=== PATIENT | female | born 2000 | race Caucasian/White ===

== ENCOUNTER 2023-07-27 14:35 | Emergency (ER) | payer OTHER, SELFPAY ==
[2023-07-27 14:46] VITALS: BP 106/79; PULSE 89; RESP 14; TEMP 36.6; O2SAT 99; BMI 44.7
--- NOTE | 2023-07-27 15:59 | ED_ITS ---
HPI - URI/Sore Throat General Chief Complaint: Upper Respiratory Infection Stated Complaint: CONGESTION/LUMP IN CHEST Time Seen by Provider: 07/27/23 14:53 Source: patient History of Present Illness HPI Narrative: Patient presenting with upper respiratory runny nose and mild symptoms but she also have this right-sided medial lump that she noted in her right breast she noted that 3 to 4 days ago and she just was menstruating during that time. No tender abdominal pain no nausea no vomiting no other complaints No history of breast-feeding and there is no history of any fever chills or any other complaints Related Data Allergies Allergy/AdvReac Type Severity Reaction Status Date / Time No Known Drug Allergies Allergy Verified 07/27/23 14:50 Review of Systems ROS Status of ROS 10 or more systems reviewed and unremark able except as noted in history and below Exam Narrative Exam Narrative: Nurses notes and vital signs reviewed and patient is not hypoxic. General: Well-appearing and in no apparent distress. Skin: Warm, dry, no pallor noted. No rash. Head: Normocephalic, atraumatic. Neck: Supple, non-tender. Eye: Pupils are equal, round and EOMI. No scleral icterus. Ears, Nose, Mouth, and Throat: TM are clear, no nasal mucosal hypertrophy. Oral mucosa is moist, no posterior oropharynx erythema, uvula is mid-line Cardiovascular: Regular Rate and Rhythm without murmur, gallop or rub. Respiratory: No accessory muscle use or respiratory distress. Lungs are clear to auscultation, no wheezing, rales or rhonchi Chest Wall: no tenderness Back: No midline thoracic or lumbar vertebral tenderness. No CVA tenderness Musculoskeletal: normal ROM, no calf or popliteal tenderness, no lower extremity edema/swelling GI: Abdomen is soft, non-distended. Normal bowel sounds. No masses appreciated. No tenderness to palpation. No rebound, guarding, or rigidity noted. Neurological: A&O x4. No cranial nerve dysfunction observed. No truncal ataxia. Moves all extremities. Sensation intact. Psychiatric: Cooperative and interactive. Normal mood and affect. Breast examination Left breast examination is benign right breast examination shows no nipple retraction and no signs of infection the patient have a almost a 1 x 2 cm lump on the medial aspect of the lower medial quadrant of the breast that is movable nontender on examination and does not show redness hotness or any signs of skin infection Constitutional Vital Signs, click to edit/add: Last Vital Signs Temp 97.9 F 07/27/23 14:46 Pulse 89 07/27/23 14:46 Resp 14 07/27/23 14:46 BP 106/79 07/27/23 14:46 Pulse Ox 99 07/27/23 14:46 Course Vital Signs Vital signs: Vital Signs Temperature 97.9 F 07/27/23 14:46 Pulse Rate 89 07/27/23 14:46 Respiratory Rate 14 07/27/23 14:46 Blood Pressure 106/79 07/27/23 14:46 Pulse Oximetry 99 07/27/23 14:46 Temperature 97.9 F 07/27/23 14:46 Pulse Rate 89 07/27/23 14:46 Respiratory Rate 14 07/27/23 14:46 Blood Pressure 106/79 07/27/23 14:46 Pulse Oximetry 99 07/27/23 14:46 MDM - URI/Sore Throat MDM Narrative Medical decision making narrative: Patient mentioned that she have a positive family history of breast cancer but she did not specify who exactly Right now her presentation is less likely to be due to cancer but due to the history the patient will be ordered outpatient mammogram diagnostic for the right breast and she was referred to her result to her [employer] doctor as her primary care doctor is unknown Patient to continue supportive care for her viral infection symptoms The patient also was given the option that she need to have the ultrasound done by following up with her primary care but I did explain to the patient that is very important as to follow-up specially with her history of family breast cancer Discharge Plan Discharge Chief Complaint: Upper Respiratory Infection Clinical Impression: Upper respiratory infection Qualifiers: URI type: unspecified URI Qualified Code(s): J06.9 - Acute upper respiratory infection, unspecified Breast lump Qualifiers: Laterality: right Breast mass location: lower inner quadrant Qualified Code(s): N63.14 - Unspecified lump in the right breast, lower inner quadrant Patient Disposition: Home, Self-Care Time of Disposition Decision: 15:59 Condition: Good Instructions: Upper Respiratory Infection (DC), Breast Mass (ED) Stand Alone Forms: Portal Instructions Referrals: ALEXYS DELGADO [Primary Care Provider] - 1 week
== END 2023-07-27 16:18 | disposition home or self-care (01) ==
PROVIDERS: Emergency Provider Emergency Medicine; PCP Obstetrics & Gynecology
DX: J06.9 Acute upper respiratory infection, unspecified (principal); N63.14 Unspecified lump in the right breast, lower inner quadrant
CPT/HCPCS: 99283

== ENCOUNTER 2024-10-16 10:27 | Emergency (ER) | payer OTHER, SELFPAY ==
--- OUTSIDE RECORDS SUMMARY | 2024-10-16 10:38 | XMS_ITS | CCD ---
Demographics Address [address] [place], [place] [id number] Mobile Preferred Language en Marital Status Bahai Affiliation Unknown Race White Ethnic Group Not or Lati no Author Organization [facility] Care Team Providers Care Director Of Brand Marketing Name Role Phone YURI PHILIP Unavailable UnavailYURI Ramriez Unavailable Unavaila dick WOODSVENTURA, VESELIN Unavailable Unavailable MIKO CARLOS Unavailable Unavailable Unavailable Primary Care Provider UnavailGRACIA Abdi Attending Unavailable GRACIA WHITNEY Consulting Unavailable GRACAI WHITNEY Admitting Unavailable DR ALEXYS DELGADO Primary Care Unavailable MIKO CROWDER Unavailable SHABBIR MI Primary Care Unavailable Mattie Lipscomb Unavailable Unavailable Unavailable Shabbir MI Primary Care Physician Doreen GARRETT Unavailable Shabbir Mi Primary Care Provider MD Raul Ogden Jr Emergency Provider GIANCARLO Candelario Emergency Provider [phone] Shabbir Mi Primary Care Provider [phone] MD Evan Moore Attending Provider [phone] NO FAMILY, PHYSICIAN Primary Care Provider Unava ilable NONE, XXXX Primary Care Physician Unavailab eugene Lipscomb, Dr. Mattie Weir Primary Care U navailable Ruel, Dr. Mattie Weir Attending U navailable Ruel, Dr. Mattie Weir Primary Care U navailable Ruel, Dr. Mattie Weir Attending U navailable Self, Referral Referring Unavailable Ruel, Dr. Mattie Weir Primary Care U navailable Ksdonnell, Dr. Orlando Lozano Primary Care Unava ilable [facility], Dr. Orlando Lozano Attending Unava ilable [facility], Dr. Orlando Lozano Referring Unava ilable Self, Referral Referring Unavailable Musat, Jp Soraya Attending Unavailernesto Lipscomb, Dr. Mattie Weir Attending U brittney Lipscomb, Dr. Mattie Weir [facility] Physician Unava ilable Shabbir Mi Primary Care Provider [phone] MD Evan Moore Attending Provider NO FAMILY, PHYSICIAN Primary Care Provider Unava ilable NON STAFF Primary Care Provider UnavailDO Sanaz Weldon Attending Provider MD Evan Moore Admit Provider MD Evan Moore Admit Provider Gary Candelario Admitting Unavailable Gary Candelario Attending Unavailable Shabbir Mi Primary Care Unavailable Printlizbeth, Evan Admitting Unavailable Teresa Evan Attending Unavailable Shabbir Mi Primary Care Unavailable Printy, Evan Admitting Unavailable Teresa Evan Attending Unavailable NO FAMILY, PHYSICIAN Primary Care Unavailable Dinorah Mooreian Admitting Unavailable Dinorah Mooreian Attending Unavailable NON STAFF Primary Care Unavailable Kareen Sanaz Admitting Unavailable Kareen Sanaz Attending Unavailable NON STAFF Primary Care Unavailable Shabbir Mi Primary Care Unavailable Raul Ogden Jr Admitting Unavailable Raul Ogden Jr Attending Unavailable Mattie Lipscomb MD Unavailable [phone] Orlando Pace MD Primary Care Provider DOREEN HA Primary Care Physician [phone] DOREEN HA Primary Care Unavailable Doaryen, DO Minervan A Attending Unavailable DOREEN HA Primary Care Unavailable Ramin, Astrit H Attending Unavailable Bi Galeana Attending Unavailable DOREEN HA Primary Care Unavailable Blake Rivera Attending Unavailable DOREEN HA Primary Care Unavailable Dokken, DO Kaylinn A Attending Unavailable Papi CRAWFORD Attending Unavailable Bi Galeana Attending Unavailable Ramin, Astrit H Attending Unavailable Bi Galeana Attending Unavailable DOREEN HA Primary Care Unavailable Hajdari, Astrit H Attending Unavailable LELAND, DOREEN Primary Care Unavailable LELAND, DOREEN Primary Care Unavailable Kosta Carter Attending Unavailable JEANINE TORRE Admitting Unavailable JEANINE TORRE Attending Unavailable LELAND, DOREEN Primary Care Unavailable DO Aleta Oliveira Attending Unavailable DoDO Aleta kapoor Attending Unavailable LELAND, DOREEN Primary Care Unavailable Unallocated , Noms Provider Primary Care Prov salvador LELAND, DOREEN Primary Care Unavailable Hamarcin, Astrit H Attending Unavailable Bi Galeana Attending Unavailable LELAND, DOREEN Primary Care Unavailable Bi Galeana Attending Unavailable LELAND, DOREEN Primary Care Unavailable LELAND, DOREEN Primary Care Unavailable LELANDDOREEN LICEA Attending Unavailable LELAND, DOREEN Admitting Unavailable Hamarcin, Astrit H Attending Unavailable LELAND, DOREEN Primary Care Unavailable LELAND, DOREEN Attending Unavailable LELAND, DOREEN Primary Care Unavailable LELAND, DOREEN Admitting Unavailable DOREEN GARRETT Attending Unavailable DOLRUBI, FAMILIA Rosas Attending Unavailable DOLCE, FAMILIA Rosas Attending Unavailable DOLCE, FAMILIA Rosas Attending Unavailable DOLCE, FAMILIA Rosas Attending Unavailable LELAND, DOREEN Attending Unavailable LELAND, DOREEN Admitting Unavailable LELAND, DOREEN Primary Care Unavailable Papi CRAWFORD Attending Unavailable LELAND, DOREEN Primary Care Unavailable Luz Marina FREGOSO Attending Unavailable LELAND, DOREEN Primary Care Unavailable LELAND, DOREEN Primary Care Unavailable Luz Marina FREGOSO Attending Unavailable DOREEN HA Attending Unavailable LELAND, DOREEN Referring Unavailable LELAND, DOREEN Primary Care Unavailable Papi CRAWFORD Attending Unavailable LELAND, DOREEN Primary Care Unavailable Luz Marina FREGOSO Attending Unavailable LELAND, DOREEN Primary Care Unavailable ILDEFONSOLuz Marina WHEELER Attending Unavailable LELAND, DOREEN Primary Care Unavailable LELAND, DOREEN Primary Care Unavailable Eric Ramírez Attending Unavailable Medications Current Medications Medication Drug Class(es) Dates Sig (Normalized) Sig (Original) acyclovir 400 mg oral tablet (1 source) Herpesvirus Nucleoside Analog DNA Polymerase Inhibitor, Herpes Simplex Virus Nucleoside Analog DNA Polymerase Inhibitor, Herpes Zoster Virus Nucleoside Analog DNA Polymerase Inhibitor Start: 01-04-2020 End: 01-14-2020 take 1 tablet by mouth three times daily acyclovir (ZOVIRAX) 400 MG tablet Take 1 tablet by mouth 3 times daily for 10 days If you have repeat flareup, take 400 mg 3 times daily for 5 days 30 tablet 0 01/04/2020 01/14/2020 Active amoxicillin 500 mg oral capsule (1 source) Penicillin-class Antibacterial Start: 05-17-2024 End: 05-27-2024 take 1 capsule by mouth three times daily amoxicillin 500 mg Cap 500 mg = 1 cap(s), Oral, TID, X 10 day(s), # 30 cap(s), Refills(s) 0, Pharmacy: [id number], 162, cm, 05/09/24 14:21:00 EDT, Height/Length Dosing, 121.6, kg, 05/09/24 14:21:00 EDT, Weight Dosing Start Date: 05/17/24 Stop Date: 05/27/24 Status: Ordered amoxicillin 875 mg / clavulanate 125 mg oral tablet (7 sources) Penicillin-class Antibacterial Start: 08-22-2023 End: 09-01-2023 Augmentin 875 mg-125 mg Tab 1 tab(s), Oral, q12hr for 10 day(s), 20 tab(s), Refill(s) 0, [facility], 162, cm, 08/22/23 22:19:00 EST, Height/Length Dosing, 122.4, kg, 08/22/23 22:19:00 EST, Weight Dosing Start Date: 08/22/23 Stop Date: 09/01/23 Status: Ordered Start: 04-07-2021 End: 04-16-2022 take 1 tablet by mouth twice daily Amoxicillin-Pot Clavulanate (Augmentin) 875-125 mg tablet Discontinued 1 TAB PO Twice daily 16 05April 07, 2021 12:00am April 16, 2022 4:21am azithromycin 250 mg Tab 5-day Dose Pack (Z-Rafi) (1 source) Start: 04-24-2023 End: 04-29-2023 azithromycin 250 mg Tab 5-day Dose Pack (Z-Rafi) = 1 packet(s), Oral, As Directed, as directed on package labeling, X 5 day(s), # 6 tab(s), Refills(s) 0, Pharmacy: [id number], 163, cm, 04/24/23 9:56:00 EDT, Height/Length Dosing, 118, kg, 04/24/23 9:56:00 EDT, Weight Dosing Start Date: 04/24/23 Stop Date: 04/29/23 Status: Ordered cephalexin 500 mg oral capsule (3 sources) Cephalosporin Antibacterial Start: 07-25-2023 End: 08-01-2023 take 1 capsule by mouth every six hours Keflex 500 mg Cap 500 mg = 1 cap(s), Oral, q6hr, X 7 day(s), # 28 cap(s), Refills(s) 0, Pharmacy: [facility], 163, cm, 07/25/23 20:26:00 EST, Height/Length Dosing, 123.3, kg, 07/25/23 20:26:00 EST, Weight Dosing Start Date: 07/25/23 Stop Date: 08/01/23 Status: Ordered Start: 11-27-2022 End: 12-02-2022 take 1 capsule by mouth three times daily Keflex 500 mg Cap 500 mg = 1 cap(s), Oral, TID, X 5 day(s), # 15 cap(s), Refills(s) 0, Pharmacy: [facility], 160, cm, 11/27/22 20:40:00 EDT, Height/Length Dosing, 119.2, kg, 11/27/22 20:40:00 EDT, Weight Dosing Start Date: 11/27/22 Stop Date: 12/02/22 Status: Ordered cyclobenzaprine hydrochloride 10 mg oral tablet (5 sources) Muscle Relaxant Start: 05-30-2024 take 1 tablet by mouth three times daily as needed for muscle spasms cyclobenzaprine 10 mg Tab 10 mg = 1 tab(s), Oral, TID, PRN for spasm, # 30 tab(s), Refills(s) 0, Pharmacy: [facility], 162, cm, 05/30/24 14:27:00 EST, Height/Length Dosing, 127, kg, 05/30/24 14:27:00 EST, Weight Dosing Start Date: 05/30/24 Status: Ordered dextromethorphan hydrobromide 3 mg/ml / promethazine hydrochloride 1.25 mg/ml oral solution (1 source) Phenothiazine, Uncompetitive R-[id number]-[id number]-aspartat e Receptor Antagonist, Sigma-1 Agonist Start: 09-23-2023 End: 09-28-2023 take 5 mL by mouth every six hours for cough dextromethorphan-pr omethazine 15 mg-6.25 mg/5 mL Oral Syrup 5 mL 5 mL, Oral, q6hr for cough for 5 day(s), 200 mL, Refill(s) 0, [facility], 162, cm, 09/23/23 8:58:00 EST, Height/Length Dosing, 121.6, kg, 09/23/23 8:58:00 EST, Weight Dosing Start Date: 09/23/23 Stop Date: 09/28/23 Status: Ordered dicyclomine hydrochloride 10 mg oral capsule (3 sources) Anticholinergic Start: 03-09-2019 End: 03-19-2019 take 1 capsule by mouth four times daily before mealtime dicyclomine (BENTYL) 10 MG capsule Take 1 capsule by mouth 4 times daily (before meals and nightly) for 10 days 40 capsule 0 03/09/2019 Active fluconazole 150 mg oral tablet (3 sources) Azole Antifungal Start: 12-30-2019 fluconazole (DIFLUCAN) 150 MG tablet Take one tablet after you finish antibiotic 1 tablet 0 12/30/2019 Active Start: 12-30-2019 End: 12-30-2019 fluconazole (DIFLUCAN) table t 200 mg HYDROmorphone hydrochloride 2 mg oral tablet (2 sources) Opioid Agonist Start: 11-06-2022 End: 11-13-2022 take 1 tablet by mouth every four hours as needed for pain Dilaudid 2 mg Tab 2 mg = 1 tab(s), Oral, q4hr, PRN for pain, X 7 day(s), # 30 tab(s), Refills(s) 0, Pharmacy: [facility], 160, cm, 11/06/22 9:52:00 EDT, Height/Length Dosing, 125.6, kg, 11/06/22 9:52:00 EDT, Weight Dosing Start Date: 11/06/22 Stop Date: 11/13/22 Status: Ordered ibuprofen 600 mg oral tablet (20 sources) Nonsteroidal Anti-inflammatory Drug Start: 11-06-2022 take 1 tablet by mouth every six hours ibuprofen 600 mg Tab 600 mg = 1 tab(s), Oral, q6hr, # 40 tab(s), Refills(s) 0, Pharmacy: [facility], 160, cm, 11/06/22 9:52:00 EDT, Height/Length Dosing, 125.6, kg, 11/06/22 9:52:00 EDT, Weight Dosing Start Date: 11/06/22 Status: Ordered 3 ml insulin isophane, human 100 unt/ml pen injector (20 sources) Start: 10-26-2022 Insulin Nph Isoph U-100 Human (Humulin N Nph Insulin Kwikpen) 100 unit/mL (3 mL) Insulin Pen Active 12 UNIT SUBCUT Twice daily October 26, 2022 12:00am Start: 09-27-2022 inject 12 [IU] by saenz bcutaneous injection once daily in the evening Humulin N 12 unit(s), SubCutaneous, qPM, Refills(s) 0 Start Date: 09/27/22 Status: Ordered Start: 09-27-2022 inject 12 [IU] by saenz bcutaneous injection once daily in the morning Humulin N 12 unit(s), SubCutaneous, qAM, Refills(s) 0 Start Date: 09/27/22 Status: Ordered Lidocaine 2% Viscous (7 sources) Start: 05-09-2024 Lidocaine 2% Viscous 0.1 gm, 5 mL, Topical, QIDACHS, 100 mL, Refill(s) 0, [facility], 162, cm, 05/09/24 14:21:00 EDT, Height/Length Dosing, 121.6, kg, 05/09/24 14:21:00 EDT, Weight Dosing Start Date: 05/09/24 Status: Ordered methocarbamol 750 mg oral tablet (1 source) Muscle Relaxant Start: 01-14-2023 End: 01-21-2023 take 1 tablet by mouth three times daily Robaxin-750 oral tablet 750 mg = 1 tab(s), Oral, TID, X 7 day(s), # 21 tab(s), Refills(s) 0, Pharmacy: [facility], 160, cm, 01/14/23 10:35:00 EDT, Height/Length Dosing, 121, kg, 01/14/23 10:35:00 EDT, Weight Dosing Start Date: 01/14/23 Stop Date: 01/21/23 Status: Ordered methylPREDNISolone 4 mg oral tablet (3 sources) Corticosteroid Start: 05-19-2024 End: 05-19-2024 take 1 tablet by mouth once methylPREDNISolone (Medrol Dospak) 4 MG tablets Indications: Acute Bursitis Take 1 tablet (4 mg) by mouth 1 (one) time for 1 dose Follow schedule on package instructions 1 each 05/19/2024 05/19/2024 Active Start: 02-27-2023 End: 03-05-2023 Medrol 4 mg Tab = 1 packet(s ), Oral, As Directed, as directed on package labeling, X 6 day(s), # 21 tab(s), Refills(s) 0, Pharmacy: [facility], 163, cm, 02/27/23 10:56:00 EDT, Height/Length Dosing, 118, kg, 02/27/23 10:56:00 EDT, Weight Dosing Start Date: 02/27/23 Stop Date: 03/05/23 Status: Ordered nitrofurantoin, macrocrystals 25 mg / nitrofurantoin, monohydrate 75 mg oral capsule (8 sources) Nitrofuran Antibacterial Start: 10-26-2022 take 1 capsule by mouth every twelve hours at mealtime Nitrofurantoin Monohyd/M-Cryst (Macrobid) 100 mg Capsule Active 100 MG PO Q12H October 26, 2022 12:00am must administer with a meal/food Start: 01-16-2022 take [address] [facility] once daily Nitrofurantoin Monohyd Macro 100 MG Oral Capsule TAKE 1 CAPSULE EVERY 12 HOURS DAILY. Quantity: 20 Refills: 0 Ordered: 16-Jan-2022 Mattie Lipscomb MD Start : 16-Jan-2022 Active Start: 01-04-2020 End: 01-11-2020 take 1 capsule by mouth twice daily nitrofurantoin, macrocrystal-monohydrate, (MACROBID) 100 MG capsule Take 1 capsule by mouth 2 times daily for 7 days 14 capsule 0 01/04/2020 01/11/2020 Active Raysal (No Known Home Meds) (1 source) Start: 04-20-2022 Raysal (No Known Home Meds) Active April 20, 2022 12:00am nystatin 913091 unt/ml topical cream (2 sources) Polyene Antifungal Start: 12-30-2019 nystatin (MYCOSTATIN) 784897 UNIT/GM cream Apply topically 2 times daily. 1 Tube 0 12/30/2019 Active penicillin v potassium 500 mg oral tablet (1 source) Start: 05-09-2024 End: 05-16-2024 take 1 tablet by mouth every six hours penicillin V potassium 500 mg Tab 500 mg = 1 tab(s), Oral, q6hr, X 7 day(s), # 28 tab(s), Refills(s) 0, Pharmacy: [facility], 162, cm, 05/09/24 14:21:00 EDT, Height/Length Dosing, 121.6, kg, 05/09/24 14:21:00 EDT, Weight Dosing Start Date: 05/09/24 Stop Date: 05/16/24 Status: Ordered polyethylene glycol 3350 84585 mg powder for oral solution (1 source) Osmotic Laxative Start: 03-09-2019 End: 04-08-2019 take 17 g by mouth once daily polyethylene glycol (GLYCOLAX) powder Take 17 g by mouth daily 510 g 0 03/09/2019 04/08/2019 Active Multivitamins with Folic Acid 1.25 mg oral tablet (20 sources) Start: 09-27-2022 Multivitamins with Folic Acid 1.25 mg oral tablet Refill(s) 0 Start Date: 09/27/22 Status: Ordered [id number] Acid ( Multi) 27-800 mg-mcg Tablet (2 sources) Start: 10-26-2022 [id number] Acid ( Multi) 27-800 mg-mcg Tablet Active TAB PO October 26, 2022 12:00am sodium phosphate 67.8 mg/ml / sodium phosphate, monobasic 185 mg/ml enema (1 source) Start: 03-09-2019 End: 03-09-2019 fleet rectal enema 1 enema sulfamethoxazole 800 mg / trimethoprim 160 mg oral tablet (15 sources) Dihydrofolate Reductase Inhibitor Antibacterial, Sulfonamide Antimicrobial Start: 07-27-2023 Bactrim D.S. 800 mg-160 mg Tab 1 tab(s), Oral, BID, 20 tab(s), Refill(s) 0, [facility], 163, cm, 07/27/23 21:11:00 EST, Height/Length Dosing, 123.4, kg, 07/27/23 21:11:00 EST, Weight Dosing Start Date: 07/27/23 Status: Ordered Start: 12-30-2019 End: 01-04-2020 take 1 tablet by mouth twice daily sulfamethoxazole-trimethoprim (BACTRIM D S) 800-160 MG per tablet Take 1 tablet by mouth 2 times daily for 5 days 10 tablet 0 12/30/2019 01/04/2020 Discontinued Start: 12-30-2019 End: 12-30-2019 sulfamethoxazole-trimethopri m (BACTRIM DS;SEPTRA DS) 800-160 MG per tablet 1 tablet Zofran ODT 4 mg Tab-Dis (20 sources) Start: 09-23-2023 take 1 tablet by mouth three times daily Zofran ODT 4 mg Tab-Dis 4 mg = 1 tab(s), Oral, TID, # 15 tab(s), Refills(s) 0, Pharmacy: [facility], 162, cm, 09/23/23 8:58:00 EST, Height/Length Dosing, 121.6, kg, 09/23/23 8:58:00 EST, Weight Dosing Start Date: 09/23/23 Status: Ordered Start: 07-27-2023 take 1 tablet by delon th every eight hours Zofran ODT 4 mg Tab-Dis 4 mg = 1 tab(s), Oral, q8hr, # 12 tab(s), Refills(s) 0, Pharmacy: [facility], 163, cm, 07/27/23 21:11:00 EST, Height/Length Dosing, 123.4, kg, 07/27/23 21:11:00 EST, Weight Dosing Start Date: 07/27/23 Status: Ordered Start: 07-13-2023 take 1 tablet by delon th every eight hours as needed for nausea Zofran ODT 4 mg Tab-Dis 4 mg = 1 tab(s), Oral, q8hr, PRN Nausea/Vomiting, # 12 tab(s), Refills(s) 0, Pharmacy: [facility], 163, cm, 07/13/23 15:31:00 EST, Height/Length Dosing, 117.9, kg, 07/13/23 15:31:00 EST, Weight Dosing Start Date: 07/13/23 Status: Ordered Completed/Discontinued Medications Medication Drug Class(es) Dates Sig (Normalized) Sig (Original) azithromycin 500 mg oral tablet (1 source) Macrolide Antimicrobial Start: 01-04-2020 End: 01-04-2020 azithromycin (ZITHROMAX) tablet 1,000 mg cefTRIAXone 250 mg injection (1 source) Cephalosporin Antibacterial Start: 01-04-2020 End: 01-04-2020 cefTRIAXone (ROCEPHIN) injection 250 mg Iopamidol (1 source) Radiographic Contrast Agent Start: 03-08-2019 End: 03-08-2019 iopamidol (ISOVUE-300) 61 % injection 100 mL magnesium citrate (1 source) Start: 03-09-2019 End: 03-09-2019 magnesium citrate solution 296 mL metroNIDAZOLE 500 mg oral tablet (1 source) Nitroimidazole Antimicrobial Start: 01-04-2020 End: 01-04-2020 metroNIDAZOLE (FLAGYL) tablet 2,000 mg naproxen 500 mg oral tablet (20 sources) Nonsteroidal Anti-inflammatory Drug Start: 11-27-2022 take 1 tablet by mouth twice daily naproxen 500 mg Tab 500 mg = 1 tab(s), Oral, BID, Take one tab by mouth two times a day, # 14 tab(s), Refills(s) 0, Pharmacy: [facility], 160, cm, 01/14/23 10:35:00 EDT, Height/Length Dosing, 121, kg, 01/14/23 10:35:00 EDT, Weight Dosing Start Date: 01/14/23 Status: Ordered Start: 07-13-2021 End: 04-16-2022 take 1 tablet by mouth twice daily Naproxen (Naprosyn) 500 mg tablet Discontinued 500 MG PO Twice daily July 13, 2021 1:00am April 16, 2022 4:21am ondansetron 4 mg disintegrating oral tablet (5 sources) Serotonin-3 Receptor Antagonist Start: 04-20-2022 End: 09-09-2022 take 4 mg by mouth four times daily Ondansetron Discontinued 4 MG PO Four times daily April 20, 2022 12:00am September 09, 2022 2:43pm Start: 03-09-2019 End: 03-14-2019 take 1 tablet by mouth every eight hours as needed for nausea ondansetron (ZOFRAN ODT) 4 MG disintegrating tablet Take 1 tablet by mouth every 8 hours as needed for Nausea or Vomiting 15 tablet 0 03/09/2019 03/14/2019 Active phenazopyridine hydrochloride 200 mg oral tablet (1 source) Start: 11-23-2018 End: 03-08-2019 take 1 tablet by mouth three times daily as needed for pain phenazopyridine (PYRIDIUM) 200 MG tablet Take 1 tablet by mouth 3 times daily as needed for Pain 9 tablet 0 11/23/2018 03/08/2019 Discontinued 50 ml sodium chloride 9 mg/ml injection (1 source) Start: 03-08-2019 End: 03-09-2019 0.9 % sodium chloride bolus Problems Active Problems Problem Classification Problem Date Documented Da te Episodic/Chronic Abdominal pain (2 sources) Lower abdominal pain; Translations: [Abdominal pain] Onset: 11-27-2022 Episodic Anxiety disorders (20 sources) Anxiety; Translations: [Posttraumatic stress disorder] Onset: 01-10-2023 12-13-2018 Chronic Cardiac dysrhythmias (10 sources) Cardiac arrhythmia; Translations: [Cardiac arrhythmia, unspecified] Onset: 12-11-2022 01-10-2023 Chronic Contraceptive and procreative management (20 sources) Contraception ; Translations: [Sterilization requested] Onset: 11-06-2022 06-15-2020 Episodic Diabetes or abnormal glucose tolerance complicating ; childbirth; or the puerperium (20 sources) Gestational diabetes mellitus; Translations: [Gestational diabetes mellitus in childbirth] Onset: 08-16-2022 10-08-2022 Episodic Disorders of teeth and jaw (2 sources) Disorder of teeth AND/OR supporting structures; Translations: [Other specified disorders of teeth and supporting structures] Onset: 05-09-2024 Episodic E Codes: Natural/environment (6 sources) Cat scratch - wound; Translations: [Scratched by cat, initial encounter] 04-07-2021 Episodic Early or threatened labor (4 sources) False labor before 37 completed weeks of gestation, third trimester; Translations: [FALSE LABR BEFOR 37 WK GEST 3RD TRI] Onset: 12-20-2020 Episodic Malaise and fatigue (20 sources) Fatigue; Translations: [Other fatigue] Onset: 01-10-2023 12-13-2018 Episodic Menstrual disorders (20 sources) Amenorrhea 06-15-2020 Chronic Mood disorders (20 sources) Mood disorder; Translations: [Bipolar disorder, unspecified] Onset: 01-09-2023 12-16-2018 Chronic Mycoses (1 source) Candidiasis of skin; Translations: [Skin yeast infection] Episodic Nausea and vomiting (3 sources) Nausea; Translations: [Nausea and vomiting] Onset: 07-13-2023 Episodic Nonmalignant breast conditions (1 source) Inflammatory disorder of breast; Translations: [Mastitis without abscess] Onset: 07-25-2023 Episodic Nonspecific chest pain (8 sources) Atypical chest pain; Translations: [Other chest pain] Onset: 02-07-2022 01-09-2023 Episodic Other complications of (20 sources) Maternal obesity complicating , childbirth and the puerperium, antepartum; Translations: [Obesity complicating , second trimester] Onset: 12-11-2022 Resolved: 01-10-2023 07-17-2020 Chronic Other complications of (20 sources) High risk ; Translations: [Supervision of high risk , unspecified, second trimester] Onset: 01-10-2023 07-17-2020 Episodic Other complications of (20 sources) Mental disorder during - baby not yet delivered; Translations: [Other mental disorders complicating , unspecified trimester] Onset: 01-10-2023 06-15-2020 Episodic Other connective tissue disease (7 sources) Fibromyalgia; Translations: [Myalgia and myositis, unspecified] Onset: 01-09-2023 01-10-2023 Episodic Other connective tissue disease (20 sources) Pain in upper limb 10-18-2019 Episodic Other connective tissue disease (1 source) Disorder of soft tissue; Translations: [Other specified soft tissue disorders] Onset: 11-11-2022 Episodic Other connective tissue disease (1 source) Spasm; Translations: [Other muscle spasm] Onset: 01-14-2023 Episodic Other connective tissue disease (6 sources) Plantar fasciitis; Translations: [Plantar fascial fibromatosis] 05-19-2024 Episodic Other connective tissue disease (3 sources) Calcaneal spur of right foot; Translations: [Calcaneal spur, right foot] 05-19-2024 Episodic Other connective tissue disease (3 sources) Calcaneal spur of left foot; Translations: [Calcaneal spur, left foot] 05-19-2024 Episodic Other connective tissue disease (12 sources) Deformity of lower limb; Translations: [Contracture of muscle, left lower leg] 05-19-2024 Episodic Other gastrointestinal disorders (1 source) Diarrhea; Translations: [Diarrhea, unspecified] Onset: 07-13-2023 Episodic Other infections; including parasitic (1 source) Trichomonal vaginitis; Translations: [Trichomonas vaginitis] Episodic Other nervous system disorders (20 sources) Neuropathy; Translations: [Polyneuropathy, unspecified] Onset: 01-10-2023 12-13-2018 Chronic Other nervous system disorders (1 source) Mononeuropathy; Translations: [Mononeuropathy, unspecified] Chronic Other nervous system disorders (1 source) Chronic pain; Translations: [Other chronic pain] Chronic Other non-traumatic joint disorders (20 sources) Shoulder pain; Translations: [Pain in right shoulder] Onset: 01-10-2023 10-18-2019 Episodic Other non-traumatic joint disorders (6 sources) Acute ankle pain; Translations: [Pain in left ankle and joints of left foot] 07-13-2021 Episodic Other nutritional; endocrine; and metabolic disorders (20 sources) Body mass index 40+ - severely obese; Translations: [Morbid obesity] 10-18-2019 Chronic Other nutritional; endocrine; and metabolic disorders (20 sources) Body mass index 30+ - obesity; Translations: [Obesity, unspecified] Onset: 01-10-2023 Resolved: 01-10-2023 08-29-2020 Chronic Other nutritional; endocrine; and metabolic disorders (20 sources) Morbid obesity; Translations: [Morbid (severe) obesity due to excess calories] Onset: 01-10-2023 Resolved: 01-10-2023 03-24-2019 Chronic Other nutritional; endocrine; and metabolic disorders (20 sources) Severe obesity; Translations: [Morbid (severe) obesity due to excess calories] Onset: 01-10-2023 10-18-2019 Chronic Other and delivery including normal (2 sources) Urine test positive; Translations: [ examination or test, positive result] Onset: 11-06-2022 Episodic Other upper respiratory infections (11 sources) Acute pharyngitis, unspecified; Translations: [Laryngitis] Onset: 04-01-2017 04-16-2022 Episodic Otitis media and related conditions (1 source) Otitis media; Translations: [Otitis media, unspecified, left ear] Onset: 08-22-2023 Episodic Residual codes; unclassified (1 source) 36 weeks gestation of ; Translations: [36 WEEKS GESTATION OF ] Onset: 12-28-2020 Episodic Residual codes; unclassified (1 source) Gestation period, 38 weeks; Translations: [38 weeks gestation of ] Onset: 11-06-2022 Episodic Residual codes; unclassified (1 source) Other general symptoms and signs; Translations: [Other general symptoms and signs] Onset: 09-23-2023 Episodic Schizophrenia and other psychotic disorders (7 sources) Schizophrenia; Translations: [Unspecified schizophrenia, unspecified] Onset: 01-09-2023 01-10-2023 Chronic Skin and subcutaneous tissue infections (1 source) Cellulitis; Translations: [Cellulitis, unspecified] Onset: 07-27-2023 Episodic Spondylosis; intervertebral disc disorders; other back problems (20 sources) Sciatica, right side; Translations: [Sciatica, left side] Onset: 05-05-2018 12-13-2018 Episodic Sprains and strains (5 sources) Sprain of foot; Translations: [Unspecified sprain of unspecified foot, initial encounter] Onset: 12-02-2022 Episodic Substance-related disorders (20 sources) Smoker; Translations: [Nicotine dependence, unspecified, uncomplicated] Onset: 01-10-2023 02-11-2021 Chronic Comment on above: Added secondary to d ocumentation in Social History. Substance-related disorders (20 sources) Marijuana user; Translations: [Maternal drug use] Onset: 01-10-2023 10-08-2022 Episodic Superficial injury; contusion (1 source) Traumatic blister of genitalia; Translations: [Blister (nonthermal) of vagina and vulva, initial encounter] Episodic Unclassified (1 source) False labor at or after 37 completed weeks of gestation; Translations: [False labor at or after 37 completed weeks of gestation] Onset: 10-26-2022 Unclassified (1 source) False labor before 37 completed weeks of gestation, third trimester; Translations: [False labor before 37 completed weeks of gestation, third trimester] Onset: 09-09-2022 Unclassified (1 source) Encounter for other specified screening; Translations: [Encounter for other specified screening] Onset: 08-09-2022 Viral infection (5 sources) Viral disease; Translations: [Viral infection, unspecified] 04-20-2022 Episodic Past or Other Problems Problem Classification Problem Date Documented Da te Episodic/Chronic Allergic reactions (1 source) Dermatitis, unspecified; Translations: [Dermatitis, unspecified] Onset: 07-28-2017 Episodic Genitourinary symptoms and ill-defined conditions (7 sources) Dysuria; Translations: [Dysuria] Onset: 01-09-2023 Resolved: 01-10-2023 01-10-2023 Episodic Other gastrointestinal disorders (1 source) Constipation, unspecified; Translations: [Constipation, unspecified] Onset: 04-29-2017 Episodic Other gastrointestinal disorders (1 source) Constipation; Translations: [Constipation, unspecified constipation type] Episodic Residual codes; unclassified (1 source) 25 weeks gestation of ; Translations: [25 weeks gestation of ] Onset: 08-09-2022 Episodic Unclassified (20 sources) None (qualifier value) 01-09-2014 Unclassified (20 sources) Onset: 02-26-2016 Resolved: 10-26-2022 11-09-2016 Unclassified (11 sources) Bipolar (qualifier value) 08-22-2023 Urinary tract infections (9 sources) Acute cystitis without hematuria; Translations: [Acute cystitis] Onset: 04-29-2017 Resolved: 01-10-2023 01-10-2023 Episodic Results Test Name Value Interpretation Reference Range Facility XR Ankle 3+ Views Lefton XR Ankle 3+ Views Left Exam Date/Time: 10/08/2024 22:39 EDT Reason for Exam: Injury Report IMPRESSION: NO EVIDENCE OF A FRACTURE OR OTHER BONE ABNORMALITY IN THE LEFT ANKLE. CLINICAL HISTORY: Injury COMPARISON: None available. FINDINGS: AP, lateral and oblique views of the left ankle demonstrates no fracture, dislocation or other bone abnormality. Ordering Provider: Eric Ramírez FINAL REPORT Dictated: 10/09/2024 12:16 pm Jesus Mendieta MD Signed (Electronic Signature): 10/09/2024 12:16 pm Signed by: Jesus Mendieta MD Transcribed by: SURINDER Technologist: PRISCILLA Cummings [facility] XR Wrist 3+ Views Lefton XR Wrist 3+ Views Left Exam Date/Time: 10/08/2024 22:39 EDT Reason for Exam: Pain, Traumatic Report IMPRESSION: NEGATIVE LEFT WRIST. EXAM: Left wrist, 4 views. CLINICAL HISTORY: Pain, Traumatic COMPARISON: None FINDINGS: AP, lateral, oblique and navicular views of the left wrist demonstrate no evidence of a fracture, dislocation, bone or joint abnormality. Ordering Provider: Eric Ramírez FINAL REPORT Dictated: 10/09/2024 12:17 pm Jesus Mendieta MD Signed (Electronic Signature): 10/09/2024 12:17 pm Signed by: Jesus Mendieta MD Transcribed by: SURINDER Technologist: PRISCILLA Cummings [facility] ED Clinical Summaryon 2024 ED Clinical Summary ED Clinical Summary [place] [id number] ED Clinical Summary Person Information Name: SCARLET DURAND [facility] Age: 24 Years : 2000 Sex: Female Language: Tuvaluan PCP: DOEREN HA CNP Marital Status: Phone: [phone] Visit Id: Visit Reason: Wrist pain-swelling; Wrist injury - Minor; Fall; FALL DOWN STAIRS, TWISTED LEFT ANKLE, HURT RIGHT ARM Speciality: Acuity: 3 Enc Type: Emergency Med Service: Emergency Arrival: 10/08/2024 21:15:19 Discharge: 10/08/2024 23:06:53 LOS: 000 01:51 Checkin: 10/08/2024 21:15:19 Checkout: 10/08/2024 23:06:53 Dispo Type: Home (Routine DC) EVENTS: Event Name Event Status Request Date/Time Start Date/Time Complete Date/Time Arrive Complete 10/08/2024 21:15:19 10/08/2024 21:15:19 10/08/2024 21:15:19 Document Home Meds Request 10/08/2024 21:15:19 Triage Complete 10/08/2024 21:15:19 10/08/2024 21:22:20 10/08/2024 21:22:20 Registration Complete 10/08/2024 21:18:33 10/08/2024 21:18:33 10/08/2024 21:18:33 Reg Complete Request 10/08/2024 21:18:33 Reg Bed Request Complete 10/08/2024 21:18:33 10/08/2024 21:18:33 10/08/2024 21:18:33 Bed Assign Complete 10/08/2024 21:34:21 10/08/2024 21:34:21 10/08/2024 21:34:21 Dr Exam Complete 10/08/2024 21:34:21 10/08/2024 21:34:28 10/08/2024 21:34:28 RN Exam Complete 10/08/2024 21:34:21 10/08/2024 21:58:08 10/08/2024 21:58:08 Registration Request 10/08/2024 21:34:28 X-Ray Complete 10/08/2024 22:00:09 10/08/2024 22:18:19 10/08/2024 22:40:00 Meds Admin Complete 10/08/2024 22:00:09 10/08/2024 22:03:42 Wet Read Request 10/08/2024 22:40:00 Discharge Complete 10/08/2024 22:51:46 10/08/2024 23:06:58 10/08/2024 23:06:58 Patient Care Complete 10/08/2024 22:52:18 10/08/2024 23:06:13 Transfer Complete 10/08/2024 23:06:58 10/08/2024 23:06:58 10/08/2024 23:06:58 ADDRESS: [address] [place] [address] [address] [facility] [id number] PHYS DOC NOTES: MEDICAL INFORMATION: Prescriptions Given: Medications to Continue with No Changes Other Medications cyclobenzaprine (cyclobenzaprine 10 mg Tab) 1 Tablets By Mouth 3 times a day as needed for spasm. Refills: 0. ibuprofen (ibuprofen 600 mg Tab) 1 Tablets By Mouth every 6 hours. Refills: 0. lidocaine topical (Lidocaine 2% Viscous) 5 Milliliter Topical four times a day (before meals and at bedtime). Refills: 0. multivitamin, ( Multivitamins with Folic Acid 1.25 mg oral tablet) naproxen (Naprosyn 500 mg Tab) 1 Tablets By Mouth 2 times a day. Refills: 0. naproxen (Naprosyn 500 mg Tab) 1 Tablets By Mouth 2 times a day as needed for pain. Refills: 0. naproxen (naproxen 500 mg Tab) 1 Tablets By Mouth 2 times a day. Take one tab by mouth two times a day. Refills: 0. ondansetron (Zofran ODT 4 mg Tab-Dis) 1 Tablets By Mouth 3 times a day. Refills: 0. ondansetron (Zofran ODT 4 mg Tab-Dis) 1 Tablets By Mouth every 8 hours as needed Nausea/Vomiting. Refills: 0. ondansetron (Zofran ODT 4 mg Tab-Dis) 1 Tablets By Mouth every 8 hours. Refills: 0. sulfamethoxazole-trimet hoprim (Bactrim D.S. 800 mg-160 mg Tab) 1 Tablets By Mouth 2 times a day. Refills: 0. PATIENT EDUCATION INFORMATION: Instructions: Wrist Sprain, Adult; Ankle Sprain Follow up: With: Address: When: [place] [address] Business (1) In 7 days 10/15/2024 DIAGNOSIS: Left wrist sprain; Sprain of ankle, left Normal [facility] ED Note-Physicianon 10-09-19 ED Note-Physician ED Note-Physician Basic Information Time Seen: Eric Ramírez DO 10/08/2024 21:34 Chief Complaint pt arrives for c/o of tripping down 6 steps. pt states she fell onto her left side. c/o left wrist and ankle pain. pt is able to ambulate into the ed History of Present Illness HPI: Patient is a 24-year-old female who presents to the ED for left wrist and ankle pain. Patient states that her child ended up tripping her and she fell down a couple of steps twisting her left ankle and and ended up tripping her and she fell down a couple of steps twisting her left ankle and landing on her left wrist. She denies any loss of consciousness or headache. She denies any neck or back pain. She has pain in her left wrist and left ankle. She has not taken any medications for this. ROS: Pertinent review of systems conducted and is negative except as noted above. Physical exam: General: nontoxic appearing and in no distress Neuro: awake and alert Neck: supple, trachea midline Card: Heart regular rate and rhythm no murmur Resp: Lungs clear to auscultation no wheeze or rhonchi Ext: No gross deformity or edema. Motion of the left elbow is intact. She has tenderness of the distal left radius and ulna without palpable deformity. She has no tenderness over the digits. No ecchymosis or erythema. Radial pulse 2+. Motor and sensation intact. Range of motion of the left knee intact. No tenderness of the proximal tibia or fibula. She does have tenderness over the medial and lateral malleolus without palpable deformity. There is some soft tissue swelling just distal to the left lateral malleolus. No tenderness of the foot. Motor sensation intact distally. Physical Exam Vitals & Measurements T: 36.5 ???C(Oral) HR: 105(Peripheral) RR: 17 BP: 131/78 SpO2: 100% HT: 162 cm WT: 121.8 kg BMI: 46.41 Medical Decision Making MEDICAL DECISION MAKING Number and Complexity of Problems Differential Diagnosis: [] [facility] Data External documents reviewed: N/A My EKG interpretation: Noted in chart if applicable My CT interpretation: N/A My X-ray interpretation: Noted in chart if applicable My Ultrasound interpretation: N/A Decision rules/scores evaluated: N/A Discussed with: N/A Treatment and Disposition ED Course: Patient is nontoxic-appearing and in no distress. She does have focal tenderness of the left wrist and ankle so we will obtain x-rays to further evaluate. Patient was given a dose of Tylenol and Motrin for comfort. X-rays are negative for acute fracture. I discussed these findings with the patient at bedside. We discussed the diagnosis of sprain. We discussed the treatment with a Velcro splint of the left wrist and Luiz wrap of the left ankle. We discussed rest, ice, compression, elevation as well as Tylenol and NSAID use. We will have her follow-up with her primary care physician in 1 week if not improved. Patient states understanding agreement with this plan was discharged stable condition. Shared decision making: As above Code status: N/A Assessment/Plan Left wrist sprain (S63.502A: Unspecified sprain of left wrist, initial encounter) Sprain of ankle, left (S93.402A: Sprain of unspecified ligament of left ankle, initial encounter) Orders: acetaminophen, 650 mg = 2 tab(s), Tab, Oral, Once PRN Pain, STAT, Start date 10/08/24 21:59:00 EDT, 10/08/24 21:59:00 EDT ibuprofen, 600 mg = 1 tab(s), Tab, Oral, Once PRN Pain, STAT, Start date 10/08/24 21:59:00 EDT, 10/08/24 21:59:00 EDT Luiz Wrap Thumb Spica Splint Application XR Ankle 3+ Views Left XR Wrist 3+ Views Left Medications Administered Given acetaminophen 325 mg Tab, 650 mg, Oral ibuprofen 600 mg Tab, 600 mg, Oral Disposition Plan Discharge Prescription List Prescriptions No active prescription medications Follow-up With When Contact Information DOREEN HA In 7 days 10/15/2024 EDT [address] [place] [address]- [facility] (1) Additional Instructions: Patient Education Wrist Sprain, Adult Ankle Sprain Problem List/Past Medical History Ongoing Adult BMI 40.0-44.9 kg/sq m Anxiety and depression Back pain with radiculopathy Bilateral arm pain Bipolar 1 disorder, mixed, moderate BMI 45.0-49.9, adult Class 3 severe obesity due to excess calories with body mass index (BMI) of 40.0 to 44.9 in adult Fatigue GDM (gestational diabetes mellitus) Marijuana use Mental disorder in , antepartum Morbid obesity Neuropathy Obesity complicating , second trimester PTSD (post-traumatic stress disorder) Shoulder pain, bilateral Smoker Supervision of high risk in second trimester Historical Amenorrhea Anxiety Bipolar Contraceptive management Depression None Smoker 27-JAN-2014 12:37:00<$> Procedure/Surgical History None. Medications Inpatient acetaminophen 325 mg Tab, 650 mg= 2 tab(s), Oral, Once, PRN ibuprofen 600 mg Ta (more content not included)... Normal [facility] Comment on above: Result Comment: Elec tronically Signed By: Eric Ramírez DO\.br\Date and Time Signed: 10/08/24 22:53 EDT ED Patient Summaryon 025 ED Patient Summary ED Patient Summary [address] [address] Patient Discharge Instructions Person Information Name: SCARLET DURAND Age: 24 Years Arrival Date: 10/08/2024 21:15:19 Discharge Diagnosis: Left wrist sprain; Sprain of ankle, left Primary Care Physician: DOREEN HA CNP Provider Information Primary Provider: Eric Ramírez DO Advanced Food Service Associate:None The exam and treatment you received in the Emergency Department were for an urgent problem and are not intended as complete care. It is important that you follow up with a doctor, nurse practitioner, or physician???s web assistant for ongoing care. If your symptoms become worse or you do not improve as expected and you are unable to reach your usual health care provider, you should return to the Emergency Department. We are available 24 hours a day. SCARLET DURAND has been given the following list of patient education materials, prescriptions and follow-up instructions: Follow-up Instructions: With: Address: When: [address] [place] [address] Business (1) In 7 days 10/15/2024 In the event that this physician does not participate in your insurance network, please consult with your insurance company to find a nearby participating provider. Patient Education Materials: Wrist Sprain, Adult; Ankle Sprain A MESSAGE TO ALL PATIENTS REGARDING OPIOIDS PRESCRIPTION OPIOIDS: WHAT YOU NEED TO KNOW Prescription opioids can be used to help relieve [id number] pain and are often prescribed following a surgery or injury, or for certain health conditions. These medications can be an important part of the treatment but also come with serious risks. It is important to work with your healthcare provider to make sure you are getting the safest, most effective care. WHAT ARE THE RISKS AND SIDE EFFECTS OF OPIOID USE? Prescription opioids carry serious risks of addiction and overdose, especially with prolonged use. An opioid overdose, often marked by slowed breathing, can cause sudden . The use of prescription opioids can have a number of side effects as well, even when taken as directed: ??? Tolerance???meaning you might need to take more of the medication for the same pain relief ??? Physical dependence???meaning you have symptoms of withdrawal when a medication is stopped ??? Increased sensitivity to pain ??? Constipation ??? Nausea, vomiting, and dry mouth ??? Sleepiness and dizziness ??? Confusion ??? Depression ??? Low levels of testosterone that can result in lower sex drive, energy, and strength ??? Itching and sweating RISKS ARE GREATER WITH: ??? History of drug misuse, substance use disorder, or overdose ??? Mental health conditions (such as depression or anxiety) ??? Sleep apnea ??? Older age (65 years and older) ??? Avoid alcohol while taking prescription opioids. Also, unless specifically advised by your health care provider, medications to avoid include: ??? Benzodiazepines (such as Xanax or Valium) ??? Muscle relaxants (such as Soma or Flexeril) ??? Hypnotics (such as Ambien or Lunesta) ??? Other prescription opioids KNOW YOUR OPTIONS Talk to your health care provider about ways to manage your pain that don???t involve prescription opioids. Some of these options may actually work better and have fewer risks and side effects. Options may include: ??? Pain relievers such as acetaminophen, ibuprofen, and naproxen ??? Some medication that are also used for depression or seizures ??? Physical therapy and exercise ??? Cognitive behavioral therapy, a psychological, goal-directed approach, in which patients learn how to modify physical, behavioral, and emotional triggers of pain and stress. IF YOU ARE PRESCRIBED OPIOIDS FOR PAIN: ??? Never take opioids in greater amounts or more often than prescribed. ??? Follow up with your primary health care provider. o Work together to create a plan on how to manage your pain. o Talk about ways to help manage your pain that don???t involve prescription opioids. o Talk about any and all concerns and side effects. ??? Help prevent misuse and abuse o Never sell or share prescription opioids. o Never use another person???s prescription opioids. ??? Store prescription opioids in a secure place and out of reach of others (this may include visitors, children, friends, and family). ??? Safely dispose of unused prescription opioids: Find your community drug take-back program or your pharmacy mail-back program, or flush them down the toilet, following guidance from the Food and Drug Administration (www.fda.gov/Drugs/Reso urcesForYou). ??? Visit www.cdc.gov/drugoverdos e to learn about the risks of opioids abuse and overdose. ??? If you believe you may be struggling with addiction, tell (more content not included)... Normal [facility] Quantiferon-TB Plus (Client Incubated)on 09-10-2024 Gamma interferon background IA Qn (Bld) 0.00 International_Unit/mL Invalid Interpretation Code [facility] Comment on above: Performed By: #### 1 [id number] #### [facility] [address] [place] [address] M. tuberculosis stim IFN-g by CD4+ CD8+ T-cells corrected for background Qn (Bld) 0.00 International_Unit/mL Invalid Interpretation Code [facility] Comment on above: Performed By: #### 1 [id number] #### [facility] [address] [place] [address] M. tuberculosis stim IFN-g by CD4+ T-cells corrected for background Qn (Bld) 0.00 International_Unit/mL Invalid Interpretation Code [facility] Comment on above: Performed By: #### 1 [id number] #### [facility] [address] [place] [id number] M. tuberculosis stim IFN-g Ql (Bld) [Interp] Negative Invalid Interpretation Code Negative [facility] Comment on above: Result Comment: No r esponse to M tuberculosis antigens detected. Infection with M tuberculosis is unlikely, but high risk individuals should be considered for additional testing (ATS/IDSA/CDC Clinical Practice Guidelines, 2017). The reference range is an Antigen minus Nil result of <0.35 IU/mL. The specimen received for QuantiFERON testing was incubated by the ordering institution. Specific procedures outlined in our Directory of Services and in the package insert for the QuantiFERON Gold (In Tube) test must be followed to enable for proper stimulation of cells for the production of interferon gamma. Chemiluminescence immunoassay methodology Performed at: [email or web address] [id number] PhD Hong Parker Performed By: #### 1 [id number] #### [facility] [address] [place] [id number] Mitogen stimulated gamma interferon corrected for background Qn (Bld) >10.00 Invalid Interpretation Code [facility] Comment on above: Performed By: #### 1 [id number] #### [facility] [address] [place] [address] Service comment (Unsp spec) [Interp] Comment Invalid Interpretation Code [facility] Comment on above: Result Comment: Roman tiFERON-TB Gold Plus is a qualitative indirect test for M tuberculosis infection (including disease) and is intended for use in conjunction with risk assessment, radiography, and other medical and diagnostic evaluations. The QuantiFERON-TB Gold Plus result is determined by subtracting the Nil value from either TB antigen (Ag) value. The Mitogen tube serves as a control for the test. Performed By: #### 1 [id number] #### [facility] [address] [place] [address] Hep Bs Abon 09-09-2024 HBV surface Ab Ql (S) Reactive Invalid Interpretation Code [facility] Comment on above: Result Comment: Non Reactive: Not immune to HBV infection. Equivocal: Unable to determine if anti-HBs is present at levels consistent with immunity. Reactive: Anti-HBs concentration detected at greater than 10 mIU/mL. Individual is considered to be immune to infection with HBV. Performed at: [email or web address] [id number] PhD Hong Parker Performed By: #### 2 [id number] #### [facility] [address] [place] [address] Measles/Mumps/Rubella Immuni tyon 09-09-2024 MeV IgG IA Qn (S) 183.0 A unit/mL Invalid Interpretation Code Immune >16.4 [facility] Comment on above: Result Comment: Nega tive <13.5 Equivocal 13.5 - 16.4 Positive >16.4 Presence of antibodies to Rubeola is presumptive evidence of immunity except when acute infection is suspected. Performed By: #### 3 [id number] #### [facility] [address] [place] [address] MuV IgG IA Qn (S) <9.0 Low Immune >10.9 [facility] Comment on above: Result Comment: Nega tive <9.0 Equivocal 9.0 - 10.9 Positive >10.9 A positive result generally indicates past exposure to Mumps virus or previous vaccination. Performed at: [facility] [id number] PhD Hong Parker Performed By: #### 3 [id number] #### [facility] [address] [place] [address] Rubella virus IgG Qn (S) 3.81 [IU]/mL Invalid Interpretation Code Immune >0.99 [facility] Comment on above: Result Comment: Non- immune <0.90 Equivocal 0.90 - 0.99 Immune >0.99 Performed By: #### 3 [id number] #### [facility] [address] [place] [address] Varic IgGon 09-09-2024 VZV IgG IA Ql (S) Reactive Invalid Interpretation Code Non Reactive [facility] Comment on above: Result Comment: Pl ease note reference interval change A Reactive result is considered evidence of immunity to VZV. Reactive indicates that VZV IgG was detected consistent with previous infection and/or vaccination. A Non Reactive result indicates that VZV IgG was not detected suggesting that immunity has not been acquired. Performed at: [facility] [address] [place] [id number] PhD Hong Parker Performed By: #### 1 [id number] #### [facility] [address] [place] [id number] XR Spine Lumbar Complete [employer] pankaj Deniseion 07-13-2024 XR Spine Lumbar Complete Including Bendi Exam Date/Time: 07/13/2024 08:57 EST Reason for Exam: M54.6 M54.50 M54.31 M54.32 Report IMPRESSION: NEGATIVE STUDY. CLINICAL HISTORY: M54.6 M54.50 M54.31 M54.32. Low back pain and mid back pain. COMMENT: Seven views, including upright lateral views. There are 5 lumbar like vertebra. The lumbosacral vertebra are normal in appearance. No interspace narrowing is noted. The vertebral bodies are maintained in height. The facet joints are unremarkable. No fracture nor subluxation is noted. Motion of the lumbar spine on the flexion and extension lateral views is unremarkable. Ordering Provider: , FINAL REPORT Dictated: 07/13/2024 11:42 am Yuval Rush M.D. Signed (Electronic Signature): 07/13/2024 11:42 am Signed by: Yuval Rush M.D. Transcribed by: SURINDER Technologist: RICKY Technical Comments Radiation Dose: Ka,r in mGy = na DAP = na Normal [facility] XR Spine Thoracic 3 Viewson 07-13-2024 XR Spine Thoracic 3 Views Exam Date/Time: 07/13/2024 08:57 EST Reason for Exam: M54.6 M54.50 M54.31 M54.32 Report IMPRESSION: ELEVEN THORACIC LIKE VERTEBRA. NO SIGNIFICANT BONY ABNORMALITY. CLINICAL HISTORY: M54.6 M54.50 M54.31 M54.32. Low back pain and mid back pain. COMMENT: 3 views. There are 11 sets of formed ribs and 11 thoracic like vertebra. The next vertebra is lumbarized. There is minimal marginal hypertrophic spurring involving lower thoracic vertebral bodies. The thoracic spine is otherwise normal in appearance. The vertebral bodies are maintained in height. The pedicles are intact. No fracture is evident. Ordering Provider: , FINAL REPORT Dictated: 07/13/2024 11:21 am Yuval Rush M.D. Signed (Electronic Signature): 07/13/2024 11:21 am Signed by: Yuval Rush M.D. Transcribed by: SURINDER Technologist: RICKY Technical Comments Radiation Dose: Ka,r in mGy = na DAP = na Normal [facility] Reference Laboratory Testing Ordered By: Marybeth Savage on 07-08-2024 Other: -negative cough, sneeze, strain-positive occipital headaches [facility] Work Phone: T3 Totalon 06-01-2024 T3 [Mass/Vol] 103 ng/dL Invalid Interpretation Code [id number] [facility] Comment on above: Result Comment: Perf ormed at: [facility] [address] [id number] PhD Hong Parker Performed By: #### 1 [id number] #### [facility] [address] [place] [address] XR Spine Cervical 4 or 5 Vie wson 06-01-2024 XR Spine Cervical 4 or 5 Views Exam Date/Time: 05/31/2024 12:36 EST Reason for Exam: M50.30Degeneration of intervertebral disc of cervical region Report IMPRESSION: No acute osseous findings. EXAMINATION/TECHNIQUE: XR Spine Cervical 4 or 5 Views HISTORY: Ongoing neck pain. COMPARISON: 01/14/2023. RESULT: Counting reference of craniocervical junction. Straightening of the cervical lordosis. No radiographic evidence for acute fracture. Vertebral body heights appear maintained. Disc spaces grossly maintained. No distinct high-grade bony foraminal narrowing within limits of positioning. Paraspinal soft tissues grossly unremarkable. Lung apices grossly clear. No other significant abnormality. Ordering Provider: , FINAL REPORT Dictated: 06/01/2024 3:43 pm Edmond Newby MD Signed (Electronic Signature): 06/01/2024 3:43 pm Signed by: Edmond Newby MD Transcribed by: SURINDER Technologist: JAMES Technical Comments Radiation Dose: Ka,r in mGy = . DAP = . Normal [facility] BNPon 05-31-2024 Int Ctr BNP Pass Normal [facility] Comment on above: Performed By: #### 1 [id number] #### Daily [facility] [address] [place] [address] Natriuretic peptide B (Bld) [Mass/Vol] 8 pg/mL Normal 5-80 [facility] Comment on above: Performed By: #### 1 [id number] #### Killian [facility] [address] [place] [address] CHEMISTRYOrdered By: SYSTEM SYSTEM on 05-31-2024 Albumin [Mass/Vol] 4.1 g/dL Normal 3.3 - 5.0 gm/dL Rem[facility] Albumin/Globulin [Mass ratio] 1.2 {ratio} Normal 1.1 - 2.2 [facility] ALP [Catalytic activity/Vol] 63 [iU]/d Normal 21 - 98 Int._Unit/L [facility] Chem ALT No additional P-5'-P [Catalytic activity/Vol] 10 [iU]/d Normal 6 - 46 Int._Unit/L [facility] Anion gap [Moles/Vol] 9 mmol/L Normal 6 - 16 mEq/L [facility] AST [Catalytic activity/Vol] 10 [iU]/d Normal 5 - 43 Int._Unit/L [facility] Bilirubin [Mass/Vol] 0.4 mg/dL Normal 0.0 - 1 .1 mg/dL [facility] Calcium [Mass/Vol] 9.2 mg/dL Normal 8.9 - 11. 1 mg/dL [facility] Chloride [Moles/Vol] 102 mmol/L Normal 101 - 1 11 mmol/L [facility] CO2 [Moles/Vol] 31 mmol/L Normal 21 - 31 mmol/L [facility] Creatinine [Mass/Vol] 0.7 mg/dL Normal 0.5 - 1.3 mg/dL [facility] eGFR 122 mL/min/1.73 m2 Normal >=59mL/mi n/ 1.73 m2 [facility] Globulin (S) [Mass/Vol] 3.4 g/dL Normal 1.4 - 4.0 gm/dL [facility] Glucose [Mass/Vol] 88 mg/dL Normal 55 - 199 mg/dL [facility] Potassium [Moles/Vol] 4.3 mmol/L Normal 3.5 - 5.3 mmol/L [facility] Protein [Mass/Vol] 7.5 g/dL Normal 6.0 - 7.8 gm/dL [facility] Sodium [Moles/Vol] 138 mmol/L Normal 135 - 145 mmol/L [facility] T4 [Mass/Vol] 6.6 ug/dL Normal 4.6 - 9.1 mcg/dL [facility] Troponin HS pg/mL Low 10.10 - 27.10 pg/mL [facility] Comment on above: Interpretive Data: T he 95% CI (Confidence Interval) PPV (Positive Predictive Value) for myocardial infarction in females is 38 pg/mL, in males 51 pg/mL. The results should be used in conjunction with clinical conditions of myocardial infarction. (Access High Sensitivity Troponin I Instructions For Use, Judy Avoca, February 2018) TSH Qn 1.13 m[IU]/L Normal 0.34 - 5.60 mcIU/mL [facility] Urea nitrogen [Mass/Vol] 10 mg/dL Normal 5 - 21 mg/dL [facility] Urea nitrogen/Creatinine [Mass ratio] 14 mg/mg Normal 10 - 20 [facility] CHEMISTRYOrdered By: Lou Cuellar on 05-31-2024 Natriuretic peptide B (Bld) [Mass/Vol] 8 pg/mL Normal 5 - 80 [facility] Albumin [Mass/Vol] 4.1 g/dL Normal 3.3-5.0 [facility] Comment on above: Performed By: #### 2 [id number] #### [facility] [address] [place] [address] Albumin/Globulin (S) [Mass conc ratio] 1.2 Normal 1.1-2.2 [facility] Comment on above: Performed By: #### 2 [id number] #### [facility] [address] [place] [address] ALP [Catalytic activity/Vol] 63 Int._Unit/L Normal 21-98 [facility] Comment on above: Performed By: #### 2 [id number] #### [facility] [address] [place] [address] ALT No additional P-5'-P [Catalytic activity/Vol] 10 Int._Unit/L Normal 6-46 [facility] Comment on above: Performed By: #### 2 [id number] #### [facility] [address] [place] [address] Anion gap [Moles/Vol] 9 mmol/L Normal 6-16 [facility] Comment on above: Performed By: #### 2 [id number] #### [facility] [address] [place] [address] AST [Catalytic activity/Vol] 10 Int._Unit/L Normal 5-43 [facility] Comment on above: Performed By: #### 2 [id number] #### [facility] [address] [place] [address] Bilirubin [Mass/Vol] 0.4 mg/dL Normal 0.0-1.1 [facility] Comment on above: Performed By: #### 2 [id number] #### [facility] [address] [place] [address] Calcium [Mass/Vol] 9.2 mg/dL Normal 8.9-11.1 [facility] Comment on above: Performed By: #### 2 [id number] #### [facility] [address] [place] [address] Chloride [Moles/Vol] 102 mmol/L Normal 101-111 [facility] Comment on above: Performed By: #### 2 [id number] #### [facility] [address] [place] [address] CO2 [Moles/Vol] 31 mmol/L Normal 21-31 [facility] Comment on above: Performed By: #### 2 [id number] #### [facility] [address] [place] [address] Creatinine [Mass/Vol] 0.7 mg/dL Normal 0.5-1.3 [facility] Comment on above: Performed By: #### 2 [id number] #### [facility] [address] [place] [address] Globulin (S) [Mass/Vol] 3.4 g/dL Normal 1.4-4.0 [facility] Comment on above: Performed By: #### 2 [id number] #### [facility] [address] [place] [address] Glucose [Mass/Vol] 88 mg/dL Normal 55-199 [facility] Comment on above: Performed By: #### 2 [id number] #### [facility] [address] [place] [address] Potassium [Moles/Vol] 4.3 mmol/L Normal 3.5-5.3 [facility] Comment on above: Performed By: #### 2 [id number] #### [facility] [address] [place] [address] Protein [Mass/Vol] 7.5 g/dL Normal 6.0-7.8 [facility] Comment on above: Performed By: #### 2 [id number] #### [facility] [address] [place] [address] Sodium [Moles/Vol] 138 mmol/L Normal 135-145 [facility] Comment on above: Performed By: #### 2 [id number] #### [facility] [address] [place] [address] Urea nitrogen [Mass/Vol] 10 mg/dL Normal 5-21 [facility] Comment on above: Performed By: #### 2 [id number] #### [facility] [address] [place] [address] Urea nitrogen/Creatinine [Mass ratio] 14 No Units Normal 10-20 [facility] Comment on above: Performed By: #### 2 [id number] #### [facility] [address] [place] [address] T4 & TSHon 05-31-2024 T4 [Mass/Vol] 6.6 microgram/dL Normal 4.6-9.[address] [facility] Comment on above: Performed By: #### 1 [id number] #### [facility] [address] [place] [address] TSH Qn 1.13 m[IU]/L Normal 0.34-5.60 [facility] Comment on above: Performed By: #### 1 [id number] #### [facility] [address] [place] [address] Troponinon 05-31-2024 Troponin HS <2.30 Low 10.10-27.10 [facility] Comment on above: Result Comment: The 95% CI (Confidence Interval) PPV (Positive Predictive Value) for myocardial infarction in females is 38 pg/mL, in males 51 pg/mL. The results should be used in conjunction with clinical conditions of myocardial infarction. (Access High Sensitivity Troponin I Instructions For Use, Judy Rayspan, February 2018) Performed By: #### 2 [id number] #### [facility] [address] [place] [address] eGFRon 05-31-2024 eGFR 122 mL/min/1.73 m2 Normal >=59 [facility] Comment on above: Performed By: #### 1 [id number] #### [facility] [address] [place] [address] B hCG Qualon 05-30-2024 Beta HCG ( test) Ql Negative Normal [facility] Comment on above: Performed By: #### 2 [id number] #### [facility] [address] [place] [address] BMPon 05-30-2024 Anion gap [Moles/Vol] 11 mmol/L Normal 6-16 [facility] Comment on above: Performed By: #### 2 [id number] #### [facility] [address] [place] [address] Calcium [Mass/Vol] 8.7 mg/dL Low 8.9-11.1 [facility] Comment on above: Performed By: #### 2 [id number] #### [facility] [address] [place] [address] Chloride [Moles/Vol] 104 mmol/L Normal 101-111 [facility] Comment on above: Performed By: #### 2 [id number] #### [facility] [address] [place] [address] CO2 [Moles/Vol] 26 mmol/L Normal 21-31 [facility] Comment on above: Performed By: #### 2 [id number] #### [facility] [address] [place] [address] Creatinine [Mass/Vol] 0.7 mg/dL Normal 0.5-1.3 [facility] Comment on above: Performed By: #### 2 [id number] #### [facility] [address] [place] [address] Glucose [Mass/Vol] 115 mg/dL Normal 55-199 [facility] Comment on above: Performed By: #### 2 [id number] #### [facility] [address] [place] [address] Potassium [Moles/Vol] 3.8 mmol/L Normal 3.5-5.3 [facility] Comment on above: Performed By: #### 2 [id number] #### [facility] [address] [place] [address] Sodium [Moles/Vol] 137 mmol/L Normal 135-145 [facility] Comment on above: Performed By: #### 2 [id number] #### [facility] [address] [place] [address] Urea nitrogen [Mass/Vol] 12 mg/dL Normal 5-21 [facility] Comment on above: Performed By: #### 2 [id number] #### [facility] [address] [place] [address] Urea nitrogen/Creatinine [Mass ratio] 17 No Units Normal 10-20 [facility] Comment on above: Performed By: #### 2 [id number] #### [facility] [address] [place] [address] CBC w/ Auto Diffon 4 Basophils/100 WBC (Bld) 0.5 % Normal 0.0-2.0 [facility] Comment on above: Performed By: #### 2 [id number] #### [facility] [address] [place] [address] Basophils/Leukocytes Auto (Bld) [Pure # fraction] 0.1 E9/L Normal 0.0-0.2 [facility] Comment on above: Performed By: #### 2 [id number] #### [facility] [address] [place] [address] Eosinophils (Bld) [#/Vol] 0.1 E9/L Normal 0.0-0.5 [facility] Comment on above: Performed By: #### 2 [id number] #### [facility] [address] [place] [address] Eosinophils/100 WBC (Bld) 0.5 % Normal 0.0-8.0 [facility] Comment on above: Performed By: #### 2 [id number] #### [facility] [address] [place] [address] Erythrocyte distribution width (RBC) [Ratio] 16.3 % High 10.9-14.2 [facility] Comment on above: Performed By: #### 2 [id number] #### [facility] [address] [place] [address] Hematocrit (Bld) [Volume fraction] 36.0 % Normal 34.0-46.0 [facility] Comment on above: Performed By: #### 2 [id number] #### [facility] [address] [place] [address] Hemoglobin (Bld) [Mass/Vol] 12.0 g/dL Normal 12.0-16.0 [facility] Comment on above: Performed By: #### 2 [id number] #### [facility] [address] [place] [address] Lymphocytes (Bld) [#/Vol] 2.5 E9/L Normal 1.0-4.0 [facility] Comment on above: Performed By: #### 2 [id number] #### [facility] [address] [place] [address] Lymphocytes/100 WBC (Bld) 20.1 % Normal 14.0-50.0 [facility] Comment on above: Performed By: #### 2 [id number] #### [facility] [address] [place] [address] MCH (RBC) [Entitic mass] 25.4 pg Low 27.0-34.0 [facility] Comment on above: Performed By: #### 2 [id number] #### [facility] [address] [place] [address] MCHC (RBC) [Mass/Vol] 33.5 g/dL Normal 31.4-36.0 [facility] Comment on above: Performed By: #### 2 [id number] #### [facility] [address] [place] [address] MCV (RBC) [Entitic vol] 75.8 fL Low 80.0-100.0 [facility] Comment on above: Performed By: #### 2 [id number] #### [facility] [address] [place] [address] Monocytes (Bld) [#/Vol] 0.6 E9/L Normal 0.2-1.0 [facility] Comment on above: Performed By: #### 2 [id number] #### [facility] [address] [place] [address] Neutrophils (Bld) [#/Vol] 9.2 E9/L High 2.0-7.5 [facility] Comment on above: Performed By: #### 2 [id number] #### [facility] [address] [place] [address] Neutrophils/100 WBC (Bld) 73.9 % Normal 36.0-75.0 [facility] Comment on above: Performed By: #### 2 [id number] #### [facility] [address] [place] [address] Platelet 424.0 E9/L Normal 150.0-500.0 [facility] Comment on above: Performed By: #### 2 [id number] #### [facility] [address] [place] [address] Platelet mean volume (Bld) [Entitic vol] 7.8 fL Normal 6.4-10.8 [facility] Comment on above: Performed By: #### 2 [id number] #### [facility] [address] [place] [address] RBC (Bld) [#/Vol] 4.8 E12/L Normal 4.3-5.9 [facility] Comment on above: Performed By: #### 2 [id number] #### [facility] [address] [place] [address] WBC corrected for nucl RBC Auto (Bld) [#/Vol] 12.4 E9/L High 4.0-11.0 [facility] Comment on above: Performed By: #### 2 [id number] #### [facility] [address] [place] [address] CHEMISTRYOrdered By: SYSTEM SYSTEM on 05-30-2024 Anion gap [Moles/Vol] 11 mmol/L Normal 6 - 16 mEq/L [facility] Calcium [Mass/Vol] 8.7 mg/dL Low 8.9 - 11. 1 mg/dL [facility] Chloride [Moles/Vol] 104 mmol/L Normal 101 - 1 11 mmol/L [facility] CO2 [Moles/Vol] 26 mmol/L Normal 21 - 31 mmol/L [facility] Creatinine [Mass/Vol] 0.7 mg/dL Normal 0.5 - 1.3 mg/dL [facility] eGFR 122 mL/min/1.73 m2 Normal >=59mL/mi n/ 1.73 m2 [facility] Glucose [Mass/Vol] 115 mg/dL Normal 55 - 199 mg/dL [facility] Potassium [Moles/Vol] 3.8 mmol/L Normal 3.5 - 5.3 mmol/L [facility] Sodium [Moles/Vol] 137 mmol/L Normal 135 - 145 mmol/L [facility] Troponin HS pg/mL Low 10.10 - 27.10 pg/mL [facility] Comment on above: Interpretive Data: T he 95% CI (Confidence Interval) PPV (Positive Predictive Value) for myocardial infarction in females is 38 pg/mL, in males 51 pg/mL. The results should be used in conjunction with clinical conditions of myocardial infarction. (Access High Sensitivity Troponin I Instructions For Use, Judy Avoca, February 2018) Urea nitrogen [Mass/Vol] 12 mg/dL Normal 5 - 21 mg/dL [facility] Urea nitrogen/Creatinine [Mass ratio] 17 mg/mg Normal 10 - 20 [facility] COAGULATIONOrdered By: Aby Kearns on 05-30-2024 aPTT Coag (PPP) [Time] 35.3 s Normal 25.1 - 36.5 second(s) [facility] Comment on above: Interpretive Data: Kiko sousa 15 days - 4 weeks 1 - 5 months 6 - 11 months 1 - 5 years 6 - 10 years 11 - 17 years PTT Mean: 35.4 (27.6-45.6) Mean: 33.5 (24.8-40.7) Mean: 32.4 (25.1-40.7) Mean: 31.6 (24.0-39.2) Mean: 31.6 (26.9-38.7) Mean: 31.0 (24.6-38.4) Pediatric Reference ranges were obtained from a study by Jorge Lugo et al. prepared from 1437 samples obtained at 7 different centers using the same coagulation reagent and instrumentation as [facility]. Currently there are no coagulation studies available worldwide for children to 14 days, and no normal ranges. Heparin therapeutic range (represented by Anti-Factor Xa activity of 0.2 - 0.4 U/mL) corresponds to PTT of 56.6 - 109.0 sec. INR Coag (PPP) [Relative time] 1.08 {INR} Invalid Interpretation Code [facility] Comment on above: Interpretive Data: I NR results are specifically intended to assess patients stabilized on long-term Anticoagulation therapy suggested INR s Less Intensive Anticoagulation 2.0 3.0 Conventional Range 3.0 4.5 PT Coag (PPP) [Time] 12.1 s Normal 9.4 - 1 2.5 second(s) [facility] Comment on above: Interpretive Data: 1 5 days - 4 weeks 1 - 5 months 6 -11 months 1-5 years 6-10 years 11 -17 years Mean: 11.2 (9.5-12.6) Mean: 11.0 (9.7-12.8) Mean: 11.0 (9.8-13.0) Mean: 11.3 (9.9-13.4) Mean: 11.7 (10.0-14.6) Mean: 11.8 (10.0 - 14.1) Pediatric Reference ranges were obtained from a study by Jorge Lugo et al. prepared from 1437 samples obtained at 7 different centers using the same coagulation reagent and instrumentation as [facility]. Currently there are no coagulation studies available worldwide for children to 14 days, and no normal ranges. ED Clinical Summaryon 2023 ED Clinical Summary ED Clinical Summary [address] [address] ED Clinical Summary Person Information Name: SCARLET DURAND [facility] Age: 24 Years : 2000 Sex: Female Language: Tuvaluan PCP: DOREEN HA CNP Marital Status: Phone: [phone] Visit Id: Visit Reason: Arm pain-swelling; Chest pain; CHEST PRESSURE, RADIATING DOWN RIGHT ARM INTO FINGERS Speciality: Acuity: 2 Enc Type: Emergency Med Service: Emergency Arrival: 05/30/2024 14:18:08 Discharge: 05/30/2024 15:17:41 LOS: 000 00:59 Checkin: 05/30/2024 14:18:08 Checkout: 05/30/2024 15:17:41 Dispo Type: Home (Routine DC) EVENTS: Event Name Event Status Request Date/Time Start Date/Time Complete Date/Time Arrive Complete 05/30/2024 14:18:08 05/30/2024 14:18:08 05/30/2024 14:18:08 Document Home Meds Request 05/30/2024 14:18:08 Triage Complete 05/30/2024 14:18:08 05/30/2024 14:27:41 05/30/2024 14:27:41 Registration Complete 05/30/2024 14:20:50 05/30/2024 14:20:50 05/30/2024 14:20:50 Reg Complete Request 05/30/2024 14:20:50 Reg Bed Request Complete 05/30/2024 14:20:50 05/30/2024 14:20:50 05/30/2024 14:20:50 Bed Assign Complete 05/30/2024 14:20:58 05/30/2024 14:20:58 05/30/2024 14:20:58 Dr Exam Complete 05/30/2024 14:20:58 05/30/2024 14:22:13 05/30/2024 14:22:13 RN Exam Complete 05/30/2024 14:20:58 05/30/2024 14:29:52 05/30/2024 14:29:52 Registration Request 05/30/2024 14:22:13 EKG Complete 05/30/2024 14:22:20 05/30/2024 14:25:14 Pending Labs Request 05/30/2024 14:23:09 Lab Complete 05/30/2024 14:23:09 05/30/2024 14:58:54 Patient Care Request 05/30/2024 14:23:09 RT Request 05/30/2024 14:23:09 X-Ray Complete 05/30/2024 14:23:09 05/30/2024 14:35:35 05/30/2024 14:55:04 Dr Exam Complete 05/30/2024 14:24:06 05/30/2024 14:24:06 05/30/2024 14:24:06 Pending Labs Complete 05/30/2024 14:35:53 05/30/2024 14:35:53 05/30/2024 14:58:54 Lab Complete 05/30/2024 14:35:53 05/30/2024 14:35:53 05/30/2024 14:58:54 Wet Read Request 05/30/2024 14:55:04 Discharge Complete 05/30/2024 15:07:09 05/30/2024 15:17:51 05/30/2024 15:17:51 Transfer Complete 05/30/2024 15:17:51 05/30/2024 15:17:51 05/30/2024 15:17:51 ADDRESS: [address] [place] [address] [address] [facility] [phone] PHYS DOC NOTES: MEDICAL INFORMATION: Prescriptions Given: New Medications [facility], [address] [place], [place] [id number], [phone] cyclobenzaprine (cyclobenzaprine 10 mg Tab) 1 Tablets By Mouth 3 times a day as needed for spasm. Refills: 0. Medications to Continue with No Changes Other Medications ibuprofen (ibuprofen 600 mg Tab) 1 Tablets By Mouth every 6 hours. Refills: 0. lidocaine topical (Lidocaine 2% Viscous) 5 Milliliter Topical four times a day (before meals and at bedtime). Refills: 0. multivitamin, ( Multivitamins with Folic Acid 1.25 mg oral tablet) naproxen (Naprosyn 500 mg Tab) 1 Tablets By Mouth 2 times a day. Refills: 0. naproxen (Naprosyn 500 mg Tab) 1 Tablets By Mouth 2 times a day as needed for pain. Refills: 0. naproxen (naproxen 500 mg Tab) 1 Tablets By Mouth 2 times a day. Take one tab by mouth two times a day. Refills: 0. ondansetron (Zofran ODT 4 mg Tab-Dis) 1 Tablets By Mouth 3 times a day. Refills: 0. ondansetron (Zofran ODT 4 mg Tab-Dis) 1 Tablets By Mouth every 8 hours as needed Nausea/Vomiting. Refills: 0. ondansetron (Zofran ODT 4 mg Tab-Dis) 1 Tablets By Mouth every 8 hours. Refills: 0. sulfamethoxazole-trimet hoprim (Bactrim D.S. 800 mg-160 mg Tab) 1 Tablets By Mouth 2 times a day. Refills: 0. PATIENT EDUCATION INFORMATION: Instructions: Nonspecific Chest Pain, Adult, [id number] Follow up: With: Address: When: [address] [address] [facility] ([facility] In 3 days 06/02/2024 Comments: Call Dr for diagnosis based follow up DIAGNOSIS: Nonspecific chest pain Normal [facility] ED Note-Physicianon 05-30-20 ED Note-Physician ED Note-Physician Basic Information Time Seen: Greyson MONDRAGON, Miguelito Matt 05/30/2024 14:22 Chief Complaint c/o intermittent chest pain with radiation down right arm for 3 days. States hx of irregular heart beat. History of Present Illness A 24-year-old female reports emerged part with complaints of chest pain radiation down into her right arm. Reports been on for 3 days now. Reports only cardiac history is irregular heartbeat at times. She has a cardiac history for herself. Denies any nausea or vomiting. 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 She denies any fevers or chills. Denies any cough or congestion. Review of Systems No other aggravating or relieving factors no other associated symptoms no other prior treatments or complaints. Family: Reviewed and noncontributory Social: lives at home Review of systems negative unless otherwise specified in the HPI. Physical Exam Vitals & Measurements T: 36.9 ???C(Oral) HR: 94(Peripheral) RR: 16 BP: 126/91 SpO2: 98% HT: 162 cm WT: 127 kg BMI: 48.39 General: The patient appears well and in no apparent distress. Patient is resting comfortably on bed. Afebrile Skin: Warm, dry, no pallor noted. Head: Normocephalic, atraumatic Neck: No JVD Eye: PERRLA, EOMI ENT: Moist mucus membranes Cardiovascular: Regular rate. normal peripheral perfusion. Radial pulses +2 bilaterally Respiratory: No respiratory distress. no accessory muscle use. no obvious audible wheezing Chest Wall: no deformity. Mild midsternal chest tenderness on palpation. Musculoskeletal: normal ROM, no deformity, no swelling GI: No obvious distention Neurological: A&O. moves all extremities equal strength and symmetry Psychiatric: Cooperative and appropriate Medical Decision Making MEDICAL DECISION MAKING Number and Complexity of Problems Differential Diagnosis: [] [facility] Data External documents reviewed: [] My EKG interpretation: Reviewed My CT interpretation: [] My X-ray interpretation: Reviewed My Ultrasound interpretation: [] Decision rules/scores evaluated: Heart Score for Major Cardiac Event History: Example factors for history - pattern of chest pain, onset, duration, relation with exercise, stress or cold, localization, concominant symptoms. reaction to sublingual nitrates, [] Highly suspicious +2 [] Moderately suspicious +1 [x] Slightly suspicious 0 EKG: [] Significant ST-Depression +2 [] Non specific repolarization disturbance +1 [x] Normal 0 Age: [] >= 65 +2 [] 45-65 + 1 [x] <45 0 Risk Factors: (HLD, HTN, DM, Cigarette Smoking, Pos Family Hx, Obesity) [] >3 risk factors or hx of atheroslerotic disease + 2 [x] 1-2 risk factors + 1 [] No risk factors known 0 Troponin: [] >= 3X normal + 2 [] 1-3X normal + 1 [x] <= Normal 0 [x] 0-3 Points 0.9 - 1.7% risk of major adverse cardiac event in 6 weeks [] 4-6 Points 12-16.6% risk of major adverse cardiac event in 6 weeks [] 7-10 Points 50-65% risk of major adverse cardiac event in 6 weeks [] 0-3 Points with 2 sets of negative cardiac markers <1% risk of major adverse cardiac event in 30 days. Discussed with: [] Treatment and Disposition ED Course: 24-year-old female reports to the emergency department with complaints of chest pain. Reports some radiation down her right arm as well. Reports been going on for the last 3 days. Reports that she has been more stressed recently due to history of raising 7 children. She states no cardiac history. Reports some palpitations in the past. Exam the patient rather benign. She does have mild chest wall tenderness on palpation. Due to concerns of, did do a cardiac workup to the patient. EKG reviewed noted. Troponin is negative. Patient had a heart score of 1. Does not appear to be cardiac cause at all. Discussed likely stress/anxiety causing her symptoms. Possible chest pain be muscular, patient started on muscle relaxers for relief. Discussed return precautions. Follow-up with your primary care provider in 3 to 5 days. If symptoms worsen, do not improve, or new symptoms arise please report back to emergency department for further evaluation. The patient was understanding and agreeable to plan moving forward. Shared decision making: [] Code status: [] Assessment/Plan Nonspecific chest pain (R07.9: Chest pain, unspecified) Orders: cyclobenzaprine, 10 mg = 1 tab(s), Oral, TID, PRN for spasm, # 30 tab(s), Refills(s) 0, Pharmacy: [facility], 162, cm, 05/30/24 14:27:00 EST, Height/Length Dosing, 127, kg, 05/30/24 14:27:00 EST, Weight Dosing Basic Metabolic Panel Beta hCG Qual CBC w/ Auto Diff ED Cardiac Monitoring eGFR Oxygen Saturation Oxygen Therapy PT & PTT Saline Lock Insert Troponin 0 Hr. UA with Cult Rflx XR Chest Single View Disposition Plan Patient (more content not included)... Normal [facility] Comment on above: Result Comment: Elec tronically Signed By: Miguelito Rubi PA-C\.br\Date and Time Signed: 05/30/24 15:07 EST\.br\Electronically Co-Signed By: Ashley Faustin M.D.\.br\Date and Time Co-Signed: 05/30/24 15:09 EST ED Patient Summaryon 024 ED Patient Summary ED Patient Summary [place] [id number] Patient Discharge Instructions Person Information Name: SCARLET DURAND Age: 24 Years Arrival Date: 05/30/2024 14:18:08 Discharge Diagnosis: Nonspecific chest pain Primary Care Physician: DOREEN HA CNP Provider Information Primary Provider: Ashley Faustin M.D. Advanced Food Service Associate:None The exam and treatment you received in the Emergency Department were for an urgent problem and are not intended as complete care. It is important that you follow up with a doctor, nurse practitioner, or physician???s web assistant for ongoing care. If your symptoms become worse or you do not improve as expected and you are unable to reach your usual health care provider, you should return to the Emergency Department. We are available 24 hours a day. SCARLET DURAND has been given the following list of patient education materials, prescriptions and follow-up instructions: Follow-up Instructions: With: Address: When: [address] [place] [address] Business (1) In 3 days 06/02/2024 Comments: Call Dr for diagnosis based follow up In the event that this physician does not participate in your insurance network, please consult with your insurance company to find a nearby participating provider. Patient Education Materials: Nonspecific Chest Pain, Adult, Gurn-qq-Arco A MESSAGE TO ALL PATIENTS REGARDING OPIOIDS PRESCRIPTION OPIOIDS: WHAT YOU NEED TO KNOW Prescription opioids can be used to help relieve czljbmio-bq-jiwglo pain and are often prescribed following a surgery or injury, or for certain health conditions. These medications can be an important part of the treatment but also come with serious risks. It is important to work with your healthcare provider to make sure you are getting the safest, most effective care. WHAT ARE THE RISKS AND SIDE EFFECTS OF OPIOID USE? Prescription opioids carry serious risks of addiction and overdose, especially with prolonged use. An opioid overdose, often marked by slowed breathing, can cause sudden . The use of prescription opioids can have a number of side effects as well, even when taken as directed: ??? Tolerance???meaning you might need to take more of the medication for the same pain relief ??? Physical dependence???meaning you have symptoms of withdrawal when a medication is stopped ??? Increased sensitivity to pain ??? Constipation ??? Nausea, vomiting, and dry mouth ??? Sleepiness and dizziness ??? Confusion ??? Depression ??? Low levels of testosterone that can result in lower sex drive, energy, and strength ??? Itching and sweating RISKS ARE GREATER WITH: ??? History of drug misuse, substance use disorder, or overdose ??? Mental health conditions (such as depression or anxiety) ??? Sleep apnea ??? Older age (65 years and older) ??? Avoid alcohol while taking prescription opioids. Also, unless specifically advised by your health care provider, medications to avoid include: ??? Benzodiazepines (such as Xanax or Valium) ??? Muscle relaxants (such as Soma or Flexeril) ??? Hypnotics (such as Ambien or Lunesta) ??? Other prescription opioids KNOW YOUR OPTIONS Talk to your health care provider about ways to manage your pain that don???t involve prescription opioids. Some of these options may actually work better and have fewer risks and side effects. Options may include: ??? Pain relievers such as acetaminophen, ibuprofen, and naproxen ??? Some medication that are also used for depression or seizures ??? Physical therapy and exercise ??? Cognitive behavioral therapy, a psychological, goal-directed approach, in which patients learn how to modify physical, behavioral, and emotional triggers of pain and stress. IF YOU ARE PRESCRIBED OPIOIDS FOR PAIN: ??? Never take opioids in greater amounts or more often than prescribed. ??? Follow up with your primary health care provider. o Work together to create a plan on how to manage your pain. o Talk about ways to help manage your pain that don???t involve prescription opioids. o Talk about any and all concerns and side effects. ??? Help prevent misuse and abuse o Never sell or share prescription opioids. o Never use another person???s prescription opioids. ??? Store prescription opioids in a secure place and out of reach of others (this may include visitors, children, friends, and family). ??? Safely dispose of unused prescription opioids: Find your community drug take-back program or your pharmacy mail-back program, or flush them down the toilet, following guidance from the Food and Drug Administration (www.fda.gov/Drugs/Reso urcesForYou). ??? Visit www.cdc.gov/drugoverdos e to learn about the risks of opioids abuse and overdose. ??? If you juana (more content not included)... Normal [facility] HEMATOLOGYOrdered By: SYSTEM SYSTEM on 05-30-2024 Basophils/100 WBC (Bld) 0.5 % Normal 0.0 - 2.0 % Remisol Heme Basophils/Leukocytes Auto (Bld) [Pure # fraction] 0.1 E9/L Normal 0.0 - 0.2 E9/L Remisol Heme Eosinophils (Bld) [#/Vol] 0.1 E9/L Normal 0.0 - 0.5 E9/L Remisol Heme Eosinophils/100 WBC (Bld) 0.5 % Normal 0.0 - 8.0 % Remisol Heme Erythrocyte distribution width (RBC) [Ratio] 16.3 % High 10.9 - 14.2 % Remisol Heme Hematocrit (Bld) [Volume fraction] 36.0 % Normal 34.0 - 46.0 % Remisol Heme Hemoglobin (Bld) [Mass/Vol] 12.0 g/dL Normal 12.0 - 16.0 gm/dL Remisol Heme Lymphocytes (Bld) [#/Vol] 2.5 E9/L Normal 1.0 - 4.0 E9/L Remisol Heme Lymphocytes/100 WBC (Bld) 20.1 % Normal 14.0 - 50.0 % Remisol Heme MCH (RBC) [Entitic mass] 25.4 pg Low 27.0 - 34.0 pg Remisol Heme MCHC (RBC) [Mass/Vol] 33.5 g/dL Normal 31.4 - 36.0 gm/dL Remisol Heme MCV (RBC) [Entitic vol] 75.8 fL Low 80.0 - 100.0 fL Remisol Heme Monocytes (Bld) [#/Vol] 0.6 E9/L Normal 0.2 - 1.0 E9/L Remisol Heme Monocytes/100 WBC (Bld) 5.0 % Normal 4.0 - 14.0 % Remisol Heme Neutrophils (Bld) [#/Vol] 9.2 E9/L High 2.0 - 7.5 E9/L Remisol Heme Neutrophils/100 WBC (Bld) 73.9 % Normal 36.0 - 75.0 % Remisol Heme Platelet 424.0 E9/L Normal 150.0 - 500.0 E9/L Remisol Heme Platelet mean volume (Bld) [Entitic vol] 7.8 fL Normal 6.4 - 10.8 fL Remisol Heme RBC (Bld) [#/Vol] 4.8 E12/L Normal 4.3 - 5.9 E12/L Remisol Heme WBC corrected for nucl RBC Auto (Bld) [#/Vol] 12.4 E9/L High 4.0 - 11.0 E9/L Remisol Heme PT & PTTon 05-30-2024 aPTT Coag (PPP) [Time] 35.3 second(s) Normal 25.1-36.5 [facility] Comment on above: Result Comment: Para meter 15 days - 4 weeks 1 - 5 months 6 - 11 months 1 - 5 years 6 - 10 years 11 - 17 years PTT Mean: 35.4 (27.6-45.6) Mean: 33.5 (24.8-40.7) Mean: 32.4 (25.1-40.7) Mean: 31.6 (24.0-39.2) Mean: 31.6 (26.9-38.7) Mean: 31.0 (24.6-38.4) Pediatric Reference ranges were obtained from a study by gaby Graham prepared from 1437 samples obtained at 7 different centers using the same coagulation reagent and instrumentation as [facility]. Currently there are no coagulation studies available worldwide for children to 14 days, and no normal ranges. Heparin therapeutic range (represented by Anti-Factor Xa activity of 0.2 - 0.4 U/mL) corresponds to PTT of 56.6 - 109.0 sec. Performed By: #### 1 [id number] #### [facility] [address] [place] [address] INR Coag (PPP) [Relative time] 1.08 {INR} Invalid Interpretation Code [facility] Comment on above: Result Comment: INR results are specifically intended to assess patients stabilized on long-term Anticoagulation therapy suggested INR???s ???Less Intensive Anticoagulation??? 2.0 ??? 3.0 Conventional Range 3.0 ??? 4.5 Performed By: #### 1 [id number] #### [facility] [address] [place] [address] PT Coag (PPP) [Time] 12.1 second(s) Normal 9.4-12.5 [facility] Comment on above: Result Comment: 15 d ays - 4 weeks 1 - 5 months 6 -11 months 1-5 years 6-10 years 11 -17 years Mean: 11.2 (9.5-12.6) Mean: 11.0 (9.7-12.8) Mean: 11.0 (9.8-13.0) Mean: 11.3 (9.9-13.4) Mean: 11.7 (10.0-14.6) Mean: 11.8 (10.0 - 14.1) Pediatric Reference ranges were obtained from a study by Jorge Gardner, et al. prepared from 1437 samples obtained at 7 different centers using the same coagulation reagent and instrumentation as [facility]. Currently there are no coagulation studies available worldwide for children to 14 days, and no normal ranges. Performed By: #### 1 [id number] #### [facility] [address] [place] [address] SEROLOGYOrdered By: Ton Lerma on 05-30-2024 Beta HCG ( test) Ql Negative (05/30/24 2:32 PM) Normal [facility] Man Sero Troponin 0 Hr.on 05-30-2024 Troponin HS <2.30 Low 10.10-27.10 [facility] Comment on above: Result Comment: The 95% CI (Confidence Interval) PPV (Positive Predictive Value) for myocardial infarction in females is 38 pg/mL, in males 51 pg/mL. The results should be used in conjunction with clinical conditions of myocardial infarction. (Access High Sensitivity Troponin I Instructions For Use, Judy Avoca, February 2018) Performed By: #### 1 [id number] #### [facility] [address] [place] [address] XR Chest Single Viewon 05-30 XR Chest Single View Exam Date/Time: 05/30/2024 14:55 EST Reason for Exam: Chest pain Report IMPRESSION: No acute findings by portable radiography. EXAMINATION/TECHNIQUE: XR Chest Single View HISTORY: Chest pain. COMPARISON: 07/12/2020. RESULT: No consolidation. No pleural effusion. No pneumothorax. Normal cardiomediastinal silhouette. No acute osseous findings. Ordering Provider: Miguelito Rubi FINAL REPORT Dictated: 05/30/2024 2:58 pm Edmond Newby MD Signed (Electronic Signature): 05/30/2024 2:58 pm Signed by: Edmond Newby MD Transcribed by: SURINDER Technologist: SHAHZAD Technical Comments Radiation Dose: Ka,r in mGy = na DAP = na Normal [facility] eGFRon 05-30-2024 eGFR 122 mL/min/1.73 m2 Normal >=59 [facility] Comment on above: Performed By: #### 1 [id number] #### [facility] [address] [place] [address] ED Clinical Summaryon 2023 ED Clinical Summary ED Clinical Summary [address] [address] ED Clinical Summary Person Information Name: SCARLET DURAND[place] Age: 24 Years : 2000 Sex: Female Language: Tuvaluan PCP: DOREEN HA CNP Marital Status: Phone: [phone] Visit Id: Visit Reason: Throat pain - Adult; HURTS TO SWALLOW Speciality: Acuity: 4 Enc Type: Emergency Med Service: Emergency Arrival: 05/17/2024 08:29:16 Discharge: 05/17/2024 09:05:54 LOS: 000 00:36 Checkin: 05/17/2024 08:29:16 Checkout: 05/17/2024 09:05:54 Dispo Type: Home (Routine DC) EVENTS: Event Name Event Status Request Date/Time Start Date/Time Complete Date/Time Arrive Complete 05/17/2024 08:29:16 05/17/2024 08:29:16 05/17/2024 08:29:16 Document Home Meds Request 05/17/2024 08:29:16 Triage Complete 05/17/2024 08:29:16 05/17/2024 08:41:42 05/17/2024 08:41:42 Registration Complete 05/17/2024 08:32:18 05/17/2024 08:32:18 05/17/2024 08:32:18 Reg Complete Request 05/17/2024 08:32:18 Reg Bed Request Complete 05/17/2024 08:32:18 05/17/2024 08:32:18 05/17/2024 08:32:18 Bed Assign Complete 05/17/2024 08:35:46 05/17/2024 08:35:46 05/17/2024 08:35:46 Dr Exam Complete 05/17/2024 08:35:46 05/17/2024 08:37:13 05/17/2024 08:37:13 RN Exam Complete 05/17/2024 08:35:46 05/17/2024 08:46:06 05/17/2024 08:46:06 Registration Request 05/17/2024 08:37:13 Dr Exam Complete 05/17/2024 08:37:51 05/17/2024 08:37:51 05/17/2024 08:37:51 Discharge Complete 05/17/2024 08:41:11 05/17/2024 09:05:59 05/17/2024 09:05:59 Transfer Complete 05/17/2024 09:05:59 05/17/2024 09:05:59 05/17/2024 09:05:59 ADDRESS: [address] [facility] [id number] PHYS DOC NOTES: MEDICAL INFORMATION: Prescriptions Given: New Medications [facility], [address] [place], [place] [id number], [phone] amoxicillin (amoxicillin 500 mg Cap) 1 Capsules By Mouth 3 times a day for 10 Days. Refills: 0. Medications to Continue with No Changes Other Medications ibuprofen (ibuprofen 600 mg Tab) 1 Tablets By Mouth every 6 hours. Refills: 0. lidocaine topical (Lidocaine 2% Viscous) 5 Milliliter Topical four times a day (before meals and at bedtime). Refills: 0. multivitamin, ( Multivitamins with Folic Acid 1.25 mg oral tablet) naproxen (Naprosyn 500 mg Tab) 1 Tablets By Mouth 2 times a day. Refills: 0. naproxen (Naprosyn 500 mg Tab) 1 Tablets By Mouth 2 times a day as needed for pain. Refills: 0. naproxen (naproxen 500 mg Tab) 1 Tablets By Mouth 2 times a day. Take one tab by mouth two times a day. Refills: 0. ondansetron (Zofran ODT 4 mg Tab-Dis) 1 Tablets By Mouth 3 times a day. Refills: 0. ondansetron (Zofran ODT 4 mg Tab-Dis) 1 Tablets By Mouth every 8 hours as needed Nausea/Vomiting. Refills: 0. ondansetron (Zofran ODT 4 mg Tab-Dis) 1 Tablets By Mouth every 8 hours. Refills: 0. sulfamethoxazole-trimet hoprim (Bactrim D.S. 800 mg-160 mg Tab) 1 Tablets By Mouth 2 times a day. Refills: 0. PATIENT EDUCATION INFORMATION: Instructions: Strep Throat, Adult Follow up: With: Address: When: [place] [address] Business (1) In 3 days 05/20/2024 DIAGNOSIS: Pharyngitis Normal [facility] ED Note-Physicianon 05-17-20 ED Note-Physician ED Note-Physician Basic Information Time Seen: Lukas Hernandez PA-C 05/17/2024 08:37 Chief Complaint pt reports painful swallowing for two days. kids have strep at home. History of Present Illness 24-year-old female comes to the ED for evaluation of a sore throat. She states for the last 2 days she has had a sore throat. No fever, chills, nausea or vomiting. Hurts to swallow but no difficulty doing so. No difficulty with speaking. She states her kids were recently tested positive for strep. No concern for . Review of Systems A 10 point review of systems is negative except as noted above. Medical and Surgical History: Reviewed and noted Social history: Lives at home Tobacco: Denies Physical Exam Vitals & Measurements T: 36.8 ?C(Oral) HR: 79(Peripheral) RR: 18 BP: 153/95 SpO2: 95% HT: 162 cm WT: 122.5 kg BMI: 46.68 Nurses notes and vital signs reviewed and patient is not hypoxic. General: The patient appears well, resting comfortably. Skin: Warm, dry. Head: Atraumatic. Neck: No JVD. Eye: Normal conjunctiva. Ears, Nose, Mouth, and Throat: Moist mucous membranes. Mild pharyngeal erythema without tonsil hypertrophy exudates Cardiovascular: Strong distal pulses. Chest wall: Respiratory: Respirations are nonlabored. Back: Normal range of motion. Musculoskeletal: Normal ROM with no gross deformity. Gastrointestinal: Urological: Neurological: Awake and alert. No focal deficits. Follows commands. Psychiatric: Cooperative. Medical Decision Making Patient presents with pharyngitis and a positive strep exposure at home. She has no airway compromise, no abscess formation, no difficulty with speaking or swallowing. She is started oral antibiotics and discharged home PCP follow-up. Patient was encouraged to return to the ED if symptoms worsen or change. Assessment/Plan Pharyngitis (J02.9: Acute pharyngitis, unspecified) Orders: amoxicillin, 500 mg = 1 cap(s), Oral, TID, X 10 day(s), # 30 cap(s), Refills(s) 0, Pharmacy: [facility], 162, cm, 05/09/24 14:21:00 EDT, Height/Length Dosing, 121.6, kg, 05/09/24 14:21:00 EDT, Weight Dosing Disposition Plan Patient Discharge Condition Disposition: Discharged home Condition: Improved and stable Counseled: Patient and/or family were counseled to workup, results, treatment plan and follow-up recommendations Discharge Prescription List Prescriptions amoxicillin 500 mg Cap, 500 mg= 1 cap(s), Oral, TID Follow-up With When Contact Information DOREEN HA In 3 days 05/20/2024 EDT [address] [place] [address] [facility] (1) Additional Instructions: Patient Education Strep Throat, Adult Attestation I performed a substantive part of the MDM during the patient?s E/M visit. I personally made or approved the documented management plan and acknowledge its risk of complications. (Independent Interpretation) My (EKG/X-Ray/US/CT) interpretation as above. (Discussion) Management/test interpretation discussed with APC. This report was transcribed using voice recognition software. Every effort was made to ensure accuracy, however, inadvertently computerized billposter mistakes may be present. Appropriate healthcare PPE was used in evaluating this patient. Problem List/Past Medical History Ongoing Adult BMI 40.0-44.9 kg/sq m Anxiety and depression Back pain with radiculopathy Bilateral arm pain Bipolar 1 disorder, mixed, moderate BMI 45.0-49.9, adult Class 3 severe obesity due to excess calories with body mass index (BMI) of 40.0 to 44.9 in adult Fatigue GDM (gestational diabetes mellitus) Marijuana use Mental disorder in , antepartum Morbid obesity Neuropathy Obesity complicating , second trimester PTSD (post-traumatic stress disorder) Shoulder pain, bilateral Smoker Supervision of high risk in second trimester Historical Amenorrhea Anxiety Bipolar Contraceptive management Depression None Smoker 27-JAN-2014 12:37:00<$> Procedure/Surgical History None. Medications Inpatient No active inpatient medications Home amoxicillin 500 mg Cap, 500 mg= 1 cap(s), Oral, TID Bactrim D.S. 800 mg-160 mg Tab, 1 tab(s), Oral, BID ibuprofen 600 mg Tab, 600 mg= 1 tab(s), Oral, q6hr Lidocaine 2% Viscous, 0.1 gm= 5 mL, Topical, QIDACHS Naprosyn 500 mg Tab, 500 mg= 1 tab(s), Oral, BID Naprosyn 500 mg Tab, 500 mg= 1 tab(s), Oral, BID, PRN naproxen 500 mg Tab, 500 mg= 1 tab(s), Oral, BID Multivitamins with Folic Acid 1.25 mg oral tablet Zofran ODT 4 mg Tab-Dis, 4 mg= 1 tab(s), Oral, q8hr, PRN Zofran ODT 4 mg Tab-Dis, 4 mg= 1 tab(s), Oral, q8hr Zofran ODT 4 mg Tab-Dis, 4 mg= 1 tab(s), Oral, TID Allergies No Known Allergies Social History Alcohol - Denies Alcohol Use, 01/09/2014 DENIES, 10/09/2020 Employment/School - Not employed or in school, 01/27/2018 Unemployed, 0 (more content not included)... Normal [facility] Comment on above: Result Comment: Elec tronically Signed By: Lukas Hernandez PA-C\.br\Date and Time Signed: 05/17/24 08:46 EDT\.br\Electronically Co-Signed By: Bi Galeana DO\.br\Date and Time Co-Signed: 05/17/24 13:13 EDT ED Patient Summaryon 024 ED Patient Summary ED Patient Summary [place] [id number] Patient Discharge Instructions Person Information Name: SCARLET DURAND Age: 24 Years Arrival Date: 05/17/2024 08:29:16 Discharge Diagnosis: Pharyngitis Primary Care Physician: DOREEN HA CNP Provider Information Primary Provider: Bi Galeana DO Advanced Food Service Associate:Lukas Hernandez PA-C The exam and treatment you received in the Emergency Department were for an urgent problem and are not intended as complete care. It is important that you follow up with a doctor, nurse practitioner, or physician?s web assistant for ongoing care. If your symptoms become worse or you do not improve as expected and you are unable to reach your usual health care provider, you should return to the Emergency Department. We are available 24 hours a day. ROMELIASCARLET Kimi has been given the following list of patient education materials, prescriptions and follow-up instructions: Follow-up Instructions: With: Address: When: DOREEN HA [address] [place], [place] [id number] Business (1) In 3 days 05/20/2024 In the event that this physician does not participate in your insurance network, please consult with your insurance company to find a nearby participating provider. Patient Education Materials: Strep Throat, Adult A MESSAGE TO ALL PATIENTS REGARDING OPIOIDS PRESCRIPTION OPIOIDS: WHAT YOU NEED TO KNOW Prescription opioids can be used to help relieve cgikpfkf-ba-chqykw pain and are often prescribed following a surgery or injury, or for certain health conditions. These medications can be an important part of the treatment but also come with serious risks. It is important to work with your healthcare provider to make sure you are getting the safest, most effective care. WHAT ARE THE RISKS AND SIDE EFFECTS OF OPIOID USE? Prescription opioids carry serious risks of addiction and overdose, especially with prolonged use. An opioid overdose, often marked by slowed breathing, can cause sudden . The use of prescription opioids can have a number of side effects as well, even when taken as directed: ? Tolerance?meaning you might need to take more of the medication for the same pain relief ? Physical dependence?meaning you have symptoms of withdrawal when a medication is stopped ? Increased sensitivity to pain ? Constipation ? Nausea, vomiting, and dry mouth ? Sleepiness and dizziness ? Confusion ? Depression ? Low levels of testosterone that can result in lower sex drive, energy, and strength ? Itching and sweating RISKS ARE GREATER WITH: ? History of drug misuse, substance use disorder, or overdose ? Mental health conditions (such as depression or anxiety) ? Sleep apnea ? Older age (65 years and older) ? Avoid alcohol while taking prescription opioids. Also, unless specifically advised by your health care provider, medications to avoid include: ? Benzodiazepines (such as Xanax or Valium) ? Muscle relaxants (such as Soma or Flexeril) ? Hypnotics (such as Ambien or Lunesta) ? Other prescription opioids KNOW YOUR OPTIONS Talk to your health care provider about ways to manage your pain that don?t involve prescription opioids. Some of these options may actually work better and have fewer risks and side effects. Options may include: ? Pain relievers such as acetaminophen, ibuprofen, and naproxen ? Some medication that are also used for depression or seizures ? Physical therapy and exercise ? Cognitive behavioral therapy, a psychological, goal-directed approach, in which patients learn how to modify physical, behavioral, and emotional triggers of pain and stress. IF YOU ARE PRESCRIBED OPIOIDS FOR PAIN: ? Never take opioids in greater amounts or more often than prescribed. ? Follow up with your primary health care provider. o Work together to create a plan on how to manage your pain. o Talk about ways to help manage your pain that don?t involve prescription opioids. o Talk about any and all concerns and side effects. ? Help prevent misuse and abuse o Never sell or share prescription opioids. o Never use another person?s prescription opioids. ? Store prescription opioids in a secure place and out of reach of others (this may include visitors, children, friends, and family). ? Safely dispose of unused prescription opioids: Find your community drug take-back program or your pharmacy mail-back program, or flush them down the toilet, following guidance from the Food and Drug Administration (www.fda.gov/Drugs/Reso urcesForYou). ? Visit www.cdc.gov/drugoverdos e to learn about the risks of opioids abuse and overdose. ? If you believe you may be struggling with addiction, tell your health care tech and ask for guidance or call SAMHSA?S National Helpline at 8-953-5 (more content not included)... Normal [facility] ED Clinical Summaryon 2023 ED Clinical Summary ED Clinical Summary [place] [id number] ED Clinical Summary Person Information Name: SCARLET DURAND Kimi Burns/[place]ian Age: 24 Years : 2000 Sex: Female Language: Tuvaluan PCP: DOREEN HA CNP Marital Status: Phone: [phone] Visit Id: Visit Reason: Dental pain; MOUTH PAIN Speciality: Acuity: 5 Enc Type: Emergency Med Service: Emergency Arrival: 05/09/2024 14:12:02 Discharge: 05/09/2024 16:18:57 LOS: 000 02:06 Checkin: 05/09/2024 14:12:02 Checkout: 05/09/2024 16:18:57 Dispo Type: Home (Routine DC) EVENTS: Event Name Event Status Request Date/Time Start Date/Time Complete Date/Time Arrive Complete 05/09/2024 14:12:02 05/09/2024 14:12:02 05/09/2024 14:12:02 Document Home Meds Request 05/09/2024 14:12:02 Triage Complete 05/09/2024 14:12:02 05/09/2024 14:21:27 05/09/2024 14:21:27 Registration Complete 05/09/2024 14:14:17 05/09/2024 14:14:17 05/09/2024 14:14:17 Reg Complete Request 05/09/2024 14:14:17 Reg Bed Request Complete 05/09/2024 14:14:17 05/09/2024 14:14:17 05/09/2024 14:14:17 Bed Assign Complete 05/09/2024 14:32:54 05/09/2024 14:32:54 05/09/2024 14:32:54 Dr Exam Complete 05/09/2024 14:32:54 05/09/2024 14:58:41 05/09/2024 14:58:41 RN Exam Complete 05/09/2024 14:32:54 05/09/2024 14:48:20 05/09/2024 14:48:20 Registration Request 05/09/2024 14:58:41 Dr Exam Complete 05/09/2024 15:06:54 05/09/2024 15:06:54 05/09/2024 15:06:54 Meds Admin Request 05/09/2024 15:11:54 Meds Admin Complete 05/09/2024 15:19:19 05/09/2024 15:29:42 Discharge Complete 05/09/2024 16:13:26 05/09/2024 16:19:02 05/09/2024 16:19:02 Transfer Complete 05/09/2024 16:19:02 05/09/2024 16:19:02 05/09/2024 16:19:02 ADDRESS: [address] [facility] [id number] PHYS DOC NOTES: MEDICAL INFORMATION: Prescriptions Given: New Medications [id number], [address] [place], [place] [id number], [phone] lidocaine topical (Lidocaine 2% Viscous) 5 Milliliter Topical four times a day (before meals and at bedtime). Refills: 0. penicillin V potassium (penicillin V potassium 500 mg Tab) 1 Tablets By Mouth every 6 hours for 7 Days. Refills: 0. Medications to Continue with No Changes Other Medications ibuprofen (ibuprofen 600 mg Tab) 1 Tablets By Mouth every 6 hours. Refills: 0. multivitamin, ( Multivitamins with Folic Acid 1.25 mg oral tablet) naproxen (Naprosyn 500 mg Tab) 1 Tablets By Mouth 2 times a day. Refills: 0. naproxen (Naprosyn 500 mg Tab) 1 Tablets By Mouth 2 times a day as needed for pain. Refills: 0. naproxen (naproxen 500 mg Tab) 1 Tablets By Mouth 2 times a day. Take one tab by mouth two times a day. Refills: 0. ondansetron (Zofran ODT 4 mg Tab-Dis) 1 Tablets By Mouth 3 times a day. Refills: 0. ondansetron (Zofran ODT 4 mg Tab-Dis) 1 Tablets By Mouth every 8 hours as needed Nausea/Vomiting. Refills: 0. ondansetron (Zofran ODT 4 mg Tab-Dis) 1 Tablets By Mouth every 8 hours. Refills: 0. sulfamethoxazole-trimet hoprim (Bactrim D.S. 800 mg-160 mg Tab) 1 Tablets By Mouth 2 times a day. Refills: 0. PATIENT EDUCATION INFORMATION: Instructions: Dental Pain, Zqso-yr-Kiyw Follow up: With: Address: When: Dental: [facility] [phone] In 3 days 05/12/2024 With: Address: When: Dental: [facility] [phone] In 3 days 05/12/2024 With: Address: When: Dental: [facility] [phone] In 3 days 05/12/2024 Comments: Call to schedule a follow-up appointment with the dentists provided or the [facility] dentist on the pamphlet in the next 2 to 3 days. Take the antibiotic as prescribed. Use the viscous lidocaine as needed for pain management along with Tylenol and ibuprofen. Return to ED with any new or worsening symptoms. With: Address: When: DOREEN [address] [place], [place] [id number] Business (1) In 3 days DIAGNOSIS: Broken or cracked tooth, nontraumatic; Pain, dental [facility] ED Note-Physicianon 05-09-20 ED Note-Physician ED Note-Physician Basic Information Time Seen: Toro MONDRAGON, Lois Bolivar 05/09/2024 14:58 Chief Complaint mouth pain/swelling x 3 days History of Present Illness Patient is a 24-year-old female with a history of bipolar disorder who presents to the ED with mouth pain that began 3 days ago. Patient states she was eating an apple when she broke one of her right upper teeth. Patient states she has been experiencing consistent pain since then that has begun to radiate into her right ear. Patient states that she has seen 3 dentists previously for prior dental work but does not have a dentist currently. Patient denies taking any medication for the pain. She also denies fevers, difficulty swallowing, shortness of breath, or chest pain. Review of Systems A 10 point review of systems is negative except as noted above. Medical and Surgical History: Reviewed and noted Social history: Lives at home Family History: Reviewed. Tobacco: former Physical Exam Vitals & Measurements T: 37.1 ?C(Oral) HR: 94(Peripheral) RR: 16 BP: 131/85 SpO2: 100% HT: 162 cm WT: 121.6 kg BMI: 46.33 General: The patient appears well and in no apparent distress. Patient is resting comfortably on cart. Skin: Warm, dry, no pallor noted. Head: Normocephalic, atraumatic Neck: No JVD Eye: PERRLA, EOMI ENT: #2 tooth is broken with mild tenderness around it, no gingival erythema. no swelling. No evidence of abscess formation. No dental instability or bleeding. No tonsillar hypertrophy or exudates. Poor dentition with multiple missing teeth, uvula is midline. No associated stridor, trismus or drooling. Tympanic membranes unremarkable bilaterally Cardiovascular: Regular rate normal peripheral perfusion Respiratory: No respiratory distress no accessory muscle use no obvious audible wheezing Neurological: A&O moves all extremities equal strength and symmetry Psychiatric: Cooperative and appropriate Medical Decision Making Patient is a 24-year-old female with a history of bipolar disorder who presents to the ED with mouth pain that began 3 days ago. Patient is hemodynamically stable and afebrile. There is no posterior pharyngeal erythema or edema, uvula is midline. No evidence of abscess formation, patient is tolerating secretions. The #2 tooth is broken with mild tenderness. Patient has poor dentition with multiple missing teeth and dental caries. She is given Toradol, topical lidocaine and topical benzocaine in the ED. She is being prescribed penicillin for dental infection prophylaxis and was given her first dose prior to discharge. Patient is given a referral to dentists and will follow-up with one in the next 2 to 3 days. She was advised return to ED with any new or worsening symptoms. Patient is agreeable with the plan and all questions were answered. Assessment/Plan Broken or cracked tooth, nontraumatic (K03.81: Cracked tooth) Pain, dental (K08.89: Other specified disorders of teeth and supporting structures) Orders: benzocaine topical, 1 micaela, Gel, Topical, QID, STAT, Start date 05/09/24 15:11:00 EDT ketorolac, 30 mg = 1 mL, Injection, IntraMuscular, Once, Stop date 05/09/24 15:11:00 EDT, STAT, Start date 05/09/24 15:11:00 EDT, 05/09/24 15:11:00 EDT lidocaine topical, 0.1 gm, 5 mL, Topical, QIDACHS, 100 mL, Refill(s) 0, [id number], 162, cm, 05/09/24 14:21:00 EDT, Height/Length Dosing, 121.6, kg, 05/09/24 14:21:00 EDT, Weight Dosing lidocaine topical, 200 mg, 10 mL, Soln-Oral, Oral, Once, Stop date 05/09/24 15:11:00 EDT, STAT, Start date 05/09/24 15:11:00 EDT penicillin V potassium, 500 mg = 1 tab(s), Oral, q6hr, X 7 day(s), # 28 tab(s), Refills(s) 0, Pharmacy: [id number], 162, cm, 05/09/24 14:21:00 EDT, Height/Length Dosing, 121.6, kg, 05/09/24 14:21:00 EDT, Weight Dosing penicillin V potassium, 500 mg = 1 tab(s), Tab, Oral, Once, Stop date 05/09/24 15:18:00 EDT, STAT, Start date 05/09/24 15:18:00 EDT, 05/09/24 15:18:00 EDT Medications Administered Given Hurricaine 20% mucous membrane gel, 1 micaela, Topical ketorolac 30 mg/mL Inj 1 mL, 30 mg, IntraMuscular lidocaine Viscous Top 2% Guerita, 200 mg, Oral penicillin V potassium 500 mg Tab, 500 mg, Oral Disposition Plan Patient Discharge Condition stable Discharge Disposition home Discharge Prescription List Prescriptions Lidocaine 2% Viscous, 0.1 gm= 5 mL, Topical, QIDACHS penicillin V potassium 500 mg Tab, 500 mg= 1 tab(s), Oral, q6hr Follow-up With When Contact Information Dental: [facility] [phone] In 3 days 05/12/2024 EDT Additional Instructions: Dental: [facility] [phone] In 3 days 05/12/2024 EDT Additional Instructions: Dental: [facility] [phone] In 3 days 05/12/2024 EDT Additional Instructions: Call to schedule a follow-up appointment with the dentists provided or the [facility] on the pamphlet in the next 2 to 3 days. Take the antibiotic as prescribed. Use the viscous lidocaine as needed for (more content not included)... Normal [facility] Comment on above: Result Comment: Elec tronically Signed By: Toro MONDRAGON, Lois Bolivar\.br\Date and Time Signed: 05/09/24 16:15 EDT\.br\Electronically Co-Signed By: Bi Galeana DO\.br\Date and Time Co-Signed: 05/09/24 17:12 EDT ED Patient Summaryon 024 ED Patient Summary ED Patient Summary [address] [address] Patient Discharge Instructions Person Information Name: SCARLET DURAND Age: 24 Years Arrival Date: 05/09/2024 14:12:02 Discharge Diagnosis: Broken or cracked tooth, nontraumatic; Pain, dental Primary Care Physician: DOREEN HA CNP Provider Information Primary Provider: Bi Galeana DO Advanced Food Service Associate:Lois Engel PA-C The exam and treatment you received in the Emergency Department were for an urgent problem and are not intended as complete care. It is important that you follow up with a doctor, nurse practitioner, or physician?s web assistant for ongoing care. If your symptoms become worse or you do not improve as expected and you are unable to reach your usual health care provider, you should return to the Emergency Department. We are available 24 hours a day. SCARLET DURAND has been given the following list of patient education materials, prescriptions and follow-up instructions: Follow-up Instructions: With: Address: When: Dental: [facility] [phone] In 3 days 05/12/2024 With: Address: When: Dental: [facility] [phone] In 3 days 05/12/2024 With: Address: When: Dental: [facility] [phone] In 3 days 05/12/2024 Comments: Call to schedule a follow-up appointment with the dentists provided or the [facility] dentist on the pamphlet in the next 2 to 3 days. Take the antibiotic as prescribed. Use the viscous lidocaine as needed for pain management along with Tylenol and ibuprofen. Return to ED with any new or worsening symptoms. With: Address: When: DOREEN HA [address] [place] [address] [place] [address] Business (1) In 3 days In the event that this physician does not participate in your insurance network, please consult with your insurance company to find a nearby participating provider. Patient Education Materials: Dental Pain, Nryb-lr-Xocl A MESSAGE TO ALL PATIENTS REGARDING OPIOIDS PRESCRIPTION OPIOIDS: WHAT YOU NEED TO KNOW Prescription opioids can be used to help relieve wokpsksn-tx-kftmvk pain and are often prescribed following a surgery or injury, or for certain health conditions. These medications can be an important part of the treatment but also come with serious risks. It is important to work with your healthcare provider to make sure you are getting the safest, most effective care. WHAT ARE THE RISKS AND SIDE EFFECTS OF OPIOID USE? Prescription opioids carry serious risks of addiction and overdose, especially with prolonged use. An opioid overdose, often marked by slowed breathing, can cause sudden . The use of prescription opioids can have a number of side effects as well, even when taken as directed: ? Tolerance?meaning you might need to take more of the medication for the same pain relief ? Physical dependence?meaning you have symptoms of withdrawal when a medication is stopped ? Increased sensitivity to pain ? Constipation ? Nausea, vomiting, and dry mouth ? Sleepiness and dizziness ? Confusion ? Depression ? Low levels of testosterone that can result in lower sex drive, energy, and strength ? Itching and sweating RISKS ARE GREATER WITH: ? History of drug misuse, substance use disorder, or overdose ? Mental health conditions (such as depression or anxiety) ? Sleep apnea ? Older age (65 years and older) ? Avoid alcohol while taking prescription opioids. Also, unless specifically advised by your health care provider, medications to avoid include: ? Benzodiazepines (such as Xanax or Valium) ? Muscle relaxants (such as Soma or Flexeril) ? Hypnotics (such as Ambien or Lunesta) ? Other prescription opioids KNOW YOUR OPTIONS Talk to your health care provider about ways to manage your pain that don?t involve prescription opioids. Some of these options may actually work better and have fewer risks and side effects. Options may include: ? Pain relievers such as acetaminophen, ibuprofen, and naproxen ? Some medication that are also used for depression or seizures ? Physical therapy and exercise ? Cognitive behavioral therapy, a psychological, goal-directed approach, in which patients learn how to modify physical, behavioral, and emotional triggers of pain and stress. IF YOU ARE PRESCRIBED OPIOIDS FOR PAIN: ? Never take opioids in greater amounts or more often than prescribed. ? Follow up with your primary health care provider. o Work together to create a plan on how to manage your pain. o Talk about ways to help manage your pain that don?t involve prescription opioids. o Talk about any and all concerns and side effects. ? Help prevent misuse and abuse o Never sell or share prescription opioids. o Never use another person?s prescription opioids. ? Store p (more content not included)... Normal [facility] Coding Summary.on 01-16-2024 Coding Summary. TIATNghi18ZRh1kRl+PG hlY WQ+EX2LWYUqI83unOWdeU8d R5DYXGbQNgbbRSHWAXqDDqX wkqNlQW3lxTBaADYs IC8+QB2dIPWiFlasoHVpd4I 1aIG0K42fja4eHTxqdDV1ZM VlBsFxaclug1gxvJr8MNtsR mluOyBt DZAkgU48SEL1kZ81Fm62nBF xlYNum5symOs5LzIqCLQaIQ Q9zBrcZKeum6JoGUDsP47ks XKty7W1 LDWxoUvcfXKpEnWlxSW0xK1 fDIckdiadd9gbwpjsPzt5ru 97mNJjt3X9oES8X7PiffG4P GJvbGQg EitnmUDUtW2yhpfox2hnglq cExDmRKRmGSq8AQz0TQMmvX tlAmHvGB64JMD0ONZrzdOcL 2FsLWFs zBfmDzK9r2H0Yy5JC3MBBjg yF4CJDELKCRqivAZ+PC90cj 24J0VfOuvkXxl6MBGbRQT6k XZ4mS3t VYQsVKvwq5V8uYQ3K9OcwvP jra2ai8wfZPHtDQkpT10tnE Qby2F0NBAhhXZ8ZDXhyJwoT iBzaG93 Oyc+WOLuzYkql3JkSpvum5e xi0obhRm9OugpIYCgvrMqwO xzNHI3a4TcEq5wGQXuyHH0t KY4kL9g LjIqWiT0GPquQ695RcAjrNM nXlzsS44vM7DgfBB+PHRyPj a7MEAhxTdvAM9eF2EdFEGvd mctbGVm zZedKU8fMDRjopbbBZGguD9 cUKZoF6z2UjPuKdH7MUgeV4 XsJFUhsldmNu90mD4lDqLvJ vQ1BYeo O9VsjzY3UIMqmTBmHQywZAR 3N46ab4X2NDUoFXHtNZS8tX M1kN8pjAzxxpuqiPQebIckf mVydGlj GQldKXsfO597LWQnhCsoAvG vZGluZyBEYXRlOiAgMDYvMj EvMjAyNDwvdGQ+KLTbHIC3l WxlPSAn nRYaQUpiMs2zrHrsoTnzMK1 zNTPgvkhgARXvzE5yRMLjhR RqzUrqAA0lQMRvugmgc651L iAxMHB0 TGHlcJGuW3YnyD1iWfBwXCQ vZCPpG9TvxPLjTKoqS381PP haBtI6MNEocbOmF3NdCKYym WduOiB0 k5J8Ue5Eb2VoghkcF6EugJZ zRdGfYbaeEKz9J1LpYkprcW I+HC01WLTaZJ22HVd9PEP0j WxlPSdi XPHkA0CdjJ4qOtIePZRxFUA kOyc+PHRhYmxlIHdpZHRoPS auABIuZzAzpMuwXH4aTn2qT GVyLWNv xFzzjNMtEdUhc8igGMQnCLe nCU7gfFyqQ4DscBX8VUJib5 g5Pz64V13xO5VlgOH+PGNvb VW4iOK1 sN7uQdJlOwY3BFdiJ068QhB rsDWhVveme7dyf6zhyLn5Vi O3WDOoniHmqHrnXQH1i7GtQ o97J90w IHdpZHRoPSIxNSUiIHZhbGl yeg2kvQ2hUf1+VLTnzIO9aG Y4dY3eTnBcWfN0BYbvT977L nRvcCIv Othmh8gji1tciWd4ObSxVJQ egnKnsXdhEHT0k5UnZh98M8 IiyTbdb9DrJvg5ri18bBJou 8R1uVD3 O6WhVVRwtpdxoEVxfAzqPY2 sHOSddhocMPDpmK2yGLLuH5 k0ZlVmRkU7QWwlN2VzkwR5N GJvbGQg FCZsjXRJoD7tkdpni8zdjem iNrLpRREmCUz7JBk6BVNmpD dsBkYhUXB5RdB2IAB1xGPbf G8dxEfz jthgpD3cAvd+GRV2gIBzhAI MRQ4xWildpCR+URHvOTH7iG xpLFsySZGotG9sZQRhI8z4O iAwLjA1 QLsfB4QfwaM2BFOltMXyPYU owKGJrF1rfagpn0cvlftrGk SqHPDxEHu4GIy2HQYnkTiaJ iBsZWZ0 IkL7IGX5sMEtgM6huStplyk dvD8aJkd+YtrpvHokIVO1LW d8T6IyRqb5MBCaqOrxXH5qm GFkZGlu Tc3fsDrmxQlkMI7xJLCzgru up460YeYyv1ozUMVrbTMaPU ezMKI2Z84xv2Z8GCBxZXVhO ZS0aGR1 vR1zdRfravabaZMkfAbywvA mmLhtZSurMXmgI703QERufL hpGtXmREh6O1PgRyh1RGCxf XkhDC4h fHOdIFtvJb3yoGbqrBfsWP4 lECLbmehfc459GkNbv0duQE RpaRXaJXbhIYW0S67nm7S4Z CMwMDAw WIG6wTP8xW5axWbilegflRD mdDsgdmVydGljYWwtYWxpZ2 83LWGecWsnOvXqqCt7F9BuT yu8SEZy vXqcLO2vyPKiFHtzBw9rzQt jeOadML8mYCJphxuwj993Ym Abf3qqEBGdqCChOHeySEG7I 88nr5U6 PVEqFPBaTBL7xKU7kV9itKn nbjogbGVmdDsgdmVydGljYW wcUFymK917MVDmlBdkHvDpo GllbnQg UWcqZOg9D4ZnYpqsySU+PC9 9BEGuSB77tMPrmBIhn8vchE y5AlFgYSUaKRL3qPikNSpmd 3JkZXIt K00zySSwg5V0GXCmwYhhzCT lSlXluGP7wS0tSSolkgdri0 abqvdvQjmes1vrvp94cS85Y 29sIHdp ZHRoPSIzMCUiIHZhbGlnbj0 nyU6yNd3+ZTLzkHK8zJJ0jD 6bIPCtUpL6RZruQ342DvXux CIvPjxj i5fih7ksqQe3FeZ1BNVoyrS hmPkaMQP6a8UtKe42H41vJL dpZHRoPSIyMCUiIHZhbGlnb x8lqC3g Ii8+CWFkdVM1hES3bX5sYoH pQjK2LYkyW444SxNciTNnUq grG46mL0JuzWL+PXUoVis4U CBzdHls VF4dlEFuDRhfTq8dTKE0XoB bEaPgMQbtQ7IwDOHaprjszx scoMZ3UIWdTMPdpO67Gw2of DogMTBw cUREuW1tfxcgj8ieqpmxDiC vMKCfLZy9GKv6HZGjpDayUk IpYOB6CyI2SYJ3iHQboD9mr Glnbjog iB5nP3DpBZWppsscOw81sB2 uMjYzBkK1EMztPut+UFVDS0 PYPApmORHUZBzWFSYAHJ79O Y41eJCn a5N5rDP0U4PiQWKcdtgkein qjOP9LHCmRBIvtA92hTYrKJ gtXr5pi1L1j493IAZuWAXbm Q65Xv6z nQrmDKYyvGTVbO4erojgx9x eeimvFeQeARFkNFc1QWa9US TojXksDaQoRNR9LdO0AIS3e YIbhS6j qXotzhdhmF1jSun+MDYvMTI iFVt6YGpeaCT+CYFiYZZ8wH idCPygRAObeW3bNJOdI5s5H iAwLjA1 MZucK1XvXNDhnpofPd41eS9 fOvHoRbI1NNcxL2AkglP6DL XzwVTzMKxmPOX7A37td3F8J CMwMDAw DKN6gFD9dV3srLgabiwyfSU mdDsgdmVydGljYWwtYWxpZ2 10WVJpzUoxGzP7FGegFACpY K30PZ73 pHFoh5D0nVW6X9CqEWNgusu tjegznXB0EMMjLXQafK75aU AtAXdwFc4xc8Z0c781ZJEmZ DUwaW47 Ay7bnSqyDRBvcFCMpZ9xrnv rt3cqzobiRbUgOHAzCPu4YL a9IIVunElmIvQxLLO1UjD8Z MW9wCJq uF8ooJpypfkfvY2yQya+RmV pILluQO53CI52oDQxs9F8kY V5F6MqOCVacayrudyzqXT7P DAuMDUw sP87vSQnJAwjQh1pu9S4s96 4ZTVzRIRixY59Qd0xdRolYT FwpAXItT1wuqiyf3dbmcczI zAwMDAw YXi9MQw5OHUfeMgqBpIbRVJ 0BsA4OWY8rFYkkA8awSixwo tvlX4hWcd+PB9japknvlU3R X32SV47 Z4PwTzpdtLFtdJZ+PHRhYmx lIHdpZHRoPScxMDAlJyBzdH jdMG8sUg3qTSCzCJEbaMxay HNlOiBj n1vnVCQjIUeaZK4ktPzyD7Y zoTU5VWCan8k9Zp36W98uV6 JvdXA+CRIyyDZ3vKG2xR4lC zAlIiB2 CVgiV084MoRntQFyGxbbt6q gm3holQf0AbGlWVBgweQauR hdKZN0d0UsDt89M61eHAgjM HRoPSIy WRQyNLXymUccqs5hrT0xCw5 +FYNhmKY8pBY5iL3vEdKqJn C4QGcbU920IoQduQTcTnwjV 44nY4Bd dXA+YECuBpl0TENhsYmdCK9 xiJHxKLmnKh5hLAY7GnLrSg IbUJazZ5AySOYoujpvmkmyx SC4MLGw SYZxkB02Re2jsNboWq5pOSY yXKQ2WVDazUDbR9IraD0aRm NeGTQxNJMhK0RyqRKyQKbfP 246IGxl XdP8SKKzoxYpU4FvPTWpuFk bHoZ0s3C7Ey9QhNvysIZgTV 0nWmNvLSs0U3TpUcg7URHfb CiwLJ2t nHQeCEbaLj1efKbzzCbbCU3 jTSEsyjzjo606ItOtq0elQI NjoWOnIZdoBUN1W76aj4J0F CMwMDAw DHB2oUS3zY9qzYubildnlOZ mdDsgdmVydGljYWwtYWxpZ2 17KLXvaZswEjBICci8B7LwF ru4YVRm yUgrWK8voAUjYNxxOk5mnOe vmAarMY0zTBAcuganv103Bf Tvu1iwFQBdvMQaUQbiVUE1D 45gv2A1 DBCtLYWnUKW5jLK9jZ5nzQs nbjogbGVmdDsgdmVydGljYW oyVKncV127KDGliYcmSb8JH pq4P5Ik Gic2VHAdhDyxEP5fvHUyJUy eJk6duZgliEnfVX2nFVSfxd dsf989DcKzw3rdNYQixFBfH GltZXM7 T57kl7G4LYUbNYAoHWZ5mBX 7gC7ecKjyffaqtVXnlNzfdw CxuTidZHbwVPbzR203JJOvl DsnPlBh eWVyOjwvdGQ+BR94jo46Z0F zCqeaVsi7JWVeITR7jAS0pC 7bLDDsUYgpc5B2sCA2O0Uzy xXgbi0l y8ijCXRyNIptL (more content not included)... Normal [facility] Discharge Instructionson Discharge Instructions [id number] IFF Normal [facility] ED Clinical Summaryon 2023 ED Clinical Summary (Inserted Image. Paola ble to display) [place] [id number] ED Clinical Summary Person Information Name: SCARLET DURAND/[facility] Age: 24 Years : 2000 Sex: Female Language: Tuvaluan PCP: DOREEN HA CNP Marital Status: Phone: [phone] Visit Id: Visit Reason: Medical problem - minor; Throat pain - Adult; SORE THROAT Speciality: Acuity: 3 Enc Type: Emergency Med Service: Emergency Arrival: 01/12/2024 23:46:16 Discharge: 01/13/2024 00:47:42 LOS: 000 01:01 Checkin: 01/12/2024 23:46:16 Checkout: 01/13/2024 00:47:42 Dispo Type: Home (Routine DC) EVENTS: Event Name Event Status Request Date/Time Start Date/Time Complete Date/Time Arrive Complete 01/12/2024 23:46:16 01/12/2024 23:46:16 01/12/2024 23:46:16 Document Home Meds Request 01/12/2024 23:46:16 Triage Complete 01/12/2024 23:46:16 01/13/2024 00:00:18 01/13/2024 00:00:18 Registration Complete 01/12/2024 23:47:56 01/12/2024 23:47:56 01/12/2024 23:47:56 Reg Complete Request 01/12/2024 23:47:56 Reg Bed Request Complete 01/12/2024 23:47:56 01/12/2024 23:47:56 01/12/2024 23:47:56 Dr Exam Complete 01/12/2024 23:48:11 01/12/2024 23:48:11 01/12/2024 23:48:11 Registration Complete 01/12/2024 23:48:11 01/13/2024 00:00:46 01/13/2024 00:01:38 Bed Assign Complete 01/13/2024 00:00:46 01/13/2024 00:00:46 01/13/2024 00:00:46 RN Exam Complete 01/13/2024 00:00:46 01/13/2024 00:23:03 01/13/2024 00:23:03 Pending Labs Complete 01/13/2024 00:11:20 01/13/2024 00:40:15 Meds Admin Complete 01/13/2024 00:11:20 01/13/2024 00:23:49 Pending Labs Inlab 01/13/2024 00:40:16 01/13/2024 00:40:16 Discharge Complete 01/13/2024 00:44:09 01/13/2024 00:47:46 01/13/2024 00:47:46 Transfer Complete 01/13/2024 00:47:46 01/13/2024 00:47:46 01/13/2024 00:47:46 ADDRESS: [address] [place] [address] [address] [facility] [id number] PHYS DOC NOTES: MEDICAL INFORMATION: Prescriptions Given: Medications to Continue with No Changes Other Medications ibuprofen (ibuprofen 600 mg Tab) 1 Tablets By Mouth every 6 hours. Refills: 0. multivitamin, ( Multivitamins with Folic Acid 1.25 mg oral tablet) naproxen (Naprosyn 500 mg Tab) 1 Tablets By Mouth 2 times a day. Refills: 0. naproxen (Naprosyn 500 mg Tab) 1 Tablets By Mouth 2 times a day as needed for pain. Refills: 0. naproxen (naproxen 500 mg Tab) 1 Tablets By Mouth 2 times a day. Take one tab by mouth two times a day. Refills: 0. ondansetron (Zofran ODT 4 mg Tab-Dis) 1 Tablets By Mouth 3 times a day. Refills: 0. ondansetron (Zofran ODT 4 mg Tab-Dis) 1 Tablets By Mouth every 8 hours as needed Nausea/Vomiting. Refills: 0. ondansetron (Zofran ODT 4 mg Tab-Dis) 1 Tablets By Mouth every 8 hours. Refills: 0. sulfamethoxazole-trimet hoprim (Bactrim D.S. 800 mg-160 mg Tab) 1 Tablets By Mouth 2 times a day. Refills: 0. PATIENT EDUCATION INFORMATION: Instructions: Sore Throat, Mwob-al-Heze Follow up: With: Address: When: DOREEN HA [address] [place], [place] [id number] [facility] () In 3 days 01/16/2024 Comments: You can use ibuprofen, Tylenol every 6 hours as needed for pain. Please follow-up with your primary care doctor next 2 to 3 days for further evaluation management. Please return to the ED for any new or worsening symptoms. DIAGNOSIS: Sore throat Normal [facility] ED Note-Physicianon 01-13-20 ED Note-Physician Basic Information Time Seen: Aleta Oliveira DO 01/12/2024 23:48 Chief Complaint Painful to swallow since yesterday. NO fever. History of Present Illness Patient is a 24-year-old female presenting to the ED for evaluation of sore throat. Patient states her symptoms started yesterday, difficult to swallow due to the pain. Patient denies any fevers, chills, cough, congestion, any nausea or vomiting. Patient states her children are currently sick with RSV. Review of Systems A 10 point review of systems is negative except as noted above. Medical and Surgical History: Reviewed and noted Social history: Lives at home Tobacco: Denies Physical Exam Vitals & Measurements T: 36.9 ?C(Oral) HR: 117(Peripheral) RR: 16 BP: 122/82 SpO2: 98% HT: 162.5 cm WT: 121.6 kg BMI: 46.05 General: Well developed, non toxic appearing, no acute distress HEENT: Head atraumatic, Mucosa moist, hearing grossly normal general erythema with tonsillar hypertrophy no unilateral tonsillar swelling Neck: No JVD, tracheal deviation Cardiac: Regular rate, rhythm, no murmurs, or gallops, 2+ radial pulses Respiratory: Lungs clear to auscultation B/L, normal respiratory effort Abdomen: Soft non tender, no rebound or guarding, no peritoneal signs Extremities: No edema noted in the LE B/L, no tenderness to palpation Neurologic: Alert and oriented, speech clear Skin: No rashes or lesions Psych: Appropriate mood and behavior Medical Decision Making MEDICAL DECISION MAKING Number and Complexity of Problems Differential Diagnosis: [] [facility] Data External documents reviewed: [] My EKG interpretation: [] My CT interpretation: [] My X-ray interpretation: [] My Ultrasound interpretation: [] Decision rules/scores evaluated: [] Discussed with: [] Treatment and Disposition ED Course: Patient is a 24-year-old female presenting to the ED for evaluation of a sore throat. Patient is nontoxic and on arrival, no acute distress. Does have pharyngeal erythema on examination. Strep swab is obtained and is negative. Patient is given Decadron in the ED for symptomatic treatment. Discussed findings with patient she is advised on symptomatic management at home. She follow-up with her primary care doctor next 2 to 3 days. She is to return to ED for any new or worsening symptoms. Shared decision making: [] Code status: [] Assessment/Plan Sore throat (J02.9: Acute pharyngitis, unspecified) Orders: dexamethasone, 10 mg = 2.5 tab(s), Tab, Oral, Once, Stop date 01/13/24 0:11:00 EDT, STAT, Start date 01/13/24 0:11:00 EDT, 01/13/24 0:11:00 EDT Group A Strep by PCR Rapid Strep w/rfx Medications Administered Given dexamethasone 4 mg Tab, 10 mg, Oral Disposition Plan Discharge Prescription List Prescriptions No active prescription medications Follow-up With When Contact Information DOREEN HA In 3 days 01/16/2024 [place] [address]- Business (1) Additional Instructions: You can use ibuprofen, Tylenol every 6 hours as needed for pain. Please follow-up with your primary care doctor next 2 to 3 days for further evaluation management. Please return to the ED for any new or worsening symptoms. Patient Education Sore Throat, Fzaf-ez-Pbda Problem List/Past Medical History Ongoing Adult BMI 40.0-44.9 kg/sq m Anxiety and depression Back pain with radiculopathy Bilateral arm pain Bipolar 1 disorder, mixed, moderate BMI 45.0-49.9, adult Class 3 severe obesity due to excess calories with body mass index (BMI) of 40.0 to 44.9 in adult Fatigue GDM (gestational diabetes mellitus) Marijuana use Mental disorder in , antepartum Morbid obesity Neuropathy Obesity complicating , second trimester PTSD (post-traumatic stress disorder) Shoulder pain, bilateral Smoker Supervision of high risk in second trimester Historical Amenorrhea Anxiety Bipolar Contraceptive management Depression None Smoker 27-JAN-2014 12:37:00<$> Procedure/Surgical History None. Medications Inpatient No active inpatient medications Home Bactrim D.S. 800 mg-160 mg Tab, 1 tab(s), Oral, BID ibuprofen 600 mg Tab, 600 mg= 1 tab(s), Oral, q6hr Naprosyn 500 mg Tab, 500 mg= 1 tab(s), Oral, BID Naprosyn 500 mg Tab, 500 mg= 1 tab(s), Oral, BID, PRN naproxen 500 mg Tab, 500 mg= 1 tab(s), Oral, BID Multivitamins with Folic Acid 1.25 mg oral tablet Zofran ODT 4 mg Tab-Dis, 4 mg= 1 tab(s), Oral, q8hr, PRN Zofran ODT 4 mg Tab-Dis, 4 mg= 1 tab(s), Oral, q8hr Zofran ODT 4 mg Tab-Dis, 4 mg= 1 tab(s), Oral, TID Allergies No Known Allergies Social History Alcohol - Denies Alcohol Use, 01/09/2014 DENIES, 10/09/2020 Employment/School - Not employed or in school, 01/27/2018 Unemployed, 01/08/2018 Home/Environment - Low Risk, 01/27/2018 Lives with grandparent. Living situ (more content not included)... Normal [facility] Comment on above: Result Comment: Elec maldonadoally Signed By: Aleta Oliveira DO.dinorah\Date and Time Signed: 01/13/24 00:45 EDT ED Patient Education Noteon 01-13-2024 ED Patient Education Note Infectious Disease Sore Throat When you have a sore throat, your throat may feel: ? Tender. ? Burning. ? Irritated. ? Scratchy. ? Painful when you swallow. ? Painful when you talk. Many things can cause a sore throat, such as: ? An infection. ? Allergies. ? Dry air. ? Smoke or pollution. ? Radiation treatment for cancer. ? Gastroesophageal reflux disease (GERD). ? A tumor. A sore throat can be the first sign of another sickness. It can happen with other problems, like: ? Coughing. ? Sneezing. ? Fever. ? Swelling of the glands in the neck. Most sore throats go away without treatment. Follow these instructions at home: Medicines ? Take dcvj-obr-vcrfgze and prescription medicines only as told by your doctor. ? Children often get sore throats. Do not give your child aspirin. ? Use throat sprays to soothe your throat as told by your health care provider. Managing pain To help with pain: ? Sip warm liquids, such as broth, herbal tea, or warm water. ? Eat or drink cold or frozen liquids, such as frozen ice pops. ? Rinse your mouth (gargle) with a salt water mixture 3?4 times a day or as needed. ? To make salt water, dissolve ??1 tsp (3?6 g) of salt in 1 cup (237 mL) of warm water. ? Do not swallow this mixture. ? Suck on hard candy or throat lozenges. ? Put a cool-mist humidifier in your bedroom at night. ? Sit in the bathroom with the door closed for 5?10 minutes while you run hot water in the shower. General instructions ? Do not smoke or use any products that contain nicotine or tobacco. If you need help quitting, ask your doctor. ? Get plenty of rest. ? Drink enough fluid to keep your pee (urine) pale yellow. ? Wash your hands often for at least 20 seconds with soap and water. If soap and water are not available, use hand bedspread folder. Contact a doctor if: ? You have a fever for more than 2?3 days. ? You keep having symptoms for more than 2?3 days. ? Your throat does not get better in 7 days. ? You have a fever and your symptoms suddenly get worse. ? Your child who is 3 months to 3 years old has a temperature of 102.2?F (39?C) or higher. Get help right away if: ? You have trouble breathing. ? You cannot swallow fluids, soft foods, or your spit. ? You have swelling in your throat or neck that gets worse. ? You feel like you may vomit (nauseous) and this feeling lasts a long time. ? You cannot stop vomiting. These symptoms may be an emergency. Get help right away. Call your local emergency services (911 in the [place] ? Do not wait to see if the symptoms will go away. ? Do not drive yourself to the hospital. Summary ? A sore throat is a painful, burning, irritated, or scratchy throat. Many things can cause a sore throat. ? Take qsei-hfc-pvwqtjm medicines only as told by your doctor. ? Get plenty of rest. ? Drink enough fluid to keep your pee (urine) pale yellow. ? Contact a doctor if your symptoms get worse or your sore throat does not get better within 7 days. This information is not intended to replace advice given to you by your health care provider. Make sure you discuss any questions you have with your health care provider. Document Revised: 10/10/2021 Document Reviewed: 10/10/2021 Elsevier Patient Education ? 2022 [employer] Normal [facility] ED Patient Summaryon 024 ED Patient Summary (Inserted Image. Paola ble to display) [address] [address] Patient Discharge Instructions Person Information Name: SCARLET DURAND Age: 24 Years Arrival Date: 01/12/2024 23:46:16 Discharge Diagnosis: Sore throat Primary Care Physician: DOREEN HA CNP Provider Information Primary Provider: Aleta Oliveira DO Advanced Food Service Associate:None The exam and treatment you received in the Emergency Department were for an urgent problem and are not intended as complete care. It is important that you follow up with a doctor, nurse practitioner, or physician?s web assistant for ongoing care. If your symptoms become worse or you do not improve as expected and you are unable to reach your usual health care provider, you should return to the Emergency Department. We are available 24 hours a day. SCARLET DURAND has been given the following list of patient education materials, prescriptions and follow-up instructions: Follow-up Instructions: With: Address: When: [place] [address] Business (1) In 3 days 01/16/2024 Comments: You can use ibuprofen, Tylenol every 6 hours as needed for pain. Please follow-up with your primary care doctor next 2 to 3 days for further evaluation management. Please return to the ED for any new or worsening symptoms. In the event that this physician does not participate in your insurance network, please consult with your insurance company to find a nearby participating provider. Patient Education Materials: Sore Throat, Fwdx-ke-Cwnf A MESSAGE TO ALL PATIENTS REGARDING OPIOIDS PRESCRIPTION OPIOIDS: WHAT YOU NEED TO KNOW Prescription opioids can be used to help relieve xzhswplv-hq-ccktxz pain and are often prescribed following a surgery or injury, or for certain health conditions. These medications can be an important part of the treatment but also come with serious risks. It is important to work with your healthcare provider to make sure you are getting the safest, most effective care. WHAT ARE THE RISKS AND SIDE EFFECTS OF OPIOID USE? Prescription opioids carry serious risks of addiction and overdose, especially with prolonged use. An opioid overdose, often marked by slowed breathing, can cause sudden . The use of prescription opioids can have a number of side effects as well, even when taken as directed: ? Tolerance?meaning you might need to take more of the medication for the same pain relief ? Physical dependence?meaning you have symptoms of withdrawal when a medication is stopped ? Increased sensitivity to pain ? Constipation ? Nausea, vomiting, and dry mouth ? Sleepiness and dizziness ? Confusion ? Depression ? Low levels of testosterone that can result in lower sex drive, energy, and strength ? Itching and sweating RISKS ARE GREATER WITH: ? History of drug misuse, substance use disorder, or overdose ? Mental health conditions (such as depression or anxiety) ? Sleep apnea ? Older age (65 years and older) ? Avoid alcohol while taking prescription opioids. Also, unless specifically advised by your health care provider, medications to avoid include: ? Benzodiazepines (such as Xanax or Valium) ? Muscle relaxants (such as Soma or Flexeril) ? Hypnotics (such as Ambien or Lunesta) ? Other prescription opioids KNOW YOUR OPTIONS Talk to your health care provider about ways to manage your pain that don?t involve prescription opioids. Some of these options may actually work better and have fewer risks and side effects. Options may include: ? Pain relievers such as acetaminophen, ibuprofen, and naproxen ? Some medication that are also used for depression or seizures ? Physical therapy and exercise ? Cognitive behavioral therapy, a psychological, goal-directed approach, in which patients learn how to modify physical, behavioral, and emotional triggers of pain and stress. IF YOU ARE PRESCRIBED OPIOIDS FOR PAIN: ? Never take opioids in greater amounts or more often than prescribed. ? Follow up with your primary health care provider. o Work together to create a plan on how to manage your pain. o Talk about ways to help manage your pain that don?t involve prescription opioids. o Talk about any and all concerns and side effects. ? Help prevent misuse and abuse o Never sell or share prescription opioids. o Never use another person?s prescription opioids. ? Store prescription opioids in a secure place and out of reach of others (this may include visitors, children, friends, and family). ? Safely dispose of unused prescription opioids: Find your community drug take-back program or your pharmacy mail-back program, or flush them down the toilet, following guidance from the Food and Drug Administration (www.fda.gov/Drugs/Reso urcesForYou). ? Visit www.cdc.gov/drugoverdos e to learn a (more content not included)... [facility] Grp A Strp PCRon 01-13-2024 Grp A Strp Intrl Ctrl Pass Normal Fis [facility] Comment on above: Order Comment: Order Added on by Discern Rule. Performed By: #### 1 [id number] #### [facility] [address] [place] [address] S. pyogenes DNA RENÉE+probe Ql (Throat) Negative Normal [facility] Comment on above: Order Comment: Order Added on by Discern Rule. Result Comment: Test ing performed using DNA amplification. Performed By: #### 1 [id number] #### [facility] [address] [place] [address] MICRO OTHER TESTSOrdered By: Joann Mendez on 01-13-2024 S. pyogenes Ag IA.rapid Ql (Throat) Negative (01/13/24 12:23 AM) Normal Negative [facility] Man Sero Prescriptions/Work Noteson 0 01-13-2024 Prescriptions/Work Notes [id number] IFF Normal [facility] Rapid Strep w/rfxon 01-13-20 24 S. pyogenes Ag [place].rapid Ql (Throat) Negative Normal Negative [facility] Comment on above: Performed By: #### 2 [id number] #### [facility] [address] [place] [address] Consent for Treatmenton 12-26 Consent for Treatment [id number] IFF Normal [facility] Discharge Instructionson Discharge Instructions [id number] TIFF Normal [facility] ED Clinical Summaryon 2023 ED Clinical Summary (Inserted Image. Paola ble to display) [address] [address] ED Clinical Summary Person Information Name: ROMELIA, SCARLET [place] Age: 24 Years : 2000 Sex: Female Language: Tuvaluan PCP: DOREEN HA CNP Marital Status: Phone: [phone] Visit Id: Visit Reason: Hip pain-swelling; Leg pain-swelling; Knee pain-swelling; right leg and hip pain Speciality: Acuity: 4 Enc Type: Emergency Med Service: Emergency Arrival: 2024 23:13:12 Discharge: 01/07/2024 00:52:45 LOS: 000 01:39 Checkin: 2024 23:13:12 Checkout: 01/07/2024 00:52:45 Dispo Type: Home (Routine DC) EVENTS: Event Name Event Status Request Date/Time Start Date/Time Complete Date/Time Arrive Complete 2024 23:13:12 2024 23:13:12 2024 23:13:12 Document Home Meds Request 2024 23:13:12 Triage Complete 2024 23:13:12 2024 23:23:06 2024 23:23:06 Registration Complete 2024 23:17:44 2024 23:17:44 2024 23:17:44 Reg Complete Request 2024 23:17:44 Reg Bed Request Complete 2024 23:17:44 2024 23:17:44 2024 23:17:44 Bed Assign Complete 2024 23:23:27 2024 23:23:27 2024 23:23:27 Dr Exam Complete 2024 23:23:27 2024 23:42:11 2024 23:42:11 RN Exam Complete 2024 23:23:27 2024 23:36:46 2024 23:36:46 X-Ray Complete 2024 23:34:11 2024 23:59:19 01/07/2024 00:11:06 Registration Request 2024 23:42:11 Wet Read Request 01/07/2024 00:11:06 Discharge Complete 01/07/2024 00:38:23 01/07/2024 00:52:50 01/07/2024 00:52:50 Patient Care Complete 01/07/2024 00:40:18 01/07/2024 00:51:55 Transfer Complete 01/07/2024 00:52:50 01/07/2024 00:52:50 01/07/2024 00:52:50 ADDRESS: [address] [facility] [id number] PHYS DOC NOTES: MEDICAL INFORMATION: Prescriptions Given: Medications to Continue with No Changes Other Medications ibuprofen (ibuprofen 600 mg Tab) 1 Tablets By Mouth every 6 hours. Refills: 0. multivitamin, ( Multivitamins with Folic Acid 1.25 mg oral tablet) naproxen (Naprosyn 500 mg Tab) 1 Tablets By Mouth 2 times a day. Refills: 0. naproxen (Naprosyn 500 mg Tab) 1 Tablets By Mouth 2 times a day as needed for pain. Refills: 0. naproxen (naproxen 500 mg Tab) 1 Tablets By Mouth 2 times a day. Take one tab by mouth two times a day. Refills: 0. ondansetron (Zofran ODT 4 mg Tab-Dis) 1 Tablets By Mouth 3 times a day. Refills: 0. ondansetron (Zofran ODT 4 mg Tab-Dis) 1 Tablets By Mouth every 8 hours as needed Nausea/Vomiting. Refills: 0. ondansetron (Zofran ODT 4 mg Tab-Dis) 1 Tablets By Mouth every 8 hours. Refills: 0. sulfamethoxazole-trimet hoprim (Bactrim D.S. 800 mg-160 mg Tab) 1 Tablets By Mouth 2 times a day. Refills: 0. PATIENT EDUCATION INFORMATION: Instructions: How to Use a Knee Immobilizer; Knee Sprain, Adult Follow up: With: Address: When: [place] [address] [employer] ([employer] In 3 days 01/10/2024 Comments: Call the office of your primary care doctor to arrange for follow-up within the above-stated timeframe. Follow-up with your primary care doctor about this ED visit. You should review your labs, imaging, and diagnoses from this ED visit with your primary care physician. There are occasionally non-emergent findings that require additional follow-up after your ED visit. If you were prescribed medications you should discuss possible side-effects and drug interactions with your pharmacist. Call 911 or go to the nearest Emergency Department if you develop any new or worsening symptoms. Rest, ice, elevate the knee. Continue to wear knee immobilizer if you have feeling of instability in the knee. Follow-up with orthopedic surgery. DIAGNOSIS: Knee sprain Normal [facility] ED Note-Nursingon 01-07-2024 ED Note-Nursing [id number] TIFF Normal [facility] ED Note-Physicianon 01-07-20 ED Note-Physician Basic Information Time Seen: Kervin VERMA Bi MinorJp 2024 23:42 Chief Complaint states twisted right knee tonight. pain shooting to right hip area History of Present Illness 24-year-old female to the emergency department chief complaint of injury to her right knee. Patient reports that they are doing some moving this evening. She stepped down and twisted on her right knee. She reports she has pain in the area of her right knee now. Is worse with movement and ambulation. She reports it feels mildly unstable when she stands up. Review of Systems A 10 point review of systems is negative except as noted above. Medical and Surgical History: Reviewed and noted Social history: Lives at home Tobacco: Denies Physical Exam Vitals & Measurements T: 36.7 ?C(Oral) HR: 114(Peripheral) RR: 20 BP: 116/71 SpO2: 98% HT: 162 cm WT: 121.6 kg BMI: 46.33 VITALS: I have reviewed the triage vital signs. GENERAL: Well developed, well appearing adult in no acute distress. NEURO: Alert and oriented. Moves all extremities. Face is symmetric and expressive. EYES: PERRL. No scleral icterus or conjunctival injection. No discharge. HENT: Normocephalic, atraumatic. Hearing is grossly intact. Nares grossly patent and without discharge. Mucous membranes moist. NECK: No JVD. Patient moves neck without restriction. Right lower Extremity: DP and PT pulses intact. Limb is similar color and temperature to the contralateral limb. No swelling. No ecchymosis. Able to bear weight. Sensation is intact over the foot and lower leg. Dorsiflexion/plantar flexion, knee flexion/extension, hip flexion/extension are grossly intact by strength testing. No appreciable instability in the knee. Compartments are soft. SKIN: Warm and dry. Normal turgor. No rash or lesions appreciated. PSYCH: Mood, affect, and interaction is appropriate to the setting. Medical Decision Making 44-year-old female to the emergency department chief complaint of pain in her knee after twisting injury. Vital stable, the patient is afebrile. Right lower extremity is neurovascularly intact. She declines any pain medication. X-ray without any acute findings. Given the reported instability and apprehension will place in knee immobilizer. Work note given. Orthopedic follow-up given. Return precautions were discussed. All questions were answered. The patient was discharged home. Assessment/Plan Knee sprain (S83.90XA: Sprain of unspecified site of unspecified knee, initial encounter) Orders: Immobilizer XR Knee Complete 4+ Views Right Disposition Plan Patient Discharge Condition Stable Discharge Disposition Home Discharge Prescription List Prescriptions No active prescription medications Follow-up With When Contact Information Khari Gomez In 3 days 01/10/2024 EDT [address] [place] [address]- Business (1) Additional Instructions: Call the office of your primary care doctor to arrange for follow-up within the above-stated timeframe. Follow-up with your primary care doctor about this ED visit. You should review your labs, imaging, and diagnoses from this ED visit with your primary care physician. There are occasionally non-emergent findings that require additional follow-up after your ED visit. If you were prescribed medications you should discuss possible side-effects and drug interactions with your pharmacist. Call 911 or go to the nearest Emergency Department if you develop any new or worsening symptoms. Rest, ice, elevate the knee. Continue to wear knee immobilizer if you have feeling of instability in the knee. Follow-up with orthopedic surgery. Patient Education How to Use a Knee Immobilizer Knee Sprain, Adult Problem List/Past Medical History Ongoing Adult BMI 40.0-44.9 kg/sq m Anxiety and depression Back pain with radiculopathy Bilateral arm pain Bipolar 1 disorder, mixed, moderate BMI 45.0-49.9, adult Class 3 severe obesity due to excess calories with body mass index (BMI) of 40.0 to 44.9 in adult Fatigue GDM (gestational diabetes mellitus) Marijuana use Mental disorder in , antepartum Morbid obesity Neuropathy Obesity complicating , second trimester PTSD (post-traumatic stress disorder) Shoulder pain, bilateral Smoker Supervision of high risk in second trimester Historical Amenorrhea Anxiety Bipolar Contraceptive management Depression None Smoker 27-JAN-2014 12:37:00<$> Procedure/Surgical History None. Medications Inpatient No active inpatient medications Home Bactrim D.S. 800 mg-160 mg Tab, 1 tab(s), Oral, BID ibuprofen 600 mg Tab, 600 mg= 1 tab(s), Oral, q6hr Naprosyn 500 mg Tab, 500 mg= 1 tab(s), Oral, BID Naprosyn 500 mg Tab, 500 mg= 1 tab(s), Oral, BID, PRN naproxen 500 mg Tab, 500 mg= 1 tab(s), Oral, BID Multivitamins with Folic Acid 1.25 mg oral tablet Zofran ODT 4 mg Tab-Dis, 4 mg= 1 tab(s), Oral, (more content not included)... Normal [facility] Comment on above: Result Comment: Elec tronically Signed By: Bi Galeana DO\.br\Date and Time Signed: 01/07/24 02:20 EDT ED Patient Education Noteon 01-07-2024 ED Patient Education Note Orthopedics How to Use a Knee Immobilizer A knee immobilizer is a device used to support and protect an injured or painful knee. You may also have to wear it after knee surgery. A knee immobilizer keeps your knee from moving or bending while it is healing. Wear the immobilizer as told by your health care provider. Remove it only as told by your health care provider. In general, your immobilizer should: ? Have straps, hooks, or tapes that fasten snugly around your leg. ? Not feel too tight or too loose. What are the risks? Generally, knee immobilizers are safe to wear. However, problems may occur, including: ? Skin irritation. This may lead to an infection, in rare cases. ? Making your condition worse. This could happen if you wear the immobilizer in the wrong way. How to use a knee immobilizer Different immobilizers will have different instructions for use. Your health care provider will show you or tell you: ? How to put on your immobilizer. ? How to adjust your immobilizer. ? When and how often to wear your immobilizer. ? How to remove your immobilizer. ? If you will need any assistive devices in addition to your immobilizer, such as crutches or a cane. Follow these instructions at home: Bathing ? If the immobilizer is not waterproof: ? Do not let it get wet. ? Cover it with a watertight covering when you take a bath or shower. ? If your health care provider says that you may remove the immobilizer: ? Take it off before bathing or showering. ? Check for any skin irritation. ? Use a towel to dry the area completely before you put the immobilizer back on. Managing pain, stiffness, and swelling ? Raise (elevate) the injured area above the level of your heart while you are sitting or lying down. Doing this reduces throbbing and swelling, and helps with healing. You can use pillows for support. ? Loosen the immobilizer if you notice symptoms or signs that it is too tight, such as: ? Swelling. ? Tingling in your toes. ? Numbness. ? Color change on your foot or ankle. ? More pain. Infection signs Check any irritations, incisions, or cuts on your skin under the immobilizer every day for signs of infection. Check for: ? More redness, swelling, or pain. ? Fluid or blood. ? Warmth. ? Pus or a bad smell. General instructions ? Keep the immobilizer clean and dry. ? Return to your normal activities as told by your health care provider. Ask your health care provider what activities are safe for you. ? Check the skin around the immobilizer every day. Tell your health care provider about any concerns. ? Follow your health care provider's instructions about whether you can put any weight on your injured leg. Use crutches or a cane as told. ? Keep all follow-up visits. This is important. Contact a health care provider if: ? Your knee immobilizer breaks or needs to be replaced. ? You have more pain or swelling in your knee, foot, or ankle. ? Your knee immobilizer is not helping. ? Your knee immobilizer makes your knee pain worse. ? You have any signs of infection of the skin under the immobilizer. Summary ? A knee immobilizer is used to support and protect an injured or painful knee. You may also have to wear it after knee surgery. ? A knee immobilizer keeps your knee from moving or bending while it is healing. ? Different immobilizers will have different instructions for use. Follow the instructions from your health care provider. ? Contact your health care provider if you have more swelling or pain, if your knee immobilizer breaks, if your knee immobilizer does not help your knee pain or makes pain worse, or if you have any signs of infection. This information is not intended to replace advice given to you by your health care provider. Make sure you discuss any questions you have with your health care provider. Document Revised: 04/19/2022 Document Reviewed: 04/19/2022 [employer] Patient Education ? 2022 [employer] Knee Sprain, Adult A knee sprain is a stretch or tear in a knee ligament. Knee ligaments are tissues that connect bones in the knee to each other. What are the causes? This condition often results from: ? A fall. ? An injury to the knee. What are the signs or symptoms? Symptoms of this condition include: ? Trouble straightening or bending the leg. ? Swelling in the knee. ? Bruising around the knee. ? Tenderness or pain in the knee. ? Muscle spasms around the knee. How is this diagnosed? This condition may be diagnosed based on: ? A physical exam. ? A history of what happened just before you started to have symptoms. ? Tests, including: ? An X-ray. This may be done to make sure no bones are broken. ? An MRI. This may be done to check if the ligament is torn. ? Stress testing of the knee. This may be done to check ligament damage. How is this treated? Treatment for this condition (more content not included)... Normal [facility] ED Patient Summaryon 024 ED Patient Summary (Inserted Image. Paola ble to display) [place] [id number] Patient Discharge Instructions Person Information Name: SCARLET DURAND Age: 24 Years Arrival Date: 2024 23:13:12 Discharge Diagnosis: Knee sprain Primary Care Physician: DOREEN HA CNP Provider Information Primary Provider: Bi Galeana DO Advanced Food Service Associate:None The exam and treatment you received in the Emergency Department were for an urgent problem and are not intended as complete care. It is important that you follow up with a doctor, nurse practitioner, or physician?s web assistant for ongoing care. If your symptoms become worse or you do not improve as expected and you are unable to reach your usual health care provider, you should return to the Emergency Department. We are available 24 hours a day. ROMELIA SCARLET Bolden has been given the following list of patient education materials, prescriptions and follow-up instructions: Follow-up Instructions: With: Address: When: Khari Gomez [address] [place] [address] [phone] [employer] ([facility] In 3 days 01/10/2024 Comments: Call the office of your primary care doctor to arrange for follow-up within the above-stated timeframe. Follow-up with your primary care doctor about this ED visit. You should review your labs, imaging, and diagnoses from this ED visit with your primary care physician. There are occasionally non-emergent findings that require additional follow-up after your ED visit. If you were prescribed medications you should discuss possible side-effects and drug interactions with your pharmacist. Call 911 or go to the nearest Emergency Department if you develop any new or worsening symptoms. Rest, ice, elevate the knee. Continue to wear knee immobilizer if you have feeling of instability in the knee. Follow-up with orthopedic surgery. In the event that this physician does not participate in your insurance network, please consult with your insurance company to find a nearby participating provider. Patient Education Materials: How to Use a Knee Immobilizer; Knee Sprain, Adult A MESSAGE TO ALL PATIENTS REGARDING OPIOIDS PRESCRIPTION OPIOIDS: WHAT YOU NEED TO KNOW Prescription opioids can be used to help relieve ixvkuihc-ys-dgjeys pain and are often prescribed following a surgery or injury, or for certain health conditions. These medications can be an important part of the treatment but also come with serious risks. It is important to work with your healthcare provider to make sure you are getting the safest, most effective care. WHAT ARE THE RISKS AND SIDE EFFECTS OF OPIOID USE? Prescription opioids carry serious risks of addiction and overdose, especially with prolonged use. An opioid overdose, often marked by slowed breathing, can cause sudden . The use of prescription opioids can have a number of side effects as well, even when taken as directed: ? Tolerance?meaning you might need to take more of the medication for the same pain relief ? Physical dependence?meaning you have symptoms of withdrawal when a medication is stopped ? Increased sensitivity to pain ? Constipation ? Nausea, vomiting, and dry mouth ? Sleepiness and dizziness ? Confusion ? Depression ? Low levels of testosterone that can result in lower sex drive, energy, and strength ? Itching and sweating RISKS ARE GREATER WITH: ? History of drug misuse, substance use disorder, or overdose ? Mental health conditions (such as depression or anxiety) ? Sleep apnea ? Older age (65 years and older) ? Avoid alcohol while taking prescription opioids. Also, unless specifically advised by your health care provider, medications to avoid include: ? Benzodiazepines (such as Xanax or Valium) ? Muscle relaxants (such as Soma or Flexeril) ? Hypnotics (such as Ambien or Lunesta) ? Other prescription opioids KNOW YOUR OPTIONS Talk to your health care provider about ways to manage your pain that don?t involve prescription opioids. Some of these options may actually work better and have fewer risks and side effects. Options may include: ? Pain relievers such as acetaminophen, ibuprofen, and naproxen ? Some medication that are also used for depression or seizures ? Physical therapy and exercise ? Cognitive behavioral therapy, a psychological, goal-directed approach, in which patients learn how to modify physical, behavioral, and emotional triggers of pain and stress. IF YOU ARE PRESCRIBED OPIOIDS FOR PAIN: ? Never take opioids in greater amounts or more often than prescribed. ? Follow up with your primary health care provider. o Work together to create a plan on how to manage your pain. o Talk about ways to help manage your pain that don?t involve prescription opioids. o Talk about any and all concerns and side effects. ? Help prevent misuse and abuse o Never se (more content not included)... Normal [facility] XR Knee Complete 4+ Views Grace ganga 01-07-2024 XR Knee Complete 4+ Views Right Exam Date/Time: 01/07/2024 00:11 EDT Reason for Exam: Pain, Traumatic Report IMPRESSION: No acute osseous findings. EXAMINATION/TECHNIQUE: XR Knee Complete 4+ Views Right HISTORY: Right knee pain. Twisting injury. COMPARISON: 07/23/2018. RESULT: No evidence for acute fracture. No dislocation. No joint effusion. Joint spaces appear maintained. Mild soft tissue edema. No other significant abnormality. Ordering Provider: Bi Galeana FINAL REPORT Dictated: 01/07/2024 10:37 am Edmond Newby MD Signed (Electronic Signature): 01/07/2024 10:37 am Signed by: Edmond Newby MD Transcribed by: SURINDER Technologist: MARY ALICE Technical Comments Radiation Dose: Ka,r in mGy = na DAP = na Normal [facility] Consent for Treatmenton 12-26 Consent for Treatment [id number] IFF Normal [facility] Consent for Treatmenton 08-29 Consent for Treatment [id number] IFF Normal [facility] Discharge Instructionson Discharge Instructions [id number] IFF Normal [facility] ED Clinical Summaryon 2023 ED Clinical Summary (Inserted Image. Paola ble to display) [place] [id number] ED Clinical Summary Person Information Name: SCARLET DURAND [facility] Age: 23 Years : 2000 Sex: Female Language: Tuvaluan PCP: DOREEN HA CNP Marital Status: Phone: [phone] Visit Id: Visit Reason: Fever; Vomiting; Nausea; Headache; VOMITING, BODY ACHES, EAR PAIN Speciality: Acuity: 3 Enc Type: Emergency Med Service: Emergency Arrival: 09/23/2023 08:35:20 Discharge: 09/23/2023 11:26:58 LOS: 000 02:51 Checkin: 09/23/2023 08:35:20 Checkout: 09/23/2023 11:26:58 Dispo Type: Home (Routine DC) EVENTS: Event Name Event Status Request Date/Time Start Date/Time Complete Date/Time Arrive Complete 09/23/2023 08:35:20 09/23/2023 08:35:20 09/23/2023 08:35:20 Document Home Meds Request 09/23/2023 08:35:20 Triage Complete 09/23/2023 08:35:20 09/23/2023 08:58:13 09/23/2023 08:58:13 Bed Assign Complete 09/23/2023 08:47:43 09/23/2023 08:47:43 09/23/2023 08:47:43 Dr Exam Complete 09/23/2023 08:47:43 09/23/2023 08:47:58 09/23/2023 08:47:58 RN Exam Complete 09/23/2023 08:47:43 09/23/2023 09:33:17 09/23/2023 09:33:17 Registration Complete 09/23/2023 08:47:58 09/23/2023 09:25:24 09/23/2023 09:25:24 Dr Exam Complete 09/23/2023 08:48:00 09/23/2023 08:48:00 09/23/2023 08:48:00 Meds Admin Complete 09/23/2023 08:56:04 09/23/2023 09:35:49 Reg Complete Request 09/23/2023 09:25:24 Reg Bed Request Complete 09/23/2023 09:25:24 09/23/2023 09:25:24 09/23/2023 09:25:24 Discharge Complete 09/23/2023 11:03:16 09/23/2023 11:27:04 09/23/2023 11:27:04 Meds Admin Complete 09/23/2023 11:04:11 09/23/2023 11:17:22 Transfer Complete 09/23/2023 11:27:04 09/23/2023 11:27:04 09/23/2023 11:27:04 ADDRESS: [address] [place] [address] [address] [facility] [phone] PHYS DOC NOTES: MEDICAL INFORMATION: Prescriptions Given: New Medications [facility], [address] [place], [place] [id number], [phone] dextromethorphan-promet hazine (dextromethorphan-prome thazine 15 mg-6.25 mg/5 mL Oral Syrup 5 mL) 5 Milliliter By Mouth every 6 hours as needed for cough for 5 Days. Refills: 0. Medications to Continue Taking That Have Changed [facility], [address] [place] [id number], [phone] START: ondansetron (Zofran ODT 4 mg Tab-Dis) 1 Tablets By Mouth 3 times a day. Refills: 0. Other Medications START: ondansetron (Zofran ODT 4 mg Tab-Dis) 1 Tablets By Mouth every 8 hours as needed Nausea/Vomiting. Refills: 0. START: ondansetron (Zofran ODT 4 mg Tab-Dis) 1 Tablets By Mouth every 8 hours. Refills: 0. Medications to Continue with No Changes Other Medications ibuprofen (ibuprofen 600 mg Tab) 1 Tablets By Mouth every 6 hours. Refills: 0. multivitamin, ( Multivitamins with Folic Acid 1.25 mg oral tablet) naproxen (Naprosyn 500 mg Tab) 1 Tablets By Mouth 2 times a day. Refills: 0. naproxen (Naprosyn 500 mg Tab) 1 Tablets By Mouth 2 times a day as needed for pain. Refills: 0. naproxen (naproxen 500 mg Tab) 1 Tablets By Mouth 2 times a day. Take one tab by mouth two times a day. Refills: 0. sulfamethoxazole-trimet hoprim (Bactrim D.S. 800 mg-160 mg Tab) 1 Tablets By Mouth 2 times a day. Refills: 0. PATIENT EDUCATION INFORMATION: Instructions: Viral Illness, Adult Follow up: With: Address: When: DOREEN Juarez [address] [place] [address] Business (1) In 3 days 09/26/2023 DIAGNOSIS: Flu-like symptoms; Vomiting Normal [facility] ED Note-Physicianon 09-23-19 ED Note-Physician Basic Information Time Seen: Ashley Faustin M.D. 09/23/2023 08:47 Chief Complaint fever last night, hurts to take a deep breath. headache, n/v. History of Present Illness 23-year-old female comes to the ED for evaluation of flulike symptoms. Symptoms started yesterday with congestion, ear pain, sore throat, cough. States other members of the household has similar symptoms. Primary reason coming to the ED today is nausea and vomiting. She describes posttussive emesis with her sinus congestion. No abdominal pain. No chest pain. She had fevers last night. No treatments prior to arrival today. Review of Systems A 10 point review of systems is negative except as noted above. Medical and Surgical History: Reviewed and noted Social history: Lives at home Tobacco: Denies Physical Exam Vitals & Measurements T: 37.5 ?C(Oral) HR: 120(Peripheral) RR: 20 BP: 124/76 SpO2: 98% HT: 162 cm WT: 121.6 kg BMI: 46.33 Nurses notes and vital signs reviewed and patient is not hypoxic. General: Well-appearing, does not appear ill Skin: Warm, dry. Head: Atraumatic. Neck: No JVD. Eye: Normal conjunctiva. Ears, Nose, Mouth, and Throat: Sinus congestion, no difficulty with speaking or swallowing. TMs are clear. No pharyngeal erythema. Cardiovascular: Strong peripheral pulses Chest wall: Respiratory: Respirations are nonlabored. Back: Normal range of motion. Musculoskeletal: Normal ROM with no gross deformity. Gastrointestinal: Soft and nontender Urological: Neurological: Awake and alert. No focal deficits. Follows commands. Psychiatric: Cooperative. Medical Decision Making Patient presents with flulike symptoms. Other members of the household had similar symptoms. Her primary concern was for nausea and vomiting. She is given Zofran here. Take oral hydration well on repeat evaluation. No abdominal pain. No chest pain or shortness of breath. She be discharged home with Phenergan DM as well as Zofran ODT. She is to follow-up with her PCP. Patient was encouraged to return to the ED if symptoms worsen or change. Assessment/Plan Flu-like symptoms (R68.89: Other general symptoms and signs) Vomiting (R11.10: Vomiting, unspecified) Orders: acetaminophen, 975 mg = 3 tab(s), Tab, Oral, Once, Stop date 09/23/23 11:04:00 EST, STAT, Start date 09/23/23 11:04:00 EST, 09/23/23 11:04:00 EST dextromethorphan-promet hazine, 5 mL, Oral, q6hr for cough for 5 day(s), 200 mL, Refill(s) 0, [facility], 162, cm, 09/23/23 8:58:00 EST, Height/Length Dosing, 121.6, kg, 09/23/23 8:58:00 EST, Weight Dosing ondansetron, 4 mg = 1 tab(s), Tab-Dis, Oral, Once, Stop date 09/23/23 8:55:00 EST, STAT, Start date 09/23/23 8:55:00 EST, 09/23/23 8:55:00 EST ondansetron, 4 mg = 1 tab(s), Oral, TID, # 15 tab(s), Refills(s) 0, Pharmacy: [facility], 162, cm, 09/23/23 8:58:00 EST, Height/Length Dosing, 121.6, kg, 09/23/23 8:58:00 EST, Weight Dosing Medications Administered Given acetaminophen 325 mg Tab, 975 mg, Oral Zofran ODT 4 mg Tab-Dis, 4 mg, Oral Disposition Plan Patient Discharge Condition Disposition: Discharged home Condition: Improved and stable Counseled: Patient and/or family were counseled to workup, results, treatment plan and follow-up recommendations Discharge Prescription List Prescriptions dextromethorphan-promet hazine 15 mg-6.25 mg/5 mL Oral Syrup 5 mL, 5 mL, Oral, q6hr, PRN Zofran ODT 4 mg Tab-Dis, 4 mg= 1 tab(s), Oral, TID Follow-up With When Contact Information DOREEN HA In 3 days 09/26/2023 [place] [address] Business (1) Additional Instructions: Patient Education Viral Illness, Adult Attestation I performed a substantive part of the MDM during the patient?s E/M visit. I personally made or approved the documented management plan and acknowledge its risk of complications. (Independent Interpretation) My (EKG/X-Ray/US/CT) interpretation as above. (Discussion) Management/test interpretation discussed with APC. This report was transcribed using voice recognition software. Every effort was made to ensure accuracy, however, inadvertently computerized billposter mistakes may be present. Appropriate healthcare PPE was used in evaluating this patient. Problem List/Past Medical History Ongoing Adult BMI 40.0-44.9 kg/sq m Anxiety and depression Back pain with radiculopathy Bilateral arm pain Bipolar 1 disorder, mixed, moderate BMI 45.0-49.9, adult Class 3 severe obesity due to excess calories with body mass index (BMI) of 40.0 to 44.9 in adult Fatigue GDM (gestational diabetes mellitus) Marijuana use Mental disorder in , antepartum Morbid obesity Neuropathy Obesity complicating , second trimester PTSD (post-traumatic stress disorder) Shoulder pain, bilateral Smoker Supervision of high risk in second trimester Historical Amenorrhea Anxiety Bipolar Contraceptive management De (more content not included)... Normal [facility] Comment on above: Result Comment: Elec tronically Signed By: Lukas Hernandez PA-C\.br\Date and Time Signed: 09/23/23 11:18 EST\.br\Electronically Co-Signed By: [place] Faustin M.D.\.br\Date and Time Co-Signed: 09/23/23 16:32 EST ED Patient Education Noteon 09-23-2023 ED Patient Education Note Infectious Disease Viral Illness, Adult Viruses are tiny germs that can get into a person's body and cause illness. There are many different types of viruses, and they cause many types of illness. Viral illnesses can range from mild to severe. They can affect various parts of the body. Short-term conditions that are caused by a virus include colds and the flu (influenza). Long-term conditions that are caused by a virus include herpes, shingles, and HIV (human immunodeficiency virus) infection. A few viruses have been linked to certain cancers. What are the causes? Many types of viruses can cause illness. Viruses invade cells in your body, multiply, and cause the infected cells to work abnormally or . When these cells , they release more of the virus. When this happens, you develop symptoms of the illness, and the virus continues to spread to other cells. If the virus takes over the function of the cell, it can cause the cell to divide and grow out of control. This happens when a virus causes cancer. Different viruses get into the body in different ways. You can get a virus by: ? Swallowing food or water that has come in contact with the virus (is contaminated). ? Breathing in droplets that have been coughed or sneezed into the air by an infected person. ? Touching a surface that has been contaminated with the virus and then touching your eyes, nose, or mouth. ? Being bitten by an insect or animal that carries the virus. ? Having sexual contact with a person who is infected with the virus. ? Being exposed to blood or fluids that contain the virus, either through an open cut or during a transfusion. If a virus enters your body, your body's defense system (immune system) will try to fight the virus. You may be at higher risk for a viral illness if your immune system is weak. What are the signs or symptoms? You may have these symptoms, depending on the type of virus and the location of the cells that it invades: ? Cold and flu viruses: ? Fever. ? Headache. ? Sore throat. ? Muscle aches. ? Stuffy nose (nasal congestion). ? Cough. ? Digestive system (gastrointestinal) viruses: ? Fever. ? Pain in the abdomen. ? Nausea. ? Diarrhea. ? Liver viruses (hepatitis): ? Loss of appetite. ? Tiredness. ? Skin or the white parts of your eyes turning yellow (jaundice). ? Brain and spinal cord viruses: ? Fever. ? Headache. ? Stiff neck. ? Nausea and vomiting. ? Confusion or sleepiness. ? Skin viruses: ? Warts. ? Itching. ? Rash. ? Sexually transmitted viruses: ? Discharge. ? Swelling. ? Redness. ? Rash. How is this diagnosed? This condition may be diagnosed based on one or more of the following: ? Symptoms. ? Medical history. ? Physical exam. ? Blood test, sample of mucus from your lungs (sputum sample), stool sample, or a swab of body fluids or a skin sore (lesion). How is this treated? Viruses can be hard to treat because they live within cells. Antibiotic medicines do not treat viruses because these medicines do not get inside cells. Treatment for a viral illness may include: ? Resting and drinking plenty of fluids. ? Medicines to relieve symptoms. These can include lkrk-asd-tzfwzqm medicine for pain and fever, medicines for cough or congestion, and medicines to relieve diarrhea. ? Antiviral medicines. These medicines are available only for certain types of viruses. Some viral illnesses can be prevented with vaccinations. A common example is the flu shot. Follow these instructions at home: Medicines ? Take ewcr-nxf-pefhgyy and prescription medicines only as told by your health care provider. ? If you were prescribed an antiviral medicine, take it as told by your health care provider. Do not stop taking the antiviral even if you start to feel better. ? Be aware of when antibiotics are needed and when they are not needed. Antibiotics do not treat viruses. You may get an antibiotic if your health care provider thinks that you may have, or are at risk for, a bacterial infection and you have a viral infection. ? Do not ask for an antibiotic prescription if you have been diagnosed with a viral illness. Antibiotics will not make your illness go away faster. ? Frequently taking antibiotics when they are not needed can lead to antibiotic resistance. When this develops, the medicine no longer works against the bacteria that it normally fights. General instructions ? Drink enough fluids to keep your urine pale yellow. ? Rest as much as possible. ? Return to your normal activities as told by your health care provider. Ask your health care provider what activities are safe for you. ? Keep all follow-up visits as told by your health care provider. This is important. How is this prevented? To reduce your risk of viral illness: ? Wash your hands often with soap and water for at least 20 seconds. If soap and water are (more content not included)... [facility] ED Patient Summaryon 024 ED Patient Summary (Inserted Image. Paola ble to display) [place] [id number] Patient Discharge Instructions Person Information Name: SCARLET DURAND Age: 23 Years Arrival Date: 09/23/2023 08:35:20 Discharge Diagnosis: Flu-like symptoms; Vomiting Primary Care Physician: DOREEN HA CNP Provider Information Primary Provider: Ramin Ham, [place] Advanced Food Service Associate:Lukas Hernandez PA-C The exam and treatment you received in the Emergency Department were for an urgent problem and are not intended as complete care. It is important that you follow up with a doctor, nurse practitioner, or physician?s web assistant for ongoing care. If your symptoms become worse or you do not improve as expected and you are unable to reach your usual health care provider, you should return to the Emergency Department. We are available 24 hours a day. SCARLET DURAND has been given the following list of patient education materials, prescriptions and follow-up instructions: Follow-up Instructions: With: Address: When: [address] [address] Business (1) In 3 days 09/26/2023 In the event that this physician does not participate in your insurance network, please consult with your insurance company to find a nearby participating provider. Patient Education Materials: Viral Illness, Adult A MESSAGE TO ALL PATIENTS REGARDING OPIOIDS PRESCRIPTION OPIOIDS: WHAT YOU NEED TO KNOW Prescription opioids can be used to help relieve efnnjpie-iz-ucouje pain and are often prescribed following a surgery or injury, or for certain health conditions. These medications can be an important part of the treatment but also come with serious risks. It is important to work with your healthcare provider to make sure you are getting the safest, most effective care. WHAT ARE THE RISKS AND SIDE EFFECTS OF OPIOID USE? Prescription opioids carry serious risks of addiction and overdose, especially with prolonged use. An opioid overdose, often marked by slowed breathing, can cause sudden . The use of prescription opioids can have a number of side effects as well, even when taken as directed: ? Tolerance?meaning you might need to take more of the medication for the same pain relief ? Physical dependence?meaning you have symptoms of withdrawal when a medication is stopped ? Increased sensitivity to pain ? Constipation ? Nausea, vomiting, and dry mouth ? Sleepiness and dizziness ? Confusion ? Depression ? Low levels of testosterone that can result in lower sex drive, energy, and strength ? Itching and sweating RISKS ARE GREATER WITH: ? History of drug misuse, substance use disorder, or overdose ? Mental health conditions (such as depression or anxiety) ? Sleep apnea ? Older age (65 years and older) ? Avoid alcohol while taking prescription opioids. Also, unless specifically advised by your health care provider, medications to avoid include: ? Benzodiazepines (such as Xanax or Valium) ? Muscle relaxants (such as Soma or Flexeril) ? Hypnotics (such as Ambien or Lunesta) ? Other prescription opioids KNOW YOUR OPTIONS Talk to your health care provider about ways to manage your pain that don?t involve prescription opioids. Some of these options may actually work better and have fewer risks and side effects. Options may include: ? Pain relievers such as acetaminophen, ibuprofen, and naproxen ? Some medication that are also used for depression or seizures ? Physical therapy and exercise ? Cognitive behavioral therapy, a psychological, goal-directed approach, in which patients learn how to modify physical, behavioral, and emotional triggers of pain and stress. IF YOU ARE PRESCRIBED OPIOIDS FOR PAIN: ? Never take opioids in greater amounts or more often than prescribed. ? Follow up with your primary health care provider. o Work together to create a plan on how to manage your pain. o Talk about ways to help manage your pain that don?t involve prescription opioids. o Talk about any and all concerns and side effects. ? Help prevent misuse and abuse o Never sell or share prescription opioids. o Never use another person?s prescription opioids. ? Store prescription opioids in a secure place and out of reach of others (this may include visitors, children, friends, and family). ? Safely dispose of unused prescription opioids: Find your community drug take-back program or your pharmacy mail-back program, or flush them down the toilet, following guidance from the Food and Drug Administration (www.fda.gov/Drugs/Reso urcesForYou). ? Visit www.cdc.gov/drugoverdos e to learn about the risks of opioids abuse and overdose. ? If you believe you may be struggling with addiction, tell your health care tech and ask for guidance or call SAMHSA?S National Helpline at 8-800-724- (more content not included)... [facility] Prescriptions/Work Noteson 0 09-23-2023 Prescriptions/Work Notes [id number] IFF [facility] Discharge Instructionson Discharge Instructions [id number] IFF [facility] Consent for Treatmenton 07-29 Consent for Treatment [id number] IFF [facility] ED Clinical Summaryon 2023 ED Clinical Summary (Inserted Image. Paola ble to display) [place] [id number] ED Clinical Summary Person Information Name: SCARLET DURAND [place] Age: 23 Years : 2000 Sex: Female Language: Tuvaluan PCP: DOREEN HA CNP Marital Status: Phone: [phone] Visit Id: Visit Reason: Ear pain; RIGHT ERA PAIN Speciality: Acuity: 4 Enc Type: Emergency Med Service: Emergency Arrival: 08/22/2023 22:11:28 Discharge: 08/22/2023 22:44:24 LOS: 000 00:33 Checkin: 08/22/2023 22:11:28 Checkout: 08/22/2023 22:44:24 Dispo Type: Home (Routine DC) EVENTS: Event Name Event Status Request Date/Time Start Date/Time Complete Date/Time Arrive Complete 08/22/2023 22:11:28 08/22/2023 22:11:28 08/22/2023 22:11:28 Document Home Meds Request 08/22/2023 22:11:28 Triage Complete 08/22/2023 22:11:28 08/22/2023 22:19:09 08/22/2023 22:19:09 Registration Complete 08/22/2023 22:12:57 08/22/2023 22:12:57 08/22/2023 22:12:57 Reg Complete Request 08/22/2023 22:12:57 Reg Bed Request Complete 08/22/2023 22:12:57 08/22/2023 22:12:57 08/22/2023 22:12:57 Dr Exam Complete 08/22/2023 22:13:13 08/22/2023 22:13:13 08/22/2023 22:13:13 Registration Start 08/22/2023 22:13:13 08/22/2023 22:15:54 Dr Exam Complete 08/22/2023 22:13:26 08/22/2023 22:13:26 08/22/2023 22:13:26 Bed Assign Complete 08/22/2023 22:15:54 08/22/2023 22:15:54 08/22/2023 22:15:54 RN Exam Complete 08/22/2023 22:15:54 08/22/2023 22:22:23 08/22/2023 22:22:23 Meds Admin Complete 08/22/2023 22:25:02 08/22/2023 22:42:05 Discharge Complete 08/22/2023 22:25:55 08/22/2023 22:45:27 08/22/2023 22:45:27 Transfer Complete 08/22/2023 22:45:27 08/22/2023 22:45:27 08/22/2023 22:45:27 ADDRESS: [facility] [address] [facility] [phone] PHYS DOC NOTES: MEDICAL INFORMATION: Prescriptions Given: New Medications [facility], [address] [place], [place] [id number], [phone] amoxicillin-clavulanate (Augmentin 875 mg-125 mg Tab) 1 Tablets By Mouth every 12 hours for 10 Days. Refills: 0. Medications to Continue with No Changes Other Medications ibuprofen (ibuprofen 600 mg Tab) 1 Tablets By Mouth every 6 hours. Refills: 0. multivitamin, ( Multivitamins with Folic Acid 1.25 mg oral tablet) naproxen (Naprosyn 500 mg Tab) 1 Tablets By Mouth 2 times a day. Refills: 0. naproxen (Naprosyn 500 mg Tab) 1 Tablets By Mouth 2 times a day as needed for pain. Refills: 0. naproxen (naproxen 500 mg Tab) 1 Tablets By Mouth 2 times a day. Take one tab by mouth two times a day. Refills: 0. ondansetron (Zofran ODT 4 mg Tab-Dis) 1 Tablets By Mouth every 8 hours as needed Nausea/Vomiting. Refills: 0. ondansetron (Zofran ODT 4 mg Tab-Dis) 1 Tablets By Mouth every 8 hours. Refills: 0. sulfamethoxazole-trimet hoprim (Bactrim D.S. 800 mg-160 mg Tab) 1 Tablets By Mouth 2 times a day. Refills: 0. PATIENT EDUCATION INFORMATION: Instructions: Otitis Media, Adult Follow up: With: Address: When: DOREEN LELAND [address] [place] [address] [employer] (1) In 3 days 08/25/2023 Comments: Follow-up with your primary care provider in 3 to 5 days. If symptoms worsen, do not improve, or new symptoms arise please report back to emergency department for further evaluation. DIAGNOSIS: Left otitis media [facility] ED Note-Physicianon 08-22-19 ED Note-Physician Basic Information Time Seen: Aleta Oliveira DO 08/22/2023 22:13 Chief Complaint left ear pain that started a couple days ago. says hearing is muffled on that side History of Present Illness A 23-year-old female reports to the emergency department chief complaint of left ear pain. Reports is been going on for couple days. Reports muffled hearing on that side. Reports recently got over a viral infection. States the left ear is only thing is hurting. Denies any known allergies. Review of Systems A 10 point review of systems is negative except as noted above. Medical and Surgical History: Reviewed and noted Social history: Lives at home Family History: Reviewed. Tobacco: Denies, former Physical Exam Vitals & Measurements T: 37.2 ?C(Oral) HR: 98(Peripheral) RR: 18 BP: 132/83 SpO2: 98% HT: 162 cm WT: 122.4 kg BMI: 46.64 General: The patient appears well and in no apparent distress. Patient is resting comfortably in chair. Afebrile Skin: Warm, dry, no pallor noted. Head: Normocephalic, atraumatic Neck: No JVD Eye: PERRLA, EOMI ENT: Moist mucus membranes. Left side TM is erythematous and bulging. Right side TM clear. Pharynx pink moist no erythema exudates Cardiovascular: Regular rate normal peripheral perfusion Respiratory: No respiratory distress no accessory muscle use no obvious audible wheezing Chest Wall: no deformity Musculoskeletal: normal ROM, no deformity, no swelling GI: No obvious distention Neurological: A&O moves all extremities equal strength and symmetry Psychiatric: Cooperative and appropriate Medical Decision Making MEDICAL DECISION MAKING Number and Complexity of Problems Differential Diagnosis: [] [facility] Data External documents reviewed: [] My EKG interpretation: [] My CT interpretation: [] My X-ray interpretation: [] My Ultrasound interpretation: [] Decision rules/scores evaluated: [] Discussed with: [] Treatment and Disposition ED Course: 23-year-old female report to the emergency department with a chief complaint of left-sided ear pain. Reports been hurting her for the last couple days. Reports just got over an illness. Reports having worsening pain and decreased hearing on the side. On physical exam, patient is afebrile resting comfortably in the chair. She does have left-sided Britton media on exam. Right ear is okay. No other signs of infection. Due to concerns, patient started on Augmentin. Given first dose here in the emergency department. Discussed return precautions. Discussed finishing course of antibiotics. Follow-up with your primary care provider in 3 to 5 days. If symptoms worsen, do not improve, or new symptoms arise please report back to emergency department for further evaluation. The patient was understanding and agreeable to plan moving forward. Shared decision making: [] Code status: [] Assessment/Plan Left otitis media (H66.92: Otitis media, unspecified, left ear) Orders: amoxicillin-clavulanate , 1 tab(s), Oral, q12hr for 10 day(s), 20 tab(s), Refill(s) 0, [facility], 162, cm, 08/22/23 22:19:00 EST, Height/Length Dosing, 122.4, kg, 08/22/23 22:19:00 EST, Weight Dosing amoxicillin-clavulanate , 1 tab(s), Tab, Oral, Once, Stop date 08/22/23 22:24:00 EST, STAT, Start date 08/22/23 22:24:00 EST Disposition Plan Patient Discharge Condition Stable Discharge Disposition To home Discharge Prescription List Prescriptions Augmentin 875 mg-125 mg Tab, 1 tab(s), Oral, q12hr Follow-up With When Contact Information DOREEN HA In 3 days 08/25/2023 EST [address] [place] [address]- Business (1) Additional Instructions: Follow-up with your primary care provider in 3 to 5 days. If symptoms worsen, do not improve, or new symptoms arise please report back to emergency department for further evaluation. Patient Education Otitis Media, Adult Attestation Patient seen and evaluated by the physician web assistant. Attending physician was present in the emergency department and supervised care. This visit was performed by both the physician and an APC. I performed all aspects of the MDM as documented. This report was transcribed using voice recognition software. Every effort was made to ensure accuracy, however, inadvertently computerized billposter mistakes may be present. Appropriate healthcare PPE was used in evaluating this patient. The patient was placed in a mask. The healthcare provider was wearing mask, gloves, and utilizing proper hand hygiene. All equipment was properly cleansed. Problem List/Past Medical History Ongoing Adult BMI 40.0-44.9 kg/sq m Anxiety and depression Back pain with radiculopathy Bilateral arm pain Bipolar 1 disorder, mixed, moderate BMI 45.0-49.9, adult Class 3 severe obesity due to excess calories with body mass index (BMI) of 40.0 to 44.9 in adult Fatigue GDM (gestational diabetes mellitus) Marijuana use Mental disorder (more content not included)... [facility] Comment on above: Result Comment: Elec tronically Signed By: Miguelito Rubi PA-C\.br\Date and Time Signed: 08/22/23 22:32 EST\.br\Electronically Co-Signed By: Aleta Oliveira DO\.br\Date and Time Co-Signed: 08/22/23 23:10 EST ED Patient Education Noteon 08-22-2023 ED Patient Education Note ENT Otitis Media, Adult Otitis media occurs when there is inflammation and fluid in the middle ear with signs and symptoms of an acute infection. The middle ear is a part of the ear that contains bones for hearing as well as air that helps send sounds to the brain. When infected fluid builds up in this space, it causes pressure and can lead to an ear infection. The eustachian tube connects the middle ear to the back of the nose (nasopharynx) and normally allows air into the middle ear. If the eustachian tube becomes blocked, fluid can build up and become infected. What are the causes? This condition is caused by a blockage in the eustachian tube. This can be caused by mucus or by swelling of the tube. Problems that can cause a blockage include: ? A cold or other upper respiratory infection. ? Allergies. ? An irritant, such as tobacco smoke. ? Enlarged adenoids. The adenoids are areas of soft tissue located high in the back of the throat, behind the nose and the roof of the mouth. They are part of the body's defense system (immune system). ? A mass in the nasopharynx. ? Damage to the ear caused by pressure changes (barotrauma). What increases the risk? You are more likely to develop this condition if you: ? Smoke or are exposed to tobacco smoke. ? Have an opening in the roof of your mouth (cleft palate). ? Have gastroesophageal reflux. ? Have an immune system disorder. What are the signs or symptoms? Symptoms of this condition include: ? Ear pain. ? Fever. ? Decreased hearing. ? Tiredness (lethargy). ? Fluid leaking from the ear, if the eardrum is ruptured or has burst. ? Ringing in the ear. How is this diagnosed? This condition is diagnosed with a physical exam. During the exam, your health care provider will use an instrument called an otoscope to look in your ear and check for redness, swelling, and fluid. He or she will also ask about your symptoms. Your health care provider may also order tests, such as: ? A pneumatic otoscopy. This is a test to check the movement of the eardrum. It is done by squeezing a small amount of air into the ear. ? A tympanogram. This is a test that shows how well the eardrum moves in response to air pressure in the ear canal. It provides a graph for your health care provider to review. How is this treated? This condition can go away on its own within 3?5 days. But if the condition is caused by a bacterial infection and does not go away on its own, or if it keeps coming back, your health care provider may: ? Prescribe antibiotic medicine to treat the infection. ? Prescribe or recommend medicines to control pain. Follow these instructions at home: ? Take oyeh-mef-glghuvk and prescription medicines only as told by your health care provider. ? If you were prescribed an antibiotic medicine, take it as told by your health care provider. Do not stop taking the antibiotic even if you start to feel better. ? Keep all follow-up visits. This is important. Contact a health care provider if: ? You have bleeding from your nose. ? There is a lump on your neck. ? You are not feeling better in 5 days. ? You feel worse instead of better. Get help right away if: ? You have severe pain that is not controlled with medicine. ? You have swelling, redness, or pain around your ear. ? You have stiffness in your neck. ? A part of your face is not moving (paralyzed). ? The bone behind your ear (mastoid bone) is tender when you touch it. ? You develop a severe headache. Summary ? Otitis media is redness, soreness, and swelling of the middle ear, usually resulting in pain and decreased hearing. ? This condition can go away on its own within 3?5 days. ? If the problem does not go away in 3?5 days, your health care provider may give you medicines to treat the infection. ? If you were prescribed an antibiotic medicine, take it as told by your health care provider. ? Follow all instructions that were given to you by your health care provider. This information is not intended to replace advice given to you by your health care provider. Make sure you discuss any questions you have with your health care provider. Document Revised: 10/22/2021 Document Reviewed: 10/22/2021 [employer] Patient Education ? 2022 [employer] [facility] ED Patient Summaryon 024 ED Patient Summary (Inserted Image. Paola ble to display) [place] [id number] Patient Discharge Instructions Person Information Name: SCARLET DURAND Age: 23 Years Arrival Date: 08/22/2023 22:11:28 Discharge Diagnosis: Left otitis media Primary Care Physician: DOREEN HA CNP Provider Information Primary Provider: Aleta Oliveira DO Advanced Food Service Associate:None The exam and treatment you received in the Emergency Department were for an urgent problem and are not intended as complete care. It is important that you follow up with a doctor, nurse practitioner, or physician?s web assistant for ongoing care. If your symptoms become worse or you do not improve as expected and you are unable to reach your usual health care provider, you should return to the Emergency Department. We are available 24 hours a day. SCARLET DURAND has been given the following list of patient education materials, prescriptions and follow-up instructions: Follow-up Instructions: With: Address: When: [address] [place] [address] [employer] (1[facility] In 3 days 08/25/2023 Comments: Follow-up with your primary care provider in 3 to 5 days. If symptoms worsen, do not improve, or new symptoms arise please report back to emergency department for further evaluation. In the event that this physician does not participate in your insurance network, please consult with your insurance company to find a nearby participating provider. Patient Education Materials: Otitis Media, Adult A MESSAGE TO ALL PATIENTS REGARDING OPIOIDS PRESCRIPTION OPIOIDS: WHAT YOU NEED TO KNOW Prescription opioids can be used to help relieve rhiyoeht-us-yybszm pain and are often prescribed following a surgery or injury, or for certain health conditions. These medications can be an important part of the treatment but also come with serious risks. It is important to work with your healthcare provider to make sure you are getting the safest, most effective care. WHAT ARE THE RISKS AND SIDE EFFECTS OF OPIOID USE? Prescription opioids carry serious risks of addiction and overdose, especially with prolonged use. An opioid overdose, often marked by slowed breathing, can cause sudden . The use of prescription opioids can have a number of side effects as well, even when taken as directed: ? Tolerance?meaning you might need to take more of the medication for the same pain relief ? Physical dependence?meaning you have symptoms of withdrawal when a medication is stopped ? Increased sensitivity to pain ? Constipation ? Nausea, vomiting, and dry mouth ? Sleepiness and dizziness ? Confusion ? Depression ? Low levels of testosterone that can result in lower sex drive, energy, and strength ? Itching and sweating RISKS ARE GREATER WITH: ? History of drug misuse, substance use disorder, or overdose ? Mental health conditions (such as depression or anxiety) ? Sleep apnea ? Older age (65 years and older) ? Avoid alcohol while taking prescription opioids. Also, unless specifically advised by your health care provider, medications to avoid include: ? Benzodiazepines (such as Xanax or Valium) ? Muscle relaxants (such as Soma or Flexeril) ? Hypnotics (such as Ambien or Lunesta) ? Other prescription opioids KNOW YOUR OPTIONS Talk to your health care provider about ways to manage your pain that don?t involve prescription opioids. Some of these options may actually work better and have fewer risks and side effects. Options may include: ? Pain relievers such as acetaminophen, ibuprofen, and naproxen ? Some medication that are also used for depression or seizures ? Physical therapy and exercise ? Cognitive behavioral therapy, a psychological, goal-directed approach, in which patients learn how to modify physical, behavioral, and emotional triggers of pain and stress. IF YOU ARE PRESCRIBED OPIOIDS FOR PAIN: ? Never take opioids in greater amounts or more often than prescribed. ? Follow up with your primary health care provider. o Work together to create a plan on how to manage your pain. o Talk about ways to help manage your pain that don?t involve prescription opioids. o Talk about any and all concerns and side effects. ? Help prevent misuse and abuse o Never sell or share prescription opioids. o Never use another person?s prescription opioids. ? Store prescription opioids in a secure place and out of reach of others (this may include visitors, children, friends, and family). ? Safely dispose of unused prescription opioids: Find your community drug take-back program or your pharmacy mail-back program, or flush them down the toilet, following guidance from the Food and Drug Administration (www.fda.gov/Drugs/Reso urcesForYou). ? Visit www.cdc.gov/drugoverdos e to learn about the risks of opioids abuse and over (more content not included)... [facility] Consent for Treatmenton 06-29 Consent for Treatment [id number] IFF [facility] Discharge Instructionson Discharge Instructions [id number] TIFF [facility] ED Clinical Summaryon 2022 ED Clinical Summary (Inserted Image. Paola ble to display) [address] [address] ED Clinical Summary Person Information Name: SCARLET DURAND/New_Julian Age: 23 Years : 2000 Sex: Female Language: Tuvaluan PCP: DOREEN HA CNP Marital Status: Phone: [phone] Visit Id: Visit Reason: Breast Lump ? Mass; Skin problem; bump on right boob, pain and swelling Speciality: Acuity: 4 Enc Type: Emergency Med Service: Emergency Arrival: 07/27/2023 20:59:24 Discharge: 07/27/2023 21:44:43 LOS: 000 00:45 Checkin: 07/27/2023 20:59:24 Checkout: 07/27/2023 21:44:43 Dispo Type: Home (Routine DC) EVENTS: Event Name Event Status Request Date/Time Start Date/Time Complete Date/Time Arrive Complete 07/27/2023 20:59:24 07/27/2023 20:59:24 07/27/2023 20:59:24 Document Home Meds Request 07/27/2023 20:59:24 Triage Complete 07/27/2023 20:59:24 07/27/2023 21:11:30 07/27/2023 21:11:30 Bed Assign Complete 07/27/2023 21:05:00 07/27/2023 21:05:00 07/27/2023 21:05:00 Dr Exam Complete 07/27/2023 21:05:00 07/27/2023 21:05:05 07/27/2023 21:05:05 RN Exam Complete 07/27/2023 21:05:00 07/27/2023 21:23:20 07/27/2023 21:23:20 Registration Complete 07/27/2023 21:05:05 07/27/2023 21:37:28 07/27/2023 21:37:28 Meds Admin Complete 07/27/2023 21:22:21 07/27/2023 21:42:01 Discharge Complete 07/27/2023 21:24:18 07/27/2023 21:45:12 07/27/2023 21:45:12 Reg Complete Request 07/27/2023 21:37:28 Reg Bed Request Complete 07/27/2023 21:37:28 07/27/2023 21:37:28 07/27/2023 21:37:28 Transfer Complete 07/27/2023 21:45:12 07/27/2023 21:45:12 07/27/2023 21:45:12 ADDRESS: [address] [facility] [id number] PHYS DOC NOTES: MEDICAL INFORMATION: Prescriptions Given: New Medications [facility], [address] [place], [place] [id number], [phone] sulfamethoxazole-trimet hoprim (Bactrim D.S. 800 mg-160 mg Tab) 1 Tablets By Mouth 2 times a day. Refills: 0. Medications to Continue Taking That Have Changed [facility], [address] [place], [place] [id number], [phone] START: ondansetron (Zofran ODT 4 mg Tab-Dis) 1 Tablets By Mouth every 8 hours. Refills: 0. Other Medications START: ondansetron (Zofran ODT 4 mg Tab-Dis) 1 Tablets By Mouth every 8 hours as needed Nausea/Vomiting. Refills: 0. Medications to Continue with No Changes Other Medications cephalexin (Keflex 500 mg Cap) 1 Capsules By Mouth every 6 hours for 7 Days. Refills: 0. ibuprofen (ibuprofen 600 mg Tab) 1 Tablets By Mouth every 6 hours. Refills: 0. multivitamin, ( Multivitamins with Folic Acid 1.25 mg oral tablet) naproxen (Naprosyn 500 mg Tab) 1 Tablets By Mouth 2 times a day. Refills: 0. naproxen (Naprosyn 500 mg Tab) 1 Tablets By Mouth 2 times a day as needed for pain. Refills: 0. naproxen (naproxen 500 mg Tab) 1 Tablets By Mouth 2 times a day. Take one tab by mouth two times a day. Refills: 0. PATIENT EDUCATION INFORMATION: Instructions: Cellulitis, Adult, Swol-nr-Hbxd Follow up: With: Address: When: [place] [address] Business (1) In 3 days 07/30/2023 Comments: Take the antibiotics twice a day and to you have completed the course. You can use the Zofran every 6 hours as needed for nausea and vomiting. Follow-up with your primary care doctor in the next 2 to 3 days. You can use warm compresses on the area to help with the infection and trying to get it to the surface and drain. Please return to ED for any worsening symptoms. DIAGNOSIS: Cellulitis Normal [facility] ED Note-Physicianon 07-27-20 ED Note-Physician Basic Information Time Seen: Aleta Oliveira DO Michael 07/27/2023 21:05 Chief Complaint Pt states has lump in R breast/center of chest. States was here Friday and dx with spider bite, but getting worse. History of Present Illness Patient is a 23-year-old female presenting to the ED for evaluation of a lump on her chest. Patient was seen here on Friday was diagnosed with cellulitis and was prescribed Keflex however she has not been taking it as it was causing nausea and vomiting. Patient is at increased in size. Has not had any drainage. Denies previous history of this. Review of Systems A 10 point review of systems is negative except as noted above. Medical and Surgical History: Reviewed and noted Social history: Lives at home Tobacco: Denies Physical Exam Vitals & Measurements T: 37.3 ?C(Oral) HR: 105(Peripheral) RR: 16 BP: 144/92 SpO2: 100% HT: 163 cm WT: 123.4 kg BMI: 46.45 General: Well developed, non toxic appearing, no acute distress HEENT: Head atraumatic, Mucosa moist, hearing grossly normal Neck: No JVD, tracheal deviation Cardiac: Regular rate, rhythm, no murmurs, or gallops, 2+ radial pulses Respiratory: Lungs clear to auscultation B/L, normal respiratory effort Abdomen: Soft non tender, no rebound or guarding, no peritoneal signs Extremities: No edema noted in the LE B/L, no tenderness to palpation Neurologic: Alert and oriented, speech clear Skin: No rashes or lesions there is a firm palpable lesion noted of the mid sternum to the right breast area, there is no fluctuance, no drainage Psych: Appropriate mood and behavior Medical Decision Making MEDICAL DECISION MAKING Number and Complexity of Problems Differential Diagnosis: [] [facility] Data External documents reviewed: [] My EKG interpretation: [] My CT interpretation: [] My X-ray interpretation: [] My Ultrasound interpretation: [] Decision rules/scores evaluated: [] Discussed with: [] Treatment and Disposition ED Course: Patient is a 23-year-old female presenting to the ED for evaluation of a lesion to her anterior chest. Patient is nontoxic-appearing on arrival, no acute distress. Does have a palpable fluctuant area to the mid chest however there is no drainage. Patient's been noncompliant with her antibiotics. Due to this patient started on Bactrim is also given Zofran in the ED. Patient is discharged on Bactrim, Zofran. Shared decision making: [] Code status: [] Assessment/Plan Cellulitis (L03.90: Cellulitis, unspecified) Orders: ondansetron, 4 mg = 1 tab(s), Oral, q8hr, # 12 tab(s), Refills(s) 0, Pharmacy: [facility], 163, cm, 07/27/23 21:11:00 EST, Height/Length Dosing, 123.4, kg, 07/27/23 21:11:00 EST, Weight Dosing ondansetron, 4 mg = 1 tab(s), Tab-Dis, Oral, Once, Stop date 07/27/23 21:22:00 EST, STAT, Start date 07/27/23 21:22:00 EST, 07/27/23 21:22:00 EST sulfamethoxazole-trimet hoprim, 1 tab(s), Tab, Oral, Once, Stop date 07/27/23 21:22:00 EST, STAT, Start date 07/27/23 21:22:00 EST sulfamethoxazole-trimet hoprim, 1 tab(s), Oral, BID, 20 tab(s), Refill(s) 0, [facility], 163, cm, 07/27/23 21:11:00 EST, Height/Length Dosing, 123.4, kg, 07/27/23 21:11:00 EST, Weight Dosing Medications Administered Given Bactrim D.S. 800 mg-160 mg Tab, 1 tab(s), Oral Zofran ODT 4 mg Tab-Dis, 4 mg, Oral Disposition Plan Discharge Prescription List Prescriptions Bactrim D.S. 800 mg-160 mg Tab, 1 tab(s), Oral, BID Zofran ODT 4 mg Tab-Dis, 4 mg= 1 tab(s), Oral, q8hr Follow-up With When Contact Information DOREEN HA In 3 days 07/30/2023 EST [address] [place] [address] Business (1) Additional Instructions: Take the antibiotics twice a day and to you have completed the course. You can use the Zofran every 6 hours as needed for nausea and vomiting. Follow-up with your primary care doctor in the next 2 to 3 days. You can use warm compresses on the area to help with the infection and trying to get it to the surface and drain. Please return to ED for any worsening symptoms. Patient Education Cellulitis, Adult, Xmuh-bo-Yyka Problem List/Past Medical History Ongoing Adult BMI 40.0-44.9 kg/sq m Anxiety and depression Back pain with radiculopathy Bilateral arm pain Bipolar 1 disorder, mixed, moderate BMI 45.0-49.9, adult Class 3 severe obesity due to excess calories with body mass index (BMI) of 40.0 to 44.9 in adult Fatigue GDM (gestational diabetes mellitus) Marijuana use Mental disorder in , antepartum Morbid obesity Neuropathy Obesity complicating , second trimester PTSD (post-traumatic stress disorder) Shoulder pain, bilateral Smoker Supervision of high risk in second trimester Historical Amenorrhea Contraceptive management None Smoker 27-JAN-2014 12:37:00<$> Procedure/Surgical History None. Medications Inpatie (more content not included)... [facility] Comment on above: Result Comment: Elec tronically Signed By: Aleta Oliveira DO.br\Date and Time Signed: 07/27/23 23:31 EST ED Patient Education Noteon 07-27-2023 ED Patient Education Note Infectious Disease Cellulitis, Adult Cellulitis is a skin infection. The infected area is often warm, red, swollen, and sore. It occurs most often in the arms and lower legs. It is very important to get treated for this condition. What are the causes? This condition is caused by bacteria. The bacteria enter through a break in the skin, such as a cut, burn, insect bite, open sore, or crack. What increases the risk? This condition is more likely to occur in people who: ? Have a weak body defense system (immune system). ? Have open cuts, vega, bites, or scrapes on the skin. ? Are older than 60 years of age. ? Have a blood sugar problem (diabetes). ? Have a long-lasting (chronic) liver disease (cirrhosis) or kidney disease. ? Are very overweight (obese). ? Have a skin problem, such as: ? Itchy rash (eczema). ? Slow movement of blood in the veins (venous stasis). ? Fluid buildup below the skin (edema). ? Have been treated with high-energy rays (radiation). ? Use IV drugs. What are the signs or symptoms? Symptoms of this condition include: ? Skin that is: ? Red. ? Streaking. ? Spotting. ? Swollen. ? Sore or painful when you touch it. ? Warm. ? A fever. ? Chills. ? Blisters. How is this diagnosed? This condition is diagnosed based on: ? Medical history. ? Physical exam. ? Blood tests. ? Imaging tests. How is this treated? Treatment for this condition may include: ? Medicines to treat infections or allergies. ? Home care, such as: ? Rest. ? Placing cold or warm cloths (compresses) on the skin. ? Hospital care, if the condition is very bad. Follow these instructions at home: Medicines ? Take ojyt-tlz-wjxvuel and prescription medicines only as told by your doctor. ? If you were prescribed an antibiotic medicine, take it as told by your doctor. Do not stop taking it even if you start to feel better. General instructions ? Drink enough fluid to keep your pee (urine) pale yellow. ? Do not touch or rub the infected area. ? Raise (elevate) the infected area above the level of your heart while you are sitting or lying down. ? Place cold or warm cloths on the area as told by your doctor. ? Keep all follow-up visits as told by your doctor. This is important. Contact a doctor if: ? You have a fever. ? You do not start to get better after 1?2 days of treatment. ? Your bone or joint under the infected area starts to hurt after the skin has healed. ? Your infection comes back. This can happen in the same area or another area. ? You have a swollen bump in the area. ? You have new symptoms. ? You feel ill and have muscle aches and pains. Get help right away if: ? Your symptoms get worse. ? You feel very sleepy. ? You throw up (vomit) or have watery poop (diarrhea) for a long time. ? You see red streaks coming from the area. ? Your red area gets larger. ? Your red area turns dark in color. These symptoms may represent a serious problem that is an emergency. Do not wait to see if the symptoms will go away. Get medical help right away. Call your local emergency services (911 in the [place] Do not drive yourself to the hospital. Summary ? Cellulitis is a skin infection. The area is often warm, red, swollen, and sore. ? This condition is treated with medicines, rest, and cold and warm cloths. ? Take all medicines only as told by your doctor. ? Tell your doctor if symptoms do not start to get better after 1?2 days of treatment. This information is not intended to replace advice given to you by your health care provider. Make sure you discuss any questions you have with your health care provider. Document Revised: 04/25/2022 Document Reviewed: 04/25/2022 [employer] Patient Education ? 2022 [employer] Normal [facility] ED Patient Summaryon 023 ED Patient Summary (Inserted Image. Paola ble to display) [place] [id number] Patient Discharge Instructions Person Information Name: SCARLET DURAND Age: 23 Years Arrival Date: 07/27/2023 20:59:24 Discharge Diagnosis: Cellulitis Primary Care Physician: DOREEN HA CNP Provider Information Primary Provider: Aleta Oliveira DO Advanced Food Service Associate:None The exam and treatment you received in the Emergency Department were for an urgent problem and are not intended as complete care. It is important that you follow up with a doctor, nurse practitioner, or physician?s web assistant for ongoing care. If your symptoms become worse or you do not improve as expected and you are unable to reach your usual health care provider, you should return to the Emergency Department. We are available 24 hours a day. SCARLET DURAND has been given the following list of patient education materials, prescriptions and follow-up instructions: Follow-up Instructions: With: Address: When: [address] [place], [place] [id number] Business (1) In 3 days 07/30/2023 Comments: Take the antibiotics twice a day and to you have completed the course. You can use the Zofran every 6 hours as needed for nausea and vomiting. Follow-up with your primary care doctor in the next 2 to 3 days. You can use warm compresses on the area to help with the infection and trying to get it to the surface and drain. Please return to ED for any worsening symptoms. In the event that this physician does not participate in your insurance network, please consult with your insurance company to find a nearby participating provider. Patient Education Materials: Cellulitis, Adult, Wrxn-vs-Ecrc A MESSAGE TO ALL PATIENTS REGARDING OPIOIDS PRESCRIPTION OPIOIDS: WHAT YOU NEED TO KNOW Prescription opioids can be used to help relieve ghgkothf-ff-xtrjol pain and are often prescribed following a surgery or injury, or for certain health conditions. These medications can be an important part of the treatment but also come with serious risks. It is important to work with your healthcare provider to make sure you are getting the safest, most effective care. WHAT ARE THE RISKS AND SIDE EFFECTS OF OPIOID USE? Prescription opioids carry serious risks of addiction and overdose, especially with prolonged use. An opioid overdose, often marked by slowed breathing, can cause sudden . The use of prescription opioids can have a number of side effects as well, even when taken as directed: ? Tolerance?meaning you might need to take more of the medication for the same pain relief ? Physical dependence?meaning you have symptoms of withdrawal when a medication is stopped ? Increased sensitivity to pain ? Constipation ? Nausea, vomiting, and dry mouth ? Sleepiness and dizziness ? Confusion ? Depression ? Low levels of testosterone that can result in lower sex drive, energy, and strength ? Itching and sweating RISKS ARE GREATER WITH: ? History of drug misuse, substance use disorder, or overdose ? Mental health conditions (such as depression or anxiety) ? Sleep apnea ? Older age (65 years and older) ? Avoid alcohol while taking prescription opioids. Also, unless specifically advised by your health care provider, medications to avoid include: ? Benzodiazepines (such as Xanax or Valium) ? Muscle relaxants (such as Soma or Flexeril) ? Hypnotics (such as Ambien or Lunesta) ? Other prescription opioids KNOW YOUR OPTIONS Talk to your health care provider about ways to manage your pain that don?t involve prescription opioids. Some of these options may actually work better and have fewer risks and side effects. Options may include: ? Pain relievers such as acetaminophen, ibuprofen, and naproxen ? Some medication that are also used for depression or seizures ? Physical therapy and exercise ? Cognitive behavioral therapy, a psychological, goal-directed approach, in which patients learn how to modify physical, behavioral, and emotional triggers of pain and stress. IF YOU ARE PRESCRIBED OPIOIDS FOR PAIN: ? Never take opioids in greater amounts or more often than prescribed. ? Follow up with your primary health care provider. o Work together to create a plan on how to manage your pain. o Talk about ways to help manage your pain that don?t involve prescription opioids. o Talk about any and all concerns and side effects. ? Help prevent misuse and abuse o Never sell or share prescription opioids. o Never use another person?s prescription opioids. ? Store prescription opioids in a secure place and out of reach of others (this may include visitors, children, friends, and family). ? Safely dispose of unused prescription opioids: Find your community drug take-back program or your pharmacy mail-back program, or flush them down (more content not included)... [facility] ED Note-Physicianon 07-26-20 ED Note-Physician Basic Information Time Seen: Greyson MONDRAGON, Miguelito Solorzano. 07/25/2023 20:27 Chief Complaint pt arrives for c/o abcess/ mass on the right breast. pt states she noticed 3 days ago with pain starting tonight. denies redness or draninage History of Present Illness A 23-year-old female reports to the emergency department with chief complaint of some redness possible abscess on the right side of her breast. Reports that she noticed it 3 days ago, and the pain started tonight. Reports little bit of redness. Denies any drainage. Denies any injury or trauma to this area. Wanted get checked out. Denies any known allergies. Review of Systems A 10 point review of systems is negative except as noted above. Medical and Surgical History: Reviewed and noted Social history: Lives at home Family History: Reviewed. Tobacco: Denies, former Physical Exam Vitals & Measurements T: 36.6 ?C(Oral) HR: 91(Peripheral) RR: 17 BP: 113/74 SpO2: 99% HT: 163 cm WT: 123.3 kg BMI: 46.41 General: The patient appears well and in no apparent distress. Patient is resting comfortably in chair. Afebrile Skin: Warm, dry, no pallor noted. Nurse Evan BRADEN was my clinical specialist throughout the encounter. Along the patient's medial aspect of her right breast, there is a small area with sharp demarcated erythema, and redness noted. Mild warmth noted and tenderness to palpation. No obvious fluctuation felt. Head: Normocephalic, atraumatic Neck: No JVD Eye: PERRLA, EOMI ENT: Moist mucus membranes Cardiovascular: Regular rate normal peripheral perfusion Respiratory: No respiratory distress no accessory muscle use no obvious audible wheezing Chest Wall: no deformity Musculoskeletal: normal ROM, no deformity, no swelling GI: No obvious distention Neurological: A&O moves all extremities equal strength and symmetry Psychiatric: Cooperative and appropriate Medical Decision Making MEDICAL DECISION MAKING Number and Complexity of Problems Differential Diagnosis: [] [facility] Data External documents reviewed: [] My EKG interpretation: [] My CT interpretation: [] My X-ray interpretation: [] My Ultrasound interpretation: [] Decision rules/scores evaluated: [] Discussed with: [] Treatment and Disposition ED Course: 23-year-old female reports to the emergency department with a chief complaint of possible abscess of her right breast. Reports that it started 3 days ago, worsened today. On physical exam, which I did perform with nurse Gordon as my clinical specialist, appears to be a cellulitis on the medial aspect of right-sided breast. No obvious abscess formation noted. Due to her concerns, patient already on Keflex. Given first dose here. Discussed follow-up with PCP. Discussed taking full course of antibiotics as prescribed. Follow-up with your primary care provider in 3 to 5 days. If symptoms worsen, do not improve, or new symptoms arise please report back to emergency department for further evaluation. The patient was understanding and agreeable to plan moving forward. Shared decision making: [] Code status: [] Assessment/Plan Cellulitis of right breast (N61.0: Mastitis without abscess) Orders: cephalexin, 500 mg = 1 cap(s), Cap, Oral, Once, Stop date 07/25/23 20:32:00 EST, STAT, Start date 07/25/23 20:32:00 EST, 07/25/23 20:32:00 EST cephalexin, 500 mg = 1 cap(s), Oral, q6hr, X 7 day(s), # 28 cap(s), Refills(s) 0, Pharmacy: [facility], 163, cm, 07/25/23 20:26:00 EST, Height/Length Dosing, 123.3, kg, 07/25/23 20:26:00 EST, Weight Dosing Medications Administered Given Keflex 500 mg Cap, 500 mg, Oral Disposition Plan Patient Discharge Condition Stable Discharge Disposition To home Discharge Prescription List Prescriptions Keflex 500 mg Cap, 500 mg= 1 cap(s), Oral, q6hr Follow-up With When Contact Information DOREEN HA In 3 days 07/28/2023 EST [address] [place] [address]- Business (1) Additional Instructions: Follow-up with your primary care provider in 3 to 5 days. If symptoms worsen, do not improve, or new symptoms arise please report back to emergency department for further evaluation. Patient Education Cellulitis, Adult, Ymxk-es-Iwqn Attestation Patient seen and evaluated by the physician web assistant. Attending physician was present in the emergency department and supervised care. This visit was performed by both the physician and an APC. I performed all aspects of the MDM as documented. This report was transcribed using voice recognition software. Every effort was made to ensure accuracy, however, inadvertently computerized billposter mistakes may be present. Appropriate healthcare PPE was used in evaluating this patient. The patient was placed in a mask. The healthcare provider was wearing mask, gloves, and utilizing proper hand hygiene. All equipment was properly cleansed. Problem List/Past Medical History Ongoing Adult BMI 40.0-44.9 kg/sq m Anxiety (more content not included)... Normal [facility] Comment on above: Result Comment: Elec tronically Signed By: Miguelito Rubi PA-C\.br\Date and Time Signed: 07/25/23 23:28 EST\.br\Electronically Co-Signed By: Kosta Carter MD\.br\Date and Time Co-Signed: 07/26/23 05:22 EST Consent for Treatmenton 06-28 Consent for Treatment [id number] IFF [facility] Discharge Instructionson Discharge Instructions [id number] TIFF Normal [facility] ED Clinical Summaryon 2022 ED Clinical Summary (Inserted Image. Paola ble to display) [place] [id number] ED Clinical Summary Person Information Name: SCARLET DURAND/[facility] Age: 23 Years : 2000 Sex: Female Language: Tuvaluan PCP: DOREEN HA CNP Marital Status: Phone: [phone] Visit Id: Visit Reason: Breast Lump ? Mass; RIGHT BREAST LUMP Speciality: Acuity: 4 Enc Type: Emergency Med Service: Emergency Arrival: 07/25/2023 20:21:00 Discharge: 07/25/2023 20:38:29 LOS: 000 00:17 Checkin: 07/25/2023 20:21:00 Checkout: 07/25/2023 20:38:29 Dispo Type: Home (Routine DC) EVENTS: Event Name Event Status Request Date/Time Start Date/Time Complete Date/Time Arrive Complete 07/25/2023 20:21:00 07/25/2023 20:21:00 07/25/2023 20:21:00 Document Home Meds Request 07/25/2023 20:21:00 Triage Complete 07/25/2023 20:21:00 07/25/2023 20:26:44 07/25/2023 20:26:44 Registration Complete 07/25/2023 20:24:38 07/25/2023 20:24:38 07/25/2023 20:24:38 Reg Complete Request 07/25/2023 20:24:38 Reg Bed Request Complete 07/25/2023 20:24:38 07/25/2023 20:24:38 07/25/2023 20:24:38 Bed Assign Complete 07/25/2023 20:26:51 07/25/2023 20:26:51 07/25/2023 20:26:51 Dr Exam Complete 07/25/2023 20:26:51 07/25/2023 20:27:31 07/25/2023 20:27:31 RN Exam Complete 07/25/2023 20:26:51 07/25/2023 20:33:43 07/25/2023 20:33:43 Registration Request 07/25/2023 20:27:31 Meds Admin Complete 07/25/2023 20:32:55 07/25/2023 20:37:18 Discharge Complete 07/25/2023 20:34:35 07/25/2023 20:38:33 07/25/2023 20:38:33 Transfer Complete 07/25/2023 20:38:33 07/25/2023 20:38:33 07/25/2023 20:38:33 ADDRESS: [address] [facility] [id number] PHYS DOC NOTES: MEDICAL INFORMATION: Prescriptions Given: New Medications [facility], [address] [place], [place] [id number], [phone] cephalexin (Keflex 500 mg Cap) 1 Capsules By Mouth every 6 hours for 7 Days. Refills: 0. Medications to Continue with No Changes Other Medications ibuprofen (ibuprofen 600 mg Tab) 1 Tablets By Mouth every 6 hours. Refills: 0. multivitamin, ( Multivitamins with Folic Acid 1.25 mg oral tablet) naproxen (Naprosyn 500 mg Tab) 1 Tablets By Mouth 2 times a day. Refills: 0. naproxen (Naprosyn 500 mg Tab) 1 Tablets By Mouth 2 times a day as needed for pain. Refills: 0. naproxen (naproxen 500 mg Tab) 1 Tablets By Mouth 2 times a day. Take one tab by mouth two times a day. Refills: 0. ondansetron (Zofran ODT 4 mg Tab-Dis) 1 Tablets By Mouth every 8 hours as needed Nausea/Vomiting. Refills: 0. PATIENT EDUCATION INFORMATION: Instructions: Cellulitis, Adult, Wgxs-ol-[id number] Follow up: With: Address: When: DOREEN HA [place] [id number] [facility] ([facility] In 3 days 07/28/2023 Comments: Follow-up with your primary care provider in 3 to 5 days. If symptoms worsen, do not improve, or new symptoms arise please report back to emergency department for further evaluation. DIAGNOSIS: Cellulitis of right breast Normal [facility] ED Patient Education Noteon 07-25-2023 ED Patient Education Note Infectious Disease Cellulitis, Adult Cellulitis is a skin infection. The infected area is often warm, red, swollen, and sore. It occurs most often in the arms and lower legs. It is very important to get treated for this condition. What are the causes? This condition is caused by bacteria. The bacteria enter through a break in the skin, such as a cut, burn, insect bite, open sore, or crack. What increases the risk? This condition is more likely to occur in people who: ? Have a weak body defense system (immune system). ? Have open cuts, vega, bites, or scrapes on the skin. ? Are older than 60 years of age. ? Have a blood sugar problem (diabetes). ? Have a long-lasting (chronic) liver disease (cirrhosis) or kidney disease. ? Are very overweight (obese). ? Have a skin problem, such as: ? Itchy rash (eczema). ? Slow movement of blood in the veins (venous stasis). ? Fluid buildup below the skin (edema). ? Have been treated with high-energy rays (radiation). ? Use IV drugs. What are the signs or symptoms? Symptoms of this condition include: ? Skin that is: ? Red. ? Streaking. ? Spotting. ? Swollen. ? Sore or painful when you touch it. ? Warm. ? A fever. ? Chills. ? Blisters. How is this diagnosed? This condition is diagnosed based on: ? Medical history. ? Physical exam. ? Blood tests. ? Imaging tests. How is this treated? Treatment for this condition may include: ? Medicines to treat infections or allergies. ? Home care, such as: ? Rest. ? Placing cold or warm cloths (compresses) on the skin. ? Hospital care, if the condition is very bad. Follow these instructions at home: Medicines ? Take addj-jga-fkgxcne and prescription medicines only as told by your doctor. ? If you were prescribed an antibiotic medicine, take it as told by your doctor. Do not stop taking it even if you start to feel better. General instructions ? Drink enough fluid to keep your pee (urine) pale yellow. ? Do not touch or rub the infected area. ? Raise (elevate) the infected area above the level of your heart while you are sitting or lying down. ? Place cold or warm cloths on the area as told by your doctor. ? Keep all follow-up visits as told by your doctor. This is important. Contact a doctor if: ? You have a fever. ? You do not start to get better after 1?2 days of treatment. ? Your bone or joint under the infected area starts to hurt after the skin has healed. ? Your infection comes back. This can happen in the same area or another area. ? You have a swollen bump in the area. ? You have new symptoms. ? You feel ill and have muscle aches and pains. Get help right away if: ? Your symptoms get worse. ? You feel very sleepy. ? You throw up (vomit) or have watery poop (diarrhea) for a long time. ? You see red streaks coming from the area. ? Your red area gets larger. ? Your red area turns dark in color. These symptoms may represent a serious problem that is an emergency. Do not wait to see if the symptoms will go away. Get medical help right away. Call your local emergency services (911 in the [place] Do not drive yourself to the hospital. Summary ? Cellulitis is a skin infection. The area is often warm, red, swollen, and sore. ? This condition is treated with medicines, rest, and cold and warm cloths. ? Take all medicines only as told by your doctor. ? Tell your doctor if symptoms do not start to get better after 1?2 days of treatment. This information is not intended to replace advice given to you by your health care provider. Make sure you discuss any questions you have with your health care provider. Document Revised: 04/25/2022 Document Reviewed: 04/25/2022 Elsevier Patient Education ? 2022 [employer]. Normal [facility] ED Patient Summaryon 023 ED Patient Summary (Inserted Image. Paola ble to display) [address] [address] Patient Discharge Instructions Person Information Name: SCARLET DURAND Age: 23 Years Arrival Date: 07/25/2023 20:21:00 Discharge Diagnosis: Cellulitis of right breast Primary Care Physician: DOREEN HA CNP Provider Information Primary Provider: Advanced Food Service Associate:None The exam and treatment you received in the Emergency Department were for an urgent problem and are not intended as complete care. It is important that you follow up with a doctor, nurse practitioner, or physician?s web assistant for ongoing care. If your symptoms become worse or you do not improve as expected and you are unable to reach your usual health care provider, you should return to the Emergency Department. We are available 24 hours a day. SCARLET DURAND has been given the following list of patient education materials, prescriptions and follow-up instructions: Follow-up Instructions: With: Address: When: DOREEN HA [address] [place] [address] [address] [place] [id number] Business (1) In 3 days 07/28/2023 Comments: Follow-up with your primary care provider in 3 to 5 days. If symptoms worsen, do not improve, or new symptoms arise please report back to emergency department for further evaluation. In the event that this physician does not participate in your insurance network, please consult with your insurance company to find a nearby participating provider. Patient Education Materials: Cellulitis, Adult, Xmko-hs-Kxvo A MESSAGE TO ALL PATIENTS REGARDING OPIOIDS PRESCRIPTION OPIOIDS: WHAT YOU NEED TO KNOW Prescription opioids can be used to help relieve sskeyfzr-wr-joonae pain and are often prescribed following a surgery or injury, or for certain health conditions. These medications can be an important part of the treatment but also come with serious risks. It is important to work with your healthcare provider to make sure you are getting the safest, most effective care. WHAT ARE THE RISKS AND SIDE EFFECTS OF OPIOID USE? Prescription opioids carry serious risks of addiction and overdose, especially with prolonged use. An opioid overdose, often marked by slowed breathing, can cause sudden . The use of prescription opioids can have a number of side effects as well, even when taken as directed: ? Tolerance?meaning you might need to take more of the medication for the same pain relief ? Physical dependence?meaning you have symptoms of withdrawal when a medication is stopped ? Increased sensitivity to pain ? Constipation ? Nausea, vomiting, and dry mouth ? Sleepiness and dizziness ? Confusion ? Depression ? Low levels of testosterone that can result in lower sex drive, energy, and strength ? Itching and sweating RISKS ARE GREATER WITH: ? History of drug misuse, substance use disorder, or overdose ? Mental health conditions (such as depression or anxiety) ? Sleep apnea ? Older age (65 years and older) ? Avoid alcohol while taking prescription opioids. Also, unless specifically advised by your health care provider, medications to avoid include: ? Benzodiazepines (such as Xanax or Valium) ? Muscle relaxants (such as Soma or Flexeril) ? Hypnotics (such as Ambien or Lunesta) ? Other prescription opioids KNOW YOUR OPTIONS Talk to your health care provider about ways to manage your pain that don?t involve prescription opioids. Some of these options may actually work better and have fewer risks and side effects. Options may include: ? Pain relievers such as acetaminophen, ibuprofen, and naproxen ? Some medication that are also used for depression or seizures ? Physical therapy and exercise ? Cognitive behavioral therapy, a psychological, goal-directed approach, in which patients learn how to modify physical, behavioral, and emotional triggers of pain and stress. IF YOU ARE PRESCRIBED OPIOIDS FOR PAIN: ? Never take opioids in greater amounts or more often than prescribed. ? Follow up with your primary health care provider. o Work together to create a plan on how to manage your pain. o Talk about ways to help manage your pain that don?t involve prescription opioids. o Talk about any and all concerns and side effects. ? Help prevent misuse and abuse o Never sell or share prescription opioids. o Never use another person?s prescription opioids. ? Store prescription opioids in a secure place and out of reach of others (this may include visitors, children, friends, and family). ? Safely dispose of unused prescription opioids: Find your community drug take-back program or your pharmacy mail-back program, or flush them down the toilet, following guidance from the Food and Drug Administration (www.fda.gov/Drugs/Reso urcesForYou). ? Visit www.cdc.gov/drugoverdos e to learn about the risks of opioids abuse and overdo (more content not included)... Normal [facility] ED Note-Physicianon 07-16-20 ED Note-Physician Basic Information Time Seen: Nori Wayne PA-C 07/13/2023 15:38 Chief Complaint Pt presents to ED with complaints of nasuea, vomiting and diarrhea onset last night History of Present Illness 23-year-old female presents to the ED complaining of throat pain, nausea, vomiting, diarrhea. Symptom started yesterday. Patient's daughter is here with the same symptoms. Patient has pain with swallowing but no difficulty with swallowing. No difficulty handling secretions. Describes fevers and chills at home. Review of Systems All organ systems are reviewed. Pertinent positive and negative findings as mentioned in the HPI. Physical Exam Vitals & Measurements T: 37.2 ?C(Oral) HR: 121(Peripheral) RR: 18 BP: 124/93 SpO2: 99% HT: 163 cm WT: 117.9 kg BMI: 44.38 GENERAL APPEARANCE: Well developed, well nourished, alert and cooperative, and appears to be in no acute distress. HEAD: normocephalic, atraumatic EYES: PERRL, EOMI. Vision is grossly intact. EARS: External auditory canals clear, hearing grossly intact. NOSE: No nasal discharge. THROAT: Posterior oropharynx is erythematous. Bilateral tonsillar hypertrophy without exudate. Uvula is midline. No evidence of abscess formation. No trismus, no muffled voice, no difficulty handling secretions. NECK: Neck supple, non-tender without lymphadenopathy, masses. No nuchal rigidity CARDIAC: Normal heart sounds, no murmurs. Rhythm is regular. LUNGS: Clear to auscultation without rales, rhonchi, wheezing or diminished breath sounds. ABDOMEN: Soft, nondistended, nontender. No guarding or rebound. MUSCULOSKELETAL: Adequately aligned spine. ROM intact spine and extremities. No joint erythema or tenderness. NEUROLOGICAL: CN grossly intact. Strength and sensation symmetric and intact throughout. SKIN: Skin normal color, texture and turgor with no lesions or eruptions. Assessment/Plan 1. Nausea, vomiting and diarrhea (R11.2: Nausea with vomiting, unspecified) Diarrhea, unspecified (R19.7: Diarrhea, unspecified) Orders: ondansetron, 4 mg = 1 tab(s), Tab-Dis, Oral, Once, Stop date 07/13/23 16:08:00 EST, STAT, Start date 07/13/23 16:08:00 EST, 07/13/23 16:08:00 EST ondansetron, 4 mg = 1 tab(s), Oral, q8hr, PRN Nausea/Vomiting, # 12 tab(s), Refills(s) 0, Pharmacy: [facility], 163, cm, 07/13/23 15:31:00 EST, Height/Length Dosing, 117.9, kg, 07/13/23 15:31:00 EST, Weight Dosing Group A Strep by PCR Rapid Strep w/rfx 23-year-old female presents to the ED complaining of nausea, vomiting, fever, sore throat. Symptoms started yesterday. In the ED patient is afebrile, vital signs are stable, no acute distress. Rapid strep is negative. Patient treated with Zofran with improvement of her symptoms. Able to tolerate water without any further vomiting. Patient educated on results and supportive care. Discharge home with instructions to follow with PCP and given prescription for Zofran. She is to return to the ED with any new or worsening symptoms. Patient voices understanding and is agreeable to plan. Medications Administered Given Zofran ODT 4 mg Tab-Dis, 4 mg, Oral Disposition Plan Patient Discharge Condition improved, stable Discharge Disposition to home Discharge Prescription List Prescriptions Zofran ODT 4 mg Tab-Dis, 4 mg= 1 tab(s), Oral, q8hr, PRN Follow-up With When Contact Information DOREEN HA In 3 [place] [id number]- [facility] (1) Additional Instructions: Patient Education Vomiting, Adult Attestation Patient was treated and evaluated by the Physician Barrel Raiser. The attending physician was in the Emergency Department at all times and supervised care. The case was discussed with the attending physician and diagnostics were reviewed as needed. Problem List/Past Medical History Ongoing Adult BMI 40.0-44.9 kg/sq m Anxiety and depression Back pain with radiculopathy Bilateral arm pain Bipolar 1 disorder, mixed, moderate BMI 45.0-49.9, adult Class 3 severe obesity due to excess calories with body mass index (BMI) of 40.0 to 44.9 in adult Fatigue GDM (gestational diabetes mellitus) Marijuana use Mental disorder in , antepartum Morbid obesity Neuropathy Obesity complicating , second trimester PTSD (post-traumatic stress disorder) Shoulder pain, bilateral Smoker Supervision of high risk in second trimester Historical Amenorrhea Contraceptive management None Smoker 27-JAN-2014 12:37:00<$> Procedure/Surgical History None. Medications Inpatient No active inpatient medications Home ibuprofen 600 mg Tab, 600 mg= 1 tab(s), Oral, q6hr Naprosyn 500 mg Tab, 500 mg= 1 tab(s), Oral, BID Naprosyn 500 mg Tab, 500 mg= 1 tab(s), Oral, BID, PRN naproxen 500 mg Tab, 500 mg= 1 tab(s), Oral, BID Multivitamins with Folic Acid 1.25 mg oral tablet Zofran ODT 4 mg Tab-Dis, 4 mg= 1 tab(s), Oral, q8h (more content not included)... Normal [facility] Comment on above: Result Comment: Elec tronically Signed By: Nori Wayne PA-C\.br\Date and Time Signed: 07/13/23 22:38 EST\.br\Electronically Co-Signed By: [place] Faustin M.D.\.br\Date and Time Co-Signed: 07/16/23 19:25 EST Grp A Strp PCRon 07-14-2023 Grp A Strp Intrl Ctrl Pass Normal [facility] Comment on above: Order Comment: Order Added on by Discern Rule. Performed By: #### 2 [id number], [id number] ####[facility] [id number] [place] [address] S. pyogenes DNA RENÉE+probe Ql (Throat) Negative Normal [facility] Comment on above: Order Comment: Order Added on by Discern Rule. Result Comment: Test ing performed using DNA amplification. Performed By: #### 2 [id number], [id number] ####[facility] [id number] [place] [address] Consent for Treatmenton 06-27 Consent for Treatment [id number] IFF Normal [facility] Discharge Instructionson Discharge Instructions [id number] TIFF Normal [facility] ED Clinical Summaryon 2022 ED Clinical Summary (Inserted Image. Paola ble to display) [address] [address] ED Clinical Summary Person Information Name: SCARLET DURAND [place]/[facility] Age: 23 Years : 2000 Sex: Female Language: Tuvaluan PCP: DOREEN AH CNP Marital Status: Phone: [phone] Visit Id: Visit Reason: Diarrhea; Nausea and vomiting; VOMITTING, NAUSEA, FEVER Speciality: Acuity: 3 Enc Type: Emergency Med Service: Emergency Arrival: 07/13/2023 15:21:36 Discharge: 07/13/2023 18:03:02 LOS: 000 02:42 Checkin: 07/13/2023 15:21:36 Checkout: 07/13/2023 18:03:02 Dispo Type: Home (Routine DC) EVENTS: Event Name Event Status Request Date/Time Start Date/Time Complete Date/Time Arrive Complete 07/13/2023 15:21:36 07/13/2023 15:21:36 07/13/2023 15:21:36 Document Home Meds Request 07/13/2023 15:21:36 Triage Complete 07/13/2023 15:21:36 07/13/2023 15:31:27 07/13/2023 15:31:27 Registration Complete 07/13/2023 15:26:54 07/13/2023 15:26:54 07/13/2023 15:26:54 Reg Complete Request 07/13/2023 15:26:54 Reg Bed Request Complete 07/13/2023 15:26:54 07/13/2023 15:26:54 07/13/2023 15:26:54 Bed Assign Complete 07/13/2023 15:31:43 07/13/2023 15:31:43 07/13/2023 15:31:43 Dr Exam Complete 07/13/2023 15:31:43 07/13/2023 15:38:07 07/13/2023 15:38:07 RN Exam Complete 07/13/2023 15:31:43 07/13/2023 15:39:51 07/13/2023 15:39:51 Registration Request 07/13/2023 15:38:07 Dr Exam Complete 07/13/2023 15:39:43 07/13/2023 15:39:43 07/13/2023 15:39:43 Pending Labs Complete 07/13/2023 16:07:50 07/13/2023 16:52:42 Meds Admin Complete 07/13/2023 16:08:55 07/13/2023 16:14:59 Pending Labs Inlab 07/13/2023 16:52:42 07/13/2023 16:52:42 Discharge Complete 07/13/2023 17:58:48 07/13/2023 18:03:07 07/13/2023 18:03:07 Transfer Complete 07/13/2023 18:03:07 07/13/2023 18:03:07 07/13/2023 18:03:07 AD[address]: [address] [facility] [facility] [address] [facility] [id number] PHYS DOC NOTES: MEDICAL INFORMATION: Prescriptions Given: New Medications [facility], [address] [place], [place] [id number], [phone] ondansetron (Zofran ODT 4 mg Tab-Dis) 1 Tablets By Mouth every 8 hours as needed Nausea/Vomiting. Refills: 0. Medications to Continue with No Changes Other Medications ibuprofen (ibuprofen 600 mg Tab) 1 Tablets By Mouth every 6 hours. Refills: 0. multivitamin, ( Multivitamins with Folic Acid 1.25 mg oral tablet) naproxen (Naprosyn 500 mg Tab) 1 Tablets By Mouth 2 times a day. Refills: 0. naproxen (Naprosyn 500 mg Tab) 1 Tablets By Mouth 2 times a day as needed for pain. Refills: 0. naproxen (naproxen 500 mg Tab) 1 Tablets By Mouth 2 times a day. Take one tab by mouth two times a day. Refills: 0. PATIENT EDUCATION INFORMATION: Instructions: Vomiting, Adult Follow up: With: Address: When: [place] [address] Business (1) In 3 days DIAGNOSIS: 1:Nausea, vomiting and diarrhea; Diarrhea, unspecified Normal [facility] ED Patient Education Noteon 07-13-2023 ED Patient Education Note Gastroenterology Vomiting, Adult Vomiting is when stomach contents forcefully come out of the mouth. Many people notice nausea before vomiting. Vomiting can make you feel weak and cause you to become dehydrated. Dehydration can make you feel tired and thirsty, cause you to have a dry mouth, and decrease how often you urinate. Older adults and people who have other diseases or a weak body defense system (immune system) are at higher risk for dehydration. It is important to treat vomiting as told by your health care provider. Follow these instructions at home: Watch your symptoms for any changes. Tell your health care provider about them. Eating and drinking Follow these recommendations as told by your health care provider: ? Take an oral rehydration solution (ORS). This is a drink that is sold at pharmacies and retail stores. ? Eat bland, sekr-ql-cljiyn foods in small amounts as you are able. These foods include bananas, applesauce, rice, lean meats, toast, and crackers. ? Drink clear fluids slowly and in small amounts as you are able. Clear fluids include water, ice chips, low-calorie sports drinks, and fruit juice that has water added (diluted fruit juice). ? Avoid drinking fluids that contain a lot of sugar or caffeine, such as energy drinks, sports drinks, and soda. ? Avoid alcohol. ? Avoid spicy or fatty foods. General instructions ? Wash your hands often using soap and water for at least 20 seconds. If soap and water are not available, use hand bedspread folder. ? Make sure that everyone in your household washes their hands frequently. ? Take ibsx-wfx-wayerri and prescription medicines only as told by your health care provider. ? Rest at home while you recover. ? Watch your condition for any changes. ? Keep all follow-up visits. This is important. Contact a health care provider if: ? Your vomiting gets worse. ? You have new symptoms. ? You have a fever. ? You cannot drink fluids without vomiting. ? You feel light-headed or dizzy. ? You have a headache. ? You have muscle cramps. ? You have a rash. ? You have pain while urinating. Get help right away if: ? You have pain in your chest, neck, arm, or jaw. ? Your heart is beating very quickly. ? You have trouble breathing or you are breathing very quickly. ? You feel extremely weak or you faint. ? Your skin feels cold and clammy. ? You feel confused. ? You have persistent vomiting. ? You have vomit that is bright red or looks like black coffee grounds. ? You have stools (feces) that are bloody or black, or stools that look like tar. ? You have a severe headache, a stiff neck, or both. ? You have severe pain, cramping, or bloating in your abdomen. ? You have signs of dehydration, such as: ? Dark urine, very little urine, or no urine. ? Cracked lips. ? Dry mouth. ? Sunken eyes. ? Sleepiness. ? Weakness. These symptoms may be an emergency. Get help right away. Call 911. ? Do not wait to see if the symptoms will go away. ? Do not drive yourself to the hospital. Summary ? Vomiting is when stomach contents forcefully come out of the mouth. Vomiting can cause you to become dehydrated. ? It is important to treat vomiting as told by your health care provider. Follow your health care provider's instructions about eating and drinking. ? Wash your hands often using soap and water for at least 20 seconds. If soap and water are not available, use hand bedspread folder. ? Watch your condition for any changes and for signs of dehydration. ? Keep all follow-up visits. This is important. This information is not intended to replace advice given to you by your health care provider. Make sure you discuss any questions you have with your health care provider. Document Revised: 01/18/2022 Document Reviewed: 01/18/2022 Elsevier Patient Education ? 2022 [employer] Normal [facility] ED Patient Summaryon 023 ED Patient Summary (Inserted Image. Paola ble to display) [address] [address] Patient Discharge Instructions Person Information Name: SCARLET DURAND Age: 23 Years Arrival Date: 07/13/2023 15:21:36 Discharge Diagnosis: 1:Nausea, vomiting and diarrhea; Diarrhea, unspecified Primary Care Physician: DOREEN HA CNP Provider Information Primary Provider: Ashley Faustin M.D. Advanced Food Service Associate:Nori Wayne PA-C The exam and treatment you received in the Emergency Department were for an urgent problem and are not intended as complete care. It is important that you follow up with a doctor, nurse practitioner, or physician?s web assistant for ongoing care. If your symptoms become worse or you do not improve as expected and you are unable to reach your usual health care provider, you should return to the Emergency Department. We are available 24 hours a day. SCARLET DURAND has been given the following list of patient education materials, prescriptions and follow-up instructions: Follow-up Instructions: With: Address: When: DOREEN Burn[address]ymour Gonzalez [place] [phone] Business (1) In 3 days In the event that this physician does not participate in your insurance network, please consult with your insurance company to find a nearby participating provider. Patient Education Materials: Vomiting, Adult A MESSAGE TO ALL PATIENTS REGARDING OPIOIDS PRESCRIPTION OPIOIDS: WHAT YOU NEED TO KNOW Prescription opioids can be used to help relieve izfjzbgb-gm-kcfxgh pain and are often prescribed following a surgery or injury, or for certain health conditions. These medications can be an important part of the treatment but also come with serious risks. It is important to work with your healthcare provider to make sure you are getting the safest, most effective care. WHAT ARE THE RISKS AND SIDE EFFECTS OF OPIOID USE? Prescription opioids carry serious risks of addiction and overdose, especially with prolonged use. An opioid overdose, often marked by slowed breathing, can cause sudden . The use of prescription opioids can have a number of side effects as well, even when taken as directed: ? Tolerance?meaning you might need to take more of the medication for the same pain relief ? Physical dependence?meaning you have symptoms of withdrawal when a medication is stopped ? Increased sensitivity to pain ? Constipation ? Nausea, vomiting, and dry mouth ? Sleepiness and dizziness ? Confusion ? Depression ? Low levels of testosterone that can result in lower sex drive, energy, and strength ? Itching and sweating RISKS ARE GREATER WITH: ? History of drug misuse, substance use disorder, or overdose ? Mental health conditions (such as depression or anxiety) ? Sleep apnea ? Older age (65 years and older) ? Avoid alcohol while taking prescription opioids. Also, unless specifically advised by your health care provider, medications to avoid include: ? Benzodiazepines (such as Xanax or Valium) ? Muscle relaxants (such as Soma or Flexeril) ? Hypnotics (such as Ambien or Lunesta) ? Other prescription opioids KNOW YOUR OPTIONS Talk to your health care provider about ways to manage your pain that don?t involve prescription opioids. Some of these options may actually work better and have fewer risks and side effects. Options may include: ? Pain relievers such as acetaminophen, ibuprofen, and naproxen ? Some medication that are also used for depression or seizures ? Physical therapy and exercise ? Cognitive behavioral therapy, a psychological, goal-directed approach, in which patients learn how to modify physical, behavioral, and emotional triggers of pain and stress. IF YOU ARE PRESCRIBED OPIOIDS FOR PAIN: ? Never take opioids in greater amounts or more often than prescribed. ? Follow up with your primary health care provider. o Work together to create a plan on how to manage your pain. o Talk about ways to help manage your pain that don?t involve prescription opioids. o Talk about any and all concerns and side effects. ? Help prevent misuse and abuse o Never sell or share prescription opioids. o Never use another person?s prescription opioids. ? Store prescription opioids in a secure place and out of reach of others (this may include visitors, children, friends, and family). ? Safely dispose of unused prescription opioids: Find your community drug take-back program or your pharmacy mail-back program, or flush them down the toilet, following guidance from the Food and Drug Administration (www.fda.gov/Drugs/Reso RaymundoAlbertu). ? Visit www.cdc.gov/drugoverdos e to learn about the risks of opioids abuse and overdose. ? If you believe you may be struggling with addiction, tell your health care tech and ask for guidance or call [facility] National Helpline (more content not included)... Normal [facility] MICRO OTHER TESTSOrdered By: Marie Torres on 07-13-2023 S. pyogenes Ag IA.rapid Ql (Throat) Negative (07/13/23 4:29 PM) Normal Negative [facility] Man Sero Rapid Strep w/rfxon 07-13-20 S. pyogenes Ag IA.rapid Ql (Throat) Negative Normal Negative [facility] Comment on above: Performed By: #### 2 [id number], [id number] ####[facility] [address] [place] [address] Consent for Treatmenton 05-28 Consent for Treatment [id number] IFF Normal [facility] Discharge Instructionson Discharge Instructions [id number] IFF Normal [facility] ED Clinical Summaryon 2022 ED Clinical Summary (Inserted Image. Paola ble to display) [address] [address] ED Clinical Summary Person Information Name: SCARLET DURAND/[facility]_Julian Age: 23 Years : 2000 Sex: Female Language: Tuvaluan PCP: DOREEN HA CNP Marital Status: Phone: [phone] Visit Id: Visit Reason: Foot pain-swelling; LEFT FOOT PAIN Speciality: Acuity: 4 Enc Type: Emergency Med Service: Emergency Arrival: 06/13/2023 17:02:41 Discharge: 06/13/2023 18:27:17 LOS: 000 01:25 Checkin: 06/13/2023 17:02:41 Checkout: 06/13/2023 18:27:17 Dispo Type: Home (Routine DC) EVENTS: Event Name Event Status Request Date/Time Start Date/Time Complete Date/Time Arrive Complete 06/13/2023 17:02:41 06/13/2023 17:02:41 06/13/2023 17:02:41 Document Home Meds Request 06/13/2023 17:02:41 Triage Complete 06/13/2023 17:02:41 06/13/2023 17:20:26 06/13/2023 17:20:26 Registration Complete 06/13/2023 17:07:29 06/13/2023 17:07:29 06/13/2023 17:07:29 Reg Complete Request 06/13/2023 17:07:29 Reg Bed Request Complete 06/13/2023 17:07:29 06/13/2023 17:07:29 06/13/2023 17:07:29 Bed Assign Complete 06/13/2023 17:16:00 06/13/2023 17:16:00 06/13/2023 17:16:00 Dr Exam Complete 06/13/2023 17:16:00 06/13/2023 17:17:57 06/13/2023 17:17:57 RN Exam Complete 06/13/2023 17:16:00 06/13/2023 17:40:26 06/13/2023 17:40:26 Registration Request 06/13/2023 17:17:57 Dr Exam Complete 06/13/2023 17:18:04 06/13/2023 17:18:04 06/13/2023 17:18:04 Workers Comp Request 06/13/2023 17:20:27 X-Ray Complete 06/13/2023 17:20:32 06/13/2023 17:50:03 06/13/2023 17:56:06 Dr Exam Complete 06/13/2023 17:21:00 06/13/2023 17:21:00 06/13/2023 17:21:00 Wet Read Request 06/13/2023 17:56:06 Patient Care Request 06/13/2023 18:12:52 Discharge Complete 06/13/2023 18:13:09 06/13/2023 18:27:25 06/13/2023 18:27:25 Transfer Complete 06/13/2023 18:27:25 06/13/2023 18:27:25 06/13/2023 18:27:25 ADDRESS: [address] [facility] [phone] PHYS DOC NOTES: MEDICAL INFORMATION: Prescriptions Given: Medications to Continue Taking That Have Changed [id number], [address] [place], [place] [id number], [phone] START: naproxen (Naprosyn 500 mg Tab) 1 Tablets By Mouth 2 times a day. Refills: 0. Other Medications START: naproxen (Naprosyn 500 mg Tab) 1 Tablets By Mouth 2 times a day as needed for pain. Refills: 0. START: naproxen (naproxen 500 mg Tab) 1 Tablets By Mouth 2 times a day. Take one tab by mouth two times a day. Refills: 0. Medications to Continue with No Changes Other Medications ibuprofen (ibuprofen 600 mg Tab) 1 Tablets By Mouth every 6 hours. Refills: 0. 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 History of Present Illness 23-year-old female comes to the ED for evaluation of left foot pain. She had a pallet fall onto the dorsal aspect of her left foot earlier today. She presents with pain to that area. The pain does radiate up the leg. She had to bear weight but with difficulty. No other complaints or concerns. No prior treatments. No concern for . Review of Systems A 10 point review of systems is negative except as noted above. Medical and Surgical History: Reviewed and noted Social history: Lives at home Tobacco: Denies Physical Exam Vitals & Measurements T: 36.6 ?C(Oral) HR: 110(Peripheral) RR: 18 BP: 130/86 SpO2: 100% HT: 163 cm WT: 117.9 kg BMI: 44.38 Nurses notes and vital signs reviewed and patient is not hypoxic. General: The patient appears well, resting comfortably. Skin: Warm, dry. Head: Atraumatic. Neck: No JVD. Eye: Normal conjunctiva. Ears, Nose, Mouth, and Throat: Moist mucous membranes. Cardiovascular: Strong distal pulses. Chest wall: Respiratory: Respirations are nonlabored. Back: Normal range of motion. Musculoskeletal: Tenderness over the dorsal aspect of the left foot. Skin is intact. No ecchymosis or erythema. No soft tissue swelling. Good pedal pulses. No tenderness of the ankle.. Gastrointestinal: Urological: Neurological: Awake and alert. No focal deficits. Follows commands. Psychiatric: Cooperative. Medical Decision Making X-rays show no evidence of fracture or dislocation. The diagnostic limitation of x-rays were discussed. It was explained that follow-up imaging may be necessary. Patient is prescribed anti-inflammatories. Patient reports this is a workers comp claim and is given 500px followup. Patient was encouraged to return to the ED if symptoms worsen or change. Splinting procedure Patient was placed in Luiz wrap and post op shoe by nursing staff. Remains neurovascular intact. Assessment/Plan Foot contusion (S90.30XA: Contusion of unspecified foot, initial encounter) Orders: naproxen, 500 mg = 1 tab(s), Oral, BID, # 20 tab(s), Refills(s) 0, Pharmacy: [facility], 163, cm, 06/13/23 17:20:00 EST, Height/Length Dosing, 117.9, kg, 06/13/23 17:20:00 EST, Weight Dosing Luiz Wrap Post-op Shoe XR Foot 3+ Views Left Disposition Plan Patient Discharge Condition Disposition: Discharged home Condition: Improved and stable Counseled: Patient and/or family were counseled to workup, results, treatment plan and follow-up recommendations Discharge Prescription List Prescriptions Naprosyn 500 mg Tab, 500 mg= 1 tab(s), Oral, BID Follow-up With When Contact Information Occupational Health: [facility] [phone] In 3 days 06/16/2023 EST Additional Instructions: Patient Education Foot Contusion Attestation Patient seen and evaluated by the physician web assistant. Attending physician was present in the emergency department and supervised care. This visit was performed by both the physician and an APC. I performed all aspects of the MDM as documented. This report was transcribed using voice recognition software. Every effort was made to ensure accuracy, however, inadvertently computerized billposter mistakes may be present. Appropriate healthcare PPE was used in evaluating this patient. The patient was placed in a mask. The healthcare provider was wearing mask, gloves, and utilizing proper hand hygiene. All equipment was properly cleansed. Problem List/Past Medical History Ongoing Adult BMI 40.0-44.9 kg/sq m Anxiety and depression Back pain with radiculopathy Bilateral arm pain Bipolar 1 disorder, mixed, moderate BMI 45.0-49.9, adult Class 3 severe obesity due to excess calories with body mass index (BMI) of 40.0 to 44.9 in adult Fatigue GDM (gestational diabetes mellitus) Marijuana use Mental disorder in , antepartum Morbid obesity Neuropathy Obesity complicating , second trimester PTSD (post-traumatic stress disorder) Shoulder pain, bilateral Smoker Supervision of high risk in second trimester Historical Amenorrhea Contraceptive management None Smoker 27-JAN-2014 12:37:00<$> Procedure/Surgical History None. Medications Inpatient No active inpatient medications Home ibuprofen 600 mg Tab, 600 mg= 1 tab(s), Oral, q6hr Naprosyn 500 mg Tab, 500 mg= 1 tab(s), Oral, BID, PRN naproxen 500 mg Tab, 500 mg= 1 tab(s), Oral, BID Multivitamins with Folic Acid 1.25 mg oral tablet Allergies No Known Allergies Social History Alcohol - Denies Alcohol Use, 01/09/2014 DENIES, 10/09/2020 Employment/School - Not employed or in school, 01/27/2018 Unemployed, 01/08/2018 Home/Environment - Low Risk, 01/27/2018 Lives with grandparent. Ron (more content not included)... Normal [facility] Comment on above: Result Comment: Elec tronically Signed By: Lukas Hernandez PA-C\.br\Date and Time Signed: 06/13/23 18:15 EST\.br\Electronically Co-Signed By: Bi Galeana DO\.br\Date and Time Co-Signed: 06/13/23 19:21 EST ED Patient Education Noteon 06-13-2023 ED Patient Education Note Orthopedics Foot Contusion A foot contusion is a deep bruise to the foot. Contusions are the result of an injury to tissues and muscle fibers under the skin. The injury causes bleeding under the skin. The skin over the contusion may turn blue, purple, or yellow. Minor injuries will cause a painless contusion, but more severe contusions may stay painful and swollen for a few weeks. What are the causes? This condition is usually caused by a hard hit or direct force to your foot, such as having a heavy object fall on your foot. What are the signs or symptoms? Symptoms of this condition include: ? Swelling of the foot. ? Pain and tenderness of the foot. ? Discoloration of the foot. The area may have redness and then turn blue, purple, or yellow. How is this diagnosed? This condition may be diagnosed based on: ? Your medical history. ? A physical exam. In some cases, imaging tests may be done to check for other injuries. These may include: ? An X-ray to check for broken bones (fractures). ? CT scan or MRI to check for torn or injured ligaments. How is this treated? In general, the best treatment for a foot contusion is rest, ice, pressure (compression), and elevation. This is often called RICE therapy. An elastic wrap may be recommended to support your foot. Zepr-ssa-ludntqc anti-inflammatory medicines may also be recommended for pain control. If your swelling or pain is severe, you may be given crutches. Follow these instructions at home: RICE therapy ? Rest the injured area. Try to avoid standing or walking while your foot is painful. ? If directed, put ice on the injured area. ? Put ice in a plastic bag. ? Place a towel between your skin and the bag. ? Leave the ice on for 20 minutes, 2?3 times a day. ? If directed, apply light compression to the injured area using an elastic wrap. Make sure the wrap is not too tight. Remove and reapply the wrap as told by your health care provider. If your toes become numb, cold, or blue, take the wrap off and reapply it more loosely. ? Raise (elevate) the injured area above the level of your heart while you are sitting or lying down. General instructions ? Take gjeh-rao-yxqplsm and prescription medicines only as told by your health care provider. ? Use crutches as told by your health care provider, if this applies. Do not use the injured foot to support your body weight until your health care provider says that you can. ? Do not use any products that contain nicotine or tobacco, such as cigarettes, e-cigarettes, and chewing tobacco. These can delay healing. If you need help quitting, ask your health care provider. ? Keep all follow-up visits as told by your health care provider. This is important. Contact a health care provider if: ? Your symptoms do not improve after several days of treatment. ? You have redness, swelling, or pain in your foot or toes. ? You have difficulty moving the injured area. ? Your swelling or pain is not relieved with medicines. Get help right away if: ? You have severe pain. ? Your foot or toes become numb. ? Your foot or toes become pale or cold. ? You cannot move your foot or ankle. ? Your foot is warm to the touch. Summary ? A foot contusion is a deep bruise to the foot. ? This condition is usually caused by a hard hit or direct force to your foot. ? Symptoms include swelling, pain, and discoloration in the injured area. ? In general, the best treatment for a foot contusion is rest, ice, pressure (compression), and elevation. This information is not intended to replace advice given to you by your health care provider. Make sure you discuss any questions you have with your health care provider. Document Revised: 10/17/2021 Document Reviewed: 10/17/2021 Elsevier Patient Education ? 2022 [employer] Normal [facility] ED Patient Summaryon 023 ED Patient Summary (Inserted Image. Paola ble to display) [address] [address] Patient Discharge Instructions Person Information Name: SCARLET DURAND Age: 23 Years Arrival Date: 06/13/2023 17:02:41 Discharge Diagnosis: Foot contusion Primary Care Physician: DOREEN HA CNP Provider Information Primary Provider: Bi Galeana DO Advanced Food Service Associate:Lukas Hernandez PA-C The exam and treatment you received in the Emergency Department were for an urgent problem and are not intended as complete care. It is important that you follow up with a doctor, nurse practitioner, or physician?s web assistant for ongoing care. If your symptoms become worse or you do not improve as expected and you are unable to reach your usual health care provider, you should return to the Emergency Department. We are available 24 hours a day. SCARLET DURAND has been given the following list of patient education materials, prescriptions and follow-up instructions: Follow-up Instructions: With: Address: When: Occupational Health: [facility] [phone] In 3 days 06/16/2023 In the event that this physician does not participate in your insurance network, please consult with your insurance company to find a nearby participating provider. Patient Education Materials: Foot Contusion A MESSAGE TO ALL PATIENTS REGARDING OPIOIDS PRESCRIPTION OPIOIDS: WHAT YOU NEED TO KNOW Prescription opioids can be used to help relieve mbtccsst-ci-ziwdse pain and are often prescribed following a surgery or injury, or for certain health conditions. These medications can be an important part of the treatment but also come with serious risks. It is important to work with your healthcare provider to make sure you are getting the safest, most effective care. WHAT ARE THE RISKS AND SIDE EFFECTS OF OPIOID USE? Prescription opioids carry serious risks of addiction and overdose, especially with prolonged use. An opioid overdose, often marked by slowed breathing, can cause sudden . The use of prescription opioids can have a number of side effects as well, even when taken as directed: ? Tolerance?meaning you might need to take more of the medication for the same pain relief ? Physical dependence?meaning you have symptoms of withdrawal when a medication is stopped ? Increased sensitivity to pain ? Constipation ? Nausea, vomiting, and dry mouth ? Sleepiness and dizziness ? Confusion ? Depression ? Low levels of testosterone that can result in lower sex drive, energy, and strength ? Itching and sweating RISKS ARE GREATER WITH: ? History of drug misuse, substance use disorder, or overdose ? Mental health conditions (such as depression or anxiety) ? Sleep apnea ? Older age (65 years and older) ? Avoid alcohol while taking prescription opioids. Also, unless specifically advised by your health care provider, medications to avoid include: ? Benzodiazepines (such as Xanax or Valium) ? Muscle relaxants (such as Soma or Flexeril) ? Hypnotics (such as Ambien or Lunesta) ? Other prescription opioids KNOW YOUR OPTIONS Talk to your health care provider about ways to manage your pain that don?t involve prescription opioids. Some of these options may actually work better and have fewer risks and side effects. Options may include: ? Pain relievers such as acetaminophen, ibuprofen, and naproxen ? Some medication that are also used for depression or seizures ? Physical therapy and exercise ? Cognitive behavioral therapy, a psychological, goal-directed approach, in which patients learn how to modify physical, behavioral, and emotional triggers of pain and stress. IF YOU ARE PRESCRIBED OPIOIDS FOR PAIN: ? Never take opioids in greater amounts or more often than prescribed. ? Follow up with your primary health care provider. o Work together to create a plan on how to manage your pain. o Talk about ways to help manage your pain that don?t involve prescription opioids. o Talk about any and all concerns and side effects. ? Help prevent misuse and abuse o Never sell or share prescription opioids. o Never use another person?s prescription opioids. ? Store prescription opioids in a secure place and out of reach of others (this may include visitors, children, friends, and family). ? Safely dispose of unused prescription opioids: Find your community drug take-back program or your pharmacy mail-back program, or flush them down the toilet, following guidance from the Food and Drug Administration (www.fda.gov/Drugs/Reso urcesForYou). ? Visit www.cdc.gov/drugoverdos e to learn about the risks of opioids abuse and overdose. ? If you believe you may be struggling with addiction, tell your health care tech and ask for guidance or call [employer]?S National Helpline at 7-269-424-HELP. v Source: [place] Department of Health and Human Services/[place] (more content not included)... Normal [facility] Workers Comp Formson 023 Workers Comp Forms [id number] IFF Normal [facility] XR Foot 3+ Views Lefton 05-28 XR Foot 3+ Views Left Exam Date/Time: 06/13/2023 17:56 EST Reason for Exam: Pain, Traumatic Report IMPRESSION: NO DISPLACED FRACTURE OR SIGNIFICANT POSTTRAUMATIC COMPLICATION IDENTIFIED. EXAM: XR Foot 3+ Views Left DATE: 06/13/2023 5:50 PM CLINICAL HISTORY: Pain, Traumatic. COMPARISON: 12/03/2022 TECHNIQUE: AP, lateral and oblique radiographs of the left foot were obtained. FINDINGS: There is no fracture, significant degenerative changes, dislocation, worrisome bone destruction, radiodense foreign bodies, or other posttraumatic complication identified. Ordering Provider: Lukas Hernandez FINAL REPORT Dictated: 06/13/2023 7:57 pm Abdulkadir Brink MD Signed (Electronic Signature): 06/13/2023 7:57 pm Signed by: Abdulkadir Brink MD Transcribed by: SURINDER Technologist: GREGORY Technical Comments Radiation Dose: Kar in mGy = na DAP = na Normal [facility] Consenton 05-15-2023 Consent [id number] TIFF Normal [facility] Registrationon 05-15-2023 Registration [id number] TIFF Normal [facility] Consent for Treatmenton 03-29 Consent for Treatment [id number]#1.00C D:127 Normal [facility] Discharge Instructionson Discharge Instructions [id number]#1.00 CD:127 Normal [facility] ED Clinical Summaryon 2022 ED Clinical Summary (Inserted Image. Paola ble to display) [address] [address] ED Clinical Summary Person Information Name: ROMELIA SCARLETLizbeth Burns/[facility] Age: 23 Years : 2000 Sex: Female Language: Tuvaluan PCP: NONE, XXXX Marital Status: Phone: [phone] Visit Id: Visit Reason: Throat pain - Adult; Fever; FEVER / DIFFICULTY SWALLOWING Speciality: Acuity: 3 Enc Type: Emergency Med Service: Emergency Arrival: 04/24/2023 09:32:05 Discharge: 04/24/2023 10:56:20 LOS: 000 01:24 Checkin: 04/24/2023 09:32:05 Checkout: 04/24/2023 10:56:20 Dispo Type: Home (Routine DC) EVENTS: Event Name Event Status Request Date/Time Start Date/Time Complete Date/Time Arrive Complete 04/24/2023 09:32:05 04/24/2023 09:32:05 04/24/2023 09:32:05 Document Home Meds Request 04/24/2023 09:32:05 Triage Complete 04/24/2023 09:32:05 04/24/2023 09:56:14 04/24/2023 09:56:14 Dr Exam Complete 04/24/2023 09:56:48 04/24/2023 09:56:48 04/24/2023 09:56:48 Registration Complete 04/24/2023 09:56:48 04/24/2023 09:56:57 04/24/2023 10:23:00 Bed Assign Complete 04/24/2023 09:56:57 04/24/2023 09:56:57 04/24/2023 09:56:57 RN Exam Complete 04/24/2023 09:56:57 04/24/2023 10:15:00 04/24/2023 10:15:00 Dr Exam Complete 04/24/2023 10:05:02 04/24/2023 10:05:02 04/24/2023 10:05:02 Meds Admin Complete 04/24/2023 10:14:23 04/24/2023 10:45:06 Discharge Complete 04/24/2023 10:16:22 04/24/2023 10:56:30 04/24/2023 10:56:30 Reg Complete Request 04/24/2023 10:23:00 Reg Bed Request Complete 04/24/2023 10:23:00 04/24/2023 10:23:00 04/24/2023 10:23:00 Transfer Complete 04/24/2023 10:56:30 04/24/2023 10:56:30 04/24/2023 10:56:30 ADDRESS: [address] [facility] [phone] PHYS DOC NOTES: MEDICAL INFORMATION: Prescriptions Given: New Medications [id number], [address] [place], [place] [phone], [phone] azithromycin (azithromycin 250 mg Tab 5-day Dose Pack (Z-Rafi)) 1 Packets By Mouth As Directed for 5 Days. as directed on package labeling. Refills: 0. Medications to Continue with No Changes Other Medications ibuprofen (ibuprofen 600 mg Tab) 1 Tablets By Mouth every 6 hours. Refills: 0. multivitamin, ( Multivitamins with Folic Acid 1.25 mg oral tablet) naproxen (Naprosyn 500 mg Tab) 1 Tablets By Mouth 2 times a day as needed for pain. Refills: 0. naproxen (naproxen 500 mg Tab) 1 Tablets By Mouth 2 times a day. Take one tab by mouth two times a day. Refills: 0. PATIENT EDUCATION INFORMATION: Instructions: Pharyngitis Follow up: With: Address: [facility] [address] [place], [place] [phone] Business (1) In 3 days 04/27/2023 DIAGNOSIS: Pharyngitis Normal [facility] ED Note-Physicianon 04-24-20 ED Note-Physician Basic Information Time Seen: Lukas Hernandez PA-C 04/24/2023 09:56 Chief Complaint Sore throat. fevers History of Present Illness 23-year-old female comes to the ED for evaluation of a sore throat. She had some pain yesterday, worse this morning. She complains of pain with swallowing but no difficulty doing so. No associated chest pain or shortness of breath. She has had subjective fevers. She had nausea but no vomiting. No cough. No known sick exposures. No prior treatments. No concern for . Review of Systems A 10 point review of systems is negative except as noted above. Medical and Surgical History: Reviewed and noted Social history: Lives at home Tobacco: Denies Physical Exam Vitals & Measurements T: 37.7 ?C(Oral) HR: 121(Peripheral) RR: 20 BP: 135/97 SpO2: 96% HT: 163 cm WT: 118 kg BMI: 44.41 Nurses notes and vital signs reviewed and patient is not hypoxic. General: The patient appears well, resting comfortably. Skin: Warm, dry. Head: Atraumatic. Neck: No JVD. Eye: Normal conjunctiva. Ears, Nose, Mouth, and Throat: Moist mucous membranes. Moderate pharyngeal erythema with bilateral tonsillar hypertrophy and exudates. Uvula is midline. No stridor, trismus or drooling. No abscess formation. No lymphadenopathy. Cardiovascular: Strong distal pulses. Chest wall: Respiratory: Respirations are nonlabored. Back: Normal range of motion. Musculoskeletal: Normal ROM with no gross deformity. Gastrointestinal: Urological: Neurological: Awake and alert. No focal deficits. Follows commands. Psychiatric: Cooperative. Medical Decision Making Patient presents with pharyngeal erythema, tonsil hypertrophy and exudates. She has pain with swallowing or difficulty doing so. There is no airway compromise or abscess formation. She is treated here with dexamethasone and starting oral antibiotics. Discharged to follow-up with PCP. Patient was encouraged to return to the ED if symptoms worsen or change. Assessment/Plan Pharyngitis (J02.9: Acute pharyngitis, unspecified) Orders: azithromycin, = 1 packet(s), Oral, As Directed, as directed on package labeling, X 5 day(s), # 6 tab(s), Refills(s) 0, Pharmacy: [facility], 163, cm, 04/24/23 9:56:00 EDT, Height/Length Dosing, 118, kg, 04/24/23 9:56:00 EDT, Weight Dosing dexamethasone, 10 mg = 2.5 mL, Injection, Oral, Once, Stop date 04/24/23 10:14:00 EDT, STAT, Start date 04/24/23 10:14:00 EDT, 04/24/23 10:14:00 EDT Disposition Plan Patient Discharge Condition Disposition: Discharged home Condition: Improved and stable Counseled: Patient and/or family were counseled to workup, results, treatment plan and follow-up recommendations Discharge Prescription List Prescriptions azithromycin 250 mg Tab 5-day Dose Pack (Z-Rafi), 1 packet(s), Oral, As Directed Follow-up With When Contact Information Daniella Floyd In 3 days 04/27/[address] [place] [phone] Business (1) Additional Instructions: Patient Education Pharyngitis Attestation Patient seen and evaluated by the physician web assistant. Attending physician was present in the emergency department and supervised care. This visit was performed by both the physician and an APC. I performed all aspects of the MDM as documented. This report was transcribed using voice recognition software. Every effort was made to ensure accuracy, however, inadvertently computerized billposter mistakes may be present. Appropriate healthcare PPE was used in evaluating this patient. The patient was placed in a mask. The healthcare provider was wearing mask, gloves, and utilizing proper hand hygiene. All equipment was properly cleansed. Problem List/Past Medical History Ongoing Adult BMI 40.0-44.9 kg/sq m Anxiety and depression Back pain with radiculopathy Bilateral arm pain Bipolar 1 disorder, mixed, moderate BMI 45.0-49.9, adult Class 3 severe obesity due to excess calories with body mass index (BMI) of 40.0 to 44.9 in adult Fatigue GDM (gestational diabetes mellitus) Marijuana use Mental disorder in , antepartum Morbid obesity Neuropathy Obesity complicating , second trimester PTSD (post-traumatic stress disorder) Shoulder pain, bilateral Smoker Supervision of high risk in second trimester Historical Amenorrhea Contraceptive management None Smoker 27-JAN-2014 12:37:00<$> Procedure/Surgical History None. Medications Inpatient dexamethasone 4 mg/mL Inj 1 mL, 10 mg= 2.5 mL, Oral, Once Home azithromycin 250 mg Tab 5-day Dose Pack (Z-Rafi), 1 packet(s), Oral, As Directed ibuprofen 600 mg Tab, 600 mg= 1 tab(s), Oral, q6hr Naprosyn 500 mg Tab, 500 mg= 1 tab(s), Oral, BID, PRN naproxen 500 mg Tab, 500 mg= 1 tab(s), Oral, BID Multivitamins with Folic Acid 1.25 mg oral tablet Allergies No Known Allergies Social History Alcohol - Denies Alcohol Use, (more content not included)... Normal [facility] Comment on above: Result Comment: Elec tronically Signed By: Lukas Hernandez PA-C\.br\Date and Time Signed: 04/24/23 10:26 EDT\.br\Electronically Co-Signed By: Ashley Faustin M.D.\.br\Date and Time Co-Signed: 04/24/23 16:36 EDT ED Patient Education Noteon 04-24-2023 ED Patient Education Note Infectious Disease Pharyngitis Pharyngitis is inflammation of the throat (pharynx). It is a very common cause of sore throat. Pharyngitis can be caused by a bacteria, but it is usually caused by a virus. Most cases of pharyngitis get better on their own without treatment. What are the causes? This condition may be caused by: ? Infection by viruses (viral). Viral pharyngitis spreads easily from person to person (is contagious) through coughing, sneezing, and sharing of personal items or utensils such as cups, forks, spoons, and toothbrushes. ? Infection by bacteria (bacterial). Bacterial pharyngitis may be spread by touching the nose or face after coming in contact with the bacteria, or through close contact, such as kissing. ? Allergies. Allergies can cause buildup of mucus in the throat (post-nasal drip), leading to inflammation and irritation. Allergies can also cause blocked nasal passages, forcing breathing through the mouth, which dries and irritates the throat. What increases the risk? You are more likely to develop this condition if: ? You are 5?24 years old. ? You are exposed to crowded environments such as daycare, school, or dormitory living. ? You live in a cold climate. ? You have a weakened disease-fighting (immune) system. What are the signs or symptoms? Symptoms of this condition vary by the cause. Common symptoms of this condition include: ? Sore throat. ? Fatigue. ? Low-grade fever. ? Stuffy nose (nasal congestion) and cough. ? Headache. Other symptoms may include: ? Glands in the neck (lymph nodes) that are swollen. ? Skin rashes. ? Plaque-like film on the throat or tonsils. This is often a symptom of bacterial pharyngitis. ? Vomiting. ? Red, itchy eyes (conjunctivitis). ? Loss of appetite. ? Joint pain and muscle aches. ? Enlarged tonsils. How is this diagnosed? This condition may be diagnosed based on your medical history and a physical exam. Your health care provider will ask you questions about your illness and your symptoms. A swab of your throat may be done to check for bacteria (rapid strep test). Other lab tests may also be done, depending on the suspected cause, but these are rare. How is this treated? Many times, treatment is not needed for this condition. Pharyngitis usually gets better in 3?4 days without treatment. Bacterial pharyngitis may be treated with antibiotic medicines. Follow these instructions at home: Medicines ? Take ksmb-poa-cwrqjmz and prescription medicines only as told by your health care provider. ? If you were prescribed an antibiotic medicine, take it as told by your health care provider. Do not stop taking the antibiotic even if you start to feel better. ? Use throat sprays to soothe your throat as told by your health care provider. ? Children can get pharyngitis. Do not give your child aspirin because of the association with Maritza's syndrome. Managing pain To help with pain, try: ? Sipping warm liquids, such as broth, herbal tea, or warm water. ? Eating or drinking cold or frozen liquids, such as frozen ice pops. ? Gargling with a mixture of salt and water 3?4 times a day or as needed. To make salt water, completely dissolve ??1 tsp (3?6 g) of salt in 1 cup (237 mL) of warm water. ? Sucking on hard candy or throat lozenges. ? Putting a cool-mist humidifier in your bedroom at night to moisten the air. ? Sitting in the bathroom with the door closed for 5?10 minutes while you run hot water in the shower. General instructions ? Do not use any products that contain nicotine or tobacco. These products include cigarettes, chewing tobacco, and vaping devices, such as e-cigarettes. If you need help quitting, ask your health care provider. ? Rest as told by your health care provider. ? Drink enough fluid to keep your urine pale yellow. How is this prevented? To help prevent becoming infected or spreading infection: ? Wash your hands often with soap and water for at least 20 seconds. If soap and water are not available, use hand bedspread folder. ? Do not touch your eyes, nose, or mouth with unwashed hands, and wash hands after touching these areas. ? Do not share cups or eating utensils. ? Avoid close contact with people who are sick. Contact a health care provider if: ? You have large, tender lumps in your neck. ? You have a rash. ? You cough up green, yellow-brown, or bloody mucus. Get help right away if: ? Your neck becomes stiff. ? You drool or are unable to swallow liquids. ? You cannot drink or take medicines without vomiting. ? You have severe pain that does not go away, even after you take medicine. ? You have trouble breathing, and it is not caused by a stuffy nose. ? You have new pain and swelling in your joints such as the knees, ankles, wrists, or elbows. These symptoms may represent a serious problem that is a (more content not included)... Normal [facility] ED Patient Summaryon 023 ED Patient Summary (Inserted Image. Paola ble to display) [place] [id number] Patient Discharge Instructions Person Information Name: SCARLET DURAND Age: 23 Years Arrival Date: 04/24/2023 09:32:05 Discharge Diagnosis: Pharyngitis Primary Care Physician: NONE, XXXX Provider Information Primary Provider: Ashley Faustin M.D. Advanced Food Service Associate:Lukas Hernandez PA-C The exam and treatment you received in the Emergency Department were for an urgent problem and are not intended as complete care. It is important that you follow up with a doctor, nurse practitioner, or physician?s web assistant for ongoing care. If your symptoms become worse or you do not improve as expected and you are unable to reach your usual health care provider, you should return to the Emergency Department. We are available 24 hours a day. SCARLET DURAND has been given the following list of patient education materials, prescriptions and follow-up instructions: Follow-up Instructions: With: Address: When: Dan[address] [place] [phone] Business (1) In 3 days 04/27/2023 In the event that this physician does not participate in your insurance network, please consult with your insurance company to find a nearby participating provider. Patient Education Materials: Pharyngitis A MESSAGE TO ALL PATIENTS REGARDING OPIOIDS PRESCRIPTION OPIOIDS: WHAT YOU NEED TO KNOW Prescription opioids can be used to help relieve hazsftoy-md-cedgpj pain and are often prescribed following a surgery or injury, or for certain health conditions. These medications can be an important part of the treatment but also come with serious risks. It is important to work with your healthcare provider to make sure you are getting the safest, most effective care. WHAT ARE THE RISKS AND SIDE EFFECTS OF OPIOID USE? Prescription opioids carry serious risks of addiction and overdose, especially with prolonged use. An opioid overdose, often marked by slowed breathing, can cause sudden . The use of prescription opioids can have a number of side effects as well, even when taken as directed: ? Tolerance?meaning you might need to take more of the medication for the same pain relief ? Physical dependence?meaning you have symptoms of withdrawal when a medication is stopped ? Increased sensitivity to pain ? Constipation ? Nausea, vomiting, and dry mouth ? Sleepiness and dizziness ? Confusion ? Depression ? Low levels of testosterone that can result in lower sex drive, energy, and strength ? Itching and sweating RISKS ARE GREATER WITH: ? History of drug misuse, substance use disorder, or overdose ? Mental health conditions (such as depression or anxiety) ? Sleep apnea ? Older age (65 years and older) ? Avoid alcohol while taking prescription opioids. Also, unless specifically advised by your health care provider, medications to avoid include: ? Benzodiazepines (such as Xanax or Valium) ? Muscle relaxants (such as Soma or Flexeril) ? Hypnotics (such as Ambien or Lunesta) ? Other prescription opioids KNOW YOUR OPTIONS Talk to your health care provider about ways to manage your pain that don?t involve prescription opioids. Some of these options may actually work better and have fewer risks and side effects. Options may include: ? Pain relievers such as acetaminophen, ibuprofen, and naproxen ? Some medication that are also used for depression or seizures ? Physical therapy and exercise ? Cognitive behavioral therapy, a psychological, goal-directed approach, in which patients learn how to modify physical, behavioral, and emotional triggers of pain and stress. IF YOU ARE PRESCRIBED OPIOIDS FOR PAIN: ? Never take opioids in greater amounts or more often than prescribed. ? Follow up with your primary health care provider. o Work together to create a plan on how to manage your pain. o Talk about ways to help manage your pain that don?t involve prescription opioids. o Talk about any and all concerns and side effects. ? Help prevent misuse and abuse o Never sell or share prescription opioids. o Never use another person?s prescription opioids. ? Store prescription opioids in a secure place and out of reach of others (this may include visitors, children, friends, and family). ? Safely dispose of unused prescription opioids: Find your community drug take-back program or your pharmacy mail-back program, or flush them down the toilet, following guidance from the Food and Drug Administration (www.fda.gov/Drugs/Reso urcesForYou). ? Visit www.cdc.gov/drugoverdos e to learn about the risks of opioids abuse and overdose. ? If you believe you may be struggling with addiction, tell your health care tech and ask for guidance or call [facility] National Helpline at 3-970-052-XAircraft. v Source: Department of Health and (more content not included)... Normal [facility] Vit D 1,25on 04-01-2023 1,25-dihydroxyvitamin D [Mass/Vol] 35.9 pg/mL Invalid Interpretation Code 24.8-81.5 [facility] Comment on above: Result Comment: Perf ormed at: [facility] [address] [id number] MD Enrike Oglesby Performed By: #### 1 [id number], [id number], 80469243, 3623731, 9141090, 8293749, 48933123, 9399861 ####[facility] [id number] [place] [address] Auto Diffon 03-27-2023 Basophils/100 WBC (Bld) 0.4 % Normal 0.0-2.0 [facility] Comment on above: Order Comment: Order Added by Discern Expert. Performed By: #### 1 [id number], 4128827, 24063129, 7821401, 7499742, 0944502, 47626812, 7892927 ####[place] [address] [place] [address] Basophils/Leukocytes Auto (Bld) [Pure # fraction] 0.0 E9/L Normal 0.0-0.2 [facility] Comment on above: Order Comment: Order Added by Discern Expert. Performed By: #### 1 1018443, 4950744, 82838009, 0749228, 0058289, 2297724, 52268478, 4405247 ####[place] [address] [place] [address] Eosinophils/100 WBC (Bld) 0.8 % Normal 0.0-8.0 [facility] Comment on above: Order Comment: Order Added by Discern Expert. Performed By: #### 1 5791124, 4916509, 39302687, 3604142, 8972112, 4875623, 85658334, 3852530 ####[place] [address] [place] [address] Eosinophils/Leukocytes Auto (Bld) [Pure # fraction] 0.1 E9/L Normal 0.0-0.5 [facility] Comment on above: Order Comment: Order Added by Discern Expert. Performed By: #### 1 7505362, 0369541, 24148922, 4391738, 2527346, 8176366, 99266683, 7217819 ####[place] [address] [place] [address] Lymphocytes/100 WBC (Bld) 26.4 % Normal 14.0-50.0 [facility] Comment on above: Order Comment: Order Added by Discern Expert. Performed By: #### 1 0319719, 1574339, 39515581, 5693302, 1599879, 7366125, 92552934, 4206803 ####[place] [address] [place] [address] Lymphocytes/Leukocytes Auto (Bld) [Pure # fraction] 2.3 E9/L Normal 1.0-4.0 [facility] Comment on above: Order Comment: Order Added by Discern Expert. Performed By: #### 1 7893347, 0047766, 56727368, 6825677, 2759539, 1950177, 78251858, 5411363 ####[place] [address] [place] [address] Monocytes/100 WBC (Bld) 4.5 % Normal 4.0-14.0 [facility] Comment on above: Order Comment: Order Added by Discern Expert. Performed By: #### 1 8169631, 1604130, 61754510, 1880918, 5446072, 0613356, 12141410, 7091981 ####[place] [address] [place] [address] Monocytes/Leukocytes Auto (Bld) [Pure # fraction] 0.4 E9/L Normal 0.2-1.0 [facility] Comment on above: Order Comment: Order Added by Trista Expert. Performed By: #### 1 4555175, 6642855, 75817639, 8812917, 7931224, 2546634, 13577205, 6437907 ####[place] [address] [place] [address] Neutrophils/100 WBC (Bld) 67.9 % Normal 36.0-75.0 [facility] Comment on above: Order Comment: Order Added by Trista Expert. Performed By: #### 1 4417253, 6450334, 85425347, 6441391, 0747510, 9596487, 88330664, 5194423 ####[place] [address] [place] [address] Neutrophils/Leukocytes Auto (Bld) [Pure # fraction] 5.9 E9/L Normal 2.0-7.5 [facility] Comment on above: Order Comment: Order Added by Trista Expert. Performed By: #### 1 2804702, 5741480, 27205763, 1694564, 9837317, 3835460, 92401341, 9947635 ####[place] [address] [place] [address] CBC w/ Auto Diffon 3 Erythrocyte distribution width (RBC) [Ratio] 15.4 % High 10.9-14.2 [facility] Comment on above: Performed By: #### 1 3723988, 3588614, 42084469, 5833383, 1493036, 3049239, 96653842, 4829276 ####[facility] [address] [place] [address] Hematocrit (Bld) [Volume fraction] 36.9 % Normal 34.0-46.0 [facility] Comment on above: Performed By: #### 1 3190955, 1750305, 09347265, 6758966, 4913760, 2330412, 02870645, 2031864 ####[facility] [address] [place] [address] Hemoglobin (Bld) [Mass/Vol] 11.8 g/dL Low 12.0-16.0 [facility] Comment on above: Performed By: #### 1 3895420, 2702281, 67479216, 5568471, 1781369, 3743540, 68573184, 1501660 ####[facility] [address] [place] [address] MCH (RBC) [Entitic mass] 24.9 pg Low 27.0-34.0 [facility] Comment on above: Performed By: #### 1 3846347, 9907119, 39833251, 4354816, 1235283, 5553463, 57595053, 1721917 ####[facility] [address] [place] [address] MCHC (RBC) [Mass/Vol] 31.9 g/dL Normal 31.4-36.0 [facility] Comment on above: Performed By: #### 1 7508353, 8214819, 89172435, 8807265, 4292901, 2267438, 45072188, 5989796 ####[facility] [address] [place] [address] MCV (RBC) [Entitic vol] 78.2 fL Low 80.0-100.0 [facility] Comment on above: Performed By: #### 1 6891927, 1633199, 55615362, 6336957, 0170731, 8989559, 42174036, 1754330 ####[place] [address] [place] [address] Platelet mean volume (Bld) [Entitic vol] 9.9 fL Normal 6.4-10.8 [facility] Comment on above: Performed By: #### 1 5102838, 7632302, 67028296, 7023451, 2455060, 4619072, 39268518, 0518520 ####[place] [address] [place] [address] Platelets (Bld) [#/Vol] 365.0 E9/L Normal 150.0-500.0 [facility] Comment on above: Performed By: #### 1 [id number], 7696075, 03506363, 2102432, 9104790, 6965325, 67062916, 2427142 ####[address] [address] RBC (Bld) [#/Vol] 4.7 E12/L Normal 4.3-5.9 [facility] Comment on above: Performed By: #### 1 2046501, 9959962, 48133996, 5973494, 7820721, 6664556, 72028482, 2284315 ####[address] [place] [address] WBC corrected for nucl RBC Auto (Bld) [#/Vol] 8.8 E9/L Normal 4.0-11.0 [facility] Comment on above: Performed By: #### 1 4358993, 2449617, 55960096, 6978178, 7557274, 5432834, 88192666, 7380144 ####[address] [place] [address] CMPon 03-27-2023 Albumin [Mass/Vol] 3.6 g/dL Normal 3.3-5.0 [facility] Comment on above: Performed By: #### 1 2122896, 5217739, 73305624, 1632424, 0590979, 7015229, 94126632, 6960904 ####[address] [place] [address] Albumin/Globulin (S) [Mass conc ratio] 1.0 Low 1.1-2.2 [facility] Comment on above: Performed By: #### 1 8903440, 3467546, 64468364, 6609153, 2394245, 2037261, 01728370, 4170638 ####[facility] [address] [place] [address] ALP [Catalytic activity/Vol] 61 Int._Unit/L Normal 21-98 [facility] Comment on above: Performed By: #### 1 3925393, 9101703, 45794330, 5983404, 8078461, 3506148, 34407555, 0365411 ####[address] [address] ALT No additional P-5'-P [Catalytic activity/Vol] 14 Int._Unit/L Normal 6-46 [facility] Comment on above: Performed By: #### 1 0629037, 1844184, 30195366, 6338792, 6929031, 8102732, 82663491, 9354004 ####[address] [place] [address] Anion gap [Moles/Vol] 10 mmol/L Normal 6-16 [facility] Comment on above: Performed By: #### 1 5628819, 7007924, 38763332, 2492319, 3243648, 8276340, 09370660, 0751264 ####[address] [place] [address] AST [Catalytic activity/Vol] 15 Int._Unit/L Normal 5-43 [facility] Comment on above: Performed By: #### 1 4030720, 5502361, 52997225, 2630128, 9036611, 9980917, 74795403, 1067149 ####[facility] [address] [place] [address] Bilirubin [Mass/Vol] 0.5 mg/dL Normal 0.0-1.1 [facility] Comment on above: Performed By: #### 1 7728938, 8038961, 09469228, 7964127, 8414325, 5678416, 39065304, 6550167 ####[facility] [address] [place] [address] Calcium [Mass/Vol] 9.4 mg/dL Normal 8.9-11.1 [facility] Comment on above: Performed By: #### 1 5622007, 2520334, 14310298, 1873728, 8203076, 9601829, 50327654, 5788908 ####[facility] [address] [place] [address] Chloride [Moles/Vol] 106 mmol/L Normal 101-111 [facility] Comment on above: Performed By: #### 1 0838539, 9954704, 01738245, 0487048, 0564027, 1986744, 69139741, 4287768 ####[facility] [address] [place] [address] CO2 [Moles/Vol] 27 mmol/L Normal 21-31 [facility] Comment on above: Performed By: #### 1 7849134, 4362030, 22512952, 5507574, 4789690, 2856128, 81119577, 4455167 ####[facility] [address] [place] [address] Creatinine [Mass/Vol] 0.7 mg/dL Normal 0.5-1.3 [facility] Comment on above: Performed By: #### 1 2537980, 2111043, 29372298, 0395861, 2277753, 7212723, 04401140, 6826574 ####[facility] [address] [place] [address] Globulin (S) [Mass/Vol] 3.7 g/dL Normal 1.4-4.0 [facility] Comment on above: Performed By: #### 1 2687196, 4100848, 48444753, 2703825, 7921171, 3914256, 90659664, 0160160 ####[facility] [address] [place] [address] Glucose [Mass/Vol] 84 mg/dL Normal 55-199 [facility] Comment on above: Result Comment: If t his glucose result represents a fasting glucose, interpretation should refer to the following reference range: 55-99 mg/dL Performed By: #### 1 2450462, 7642676, 11817732, 9195460, 8566761, 8143532, 16583078, 4352184 ####[facility] [address] [place] [address] Potassium [Moles/Vol] 4.2 mmol/L Normal 3.5-5.3 [facility] Comment on above: Performed By: #### 1 8739523, 8965736, 97950864, 2283556, 2118832, 6165937, 47396117, 3333360 ####[facility] [address] [place] [address] Protein [Mass/Vol] 7.3 g/dL Normal 6.0-7.8 [facility] Comment on above: Performed By: #### 1 6781607, 5202426, 84504039, 3887069, 7277805, 5480932, 28381535, 5407315 ####[facility] [address] [place] [address] Sodium [Moles/Vol] 139 mmol/L Normal 135-145 [facility] Comment on above: Performed By: #### 1 4298538, 6537960, 30617125, 0452235, 1020384, 6193258, 23057662, 9326242 ####[facility] [address] [place] [address] Urea nitrogen [Mass/Vol] 10 mg/dL Normal 5-21 [facility] Comment on above: Performed By: #### 1 2736780, 0175813, 91581146, 3151904, 1787809, 7637133, 10768216, 8360574 ####[facility] [address] [place] [address] Urea nitrogen/Creatinine [Mass ratio] 14 No Units Normal 10-20 [facility] Comment on above: Performed By: #### 1 4676210, 4262146, 67442486, 3461559, 7003162, 4924675, 90321384, 0269025 ####[facility] [address] [place] [address] Lipid Panelon 03-27-2023 Cholesterol [Mass/Vol] 204 mg/dL High 120-200 [facility] Comment on above: Performed By: #### 1 1660170, 6750134, 41602195, 2344589, 3427782, 9845257, 05056590, 1885588 ####[facility] [address] [place] [address] Cholesterol in HDL [Mass/Vol] 37 mg/dL Invalid Interpretation Code [facility] Comment on above: Result Comment: HDL > or equal to 60 mg/dL: Low cardiovascular risk HDL < 40 mg/dL : High cardiovascular risk Performed By: #### 1 5595003, 9523059, 97985872, 2846173, 8650320, 8036322, 43882498, 2070890 ####[facility] [address] [place] [address] Cholesterol in LDL [Mass/Vol] 145 mg/dL High <=129 [facility] Comment on above: Performed By: #### 1 9728172, 1876002, 44949692, 9687810, 8152388, 9238114, 68065968, 1646285 ####[facility] [address] [place] [address] Cholesterol in VLDL [Mass/Vol] 41 mg/dL High 7-40 [facility] Comment on above: Performed By: #### 1 9316352, 8095034, 71766420, 5640169, 6160047, 7920483, 23283034, 6346001 ####[facility] [address] [place] [address] Triglyceride [Mass/Vol] 203 mg/dL High <=149 [facility] Comment on above: Performed By: #### 1 0186968, 3001021, 37969852, 4669141, 7976911, 1291652, 88665207, 8483977 ####[facility] [address] [place] [address] Morphon 03-27-2023 Morphology Rashawn (Bld) [Interp] See Morphology Normal [facility] Comment on above: Order Comment: Order Added by Discern Expert. Performed By: #### 1 3923239, 6283318, 81992894, 7790090, 5195304, 9842326, 16453664, 1363863 ####[facility] [address] [place] [address] Physician Orderon 03-27-2023 Physician Order [id number] [facility] [id number]#[id number] CD:127 Normal [facility] TSHon 03-27-2023 TSH Qn 1.21 m[IU]/L Normal 0.34-5.60 [facility] Comment on above: Performed By: #### 1 7799896, 2968635, 33116930, 5722434, 2627392, 5114319, 70624481, 7735298 ####[facility] [address] [place] [address] eGFRon 03-27-2023 GFR/1.73 sq M.predicted among non-blacks MDRD (S/P/Bld) [Vol rate/Area] 123 mL/min/1.73 m2 Normal >=59 [facility] Comment on above: Order Comment: Order added by Discern Expert. Result Comment: Design Engineering Manager daryl kidney disease could be indicated at eGFR's of less than 60 mL/min/1.73m2. Kidney failure is indicated at less than 15 mL/min/1.73m2. Performed By: #### 1 0499639, 4981552, 42603057, 4135052, 2496748, 0312877, 86732986, 9662540 ####[facility] [address] [place] [address] Consent for Treatmenton Consent for Treatment [id number] D:127 Normal [facility] Discharge Instructionson Discharge Instructions [id number]#[id number] CD:127 Normal [facility] ED Clinical Summaryon 2022 ED Clinical Summary (Inserted Image. Paola ble to display) [address] [address] ED Clinical Summary Person Information Name: SCARLET DURAND/[facility]_Julian Age: 23 Years : 2000 Sex: Female Language: Tuvaluan PCP: ORLANDO PACE MD Marital Status: Phone: [phone] Visit Id: Visit Reason: Back pain; BACK PAIN Speciality: Acuity: 4 Enc Type: Emergency Med Service: Emergency Arrival: 02/27/2023 10:49:40 Discharge: 02/27/2023 11:07:19 LOS: 000 00:18 Checkin: 02/27/2023 10:49:40 Checkout: 02/27/2023 11:07:19 Dispo Type: Home (Routine DC) EVENTS: Event Name Event Status Request Date/Time Start Date/Time Complete Date/Time Arrive Complete 02/27/2023 10:49:40 02/27/2023 10:49:40 02/27/2023 10:49:40 Document Home Meds Request 02/27/2023 10:49:40 Triage Complete 02/27/2023 10:49:40 02/27/2023 10:56:15 02/27/2023 10:56:15 Bed Assign Complete 02/27/2023 10:53:49 02/27/2023 10:53:49 02/27/2023 10:53:49 Dr Exam Complete 02/27/2023 10:53:49 02/27/2023 10:53:54 02/27/2023 10:53:54 RN Exam Complete 02/27/2023 10:53:49 02/27/2023 10:57:26 02/27/2023 10:57:26 Registration Request 02/27/2023 10:53:54 Discharge Complete 02/27/2023 11:01:43 02/27/2023 11:07:26 02/27/2023 11:07:26 Transfer Complete 02/27/2023 11:07:26 02/27/2023 11:07:26 02/27/2023 11:07:26 ADDRESS: [address] [facility] [phone] PHYS DOC NOTES: MEDICAL INFORMATION: Prescriptions Given: New Medications [id number], [address] [place] [id number], [phone] methylPREDNISolone (Medrol 4 mg Tab) 1 Packets By Mouth As Directed for 6 Days. as directed on package labeling. Refills: 0. Medications to Continue with No Changes Other Medications ibuprofen (ibuprofen 600 mg Tab) 1 Tablets By Mouth every 6 hours. Refills: 0. multivitamin, ( Multivitamins with Folic Acid 1.25 mg oral tablet) naproxen (Naprosyn 500 mg Tab) 1 Tablets By Mouth 2 times a day as needed for pain. Refills: 0. naproxen (naproxen 500 mg Tab) 1 Tablets By Mouth 2 times a day. Take one tab by mouth two times a day. Refills: 0. PATIENT EDUCATION INFORMATION: Instructions: Back Injury Prevention; Back Exercises; Acute Back Pain, Adult Follow up: With: Address: When: ORLANDO PACE [address] [place] [address] In 3 days 03/02/2023 Comments: Call the office of your primary care doctor to arrange for follow-up within the above-stated timeframe. Follow-up with your primary care doctor about this ED visit. You should review your labs, imaging, and diagnoses from this ED visit with your primary care physician. There are occasionally non-emergent findings that require additional follow-up after your ED visit. If you were prescribed medications you should discuss possible side-effects and drug interactions with your pharmacist. Call 911 or go to the nearest Emergency Department if you develop any new or worsening symptoms. Seek immediate medical attention if you develop: increasing pain, numbness, tingling, weakness, loss of motion in your arms or legs, loss of control of your urine or stool, fever, abdominal pain, chest pain, shortness of breath, or any new or worsening symptoms. DIAGNOSIS: Pain in back Normal [facility] ED Note-Physicianon 02-28-20 ED Note-Physician Basic Information Time Seen: Bi Galeana DOJp 02/27/2023 10:53 Chief Complaint Pt reports back pain for 3 days. Pain has gotten worse. denies DONY. Pt reports entire back is painful. denies trouble with bowels/bladder. History of Present Illness 23-year-old female to the emergency department chief complaint of 3 days of back pain. Patient reports it is stiff when she gets up in the morning and loosens throughout the day. She reports that it is painful throughout her entire back from her neck down to her buttock. It is on both sides. She denies any fever, sweats, chills. She denies any recent injury or falls. She denies any numbness, weakness, tingling. She denies any bowel or bladder incontinence or retention. She has had similar pain in the past. She is currently on Flexeril, naproxen, Tylenol for this. Review of Systems A 10 point review of systems is negative except as noted above. Medical and Surgical History: Reviewed and noted Social history: Lives at home Tobacco: Denies Physical Exam Vitals & Measurements T: 36.8 ?C(Oral) HR: 94(Peripheral) RR: 16 BP: 127/87 SpO2: 99% HT: 163 cm WT: 118 kg BMI: 44.41 VITALS: I have reviewed the triage vital signs. GENERAL: Well developed, well appearing adult in no acute distress. NEURO: Alert and oriented. Moves all extremities. Face is symmetric and expressive. Patellar reflexes brisk and equal bilaterally. Normal gait. Plantar flexion/dorsiflexion, knee flexion/extension, hip flexion/extension are grossly intact with 5/5 strength. Sensation is intact across the bilateral lower extremities. SPINE: No midline cervical, thoracic, or lumbar tenderness. No step-off or deformities. No paraspinal muscle tenderness or increased tone. EYES: PERRL. No scleral icterus or conjunctival injection. No discharge. HENT: Normocephalic, atraumatic. Hearing is grossly intact. Nares grossly patent and without discharge. Mucous membranes moist. NECK: No JVD. Patient moves neck without restriction. CARDIO: Rhythm regular. Normal rate. No murmur, rub, or gallop. Pulses equal bilaterally in the upper and lower extremity. No lower extremity edema. PULM: Lungs clear to auscultation in all reese. No wheezes, rales, or rhonchi. No conversational dyspnea. No splinting, stridor, or accessory muscle use. GI/: Abdomen is soft and non-tender. Normoactive bowel sounds. No flank tenderness. EXTREMITIES: Symmetric muscle bulk. No joint swelling. No clubbing, cyanosis, or deformity. SKIN: Warm and dry. Normal turgor. No rash or lesions appreciated. PSYCH: Mood, affect, and interaction is appropriate to the setting. Medical Decision Making Well-appearing 23-year-old female to the emergency department chief complaint of acute on chronic back pain. Vital stable, the patient is afebrile. Neurologic examination is nonfocal. History and exam do not suggest any acute cord compressing lesion. No recent traumatic history. There is no indication for imaging at this time. Treat symptomatically at this time. Medrol Dosepak is sent. She will continue taking naproxen, Flexeril. She will follow-up with her PCP. Return precaution discussed. All questions were answered. The patient was discharged home Assessment/Plan Pain in back (M54.9: Dorsalgia, unspecified) Orders: methylPREDNISolone, = 1 packet(s), Oral, As Directed, as directed on package labeling, X 6 day(s), # 21 tab(s), Refills(s) 0, Pharmacy: [id number], 163, cm, 02/27/23 10:56:00 EDT, Height/Length Dosing, 118, kg, 02/27/23 10:56:00 EDT, Weight Dosing Disposition Plan Patient Discharge Condition Stable Discharge Disposition Home Discharge Prescription List Prescriptions Medrol 4 mg Tab, 1 packet(s), Oral, As Directed Follow-up With When Contact Information ORLANDO PACE In 3 days 03/02/2023 EDT [address] [place] [address]- Additional Instructions: Call the office of your primary care doctor to arrange for follow-up within the above-stated timeframe. Follow-up with your primary care doctor about this ED visit. You should review your labs, imaging, and diagnoses from this ED visit with your primary care physician. There are occasionally non-emergent findings that require additional follow-up after your ED visit. If you were prescribed medications you should discuss possible side-effects and drug interactions with your pharmacist. Call 911 or go to the nearest Emergency Department if you develop any new or worsening symptoms. Seek immediate medical attention if you develop: increasing pain, numbness, tingling, weakness, loss of motion in your arms or legs, loss of control of your urine or stool, fever, abdominal pain, chest pain, shortness of breath, or any new or worsening symptoms. Patient Education Back Injury Prevention Back Exercises Acute Back Pain, Adult Problem List/Past Medical History Ongoing Adult BMI 40.0-44.9 kg/sq m Anxiety and depression Back pain with radiculopathy Bilateral arm pain Bipolar 1 diso (more content not included)... Normal [facility] Comment on above: Result Comment: Elec tronically Signed By: Bi Galeana DO\.br\Date and Time Signed: 02/27/23 11:07 EDT ED Patient Education Noteon 02-27-2023 ED Patient Education Note Orthopedics Back Injury Prevention Back injuries can be very painful. They can also be difficult to heal. After having one back injury, you are more likely to have another. It is important to learn how to avoid injuring or re-injuring your back. The following tips can help you prevent a back injury. What actions can I take to prevent back injuries? Nutrition changes Talk with your health care provider about your overall diet, and especially about foods that strengthen your bones. ? Ask your health care provider how much calcium and vitamin D you need each day. These nutrients help to prevent weakening of the bones (osteoporosis). Osteoporosis can cause broken (fractured) bones, which lead to back pain. ? Eat foods that are good sources of calcium. These include dairy products, green leafy vegetables, and products that have had calcium added to them (are fortified). ? Eat foods that are good sources of vitamin D. These include milk and foods that are fortified with vitamin D. ? If needed, take supplements and vitamins as directed by your health care provider. Physical fitness Physical fitness strengthens your bones and your muscles. It also increases your balance and strength. ? Exercise for 30 minutes a day on most days of the week, or as directed by your health care provider. Make sure to: ? Do aerobic exercises, such as walking, jogging, biking, or swimming. ? Do exercises that increase balance and strength, such as paulie chi and yoga. These can decrease your risk of falling and injuring your back. ? Do stretching exercises to help with flexibility. ? Develop strong abdominal muscles. Your abdominal muscles provide a lot of the support that your back needs. ? Maintain a healthy weight. This helps to decrease your risk of a back injury. Good posture Prevent back injuries by developing and maintaining a good posture. To do this successfully: ? Sit up and stand up straight. Avoid leaning forward when you sit or hunching over when you stand. ? Choose chairs that have good low-back (lumbar) support. ? If you work at a desk, sit close to it so you do not need to lean over. Keep your chin tucked in. Keep your neck drawn back, and keep your elbows bent at a right angle. ? Sit high and close to the steering wheel when you drive. Add lumbar support to your car seat, if needed. ? Avoid sitting or standing in one position for very long. Take breaks to get up, stretch, and walk around at least one time every hour. Take breaks every hour if you are driving for long periods of time. ? Sleep on your side with your knees slightly bent, or sleep on your back with a pillow under your knees. ? Keep your head and neck in a straight line with your spine (neutral position) when using electronic equipment like smartphones or tablets. To do this: ? Raise your smartphone or tablet to look at it instead of bending your head or neck to look down. ? Put the smartphone or tablet at the level of your face while looking at the screen. Lifting, twisting, and reaching Back injuries are more likely to occur when carrying loads and bending or twisting at the same time. When you bend and lift, or reach for items that are high up on shelves, use positions that put less stress on your back. ? Heavy lifting ? Avoid heavy lifting, especially the kind of heavy lifting that is repetitive. If you must do heavy lifting: ? Stretch before lifting. ? Work slowly. ? Rest between lifts. ? Use a tool such as a cart or a wyatt to move objects. ? Make several small trips instead of carrying one heavy load. ? Ask for help when you need it, especially when moving big or heavy objects. ? Follow these steps when lifting: ? Stand with your feet shoulder-width apart. ? Get as close to the object as you can. Do not try to pear picker a heavy object that is far from your body. ? Use handles or lifting straps if they are available. ? Bend at your knees. Squat down, but keep your heels off the floor. ? Keep your shoulders pulled back, your chin tucked in, and your back straight. ? Lift the object slowly while you tighten the muscles in your legs, abdomen, and buttocks. Keep the object as close to the center of your body as possible. ? Follow these steps when putting down a heavy load: ? Stand with your feet shoulder-width apart. ? Lower the object slowly while you tighten the muscles in your legs, abdomen, and buttocks. Keep the object as close to the center of your body as possible. ? Keep your shoulders pulled back, your chin tucked in, and your back straight. ? Bend at your knees. Squat down, but keep your heels off the floor. ? Use handles or lifting straps if they are available. ? Twisting and reaching ? Avoid lifting heavy objects above your waist. ? Do not twist at your waist while you are lifting or carrying a (more content not included)... Normal [facility] ED Patient Summaryon 023 ED Patient Summary (Inserted Image. Paola ble to display) [id number] Patient Discharge Instructions Person Information Name: SCARLET DURAND Age: 23 Years Arrival Date: 02/27/2023 10:49:40 Discharge Diagnosis: Pain in back Primary Care Physician: SANJEEV WAY, ORLANDO Solorzano Provider Information Primary Provider: Bi Galeana DO Advanced Food Service Associate:None The exam and treatment you received in the Emergency Department were for an urgent problem and are not intended as complete care. It is important that you follow up with a doctor, nurse practitioner, or physician?s web assistant for ongoing care. If your symptoms become worse or you do not improve as expected and you are unable to reach your usual health care provider, you should return to the Emergency Department. We are available 24 hours a day. SCARLET DURAND has been given the following list of patient education materials, prescriptions and follow-up instructions: Follow-up Instructions: With: Address: When: ORLANDO COYLE [address] [place] [address] In 3 days 03/02/2023 Comments: Call the office of your primary care doctor to arrange for follow-up within the above-stated timeframe. Follow-up with your primary care doctor about this ED visit. You should review your labs, imaging, and diagnoses from this ED visit with your primary care physician. There are occasionally non-emergent findings that require additional follow-up after your ED visit. If you were prescribed medications you should discuss possible side-effects and drug interactions with your pharmacist. Call 911 or go to the nearest Emergency Department if you develop any new or worsening symptoms. Seek immediate medical attention if you develop: increasing pain, numbness, tingling, weakness, loss of motion in your arms or legs, loss of control of your urine or stool, fever, abdominal pain, chest pain, shortness of breath, or any new or worsening symptoms. In the event that this physician does not participate in your insurance network, please consult with your insurance company to find a nearby participating provider. Patient Education Materials: Back Injury Prevention; Back Exercises; Acute Back Pain, Adult A MESSAGE TO ALL PATIENTS REGARDING OPIOIDS PRESCRIPTION OPIOIDS: WHAT YOU NEED TO KNOW Prescription opioids can be used to help relieve yrzrakfm-ue-pitxty pain and are often prescribed following a surgery or injury, or for certain health conditions. These medications can be an important part of the treatment but also come with serious risks. It is important to work with your healthcare provider to make sure you are getting the safest, most effective care. WHAT ARE THE RISKS AND SIDE EFFECTS OF OPIOID USE? Prescription opioids carry serious risks of addiction and overdose, especially with prolonged use. An opioid overdose, often marked by slowed breathing, can cause sudden . The use of prescription opioids can have a number of side effects as well, even when taken as directed: ? Tolerance?meaning you might need to take more of the medication for the same pain relief ? Physical dependence?meaning you have symptoms of withdrawal when a medication is stopped ? Increased sensitivity to pain ? Constipation ? Nausea, vomiting, and dry mouth ? Sleepiness and dizziness ? Confusion ? Depression ? Low levels of testosterone that can result in lower sex drive, energy, and strength ? Itching and sweating RISKS ARE GREATER WITH: ? History of drug misuse, substance use disorder, or overdose ? Mental health conditions (such as depression or anxiety) ? Sleep apnea ? Older age (65 years and older) ? Avoid alcohol while taking prescription opioids. Also, unless specifically advised by your health care provider, medications to avoid include: ? Benzodiazepines (such as Xanax or Valium) ? Muscle relaxants (such as Soma or Flexeril) ? Hypnotics (such as Ambien or Lunesta) ? Other prescription opioids KNOW YOUR OPTIONS Talk to your health care provider about ways to manage your pain that don?t involve prescription opioids. Some of these options may actually work better and have fewer risks and side effects. Options may include: ? Pain relievers such as acetaminophen, ibuprofen, and naproxen ? Some medication that are also used for depression or seizures ? Physical therapy and exercise ? Cognitive behavioral therapy, a psychological, goal-directed approach, in which patients learn how to modify physical, behavioral, and emotional triggers of pain and stress. IF YOU ARE PRESCRIBED OPIOIDS FOR PAIN: ? Never take opioids in greater amounts or more often than prescribed. ? Follow up with your primary health care provider. o Work together to create a plan on how to manage your pain. o Talk about ways to help manage your pain that don?t involve prescription opioids. (more content not included)... [facility] Consent for Treatmenton 12-27 Consent for Treatment [id number] D:127 [facility] Discharge Instructionson Discharge Instructions [id number] CD:127 [facility] ED Clinical Summaryon 2022 ED Clinical Summary (Inserted Image. Paola ble to display) [address] [address] ED Clinical Summary Person Information Name: SCARLET DURAND [facility] Age: 23 Years : 2000 Sex: Female Language: Tuvaluan PCP: ORLANDO PACE MD Marital Status: Phone: [phone] Visit Id: Visit Reason: Neck pain; Back pain; BACK PAIN Speciality: Acuity: 4 Enc Type: Emergency Med Service: Emergency Arrival: 01/14/2023 10:29:10 Discharge: 01/14/2023 11:31:25 LOS: 000 01:02 Checkin: 01/14/2023 10:29:10 Checkout: 01/14/2023 11:31:25 Dispo Type: Home (Routine DC) EVENTS: Event Name Event Status Request Date/Time Start Date/Time Complete Date/Time Arrive Complete 01/14/2023 10:29:10 01/14/2023 10:29:10 01/14/2023 10:29:10 Document Home Meds Request 01/14/2023 10:29:10 Triage Complete 01/14/2023 10:29:10 01/14/2023 10:35:16 01/14/2023 10:35:16 Bed Assign Complete 01/14/2023 10:31:09 01/14/2023 10:31:09 01/14/2023 10:31:09 Dr Exam Complete 01/14/2023 10:31:09 01/14/2023 10:36:07 01/14/2023 10:36:07 RN Exam Complete 01/14/2023 10:31:09 01/14/2023 10:44:18 01/14/2023 10:44:18 Registration Complete 01/14/2023 10:36:07 01/14/2023 10:37:08 01/14/2023 10:49:57 Dr Exam Complete 01/14/2023 10:36:10 01/14/2023 10:36:10 01/14/2023 10:36:10 Reg Complete Request 01/14/2023 10:49:57 Reg Bed Request Complete 01/14/2023 10:49:57 01/14/2023 10:49:57 01/14/2023 10:49:57 X-Ray Complete 01/14/2023 11:05:56 01/14/2023 11:07:19 01/14/2023 11:17:35 Wet Read Complete 01/14/2023 11:17:35 01/14/2023 11:19:24 01/14/2023 11:19:24 Discharge Complete 01/14/2023 11:25:51 01/14/2023 11:31:32 01/14/2023 11:31:32 Transfer Complete 01/14/2023 11:31:32 01/14/2023 11:31:32 01/14/2023 11:31:32 ADDRESS: [address] [facility] [id number] PHYS DOC NOTES: MEDICAL INFORMATION: Prescriptions Given: New Medications [facility], [address] [place], [place] [id number], [phone] methocarbamol (Robaxin-750 oral tablet) 1 Tablets By Mouth 3 times a day for 7 Days. Refills: 0. Medications to Continue Taking That Have Changed [facility], [address] [place], [place] [id number], [phone] START: naproxen (naproxen 500 mg Tab) 1 Tablets By Mouth 2 times a day. Take one tab by mouth two times a day. Refills: 0. Other Medications START: naproxen (Naprosyn 500 mg Tab) 1 Tablets By Mouth 2 times a day as needed for pain. Refills: 0. Medications to Continue with No Changes Other Medications ibuprofen (ibuprofen 600 mg Tab) 1 Tablets By Mouth every 6 hours. Refills: 0. multivitamin, ( Multivitamins with Folic Acid 1.25 mg oral tablet) PATIENT EDUCATION INFORMATION: Instructions: Neck Exercises; Muscle Cramps and Spasms, Kory-bj-[id number] Follow up: With: Address: When: [facility] [address] [place] [address] In 3 days DIAGNOSIS: Neck muscle spasm; Neck pain Normal [facility] ED Note-Physicianon 01-15-20 ED Note-Physician Basic Information Time Seen: Blake Rivera DO 01/14/2023 10:36 Chief Complaint pt c/o neck and back pain for two weeks. pt reports a bulge in her neck. denies injury History of Present Illness Scarlet Durand is a 23 year old female with past medical history of fibromyalgia presenting to the ED for evaluation of neck and back pain. She is accompanied by her mom who is concerned about the onset of degenerative disc disease. The patient states that she woke up 2 weeks ago with a large knot located in her posterior neck. She denies any inciting injury. She reports that her pain has been radiating down into her back with intermittent radiation down her bilateral arms and back into her knees described as sharp, shooting, numb, and tingling. The pain also radiates into the front of her chest and feels like a bear hug. She reports reports pain and difficulty upon moving her neck. She denies any relief with Tylenol, ibuprofen, or lidocaine patch. She endorses a chronic headache. She denies any fever, shortness of breath, nausea, or vomiting. Review of Systems 10 point ROS negative unless otherwise noted in HPI Physical Exam Vitals & Measurements T: 36.9 ?C(Oral) HR: 94(Peripheral) RR: 18 BP: 114/80 SpO2: 96% HT: 160 cm WT: 121 kg BMI: 47.27 General: not in acute distress Head: atraumatic, normocephalic Skin: warm and dry, no pallor noted Eyes: PERRLA, EOMI, sclera anicteric, conjunctiva without erythema Neck: No focal bony tenderness palpation no step-off no crepitus appreciated. Patient is diffusely tender throughout and tender in the paraspinal musculature ENT: moist mucous membranes CV: regular rate and rhythm, no murmurs, gallops, or rubs Resp: clear to auscultation bilaterally; no wheezes, cough, rales; no accessory muscle use GI: soft, non-distended, non-tender, no guarding, no rigidity MSK: hypertonicity of trapezius muscle, tenderness upon palpation of neck, back, and arms, range of motion of neck and arms limited secondary to pain Neuro: A&O, no focal deficits Psych: anxious, cooperative Medical Decision Making MEDICAL DECISION MAKING Number and Complexity of Problems Differential Diagnosis: MDM Data External documents reviewed: My EKG interpretation: in chart if applicable My CT interpretation: in chart if applicable My X-ray interpretation: in chart if applicable My Ultrasound interpretation: Decision rules/scores evaluated: Discussed with: Treatment and Disposition ED Course: Family was concerned about degenerative arthritis therefore CT was performed does show loss of lordosis otherwise no acute findings. Patient is discharged home with a note for work educated on neck exercises Naprosyn and Robaxin follow-up in outpatient setting return to ER symptoms change or worsen. I, Dr. Rivera had a crhc-jk-[id number] interaction with the patient. I personally performed a physical exam and medical decision making. I have verified the documentation by the student as accurately representing the information obtained. Shared decision making: Code status: Assessment/Plan Neck muscle spasm (M62.838: Other muscle spasm) Neck pain (M54.2: Cervicalgia) Orders: methocarbamol, 750 mg = 1 tab(s), Oral, TID, X 7 day(s), # 21 tab(s), Refills(s) 0, Pharmacy: [facility], 160, cm, 01/14/23 10:35:00 EDT, Height/Length Dosing, 121, kg, 01/14/23 10:35:00 EDT, Weight Dosing naproxen, 500 mg = 1 tab(s), Oral, BID, Take one tab by mouth two times a day, # 14 tab(s), Refills(s) 0, Pharmacy: [facility], 160, cm, 01/14/23 10:35:00 EDT, Height/Length Dosing, 121, kg, 01/14/23 10:35:00 EDT, Weight Dosing XR Spine Cervical 2 or 3 Views Disposition Plan Discharge Prescription List Prescriptions naproxen 500 mg Tab, 500 mg= 1 tab(s), Oral, BID Robaxin-750 oral tablet, 750 mg= 1 tab(s), Oral, TID Follow-up With When Contact Information OR[facility] PACE In 3 days [address] [place] [address]- Additional Instructions: Patient Education Neck Exercises Muscle Cramps and Spasms, Bcpe-on-Smms Problem List/Past Medical History Ongoing Adult BMI 40.0-44.9 kg/sq m Anxiety and depression Back pain with radiculopathy Bilateral arm pain Bipolar 1 disorder, mixed, moderate BMI 45.0-49.9, adult Class 3 severe obesity due to excess calories with body mass index (BMI) of 40.0 to 44.9 in adult Fatigue GDM (gestational diabetes mellitus) Marijuana use Mental disorder in , antepartum Morbid obesity Neuropathy Obesity complicating , second trimester PTSD (post-traumatic stress disorder) Shoulder pain, bilateral Smoker Supervision of high risk in second trimester Historical Amenorrhea Contraceptive management None Smoker 27-JAN-2014 12:37:00<$> Procedure/Surgical History None. Medications Inpatient No active inpatient medications Home ibuprofen 600 mg Tab, 600 mg= 1 tab(s), Or (more content not included)... Normal [facility] Comment on above: Result Comment: Elec tronically Signed By: Nabila Jane\.br\Date and Time Signed: 01/14/23 11:12 EDT\.br\Electronically Co-Signed By: Blake Rivera DO\.br\Date and Time Co-Signed: 01/14/23 11:33 EDT ED Patient Education Noteon 01-14-2023 ED Patient Education Note Orthopedics Neck Exercises Ask your health care provider which exercises are safe for you. Do exercises exactly as told by your health care provider and adjust them as directed. It is normal to feel mild stretching, pulling, tightness, or discomfort as you do these exercises. Stop right away if you feel sudden pain or your pain gets worse. Do not begin these exercises until told by your health care provider. Neck exercises can be important for many reasons. They can improve strength and maintain flexibility in your neck, which will help your upper back and prevent neck pain. Stretching exercises Rotation neck stretching 1. Sit in a chair or stand up. 2. Place your feet flat on the floor, shoulder-width apart. 3. Slowly turn your head (rotate) to the right until a slight stretch is felt. Turn it all the way to the right so you can look over your right shoulder. Do not tilt or tip your head. 4. Hold this position for 10?30 seconds. 5. Slowly turn your head (rotate) to the left until a slight stretch is felt. Turn it all the way to the left so you can look over your left shoulder. Do not tilt or tip your head. 6. Hold this position for 10?30 seconds. Repeat times. Complete this exercise times a day. Neck retraction 1. Sit in a sturdy chair or stand up. 2. Look straight ahead. Do not bend your neck. 3. Use your fingers to push your chin backward (retraction). Do not bend your neck for this movement. Continue to face straight ahead. If you are doing the exercise properly, you will feel a slight sensation in your throat and a stretch at the back of your neck. 4. Hold the stretch for 1?2 seconds. Repeat times. Complete this exercise times a day. Strengthening exercises Neck press 1. Lie on your back on a firm bed or on the floor with a pillow under your head. 2. Use your neck muscles to push your head down on the pillow and straighten your spine. 3. Hold the position as well as you can. Keep your head facing up (in a neutral position) and your chin tucked. 4. Slowly count to 5 while holding this position. Repeat times. Complete this exercise times a day. Isometrics These are exercises in which you strengthen the muscles in your neck while keeping your neck still (isometrics). 1. Sit in a supportive chair and place your hand on your forehead. 2. Keep your head and face facing straight ahead. Do not flex or extend your neck while doing isometrics. 3. Push forward with your head and neck while pushing back with your hand. Hold for 10 seconds. 4. Do the sequence again, this time putting your hand against the back of your head. Use your head and neck to push backward against the hand pressure. 5. Finally, do the same exercise on either side of your head, pushing sideways against the pressure of your hand. Repeat times. Complete this exercise times a day. Prone head lifts 1. Lie face-down (prone position), resting on your elbows so that your chest and upper back are raised. 2. Start with your head facing downward, near your chest. Position your chin either on or near your chest. 3. Slowly lift your head upward. Lift until you are looking straight ahead. Then continue lifting your head as far back as you can comfortably stretch. 4. Hold your head up for 5 seconds. Then slowly lower it to your starting position. Repeat times. Complete this exercise times a day. Supine head lifts 1. Lie on your back (supine position), bending your knees to point to the ceiling and keeping your feet flat on the floor. 2. Lift your head slowly off the floor, raising your chin toward your chest. 3. Hold for 5 seconds. Repeat times. Complete this exercise times a day. Scapular retraction 1. Stand with your arms at your sides. Look straight ahead. 2. Slowly pull both shoulders (scapulae) backward and downward (retraction) until you feel a stretch between your shoulder blades in your upper back. 3. Hold for 10?30 seconds. 4. Relax and repeat. Repeat times. Complete this exercise times a day. Contact a health care provider if: ? Your neck pain or discomfort gets worse when you do an exercise. ? Your neck pain or discomfort does not improve within 2 hours after you exercise. If you have any of these problems, stop exercising right away. Do not do the exercises again unless your health care provider says that you can. Get help right away if: ? You develop sudden, severe neck pain. If this happens, stop exercising right away. Do not do the exercises again unless your health care provider says that you can. This information (more content not included)... Normal [facility] ED Patient Summaryon 023 ED Patient Summary (Inserted Image. Paola ble to display) [address] [address] Patient Discharge Instructions Person Information Name: SCARLET DURAND Age: 23 Years Arrival Date: 01/14/2023 10:29:10 Discharge Diagnosis: Neck muscle spasm; Neck pain Primary Care Physician: ORLANDO PACE MD Provider Information Primary Provider: Blake Rivera DO Advanced Food Service Associate:None The exam and treatment you received in the Emergency Department were for an urgent problem and are not intended as complete care. It is important that you follow up with a doctor, nurse practitioner, or physician?s web assistant for ongoing care. If your symptoms become worse or you do not improve as expected and you are unable to reach your usual health care provider, you should return to the Emergency Department. We are available 24 hours a day. SCARLET DURAND has been given the following list of patient education materials, prescriptions and follow-up instructions: Follow-up Instructions: With: Address: When: [facility] PACE [address] [place] [address] In 3 days In the event that this physician does not participate in your insurance network, please consult with your insurance company to find a nearby participating provider. Patient Education Materials: Neck Exercises; Muscle Cramps and Spasms, Kmma-nq-Udoq A MESSAGE TO ALL PATIENTS REGARDING OPIOIDS PRESCRIPTION OPIOIDS: WHAT YOU NEED TO KNOW Prescription opioids can be used to help relieve lvogkfxk-zg-ihzuwy pain and are often prescribed following a surgery or injury, or for certain health conditions. These medications can be an important part of the treatment but also come with serious risks. It is important to work with your healthcare provider to make sure you are getting the safest, most effective care. WHAT ARE THE RISKS AND SIDE EFFECTS OF OPIOID USE? Prescription opioids carry serious risks of addiction and overdose, especially with prolonged use. An opioid overdose, often marked by slowed breathing, can cause sudden . The use of prescription opioids can have a number of side effects as well, even when taken as directed: ? Tolerance?meaning you might need to take more of the medication for the same pain relief ? Physical dependence?meaning you have symptoms of withdrawal when a medication is stopped ? Increased sensitivity to pain ? Constipation ? Nausea, vomiting, and dry mouth ? Sleepiness and dizziness ? Confusion ? Depression ? Low levels of testosterone that can result in lower sex drive, energy, and strength ? Itching and sweating RISKS ARE GREATER WITH: ? History of drug misuse, substance use disorder, or overdose ? Mental health conditions (such as depression or anxiety) ? Sleep apnea ? Older age (65 years and older) ? Avoid alcohol while taking prescription opioids. Also, unless specifically advised by your health care provider, medications to avoid include: ? Benzodiazepines (such as Xanax or Valium) ? Muscle relaxants (such as Soma or Flexeril) ? Hypnotics (such as Ambien or Lunesta) ? Other prescription opioids KNOW YOUR OPTIONS Talk to your health care provider about ways to manage your pain that don?t involve prescription opioids. Some of these options may actually work better and have fewer risks and side effects. Options may include: ? Pain relievers such as acetaminophen, ibuprofen, and naproxen ? Some medication that are also used for depression or seizures ? Physical therapy and exercise ? Cognitive behavioral therapy, a psychological, goal-directed approach, in which patients learn how to modify physical, behavioral, and emotional triggers of pain and stress. IF YOU ARE PRESCRIBED OPIOIDS FOR PAIN: ? Never take opioids in greater amounts or more often than prescribed. ? Follow up with your primary health care provider. o Work together to create a plan on how to manage your pain. o Talk about ways to help manage your pain that don?t involve prescription opioids. o Talk about any and all concerns and side effects. ? Help prevent misuse and abuse o Never sell or share prescription opioids. o Never use another person?s prescription opioids. ? Store prescription opioids in a secure place and out of reach of others (this may include visitors, children, friends, and family). ? Safely dispose of unused prescription opioids: Find your community drug take-back program or your pharmacy mail-back program, or flush them down the toilet, following guidance from the Food and Drug Administration (www.fda.gov/Drugs/Reso urcesForYou). ? Visit www.cdc.gov/drugoverdos e to learn about the risks of opioids abuse and overdose. ? If you believe you may be struggling with addiction, tell your health care tech and ask for guidance or call SAMHSA?S National Helpline at 1-716-076-ZBLI. m Source: [place] Department of (more content not included)... [facility] Prescriptions/Work Noteson 0 01-14-2023 Prescriptions/Work Notes [id number] CD:127 Normal [facility] XR Spine Cervical 2 or 3 Vie wson 01-14-2023 XR Spine Cervical 2 or 3 Views Exam Date/Time: 01/14/2023 11:17 EDT Reason for Exam: Neck Pain Report IMPRESSION: EVIDENCE OF MUSCLE SPASM. CLINICAL HISTORY: Neck Pain COMPARISON: 04/16/2019. FINDINGS: 3 views of the cervical spine show normal alignment. Intervertebral disc spaces are well-maintained. Odontoid process is unremarkable. Prevertebral soft tissues are unremarkable as well. There is straightening of the cervical spine, probably secondary to muscle spasm. There are no acute fracture or subluxation. Ordering Provider: Blake Rivera FINAL REPORT Dictated: 01/14/2023 2:56 pm Subhash Greene M.D. Signed (Electronic Signature): 01/14/2023 2:56 pm Signed by: Subhash Greene M.D. Transcribed by: SURINDER Technologist: EDILIA Technical Comments Radiation Dose: Ka,r in mGy = na DAP = na Normal [facility] CHEMISTRYOrdered By: SYSTEM SYSTEM on 11-27-2022 Albumin [Mass/Vol] 3.2 g/dL Low 3.3 - 5.0 gm/dL [facility] Albumin/Globulin [Mass ratio] 0.8 {ratio} Low 1.1 - 2.2 [facility] ALP [Catalytic activity/Vol] 67 [iU]/d Normal 21 - 98 Int._Unit/L [facility] ALT No additional P-5'-P [Catalytic activity/Vol] 12 [iU]/d Normal 6 - 46 Int._Unit/L [facility] Anion gap [Moles/Vol] 13 mmol/L Normal 6 - 16 mEq/L [facility] AST [Catalytic activity/Vol] 19 [iU]/d Normal 5 - 43 Int._Unit/L [facility] Bilirubin [Mass/Vol] 0.4 mg/dL Normal 0.0 - 1 .1 mg/dL [facility] Bilirubin.direct [Mass/Vol] mg/dL Normal 0.1 - 0.4 mg/dL [facility] Bilirubin.indirect [Mass or moles/Vol] Unable to Calculate mg/dL Invalid Interpretation Code 0.1 - 0.9 mg/dL [facility] Calcium [Mass/Vol] 8.6 mg/dL Low 8.9 - 11. 1 mg/dL [facility] Chloride [Moles/Vol] 105 mmol/L Normal 101 - 1 11 mmol/L [facility] CO2 [Moles/Vol] 25 mmol/L Normal 21 - 31 mmol/L [facility] Creatinine [Mass/Vol] 0.8 mg/dL Normal 0.5 - 1.3 mg/dL [facility] GFR/1.73 sq M.predicted among non-blacks MDRD (S/P/Bld) [Vol rate/Area] 105 mL/min/1.73 m2 Normal >=59mL/min/ 1.73 m2 [facility] Chem S Globulin (S) [Mass/Vol] 4.1 g/dL High 1.4 - 4.0 gm/dL [facility] Glucose [Mass/Vol] 102 mg/dL Normal 55 - 199 mg/dL [facility] Potassium [Moles/Vol] 3.9 mmol/L Normal 3.5 - 5.3 mmol/L [facility] Protein [Mass/Vol] 7.3 g/dL Normal 6.0 - 7.8 gm/dL [facility] Sodium [Moles/Vol] 139 mmol/L Normal 135 - 145 mmol/L [facility] Urea nitrogen [Mass/Vol] 13 mg/dL Normal 5 - 21 mg/dL [facility] Urea nitrogen/Creatinine [Mass ratio] 16 mg/mg Normal 10 - 20 [facility] HEMATOLOGYOrdered By: SYSTEM SYSTEM on 11-27-2022 Basophils/100 WBC (Bld) 0.6 % Normal 0.0 - 2.0 % [facility] HemeAutoSS Basophils/Leukocytes Auto (Bld) [Pure # fraction] 0.1 E9/L Normal 0.0 - 0.2 E9/L [facility] HemeAutoSS Eosinophils/100 WBC (Bld) 1.2 % Normal 0.0 - 8.0 % [facility] HemeAutoSS Eosinophils/Leukocytes Auto (Bld) [Pure # fraction] 0.1 E9/L Normal 0.0 - 0.5 E9/L [facility] HemeAutoSS Lymphocytes/100 WBC (Bld) 34.1 % Normal 14.0 - 50.0 % [facility] HemeAutoSS Lymphocytes/Leukocytes Auto (Bld) [Pure # fraction] 3.1 E9/L Normal 1.0 - 4.0 E9/L [facility] HemeAutoSS Monocytes/100 WBC (Bld) 5.8 % Normal 4.0 - 14.0 % [facility] HemeAutoSS Monocytes/Leukocytes Auto (Bld) [Pure # fraction] 0.5 E9/L Normal 0.2 - 1.0 E9/L [facility] HemeAutoSS Neutrophils/100 WBC (Bld) 58.3 % Normal 36.0 - 75.0 % [facility] HemeAutoSS Neutrophils/Leukocytes Auto (Bld) [Pure # fraction] 5.3 E9/L Normal 2.0 - 7.5 E9/L [facility] HEMATOLOGYOrdered By: Atif Mendez on 11-27-2022 Erythrocyte distribution width (RBC) [Ratio] 16.3 % High 10.9 - 14.2 % [facility] Hematocrit (Bld) [Volume fraction] 37.3 % Normal 34.0 - 46.0 % [facility] Hemoglobin (Bld) [Mass/Vol] 11.5 g/dL Low 12.0 - 16.0 gm/dL [facility] MCH (RBC) [Entitic mass] 24.0 pg Low 27.0 - 34.0 pg [facility] MCHC (RBC) [Mass/Vol] 30.7 g/dL Low 31.4 - 36.0 gm/dL [facility] MCV (RBC) [Entitic vol] 78.1 fL Low 80.0 - 100.0 fL [facility] Platelet mean volume (Bld) [Entitic vol] 8.7 fL Normal 6.4 - 10.8 fL [facility] Platelets (Bld) [#/Vol] 358.0 E9/L Normal 150. 0 - 500.0 E9/L [facility] RBC (Bld) [#/Vol] 4.8 E12/L Normal 4.3 - 5.9 E12/L [facility] WBC corrected for nucl RBC Auto (Bld) [#/Vol] 9.1 E9/L Normal 4.0 - 11.0 E9/L [facility] Comment on above: Result Comment: Slid e reviewed by AD. URINALYSISOrdered By: Atif Mendez on 11-27-2022 Bacteria LM Ql (Urine sed) Trace /HPF Normal Trace/HPF [facility]A Auto SS Bilirubin Ql (U) Negative (11/27/22 9:45 PM) Normal Negative [facility] Auto SS Clarity (U) Slightly Cloudy *ABN* (11/27/22 9:45 PM) Invalid Interpretation Code Clear [facility] Auto SS Color (U) Yellow (11/27/22 9:45 PM) Normal Yellow [facility] Auto SS Epithelial cells.squamous LM.HPF (Urine sed) [#/Area] 5-8 /HPF Normal 0-2/HPF [facility] Aut o SS Glucose Test strip (U) [Mass/Vol] Negative (11/27/22 9:45 PM) Normal Negative [facility] Auto SS Hemoglobin Ql (U) 1+ *ABN* (11/27/22 9:45 PM) Invalid Interpretation Code Negative [facility] Auto SS Ketones (U) [Mass/Vol] Negative (11/27/22 9:45 PM) Normal Negative [facility] Auto SS Wann.plasma/Wann. RBC (Bld) [Mass ratio] 4-20 /HPF Normal 0-3/HPF [facility] UA A uto SS Mucus Ql (Urine sed) Trace (11/27/22 9:45 PM) Normal [facility] Auto SS Nitrite Ql (U) Negative (11/27/22 9:45 PM) Normal Negative [facility] Auto SS pH (U) 6.0 *NA* (11/27/22 9:45 PM) Invalid Interpretation Code 5.0 - 9.0 [facility] Auto SS Protein (U) [Mass/Vol] Negative (11/27/22 9:45 PM) Normal Negative [facility] Auto SS Specific gravity (U) [Rel density] 1.025 *NA* (11/27/22 9:45 PM) Invalid Interpretation Code 1.005 - 1.030 [facility] Auto SS UA Spec Desc Clean Catch (11/27/22 9:45 PM) Normal [facility] Auto SS Urobilinogen Qn (U) 0.6402274 {Lei'U}/dL Normal 0.0 - 1.0 EU/dL [facility] Auto SS WBC Auto Ql (U) Negative (11/27/22 9:45 PM) Normal Negative [facility] Auto SS WBC LM.HPF (Urine sed) [#/Area] 0-5 /HPF Normal 0-5/HPF [facility] UA Auto SS HEMATOLOGYOrdered By: Lois Thomas on 11-07-2022 Anisocytosis Ql (Bld) Present (11/07/22 6:16 AM) Normal [facility] Erythrocyte distribution width (RBC) [Ratio] 16.3 % High 10.9 - 14.2 % [facility] Hematocrit (Bld) [Volume fraction] 29.1 % Low 34.0 - 46.0 % [facility] Hemoglobin (Bld) [Mass/Vol] 9.3 g/dL Low 12.0 - 16.0 gm/dL [facility] Hypochromia Auto Ql (Bld) Present (11/07/22 6:16 AM) Normal [facility] MCH (RBC) [Entitic mass] 24.6 pg Low 27.0 - 34.0 pg [facility] MCHC (RBC) [Mass/Vol] 31.9 g/dL Normal 31.4 - 36.0 gm/dL [facility] MCV (RBC) [Entitic vol] 77.1 fL Low 80.0 - 100.0 fL [facility] Morphology Rashawn (Bld) [Interp] See Morphology (11/07/22 6:16 AM) Normal [facility] Platelet mean volume (Bld) [Entitic vol] 8.4 fL Normal 6.4 - 10.8 fL [facility] Platelets (Bld) [#/Vol] 343.0 E9/L Normal 150. 0 - 500.0 E9/L [facility] RBC (Bld) [#/Vol] 3.8 E12/L Low 4.3 - 5.9 E12/L [facility] WBC corrected for nucl RBC Auto (Bld) [#/Vol] 13.1 E9/L High 4.0 - 11.0 E9/L [facility] HEMATOLOGYOrdered By: SYSTEM SYSTEM on 11-07-2022 Basophils/100 WBC (Bld) 0.5 % Normal 0.0 - 2.0 % [facility] Basophils/Leukocytes Auto (Bld) [Pure # fraction] 0.1 E9/L Normal 0.0 - 0.2 E9/L [facility] Eosinophils/100 WBC (Bld) 0.1 % Normal 0.0 - 8.0 % [facility] Eosinophils/Leukocytes Auto (Bld) [Pure # fraction] 0.0 E9/L Normal 0.0 - 0.5 E9/L [facility] Lymphocytes/100 WBC (Bld) 19.3 % Normal 14.0 - 50.0 % [facility] Lymphocytes/Leukocytes Auto (Bld) [Pure # fraction] 2.5 E9/L Normal 1.0 - 4.0 E9/L [facility] Monocytes/100 WBC (Bld) 7.1 % Normal 4.0 - 14.0 % [facility] Monocytes/Leukocytes Auto (Bld) [Pure # fraction] 0.9 E9/L Normal 0.2 - 1.0 E9/L [facility] Neutrophils/100 WBC (Bld) 73.0 % Normal 36.0 - 75.0 % [facility] Neutrophils/Leukocytes Auto (Bld) [Pure # fraction] 9.5 E9/L High 2.0 - 7.5 E9/L [facility] BLOOD BANKOrdered By: Lyndsey Simpson on 11-06-2022 ABO/Rh Interp Positive Invalid Interpretation Code [facility] BB Subsection ABSC Gel Interp Negative (11/06/22 9:49 AM) Normal [facility] BB Subsection CHEMISTRYOrdered By: SYSTEM SYSTEM on 11-06-2022 Amphetamines Screen method >1000 ng/mL Ql (U) Negative (11/06/22 1:00 PM) Normal Negative [facility] Barbiturates Screen Ql (U) Negative (11/06/22 1:00 PM) Normal Negative [facility] Benzodiazepines Ql (U) Negative (11/06/22 1:00 PM) Normal Negative [facility] Cocaine Ql (U) Negative (11/06/22 1:00 PM) Normal Negative [facility] Opiates Screen Ql (U) Negative (11/06/22 1:00 PM) Normal Negative [facility] Phencyclidine Screen method >25 ng/mL Ql (U) Negative (11/06/22 1:00 PM) Normal Negative [facility] Tetrahydrocannabinol Screen method >50 ng/mL Ql (U) Negative (4/12/23 1:00 PM) Normal Negative [facility] Anion gap [Moles/Vol] 12 mmol/L Normal 6 - 16 mEq/L [facility] Chloride [Moles/Vol] 102 mmol/L Normal 101 - 1 11 mmol/L [facility] CO2 [Moles/Vol] 20 mmol/L Low 21 - 31 mmol/L [facility] Creatinine [Mass/Vol] 0.5 mg/dL Normal 0.5 - 1.3 mg/dL [facility] GFR/1.73 sq M.predicted among blacks MDRD (S/P/Bld) [Vol rate/Area] mL/min/1.73 m2 Normal >=59mL/min/ 1.73 m2 [facility] Chem S GFR/1.73 sq M.predicted among non-blacks MDRD (S/P/Bld) [Vol rate/Area] mL/min/1.73 m2 Normal >=59mL/min/ 1.73 m2 [facility] S Potassium [Moles/Vol] 3.7 mmol/L Normal 3.5 - 5.3 mmol/L [facility] Sodium [Moles/Vol] 130 mmol/L Low 135 - 145 mmol/L [facility] Urea nitrogen [Mass/Vol] 8 mg/dL Normal 5 - 21 mg/dL [facility] COAGULATIONOrdered By: Rubens Wright on 11-06-2022 aPTT Coag (PPP) [Time] 29.3 s Normal 25.1 - 36.5 second(s) [facility] Auto Coag INR Coag (PPP) [Relative time] 1.1 {INR} Invalid Interpretation Code [facility] Auto Coag PT Coag (PPP) [Time] 12.2 s Normal 9.4 - 1 2.5 second(s) [facility] Auto Coag HEMATOLOGYOrdered By: Hyun Sandoval on 11-06-2022 Anisocytosis Ql (Bld) Present (11/06/22 9:49 AM) Normal [facility] Erythrocyte distribution width (RBC) [Ratio] 16.4 % High 10.9 - 14.2 % [facility] Hematocrit (Bld) [Volume fraction] 35.1 % Normal 34.0 - 46.0 % [facility] Hemoglobin (Bld) [Mass/Vol] 11.0 g/dL Low 12.0 - 16.0 gm/dL [facility] Hypochromia Auto Ql (Bld) Present (11/06/22 9:49 AM) Normal [facility] MCH (RBC) [Entitic mass] 24.0 pg Low 27.0 - 34.0 pg [facility] MCHC (RBC) [Mass/Vol] 31.5 g/dL Normal 31.4 - 36.0 gm/dL [facility] MCV (RBC) [Entitic vol] 76.4 fL Low 80.0 - 100.0 fL [facility] Microcytes Ql (Bld) Present (11/06/22 9:49 AM) Normal [facility] Morphology Rashawn (Bld) [Interp] See Morphology (11/06/22 9:49 AM) Normal [facility] Ovalocytes LM Ql (Bld) Present (11/06/22 9:49 AM) Normal [facility] Platelet mean volume (Bld) [Entitic vol] 8.4 fL Normal 6.4 - 10.8 fL [facility] Platelets (Bld) [#/Vol] 375.0 E9/L Normal 150. 0 - 500.0 E9/L [facility] Platelets Large LM Ql (Bld) Present (11/06/22 9:49 AM) Normal [facility] RBC (Bld) [#/Vol] 4.6 E12/L Normal 4.3 - 5.9 E12/L [facility] WBC corrected for nucl RBC Auto (Bld) [#/Vol] 11.2 E9/L High 4.0 - 11.0 E9/L [facility] HEMATOLOGYOrdered By: SYSTEM SYSTEM on 11-06-2022 Basophils/100 WBC (Bld) 0.3 % Normal 0.0 - 2.0 % [facility] Basophils/Leukocytes Auto (Bld) [Pure # fraction] 0.0 E9/L Normal 0.0 - 0.2 E9/L [facility] Eosinophils/100 WBC (Bld) 0.2 % Normal 0.0 - 8.0 % [facility] Eosinophils/Leukocytes Auto (Bld) [Pure # fraction] 0.0 E9/L Normal 0.0 - 0.5 E9/L [facility] Lymphocytes/100 WBC (Bld) 17.2 % Normal 14.0 - 50.0 % [facility] Lymphocytes/Leukocytes Auto (Bld) [Pure # fraction] 1.9 E9/L Normal 1.0 - 4.0 E9/L [facility] Monocytes/100 WBC (Bld) 4.3 % Normal 4.0 - 14.0 % [facility] Monocytes/Leukocytes Auto (Bld) [Pure # fraction] 0.5 E9/L Normal 0.2 - 1.0 E9/L [facility] Neutrophils/100 WBC (Bld) 78.0 % High 36.0 - 75.0 % [facility] Neutrophils/Leukocytes Auto (Bld) [Pure # fraction] 8.7 E9/L High 2.0 - 7.5 E9/L [facility] URINALYSISOrdered By: Naomie Wright on 11-06-2022 Bacteria LM Ql (Urine sed) Trace /HPF Normal Trace/HPF [facility]A Auto SS Bilirubin Ql (U) Negative (11/06/22 1:00 PM) Normal Negative [facility]A Auto SS Clarity (U) Clear (11/06/22 1:00 PM) Normal Clear [facility]A Auto SS Color (U) Yellow (11/06/22 1:00 PM) Normal Yellow [facility]A Auto SS Epithelial cells.squamous LM.HPF (Urine sed) [#/Area] 0-2 /HPF Normal 0-2/HPF [facility] UA Aut o SS Glucose Test strip (U) [Mass/Vol] Negative (11/06/22 1:00 PM) Normal Negative [facility]A Auto SS Hemoglobin Ql (U) Negative (11/06/22 1:00 PM) Normal Negative [facility]A Auto SS Ketones (U) [Mass/Vol] 3+ *ABN* (11/06/22 1:00 PM) Invalid Interpretation Code Negative [facility] UA Auto SS Wann.plasma/Wann. RBC (Bld) [Mass ratio] 0-3 /HPF Normal 0-3/HPF [facility] UA A uto SS Mucus Ql (Urine sed) 2+ (11/06/22 1:00 PM) Normal [facility]A Auto SS Nitrite Ql (U) Negative (11/06/22 1:00 PM) Normal Negative [facility]A Auto SS pH (U) 6.0 *NA* (11/06/22 1:00 PM) Invalid Interpretation Code 5.0 - 9.0 [facility]A Auto SS Protein (U) [Mass/Vol] Trace *ABN* (11/06/22 1:00 PM) Invalid Interpretation Code Negative [facility] UA Auto SS Specific gravity (U) [Rel density] >=1.030 *NA* (11/06/22 1:00 PM) Invalid Interpretation Code 1.005 - 1.030 [facility] UA Auto SS UA Spec Desc Baker (11/06/22 1:00 PM) Normal [facility]A Auto SS Urobilinogen Qn (U) 1.7561433 {Lei'U}/dL Normal 0.0 - 1.0 EU/dL [facility]A Auto SS WBC Auto Ql (U) Negative (11/06/22 1:00 PM) Normal Negative [facility]A Auto SS WBC LM.HPF (Urine sed) [#/Area] 0-5 /HPF Normal 0-5/HPF [facility]A Auto SS URINALYSISOrdered By: Aura Cespedes on 11-02-2022 Bacteria LM Ql (Urine sed) 2+ /HPF Invalid Interpretation Code Trace/HPF [facility]A Auto SS Bilirubin Ql (U) Negative (11/02/22 6:46 PM) Normal Negative [facility]A Auto SS Calcium oxalate crystals LM Ql (Urine sed) Present (11/02/22 6:46 PM) Normal [facility]A Auto SS Clarity (U) SL CLOUDY Invalid Interpretation Code [facility]A Auto SS Color (U) Yellow (11/02/22 6:46 PM) Normal Yellow [facility]A Auto SS Crystals LM Ql (Urine sed) Present (11/02/22 6:46 PM) Normal [facility] UA Auto SS Epithelial cells.squamous LM.HPF (Urine sed) [#/Area] /[HPF] Normal 0-2/HPF [facility] UA Aut o SS Glucose Test strip (U) [Mass/Vol] Negative (11/02/22 6:46 PM) Normal Negative [facility] UA Auto SS Hemoglobin Ql (U) Negative (11/02/22 6:46 PM) Normal Negative [facility] UA Auto SS Ketones (U) [Mass/Vol] Trace *NA* (11/02/22 6:46 PM) Invalid Interpretation Code Negative [facility] UA Auto SS Wann.plasma/Wann. RBC (Bld) [Mass ratio] 0-3 /HPF Normal 0-3/HPF [facility] A uto SS Nitrite Ql (U) Negative (11/02/22 6:46 PM) Normal Negative [facility] UA Auto SS pH (U) 6.0 *NA* (11/02/22 6:46 PM) Invalid Interpretation Code 5.0 - 9.0 [facility] UA Auto SS Protein (U) [Mass/Vol] 1+ *ABN* (11/02/22 6:46 PM) Invalid Interpretation Code Negative [facility] UA Auto SS Specific gravity (U) [Rel density] >=1.030 *NA* (11/02/22 6:46 PM) Invalid Interpretation Code 1.005 - 1.030 [facility]A Auto SS UA Spec Desc Clean Catch (11/02/22 6:46 PM) Normal [facility] UA Auto SS Urobilinogen Qn (U) 1.6642128 {Lei'U}/dL Normal 0.0 - 1.0 EU/dL [facility] UA Auto SS WBC Auto Ql (U) Negative (11/02/22 6:46 PM) Normal Negative [facility]A Auto SS WBC LM.HPF (Urine sed) [#/Area] 0-5 /HPF Normal 0-5/HPF [facility] UA Auto SS ABO/Rh Retypeon 10-26-2022 ABO/RH Recheck Result Positive Normal [facility] [place] Comment on above: Result Comment: PERF ORMED BY: [facility] [address] [place] [address] PATHOLOGIST EDUCATION PROGRAM ASSOCIATE ALIX MCLEOD M.D. Amphetamine Screen Ql (U)Ord ered By: EVAN MOORE on 10-26-2022 Amphetamines Ql (U) Negative Negative [facility] Automated erythrocytes count in urine sediment (number/area)Ordered By: EVAN MOORE on 10-26-2022 RBC Auto (Urine sed) [#/Area] 3-4 [HPF] 0-4 [facility] Automated leukocytes count i n urine sediment (number/area)Ordered By: EVAN MOORE on 10-26-2022 WBC Auto (Urine sed) [#/Area] 20-49 [HPF] 0-4 [facility] Barbiturates [Presence] in U rine by Screen methodOrdered By: EVAN MOORE on 10-26-2022 Barbiturates Screen Ql (U) Negative Negative [facility] Basophils Auto (Bld) [#/Vol] Ordered By: EVAN MOORE on 10-26-2022 Basophils (Bld) [#/Vol] 0.0 10*3/uL 0.0-0.2 [facility] Basophils/100 WBC Auto (Bld) Ordered By: EVAN MOORE on 10-26-2022 Basophils/100 WBC (Bld) 0.4 % . [facility] Benzodiazepines Screen Ql (U )Ordered By: EVAN MOORE on 10-26-2022 Benzodiazepines Ql (U) Negative Negative Fi [facility] Benzoylecgonine [Presence] i n Urine by Screen methodOrdered By: EVAN MOORE on 10-26-2022 Benzoylecgonine Screen Ql (U) Negative Negative [facility] Bilirubin Test strip Ql (U)O rdered By: EVAN MOORE on 10-26-2022 Bilirubin Ql (U) Negative Negative [facility] Color Auto (U)Ordered By: DINORAH MOORE on 10-26-2022 Color (U) Yellow Yellow [facility] Complete Blood Count Auto Di ffon 10-26-2022 Basophils (Bld) [#/Vol] 0.0 10*3/uL Normal 0.0-0.2 [facility] Comment on above: Result Comment: PERF ORMED BY: [place] [address] PATHOLOGIST EDUCATION PROGRAM ASSOCIATE ALIX MCLEOD M.D. Performed By: #### C BC #### [facility] [address] [place] [address] [place] #### RPR W RFX #### [facility] , Basophils/100 WBC (Bld) 0.4 % Normal . [facility] Comment on above: Performed By: #### C BC #### [facility] [address] [place] [address] [place] #### RPR W RFX #### [facility] , Eosinophils (Bld) [#/Vol] 0.0 10*3/uL Normal 0.0-0.45 [facility] Comment on above: Performed By: #### C BC #### [facility] [address] [place] [address] #### RPR W RFX #### [facility] , Eosinophils/100 WBC (Bld) 0.3 % Normal . [facility] Comment on above: Performed By: #### C BC #### [address] #### RPR W RFX #### [facility] , Erythrocyte distribution width (RBC) [Ratio] 15.8 % High 11.9-15.3 [facility] Comment on above: Performed By: #### C BC #### [facility] [address] [place] [address] [place] #### RPR W RFX #### [facility] , Hematocrit (Bld) [Volume fraction] 32.6 % Low 34.0-46.4 [facility] Comment on above: Performed By: #### C BC #### [address] #### RPR W RFX #### [facility] , Hemoglobin (Bld) [Mass/Vol] 10.6 g/dL Low 11.8-15.4 [facility] Comment on above: Performed By: #### C BC #### [facility] [address] [place] [address] [place] #### RPR W RFX #### [facility] , Lymphocytes (Bld) [#/Vol] 2.1 10*3/uL Normal 1.00-4.8 [facility] Comment on above: Performed By: #### C BC #### [facility] [address] [place] [address] [place] #### RPR W RFX #### [facility] , Lymphocytes/100 WBC (Bld) 19.8 % Normal . [facility] Comment on above: Performed By: #### C BC #### [facility] [address] [place] [address] #### RPR W RFX #### [facility] , MCH (RBC) [Entitic mass] 25.1 pg Normal 24.7-34.3 [facility] Comment on above: Performed By: #### C BC #### [facility] [address] [place] [address] #### RPR W RFX #### [facility] , MCV (RBC) [Entitic vol] 77.4 fL Low 80-100 [facility] Comment on above: Performed By: #### C BC #### [facility] [address] [place] [address] #### RPR W RFX #### [facility] , Mean Corpuscular HGB Conc 32.5 g/dL Normal 32.0-35.0 [facility] Comment on above: Performed By: #### C BC #### [facility] [address] [place] [address] #### RPR W RFX #### [facility] , Monocytes (Bld) [#/Vol] 0.5 10*3/uL Normal 0.0-0.8 [facility] Comment on above: Performed By: #### C BC #### [facility] [address] [place] [address] #### RPR W RFX #### [facility] , Monocytes/100 WBC (Bld) 4.6 % Normal . [facility] Comment on above: Performed By: #### C BC #### [facility] [address] [place] [address] [place] #### RPR W RFX #### [facility] , Neutrophils (Bld) [#/Vol] 7.9 10*3/uL High 1.8-7.7 [facility] Comment on above: Performed By: #### C BC #### [facility] [address] [place] [address] #### RPR W RFX #### [facility] , Neutrophils/100 WBC (Bld) 74.9 % Normal . [facility] Comment on above: Performed By: #### C BC #### [facility] [address] [place] [address] #### RPR W RFX #### [facility] , NRBC% 0.1 /100{WBC} Normal 0-0.5 [facility] Comment on above: Performed By: #### C BC #### [facility] [address] [place] [address] #### RPR W RFX #### [facility] , Platelet mean volume (Bld) [Entitic vol] 8.0 fL Normal 6.3-10.7 [facility] Comment on above: Performed By: #### C BC #### [facility] [address] [place] [address] #### RPR W RFX #### [facility] , Platelets (Bld) [#/Vol] 360 10*3/uL Normal 150-450 [facility] Comment on above: Performed By: #### C BC #### [facility] [address] [place] [address] #### RPR W RFX #### [facility] , RBC (Bld) [#/Vol] 4.21 10*6/uL Normal 3.60-5.00 [facility] Comment on above: Performed By: #### C BC #### [facility] [address] [place] [address] [place] #### RPR W RFX #### [facility] , WBC (Bld) [#/Vol] 10.6 10*3/uL Normal 3.8-11.6 [facility] Comment on above: Performed By: #### C BC #### [facility] [address] [place] [address] [place] #### RPR W RFX #### [facility] , Dipstick and Microscopicon 0 10-26-2022 Appearance (U) Cloudy Critically abnormal Clear [facility] Comment on above: Order Comment: Name Collection Type:: Clean-Voided Midstream Performed By: #### O BUDS, ADDONUAPLUS, CUU #### [facility] [address] [place] [address] Bacteria,Urine 3+ High None Seen [facility] Comment on above: Order Comment: Name Collection Type:: Clean-Voided Midstream Performed By: #### O BUDS, ADDONUAPLUS, CUU #### [facility] [address] [place] [address] Bilirubin,Urine Negative Normal Negative [facility] Comment on above: Order Comment: Name Collection Type:: Clean-Voided Midstream Performed By: #### O BUDS, ADDONUAPLUS, CUU #### [facility] [address] [place] [address] Color (U) Yellow Normal Yellow [facility] Comment on above: Order Comment: Name Collection Type:: Clean-Voided Midstream Performed By: #### O BUDS, ADDONUAPLUS, CUU #### [facility] [address] [place] [address] Glucose Ql (U) Normal Normal Normal [facility] Comment on above: Order Comment: Name Collection Type:: Clean-Voided Midstream Performed By: #### O BUDS, ADDONUAPLUS, CUU #### [facility] [address] [place] [address] Hyaline Casts,Urine 0-8 Normal 0-8 [facility] Comment on above: Order Comment: Name Collection Type:: Clean-Voided Midstream Result Comment: PERF ORMED BY: [place] [address] PATHOLOGIST EDUCATION PROGRAM ASSOCIATE ALIX MCLEOD M.D. Performed By: #### O BUDS, ADDONUAPLUS, CUU #### [address] Ketones Ql (U) Negative Normal Negative [facility] Comment on above: Order Comment: Name Collection Type:: Clean-Voided Midstream Performed By: #### O BUDS, ADDONUAPLUS, CUU #### [address] Leukocyte esterase Test strip Ql (U) 3+ High Negative [facility] Comment on above: Order Comment: Name Collection Type:: Clean-Voided Midstream Performed By: #### O BUDS, ADDONUAPLUS, CUU #### [address] Nitrite,Urine Negative Normal Negative [facility] Comment on above: Order Comment: Name Collection Type:: Clean-Voided Midstream Performed By: #### O BUDS, ADDONUAPLUS, CUU #### [place] [address] [place] Occult Blood,Urine Negative Normal Negative [facility] Comment on above: Order Comment: Name Collection Type:: Clean-Voided Midstream Result Comment: PERF ORMED BY: [place] [address] PATHOLOGIST EDUCATION PROGRAM ASSOCIATE ALIX MCLEOD M.D. Performed By: #### O BUDS, ADDONUAPLUS, CUU #### [place] [address] [place] pH (U) 7.0 [pH] Normal 5.0-9.0 [facility] Comment on above: Order Comment: Name Collection Type:: Clean-Voided Midstream Performed By: #### O BUDS, ADDONUAPLUS, CUU #### [address] Protein (U) [Mass/Vol] 30 mg/dL High Negative [facility] Comment on above: Order Comment: Name Collection Type:: Clean-Voided Midstream Performed By: #### O BUDS, ADDONUAPLUS, CUU #### [facility] [address] [place] [address] RBC,Urine 3-4 Normal 0-4 [facility] Comment on above: Order Comment: Name Collection Type:: Clean-Voided Midstream Performed By: #### O BUDS, ADDONUAPLUS, CUU #### [address] Specificy Abrams,Urine 1.018 Normal 1.001-1.030 [facility] Comment on above: Order Comment: Name Collection Type:: Clean-Voided Midstream Performed By: #### O BUDS, ADDONUAPLUS, CUU #### [address] Squamous Epithelial Cell,Urine 5-9 High 0-2 [facility] Comment on above: Order Comment: Name Collection Type:: Clean-Voided Midstream Performed By: #### O BUDS, ADDONUAPLUS, CUU #### [address] Urobilinogen,Urine Normal Normal Normal [facility] Comment on above: Order Comment: Name Collection Type:: Clean-Voided Midstream Performed By: #### O BUDS, ADDONUAPLUS, CUU #### [place] [address] [place] WBC,Urine 20-49 High 0-4 [facility] Comment on above: Order Comment: Name Collection Type:: Clean-Voided Midstream Performed By: #### O BUDS, ADDONUAPLUS, CUU #### [place] [address] [place] Eosinophils Auto (Bld) [#/Vo l]Ordered By: EVAN MOORE on 10-26-2022 Eosinophils (Bld) [#/Vol] 0.0 10*3/uL 0.0-0.45 [facility] Eosinophils/100 WBC Auto (Bl d)Ordered By: EVAN MOORE on 10-26-2022 Eosinophils/100 WBC (Bld) 0.3 % . [facility] Erythrocyte distribution wid th Auto (RBC) [Ratio]Ordered By: EVAN MOORE on 10-26-2022 Erythrocyte distribution width (RBC) [Ratio] 15.8 % 11.9-15.3 [facility] Glucose Glucometer (BldC) [M ass/Vol]Ordered By: EVAN MOORE on 10-26-2022 Glucose [Mass/Vol] 91 mg/dL [facility] Comment on above: Random Glucose Refer ence Range is dependent on time and content of last meal. Glucose of more than 200 mg/dL in a nonstressed, ambulatory subject supports the diagnosis of Diabetes Mellitus. Glucose Poct Glucometerson 0 10-26-2022 Glucose [Mass/Vol] 91 mg/dL Normal [facility] Comment on above: Result Comment: [place] om Glucose Reference Range is dependent on time and content of last meal. Glucose of more than 200 mg/dL in a nonstressed, ambulatory subject supports the diagnosis of Diabetes Mellitus. PERFORMED BY: [facility] [id number] [place] [address] PATHOLOGIST [employer]UC[employer] PROGRAM [employer]OCIATE ALIX MCLEOD M.D. Performed By: #### G LUDANIEL #### Point of Care testing , Hematocrit Auto (Bld) [Volum e fraction]Ordered By: EVAN MOORE on 10-26-2022 Hematocrit (Bld) [Volume fraction] 32.6 % 34.0-46.4 [facility] Hemoglobin [Mass/volume] in BloodOrdered By: EVAN MOORE on 10-26-2022 Hemoglobin (Bld) [Mass/Vol] 10.6 g/dL 11.8-15.4 [facility] Ketones Auto test strip (U) [Mass/Vol]Ordered By: EVAN MOORE on 10-26-2022 Ketones (U) [Mass/Vol] Negative Negative Fi relaCount includes the [facility] - UrinalysisOrder ed By: EVAN MOORE on 10-26-2022 Hyaline casts LM Ql (Urine sed) 0-8 [LPF] 0-8 [facility] Leukocytes [#/volume] correc emmett for nucleated erythrocytes in Blood by Automated counOrdered By: EVAN MOORE on 10-26-2022 WBC corrected for nucl RBC Auto (Bld) [#/Vol] 10.6 10*3/uL 3.8-11.6 [facility] Lymphocytes Auto (Bld) [#/Vo l]Ordered By: EVAN MOORE on 10-26-2022 Lymphocytes (Bld) [#/Vol] 2.1 10*3/uL 1.00-4.8 [facility] Lymphocytes/100 WBC Auto (Bl d)Ordered By: EVAN MOORE on 10-26-2022 Lymphocytes/100 WBC (Bld) 19.8 % . [facility] MCH Auto (RBC) [Entitic mass ]Ordered By: EVAN MOORE on 10-26-2022 MCH (RBC) [Entitic mass] 25.1 pg 24.7-34.3 [facility] MCHC Auto (RBC) [Mass/Vol]Or dered By: EVAN MOORE on 10-26-2022 MCHC (RBC) [Mass/Vol] 32.5 g/dL 32.0-35.0 [facility] MCV Auto (RBC) [Entitic vol] Ordered By: EVAN MOORE on 10-26-2022 MCV (RBC) [Entitic vol] 77.4 fL 80-100 [facility] Monocytes Auto (Bld) [#/Vol] Ordered By: EVAN MOORE on 10-26-2022 Monocytes (Bld) [#/Vol] 0.5 10*3/uL 0.0-0.8 [facility] Monocytes/100 WBC Auto (Bld) Ordered By: EVAN MOORE on 10-26-2022 Monocytes/100 WBC (Bld) 4.6 % . [facility] Neutrophils Auto (Bld) [#/Vo l]Ordered By: EVAN MOORE on 10-26-2022 Neutrophils (Bld) [#/Vol] 7.9 10*3/uL 1.8-7.7 [facility] Neutrophils/100 WBC Auto (Bl d)Ordered By: EVAN MOORE on 10-26-2022 Neutrophils/100 WBC (Bld) 74.9 % . [facility] Nitrite Test strip Ql (U)Ord ered By: EVAN MOORE on 10-26-2022 Nitrite Ql (U) Negative Negative [facility] Nucleated erythrocytes [Pres ence] in Blood by Automated countOrdered By: EVAN MOORE on 10-26-2022 Nucleated RBC Auto Ql (Bld) 0.1 /100{WBC} 0-0.5 [facility] OB Urine Drug Screen (NO THC )on 10-26-2022 Amphetamine Screen,Urine Negative Normal Negative [facility] Comment on above: Performed By: #### O BUDS, ADDONUAPLUS, CUU #### [address] Barbiturate Screen,Urine Negative Normal Negative [facility] Comment on above: Performed By: #### O BUDS, ADDONUAPLUS, CUU #### [place] [address] [place] Benzodiazepines Screen,Urine Negative Normal Negative [facility] Comment on above: Performed By: #### O BUDS, ADDONUAPLUS, CUU #### [place] [address] [place] Cocaine Screen,Urine Negative Normal Negative [facility] Comment on above: Performed By: #### O BUDS, ADDONUAPLUS, CUU #### [place] [address] [place] Opiate Screen,Urine Negative Normal Negative [facility] Comment on above: Performed By: #### O BUDS, ADDONUAPLUS, CUU #### [facility] [address] [place] [address] [place] Phencyclidine Screen, Urine Negative Normal Negative [facility] Comment on above: Result Comment: Thes e are unconfirmed results and should not be used for legal purposes. Drug Cut-Off Concentration: AMPH 1000 ng/mL ДМИТРИЙ 200 ng/mL SUAD 200 ng/mL COCM 300 ng/mL OP 300 ng/mL PCP 25 ng/mL PERFORMED BY: [place] [address] PATHOLOGIST EDUCATION PROGRAM ASSOCIATE ALIX MCLEOD M.D. Performed By: #### O BUDS, ADDONUAPLUS, CUU #### [address] [place] [address] [place] Opiates [Presence] in Urine by Screen methodOrdered By: EVAN MOORE on 10-26-2022 Opiates Screen Ql (U) Negative Negative [facility] Phencyclidine Screen Ql (U)O rdered By: EVAN MOORE on 10-26-2022 Phencyclidine Ql (U) Negative Negative [facility] Comment on above: These are unconfirme d results and should not be used for legal purposes. Drug Cut-Off Concentration: AMPH 1000 ng/mL ДМИТРИЙ 200 ng/mL SUAD 200 ng/mL COCM 300 ng/mL OP 300 ng/mL PCP 25 ng/mL Platelet mean volume Auto (B ld) [Entitic vol]Ordered By: EVAN MOORE on 10-26-2022 Platelet mean volume (Bld) [Entitic vol] 8.0 fL 6.3-10.7 [facility] Platelets Auto (Bld) [#/Vol] Ordered By: EVAN MOORE on 10-26-2022 Platelets (Bld) [#/Vol] 360 10*3/uL 150-450 [facility] Protein Auto test strip (U) [Mass/Vol]Ordered By: EVAN MOORE on 10-26-2022 Protein (U) [Mass/Vol] 30 mg/dL Negative [facility] RBC Auto (Bld) [#/Vol]Ordere d By: EVAN MOORE on 10-26-2022 RBC (Bld) [#/Vol] 4.21 10*6/uL 3.60-5.00 [facility] RPR w/rfx to Quant TP Abson 10-26-2022 RPR, Rfx Quant RPR Non-Reactive Normal Non Reactive [facility] Comment on above: Result Comment: Perf ormed at: CB - [facility] [address] [id number] [employer] Manager: Keith Pitts PhD, Phone: [phone] PERFORMED BY: [place] [address] PATHOLOGIST EDUCATION PROGRAM ASSOCIATE ALIX MCELOD M.D. Performed By: #### C BC #### [facility] [address] [place] [address] #### RPR W RFX #### [facility] , Reagin [facility] [Presence] in Seru m by RPROrdered By: EVAN MOORE on 10-26-2022 Reagin Ab RPR Ql (S) Non-Reactive Non Reactive [facility] Comment on above: Performed at: [address] [id number] Director: Keith Pitts PhD, Phone: [phone] Specific gravity Auto test s trip (U) [Rel density]Ordered By: EVAN MOORE on 10-26-2022 Specific gravity (U) [Rel density] 1.018 1.001-1.030 [facility] Squamous epithelial cells de tection in urine sediment by light microscopyOrdered By: EVAN MOORE on 10-26-2022 Epithelial cells.squamous LM Ql (Urine sed) 5-9 [HPF] 0-2 [facility] Type and Screenon 10-26-2022 ABO and Rh group Nom (Bld) Blood group O Rh(D) positive Normal [facility] Urine Cultureon 10-26-2022 Bacteria identified Cx Nom (U) 50,000 colonies/ml mixed bacterial skin contaminants 2 Days PERFORMED BY: [place] [address] PATHOLOGIST EDUCATION PROGRAM ASSOCIATE ALIX MCLEOD M.D. [facility] Comment on above: Performed By: #### O BUDS, ADDONUAPLUS, CUU #### [facility] [address] [place] [address] Urine bacteria detection by automated methodOrdered By: EVAN MOORE on 10-26-2022 Bacteria Auto Ql (U) 3+ None Seen [facility] Urine clarity by refractomet ry automatedOrdered By: EVAN MOORE on 10-26-2022 Clarity Refractometry automated (U) Cloudy Clear [facility] Urine culture routineOrdered By: EVAN MOORE on 10-26-2022 Bacteria identified Cx Nom (U) 2 Days [facility] Urine glucose measurement by automated test strip (mass/volume)Ordered By: EVAN MOORE on 10-26-2022 Glucose Auto test strip (U) [Mass/Vol] Normal mg/dL Normal [facility] Urine hemoglobin detection b y automated test stripOrdered By: EVAN MOORE on 10-26-2022 Hemoglobin Auto test strip Ql (U) Negative Negative [facility] Urine leukocyte esterase det ection by automated test stripOrdered By: EVAN MOORE on 10-26-2022 Leukocyte esterase Auto test strip Ql (U) 3+ Negative [facility] Urobilinogen Auto test strip (U) [Mass/Vol]Ordered By: EVAN MOORE on 10-26-2022 Urobilinogen (U) [Mass/Vol] Normal mg/dL Normal [facility] WBC Auto (Bld) [#/Vol]Ordere d By: EVAN MOORE on 10-26-2022 WBC (Bld) [#/Vol] 10.6 10*3/uL 3.8-11.6 [facility] pH Auto test strip (U)Ordere d By: EVAN MOORE on 10-26-2022 pH (U) 7.0 [pH] 5.0-9.0 [facility] URINALYSISOrdered By: Hyun Sandoval on 10-20-2022 Bacteria LM Ql (Urine sed) 3+ /HPF Invalid Interpretation Code Trace/HPF [facility] UA Auto SS Bilirubin Ql (U) Negative (10/20/22 1:48 PM) Normal Negative [facility] UA Auto SS Clarity (U) Clear (10/20/22 1:48 PM) Normal Clear [facility] UA Auto SS Color (U) Yellow (10/20/22 1:48 PM) Normal Yellow [facility] UA Auto SS Epithelial cells.squamous LM.HPF (Urine sed) [#/Area] See Comment 1 (10/20/22 1:48 PM) Normal 0-2 [facility] UA Auto SS Comment on above: Result Comment: load ed with epi's needs possible recollect with clean catch protocol Glucose Test strip (U) [Mass/Vol] Negative (10/20/22 1:48 PM) Normal Negative [facility] UA Auto SS Hemoglobin Ql (U) Negative (10/20/22 1:48 PM) Normal Negative [facility] UA Auto SS Ketones (U) [Mass/Vol] Trace *ABN* (10/20/22 1:48 PM) Invalid Interpretation Code Negative [facility] UA Auto SS Wann.plasma/Wann. RBC (Bld) [Mass ratio] 0-3 /HPF Normal 0-3/HPF [facility] A uto SS Mucus Ql (Urine sed) 3+ (10/20/22 1:48 PM) Normal [facility] UA Auto SS Nitrite Ql (U) Negative (10/20/22 1:48 PM) Normal Negative [facility] UA Auto SS pH (U) 7.0 *NA* (10/20/22 1:48 PM) Invalid Interpretation Code 5.0 - 9.0 [facility] UA Auto SS Protein (U) [Mass/Vol] 1+ *ABN* (10/20/22 1:48 PM) Invalid Interpretation Code Negative [facility] UA Auto SS Specific gravity (U) [Rel density] 1.025 *NA* (10/20/22 1:48 PM) Invalid Interpretation Code 1.005 - 1.030 [facility] UA Auto SS UA Spec Desc Clean Catch (10/20/22 1:48 PM) Normal [facility] UA Auto SS Urobilinogen Qn (U) [id number] {Lei'U}/dL Invalid Interpretation Code 0.0 - 1.0 EU/dL [facility] UA Auto SS WBC Auto Ql (U) 1+ *ABN* (10/20/22 1:48 PM) Invalid Interpretation Code Negative [facility] UA Auto SS WBC LM.HPF (Urine sed) [#/Area] 0-5 /HPF Normal 0-5/HPF [facility] UA Auto SS Amphetamine Screen Ql (U)Ord ered By: Sanaz Mathur on 09-09-2022 Amphetamines Ql (U) Negative Negative [facility] Automated erythrocytes count in urine sediment (number/area)Ordered By: Sanaz Mathur on 09-09-2022 RBC Auto (Urine sed) [#/Area] 1-2 [HPF] 0-4 [facility] Automated leukocytes count i n urine sediment (number/area)Ordered By: Sanaz Mathur on 09-09-2022 WBC Auto (Urine sed) [#/Area] 20-49 [HPF] 0-4 [facility] Barbiturates [Presence] in U rineOrdered By: Sanaz Mathur on 09-09-2022 Barbiturates Ql (U) Negative Negative [facility] Benzodiazepines [Presence] i n UrineOrdered By: Sanaz Mathur on 09-09-2022 Benzodiazepines Ql (U) Negative Negative [facility] Bilirubin Test strip Ql (U)O rdered By: Sanaz Mathur on 09-09-2022 Bilirubin Ql (U) Negative Negative [facility] Casts typing in urine sedime nt by light microscopyOrdered By: Sanaz Mathur on 09-09-2022 Casts LM Nom (Urine sed) None seen [LPF] None Seen [facility] Color Auto (U)Ordered By: Nevaeh yakelineugeneirlanda Kareen on 09-09-2022 Color (U) Dark yellow Yellow [facility] Dipstick and Microscopicon 0 09-09-2022 Appearance (U) Cloudy Critically abnormal Clear [facility] Comment on above: Order Comment: Name Collection Type:: Clean-Voided Midstream Performed By: #### O BUDS, ADDONUAPLUS, CUU #### [facility] [address] [id number] [place] Bacteria,Urine 2+ High None Seen [facility] Comment on above: Order Comment: Name Collection Type:: Clean-Voided Midstream Performed By: #### O BUDS, ADDONUAPLUS, CUU #### [facility] [address] [place] [address] [place] Bilirubin,Urine Negative Normal Negative [facility] Comment on above: Order Comment: Name Collection Type:: Clean-Voided Midstream Performed By: #### O BUDS, ADDONUAPLUS, CUU #### [facility] [address] [place] [address] [place] Color (U) Dark Yellow Critically abnormal Yellow [facility] Comment on above: Order Comment: Name Collection Type:: Clean-Voided Midstream Performed By: #### O BUDS, ADDONUAPLUS, CUU #### [facility] [address] [place] [address] [place] Glucose Ql (U) Normal Normal Normal [facility] Comment on above: Order Comment: Name Collection Type:: Clean-Voided Midstream Performed By: #### O BUDS, ADDONUAPLUS, CUU #### [facility] [address] [place] [address] [place] Hyaline Casts,Urine None Seen Normal 0-8 [facility] Comment on above: Order Comment: Name Collection Type:: Clean-Voided Midstream Performed By: #### O BUDS, ADDONUAPLUS, CUU #### [place] [address] [place] Ketones Ql (U) 4+ High Negative [facility] Comment on above: Order Comment: Name Collection Type:: Clean-Voided Midstream Performed By: #### O BUDS, ADDONUAPLUS, CUU #### [place] [address] [place] Leukocyte esterase Test strip Ql (U) 2+ High Negative [facility] Comment on above: Order Comment: Name Collection Type:: Clean-Voided Midstream Performed By: #### O BUDS, ADDONUAPLUS, CUU #### [place] [address] [place] Nitrite,Urine Negative Normal Negative [facility] Comment on above: Order Comment: Name Collection Type:: Clean-Voided Midstream Performed By: #### O BUDS, ADDONUAPLUS, CUU #### [place] [address] [place] Occult Blood,Urine Negative Normal Negative [facility] Comment on above: Order Comment: Name Collection Type:: Clean-Voided Midstream Result Comment: PERF ORMED BY: [place] [address] PATHOLOGIST EDUCATION PROGRAM ASSOCIATE ALIX MCLEOD M.D. Performed By: #### O BUDS, ADDONUAPLUS, CUU #### [place] [address] [place] Other Casts,Urine None Seen Normal None Seen [facility] Comment on above: Order Comment: Name Collection Type:: Clean-Voided Midstream Result Comment: PERF ORMED BY: [place] [address] PATHOLOGIST EDUCATION PROGRAM ASSOCIATE ALIX MCLEOD M.D. Performed By: #### O BUDS, ADDONUAPLUS, CUU #### [address] pH (U) 6.0 [pH] Normal 5.0-9.0 [facility] Comment on above: Order Comment: Name Collection Type:: Clean-Voided Midstream Performed By: #### O BUDS, ADDONUAPLUS, CUU #### [address] Protein (U) [Mass/Vol] 30 mg/dL High Negative [facility] Comment on above: Order Comment: Name Collection Type:: Clean-Voided Midstream Performed By: #### O BUDS, ADDONUAPLUS, CUU #### [address] RBC,Urine 1-2 Normal 0-4 [facility] Comment on above: Order Comment: Name Collection Type:: Clean-Voided Midstream Performed By: #### O BUDS, ADDONUAPLUS, CUU #### [address] Specificy Abrams,Urine 1.029 Normal 1.001-1.030 [facility] Comment on above: Order Comment: Name Collection Type:: Clean-Voided Midstream Performed By: #### O BUDS, ADDONUAPLUS, CUU #### [address] Squamous Epithelial Cell,Urine 10-19 High 0-2 [facility] Comment on above: Order Comment: Name Collection Type:: Clean-Voided Midstream Performed By: #### O BUDS, ADDONUAPLUS, CUU #### [address] Urobilinogen,Urine Normal Normal Normal [facility] Comment on above: Order Comment: Name Collection Type:: Clean-Voided Midstream Performed By: #### O BUDS, ADDONUAPLUS, CUU #### [place] [address] [place] WBC,Urine 20-49 High 0-4 [facility] Comment on above: Order Comment: Name Collection Type:: Clean-Voided Midstream Performed By: #### O BUDS, ADDONUAPLUS, CUU #### [facility] [address] [place] [address] Ketones Auto test strip (U) [Mass/Vol]Ordered By: Sanaz Mathur on 09-09-2022 Ketones (U) [Mass/Vol] 4+ Negative [facility] - Drug toxicology Ordered By: Sanaz Mathur on 09-09-2022 Opiates Ql (U) Negative Negative [facility] Laboratory - UrinalysisOrder ed By: Sanaz Mathur on 09-09-2022 Hyaline casts LM Ql (Urine sed) None seen [LPF] 0-8 [facility] Nitrite Test strip Ql (U)Ord ered By: Sanaz Mathur on 09-09-2022 Nitrite Ql (U) Negative Negative [facility] OB Urine Drug Screen (NO THC )on 09-09-2022 Amphetamine Screen,Urine Negative Normal Negative [facility] Comment on above: Performed By: #### O BUDS, ADDONUAPLUS, CUU #### [facility] [address] [place] [address] Barbiturate Screen,Urine Negative Normal Negative [facility] Comment on above: Performed By: #### O BUDS, ADDONUAPLUS, CUU #### [facility] [address] [place] [address] [place] Benzodiazepines Screen,Urine Negative Normal Negative [facility] Comment on above: Performed By: #### O BUDS, ADDONUAPLUS, CUU #### [facility] [address] [place] [address] [place] Cocaine Screen,Urine Negative Normal Negative [facility] Comment on above: Performed By: #### O BUDS, ADDONUAPLUS, CUU #### [facility] [address] [place] [address] Opiate Screen,Urine Negative Normal Negative [facility] Comment on above: Performed By: #### O BUDS, ADDONUAPLUS, CUU #### [facility] [address] [id number] [facility] Phencyclidine Screen, Urine Negative Normal Negative [facility] Comment on above: Result Comment: Thes e are unconfirmed results and should not be used for legal purposes. Drug Cut-Off Concentration: AMPH 1000 ng/mL ДМИТРИЙ 200 ng/mL SUAD 200 ng/mL COCM 300 ng/mL OP 300 ng/mL PCP 25 ng/mL PERFORMED BY: [place] [address] PATHOLOGIST EDUCATION PROGRAM ASSOCIATE ALIX MCLEOD M.D. Performed By: #### O BUDS, [facility], [facility] #### [address] Phencyclidine Screen Ql (U)O rdered By: Sanaz Mathur on 09-09-2022 Phencyclidine Ql (U) Negative Negative [facility] Comment on above: These are unconfirme d results and should not be used for legal purposes. Drug Cut-Off Concentration: AMPH 1000 ng/mL ДМИТРИЙ 200 ng/mL SUAD 200 ng/mL COCM 300 ng/mL OP 300 ng/mL PCP 25 ng/mL Protein Auto test strip (U) [Mass/Vol]Ordered By: Sanaz Mathur on 09-09-2022 Protein (U) [Mass/Vol] 30 mg/dL Negative Fi [facility] Specific gravity Auto test s trip (U) [Rel density]Ordered By: Sanaz Mathur on 09-09-2022 Specific gravity (U) [Rel density] 1.029 1.001-1.030 [facility] Squamous epithelial cells de tection in urine sediment by light microscopyOrdered By: Sanaz Mathur on 09-09-2022 Epithelial cells.squamous LM Ql (Urine sed) 10-19 [HPF] 0-2 [facility] Urine Cultureon 09-09-2022 Bacteria identified Cx Nom (U) >100,000 colonies/ml mixed bacterial skin contaminants 2 Days PERFORMED BY: [place] [address] PATHOLOGIST EDUCATION PROGRAM ASSOCIATE ALIX MCLEOD M.D. Normal [facility] Comment on above: Performed By: #### O BUDS, ADDBOBMASHA, CUU #### [facility] [address] Urine bacteria detection by automated methodOrdered By: Sanaz Mathur on 09-09-2022 Bacteria Auto Ql (U) 2+ None Seen [facility] Urine clarity by refractomet ry automatedOrdered By: Sanaz Mathur on 09-09-2022 Clarity Refractometry automated (U) Cloudy Clear [facility] Urine cocaine detectionOrder ed By: Sanaz Mathur on 09-09-2022 Cocaine Ql (U) Negative Negative [facility] Urine culture routineOrdered By: Sanaz Mathur on 09-09-2022 Bacteria identified Cx Nom (U) 2 Days [facility] Urine glucose measurement by automated test strip (mass/volume)Ordered By: Sanaz Mathur on 09-09-2022 Glucose Auto test strip (U) [Mass/Vol] Normal mg/dL Normal [facility] Urine hemoglobin detection b y automated test stripOrdered By: Sanaz Mathur on 09-09-2022 Hemoglobin Auto test strip Ql (U) Negative Negative [facility] Urine leukocyte esterase det ection by automated test stripOrdered By: Sanaz Mtahur on 09-09-2022 Leukocyte esterase Auto test strip Ql (U) 2+ Negative [facility] Urobilinogen Auto test strip (U) [Mass/Vol]Ordered By: Sanaz Mathur on 09-09-2022 Urobilinogen (U) [Mass/Vol] Normal mg/dL Normal [facility] pH Auto test strip (U)Ordere d By: Sanaz Mathur on 09-09-2022 pH (U) 6.0 [pH] 5.0-9.0 [facility] Office Visit (Family Medicin e)on 09-03-2022 Follow-up visit Diagnoses/Problems Atypical chest pain (786.59) (R07.89) Bipolar and related disorder (296.80) (F31.9) Dysuria (788.1) (R30.0) Fibromyalgia (729.1) (M79.7) Schizophrenia (295.90) (F20.9) (V22.2) (Z34.90) Hyperglycemia (790.29) (R73.9) Morbid obesity with BMI of 45.0-49.9, adult (278.01,V85.42) (E66.01,Z68.42) Orders Bipolar and related disorder Adult Psychology Referral Evaluation and Treatment Evaluate AND Treat Status: Hold For - Scheduling Requested for: [id number] Patient Discussion/Summary Patient education provided. Stay current with age appropriate health maintenance as instructed. Stay current with proper immunizations. Appointment here or ER with new or worsening symptoms' Keep appropriate follow-up visit. 3 months see counselor see OB low carb diet Chief Complaint back pain History of Present Illness new bipolar off meds see counselor so meds a concern dysuria resolved fibromyalgia stable on no meds schizophrenia stable see counselor/psychiatry 6 months hyperglycemia diet Review of Systems Patient denies any constitutional symptoms. No complaints of sore throat or difficulty swallowing. No earache or trouble with hearing. No complaints of neck soreness or swelling. No complaints of blurry vision, or double vision. No headache, numbness, tingling, weakness, No complaints of palpitation, chest pain. No wheezing or cough or, shortness of breath. No complaints of abdominal pain, vomiting, diarrhea or constipation No complaints of loose stool or rectal bleeding. No complaints of swelling, No complaints of skin lesions or rash, No complaints of hematuria or dysuria,loose stool, constipation, No complaints of fatigue, mood symptoms. No recent weight loss or weight gain or cold or heat intolerance. 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 Over the last 2 weeks have you felt down, depressed or hopeless? (If yes, answer PHQ-9 below)No PHQ-2 #2. Over the last 2 weeks have you felt little interest or pleasure in doing things? (If yes, answer PHQ-9 below)No Falls Screening (Age 18+)a) No falls within the last year O2 Mvwwjbtpst41 Neck Ckutfmkxtmxrs63 Physical Exam General exam: Patient awake and alert. Psychological exam: Normal mood and affect, alert and oriented 3. Head exam: Head normocephalic atraumatic Ocular exam: pupils equal round reactive to light extraocular movements intact sclera noninjected and nonicteric Nasal exam: nares patent bilaterally without discharge Oral exam: Throat clear, normal oral mucosa, no swelling or lesions noted Ear exam: External ear canal patent, TM normal bilaterally Neck exam: neck supple without JVD thyromegaly adenopathy or bruit Pulmonary exam: lungs are clear without wheeze rales or rhonchi good air exchange no respiratory distress Cardiac exam: heart regular rate and rhythm without murmur, gallop, rub Abdominal exam: abdomen obese soft nontender positive bowel sounds no hepatosplenomegaly no rebound or guarding extremity exam: extremities full range of motion without clubbing cyanosis or edema. Musculoskeletal exam: Normal neurovascular exam of the upper and lower extremities bilaterally Neurologic exam: Neurologically alert and oriented 3, cranial nerves II through XII grossly intact normal gross motor sensory and cerebellar function. Dermatology exam: Skin without rash or icterus, no focal malignant lesions identified 'Scores and Scales' Signatures Electronically signed by : Orlando Pace MD; Sep 03 2022 10:21AM EST (Author) Normal [facility] Glucose Tolerance 3 Houron 0 08-16-2022 Glucose Tolerance 3 Hour High [facility] Comment on above: Order Comment: PT FI NISHED 100G GLUCOLA AT 0640 Reason for Exam Abn glucose in preg-unsp Result Comment: FAST ING 102 H Col: 08/16/22 0600 1HR GLU 192 Col: 08/16/22 0751 2HR GLU 111 Col: 08/16/22 0845 3HR GLU 119 Col: 08/16/22 0943 NON-GESTATIONAL GESTATIONAL FASTING 70-100 < 92 1 HOUR < 200 < 180 2 HOUR < 140 < 153 3 HOUR NOT ESTABLISHED < 140 PERFORMED BY: [place] [address] PATHOLOGIST EDUCATION PROGRAM ASSOCIATE ALIX MCLEOD M.D. Performed By: #### G TT3 #### [facility] [address] [place] [id number] [facility] Serum or plasma glucose tole mellisa 3 hours panelOrdered By: EVAN MOORE on 08-16-2022 Glucose tolerance 3 hours panel See comment [facility] Comment on above: FASTING 102 H Col: 0 08/16/22 0600 1HR GLU 192 Col: 08/16/22 0751 2HR GLU 111 Col: 08/16/22 0845 3HR GLU 119 Col: 08/16/22 0943 Glucose,1 Hour PP 50gm Doseo n 08-09-2022 Glucose [Mass/Vol] 155 mg/dL High 60-140 [facility] Comment on above: Order Comment: Reaso n for Exam 25 weeks gestation of ;Encounter for other specifie Result Comment: PERF ORMED BY: [place] [address] PATHOLOGIST EDUCATION PROGRAM ASSOCIATE ALIX MCLEOD M.D. Performed By: #### G [id number], #### [facility] [address] [place], [place] [id number] [facility] Hematocrit [Volume Fraction] of Blood by Automated countOrdered By: EVAN MOORE on 08-09-2022 Hematocrit (Bld) [Volume fraction] 36.1 % Normal 34.0-46.4 [facility] Comment on above: Order Comment: Reaso n for Exam 25 weeks gestation of ;Encounter for other specifie Result Comment: PERF ORMED BY: [place] [address] PATHOLOGIST EDUCATION PROGRAM ASSOCIATE ALIX MCLEOD M.D. Performed By: #### G [id number], #### [facility] [address] Hemoglobin [Mass/volume] in BloodOrdered By: EVAN MOORE on 08-09-2022 Hemoglobin (Bld) [Mass/Vol] 11.7 g/dL Low 11.8-15.4 [facility] Comment on above: Order Comment: Reaso n for Exam 25 weeks gestation of ;Encounter for other specifie Performed By: #### G [id number], #### [facility] [address] [place] [address] No Panel InformationOrdered By: EVAN MOORE on 08-09-2022 Glucose 1 Hour Postprandial (Timed) 155 mg/dL 60-140 [facility] COVID-19 FRMCon 04-20-2022 SARS-CoV-2 (COVID-19) RNA RENÉE+probe Ql (Unsp spec) Negative Normal Negative [facility] Comment on above: Order Comment: Name Collection Type:: Clean-Voided Midstream Result Comment: Testing for SARS-CoV-2 by RT-PCR This test was developed and its performance characteristics determined by [employer] and validated at the [facility]. This test has not been FDA cleared or approved. This test has been authorized by FDA under an Emergency Use Authorization (EUA). This test has been validated in accordance with the FDA's Guidance Document (Policy for Diagnostics Testing in Laboratories Certified to Perform High Complexity Testing under CLIA prior to Emergency Use Authorization for Coronavirus Disease-2019 during the Public Health Emergency) issued on October 28, 2019. This test is only authorized for the duration of time the declaration that circumstances exist justifying the authorization of the emergency use of in vitro diagnostic tests for detection of SARS-CoV-2 virus and/or diagnosis of COVID-19 infection under section 564(b)(1) of the Act, 21 U.S.C. 360bbb-3(b)(1), unless the authorization is terminated or revoked sooner. PERFORMED BY: [place] [address] PATHOLOGIST EDUCATION PROGRAM ASSOCIATE ALIX MCLEOD M.D. Performed By: #### O CELESTE DYSON CUU #### [place] [id number] [facility] Quick Strepon 04-20-2022 Quick Strep Streptococcus pyogen es Ag [Presence] in Throat by Rapid immunoassay Negative for Group A Strep Antigen Note 1 NOTE 2 Results are those of a screening test. NOTE 3 If clinically indicated please order a culture. NOTE 4 NOTE 5 Reference range = Negative PERFORMED BY: [place] [address] PATHOLOGIST EDUCATION PROGRAM ASSOCIATE ALIX MCLEOD M.D. [facility] Comment on above: Performed By: #### O CELESTE DYSON CUU #### [place] [id number] [facility] Streptococcus pyogenes antig en detectionOrdered By: Gary Candelario on 04-20-2022 S. pyogenes Ag Ql (Unsp spec) [facility] CHEMISTRYOrdered By: SYSTEM SYSTEM on 03-25-2022 Amphetamines Screen method >1000 ng/mL Ql (U) Negative (03/25/22 3:55 PM) Normal Negative [facility] Remisol Barbiturates Screen Ql (U) Negative (03/25/22 3:55 PM) Normal Negative [facility] Remisol Benzodiazepines Ql (U) Negative (03/25/22 3:55 PM) Normal Negative [facility] Remisol Cocaine Ql (U) Negative (03/25/22 3:55 PM) Normal Negative [facility] Remisol Opiates Screen Ql (U) Negative (03/25/22 3:55 PM) Normal Negative [facility] Remisol Phencyclidine Screen method >25 ng/mL Ql (U) Negative (03/25/22 3:55 PM) Normal Negative [facility] Remisol Tetrahydrocannabinol Screen method >50 ng/mL Ql (U) Negative (03/25/22 3:55 PM) Normal Negative [facility] Remisol CHEMISTRYOrdered By: Joann Mendez on 03-25-2022 HbA1c (Bld) [Mass fraction] 5.4 % Normal <=5.9% [facility] ChemAutoSS HEMATOLOGYOrdered By: SYSTEM SYSTEM on 03-25-2022 Basophils/100 WBC (Bld) 0.5 % Normal 0.0 - 2.0 % [facility] HemeAutoSS Basophils/Leukocytes Auto (Bld) [Pure # fraction] 0.1 E9/L Normal 0.0 - 0.2 E9/L [facility] HemeAutoSS Eosinophils/100 WBC (Bld) 0.2 % Normal 0.0 - 8.0 % [facility] HemeAutoSS Eosinophils/Leukocytes Auto (Bld) [Pure # fraction] 0.0 E9/L Normal 0.0 - 0.5 E9/L [facility] HemeAutoSS Lymphocytes/100 WBC (Bld) 15.9 % Normal 14.0 - 50.0 % [facility] HemeAutoSS Lymphocytes/Leukocytes Auto (Bld) [Pure # fraction] 2.4 E9/L Normal 1.0 - 4.0 E9/L [facility] HemeAutoSS Monocytes/100 WBC (Bld) 3.5 % Low 4.0 - 14.0 % [facility] HemeAutoSS Monocytes/Leukocytes Auto (Bld) [Pure # fraction] 0.5 E9/L Normal 0.2 - 1.0 E9/L [facility] HemeAutoSS Neutrophils/100 WBC (Bld) 79.9 % High 36.0 - 75.0 % [facility] HemeAutoSS Neutrophils/Leukocytes Auto (Bld) [Pure # fraction] 12.1 E9/L High 2.0 - 7.5 E9/L [facility] HemeAutoSS HEMATOLOGYOrdered By: Lissy Rivera on 03-25-2022 Erythrocyte distribution width (RBC) [Ratio] 15.7 % High 10.9 - 14.2 % [facility] HemeAutoSS Hematocrit (Bld) [Volume fraction] 38.1 % Normal 34.0 - 46.0 % [facility] HemeAutoSS Hemoglobin (Bld) [Mass/Vol] 12.8 g/dL Normal 12.0 - 16.0 gm/dL [facility] HemeAutoSS MCH (RBC) [Entitic mass] 26.5 pg Low 27.0 - 34.0 pg [facility] HemeAutoSS MCHC (RBC) [Mass/Vol] 33.6 g/dL Normal 31.4 - 36.0 gm/dL [facility] HemeAutoSS MCV (RBC) [Entitic vol] 78.7 fL Low 80.0 - 100.0 fL [facility] HemeAutoSS Platelet mean volume (Bld) [Entitic vol] 8.5 fL Normal 6.4 - 10.8 fL [facility] HemeAutoSS Platelets (Bld) [#/Vol] 388.0 E9/L Normal 150. 0 - 500.0 E9/L [facility] HemeAutoSS RBC (Bld) [#/Vol] 4.8 E12/L Normal 4.3 - 5.9 E12/L [facility] HemeAutoSS WBC corrected for nucl RBC Auto (Bld) [#/Vol] 15.2 E9/L High 4.0 - 11.0 E9/L [facility] HemeAutoSS Comment on above: Result Comment: Slid e reviewed by KD. URINALYSISOrdered By: Atif Mendez on 03-25-2022 Bacteria LM Ql (Urine sed) 1+ /HPF Invalid Interpretation Code Trace/HPF [facility] UA Auto SS Bilirubin Ql (U) Negative (03/25/22 3:55 PM) Normal Negative [facility] UA Auto SS Clarity (U) SL CLOUDY Invalid Interpretation Code [facility] UA Auto SS Color (U) Yellow (03/25/22 3:55 PM) Normal Yellow [facility] UA Auto SS Crystals LM Ql (Urine sed) Present (03/25/22 3:55 PM) Normal [facility] UA Auto SS Epithelial cells.squamous LM.HPF (Urine sed) [#/Area] 0-2 /HPF Normal 0-2/HPF [facility] UA Aut o SS Glucose Test strip (U) [Mass/Vol] Negative (03/25/22 3:55 PM) Normal Negative [facility] UA Auto SS Hemoglobin Ql (U) Negative (03/25/22 3:55 PM) Normal Negative [facility] UA Auto SS Ketones (U) [Mass/Vol] Negative (03/25/22 3:55 PM) Normal Negative [facility] UA Auto SS Wann.plasma/Wann. RBC (Bld) [Mass ratio] 0-3 /HPF Normal 0-3/HPF [facility] UA A uto SS Mucus Ql (Urine sed) 1+ (03/25/22 3:55 PM) Normal [facility] UA Auto SS Nitrite Ql (U) Negative (03/25/22 3:55 PM) Normal Negative [facility] UA Auto SS pH (U) 6.0 *NA* (03/25/22 3:55 PM) Invalid Interpretation Code 5.0 - 9.0 [facility] UA Auto SS Protein (U) [Mass/Vol] Negative (03/25/22 3:55 PM) Normal Negative [facility] UA Auto SS Specific gravity (U) [Rel density] >=1.030 *NA* (03/25/22 3:55 PM) Invalid Interpretation Code 1.005 - 1.030 [facility] UA Auto SS UA Spec Desc Clean Catch (03/25/22 3:55 PM) Normal [facility] UA Auto SS Urobilinogen Qn (U) [id number] {Lei'U}/dL Normal 0.0 - 1.0 EU/dL [facility] UA Auto SS WBC Auto Ql (U) Negative (03/25/22 3:55 PM) Normal Negative [facility] UA Auto SS WBC LM.HPF (Urine sed) [#/Area] 0-5 /HPF Normal 0-5/HPF [facility] UA Auto SS Echocardiogramon 02-07-2022 Echocardiography [facility] , [address] [place] [address], [address] [address] and TRANSTHORACIC ECHOCARDIOGRAM REPORT Patient Name: SCARLET DURAND Reading Physician: [id number] Alejandro Castillo MD Study Date: 02/07/2022 Referring Physician: Mattie Lipscomb MRN/PID: [id number] PCP: Accession/Order#: [id number] Department Location: [facility] Date of : 2000 Fellow: Gender: F Nurse: Admit Date: Processing Archivist: Mattie Collier [facility] [place] Admission Status: Outpatient Additional Staff: Height: 162.56 cm CC Report to: Weight: 123.38 kg Study Type: Echocardiogram BSA: 2.23 m2 Blood Pressure: 129 /87 mmHg Diagnosis/ICD: R07.89-Other chest pain Indication: Atypical chest pain Procedure/CPT: Echo Complete w Full [id number] Patient History: Pertinent History: Bipolar disorder; Schizophrenia; Morbid obesity; Atypical chest pain; Fibromyalgia. Study Detail: The following Echo studies were performed: 2D, M-Mode, Doppler and color flow. PHYSICIAN INTERPRETATION: Left Ventricle: The left ventricular systolic function is normal, with an estimated ejection fraction of 55-60%. There are no regional wall motion abnormalities. The left ventricular cavity size is normal. Spectral Doppler shows a normal pattern of left ventricular diastolic filling. There are normal left ventricular filling pressures. Left Atrium: The left atrium is normal in size. Right Ventricle: The right ventricle is normal in size. There is normal right ventricular global systolic function. Right Atrium: The right atrium is normal in size. Aortic Valve: The aortic valve is trileaflet. There is no evidence of aortic valve regurgitation. The peak instantaneous gradient of the aortic valve is 6.6 mmHg. Mitral Valve: The mitral valve is normal in structure. There is trace mitral valve regurgitation. Tricuspid Valve: The tricuspid valve is structurally normal. There is trace tricuspid regurgitation. The Doppler estimated RVSP is within normal limits at 22.1 mmHg. Pulmonic Valve: The pulmonic valve is structurally normal. There is mild pulmonic valve regurgitation. Pericardium: There is a trivial pericardial effusion. Aorta: The aortic root is normal. In comparison to the previous echocardiogram(s): There are no prior studies on this patient for comparison purposes. CONCLUSIONS: 1. The left ventricular systolic function is normal with a 55-60% estimated ejection fraction. 2. RVSP within normal limits. QUANTITATIVE DATA SUMMARY: 2D MEASUREMENTS: Normal Ranges: Ao Root d: 3.30 cm (2.0-3.7cm) LAs: 3.93 cm (2.7-4.0cm) IVSd: 0.65 cm (0.6-1.1cm) LVPWd: 0.51 cm (0.6-1.1cm) LVIDd: 5.41 cm (3.9-5.9cm) LVIDs: 3.58 cm LV Mass Index: 46.9 g/m2 LV % FS 33.8 % LA VOLUME: Normal Ranges: LA Vol A4C: 51.0 ml (22+/-6mL/m2) LA Vol A2C: 56.4 ml LA Vol BP: 55.6 ml LA Vol Index A4C: 22.9ml/m2 LA Vol Index A2C: 25.3 ml/m2 LA Vol Index BP: 25.0 ml/m2 LA Volume Index: 25.0 ml/m2 LA Vol A4C: 47.8 ml LA Vol A2C: 53.9 ml RA VOLUME BY A/L METHOD: Normal Ranges: RA Area A4C: 13.4 cm2 AORTA MEASUREMENTS: Normal Ranges: Asc Ao, d: 3.00 cm (2.1-3.4cm) LV SYSTOLIC FUNCTION BY 2D PLANIMETRY (MOD): Normal Ranges: EF-A4C View: 57.4 % (>55%) EF-A2C View: 60.5 % EF-Biplane: 57.7 % LV DIASTOLIC FUNCTION: Normal Ranges: MV Peak E: 0.80 m/s (0.7-1.2 m/s) MV Peak A: 0.63 m/s (0.42-0.7 m/s) E/A Ratio: 1.28 (1.0-2.2) MV e' 0.12 m/s (>8.0) MV lateral e' 0.13 m/s MV medial e' 0.10 m/s MV A Dur: 127.50 msec E/e' Ratio: 6.97 (<8.0) MV DT: 186 msec (150-240 msec) PulmV Sys Brett: 35.07 cm/s PulmV Mendez Brett: 36.87 cm/s PulmV S/D Brett: 0.95 PulmV A Revs Brett: 20.02 cm/s PulmV A Revs Dur: 121.79 msec MITRAL VALVE: Normal Ranges: MV DT: 186 msec (150-240msec) AORTIC VALVE: Normal Ranges: AoV Vmax: 1.28 m/s (<1.7m/s) AoV Peak P.6 mmHg (<20mmHg) LVOT Max Brett: 0.79 m/s (<1.1m/s) LVOT VTI: 16.90 cm LVOT Diameter: 1.98 cm (1.8-2.4cm) AoV Area,Vmax: 1.90 cm2 (2.5-4.5cm2) RIGHT VENTRICLE: RV 1 3.3 cm RV 2 2.0 cm RV 3 6.7 cm TAPSE: 20.0 mm RV s' 0.15 m/s TRICUSPID VALVE/RVSP: Normal Ranges: Peak TR Velocity: 1.88 m/s RV Syst Pressure: 22.2 mmHg (< 30mmHg) PULMONIC VALVE: Normal Ranges: PV Accel Time: 82 msec (>120ms) PV Max Brett: 0.8 m/s (0.6-0.9m/s) PV Max P.6 mmHg Pulmonary Veins: PulmV A Revs Dur: 121.79 msec PulmV A Revs Brett: 20.02 cm/s PulmV Mendez Brett: 36.87 cm/s PulmV S/D Brett: 0.95 PulmV Sys Brett: 35.07 cm/s AORTA: Asc Ao Diam 2.98 cm [id number] Alejandro Castillo MD Electronically signed on 02/07/2022 at 5:18:42 PM Final Normal [facility] 01-17-2022 RBC 5.26 x10E12/L High 4.00 - 5.20 [facility] Comment on above: Performed By: #### U RINC #### [facility] [address] [place] [address] [facility] 01-16-2022 Erythrocyte distribution width (RBC) [Ratio] 17.7 % High 11.5 - 14.5 [facility] Work Phone: Comment on above: Reference Range: 11. 5 - 14.5 Performed By: #### U RINC #### [facility] [address] [place] [address] Hematocrit (Bld) [Volume fraction] 43.5 % Normal 36.0 - 46.0 [facility] ers Work Phone: Comment on above: Reference Range: 36. 0 - 46.0 Performed By: #### U RINC #### [facility] [address] [place] [address] Hemoglobin (Bld) [Mass/Vol] 13.1 g/dL Normal 12.0 - 16.0 [facility]st Work Phone: Comment on above: Reference Range: 12. 0 - 16.0 Performed By: #### U RINC #### [facility] [address] [place] [address] MCHC (RBC) [Mass/Vol] 30.1 g/dL Low 32.0 - 36.0 [facility]st Work Phone: Comment on above: Reference Range: 32. 0 - 36.0 Performed By: #### U RINC #### [facility] [address] [place] [address] MCV (RBC) [Entitic vol] 83 fL Normal 80 - 100 M [facility] erst Work Phone: Comment on above: Performed By: #### U RINC #### [facility] [address] [place] [address] Platelets (Bld) [#/Vol] 406 10*3/uL Normal 150 - 450 [facility]st Work Phone: Comment on above: Performed By: #### U RINC #### [facility] [address] [place] [address] WBC (Bld) [#/Vol] 11.8 10*3/uL High 4.4 - 11.3 [facility] erst Work Phone: Comment on above: Performed By: #### U RINC #### [facility] [address] [place] [address] COMPREHENSIVE PANELon 2021 Albumin [Mass/Vol] 4.2 g/dL Normal 3.4 - 5.0 [facility] Comment on above: Performed By: #### C MP #### [address] [id number] ALP [Catalytic activity/Vol] 64 U/L Normal 33 - 110 [facility] Comment on above: Performed By: #### C MP #### [address] [id number] ALT [Catalytic activity/Vol] 12 U/L Normal 7 - 45 [facility] Comment on above: Result Comment: Joycelyn ents treated with Sulfasalazine may generate falsely decreased results for ALT. Performed By: #### C MP #### [address] [id number] Anion gap [Moles/Vol] 12 mmol/L Normal 10 - 20 [facility] Comment on above: Performed By: #### C MP #### [address] [id number] AST [Catalytic activity/Vol] 18 U/L Normal 9 - 39 [facility] Comment on above: Performed By: #### C MP #### [address] [id number] Bilirubin [Mass/Vol] 0.5 mg/dL Normal 0.0 - 1.2 [facility] Comment on above: Performed By: #### C MP #### [address] [id number] Calcium [Mass/Vol] 9.6 mg/dL Normal 8.6 - 10.3 [facility] Comment on above: Performed By: #### C MP #### [address] [id number] Chloride [Moles/Vol] 102 mmol/L Normal 98 - 107 [facility] Comment on above: Performed By: #### C MP #### [address] [id number] Creatinine [Mass/Vol] 0.66 mg/dL Normal 0.50 - 1.05 [facility] Comment on above: Performed By: #### C MP #### [address] [id number] eGFR FEMALE >90 Normal >90 [facility] Comment on above: Result Comment: CALC ULATIONS OF ESTIMATED GFR ARE PERFORMED USING THE 2020 CKD-EPI STUDY REFIT EQUATION WITHOUT THE RACE VARIABLE FOR THE IDMS-TRACEABLE CREATININE METHODS. https://sn.asnjournals.org/content/early//ASN.2020 676634 Performed By: #### C MP #### [address] [id number] Glucose [Mass/Vol] 71 mg/dL Low 74 - 99 [facility] Comment on above: Performed By: #### C MP #### [address] [id number] HCO3 (Bld) [Moles/Vol] 27 mmol/L Normal 21 - 32 [facility] Comment on above: Performed By: #### C MP #### [address] [id number] Potassium [Moles/Vol] 4.1 mmol/L Normal 3.5 - 5.3 [facility] Comment on above: Performed By: #### C MP #### [address] [id number] Protein [Mass/Vol] 7.9 g/dL Normal 6.4 - 8.2 [facility] Comment on above: Performed By: #### C MP #### [address] [id number] Sodium [Moles/Vol] 137 mmol/L Normal 136 - 145 [facility] Comment on above: Performed By: #### C MP #### [address] [id number] Urea nitrogen [Mass/Vol] 13 mg/dL Normal 6 - 23 [facility] Comment on above: Performed By: #### C MP #### [address] [id number] Cult, Urineon 01-16-2022 Bacteria identified Cx Nom (U) Abnormal [facility] erst Work Phone: FERRITINon 01-16-2022 FERRITIN 122 ug/L Normal 8 - 150 [facility] Comment on above: Performed By: #### F ERRI #### [facility] [address] [place] [address] Ferritin, Serumon 01-16-2022 Ferritin [Mass/Vol] 122 ug/L 8 - 150 [facility] erst Work Phone: HEMOGLOBIN A1Con 01-16-2022 Glucose [Mass/Vol] 105 mg/dL Normal [facility] Comment on above: Performed By: #### U RINC #### [facility] [address] [place] [address] HbA1c (Bld) [Mass fraction] 5.3 % Normal [facility] Comment on above: Result Comment: Diag nosis of Diabetes-Adults Non-Diabetic: < or = 5.6% Increased risk for developing diabetes: 5.7-6.4% Diagnostic of diabetes: > or = 6.5% . Monitoring of Diabetes Age (y) Therapeutic Goal (%) Adults: >18 <7.0 Pediatrics: 13-18 <7.5 7-12 <8.0 0- 6 7.5-8.5 [place] [employer]. Diabetes Care 33(S1), Jul 2009. Performed By: #### U RINC #### [facility] [address] [place] [address] Hemoglobin A1Con 01-16-2022 Glucose [Mass/Vol] 105 mg/dL [facility] erst Work Phone: HbA1c (Bld) [Mass fraction] 5.3 % [facility]st Work Phone: Comment on above: Diagnosis of Diabete s-Adults Non-Diabetic: < or = 5.6% Increased risk for developing diabetes: 5.7-6.4% Diagnostic of diabetes: > or = 6.5%. Monitoring of Diabetes Age (y) Therapeutic Goal (%) Adults: >18 <7.0 Pediatrics: 13-18 <7.5 7-12 <8.0 0- 6 7.5-8.5 [place] [employer]. Diabetes Care 33(S1), Jul 2009. IO UA (nonautomated w/o micr oscopy)on 01-16-2022 Protein (U) [Mass/Vol] Negative [facility] erst Work Phone: IO UA (nonautomated w/o microscopy) Normal (0.2-1.0 mg/dl) [facility] erst Work Phone: [phone] IO UA (nonautomated w/o microscopy) (+)small - 15 Abnormal [facility] erst Work Phone: IO UA (nonautomated w/o microscopy) Positive Abnormal [facility]st Work Phone: IO UA (nonautomated w/o microscopy) 6.0 1 [facility]st Work Phone: [phone] IO UA (nonautomated w/o microscopy) Negative [facility] er[facility] Work Phone: [phone] IO UA (nonautomated w/o microscopy) 1.025 1 [facility] Work Phone: [phone] IO UA (nonautomated w/o microscopy) Hazy [facility] erst Work Phone: IO UA (nonautomated w/o microscopy) Yellow [facility] erst Work Phone: LIPID PANEL (CORONARY RISK 2 )on 01-16-2022 Cholesterol [Mass/Vol] 219 mg/dL High 0 - 199 [facility] Comment on above: Result Comment: . AGE DESIRABLE BORDERLINE HIGH HIGH 0-19 Y 0 - 169 170 - 199 >/= 200 20-24 Y 0 - 189 190 - 224 >/= 225 >24 Y 0 - 199 200 - 239 >/= 240 All ranges are based on fasting samples. Specific therapeutic targets will vary based on patient-specific cardiac risk. . Pediatric guidelines reference:Pediatrics 2011, 128(S5). Adult guidelines reference: NCEP ATPIII Guidelines, BRANDYN 2001, 258:2486-97 . Venipuncture immediately after or during the administration of Metamizole may lead to falsely low results. Testing should be performed immediately prior to Metamizole dosing. Performed By: #### L IPID #### [address] [id number] Cholesterol in HDL [Mass/Vol] 50.0 mg/dL Normal [facility] Comment on above: Result Comment: . AGE VERY LOW LOW NORMAL HIGH 0-19 Y < 35 < 40 40-45 ---- 20-24 Y ---- < 40 >45 ---- >24 Y ---- < 40 40-60 >60 . Performed By: #### L IPID #### [address] [id number] Cholesterol in LDL [Mass/Vol] 147 mg/dL High 0 - 119 [facility] Comment on above: Result Comment: . NEAR BORD AGE DESIRABLE OPTIMAL HIGH HIGH VERY HIGH 0-19 Y 0 - 109 --- 110-129 >/= 130 ---- 20-24 Y 0 - 119 --- 120-159 >/= 160 ---- >24 Y 0 - 99 100-129 130-159 160-189 >/=190 . Performed By: #### L IPID #### [address] [id number] Cholesterol in VLDL [Mass/Vol] 22 mg/dL Normal 0 - 40 [facility] Comment on above: Performed By: #### L IPID #### [address] [id number] Cholesterol.total/Wanda sterol in HDL [Mass ratio] 4.4 {ratio} Normal [facility] Comment on above: Result Comment: REF VALUES DESIRABLE < 3.4 HIGH RISK > 5.0 Performed By: #### L IPID #### [address] [id number] Triglyceride [Mass/Vol] 109 mg/dL Normal 0 - 149 [facility] Comment on above: Result Comment: . AGE DESIRABLE BORDERLINE HIGH HIGH VERY HIGH 0 D-90 D 19 - 174 ---- ---- ---- 91 D- 9 Y 0 - 74 75 - 99 >/= 100 ---- 10-19 Y 0 - 89 90 - 129 >/= 130 ---- 20-24 Y 0 - 114 115 - 149 >/= 150 ---- >24 Y 0 - 149 150 - 199 200- 499 >/= 500 . Venipuncture immediately after or during the administration of Metamizole may lead to falsely low results. Testing should be performed immediately prior to Metamizole dosing. Performed By: #### L IPID #### [address] [id number] Laboratory - Chemistry and C hemistry - challengeon 01-16-2022 Albumin BCP dye [Mass/Vol] 4.2 g/dL 3.4 - 5.0 [facility] erst Work Phone: ALP [Catalytic activity/Vol] 64 U/L 33 - 110 [facility] erst Work Phone: ALT With P-5'-P [Catalytic activity/Vol] 12 U/L 7 - 45 [facility] erst Work Phone: Comment on above: Patients treated wit h Sulfasalazine may generate falsely decreased results for ALT. Anion gap [Moles/Vol] 12 mmol/L 10 - 20 [facility] erst Work Phone: AST With P-5'-P [Catalytic activity/Vol] 18 U/L 9 - 39 [facility] erst Work Phone: Bilirubin [Mass/Vol] 0.5 mg/dL 0.0 - 1.2 [facility] erst Work Phone: Calcium [Mass/Vol] 9.6 mg/dL 8.6 - 10.3 [facility] erst Work Phone: Chloride [Moles/Vol] 102 mmol/L 98 - 107 [facility] erst Work Phone: CO2 [Moles/Vol] 27 mmol/L 21 - 32 [facility] erst Work Phone: Creatinine [Mass/Vol] 0.66 mg/dL See Below [facility] erst Work Phone: Comment on above: Reference Range: 0.5 0 - 1.05 Glucose [Mass/Vol] 71 mg/dL below low threshold 74 - 99 [facility] erst Work Phone: Potassium [Moles/Vol] 4.1 mmol/L 3.5 - 5.3 [facility] erst Work Phone: Protein [Mass/Vol] 7.9 g/dL 6.4 - 8.2 [facility] erst Work Phone: Sodium [Moles/Vol] 137 mmol/L 136 - 145 [facility] Work Phone: Urea nitrogen [Mass/Vol] 13 mg/dL 6 - 23 [facility] erst Work Phone: Laboratory - Hematology and Cell countson 01-16-2022 RBC (Bld) [#/Vol] 5.26 {x10E12/L} above high threshold See Below [facility] erst Work Phone: Comment on above: Reference Range: 4.0 0 - 5.20 Lipid Panelon 01-16-2022 Cholesterol [Mass/Vol] 219 mg/dL above hig h threshold 0 - 199 [facility] Work Phone: Comment on above: . AGE DESIRABLE BORD SHERICE HIGH HIGH 0-19 Y 0 - 169 170 - 199 >/= 200 20-24 Y 0 - 189 190 - 224 >/= 225 >24 Y 0 - 199 200 - 239 >/= 240 All ranges are based on fasting samples. Specific therapeutic targets will vary based on patient-specific cardiac risk.. Pediatric guidelines reference:Pediatrics 2011, 128(S5). Adult guidelines reference: NCEP ATPIII Guidelines, BRANDYN 2001, 258:2486-97. Venipuncture immediately after or during the administration of Metamizole may lead to falsely low results. Testing should be performed immediately prior to Metamizole dosing. Cholesterol in HDL [Mass/Vol] 50.0 mg/dL [facility] [employer] Work Phone: Comment on above: . AGE VERY LOW LOW N ORMAL HIGH 0-19 Y < 35 < 40 40-45 ---- 20-24 Y ---- < 40 >45 ---- >24 Y ---- < 40 40-60 >60. Cholesterol in LDL [Mass/Vol] 147 mg/dL above high threshold 0 - 119 [facility] [employer] Work Phone: Comment on above: . NEAR BORD AGE VALENCIA RABLE OPTIMAL HIGH HIGH VERY HIGH 0-19 Y 0 - 109 --- 110-129 >/= 130 ---- 20-24 Y 0 - 119 --- 120-159 >/= 160 ---- >24 Y 0 - 99 100-129 130-159 160-189 >/=190. Cholesterol.total/Wanda sterol in HDL [Mass ratio] 4.4 {ratio} [facility] [employer] Work Phone: Comment on above: REF VALUESDESIRABLE < 3.4HIGH RISK > 5.0 Triglyceride [Mass/Vol] 109 mg/dL 0 - 149 [facility] Work Phone: Comment on above: . AGE DESIRABLE BORD SHERICE HIGH HIGH VERY HIGH 0 D-90 D 19 - 174 ---- ---- ----91 D- 9 Y 0 - 74 75 - 99 >/= 100 ---- 10-19 Y 0 - 89 90 - 129 >/= 130 ---- 20-24 Y 0 - 114 115 - 149 >/= 150 ---- >24 Y 0 - 149 150 - 199 200- 499 >/= 500. Venipuncture immediately after or during the administration of Metamizole may lead to falsely low results. Testing should be performed immediately prior to Metamizole dosing. Lipid Panel 22 mg/dL 0 - 40 [facility] Work Phone: No Panel Informationon 01-16 >90 >90 [facility] erst Work Phone: Comment on above: CALCULATIONS OF STEPHANIE MATED GFR ARE PERFORMED USING THE 2020 CKD-EPI STUDY REFIT EQUATION WITHOUT THE RACE VARIABLE FOR THE IDMS-TRACEABLE CREATININE METHODS.https://jasn.asnjournals.org/content// ASN.7846374957 Office Visiton 01-16-2022 Follow-up visit Diagnoses/Problems Encounter for preventive health examination (V70.0) (Z00.00) Bipolar and related disorder (296.80) (F31.9) Schizophrenia (295.90) (F20.9) Morbid obesity with BMI of 45.0-49.9, adult (278.01,V85.42) (E66.01,Z68.42) Atypical chest pain (786.59) (R07.89) Dysuria (788.1) (R30.0) Fibromyalgia (729.1) (M79.7) Orders Atypical chest pain Echocardiogram; Status:Hold For - Scheduling; Requested for:16Jan2022; IO EKG Electrocardiogram- 12 Lead; Status:Active - Perform Order; Requested for:16Jan2022; T4 - Free Thyroxine, Serum; Status:Active; Requested for:16Jan2022; TSH - Thyroid Stimulating Hormone, Serum; Status:Active; Requested for:16Jan2022; Bipolar and related disorder, Schizophrenia Adult Psychiatry Referral Evaluation and Treatment Evaluate AND Treat Status: Hold For - Scheduling Requested for: 16Jan2022 Dysuria Cult, Urine; Status:Active; Requested for:16Jan2022; IO UA (nonautomated w/o microscopy); Status:Active - Perform Order; Requested for:16Jan2022; Morbid obesity with BMI of 45.0-49.9, adult Complete Blood Count; Status:Active; Requested for:16Jan2022; Comprehensive Metabolic Panel; Status:Active; Requested for:16Jan2022; Ferritin, Serum; Status:Active; Requested for:16Jan2022; Hemoglobin A1C; Status:Active; Requested for:16Jan2022; Lipid Panel; Status:Active; Requested for:16Jan2022; Vitamin B12, Serum; Status:Active; Requested for:16Jan2022; Vitamin D 25-Hydroxy; Status:Active; Requested for:16Jan2022; Schizophrenia [facility] Referral Evaluation and Treatment Evaluate AND Treat Status: Hold For - Scheduling Requested for: 16Jan2022 Patient Discussion/Summary 1. has had EMGs for leg pain and wnl per pt may need better psych control 2. labs due 3. SCARLET DURAND has been advised that if NO results in the next 1-2 weeks from tests to let us know as this is not usual. Results should either be released and commented upon, called to patient, or they will receive a letter. SCARLET DURAND should follow up at next regularly scheduled visit unless otherwise advised. check ua check echo to er if hi/si-denies for now has crisis plan The patient was advised that of the new complaints mentioned today it is understood that there should be a full resolution or at least back to baseline health status. If condition deteriorates, or problems arise, or if anything discussed as a problem today does not RESOLVE-the patient will make a follow up appointment in a timely manner to discuss again and continue with further investigation. 3mo appt to er if c-worse mood etc Chief Complaint establish care c/o pain in bilateral legs x 1 year has not been on bipolar/schizophrenia meds x 1 month (unsure of names) pt is down from 400 lbs covid vax: declined pap: 12/2021 per pt lmp: 1 week ago History of Present IllnessThis patient SCARLET DURAND is here for a check-up visit 01/16/2022 Complaints: several NEW issues OTHER than as per CC Labs due History as charted No history of seizures, No history of AR / CAD, No history of CVA, + x years chest pain/NO shortness of breath, on and off xyears NONE now-advised ER if occurs No nausea, vomiting, diarrhea, + dysuria,NO hematuria, frequency, urgency or new incontinence issues, No new or more frequent headaches of concern or paresthesias, + chronic -improved issues with anxiety or depression, No suicidal or homicidal ideations. 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 No acute distress. Alert and oriented times 3. HEENT: Normal speech Extraocular eye motions intact and pain free. Pupils reactive and equally round. Conjunctivae clear RESPIRATORY: Equal breath sounds / no acute respiratory distress. No wheezes,rales, or rhonchi HEART: Regular rhythm without murmur, rub or gallop. ABDOMEN: Soft, nontender. No large masses, guarding or rebound. Normoactive bowel sounds. obese EXTREMITIES: NL rom and strength LEs and UEs 2+dps multiple tender pts c/w fibromyalgia Signatures Electronically signed by : Mattie Lipscomb MD; Jan 16 2022 1:58PM EST (Auth (more content not included)... Normal [employer] T4 - Free Thyroxine, Serumon 01-16-2022 Free T4 [Mass/Vol] 0.88 ng/dL See Below -[facility] erst Work Phone: Comment on above: Reference Range: 0.6 1 - 1.12 Thyroxine Free testing is performed using different testing methodology at [facility] than at other [facility]. Direct result comparisons should only be made within the same method.. Biotin can cause falsely elevated free T4 results. Patients taking a Biotin dose of up to 10 mg/day should refrain from taking Biotin for 24 hours before sample collection. Patient taking a Biotin dose of >10 mg/day should consult with their physician or the laboratory before the blood draw. THYROXINE,FREEon 01-16-2022 THYROXINE,FREE 0.88 ng/dL Normal 0.61 - 1.12 [facility] Comment on above: Result Comment: Thyr oxine Free testing is performed using different testing methodology at [facility] than at other [facility]. Direct result comparisons should only be made within the same method. . Biotin can cause falsely elevated free T4 results. Patients taking a Biotin dose of up to 10 mg/day should refrain from taking Biotin for 24 hours before sample collection. Patient taking a Biotin dose of >10 mg/day should consult with their physician or the laboratory before the blood draw. Performed By: #### T 4FRE #### [address] [id number] TSHon 01-16-2022 TSH Qn 0.97 m[IU]/L Normal 0.44 - 3.98 [facility] Comment on above: Result Comment: TSH testing is performed using different testing methodology at [facility] than at other [facility]. Direct result comparisons should only be made within the same method. Performed By: #### T SH2 #### [address] [id number] TSH - Thyroid Stimulating Ho rmone, Serumon 01-16-2022 TSH Qn 0.97 m[IU]/L See Below [facility] Work Phone: Comment on above: Reference Range: 0.4 4 - 3.98 TSH testing is performed using different testing methodology at [facility] than at [facility]. Direct result comparisons should only be made within the same method. Tobacco Screening.on 022 Fall risk assessment c) Not medically indicated [facility] Work Phone: Last menstrual period start date 08Jan2022 [facility] Work Phone: Tobacco use status [facility] b) No M [facility] erst Work Phone: URINALYSISon 01-16-2022 Appearance (U) Canceled Normal [facility] Comment on above: Order Comment: TEST URINALYSIS WAS CANCELLED, 01/16/2022 16:12 error/cf. Performed By: #### U A #### [address] [phone] ASCORBIC ACID Canceled Normal [facility] Comment on above: Order Comment: TEST URINALYSIS WAS CANCELLED, 01/16/2022 16:12 error/cf. Result Comment: Conc entrations > = 20 mg/dL of ascorbic acid can be expected to cause strong interference in the reactions testing for glucose, nitrite and blood. It is recommended to discontinue Vitamin C administration and retest in 10 hours. Performed By: #### U A #### [address] [id number] Bilirubin Ql (U) Canceled Normal [facility] Comment on above: Order Comment: TEST URINALYSIS WAS CANCELLED, 01/16/2022 16:12 error/cf. Performed By: #### U A #### [address], [place] [phone] Color (U) Canceled Normal [facility] Comment on above: Order Comment: TEST URINALYSIS WAS CANCELLED, 01/16/2022 16:12 error/cf. Performed By: #### U A #### [address] [id number] Glucose Ql (U) Canceled Normal [facility] Comment on above: Order Comment: TEST URINALYSIS WAS CANCELLED, 01/16/2022 16:12 error/cf. Performed By: #### U A #### [address], [place] [phone] Hemoglobin Ql (U) Canceled Normal [facility] Comment on above: Order Comment: TEST URINALYSIS WAS CANCELLED, 01/16/2022 16:12 error/cf. Performed By: #### U A #### [address], [place] [phone] Ketones Ql (U) Canceled Normal [facility] Comment on above: Order Comment: TEST URINALYSIS WAS CANCELLED, 01/16/2022 16:12 error/cf. Performed By: #### U A #### [address] [phone] Leukocyte esterase Test strip Ql (U) Canceled Normal [facility] Comment on above: Order Comment: TEST URINALYSIS WAS CANCELLED, 01/16/2022 16:12 error/cf. Performed By: #### U A #### [address] [phone] Nitrite Ql (U) Canceled Normal [facility] Comment on above: Order Comment: TEST URINALYSIS WAS CANCELLED, 01/16/2022 16:12 error/cf. Performed By: #### U A #### [address] [phone] pH Canceled Normal [facility] Comment on above: Order Comment: TEST URINALYSIS WAS CANCELLED, 01/16/2022 16:12 error/cf. Performed By: #### U A #### [address] [phone] Protein Ql (U) Canceled Normal [facility] Comment on above: Order Comment: TEST URINALYSIS WAS CANCELLED, 01/16/2022 16:12 error/cf. Performed By: #### U A #### [address] [id number] Specific gravity (U) [Rel density] Canceled Normal [facility] Comment on above: Order Comment: TEST URINALYSIS WAS CANCELLED, 01/16/2022 16:12 error/cf. Performed By: #### U A #### [address] [phone] UROBILINOGEN Canceled Normal [facility] Comment on above: Order Comment: TEST URINALYSIS WAS CANCELLED, 01/16/2022 16:12 error/cf. Performed By: #### U A #### [address] [phone] URINE CULTURE,BACTERIALon URINE CULTURE,BACTERIAL PATIENT: SCARLET DURAND LOCATION: [address]#: [id number] : 89 AGE: SEX: F ORDERED BY: MATTIE LIPSCOMB SOURCE: URINE COLLECTED: 01/16/22 16:10 ANTIBIOTICS AT [facility].: RECEIVED : 01/16/22 22:13 SITE: Clean Catch/Voided R E S U L T S URINE CULTURE,BACTERIAL FINAL 01/18/22 11:46 ISOLATE1 : Escherichia coli >100,000 CFU/ML Organism E coli Antibiotic BP INTRP Ampicillin S Ceftriaxone S Cefazolin S Ciprofloxacin S Nitrofurantoin S Gentamicin S Levofloxacin S Piperc/Tazobact S Trimeth/Sulfa S S=SUSCEPTIBLE I=INTERMEDIATE R=RESISTANT SDD=SUSCEPTIBLE DOSE DEPENDENT NS=NONSUSCEPTIBLE X=REPORTED IN ERROR Normal [facility] Comment on above: Performed By: #### U RINC #### [facility] [address] [place] [address] Urinalysison 01-16-2022 Appearance (U) Canceled [facility] Work Phone: Color (U) Canceled [facility] Work Phone: Glucose Ql (U) Canceled [facility]st Work Phone: Ketones Ql (U) Canceled [facility] Work Phone: Leukocyte esterase Test strip Ql (U) Canceled [facility] Work Phone: Protein (U) [Mass/Vol] Canceled [facility] erst Work Phone: RBC (U) [#/Vol] Canceled [facility] Work Phone: Specific gravity (U) [Rel density] Canceled [facility] Work Phone: Urinalysis Canceled [facility] Work Phone: Comment on above: Concentrations > = 2 0 mg/dL of ascorbic acid can be expected to cause strong interference in the reactions testing for glucose, nitrite and blood. It is recommended to discontinue Vitamin C administration and retest in 10 hours. VITAMIN B12on 01-16-2022 Cobalamin (Vitamin B12) [Mass/Vol] 224 pg/mL Normal 211 - 911 [facility] Comment on above: Performed By: #### V TB12 #### [address] [phone] VITAMIN D, 25-HYDROXYon 12-27 VITAMIN D, 25-HYDROXY 19 ng/mL Abnormal [facility] Comment on above: Result Comment: . DEFICIENCY: < 20 NG/ML INSUFFICIENCY: 20-29 NG/ML SUFFICIENCY: 30-100 NG/ML THIS ASSAY ACCURATELY QUANTIFIES THE SUM OF VITAMIN D3, 25-HYDROXY AND VIT D2,25-HYDROXY. Performed By: #### V TDOH #### [address] [phone] Vitamin B12, Serumon 022 Cobalamin (Vitamin B12) [Mass/Vol] 224 pg/mL 211 - 911 [facility] ers Work Phone: Vitamin D 25-Hydroxyon 01-16 25-hydroxyvitamin D3 [Mass/Vol] 19 ng/mL Abnormal [facility] Work Phone: Comment on above: .DEFICIENCY: < 20 NG /MLINSUFFICIENCY: 20-29 NG/MLSUFFICIENCY: 30-100 NG/MLTHIS ASSAY ACCURATELY QUANTIFIES THE SUM OFVITAMIN D3, 25-HYDROXY AND VIT D2,25-HYDROXY. HPV DNA Typingon 01-04-2022 HPV Type 16 Not detected Normal Not Detect [facility] HPV Type 18 Not detected Normal Not Detect [facility] HPVOH (Other types) Detected Abnormal Not Detect [facility] Comment on above: Result Comment: *Inc ludes 31,33,35,39,45,51,52,56,58,59,66,68 genotypes HPV DNA Typingon 12-30-2021 HPV Comment See below Normal [facility] Comment on above: Result Comment: Th is is information only. See above for results. HPV other genotypes: 31,33,35,39,45,51,52,56,58,59,66,68 The Rodriguez Jon HPV Test is a qualitative in-vitro test for the detection of Human Papillomavirus that provides specific genotyping information for HPV Types 16 and 18, while concurrently detecting 12 other high-risk HPV types 31,33,35, 39,45,51,52,56,58,59,66,68 in a pooled result. The test utilizes amplification of target DNA by Polymerase Chain Reaction (PCR) and nucleic acid hybridization. . Trichmonas Vaginalis Screen (EIA)on 12-30-2021 Trichomonas Vaginalis Screen (EIA) Negative Normal [facility] Comment on above: Performed By: #### E TRIC #### [facility] [address] [place] [address] Wet Prep-Medical Purposes On martinez 12-30-2021 Wet Prep Clue Cellls None Seen Normal [facility] Comment on above: Performed By: #### W ETPR #### [facility] [address] [place] [address] Wet Prep Trichomonas See EIA Normal [facility] Comment on above: Performed By: #### W ETPR #### [facility] [address] [place] [address] Wet Prep Yeast None Seen Normal [facility] Comment on above: Performed By: #### W ETPR #### [facility] [address] [place] [address] Gynecological Specimen (Cyto logy)on 12-29-2021 Gynecological Specimen (Cytology) [facility] [address] [place] [address] FINAL CYTOLOGY PAP REPORT Patient Name: SCARLET DURAND Accession No: [id number] Age Sex: 2000 22 Y / F Location: [facility] Account No: [id number] Collected: 12/29/2021 [facility] Rec No: [id number] Received: 01/01/2022 Attend Phys: EDUARD NGUYEN Completed: 01/09/2022 Perform Phys: EDUARD NGUYEN INTERPRETATION/RESULTS: Atypical squamous cells of undetermined significance. GENERAL CATEGORIZATION: Epithelial Cell Abnormality SPECIMEN ADEQUACY: Satisfactory for Evaluation. Endocervical cells/transformation zone component present. Specimen: THINPREP LIQUID BASE IMAGED DIAGNOSTIC History: Source: Thin Prep Site: Cervical History: Previous abnormal smear? No History of CA? No Lab Order#: [id number] Test Name Collected D AND T Result HPV Type 16 12/29/2021 Not Detected HPV Type 18 12/29/2021 Not Detected HPVOH (Other types) 12/29/2021 DETECTED HPV Comment 12/29/2021 See below Test Comment: This is information only. See above for results. HPV other genotypes: 31,33,35,39,45,51,52,56 ,58,59,66,68 The Rodriguez Jon HPV Test is a qualitative in-vitro test for the detection of Human Papillomavirus that provides specific genotyping information for HPV Types 16 and 18, while concurrently detecting 12 other high-risk HPV types 31,33,35, 39,45,51,52,56,58,59,66 ,68 in a pooled result. The test utilizes amplification of target DNA by Polymerase Chain Reaction (PCR) and nucleic acid hybridization. CPT: Technical: 93588 X1 Professional: 94975 X1 Screened by: VELIA HERNANDEZ(ASCP) ROLY ROBB M.D. 01/09/2022 Electronically signed out by Cervical cytology is a screening test primarily for squamous cancers and precursors and has associated false negative and positive results. New technologies such as liquid based sampling may decrease but not eliminate all false negative results. Please refer to established guidelines All gynecologic cytology specimen processing and diagnostic testing is processed and screened using a Thin Prep Tax Form Preparer at [facility] [address] [place] [address] All abnormal gynecologic interpretation is performed at [facility], unless otherwise noted in the report. Page 1 of 1 Abnormal [facility] Comment on above: Performed By: #### G YN #### [facility] [address] [place] [address] CULTURE URINEon 12-22-2020 CULTURE URINE Isolate 1 Klebsiella pneumoniae >100,000 cfu/mL of ORGANISM 1 Klebsiella pneumoniae ANTIBIOTIC M.I.C RX STATUS Ampicillin >=32 R F Ampicillin/Sulbactam >=32 R F Piperacillin/Tazobactam 8 S F Cefazolin <=4 S F Ceftazidime <=1 S F Ceftriaxone <=1 S F Ertapenem <=0.5 S F Imipenem <=0.25 S F Amikacin <=2 S F Gentamicin <=1 S F Tobramycin <=1 S F Ciprofloxacin <=0.25 S F Levofloxacin <=0.12 S F Nitrofurantoin 64 I F Trimethoprim/Sulfametho xazole <=20 S F Normal [facility] Comment on above: Performed By: #### U RCX #### [facility] [address] [place] [address] Kumar Mercedes UA (CLEAN/CATCH) NEWS VIDEOGRAPHER/MICRO I F IND.on 12-20-2020 Bilirubin Ql (U) Negative Normal NEGATIVE [facility] Comment on above: Performed By: #### U ACSIND UMICRO #### [facility] [address] [place] [address] Kumar Amgo Clarity (U) CLEAR Normal CLEAR [facility] Comment on above: Performed By: #### U ACSANGELA UMICRO #### [facility] [address] [address] Kumar Mago Color (U) LT. YELLOW Normal YELLOW [facility] Comment on above: Performed By: #### U ACSANGELA UMICRO #### [facility] [address] [address] Kumar Mago Glucose Ql (U) Negative Normal NEGATIVE [facility] Comment on above: Performed By: #### U ACSANGELA UMICRO #### [facility] [address] [place] [address] Kumar Mago Hemoglobin Ql (U) Negative Normal NEGATIVE [facility] Comment on above: Performed By: #### U ACSANGELA UMICRO #### [facility] [address] [place] [address] Kumar Mago Ketones Ql (U) 15 mg/dl Abnormal NEGATIVE [facility] Comment on above: Performed By: #### U ACSANGELA UMICRO #### [facility] [address] [place] [address] Kumar Mago LEUKOCYTES SMALL Abnormal NEGATIVE [facility] Comment on above: Performed By: #### U ACSANGELA UMICRO #### [facility] [address] [place] [address] Kumar Mago Nitrite Ql (U) Negative Normal NEGATIVE [facility] Comment on above: Performed By: #### U ACSANGELA UMICRO #### [facility] [address] [place] [address] Kumar Mago pH (U) 7.0 [pH] Normal 5-9 [facility] Comment on above: Performed By: #### U ACSANGELA UMICRO #### [facility] [address] [place] [address] Kumar Mago SPEC GRAVITY 1.020 Normal 1.005-<=1.0 25 [facility] Comment on above: Performed By: #### U ACSANGELA UMICRO #### [facility] [address] [place] [address] Kumarkendra Mercedes UA PROTEIN Negative Normal NEGATIVE/ TRACE [facility] Comment on above: Performed By: #### U ERYN BARRY #### [facility] [address] [place] [address] Kumar Mercedes UR MICRO IND INDICATED Normal [facility] Comment on above: Performed By: #### U QUENTIN BARRYRO #### [facility] [address] [place] [address] Kumar Mercedes Urobilinogen Qn (U) 0.2 {Lei'U}/dL Normal 0.2 - 1. 0 [facility] Comment on above: Performed By: #### U ERYN BARRY #### [facility] [address] [place] [address] Kumar Mercedes URINE MICROSCOPIC ONLYon BACTERIA LARGE Abnormal NONE SEEN [facility] Comment on above: Performed By: #### U ERYN BARRY #### [facility] [address] [place] [address] Kumar Mercedes Bacteria identified Cx Nom (U) INDICATED Normal [facility] Comment on above: Performed By: #### U ERYN BARRY #### [facility] [address] [place] [address] Kumarkendra Mercedes CAST NONE SEEN Normal NONE SEEN [facility] Comment on above: Performed By: #### U QUENTIN BARRYRO #### [facility] [address] [place] [address] Kumar Mago Crystals LM Nom (Urine sed) NONE SEEN Normal NONE SEEN [facility] Comment on above: Performed By: #### U QUENTIN BARRYRO #### [facility] [address] [place] [address] Kumarkendra Mercedes Epithelial cells LM Ql (Urine sed) MANY Abnormal NONE SEEN /RARE [facility] Comment on above: Performed By: #### U QUENTIN BARRYRO #### [facility] [address] [place] [address] Kumar Mago MUCOUS NONE SEEN Normal NONE SEEN [facility] Comment on above: Performed By: #### U ACSIND, UMICRO #### [facility] [address], [place] [address] Kumar Mercedes RBC 2-5 Abnormal 0-2 [facility] Comment on above: Performed By: #### U ACSIND, UMICRO #### [facility] [address], [place] [address] Kumar Mercedes WBC 20-50 Abnormal NONE SEEN [facility] Comment on above: Performed By: #### U ACSIND, UMICRO #### [facility] [address], [place] [address] Kumar Mercedes Progress Noteon 08-08-2020 Environmental Scientist Authentication Interface Message Text Maternal Medicine Consult Date of Service: 08/08/2020 Referring Provider: Rufina Andino Primary Care Provider: Luz Marina Fregoso APRN-CNP Reason for Consult: Dr. Rufina Andino requests that Scarlet be evaluated due to elevated BMI and history of Bipolar disease (no medications). Scarlet is a 20 y.o. at 17w4d gestation who presents for evaluation of medical history of morbid obesity and Bipolar Depression (per patient report) and schizophrenia. She cannot remember the names of the medications she was taking prior to . Once she found out she was , she stopped all her medications. She is currently looking for another counselor, since she states her prior psychiatrist retired. Prior : no HTN or GDM. Macrosomia for second child. No dystocia at time of delivery (). Thus far, no bleeding, leaking, cramping. She has no suicidal or homicidal ideation. She states she does not have auditory hallucinations but sometimes 'sees things'. Both Scarlet and her partner state she seems to be actually doing better today than even the way she was during the therapies with her multiple medications. They are both happy. OB History Para Term AB Living 3 2 2 0 0 2 SAB TAB Ectopic Multiple Live Births 0 0 0 0 2 # Outcome Date GA Lbr Kennedy/2nd Weight Sex Delivery Anes PTL Lv 3 Current 2 Term 02/09/18 39w2d 4.234 kg M Vag-Spont EPI GAUDENCIO 1 Term 11/07/16 40w2d 3.545 kg F Vag-Spont GAUDENCIO Past Medical History: Diagnosis Date #[id number] Anxiety Bipolar depression Bipolar disorder Nervous breakdown Obesity Schizophrenia History reviewed. No pertinent surgical history. No Known Allergies Social History Socioeconomic History Marital status: Unknown Spouse name: None Number of children: None Years of education: None Highest education level: None Occupational History None Tobacco Use Smoking status: Former Smoker Smokeless tobacco: Never Used Substance and Sexual Activity Alcohol use: Not Currently Drug use: Not Currently Types: Marijuana Sexual activity: None Other Topics Concern None Social History Narrative None Social Determinants of Health Social determinant risk not applicable to this patient. Infections Live with someone with or exposed to TB No History of STI's Chlamydia Rash or viral illness since last menstruation No 2nd STI GBS No 3rd STI Hx of Chicken Pox No vaccine Other infections Chronic yeast infections Partner has hx of genital herpes No Genetics Age is > than 35y as of estimated date No Thalassemia No Neural Tube Defect No Congenital Heart Defect Yes FOB and pt's dad heart murmur Down Syndrome No Alden-Sachs No Ana Disease No Sickle Cell Disease or Trait No Hemophilia, Thrombophilia No Muscular Dystrophy No Cystic Fibrosis No Reynolds's Chorea No Intellectual Disability/Autism Yes Daughter with autism, Seizures, low muscle tone Metabolic Disorder No Recurrent Loss, or a Stillbirth No Inherited Genetic or Chromosomal Disorder No Illicit; Rec.drugs; Alcohol since last menses No Family History Problem Relation Age of Onset Arthritis Mother Migraines Mother High Blood Pressure Father Heart Disease Father Bipolar Disorder Father Anxiety Disorder Father Stroke Father Schizophrenia Father Anxiety Disorder Sister Bipolar Disorder Brother Cancer Maternal Grandmother breast Cancer Maternal Grandfather ball cancer Cancer Paternal Grandmother breast cancer Outpatient Encounter Medications as of 08/08/2020 Medication Sig Dispense Refill multivitamin (VINATE ONE) tablet Take 1 Tablet by mouth daily No facility-administered encounter medications on file as of 08/08/2020. Review of Systems Negative except for positives in HPI. Physical Exam General: alert and oriented in no distress. Abd: gravid, nontender. Ultrasound findings: 1. Single living intrauterine with biometry consistent with clinical dates. 2. Anatomic survey was limited. However, no gross anomalies were identified. Limited structures were noted above. 3. Amniotic fluid appeared normal. 4. Placenta is posterior, grade 0. 5. Transabdominal cervical length appears normal. Assessment/Plan: Scarlet Albrecht is a 20 y.o. at 17w4d with: 1. Morbid obesity antepartum: Discussed risks to , including developing GDM, LGA, pre-eclampsia, malabsorption caused vitamin and mineral deficiencies, need for delivery, placental dysfunction in third trimester and even IUFD. Thus increased maternal and monitoring recommended. I will check her HgbA1C, TSH, Vitamin D/B12/B6. 2. Mental health: Bipolar Depression history, Schizophrenia history. She seems to be doing well. I encouraged her to look up and make an appointment to a new psychiatrist. I reassured them that thus far the anatomy US is normal, but limited by early gestational age. I would recommend a detailed anatomy evaluation (including heart) in 3-5 weeks, which was can try to schedule in [place] for them. She has had no mental health hospitalizations in past. Prior she has had no 'events' or worsening of psych status. I reassured Scarlet that if she needs to restart medications, the baby is already shaped, but Needs to grow the body and Mature. Thus we have many more medications that are available and optional during 2nd and 3rd trimester. Most important is for her mental health to remain stable. If she her psychiatrist recommends any medications for therapy, we are happy to review the Reproductive Toxicity reviews and recommend the safest for the remainder of the . Many of the symptoms she has had can be dependent on deficiencies in vitamins and minerals. I will check levels of Vit D, B6, B12. I recommended she start supplementing the following: Vitamin D3 5000 international units daily. Vitamin B Complex (needs Vitamin B12 500-1000mcg daily). Magnesium 400-500mg BID Recommended care plan thus far: Start low dose aspirin daily. 81mg Early 1hr GDS (19-20 weeks). 21-22 weeks: Detailed anatomic Ultrasound Serial growth ultrasound thereafter (indication is BMI >40). 32 weeks: weekly BPP (or NST/ASH) - may need to be increased to twice weekly if other indications arise. Goal: 39 weeks delivery (sooner if other indications arise). Follow up 4-5 weeks for detailed anatomy. The total patient time of the visit was 45 minutes, of which greater than 50% of the time was spent counseling and coordinating care. Normal [facility] Microscopic Urinalysison Bacteria, UA FEW Abnormal Negative /HPF [facility] [place], [place] Epithelial Cells, UA 20-50 [place] RBC (U) [#/Vol] 5-10 Abnormal [place] WBC, UA >100 High [place] Otheron 01-04-2020 Interpretation and review of laboratory results Abnormal [place] Urine Reflex to Cultureon Bilirubin Urine Negative Negative [place] Blood, Urine LARGE Abnormal Negative [place] Clarity, UA CLOUDY Abnormal Clear [place] Color, UA Yellow Straw/Yello w [place] Glucose, Ur Negative Negative mg/dL [place] Ketones Ql (U) Negative Negative mg/dL [place] Leukocyte esterase Test strip Ql (U) SMALL Abnormal Negative [place] Nitrite, Urine Negative Negative [place] pH, UA 5.0 [place] Protein (U) [Mass/Vol] TRACE Abnormal Negat ben mg/dL [place] Specific Abrams, UA 1.031 [place] Urine Reflex to Culture Yes M [place] Urobilinogen, Urine 0.2 <2.0 E.U./dL [place] Wet Prep, Genitalon 01-04-20 20 Clue Cells, Wet Prep None Seen [place] Interpretation and review of laboratory results Abnormal [place] Trichomonas Prep 4+ Abnormal [place] Yeast, Wet Prep None Seen [place] Microscopic Urinalysison Bacteria, UA FEW Abnormal Negative /HPF [place] Epithelial Cells, UA 20-50 [place] Hyaline Casts, UA 5-10 [place] RBC (U) [#/Vol] 5-10 Abnormal [place] Trichomonas, UA Present Abnormal None Seen /HPF [place] WBC, UA >100 High [place] Otheron 12-30-2019 Interpretation and review of laboratory results Abnormal [place] POC Urine Qualon 0 12-30-2019 Beta HCG ( test) Ql (U) [id number] [place] Beta HCG ( test) Ql (U) Negative Negative [place] Negative QC Pass/Fail Pass [place] Positive QC Pass/Fail Pass [place] Urine Reflex to Cultureon Bilirubin Urine Negative Negative [place] Blood, Urine MODERATE Abnormal Negative [place] Clarity, UA TURBID Abnormal Clear [place] Color, UA Yellow Straw/Yello w [place] Glucose, Ur Negative Negative mg/dL [place] Ketones Ql (U) Negative Negative mg/dL [place] Leukocyte esterase Test strip Ql (U) LARGE Abnormal Negative [place] Nitrite, Urine Negative Negative [place] pH, UA 6.5 [place] Protein (U) [Mass/Vol] TRACE Abnormal Negat ben mg/dL [place] Specific Abrams, UA 1.022 [place] Urine Reflex to Culture Yes [place] Urobilinogen, Urine 1.0 <2.0 E.U./dL [place] Microscopic Urinalysison Bacteria, UA Few /HPF [place] Epi Cells 10-20 /HPF [place] Interpretation and review of laboratory results Abnormal [place] RBC (U) [#/Vol] 3-5 Abnormal [place] WBC, UA 0-2 [place] Urine Drug Screen, Comprehen siveon 03-09-2019 Amphetamine Screen, Urine Negative Negative <500 ng/mL [place] Comment on above: Effective: 02/09/18 Methodology and/or Reference Range-Cutoff has changed. Barbiturate Screen, Ur Negative Negat ben <200 ng/mL [place] Comment on above: Effective: 02/09/18 Methodology and/or Reference Range-Cutoff has changed. Benzodiazepine Screen, Urine Negative Negative <150 ng/mL [place] Comment on above: Effective: 02/09/18 Methodology and/or Reference Range-Cutoff has changed. Cannabinoid Scrn, Ur Negative Negativ e <50 ng/mL [place] Cocaine Metabolite Screen, Urine Negative Negative <150 ng/mL [place] Comment on above: Effective: 02/09/18 Methodology and/or Reference Range-Cutoff has changed. Drug Screen Comment: see below [place] Comment on above: This method is a scr eening test to detect only these drug classes as part of a medical workup. Confirmatory testing by another method should be ordered if clinically indicated. Opiate Scrn, Ur Negative Negative <100 ng/mL [place] Comment on above: Effective: 02/09/18 Methodology and/or Reference Range-Cutoff has changed. PCP Screen, Urine Negative Negative <25 ng/mL [place] Tricyclic Negative Negative <300 ng/mL [place] Comment on above: Effective: 02/09/18 Methodology and/or Reference Range-Cutoff has changed. CBC Auto Differentialon 02-25 Anisocytosis Ql (Bld) 1+ [place] Bands Relative 15 % High 5 - 11 % [place] Basophils (Bld) [#/Vol] 0.1 10*3/uL 0 - 0.2 K/uL [place] Comment on above: Corrected result; pr eviously reported as 0.0 on 03/08/2019 at 23:01 by JOSE ALEJANDRO Basophils/100 WBC (Bld) 1.0 % [place] Comment on above: Corrected result; pr eviously reported as 0.3 on 03/08/2019 at 23:01 by JOSE ALEJANDRO Eosinophils (Bld) [#/Vol] 0.3 10*3/uL 0 - 0.7 K/uL [place] Comment on above: Corrected result; pr eviously reported as 0.1 on 03/08/2019 at 23:01 by JOSE ALEJANDRO Eosinophils/100 WBC (Bld) 3 % [place] Comment on above: Corrected result; pr eviously reported as 1.3 on 03/08/2019 at 23:01 by JOSE ALEJANDRO Erythrocyte distribution width (RBC) [Ratio] 16.6 % High 11.5 - 14.5 % [place] Hematocrit (Bld) [Volume fraction] 35.6 % Low 37 - 47 % [place] Hemoglobin (Bld) [Mass/Vol] 11.8 g/dL Low 12 - 16 g/dL [place] Interpretation and review of laboratory results Abnormal [place] Lymphocytes (Bld) [#/Vol] 2.9 10*3/uL 1 - 4.8 K/uL [place] Comment on above: Corrected result; pr eviously reported as 3.0 on 03/08/2019 at 23:01 by JOSE ALEJANDRO Lymphocytes/100 WBC (Bld) 26.0 % [place] Comment on above: Corrected result; pr eviously reported as 27.5 on 03/08/2019 at 23:01 by JOSE ALEJANDRO MCH (RBC) [Entitic mass] 24.5 pg Low 27 - 31.3 pg [place] MCHC (RBC) [Mass/Vol] 33.2 % 33 - 37 % [place] MCV (RBC) [Entitic vol] 73.8 fL Low 82 - 100 fL [place] Microcytes 1+ [place] Monocytes (Bld) [#/Vol] 0.6 10*3/uL 0.2 - 0.8 K/uL [place] Comment on above: Corrected result; pr eviously reported as 0.5 on 03/08/2019 at 23:01 by JOSE ALEJANDRO Monocytes/100 WBC (Bld) 4.8 % [place] Comment on above: Corrected result; pr eviously reported as 5.0 on 03/08/2019 at 23:01 by JOSE ALEJANDRO Neutrophils (Bld) [#/Vol] 7.3 10*3/uL High 1.4 - 6.5 K/uL [place] Comment on above: Corrected result; pr eviously reported as 7.2 on 03/08/2019 at 23:01 by JOSE ALEJANDRO Neutrophils/100 WBC (Bld) 51.0 % [place] Comment on above: Corrected result; pr eviously reported as 65.9 on 03/08/2019 at 23:01 by JOSE ALEJANDRO PLATELET SLIDE REVIEW Normal [place] Platelets (Bld) [#/Vol] 368 10*3/uL 130 - 400 K/uL [place] Poikilocytes 1+ [place] RBC (Bld) [#/Vol] 4.83 10*6/uL [place] WBC (Bld) [#/Vol] 11.0 10*3/uL High 4.8 - 10.8 K/uL [place] Comprehensive Metabolic Pane vean 03-08-2019 Albumin [Mass/Vol] 3.8 g/dL 3.5 - 4.6 g/dL [place] ALP [Catalytic activity/Vol] 65 U/L 40 - 130 U/L [place] ALT [Catalytic activity/Vol] 9 U/L 0 - 33 U/L [place] Anion gap [Moles/Vol] 13 mmol/L [place] AST [Catalytic activity/Vol] 10 U/L 0 - 35 U/L [place] Bilirubin Ql (U) <0.2 0.2 - 0.7 mg/dL [place] Calcium [Mass/Vol] 8.8 mg/dL 8.5 - 9.9 mg/dL [place] Chloride [Moles/Vol] 104 mmol/L [place] CO2 [Moles/Vol] 26 mmol/L [place] Creatinine [Mass/Vol] 0.64 mg/dL 0.5 - 0.9 mg/dL [place] GFR >60.0 >60 [place] Comment on above: >60 mL/min/1.73m2 EG FR, calc. for ages 18 and older using the MDRD formula (not corrected for weight), is valid for stable renal function. GFR Non- >60.0 >60 [place] Comment on above: >60 mL/min/1.73m2 EG FR, calc. for ages 18 and older using the MDRD formula (not corrected for weight), is valid for stable renal function. Globulin (S) [Mass/Vol] 3.8 g/dL High 2.3 - 3.5 g/dL [place] Glucose [Mass/Vol] 87 mg/dL 70 - 99 mg/dL [place] Interpretation and review of laboratory results Abnormal [place] Potassium [Moles/Vol] 3.5 mmol/L [place] Protein [Mass/Vol] 7.6 g/dL 6.3 - 8 g/dL [place] Sodium [Moles/Vol] 143 mmol/L [place] Urea nitrogen [Mass/Vol] 8 mg/dL 6 - 20 mg/dL [place] Lactic Acid, Plasmaon 2018 Lactate [Moles/Vol] 0.7 mmol/L 0.5 - 2. 2 mmol/L [place] POCT Blood Stool Occulton Hemoglobin.gastrointest inal Ql (Stl) Negative [place] Interpretation and review of laboratory results Normal [place] QC OK? pass [place] POCT Creatinineon 03-08-2019 Creatinine [Mass/Vol] 0.6 mg/dL [place] Interpretation and review of laboratory results Normal [place] Urinalysis Reflex to Culture on 03-08-2019 Bilirubin Urine Negative Negative [place] Blood, Urine LARGE Abnormal Negative [place] Clarity, UA CLOUDY Abnormal Clear [place] Color, UA Yellow Straw/Yello w [place] Glucose, Ur Negative Negative mg/dL [place] Interpretation and review of laboratory results Abnormal [place] Ketones Ql (U) Negative Negative mg/dL [place] Leukocyte esterase Test strip Ql (U) Negative Negative [place] Nitrite, Urine Negative Negative [place] pH, UA 5.5 [place] Protein (U) [Mass/Vol] TRACE Abnormal Negat ben mg/dL [place] Specific Abrams, UA 1.023 [place] Urine Reflex to Culture YES [place] Urobilinogen, Urine 1.0 <2.0 E.U./dL [place] Basic Metabolic Panelon 10-0 Anion gap 3 molar conc 16 mmol/L Critically high 7-13 [facility] Calcium mass conc 9.1 mg/dL Normal 8.6-10.2 [facility] Chloride molar conc 105 mmol/L Normal 98-107 [facility] CO2 molar conc 24 mmol/L Normal 22-29 [facility] Creatinine mass conc 0.65 mg/dL Normal 0.50-0.90 [facility] GFR/1.73 sq M predicted among blacks MDRD vol rate/area (S/P/Bld) mL/min/{1.73_m2} Normal >60 [facility] Comment on above: Result Comment: >60 mL/min/1.73m2 EGFR, calc. for ages 18 and older using theMDRD formula (not corrected for weight), is valid for stablerenal function. GFR/1.73 sq M.predicted MDRD vol rate/area mL/min/{1.73_m2} Normal >60 [facility] Comment on above: Result Comment: >60 mL/min/1.73m2 EGFR, calc. for ages 18 and older using theMDRD formula (not corrected for weight), is valid for stablerenal function. Glucose mass conc 99 mg/dL Normal 74-109 [facility] Potassium molar conc 4.1 mmol/L Normal 3.5-5.1 [facility] Sodium molar conc 145 mmol/L Critically high 132-144 [facility] Urea nitrogen mass conc 11 mg/dL Normal 6-20 M [facility] CBC With Platelet and Differ entialon 05-05-2018 Basophils Auto #/vol (Bld) 0.0 10*3/uL Normal 0.0-0.2 [facility] Basophils/100 WBC Auto (Bld) 0.5 % Normal [facility] Eosinophils Auto #/vol (Bld) 0.1 10*3/uL Normal 0.0-0.7 [facility] Eosinophils/100 WBC Auto (Bld) 0.9 % Normal [facility] Erythrocyte distribution width Auto Ratio (RBC) 15.2 % Critically high 11.5-14.5 [facility] Hematocrit Auto Volume Fraction (Bld) 37.0 % Normal 37.0-47.0 [facility] Hemoglobin mass conc (Bld) 12.4 g/dL Normal 12.0-16.0 [facility] Hypochromia PRESENT Normal [facility] Lymphocytes Auto #/vol (Bld) 2.9 10*3/uL Normal 1.0-4.8 [facility] Lymphocytes/100 WBC Auto (Bld) 33.4 % Normal [facility] MCH Auto Entitic mass (RBC) 25.9 pg Low 27.0-31.3 [facility] MCHC Auto mass conc (RBC) 33.5 % Normal 33.0-37.0 [facility] MCV Auto Entitic volume (RBC) 77.4 fL Low 82.0-100.0 [facility] Monocytes Auto #/vol (Bld) 0.6 10*3/uL Normal 0.2-0.8 [facility] Monocytes/100 WBC Auto (Bld) 6.6 % Normal [facility] Neutrophils Auto #/vol (Bld) 5.0 10*3/uL Normal 1.4-6.5 [facility] Neutrophils/100 WBC Auto (Bld) 58.6 % Normal [facility] Platelets Auto #/vol (Bld) 326 10*3/uL Normal 130-400 [facility] RBC Auto #/vol (Bld) 4.78 10*6/uL Normal 4.20-5.40 [facility] WBC Auto #/vol (Bld) 8.6 10*3/uL Normal 4.5-11.0 [facility] CT LUMBAR SPINE WO CONTRASTo n 05-05-2018 CT LUMBAR SPINE WO CONTRAST COMPARISON: No prior studies available for comparison.HISTORY: Lower Back Pain TECHNIQUE: CT LUMBAR SPINE WO CONTRASTFINDINGS:The lumbar vertebral bodies heights are fairly well-preserved. Mild anterior wedging is seen at T12-L1. Mild intervertebral disc space narrowing is seen at L1-L2 and L2-L3.. Mild degenerative changes are seen in the facets. Small sclerotic foci in the pedicle at L4 is most consistent with bone island.At L2-L3 there is mild broad-based disc bulge. No significant canal stenosis is seen. No significant canal stenosis is seen at other levels. A very slight dextroscoliosis is visualized.IMPRESSION: No appreciable canal stenosis is seen. No acute fracture or dislocation is visualized. No significant degenerative changes are seen.All CT scans at this facility use dose modulation, iterative reconstruction, and/or weight based dosing when appropriate to reduce radiation dose to as low as reasonably achievable.Interpreted by:Lesia Lemon, DOSigned by:Lesia Lemon, DO05/05/18Final result Normal [facility] Sedimentation Rateon 018 Sedimentation Rate 22 mm Critically high 0-20 M [facility] UR HCG Qualitativeon 018 HCG.beta subunit ( test) Ql (U) Negative Normal Detects [facility] ED Provider Noteon 8 HIM IP Note OR Environmental Scientist Normal [facility] Cult,Urineon 04-30-2017 Cult,Urine Specimen Description .URINE, MIDSTREAM Performed at [facility] [address] [place] [address] ([phone] Special Requests NOT REPORTEDCulture NO SIGNIFICANT GROWTH Performed at [address] [address] Report Status FINAL 04/30/2017 Normal [facility] Comment on above: Performed By: #### U RC ####[address] [address] [facility] [place] [address] ED Provider Noteon 7 HIM IP Note OR Environmental Scientist Normal [facility] HCG, ,Urineon 04-29 HCG.beta subunit ( test) Ql (U) Negative Normal NEG [facility] Comment on above: Result Comment: Perf ormed at [facility] [address] [place] [address] ([phone] Performed By: #### U HCG, UA, UMICAO ####[place] [address] [place] [address] Urinalysis, Routineon 2016 Acetaminophen mass conc Negative Normal NEG [place] Comment on above: Performed By: #### U HCG, UA, UMICAO ####[place] [address] [place] [address] Bilirubin (direct) Negative Normal NEG [facility] Comment on above: Performed By: #### U HCG, UA, UMICAO ####[facility] [facility] [place] [address] Comment Normal [facility] Comment on above: Result Comment: Perf ormed at [facility] [address] [facility] [place] [address] Performed By: #### U HCG, UA, UMICAO ####[facility] [facility] [place] [address] Hemoglobin mass conc (Bld) TRACE Abnormal NEG [facility] Comment on above: Performed By: #### U HCG, UA, UMICAO ####[address] [place] [address] Nitrite,Ur Negative Normal NEG [facility] Comment on above: Performed By: #### U HCG, UA, UMICAO ####[facility] [facility] [place] [address] Turbidity HAZY Abnormal CLEAR [facility] Comment on above: Performed By: #### U HCG, UA, UMICAO ####[address] [place] [address] Urine, color YELLOW Normal YEL [facility] Comment on above: Performed By: #### U HCG, UA, UMICAO ####[facility] [facility] [place] [address] Urine, glucose presence Negative Normal NEG [place] Comment on above: Performed By: #### U HCG, UA, UMICAO ####[facility] [facility] [place] [address] Urine, leukocyte esterase presence 2+ Abnormal NEG [facility] Comment on above: Performed By: #### U HCG, UA, UMICAO ####[facility] [facility] [place] [address] Urine, pH 5.0 [pH] Normal 5.0-8.0 [facility] Comment on above: Performed By: #### U HCG, UA, UMICAO ####[facility] [facility] [address] [place] [address] Urine, protein presence Negative Normal NEG M [facility] Comment on above: Performed By: #### U HCG, UA, UMICAO ####[facility] [facility] [address] [place] [address] Urine, specific gravity 1.015 Normal 1.005-1.030 [facility] Comment on above: Performed By: #### U HCG, UA, UMICAO ####[place] [address] [facility] [address] [place] [address] Urobilinogen,Ur Normal Normal NORM [facility] Comment on above: Performed By: #### U HCG, UA, UMICAO ####[place] [id number] [facility] [place] [address] Urinalysis,Microon 7 ----- Normal [facility] Comment on above: Performed By: #### U HCG, UA, UMICAO ####[place] [id number] [facility] [place] [address] Urine WBC's 2 TO 5 Normal 0 [facility] Comment on above: Performed By: #### U HCG, UA, UMICAO ####[place] [id number] [facility] [place] [address] Urine, bacteria in sediment 2+ Abnormal NONE [facility] Comment on above: Result Comment: Perf ormed at [facility] [address] [facility] [place] [address] Performed By: #### U HCG, UA, UMICAO ####[address] [place] [address] Urine, epithelial cells in sediment 5 TO 10 Normal [facility] Comment on above: Performed By: #### U HCG, UA, UMICAO ####[facility] [place] [address] Urine, erythrocytes 0 TO 2 Normal 0-2 [facility] Comment on above: Performed By: #### U HCG, UA, UMICAO ####[facility] [place] [place] [address] Epithelial, Renal NOT REPORTED Normal 0 [facility] Comment on above: Performed By: #### U HCG, UA, UMICAO ####[facility] [facility] [address] [place] [address] Mucus Strands NOT REPORTED Normal NONE [facility] Comment on above: Performed By: #### U HCG, UA, UMICAO ####[facility] [facility] [place] [address] Other Observations NOT REPORTED Normal [facility] Comment on above: Performed By: #### U HCG, UA, UMICAO ####[facility] [facility] [place] [address] Trichomonas NOT REPORTED Normal NONE [facility] Comment on above: Performed By: #### U HCG, UA, UMICAO ####[facility] [place] [address] Urine, amorphous sediment presence in sediment NOT REPORTED Normal NONE [facility] Comment on above: Performed By: #### U HCG, UA, UMICAO ####[facility] [place] [address] Urine, casts in sediment NOT REPORTED Normal [facility] Comment on above: Performed By: #### U HCG, UA, UMICAO ####[facility] [facility] [place] [address] Urine, crystals in sediment NOT REPORTED Normal NONE [facility] Comment on above: Performed By: #### U HCG, UA, UMICAO ####[facility] [place] [address] Urine, yeast presence in sediment NOT REPORTED Normal NONE [facility] Comment on above: Performed By: #### U HCG, UA, UMICAO ####[address] [place] [address] Group A Strep DNAon 04-03-20 17 Group A Strep DNA Specimen Description .THROAT SWAB Performed at [facility] [address] [facility] [place] [address] [phone] Special Requests NOT REPORTEDDirect Exam Negative: Specimen negative for Streptococcus pyogenes by DNA amplification. Performed at [address] [address] Report Status FINAL 04/03/2017 [facility] Comment on above: Performed By: #### G ASDNA ####[address] [phone] [address] ED Provider Noteon 7 HIM IP Note OR Environmental Scientist Normal [facility] Strep Gr A Direct Agon 04-01 Rapid strep test Specimen Description .THROATSpecial Requests NOT REPORTEDDirect Exam Rapid Strep A negative. A negative Rapid Group A Strep Screen result does not rule out the possibility of Group A Streptococci in the specimen. A Group A strep DNA test will be performed. Performed at [facility] [address] [facility] [place] [address] [phone] Report Status FINAL 04/01/2017 [facility] Comment on above: Performed By: #### S GPA ####[address] [place] [address] Vital Signs Date Time Vital Sign Value Performing Clinician Facility 10-08-2024 21:17-0400 Body temperature 97.7 [degF] [facility] 10-08-2024 21:17-0400 Diastolic blood pressure 78 mm[Hg] [facility] 10-08-2024 21:17-0400 Heart rate 105 /min [facility] 10-08-2024 21:17-0400 Respiratory rate 17 /min [facility] 10-08-2024 21:17-0400 SaO2% (BldA) [Mass fraction] 100 % [facility] 10-08-2024 21:17-0400 Systolic blood pressure 131 mm[Hg] [facility] 07-30-2024 08:03-0500 Body height 165.1 cm Familia Knight DPM FACFAS Work Phone: [facility] 07-30-2024 08:03-0500 Body mass index (BMI) [Ratio] 46.59 kg/m2 Familia Knight DPM FACFAS Work Phone: [facility] 07-30-2024 08:03-0500 Body weight 127.01 kg Familia Knight DPM FACFAS Work Phone: [facility] 07-30-2024 08:03-0500 Diastolic blood pressure 77 mm[Hg] Familia Knight DPM FACFAS Work Phone: [facility] 07-30-2024 08:03-0500 Heart rate 72 /min Familia Knight DPM FACFAS Work Phone: [facility] 07-30-2024 08:03-0500 Systolic blood pressure 129 mm[Hg] Familia Knight DPM FACFAS Work Phone: [facility] 07-02-2024 07:55-0500 Body height 165.1 cm Familia Dolce DPM FACFAS Work Phone: [facility] 07-02-2024 07:55-0500 Body mass index (BMI) [Ratio] 46.59 kg/m2 Familia Dolce DPM FACFAS Work Phone: [facility] 07-02-2024 07:55-0500 Body weight 127.01 kg Familia Dolce DPM FACFAS Work Phone: [facility] 07-02-2024 07:55-0500 Diastolic blood pressure 75 mm[Hg] Familia Dolce DPM FACFAS Work Phone: [facility] 07-02-2024 07:55-0500 Heart rate 74 /min Familia Dolce DPM FACFAS Work Phone: [facility] 07-02-2024 07:55-0500 Systolic blood pressure 128 mm[Hg] Familia Dolce DPM FACFAS Work Phone: [facility] 06-02-2024 12:57-0500 Body height 165.1 cm Familia Dolce DPM FACFAS Work Phone: [facility] 06-02-2024 12:57-0500 Body mass index (BMI) [Ratio] 46.59 kg/m2 Familia Dolce DPM FACFAS Work Phone: [facility] 06-02-2024 12:57-0500 Body weight 127.01 kg Familia Dolce DPM FACFAS Work Phone: [facility] 06-02-2024 12:57-0500 Diastolic blood pressure 77 mm[Hg] Familia Dolce DPM FACFAS Work Phone: [facility] 06-02-2024 12:57-0500 Heart rate 75 /min Familia Dolce DPM FACFAS Work Phone: [facility] 06-02-2024 12:57-0500 Systolic blood pressure 125 mm[Hg] Familia Dolce DPM FACFAS Work Phone: [facility] 05-30-2024 14:22-0500 Body temperature 98.42 [degF] Astrit Hajdari [facility] 05-30-2024 14:22-0500 Diastolic blood pressure 91 mm[Hg] [facility] 05-30-2024 14:22-0500 Heart rate 94 /min [facility] 05-30-2024 14:22-0500 Respiratory rate 16 /min [facility] 05-30-2024 14:22-0500 SaO2% (BldA) [Mass fraction] 98 % [facility] 05-30-2024 14:22-0500 Systolic blood pressure 126 mm[Hg] [facility] 05-19-2024 13:53-0400 Body height 165.1 cm Familia Knight DPM FACFAS Work Phone: [facility] 05-19-2024 13:53-0400 Body mass index (BMI) [Ratio] 46.59 kg/m2 Familia Dolce DPM FACFAS Work Phone: [facility] 05-19-2024 13:53-0400 Body weight 127.01 kg Familia Dolce DPM FACFAS Work Phone: [facility] 05-19-2024 13:53-0400 Diastolic blood pressure 72 mm[Hg] Familia Mcdanielce DPM FACFAS Work Phone: [facility] 05-19-2024 13:53-0400 Heart rate 73 /min Familia Mcdanielce DPM FACFAS Work Phone: [facility] 05-19-2024 13:53-0400 Systolic blood pressure 124 mm[Hg] Familia Mcdanielce DPM FACFAS Work Phone: [facility] 05-17-2024 08:40-0400 Body temperature 98.24 [degF] [facility] 05-17-2024 08:40-0400 Diastolic blood pressure 95 mm[Hg] [facility] 05-17-2024 08:40-0400 Heart rate 79 /min Bi Kervin [facility] 05-17-2024 08:40-0400 Respiratory rate 18 /min [facility] 05-17-2024 08:40-0400 SaO2% (BldA) [Mass fraction] 95 % [facility] 05-17-2024 08:40-0400 Systolic blood pressure 153 mm[Hg] Bi [facility] 05-09-2024 14:19-0400 Body temperature 98.78 [degF] [facility] 05-09-2024 14:19-0400 Diastolic blood pressure 85 mm[Hg] Bi [facility] 05-09-2024 14:19-0400 Heart rate 94 /min Bi [facility] 05-09-2024 14:19-0400 Respiratory rate 16 /min [facility] 05-09-2024 14:19-0400 SaO2% (BldA) [Mass fraction] 100 % [facility] 05-09-2024 14:19-0400 Systolic blood pressure 131 mm[Hg] [facility] 01-12-2024 23:57-0400 Body temperature 98.42 [degF] Kaylinn Dokken [facility] 01-12-2024 23:57-0400 Diastolic blood pressure 82 mm[Hg] Kaylinn Dokken [facility] 01-12-2024 23:57-0400 Heart rate 117 /min Kaylinn Dokken [facility] 01-12-2024 23:57-0400 Respiratory rate 16 /min Aleta Oliveira [facility] 01-12-2024 23:57-0400 SaO2% (BldA) [Mass fraction] 98 % Aleta Oliveira [facility] 01-12-2024 23:57-0400 Systolic blood pressure 122 mm[Hg] Aleta Oliveira [facility] 2024 23:19-0400 Body temperature 98.06 [degF] Bi [facility] 2024 23:19-0400 Diastolic blood pressure 71 mm[Hg] Bi [facility] 2024 23:19-0400 Heart rate 114 /min [facility] 2024 23:19-0400 Respiratory rate 20 /min [facility] 2024 23:19-0400 SaO2% (BldA) [Mass fraction] 98 % Bi K[facility] 2024 23:19-0400 Systolic blood pressure 116 mm[Hg] Bi [facility] 09-23-2023 10:21-0500 Diastolic blood pressure 75 mm[Hg] [facility] 09-23-2023 10:21-0500 Heart rate 116 /min [facility] 09-23-2023 10:21-0500 Mean blood pressure 89 mm[Hg] [facility] 09-23-2023 10:21-0500 SaO2% (BldA) [Mass fraction] 94 % [facility] 09-23-2023 10:21-0500 Systolic blood pressure 116 mm[Hg] [facility] 09-23-2023 08:53-0500 Body temperature 99.5 [degF] [facility] 09-23-2023 08:53-0500 Diastolic blood pressure 76 mm[Hg] [facility] 09-23-2023 08:53-0500 Heart rate 120 /min [facility] 09-23-2023 08:53-0500 Respiratory rate 20 /min [facility] 09-23-2023 08:53-0500 SaO2% (BldA) [Mass fraction] 98 % [facility] 09-23-2023 08:53-0500 Systolic blood pressure 124 mm[Hg] [facility] 08-22-2023 22:15-0500 Body temperature 98.96 [degF] Kaylinn Dokken [facility] 08-22-2023 22:15-0500 Diastolic blood pressure 83 mm[Hg] Kaylinn Dokken [facility] 08-22-2023 22:15-0500 Heart rate 98 /min Kaylinn Dokken [facility] 08-22-2023 22:15-0500 Respiratory rate 18 /min Kaylinn Dokken [facility] 08-22-2023 22:15-0500 SaO2% (BldA) [Mass fraction] 98 % Kaylinn Dokken [facility] 08-22-2023 22:15-0500 Systolic blood pressure 132 mm[Hg] Kaylinn Dokken [facility] 07-27-2023 21:06-0500 Body temperature 99.14 [degF] Nevaehylinn Dokken [facility] 07-27-2023 21:06-0500 Diastolic blood pressure 92 mm[Hg] Nevaehylinn Dokken [facility] 07-27-2023 21:06-0500 Heart rate 105 /min Nevaehylinn Dokken [facility] 07-27-2023 21:06-0500 Respiratory rate 16 /min Nevaehylinn Dokken [facility] 07-27-2023 21:06-0500 SaO2% (BldA) [Mass fraction] 100 % Dahianainn Dokken [facility] 07-27-2023 21:06-0500 Systolic blood pressure 144 mm[Hg] Dahianainn Dokken [facility] 07-25-2023 20:22-0500 Body temperature 97.88 [degF] Kosta Raul [facility] 07-25-2023 20:22-0500 Diastolic blood pressure 74 mm[Hg] Kosta Raul [facility] 07-25-2023 20:22-0500 Heart rate 91 /min Kosta Raul [facility] 07-25-2023 20:22-0500 Respiratory rate 17 /min Kosta Raul [facility] 07-25-2023 20:22-0500 SaO2% (BldA) [Mass fraction] 99 % Kosta Raul [facility] 07-25-2023 20:22-0500 Systolic blood pressure 113 mm[Hg] Kosta Raul [facility] 07-13-2023 17:51-0500 Diastolic blood pressure 93 mm[Hg] [facility] 07-13-2023 17:51-0500 Heart rate 121 /min [facility] 07-13-2023 17:51-0500 Respiratory rate 18 /min [facility] 07-13-2023 17:51-0500 SaO2% (BldA) [Mass fraction] 99 % [facility] 07-13-2023 17:51-0500 Systolic blood pressure 124 mm[Hg] [facility] 07-13-2023 16:32-0500 Diastolic blood pressure 89 mm[Hg] [facility] 07-13-2023 16:32-0500 Heart rate 105 /min [facility] 07-13-2023 16:32-0500 Respiratory rate 17 /min [facility] 07-13-2023 16:32-0500 SaO2% (BldA) [Mass fraction] 98 % [facility] 07-13-2023 16:32-0500 Systolic blood pressure 127 mm[Hg] [facility] 07-13-2023 15:29-0500 Body temperature 98.96 [degF] [facility] 07-13-2023 15:29-0500 Diastolic blood pressure 88 mm[Hg] [facility] 07-13-2023 15:29-0500 Heart rate 125 /min [facility] 07-13-2023 15:29-0500 Respiratory rate 18 /min [facility] 07-13-2023 15:29-0500 SaO2% (BldA) [Mass fraction] 98 % [facility] 07-13-2023 15:29-0500 Systolic blood pressure 120 mm[Hg] [facility] 04-24-2023 09:45-0400 Body temperature 99.86 [degF] [facility] 04-24-2023 09:45-0400 Diastolic blood pressure 97 mm[Hg] [facility] 04-24-2023 09:45-0400 Heart rate 121 /min [facility] 04-24-2023 09:45-0400 Respiratory rate 20 /min [facility] 04-24-2023 09:45-0400 SaO2% (BldA) [Mass fraction] 96 % [facility] 04-24-2023 09:45-0400 Systolic blood pressure 135 mm[Hg] [facility] 02-27-2023 10:53-0400 Body temperature 98.24 [degF] [facility] 02-27-2023 10:53-0400 Diastolic blood pressure 87 mm[Hg] [facility] 02-27-2023 10:53-0400 Heart rate 94 /min Bi [facility] 02-27-2023 10:53-0400 Respiratory rate 16 /min [facility] 02-27-2023 10:53-0400 SaO2% (BldA) [Mass fraction] 99 % [facility] 02-27-2023 10:53-0400 Systolic blood pressure 127 mm[Hg] Bi [facility] 01-14-2023 10:31-0400 Body temperature 98.42 [degF] Blake Rivera [facility] 01-14-2023 10:31-0400 Diastolic blood pressure 80 mm[Hg] Blake Rivera [facility] 01-14-2023 10:31-0400 Heart rate 94 /min Blake Rivera [facility] 01-14-2023 10:31-0400 Respiratory rate 18 /min Blake Rivera [facility] 01-14-2023 10:31-0400 SaO2% (BldA) [Mass fraction] 96 % Blake Rivera [facility] 01-14-2023 10:31-0400 Systolic blood pressure 114 mm[Hg] Blake Rivera [facility] 01-10-2023 09:13-0400 Body height 163.8 cm Orlando Pace MD Work Phone: [facility] 01-10-2023 09:13-0400 Body mass index (BMI) [Ratio] 44.99 kg/m2 Orlando Pace MD Work Phone: [facility] 01-10-2023 09:13-0400 Body temperature 97.9 [degF] Orlando Pace MD Work Phone: [facility] 01-10-2023 09:13-0400 Body weight 120.75 kg Orlando Pace MD Work Phone: [facility] 01-10-2023 09:13-0400 Diastolic blood pressure 80 mm[Hg] Orlando Pace MD Work Phone: [facility] 01-10-2023 09:13-0400 Heart rate 68 /min Orlando Pace MD Work Phone: [facility] 01-10-2023 09:13-0400 SaO2% (BldA) [Mass fraction] 98 % Orlando Pace MD Work Phone: [facility] 01-10-2023 09:13-0400 Systolic blood pressure 130 mm[Hg] Orlando Pace MD Work Phone: [facility] 12-04-2022 19:05-0400 Body temperature 98.42 [degF] [facility] 12-04-[facility] 19:05-0400 Diastolic blood pressure 81 mm[Hg] ORLANDO [facility] 12-04-2022 19:05-0400 Heart rate 75 /min [facility] 12-04-2022 19:05-0400 Respiratory rate 18 /min [facility] 12-04-2022 19:05-0400 SaO2% (BldA) [Mass fraction] 99 % [facility] 12-04-2022 19:05-0400 Systolic blood pressure 128 mm[Hg] [facility] 12-02-2022 04:35-0400 Diastolic blood pressure 74 mm[Hg] [facility] 12-02-2022 04:35-0400 Heart rate 73 /min [facility] 12-02-2022 04:35-0400 Respiratory rate 18 /min [facility] 12-02-2022 04:35-0400 SaO2% (BldA) [Mass fraction] 99 % [facility] 12-02-2022 04:35-0400 Systolic blood pressure 113 mm[Hg] [facility] 12-02-2022 02:32-0400 Body temperature 97.52 [degF] [facility] 12-02-2022 02:32-0400 Diastolic blood pressure 80 mm[Hg] [facility] 12-02-2022 02:32-0400 Heart rate 95 /min [facility] 12-02-2022 02:32-0400 Respiratory rate 16 /min [facility] 12-02-2022 02:32-0400 SaO2% (BldA) [Mass fraction] 98 % [facility] 12-02-2022 02:32-0400 Systolic blood pressure 115 mm[Hg] [facility] 11-27-2022 23:03-0400 Hourly Rounding Kaylinn Dokken [facility] 11-27-2022 23:02-0400 Diastolic blood pressure 80 mm[Hg] Kaylinn Dokken [facility] 11-27-2022 23:02-0400 Heart rate 79 /min Kaylinn Dokken [facility] 11-27-2022 23:02-0400 Mean blood pressure 91 mm[Hg] Kaylinn Dokken [facility] 11-27-2022 23:02-0400 SaO2% (BldA) [Mass fraction] 97 % Kaylinn Dokken [facility] 11-27-2022 23:02-0400 Systolic blood pressure 114 mm[Hg] Kaylinn Dokken [facility] 11-27-2022 22:53-0400 Diastolic blood pressure 60 mm[Hg] Kaylinn Dokken [facility] 11-27-2022 22:53-0400 Heart rate 85 /min Kaylinn Dokken [facility] 11-27-2022 22:53-0400 Mean blood pressure 76 mm[Hg] Kaylinn Dokken [facility] 11-27-2022 22:53-0400 SaO2% (BldA) [Mass fraction] 97 % Kaylinn Dokken [facility] 11-27-2022 22:53-0400 Systolic blood pressure 107 mm[Hg] Kaylinn Dokken [facility] 11-27-2022 22:16-0400 Diastolic blood pressure 79 mm[Hg] Kaylinn Dokken [facility] 11-27-2022 22:16-0400 Heart rate 75 /min Kaylinn Dokken [facility] 11-27-2022 22:16-0400 Mean blood pressure 91 mm[Hg] Kaylinn Dokken [facility] 11-27-2022 22:16-0400 SaO2% (BldA) [Mass fraction] 99 % Kaylinn Dokken [facility] 11-27-2022 22:16-0400 Systolic blood pressure 114 mm[Hg] Kaylinn Dokken [facility] 11-27-2022 22:05-0400 Respiratory rate 18 /min Kaylinn Dokken [facility] 11-27-2022 21:30-0400 Respiratory rate 15 /min Kaylinn Dokken [facility] 11-27-2022 20:37-0400 Body temperature 98.06 [degF] Kaylinn Dokken [facility] 11-27-2022 20:37-0400 Heart rate 77 /min Kaylinn Dokken [facility] 11-27-2022 20:37-0400 Respiratory rate 16 /min Aleta Oliveira [facility] 11-11-2022 19:35-0400 Body temperature 97.88 [degF] [facility] 11-11-2022 19:35-0400 Diastolic blood pressure 86 mm[Hg] [facility] 11-11-2022 19:35-0400 Heart rate 80 /min [facility] 11-11-2022 19:35-0400 Respiratory rate 20 /min [facility] 11-11-2022 19:35-0400 SaO2% (BldA) [Mass fraction] 98 % [facility] 11-11-2022 19:35-0400 Systolic blood pressure 128 mm[Hg] [facility] 11-08-2022 12:00-0400 Hourly Rounding Evan Printy [facility] 11-08-2022 12:00-0400 Promise to Return Evan Printy [facility] 11-08-2022 11:00-0400 Hourly Rounding Evan Printy [facility] 11-08-2022 11:00-0400 Promise to Return Evan Printy [facility] 11-08-2022 10:00-0400 Hourly Rounding Evan Printy [facility] 11-08-2022 10:00-0400 Promise to Return Evan Printy [facility] 11-08-2022 08:00-0400 Blood Pressure Location Evan Printy [facility] 11-08-2022 08:00-0400 Body temperature 97.88 [degF] Evan Printy [facility] 11-08-2022 08:00-0400 Diastolic blood pressure 75 mm[Hg] Evan Printy [facility] 11-08-2022 08:00-0400 Heart rate 96 /min Evan Printy [facility] 11-08-2022 08:00-0400 Mean blood pressure 90 mm[Hg] Evan Printy [facility] 11-08-2022 08:00-0400 Respiratory rate 18 /min Evan Printy [facility] 11-08-2022 08:00-0400 SaO2% (BldA) [Mass fraction] 99 % Evan Printy [facility] 11-08-2022 08:00-0400 Systolic blood pressure 120 mm[Hg] Evan Printy [facility] 11-07-2022 20:45-0400 Heart rate 86 /min Evan Printy [facility] 11-07-2022 20:45-0400 SaO2% (BldA) [Mass fraction] 95 % Evan Printy [facility] 11-07-2022 20:45-0400 Body temperature 97.52 [degF] Evan Printy [facility] 11-07-2022 20:45-0400 Diastolic blood pressure 61 mm[Hg] Evan Printy [facility] 11-07-2022 20:45-0400 Mean blood pressure 70 mm[Hg] Evan Printy [facility] 11-07-2022 20:45-0400 Systolic blood pressure 90 mm[Hg] Evan Printy [facility] 11-07-2022 20:45-0400 Blood Pressure Location Evan Printy [facility] 11-07-2022 20:45-0400 Mean blood pressure 71 mm[Hg] Evan Printy [facility] 11-07-2022 20:45-0400 Respiratory rate 18 /min Evan Printy [facility] 11-07-2022 14:00-0400 Body temperature 98.6 [degF] Evan Printy [facility] 11-07-2022 14:00-0400 Diastolic blood pressure 66 mm[Hg] Evan Printy [facility] 11-07-2022 14:00-0400 Heart rate 90 /min Evan Printy [facility] 11-07-2022 14:00-0400 Mean blood pressure 81 mm[Hg] Evan Printy [facility] 11-07-2022 14:00-0400 SaO2% (BldA) [Mass fraction] 98 % Evan Printy [facility] 11-07-2022 14:00-0400 Systolic blood pressure 110 mm[Hg] Evan Printy [facility] 11-07-2022 04:10-0400 Mean blood pressure 64 mm[Hg] Evan Printy [facility] 11-07-2022 00:40-0400 Mean blood pressure 72 mm[Hg] Evan Printy [facility] 11-06-2022 18:00-0400 Body temperature 97.88 [degF] Evan Printy [facility] 11-06-2022 18:00-0400 Respiratory rate 18 /min Evan Moore [facility] 11-06-2022 16:00-0400 Body temperature 97.7 [degF] Evan Barnesy [facility] 11-06-2022 15:00-0400 Body temperature 98.96 [degF] Evan Moore [facility] 11-06-2022 13:25-0400 FIO2 99 % [facility] [employer] [facility] 11-06-2022 13:20-0400 FIO2 99 % Evan Barnesy [facility] 11-06-2022 13:15-0400 FIO2 99 % Evan Barnsey [facility] 11-06-2022 09:26-0400 Heart rate 101 /min Evan Moore [facility] 11-02-2022 20:10-0400 Hourly Rounding Alexys Delgado [facility] Comment on above: Result Comment: pt. discharges off unit ambulatory to private car; assistance offered and declined 11-02-2022 20:09-0400 Hourly Rounding Alexys Delgado [facility] Comment on above: Result Comment: discharge instructions sabiha curtis, questions answered, papers signed 11-02-2022 19:59-0400 Hourly Rounding Alexys Delgado [facility] Comment on above: Result Comment: pt. sitting in bed, with support person at bedside; pt. educated on importance of drinking fluids and staying hydrated, possible signs of SROM, and that SVE is unchanged since last office visit; pt. made aware of plan to d/c, pt. verbalizes understanding; pt. disconnected from monitors at this time and up to the bathroom to void and change 11-02-2022 19:14-0400 Blood Pressure Location Alexys Delgado [facility] 11-02-2022 19:14-0400 Diastolic blood pressure 71 mm[Hg] Alexys Clarkten [facility] 11-02-2022 19:14-0400 Heart rate 108 /min Alexys Delgado [facility] 11-02-2022 19:14-0400 Mean blood pressure 86 mm[Hg] Alexys Clarkten [facility] 11-02-2022 19:14-0400 Promise to Return Alexys Delgado [facility] 11-02-2022 19:14-0400 Respiratory rate 18 /min Alexys Delgado [facility] 11-02-2022 19:14-0400 Systolic blood pressure 117 mm[Hg] Alexys Clarkten [facility] 11-02-2022 18:30-0400 Body temperature 98.06 [degF] Alexys Clarkten [facility] 11-02-2022 18:30-0400 Diastolic blood pressure 59 mm[Hg] Alexys Delgado [facility] 11-02-2022 18:30-0400 Heart rate 98 /min Alexys Clarkten [facility] 11-02-2022 18:30-0400 Mean blood pressure 80 mm[Hg] Alexys Clarkten [facility] 11-02-2022 18:30-0400 Respiratory rate 18 /min Alexys Clarkten [facility] 11-02-2022 18:30-0400 Systolic blood pressure 121 mm[Hg] Alexys Clarkten [facility] 10-26-2022 13:30-0400 Respiratory rate 20 /min Shabbir Duranel Work Phone: [facility] 10-26-2022 13:22-0400 SaO2% (BldA) [Mass fraction] 98 % Shabbir Duranel Work Phone: [facility] 10-26-2022 11:40-0400 Body height 165.1 cm Shabbir Mi Work Phone: [facility] 10-26-2022 11:40-0400 Body weight 125.64 kg Shabbir Mi Work Phone: [facility] 10-26-2022 10:24-0400 Diastolic blood pressure 64 mm[Hg] Shabbir Duranel Work Phone: [facility] 10-26-2022 10:24-0400 Heart rate 91 /min Shabbir Duranel Work Phone: [facility] 10-26-2022 10:24-0400 Systolic blood pressure 101 mm[Hg] Shabbir Mi Work Phone: [facility] 10-25-2022 15:30-0400 Hourly Rounding Alexys Delgado [facility] Comment on above: Result Comment: discharge instructions g iven, encouraged to return for increasing pain or regular ctx 10-25-2022 15:11-0400 Diastolic blood pressure 61 mm[Hg] Alexys Delgado [facility] 10-25-2022 15:11-0400 Heart rate 100 /min Alexys William [facility] 10-25-2022 15:11-0400 Mean blood pressure 79 mm[Hg] Alexys Delgado [facility] 10-25-2022 15:11-0400 Respiratory rate 20 /min Alexys Delgado [facility] 10-25-2022 15:11-0400 Systolic blood pressure 114 mm[Hg] Alexys Delgado [facility] 10-25-2022 15:00-0400 Hourly Rounding Alexys Delgado [facility] Comment on above: Result Comment: pt holding abdomen state s discomfort at 8. abdomen palpated soft 10-25-2022 07:50-0400 Blood Pressure Location Alexys Delgado [facility] 10-25-2022 07:50-0400 Diastolic blood pressure 66 mm[Hg] Alexys Delgado [facility] 10-25-2022 07:50-0400 Heart rate 117 /min Alexys Delgado [facility] 10-25-2022 07:50-0400 Mean blood pressure 87 mm[Hg] Alexys Delgado [facility] 10-25-2022 07:50-0400 Respiratory rate 18 /min Alexys Delgado [facility] 10-25-2022 07:50-0400 Systolic blood pressure 130 mm[Hg] Alexys Delgado [facility] 10-23-2022 17:00-0400 Blood Pressure Location Evan Printy [facility] 10-23-2022 17:00-0400 Diastolic blood pressure 59 mm[Hg] Evan Printy [facility] 10-23-2022 17:00-0400 Heart rate 99 /min Evan Printy [facility] 10-23-2022 17:00-0400 Hourly Rounding Evan Printy [facility] 10-23-2022 17:00-0400 Mean blood pressure 81 mm[Hg] Evan Printy [facility] 10-23-2022 17:00-0400 Promise to Return Evan Printy [facility] 10-23-2022 17:00-0400 Respiratory rate 18 /min Evan Printy [facility] 10-23-2022 17:00-0400 SaO2% (BldA) [Mass fraction] 100 % Evan Printy [facility] 10-23-2022 17:00-0400 Systolic blood pressure 126 mm[Hg] Evan Printy [facility] 10-23-2022 16:00-0400 Hourly Rounding Evan Printy [facility] 10-23-2022 16:00-0400 Promise to Return Evan Printy [facility] 10-23-2022 15:00-0400 Body temperature 98.42 [degF] Evan Printy [facility] 10-23-2022 15:00-0400 Diastolic blood pressure 73 mm[Hg] Evan Printy [facility] 10-23-2022 15:00-0400 Heart rate 108 /min Evan Printy [facility] 10-23-2022 15:00-0400 Hourly Rounding Evan Printy [facility] 10-23-2022 15:00-0400 Mean blood pressure 88 mm[Hg] Evan Printy [facility] 10-23-2022 15:00-0400 Promise to Return Evan Printy [facility] 10-23-2022 15:00-0400 Systolic blood pressure 118 mm[Hg] Evan Printy [facility] 10-20-2022 23:29-0400 Hourly Rounding Alexys Delgado [facility] Comment on above: Result Comment: Patient discharged to pr ivate vehicle. No s/s of distress. 10-20-2022 23:21-0400 Hourly Rounding Alexys Delgado [facility] Comment on above: Result Comment: Plan of care reviewed. P atient up to the bathroom to change. 10-20-2022 23:00-0400 Hourly Rounding Alexys Delgado [facility] Comment on above: Result Comment: Patient resting in bed d rinking water. Denies any needs. Call light in reach. 10-20-2022 22:32-0400 Diastolic blood pressure 58 mm[Hg] Alexys Delgado [facility] 10-20-2022 22:32-0400 Heart rate 99 /min Alexys Delgado [facility] 10-20-2022 22:32-0400 Mean blood pressure 77 mm[Hg] Alexys Delgado [facility] 10-20-2022 22:32-0400 Respiratory rate 16 /min Alexys Delgado [facility] 10-20-2022 22:32-0400 Systolic blood pressure 116 mm[Hg] Alexys Delgado [facility] 10-20-2022 15:15-0400 Hourly Rounding Alexys Delgado [facility] Comment on above: Result Comment: reviewed d/c instruction s with pt, voices understanding. pt mother at bedside voices understanding. 10-20-2022 14:45-0400 Hourly Rounding Alexys Delgado [facility] 10-20-2022 13:55-0400 Blood Pressure Location Alexys Delgado [facility] 10-20-2022 13:55-0400 Diastolic blood pressure 55 mm[Hg] Alexys Delgado [facility] 10-20-2022 13:55-0400 Heart rate 103 /min Alexys Delgado [facility] 10-20-2022 13:55-0400 Mean blood pressure 71 mm[Hg] Alexys Delgado [facility] 10-20-2022 13:55-0400 Systolic blood pressure 102 mm[Hg] Alexys Delgado [facility] 10-20-2022 13:51-0400 Body temperature 98.24 [degF] Alexys Delgado [facility] 10-20-2022 13:51-0400 Respiratory rate 20 /min Alexys Delgado [facility] 10-20-2022 13:45-0400 Hourly Rounding Alexys Delgado [facility] 10-01-2022 08:30-0500 Hourly Rounding Evan Moore [facility] 09-09-2022 14:52-0500 Respiratory rate 22 /min Shabbir Spettel Work Phone: [facility] 09-09-2022 14:23-0500 Diastolic blood pressure 65 mm[Hg] Shabbir Spettel Work Phone: [facility] 09-09-2022 14:23-0500 Heart rate 123 /min Shabbir Spettel Work Phone: [facility] 09-09-2022 14:23-0500 Systolic blood pressure 106 mm[Hg] Shabbir Spettel Work Phone: [facility] 09-09-2022 13:48-0500 SaO2% (BldA) [Mass fraction] 99 % Shabbir Spettel Work Phone: [facility] 09-09-2022 13:47-0500 Body temperature 97.9 [degF] Shabbir Spettel Work Phone: [facility] 09-09-2022 13:44-0500 Body height 165.1 cm Shabbir Spettel Work Phone: [facility] 09-09-2022 13:44-0500 Body weight 126.09 kg Shabbir Spettel Work Phone: [facility] 04-20-2022 20:20-0400 Body height 165.1 cm Shabbir Spettel Work Phone: [facility] 04-20-2022 20:20-0400 Body temperature 98.8 [degF] Shabbir Spettel Work Phone: [facility] 04-20-2022 20:20-0400 Body weight 127 kg Shabbir Spettel Work Phone: [facility] 04-20-2022 20:20-0400 Diastolic blood pressure 81 mm[Hg] Shabbir Spettel Work Phone: [facility] 04-20-2022 20:20-0400 Heart rate 102 /min Shabbir Spettel Work Phone: [facility] 04-20-2022 20:20-0400 Respiratory rate 18 /min Shabbir Spettel Work Phone: [facility] 04-20-2022 20:20-0400 SaO2% (BldA) [Mass fraction] 98 % Shabbir Spettel Work Phone: [facility] 04-20-2022 20:20-0400 Systolic blood pressure 124 mm[Hg] Shabbir Spettel Work Phone: [facility] 04-16-2022 04:19-0400 Body temperature 98.9 [degF] Shabbir Spettel Work Phone: [facility] 04-16-2022 04:19-0400 Diastolic blood pressure 99 mm[Hg] Shabbir Duranel Work Phone: [facility] 04-16-2022 04:19-0400 Heart rate 139 /min Shabbir Spettel Work Phone: [facility] 04-16-2022 04:19-0400 Respiratory rate 22 /min Shabbir Duranel Work Phone: [facility] 04-16-2022 04:19-0400 SaO2% (BldA) [Mass fraction] 95 % Shabbir Spettel Work Phone: [facility] 04-16-2022 04:19-0400 Systolic blood pressure 133 mm[Hg] Shabbir Rodneyttel Work Phone: [facility] 04-16-2022 04:15-0400 Body height 160.02 cm Shabbir Duranel Work Phone: [facility] 04-16-2022 04:15-0400 Body weight 126.09 kg Shabbir Duranel Work Phone: [facility] 01-16-2022 13:23-0400 Body height 163.83 cm Mattie Lipscomb Work Phone: [facility] Work Phone: 01-16-2022 13:23-0400 Body mass index (BMI) [Ratio] 45.97 kg/m2 Mattie Lipscomb Work Phone: [facility] Work Phone: 01-16-2022 13:23-0400 Body surface area Derived from formula 2.24 m2 Mattie Lipscomb Work Phone: [facility] Work Phone: 01-16-2022 13:23-0400 Body temperature 97.4 [degF] Mattie Mcarthurese Work Phone: [facility] Work Phone: 01-16-2022 13:23-0400 Body weight 123.38 kg Mattie Lipscomb Work Phone: [facility] Work Phone: 01-16-2022 13:23-0400 Diastolic blood pressure 72 mm[Hg] Mattie Mcarthurese Work Phone: [facility] Work Phone: 01-16-2022 13:23-0400 Heart rate 120 /min Mattie Mcarthurese Work Phone: [facility] Work Phone: 01-16-2022 13:23-0400 Respiratory rate 16 /min Mattie Mcarthurese Work Phone: [facility] Work Phone: 01-16-2022 13:23-0400 SaO2% (BldA) [Mass fraction] 99 % Mattie Mcarthurese Work Phone: [facility] Work Phone: 01-16-2022 13:23-0400 Systolic blood pressure 108 mm[Hg] Mattie Mcarthurese Work Phone: [facility] Work Phone: 01-16-2022 13:23-0400 3 1 Mattie Mcarthurese Work Phone: [facility] Work Phone: Comment on above: GRAV PARA 01-04-2020 11:27-0400 BMI (Body Mass Index) 42.51 kg/m2 [place] 01-04-2020 11:27-0400 Body Temperature 98.71 [degF] [facility] [place] 01-04-2020 11:27-0400 Body weight 108.86 kg [facility] [place] 01-04-2020 11:27-0400 BP Diastolic 82 mm[Hg] [facility] 01-04-2020 11:27-0400 BP Systolic 121 mm[Hg] [facility] 01-04-2020 11:27-0400 Height 160 cm [facility] 01-04-2020 11:27-0400 Pulse (Heart Rate) 88 /min [facility] 01-04-2020 11:27-0400 Pulse Oximetry 96 % [facility] [place] 01-04-2020 11:27-0400 Respiratory Rate 16 /min [facility] [place] 12-30-2019 10:26-0400 BMI (Body Mass Index) 42.51 kg/m2 [facility] 12-30-2019 10:26-0400 Body Temperature 96.69 [degF] [facility] [place] 12-30-2019 10:26-0400 Body weight 108.86 kg [facility] 12-30-2019 10:26-0400 Height 160 cm [facility] 12-30-2019 10:26-0400 Pulse (Heart Rate) 87 /min [facility] 12-30-2019 10:26-0400 Pulse Oximetry 98 % [facility] [place] 12-30-2019 10:26-0400 Respiratory Rate 19 /min [facility] [place] 03-09-2019 00:05-0400 BP Diastolic 66 mm[Hg] [facility] 03-09-2019 00:05-0400 BP Systolic 100 mm[Hg] [facility] 03-09-2019 00:05-0400 Pulse (Heart Rate) 59 /min [facility] 03-09-2019 00:05-0400 Pulse Oximetry 100 % [facility] 03-09-2019 00:05-0400 Respiratory Rate 14 /min [facility] [place] 03-08-2019 20:58-0400 BMI (Body Mass Index) 40.74 kg/m2 Christina [place]- [place], [place] 03-08-2019 20:58-0400 Body Temperature 98.6 [degF] Christina Villatoro[place], [place] 03-08-2019 20:58-0400 Body weight 104.33 kg Christina [facility] [place] Encounters Encounter Date Encounter Type Care Provider Facility Start: 10-08-2024 End: 10-08-2024 Emergency department patient visit Eric Ramírez [facility] Start: 09-08-2024 End: 09-08-2024 ambulatory DOREEN HA [facility] Start: 09-08-2024 End: 09-08-2024 ambulatory Papi CRAWFORD [facility] Start: 09-08-2024 End: 09-08-2024 ambulatory Luz Marina T ILDEFONSO Facility:[facility] Start: 09-02-2024 End: 09-02-2024 ambulatory Luz Marina T ILDEFONSO [facility] Start: 09-02-2024 End: 09-02-2024 ambulatory Luz Marina T ILDEFONSO [facility] Start: 07-30-2024 End: 07-30-2024 Bamboo flowsheet Familia Knight DPM FACFAS Work Phone: [facility] Start: 07-30-2024 End: 07-30-2024 Bamboo flowsheet Familia Knight DPM FACFAS Work Phone: [facility] Start: 07-30-2024 End: 07-30-2024 Office outpatient visit 15 minutes Familia Knight DPM FACFAS Work Phone: [facility] Comment on above: Plantar fasciitis (P rimary Dx); Gastrocnemius equinus of left lower extremity; Gastrocnemius equinus of right lower extremity Start: 07-30-2024 End: 07-30-2024 ambulatory FAMILIA KNIGHT Not Available Start: 07-13-2024 End: 07-13-2024 ambulatory DOREEN HA Facility:[facility] Start: 07-13-2024 End: 07-13-2024 Patient encounter procedure DOREEN Solorzano [facility] Start: 07-08-2024 End: 08-30-2024 ambulatory DOREEN HA Facility:[facility] Start: 07-08-2024 End: 08-30-2024 Recurring DOREEN Jeanine [facility] Start: 07-02-2024 End: 07-02-2024 Bamboo flowsheet Familia D Dolce DPM FACFAS Work Phone: [facility] Start: 07-02-2024 End: 07-02-2024 Bamboo flowsheet Familia D Dolce DPM FACFAS Work Phone: [facility] Start: 07-02-2024 End: 07-02-2024 Office outpatient visit 15 minutes Familia D Dolce DPM FACFAS Work Phone: [facility] Comment on above: Plantar fasciitis (P rimary Dx); Gastrocnemius equinus of left lower extremity; Gastrocnemius equinus of right lower extremity Start: 07-02-2024 End: 07-02-2024 ambulatory FAMILIA D DOLCE Not Available Start: 06-02-2024 End: 06-02-2024 Office outpatient visit 15 minutes Familia D Dolce DPM FACFAS Work Phone: [facility] Comment on above: Gastrocnemius equinu s of right lower extremity (Primary Dx); Plantar fasciitis; Gastrocnemius equinus of left lower extremity; Calcaneal spur, left foot; Calcaneal spur of foot, right Start: 06-02-2024 End: 06-02-2024 ambulatory FAMILIA D DOLCE Not Available Start: 05-31-2024 End: 05-31-2024 ambulatory DOREEN HA Facility:[facility] Start: 05-31-2024 End: 05-31-2024 Patient encounter procedure DOREEN J [facility] Start: 05-30-2024 End: 05-30-2024 Emergency department patient visit Ashley Faustin [facility] Start: 05-19-2024 End: 05-19-2024 Bamboo flowsheet Familia D Dolce DPM FACFAS Work Phone: [facility] Start: 05-19-2024 End: 05-19-2024 Bamboo flowsheet Familia D Dolce DPM FACFAS Work Phone: [facility] Start: 05-19-2024 End: 05-19-2024 Office outpatient new 30 minutes Familia D Dolce DPM FACFAS Work Phone: [facility] Comment on above: Calcaneal spur of fo ot, right (Primary Dx); Plantar fasciitis; Calcaneal spur, left foot; Gastrocnemius equinus of left lower extremity; Gastrocnemius equinus of right lower extremity Start: 05-19-2024 End: 05-19-2024 ambulatory FAMILIA D DOLCE Not Available Start: 05-17-2024 End: 05-17-2024 Emergency department patient visit Bi Galeana [facility] Start: 05-09-2024 End: 05-09-2024 Emergency department patient visit Bi Galeana [facility] Start: 01-12-2024 End: 01-13-2024 Emergency department patient visit Minervatacos Rodriguez Roxanne [facility] Start: 2024 End: 01-07-2024 Emergency department patient visit Bi Galeana [facility] Start: 12-23-2023 End: 12-23-2023 ambulatory DOREEN GARRETT Not Available Start: 09-23-2023 End: 09-23-2023 Emergency department patient visit Ashley Faustin [facility] Start: 08-22-2023 End: 08-22-2023 Emergency department patient visit Aleta Oliveira [facility] Start: 07-27-2023 End: 07-27-2023 Emergency department patient visit Aleta Oliveira [facility] Start: 07-25-2023 End: 07-25-2023 Emergency department patient visit Kosta Carter [facility] Start: 07-13-2023 End: 07-13-2023 Emergency department patient visit Ashley Faustin [facility] Start: 06-13-2023 End: 06-13-2023 Emergency department patient visit Bi Galeana Facility:[facility] Start: 05-15-2023 End: 05-15-2023 ambulatory Papi ADELANTO Facility:[facility] Start: 04-24-2023 End: 04-24-2023 Emergency department patient visit Ashley Faustin [facility] Start: 03-26-2023 End: 03-26-2023 ambulatory JEANINE TORRE Facility:[facility] Start: 02-27-2023 End: 02-27-2023 Emergency department patient visit Bi Galeana [facility] Start: 01-14-2023 End: 01-14-2023 Emergency department patient visit Blake Rivera [facility] Start: 01-10-2023 End: 01-10-2023 Office outpatient visit 40 minutes Orlando Pace MD Work Phone: [facility] Comment on above: Bipolar and related disorder (CMS/HCC) (Primary Dx); Schizophrenia, unspecified type (CMS/HCC); Fibromyalgia; Anxiety; Class 3 severe obesity due to excess calories with serious comorbidity and body mass index (BMI) of 40.0 to 44.9 in adult (CMS/HCC) Start: 12-04-2022 End: 12-04-2022 Emergency department patient visit ORLANDO PACE [facility] Start: 12-02-2022 End: 12-02-2022 Emergency department patient visit Eric Walt Ramírez [facility] Start: 11-27-2022 End: 11-27-2022 Emergency department patient visit Aleta Oliveira [facility] Start: 11-11-2022 End: 11-11-2022 Emergency department patient visit Ashley Hinsonchase [facility] Start: 11-06-2022 End: 11-08-2022 Evaluation and management of inpatient Evan Moore [facility] Start: 11-02-2022 End: 11-02-2022 OB Triage Alexys Delgado [facility] Start: 10-26-2022 End: 10-26-2022 ambulatory Evan Camerony Facility:[facility] Start: 10-26-2022 End: 10-26-2022 Evaluation and management of inpatient Shabbir Mi Work Phone: [facility] Work Phone: Start: 10-26-2022 End: 10-26-2022 Evaluation and management of inpatient Shabbir Mi Work Phone: [facility] Work Phone: Start: 10-26-2022 End: 10-26-2022 observation encounter Shabbir Mi Work Phone: [facility] Work Phone: Start: 10-25-2022 End: 10-25-2022 OB Triage Alexys Delgado [facility] Start: 10-25-2022 End: 10-25-2022 Patient encounter procedure Alexys Delgado [facility] Start: 10-23-2022 End: 10-23-2022 OB Triage Evan Jeanine Barneslizbeth [facility] Start: 10-20-2022 End: 10-20-2022 OB Triage Alexys Delgado [facility] Start: 10-20-2022 End: 10-20-2022 OB Triage Alexys Delgado [facility] Start: 10-17-2022 End: 10-17-2022 Patient encounter procedure Evan Solorzano Printy [facility] Start: 10-15-2022 End: 10-15-2022 Patient encounter procedure Evan J Printy [facility] Start: 10-11-2022 End: 10-11-2022 Patient encounter procedure Evan J Printy [facility] Start: 10-08-2022 End: 10-08-2022 Patient encounter procedure Evan J Printy [facility] Start: 10-03-2022 End: 10-03-2022 Patient encounter procedure Evan Barnesy [facility] Start: 10-01-2022 End: 10-01-2022 Patient encounter procedure Evan Barnesy [facility] Start: 09-27-2022 End: 09-27-2022 Patient encounter procedure Evan Barnesy [facility] Start: 09-09-2022 End: 09-09-2022 ambulatory Sanaz Mathur Facility:[facility] Start: 09-09-2022 End: 09-09-2022 Patient encounter procedure Shabbir Mi Work Phone: [facility] Labor - O/P Start: 09-03-[address] Orlando solorzano Ksenic Facility:[id number] Start: 08-16-2022 End: 08-16-2022 ambulatory Evan Moore Facility:[facility] Start: 08-16-2022 End: 08-16-2022 ambulatory Shabbir Mi Work Phone: [facility] Work Phone: Start: 08-16-2022 End: 08-16-2022 Patient encounter procedure Shabbir Mi Work Phone: [facility] [place] Work Phone: Start: 08-09-2022 End: 08-09-2022 ambulatory Evan Moore Facility:[facility] Start: 08-09-2022 End: 08-09-2022 ambulatory Shabbir Mi Work Phone: [facility] Work Phone: Start: 08-09-2022 End: 08-09-2022 Patient encounter procedure Shabbir Mi Work Phone: [facility] [place] Work Phone: Start: 04-20-2022 End: 04-20-2022 Emergency department patient visit Gary Candelario Facility:[facility] Start: 04-20-2022 End: 04-20-2022 Emergency department patient visit Shabbir Hiwot Work Phone: [facility] Start: 04-18-[address] Mattie Lipscomb Facility:[id number] Start: 04-18-2022 End: 04-18-2022 Patient encounter procedure Doreen GARRETT [facility] Start: 04-16-2022 End: 04-16-2022 Emergency department patient visit Shabbir Mi Facility:[facility] Start: 04-16-2022 End: 04-16-2022 Emergency department patient visit Shabbir Rodneyinocenciorommel Work Phone: [facility] Start: 03-25-2022 End: 03-25-2022 Patient encounter procedure Doreen GERRY [facility] Start: 03-18-[address] Mattie Lipscomb Facility:[id number] Start: 03-15-2022 AUDIT Mattie evans Work Phone: [facility] Work Phone: Start: 02-08-2022 Chart Update Mattie evans Work Phone: [facility] Work Phone: Start: 02-07-[address] Mattie Lipscomb Facility:[id number] Start: 01-18-2022 Chart Update Mattie evans Work Phone: [facility] Work Phone: Start: 01-16-2022 Initial preventive medicine new pt age 18-39yrs Mattie Lipscomb Work Phone: [facility] Work Phone: Start: 01-16-[address] Mattie Lipscomb Facility:[id number] Start: 01-02-2022 ambulatory Referral Self Facility: [id number] Start: 12-10-2021 End: 12-10-2021 Emergency department patient visit MIKO CROWDER [facility] Start: 12-20-2020 End: 12-20-2020 ambulatory GRACIA WHITNEY Facility:H1 Start: 01-04-2020 End: 01-04-2020 Emergency department patient visit [facility] ED Comment on above: Trichomonas vaginiti s (Primary Dx); Blister (nonthermal) of vagina and vulva, initial encounter; Acute cystitis without hematuria Start: 12-30-2019 End: 12-30-2019 Emergency department patient visit [facility] ED Comment on above: Acute cystitis witho ut hematuria (Primary Dx); Skin yeast infection Start: 03-08-2019 End: 03-09-2019 Emergency department patient visit [facility] ED Comment on above: Constipation, unspec ified constipation type (Primary Dx); Lower abdominal pain; Nausea; Dysuria; Chronic bilateral low back pain with bilateral sciatica Start: 05-05-2018 End: 05-05-2018 Emergency department patient visit MIKO CARLOS [facility] Start: 07-28-2017 End: 07-28-2017 Emergency department patient visit HERMINIORUBEN WHITEHEAD [facility] Start: 04-29-2017 End: 04-29-2017 Emergency department patient visit [facility] Start: 04-01-2017 End: 04-02-2017 Emergency department patient visit [facility] Encounter for gynecological examination (general) (routine) without abnormal findings Mattie Lipscomb Work Phone: [facility] Work Phone: Comment on above: 12/2021-radiation therapy technologist per pt; Procedures Date Procedure Procedure Detail Performing Clinician Start: 10-26-2022 Antibody screen Gary Candelario Comment on above: Result Comment: PERF ORMED BY: [facility] [place] [address] PATHOLOGIST EDUCATION PROGRAM ASSOCIATE ALIX MCLEOD M.D. Start: 10-26-2022 Urine culture Shabbir Mi Work Phone: Start: 09-09-2022 Urine culture Shabbir Mi Work Phone: Start: 02-07-2022 Echocardiography Roney Lipscomb Work Phone: Start: 01-16-2022 Lipid 1996 panel - S aye or Plasma Orlando Pace MD Work Phone: Start: 12-29-2021 Microscopic observat ion [Identifier] in Cervix by Cyto stain Orlando Pace MD Work Phone: Start: 01-04-2020 Iadna trichomonas va [facility]inal[facility] amplified probe tech Beverly Moise Work Phone: Start: 01-04-2020 Smr prim src wet delon nt nfct agt Beverly Moise Work Phone: Start: 01-04-2020 Urinalysis microscopic only Beverly Moise Work Phone: Start: 01-04-2020 Urnls dip stick/tabl et rgnt auto w/o microscopy Beverly Moise Work Phone: Start: 12-30-2019 Urine test visual color cmprsn meths Alla Ramirez Work Phone: Start: 12-30-2019 Urinalysis microscopic only Alla Ramirez Work Phone: Start: 12-30-2019 Urnls dip stick/tabl et rgnt auto w/o microscopy Alla Ramirez Work Phone: Start: 03-09-2019 Drug screen, qualitate/multi Saroj Morgan Start: 03-08-2019 Creatinine other source Saroj Morgan Start: 03-08-2019 Assay of lactate Phil Morgan Start: 03-08-2019 Blood count complete auto&auto difrntl wbc Saroj Morgan Start: 03-08-2019 Comprehensive metabo lic panel Saroj Morgan Start: 03-08-2019 Blood occult peroxid ase actv qual feces 1-3 spec Saroj Morgan Start: 03-08-2019 Urinalysis microscopic only Saroj Morgan Start: 03-08-2019 Urnls dip stick/tabl et rgnt auto w/o microscopy Saroj Morgan Start: 03-08-2019 Urine test visual color cmprsn meths Saroj Morgan Start: 05-05-2018 Ct lumbar spine w/o contrast material MIKO CARLOS Start: 05-05-2018 Basic metabolic pane l calcium total MIKO CARLOS Start: 05-05-2018 Blood count complete auto&auto difrntl wbc MIKO CARLOS Start: 05-05-2018 SEDIMENTATION RATE ALIZE D BREANNA Start: 05-05-2018 Urine test visual color cmprsn meths MIKO CARLOS Start: 04-29-2017 URINE CULTURE YURI Pascual DALLIN Start: 04-29-2017 Microscopic urinalysis YURI CEDRICK Start: 04-29-2017 , URINE THERESA PHILIP Start: 04-29-2017 Urinalysis YURI MARTINEZ LAVELLE Start: 04-01-2017 STREP A DNA PROBE, AMPLIFICATION YURI PHILIP Start: 04-01-2017 STREP SCREEN GROUP A THROAT YURI PHILIP No history of surgery Roney Lipscomb Work Phone: None (qualifier value) Obdulia GARRETT Streptococcus pyogen es antigen assay Shabbir Mi Work Phone: Plan of Treatment Date Care Activity Detail Author Start: 01-07-2048 Zoster Vaccines (1 o f 2) Zoster Vaccines (1 of 2) [facility] Start: 11-07-2032 DTaP/Tdap/Td Vaccine s (11 - Td or Tdap) DTaP/Tdap/Td Vaccines (11 - Td or Tdap) [facility] Start: 01-16-2027 Lipid panel Lipid Panel [facility] Start: 12-29-2024 Screening for malign ant neoplasm of cervix [facility] Start: 12-28-2024 End: 12-28-2024 Patient encounter procedure 12/28/2024 1:00 PM EDT Office Visit [facility] [address] [phone] Doreen Garrett NP [address] [place] [address] [facility] Start: 07-30-2024 End: 07-30-2024 Patient encounter procedure 07/30/2024 8:00 AM EST Office Visit [facility] [address] [place] [phone] Familia Knight, DPM FACFAS [address] [place] [address] Arrived [facility] Comment on above: Arrived Start: 07-02-2024 End: 07-02-2024 Clinical Support 07/02/2024 7:50 AM EST Clinical Support [facility] [address] [place] [phone] Familia Knight, DPM FACFAS [address] [place] [address] Arrived [facility] Comment on above: Arrived Start: 06-02-2024 End: 06-02-2024 Clinical Support 06/02/2024 1:50 PM EST Clinical Support [facility] [address] [place] [phone] Familia Knight, DPM FACFAS [address] [place] [address] [facility] Start: 05-19-2024 End: 05-19-2024 Patient encounter procedure 05/19/2024 1:50 PM EDT Office Visit [facility] [address] [place] [phone] Familia Knight, DPM [facility]FAS [facility] [place] [address] Arrived [facility] Comment on above: Arrived Start: 03-28-2024 Influenza vaccination Influenza Vacc ine (#1) [facility] Start: 04-14-2023 End: 04-14-2023 Patient encounter procedure 04/14/2023 9:30 AM EDT Office Visit [facility] [address] [phone] Orlando Pace MD [address] [address] [facility] Start: 03-28-2023 Influenza vaccination Influenz a Vaccine (Season Ended) [facility] Start: 10-26-2022 Bacteria identified in Urine by Culture Urine Culture [facility] Start: 10-26-2022 [facility] Start: 10-26-2022 [facility] Start: 10-26-2022 Hospital admission [facility] Start: 09-09-2022 [facility] Start: 09-09-2022 Hospital admission [facility] Start: 03-18-2022 EPV, Provider: Janessa Bennett, Status: Pen, Time: 9:30 AM EPV, Provider: Janessa Bennett, Status: Pen, Time: 9:30 AM [facility] Work Phone: Start: 02-12-2022 NURSEVST, Provider: SUPERVISOR DRILLING [employer] SHOOTING ANTHONY VÁZQUEZ, Status: Pen, Time: 1:15 PM NURSEVST, Provider: SUPERVISOR DRILLING AND SHOOTING ANTHONY VÁZQUEZ, Status: Pen, Time: 1:15 PM [facility] Work Phone: Start: 02-07-2022 ECHO, Provider: SHAUNA FLYNN,MG CARD, Status: Pen, Time: 8:00 AM ECHO, Provider: MG LAMAR CARD, Status: Pen, Time: 8:00 AM [facility] Work Phone: Start: 03-28-2020 Influenza vaccination Flu vacc ine (Season Ended) [place], [place] Start: 03-28-2019 Influenza vaccination Flu vaccine (# 1) [place] Start: 2019 Cervical cancer screen Cervical canc er screen [place] Start: 2019 Screening for malign ant neoplasm of cervix [facility] Start: 2017 DTaP/Tdap/Td vaccine (1 - Tdap) DTaP/Tdap/Td vaccine (1 - Tdap) [place] Start: 04-06-2016 Chlamydia screen Chlamydia screen [place] Start: 04-06-2016 Screening for Chlamy lavon trachomatis Chlamydia [place] Start: 01-07-2016 Hepatitis C screening Hepatitis C Sc [facility] Start: 2013 [facility] [place] [place] Start: 2013 [facility] screening [facility] [place] Start: 2013 HPV vaccine (1 - Fem artie 3-dose series) HPV vaccine (1 - Female 3-dose series) [place] Start: 2011 Varicella Vaccine (1 of 2 - 13+ 2-dose series) Varicella Vaccine (1 of 2 - 13+ 2-dose series) [place] Start: 2009 HPV vaccine (1 - 2-d ose series) HPV vaccine (1 - 2-dose series) [place] Start: 1999 Varicella vaccine (1 of 2 - 2-dose childhood series) Varicella vaccine (1 of 2 - 2-dose childhood series) [place] Start: 1998 COVID-19 Vaccine (#1) COVID-19 Vacci ne (#1) [facility] Start: 1998 HIV screening HIV Screening [facility] Start: 1998 [facility] End: 03-08-2019 Bacteria identified Cx Nom (U) Urine Culture Microbiology STAT Once for 1 Occurrences starting 03/08/2019 until 03/08/2019 [place] Comment on above: Once for 1 Occurrenc es starting 03/08/2019 until 03/08/2019 End: 01-04-2020 C.trachomatis N.gonorrhoeae DNA, Urine C.trachomatis N.gonorrhoeae DNA, Urine Microbiology Routine One Time for 1 Occurrences starting 01/04/2020 until 01/04/2020 [place] Comment on above: One Time for 1 Occur rences starting 01/04/2020 until 01/04/2020 End: 03-08-2019 CT ABDOMEN PELVIS W IV CONTRAST Additional Contrast? None CT ABDOMEN PELVIS W IV CONTRAST Additional Contrast? None Imaging STAT Once for 1 Occurrences starting 03/08/2019 until 03/08/2019 [place] Comment on above: Once for 1 Occurrenc es starting 03/08/2019 until 03/08/2019 CT ABDOMEN PELVIS W IV CONTRAST Additional Contrast? None CT ABDOMEN PELVIS W IV CONTRAST Additional Contrast? None Imaging STAT 03/08/2019 11:16 PM EDT [place] End: 12-30-2019 Culture, Urine Culture, Urine Microbiology STAT Once for 1 Occurrences starting 12/30/2019 until 12/30/2019 [place] Comment on above: Once for 1 Occurrenc es starting 12/30/2019 until 12/30/2019 Culture, Urine [place] End: 01-04-2020 Culture, Urine Culture, Urine Microbiology STAT Once for 1 Occurrences starting 01/04/2020 until 01/04/2020 [place] Comment on above: Once for 1 Occurrenc es starting 01/04/2020 until 01/04/2020 End: 01-04-2020 HERPES SIMPLEX VIRUS (HSV) I/II ANTIBODIES IGG & IGM W/ REFLEX HERPES SIMPLEX VIRUS (HSV) I/II ANTIBODIES IGG & IGM W/ REFLEX Lab Routine One Time for 1 Occurrences starting 01/04/2020 until 01/04/2020 [place] Comment on above: One Time for 1 Occur rences starting 01/04/2020 until 01/04/2020 HERPES SIMPLEX VIRUS (HSV) I/II ANTIBODIES IGG & IGM W/ REFLEX HERPES SIMPLEX VIRUS (HSV) I/II ANTIBODIES IGG & IGM W/ REFLEX Lab STAT 01/04/2020 12:00 PM EDT [place] Iadna trichomonas vaginalis amplified probe tech TRICHOMONAS VAGINALIS RNA, QUAL TMA, PAP VIA Microbiology STAT 01/04/2020 12:45 PM EDT [place] Patient Education [facility] Work Phone: Patient referral [facility] Work Phone: End: 01-04-2020 POC UR-QUAL POC UR-QUAL Point of Care Testing Routine One Time for 1 Occurrences starting 01/04/2020 until 01/04/2020 [place] Comment on above: One Time for 1 Occur rences starting 01/04/2020 until 01/04/2020 POC Urine Qual POC Urine Qual Point of Care Testing STAT 03/08/2019 [place] Immunizations Immunization Date Immunization Notes Care Provider Fa [facility] 09-08-2024 influenza, seasonal, injectable; Translations: [Fluzone TIV PF ] Eric Ramírez [facility] Comment on above: Reason for Medicatio n: Prophylaxis 11-07-2022 tetanus toxoid, redu david diphtheria toxoid, and acellular pertussis vaccine, adsorbed Evan Moore [facility] Comment on above: Reason for Medicatio n: Other (see comment) 04-07-2021 tetanus toxoid, redu david diphtheria toxoid, and acellular pertussis vaccine, adsorbed Shabbir Mi Work Phone: [facility] 01-09-2021 tetanus toxoid, redu david diphtheria toxoid, and acellular pertussis vaccine, adsorbed Doreen GARRETT [facility] Comment on above: Early/Late Reason: E elmer/Late Reason: Nursing Judgment 11-08-2016 tetanus toxoid, redu david diphtheria toxoid, and acellular pertussis vaccine, adsorbed Doreen GARRETT [facility] Comment on above: Reason for Medicatio n: Other (see comment) 07-13-2013 hepatitis A vaccine, pediatric/adolescent dosage, 2 dose schedule Orlando Pace MD Work Phone: [facility] Work Phone: 07-13-2013 human papilloma viru s vaccine, quadrivalent Orlando Pace MD Work Phone: [facility] Work Phone: 03-02-2013 human papilloma viru s vaccine, quadrivalent Orlando Pace MD Work Phone: [facility] Work Phone: 12-15-2012 hepatitis A vaccine, pediatric/adolescent dosage, 2 dose schedule Orlando Pace MD Work Phone: [facility] Work Phone: 12-15-2012 human papilloma viru s vaccine, quadrivalent Orlando Pace MD Work Phone: [facility] Work Phone: 05-05-2012 varicella virus vaccine Harrison Pace MD Work Phone: [facility] Work Phone: 02-21-2010 meningococcal oligosaccharide (groups A, C, Y and W-135) diphtheria toxoid conjugate vaccine (MCV4O) Orlando Pace MD Work Phone: [facility] Work Phone: 02-21-2010 tetanus toxoid, redu david diphtheria toxoid, and acellular pertussis vaccine, adsorbed Orlando Pace MD Work Phone: [facility] Work Phone: 01-14-2003 diphtheria, tetanus toxoids and acellular pertussis vaccine, unspecified formulation Orlando Pace MD Work Phone: [facility] Work Phone: 01-14-2003 measles, mumps and rubella virus vaccine Orlando Pace MD Work Phone: [facility] Work Phone: 01-14-2003 poliovirus vaccine, inactivated Orlando Pace MD Work Phone: [facility] Work Phone: 05-07-2001 diphtheria, tetanus toxoids and acellular pertussis vaccine, unspecified formulation Orlando Pace MD Work Phone: [facility] Work Phone: 02-22-1999 diphtheria, tetanus toxoids and acellular pertussis vaccine, unspecified formulation Orlando Pace MD Work Phone: [facility] Work Phone: 02-22-1999 haemophilus influenz ae type b vaccine, conjugate unspecified formulation Orlando Pace MD Work Phone: [facility] Work Phone: 02-22-1999 hepatitis B vaccine, pediatric or pediatric/adolescent dosage Orlando Pace MD Work Phone: [facility] Work Phone: 02-22-1999 measles, mumps and rubella virus vaccine Orlando Pace MD Work Phone: [facility] Work Phone: 02-22-1999 poliovirus vaccine, inactivated Orlando Pace MD Work Phone: [facility] Work Phone: 02-22-1999 varicella virus vaccine Harrison Pace MD Work Phone: [facility] Work Phone: 1998 diphtheria, tetanus toxoids and acellular pertussis vaccine, unspecified formulation Orlando Pace MD Work Phone: [facility] Work Phone: 1998 haemophilus influenz ae type b vaccine, conjugate unspecified formulation Orlando Pace MD Work Phone: [facility] Work Phone: 1998 poliovirus vaccine, inactivated Orlando Pace MD Work Phone: [facility] Work Phone: 1998 diphtheria, tetanus toxoids and acellular pertussis vaccine, unspecified formulation Orlando Pace MD Work Phone: [facility] Work Phone: 1998 haemophilus influenz ae type b vaccine, conjugate unspecified formulation Orlando Pace MD Work Phone: [facility] Work Phone: 1998 hepatitis B vaccine, pediatric or pediatric/adolescent dosage Orlando Pace MD Work Phone: [facility] Work Phone: 1998 trivalent poliovirus vaccine, live, oral Orlando Pace MD Work Phone: [facility] Work Phone: 1998 hepatitis B vaccine, pediatric or pediatric/adolescent dosage Orlando Pace MD Work Phone: [facility] Work Phone: NEGATED: Highlighted row has not occurred!06-27-2021 influenza virus vaccine, unspecified formulation Doreen GARRETT [facility] NEGATED: Highlighted row has not occurred!06-27-2021 SARS-CoV-2 (COVID-19) Ad26 vaccine, recombinant Doreen GARRETT [facility] NEGATED: Highlighted row has not occurred!03-24-2019 influenza virus vaccine, unspecified formulation Doreen GARRETT [facility] Payers Date Payer Category Payer Self-pay [id number] 2016 Private Health Insurance [employer] [id number] 2016 Unknown 2016 Unknown [id number] 2014 Unknown [employer] [place] [employer] xxxxxxxxxxx 2014-Present [phone] CLAIMS DEPARTMENT [address] [place] [address] xxxxxxxxxxx [id number] 1998 Unknown [id number] 2.16840.1.752395.3.579.2. 185 1998 Unknown [id number] 2.16840.1.967851.3.579.2. 182 1998 Unknown [id number] 2.16840.1.637916.3.579.2. 356 1998 Unknown [id number] 2.16840.1.475540.3.579.2. 356 1998 Unknown [id number] 2.16840.1.480583.3.579.2. 356 1998 Unknown [id number] 2.16840.1.638558.3.579.2. 356 1998 Unknown [id number] 2.16840.1.922345.3.579.2. 356 1998 Unknown [id number] 2.16840.1.715597.3.579.2. 356 1998 Unknown [id number] 2.16.840.1.287297.3.579.2. 1998 Unknown [id number] 2.16.840.1.872577.3.579.2. 1998 Unknown [id number] 2.16.840.1.698609.3.579.2. 1998 Unknown [id number] 2.16.840.1.693442.3.579.2. 1998 Unknown [id number] 2.16.840.1.733743.3.579.2. 1998 Unknown [id number] 2.16.840.1.421628.3.579.2. 1998 Unknown [id number] 2.16.840.1.685112.3.579.2 1998 Unknown [id number] 2.16.840.1.465759.3.579.2. 1998 Unknown [id number] 2.16.840.1.383613.3.579.2 1998 Unknown [id number] 2.16.840.1.958440.3.579.2. 1998 Unknown [id number] 2.16.840.1.110551.3.579.2. 1998 Unknown [id number] 2.16.840.1.269580.3.579.2. 1998 Unknown [id number] 2.16.840.1.250635.3.579.2. 1998 Unknown [id number] 2.16.840.1.484536.3.579.2. 1998 Unknown [id number] 2.16.840.1.525849.3.579.2. 1998 Unknown [id number] 2.16.840.1.455098.3.579.2. 72 1998 Unknown [id number] 2.16.840.1.895388.3.579.2. 1998 Unknown [id number] 2.16.840.1.175202.3.579.2. 1998 Unknown [id number] 2.16.840.1.416764.3.579.2. 1998 Unknown [id number] 2.16.840.1.152938.3.579.2. 1258 1998 Unknown [id number] 2.16.840.1.359189.3.579.2. 1258 1998 Unknown [id number] 2.16.840.1.596985.3.579.2. 1258 1998 Unknown [id number] 2.16.840.1.047938.3.579.2. 1258 1998 Unknown [id number] 2.16.840.1.212144.3.579.2. 1258 1998 Unknown [id number] 2.16.840.1.451269.3.579.2. 1998 Unknown [id number] 2.16.840.1.585517.3.579.2. 1998 Unknown [id number] 2.16.840.1.764563.3.579.2. 1998 Unknown [id number] 2.16.840.1.959527.3.579.2. 1998 Unknown [id number] 2.16.840.1.348376.3.579.2. 1998 Unknown [id number] 2.16.840.1.221745.3.579.2. 1998 Unknown [id number] 2.16.840.1.565181.3.579.2. 1998 Unknown [id number] 2.16.840.1.761645.3.579.2. 727 1975 Unknown [id number] 2.16.840.1.593741.3.579.2. 593 1959 Unknown [id number] Unknown [id number] 2.16.840.1.744249.3.579.2. 531 Unknown [id number] 2.16.840.1.337669.3.579.2. 531 Unknown [id number] 2.16.840.1.740083.3.579.2. 531 Unknown [id number] 2.16.840.1.608503.3.579.2. 531 Unknown [id number] 2.16.840.1.730212.3.579.2. 531 Unknown [id number] 2.16.840.1.941062.3.579.2. 531 Social History Date Type Detail Facility Start: 12-30-2019 End: 01-14-2023 Tobacco smoking status NHIS Former sm[place] History of tobacco use Cigarette Sm[place] Start: 12-30-2019 End: 12-18-2022 Cigarettes smoked current (pack per day) - Reported [facility] Start: 12-30-2019 End: 01-04-2020 Alcohol intake Current non-drinker of alcohol (finding) [place] Start: 1998 Sex Assigned At Not on file M [place] Exposure to SARS-CoV-2 (event) Unable to assess [place] Start: 03-08-2019 End: 12-18-2022 Alcohol intake No [place] Tobacco smoking status Never [facility] Start: 04-16-2022 End: 12-11-2022 Tobacco smoking status NHIS Never smoked tobacco (finding) [facility] Start: 1998 Sex Assigned At Female F [facility] Start: 12-11-2022 End: 01-10-2023 Tobacco use and exposure Smokeless tobacco non-user [facility] Work Phone: Start: 01-10-2023 Alcohol intake Lifetime non-d ildefonso (finding) [facility] Work Phone: Start: 12-31-2022 End: 01-10-2023 Exposure to SARS-CoV-2 (event) Not sure [facility] Start: 12-23-2023 End: 07-30-2024 Alcoholic beverage intake Ex-drinker (finding) [facility] How often to you hav e a drink containing alcohol? Never [facility] NEGATED: Highlighted rowStart: NINF History of tobacco use Passive smoker [facility] Work Phone: Goals Date Patient Goal Desired Activity /State Functional Status Date Assessment Result Facility 10-08-2024 Functional Status N/A [facility] 05-30-2024 Functional Status N/A [facility] 05-17-2024 Functional Status N/A [facility] 05-09-2024 Functional Status N/A [facility] 01-12-2024 Functional Status N/A [facility] 2024 Functional Status N/A [facility] 09-23-2023 Functional Status N/A [facility] 08-22-2023 Functional Status N/A [facility] 07-27-2023 Functional Status N/A [facility] 07-25-2023 Functional Status N/A [facility] 07-13-2023 Functional Status N/A [facility] 04-24-2023 Functional Status N/A [facility] 02-27-2023 Functional Status N/A [facility] 01-14-2023 Functional Status N/A [facility] 12-04-2022 Functional Status N/A [facility] 12-02-2022 Functional Status N/A [facility] 11-27-2022 Functional Status N/A [facility] 11-11-2022 Functional Status N/A [facility] 11-06-2022 Functional Status No [facility] 11-02-2022 Functional Status N/A [facility] 10-25-2022 Functional Status N/A [facility] 10-23-2022 Functional Status N/A [facility] 10-20-2022 Functional Status N/A [facility] 10-20-2022 Functional Status N/A [facility] Clinical Notes 03-25-2022 to 10-09-2024 Note Date & Type Note Facility 10-09-2024 Hospital Discharg e instructions Patient Education 10/08/2024 23:06:58 Wrist Sprain, Adult Wrist Sprain, Adult A wrist sprain is a stretch or tear in the strong tissues that connect the wrist bones to each other. These strong tissues are called ligaments. There are three types of wrist sprains: Grade 1. The ligament is stretched more than normal. There may be a minor amount of wrist pain. Grade 2. The ligament is partially torn. You may be able to move your wrist, but not very much. There may be a moderate amount of wrist pain. Grade 3. The ligament or ligaments are completely torn. You may find it difficult to move your wrist even a little. There may be a significant amount of wrist pain. What are the causes? This condition may be caused by using the wrist too much during sports, exercise, or work. It can also happen due to a fall or during an accident. What increases the risk? You are more likely to develop this condition if: You had a previous wrist or arm injury. You have poor wrist strength and flexibility. You play contact sports, such as football or soccer. You participate in sports that may result in a fall, such as skateboarding, biking, skiing, or snowboarding. You do not exercise regularly. You use exercise equipment that does not fit well. What are the signs or symptoms? Symptoms of this condition include: Pain in the wrist, arm, or hand. Swelling or bruised skin near the wrist, hand, or arm. The skin may look yellow or blue. Stiffness or trouble moving the hand. Hearing a noise, like a pop or a snap, at the time of injury, or feeling a tear at the time of the injury. A warm feeling in the skin around the wrist. How is this diagnosed? This condition is diagnosed with a physical exam. Sometimes an X-ray is taken to make sure a bone did not break. You may also have an MRI of your wrist to check for torn ligaments. How is this treated? This condition is treated by resting and applying ice to your wrist. Additional treatment may include: Taking medicine for pain and inflammation. Wearing a splint, brace, or cast for a short period of time to keep your wrist from moving (immobilized). Doing exercises to strengthen and stretch your wrist. Having surgery. This may be done if the ligament is completely torn. Follow these instructions at home: If you have a splint or brace: Wear the splint or brace as told by your health care provider. Remove it only as told by your health care provider. Loosen it if your fingers tingle, become numb, or turn cold and blue. Keep it clean. If the splint or brace is not waterproof: ?Do not let it get wet. ?Cover it with a watertight covering when you take a bath or a shower. If you have a cast: Do not put pressure on any part of the cast until it is fully hardened. This may take several hours. Do not stick anything inside the cast to scratch your skin. Doing that increases your risk of infection. Check the skin around the cast every day. Tell your health care provider about any concerns. You may put lotion on dry skin around the edges of the cast. Do not put lotion on the skin underneath the cast. Keep it clean. If the cast is not waterproof: ?Do not let it get wet. ?Cover it with a watertight covering when you take a bath or shower. Managing pain, stiffness, and swelling If directed, put ice on the injured area. To do this: ?If you have a removable splint or brace, remove it as told by your health care provider. ?Put ice in a plastic bag. ?Place a towel between your skin and the bag or between the splint or cast and the bag. ?Leave the ice on for 20 minutes, 2 3 times a day. ?Remove the ice if your skin turns bright red. This is very important. If you cannot feel pain, heat, or cold, you have a greater risk of damage to the area. Move your fingers often to reduce stiffness and swelling. Raise (elevate) the injured area above the level of your heart while you are sitting or lying down. Activity Rest your wrist as told by your health care provider. Do not do things that cause pain. Ask your health care provider when it is safe to drive if you have a splint, brace, or cast on your wrist. Do exercises as told by your health care provider. Return to your normal activities as told by your health care provider. Ask your health care provider what activities are safe for you. General instructions Take ilzz-pem-tshkrof and prescription medicines only as told by your health care provider. Do not use any products that contain nicotine or tobacco, such as cigarettes, e-cigarettes, and chewing tobacco. These can delay healing. If you need help quitting, ask your health care provider. Keep all follow-up visits. This is important. Contact a health care provider if: Your pain, bruising, or swelling gets worse. Your skin becomes red, gets a rash, or has open sores. Your pain does not get better or it gets worse. Get help right away if: You have a new or sudden sharp pain in the hand, arm, or wrist. You have tingling or numbness in your hand. Your fingers turn white, very red, or cold and blue. You cannot move your fingers. Summary A wrist sprain is damage to ligaments in your wrist. Wrist sprains can range from mild to severe. Return to your normal activities as told by your health care provider. Ask your health care provider what activities are safe for you. You may need to wear a splint, brace, or cast for a short period of time. This information is not intended to replace advice given to you by your health care provider. Make sure you discuss any questions you have with your health care provider. Document Revised: 11/20/2020 Document Reviewed: 11/20/2020 [employer] Patient Education 2023 [employer] 10/08/2024 23:06:58 Ankle Sprain Ankle Sprain An ankle sprain is a stretch or tear in a ligament in the ankle. Ligaments are tissues that connect bones to each other. The two most common types of ankle sprains are: Inversion sprain. This happens when the foot turns inward and the ankle rolls outward. It affects the ligament on the outside of the foot (lateral ligament). Eversion sprain. This happens when the foot turns outward and the ankle rolls inward. It affects the ligament on the inner side of the foot (medial ligament). What are the causes? An ankle sprain is often caused by rolling or twisting the ankle by accident. What increases the risk? You are more likely to get an ankle sprain if you play sports. What are the signs or symptoms? Symptoms of an ankle sprain include: Pain in your ankle. Swelling. Bruising. Bruises may form right after you sprain your ankle or 1 2 days later. Trouble standing or walking. This includes trouble turning or changing directions. How is this diagnosed? An ankle sprain is diagnosed with a physical exam. Your health care provider will press on parts of your foot and ankle and try to move them in certain ways. You may also have X-rays taken. These may be done to see how severe the sprain is and to check for broken bones. How is this treated? An ankle sprain may be treated with: A brace or splint. This is used to keep the ankle from moving until it heals. An elastic bandage (dressing). This is used to support the ankle. Crutches. Pain medicine. Surgery. This may be needed if the sprain is severe. Physical therapy. This may help to improve the range of motion in the ankle. Follow these instructions at home: If you have a removable brace or a splint: Wear the brace or splint as told by your provider. Remove it only as told by your provider. Check the skin around the brace or splint every day. Tell your provider about any concerns. Loosen the brace or splint if your toes tingle, become numb, or turn cold and blue. Keep the brace or splint clean. If the brace or splint is not waterproof: ?Do not let it get wet. ?Cover it with a watertight covering when you take a bath or a shower. If you have an elastic dressing: Take the dressing off to shower or bathe. If the dressing feels too tight, adjust it to make it more comfortable. Loosen the dressing if your foot tingles, becomes numb, or turns cold and blue. Managing pain, stiffness, and swelling If told, put ice on the affected area. ?If you have a removable brace or splint, remove it as told by your provider. ?Put ice in a plastic bag. ?Place a towel between your skin and the bag. ?Leave the ice on for 20 minutes, 2 3 times a day. ?Remove the ice if your skin turns bright red. This is very important. If you cannot feel pain, heat, or cold, you have a greater risk of damage to the area. If your skin turns bright red, remove the ice right away to prevent skin damage. The risk of damage is higher if you cannot feel pain, heat, or cold. Move your toes often to reduce stiffness and swelling. For 2 3 days, raise (elevate) your ankle above the level of your heart while you are sitting or lying down. General instructions Take tkgf-rqu-nxqneff and prescription medicines only as told by your provider. Do not use any products that contain nicotine or tobacco. These products include cigarettes, chewing tobacco, and vaping devices, such as e-cigarettes. If you need help quitting, ask your provider. Rest your ankle. Do not use your ankle to support your body weight until your provider says that you can. Use crutches as told by your provider. Ask your provider when it is safe to drive if you have a brace or splint on your ankle. Contact a health care provider if: You have bruising or swelling that get worse all of a sudden. Your pain does not get better with medicine. Get help right away if: Your foot or toes become numb or blue. You have severe pain that gets worse. This information is not intended to replace advice given to you by your health care provider. Make sure you discuss any questions you have with your health care provider. Document Revised: 04/16/2023 Document Reviewed: 04/16/2023 [employer] Patient Education 2023 [employer]. Follow Up Care 10/08/2024 21:17:17 With:DOREEN HA Address: [place] [address]- Business (1) When:10/15/2024 [facility] 10-08-2024 Note ED Patient Education Note Orthopedics Wrist Sprain, Adult A wrist sprain is a stretch or tear in the strong tissues that connect the wrist bones to each other. These strong tissues are called ligaments. There are three types of wrist sprains: ??? Grade 1. The ligament is stretched more than normal. There may be a minor amount of wrist pain. ??? Grade 2. The ligament is partially torn. You may be able to move your wrist, but not very much. There may be a moderate amount of wrist pain. ??? Grade 3. The ligament or ligaments are completely torn. You may find it difficult to move your wrist even a little. There may be a significant amount of wrist pain. What are the causes? This condition may be caused by using the wrist too much during sports, exercise, or work. It can also happen due to a fall or during an accident. What increases the risk? You are more likely to develop this condition if: ??? You had a previous wrist or arm injury. ??? You have poor wrist strength and flexibility. ??? You play contact sports, such as football or soccer. ??? You participate in sports that may result in a fall, such as skateboarding, biking, skiing, or snowboarding. ??? You do not exercise regularly. ??? You use exercise equipment that does not fit well. What are the signs or symptoms? Symptoms of this condition include: ??? Pain in the wrist, arm, or hand. ??? Swelling or bruised skin near the wrist, hand, or arm. The skin may look yellow or blue. ??? Stiffness or trouble moving the hand. ??? Hearing a noise, like a pop or a snap, at the time of injury, or feeling a tear at the time of the injury. ??? A warm feeling in the skin around the wrist. How is this diagnosed? This condition is diagnosed with a physical exam. Sometimes an X-ray is taken to make sure a bone did not break. You may also have an MRI of your wrist to check for torn ligaments. How is this treated? This condition is treated by resting and applying ice to your wrist. Additional treatment may include: ??? Taking medicine for pain and inflammation. ??? Wearing a splint, brace, or cast for a short period of time to keep your wrist from moving (immobilized). ??? Doing exercises to strengthen and stretch your wrist. ??? Having surgery. This may be done if the ligament is completely torn. Follow these instructions at home: If you have a splint or brace: ??? Wear the splint or brace as told by your health care provider. Remove it only as told by your health care provider. ??? Loosen it if your fingers tingle, become numb, or turn cold and blue. ??? Keep it clean. ??? If the splint or brace is not waterproof: ? Do not let it get wet. ? Cover it with a watertight covering when you take a bath or a shower. If you have a cast: ??? Do not put pressure on any part of the cast until it is fully hardened. This may take several hours. ??? Do not stick anything inside the cast to scratch your skin. Doing that increases your risk of infection. ??? Check the skin around the cast every day. Tell your health care provider about any concerns. ??? You may put lotion on dry skin around the edges of the cast. Do not put lotion on the skin underneath the cast. ??? Keep it clean. ??? If the cast is not waterproof: ? Do not let it get wet. ? Cover it with a watertight covering when you take a bath or shower. Managing pain, stiffness, and swelling ??? If directed, put ice on the injured area. To do this: ? If you have a removable splint or brace, remove it as told by your health care provider. ? Put ice in a plastic bag. ? Place a towel between your skin and the bag or between the splint or cast and the bag. ? Leave the ice on for 20 minutes, 2?3 times a day. ? Remove the ice if your skin turns bright red. This is very important. If you cannot feel pain, heat, or cold, you have a greater risk of damage to the area. ??? Move your fingers often to reduce stiffness and swelling. ??? Raise (elevate) the injured area above the level of your heart while you are sitting or lying down. Activity ??? Rest your wrist as told by your health care provider. Do not do things that cause pain. ??? Ask your health care provider when it is safe to drive if you have a splint, brace, or cast on your wrist. ??? Do exercises as told by your health care provider. ??? Return to your normal activities as told by your health care provider. Ask your health care provider what activities are safe for you. General instructions ??? Take hcrb-uoe-owisexr and prescription medicines only as told by your health care provider. ??? Do not use any products that contain nicotine or tobacco, such as cigarettes, e-cigarettes, and chewing tobacco. These can delay healing. If you need help quitting, ask your health care provider. ??? Keep all follow-up visits. This is important. Contact a health care provider if: ??? Your pain, bruising, or swelling gets worse (more content not included)... [facility] 10-08-2024 Evaluation + Plan note Extrac emmett from: Title:ED Note Author:Eric Ramírez DO Date :10/08/24 Left wrist sprain (S63.502A: Unspecified sprain of left wrist, initial encounter) Sprain of ankle, left (S93.402A: Sprain of unspecified ligament of left ankle, initial encounter) Orders: acetaminophen, 650 mg = 2 tab(s), Tab, Oral, Once PRN Pain, STAT, Start date 10/08/24 21:59:00 EDT, 10/08/24 21:59:00 EDT ibuprofen, 600 mg = 1 tab(s), Tab, Oral, Once PRN Pain, STAT, Start date 10/08/24 21:59:00 EDT, 10/08/24 21:59:00 EDT Luiz Wrap Thumb Spica Splint Application XR Ankle 3+ Views Left XR Wrist 3+ Views Left [facility] 01-03-2025 History of Present illness Narrative* Familia Knight DPM FACFAS - 07/30/2024 8:00 AM EST Images from the original note were not included. Patient: Scarlet Durand : 2000 PCP: Noms Provider MD Vanessa SUBJECTIVE This is a 24 y.o. female that presents today for follow-up of plantar fasciitis bilateral foot. They state they have been stretching and icing as directed. They relate mild to moderate improvement since their last visit. The patient rates the pain on a scale from 1-10 as an 1 with 10 being the worst pain of their life. She is doing significantly better she has been stretching and icing as directed. Allergies: No Known Allergies Past Medical History: Past Medical History: Diagnosis Date Bipolar disorder ([facility]) Fibromyalgia Gestational diabetes Medications: No current outpatient medications on file. Review of systems: Constitutional: Denies fever, chills, nausea, vomiting GI: Denies abdominal pain, cramping, loose stool, gastric ulcers Musculoskeletal: Denies low back pain, knee pain, systemic arthritis Neurologic: Denies burning, tingling, transient paralysis OBJECTIVE Physical Examination: DERM: Positive hair growth to b/l feet with good skin turgor noted. Negative openings in skin VASC: DP /PT were palpable bilateral. Capillary refill time < 3 seconds Digits 1-5 bilateral NEURO: [employer] Jeremy 5.07 monofilament was intact B/L. Vibratory sensation was intact B/L Musculoskeletal: Muscle strength was +5 over 5 all intrinsic and extrinsic muscles tested. There isno pain with direct palpation of the medial band of the plantar fascia bilaterally foot. Mild pain throughout the course of the plantar fascia. No palpable deficits or ecchymosis noted within the plantar fascial band. There is no pain with lateral compression of the heel. Patient has a mild gastrocnemius-soleus equinus with mild tenderness noted at the level of the Achilles tendon. No palpable deficits noted within the Achilles tendon. No pain with range of motion of the ankle or subtalar joint. ASSESSMENT 1. Plantar fasciitis 2. Gastrocnemius equinus of left lower extremity 3. Gastrocnemius equinus of right lower extremity PLAN The patient was educated on the etiology of plantar fasciitis. I recommended the patient continue stretching and icing on a regular basis. She is to continue with the orthotic devices she is not having any concerns relating to them she will follow up with me p.r.n. BUCK Reynoso documented in this encounterSt. Louis Children's [id number] History of Present illness Narrative* BUCK Reynoso - 07/02/2024 7:50 AM EST Images from the original note were not included. Patient: Scarlet Durand : 2000 PCP: Noms Provider MD Vanessa SUBJECTIVE This is a 24 y.o. female that presents today for follow-up of plantar fasciitis bilateral foot. They state they have been stretching and icing as directed. They relate mild to moderate improvement since their last visit. The patient rates the pain on a scale from 1-10 as an 1 with 10 being the worst pain of their life. She states she is feeling significantly better. Allergies: No Known Allergies Past Medical History: Past Medical History: Diagnosis Date Bipolar disorder ([facility]) Fibromyalgia Gestational diabetes Medications: No current outpatient medications on file. Review of systems: Constitutional: Denies fever, chills, nausea, vomiting GI: Denies abdominal pain, cramping, loose stool, gastric ulcers Musculoskeletal: Denies low back pain, knee pain, systemic arthritis Neurologic: Denies burning, tingling, transient paralysis OBJECTIVE Physical Examination: DERM: Positive hair growth to b/l feet with good skin turgor noted. Negative openings in skin VASC: DP /PT were palpable bilateral. Capillary refill time < 3 seconds Digits 1-5 bilateral NEURO: [employer] 5.07 monofilament was intact B/L. Vibratory sensation was intact B/L Musculoskeletal: Muscle strength was +5 over 5 all intrinsic and extrinsic muscles tested. There isless pain with direct palpation of the medial band of the plantar fascia bilaterally foot. Mild pain throughout the course of the plantar fascia. No palpable deficits or ecchymosis noted within the plantar fascial band. There is no pain with lateral compression of the heel. Patient has a mild gastrocnemius-soleus equinus with mild tenderness noted at the level of the Achilles tendon. No palpable deficits noted within the Achilles tendon. No pain with range of motion of the ankle or subtalar joint. Radiographs: AP/MO/LAT: Diagnostic ultrasound: ASSESSMENT 1. Plantar fasciitis 2. Gastrocnemius equinus of left lower extremity 3. Gastrocnemius equinus of right lower extremity PLAN The patient was educated on the etiology of plantar fasciitis. I recommended the patient continue stretching and icing on a regular basis. The patient was dispensed 1 pair of custom molded orthotic devices. They were educated on the use of the devices in shoe gear. There also educated on the break-in period with the orthotic devices as well. Patient was dispensed a handout describing the device with detailed instructions. Familia Knight DPM FACFAS documented in this encounterSt. Louis Children's [id number] Evaluation + Plan note Diagnostic Tests Pending * T3 Total 05/31/24 [facility] [id number] Hospital Discharge instructions Patient Education 05/30/2024 15:17:51 Nonspecific Chest Pain, Adult, Ebsg-yv-Xdoe Nonspecific Chest Pain Chest pain can be caused by many different conditions. Some causes of chest pain can be life-threatening. These will require treatment right away. Serious causes of chest pain include: Heart attack. A tear in the body's main blood vessel. Redness and swelling (inflammation) around your heart. Blood clot in your lungs. Other causes of chest pain may not be so serious. These include: Heartburn. Anxiety or stress. Damage to bones or muscles in your chest. Lung infections. Chest pain can feel like: Pain or discomfort in your chest. Crushing, pressure, aching, or squeezing pain. Burning or tingling. Dull or sharp pain that is worse when you move, cough, or take a deep breath. Pain or discomfort that is also felt in your back, neck, jaw, shoulder, or arm, or pain that spreads to any of these areas. It is hard to know whether your pain is caused by something that is serious or something that is not so serious. So it is important to see your doctor right away if you have chest pain. Follow these instructions at home: Medicines Take qwam-fgq-tuteoay and prescription medicines only as told by your doctor. If you were prescribed an antibiotic medicine, take it as told by your doctor. Do not stop taking the antibiotic even if you start to feel better. Lifestyle Rest as told by your doctor. Do not use any products that contain nicotine or tobacco, such as cigarettes, e- cigarettes, and chewing tobacco. If you need help quitting, ask your doctor. Do not drink alcohol. Make lifestyle changes as told by your doctor. These may include: ?Getting regular exercise. Ask your doctor what activities are safe for you. ?Eating a heart-healthy diet. A diet and nutrition assistant (dietitian) can help you to learn healthy eating options. ?Staying at a healthy weight. ?Treating diabetes or high blood pressure, if needed. ?Lowering your stress. Activities such as yoga and relaxation techniques can help. General instructions Pay attention to any changes in your symptoms. Tell your doctor about them or any new symptoms. Avoid any activities that cause chest pain. Keep all follow-up visits as told by your doctor. This is important. You may need more testing if your chest pain does not go away. Contact a doctor if: Your chest pain does not go away. You feel depressed. You have a fever. Get help right away if: Your chest pain is worse. You have a cough that gets worse, or you cough up blood. You have very bad (severe) pain in your belly (abdomen). You pass out (faint). You have either of these for no clear reason: ?Sudden chest discomfort. ?Sudden discomfort in your arms, back, neck, or jaw. You have shortness of breath at any time. You suddenly start to sweat, or your skin gets clammy. You feel sick to your stomach (nauseous). You throw up (vomit). You suddenly feel lightheaded or dizzy. You feel very weak or tired. Your heart starts to beat fast, or it feels like it is skipping beats. These symptoms may be an emergency. Do not wait to see if the symptoms will go away. Get medical help right away. Call your local emergency services (911 in the [place] Do not drive yourself to the hospital. Summary Chest pain can be caused by many different conditions. The cause may be serious and need treatment right away. If you have chest pain, see your doctor right away. Follow your doctor's instructions for taking medicines and making lifestyle changes. Keep all follow-up visits as told by your doctor. This includes visits for any further testing if your chest pain does not go away. Be sure to know the signs that show that your condition has become worse. Get help right away if you have these symptoms. This information is not intended to replace advice given to you by your health care provider. Make sure you discuss any questions you have with your health care provider. Document Revised: 05/29/2023 Document Reviewed: 05/29/2023 [employer] Patient Education 2023 [employer]. Follow Up Care 05/30/2024 14:19:07 With:DOREEN HA Address: [address] [place] [address]- Business (1) When:06/02/2024 15:03:14 Comments:Call Dr for diagnosis based follow up [facility] 11-03-2024 NoteED Patient Education Note Gastroenterology Nonspecific Chest Pain Chest pain can be caused by many different conditions. Some causes of chest pain can be life-threatening. These will require treatment right away. Serious causes of chest pain include: ??? Heart attack. ??? A tear in the body's main blood vessel. ??? Redness and swelling (inflammation) around your heart. ??? Blood clot in your lungs. Other causes of chest pain may not be so serious. These include: ??? Heartburn. ??? Anxiety or stress. ??? Damage to bones or muscles in your chest. ??? Lung infections. Chest pain can feel like: ??? Pain or discomfort in your chest. ??? Crushing, pressure, aching, or squeezing pain. ??? Burning or tingling. ??? Dull or sharp pain that is worse when you move, cough, or take a deep breath. ??? Pain or discomfort that is also felt in your back, neck, jaw, shoulder, or arm, or pain that spreads to any of these areas. It is hard to know whether your pain is caused by something that is serious or something that is not so serious. So it is important to see your doctor right away if you have chest pain. Follow these instructions at home: Medicines ??? Take orns-uqo-wndltws and prescription medicines only as told by your doctor. ??? If you were prescribed an antibiotic medicine, take it as told by your doctor. Do not stop taking the antibiotic even if you start to feel better. Lifestyle ??? Rest as told by your doctor. ??? Do not use any products that contain nicotine or tobacco, such as cigarettes, e-cigarettes, andchewing tobacco. If you need help quitting, ask your doctor. ??? Do not drink alcohol. ??? Make lifestyle changes as told by your doctor. These may include: ? Getting regular exercise. Ask your doctor what activities are safe for you. ? Eating a heart-healthy diet. A diet and nutrition assistant (dietitian) can help you to learn healthy eating options. ? Staying at a healthy weight. ? Treating diabetes or high blood pressure, if needed. ? Lowering your stress. Activities such as yoga and relaxation techniques can help. General instructions ??? Pay attention to any changes in your symptoms. Tell your doctor about them or any new symptoms. ??? Avoid any activities that cause chest pain. ??? Keep all follow-up visits as told by your doctor. This is important. You may need more testing if your chest pain does not go away. Contact a doctor if: ??? Your chest pain does not go away. ??? You feel depressed. ??? You have a fever. Get help right away if: ??? Your chest pain is worse. ??? You have a cough that gets worse, or you cough up blood. ??? You have very bad (severe) pain in your belly (abdomen). ??? You pass out (faint). ??? You have either of these for no clear reason: ? Sudden chest discomfort. ? Sudden discomfort in your arms, back, neck, or jaw. ??? You have shortness of breath at any time. ??? You suddenly start to sweat, or your skin gets clammy. ??? You feel sick to your stomach (nauseous). ??? You throw up (vomit). ??? You suddenly feel lightheaded or dizzy. ??? You feel very weak or tired. ??? Your heart starts to beat fast, or it feels like it is skipping beats. These symptoms may be an emergency. Do not wait to see if the symptoms will go away. Get medical help right away. Call your local emergency services (911 in the [place] Do not drive yourself to the hospital. Summary ??? Chest pain can be caused by many different conditions. The cause may be serious and need treatment right away. If you have chest pain, see your doctor right away. ??? Follow your doctor's instructions for taking medicines and making lifestyle changes. ??? Keep all follow-up visits as told by your doctor. This includes visits for any further testing if your chest pain does not go away. ??? Be sure to know the signs that show that your condition has become worse. Get help right away if you have these symptoms. This information is not intended to replace advice given to you by your health care provider. Make sure you discuss any questions you have with your health care provider. Document Revised: 05/29/2023 Document Reviewed: 05/29/2023 [employer]juan luis Patient Education ? 2023 [employer] [facility] 05-30-2024 Evaluation + Plan noteExtracted from: Title:ED Note Author:Miguelito Rubi PA-C te:05/30/24 Nonspecific chest pain (R07. 9: Chest pain, unspecified) Orders: cyclobenzaprine, 10 mg = 1 tab(s), Oral, TID, PRN for spasm, # 30 tab(s), Refills(s) 0, Pharmacy: [facility], 162, cm, 05/30/24 14:27:00 EST, Height/Length Dosing, 127, kg, 05/30/24 14:27:00 EST, Weight Dosing Basic Metabolic Panel Beta hCG Qual CBC w/ Auto Diff ED Cardiac Monitoring eGFR Oxygen Saturation Oxygen Therapy PT & PTT Saline Lock Insert Troponin 0 Hr. UA with Cult Rflx XR Chest Single View Diagnostic Tests Pending * UA with Cult Rflx 05/30/24 [facility] [id number] History of Present illness Narrative* Familia Knight DPM FACFAS - 05/19/2024 1:50 PM EDT Images from the original note were not included. Patient: Scarlet Durand : 2000 PCP: [facility]oms Provider MD Vanessa SUBJECTIVE This is a 24 y.o. female that presents today with a chief complaint of painful right and left medial heel. They stay it hurts when they get out of bed in the morning and when they get up from a seated position. The pain improves with ambulation. They deny a history of trauma to the area. They have attempted numerous conservative therapies including: shoe gear modifications, xwfd-skl-bqwuyju anti-inflammatory medications, dksq-pkl-cvkqprg orthotic devices to no avail. They rate the pain scale from 1-10 as an 8 with 10 being the most painful. Allergies: No Known Allergies Past Medical History: Past Medical History: Diagnosis Date Bipolar disorder ([facility]) Fibromyalgia Gestational diabetes Medications: No current outpatient medications on file. Review of systems: Constitutional: Denies fever, chills, nausea, vomiting GI: Denies abdominal pain, cramping, loose stool, gastric ulcers Musculoskeletal: Denies low back pain, knee pain, systemic arthritis Neurologic: Denies burning, tingling, transient paralysis Cardiac: Denies any cardiac issues Respiratory: Denies shortness of breath denies lung issues or breathing difficulties OBJECTIVE Physical Examination: DERM: Positive hair growth to b/l feet with good skin turgor noted. Negative openings in skin VASC: DP /PT were palpable bilateral. Capillary refill time < 3 seconds Digits 1-5 bilateral NEURO: [place] Jeremy 5.07 monofilament was intact B/L. Vibratory sensation was intact B/L Musculoskeletal: Muscle strength was +5 over 5 all intrinsic and extrinsic muscles tested. There issignificant pain with direct palpation of the medial band of the plantar fascia right and left foot. Mild pain throughout the course of the plantar fascia. No palpable deficits or ecchymosis noted within the plantar fascial band. There is no pain with lateral compression of the heel. Patient has a mild gastrocnemius -soleus equinus with mild tenderness noted at the level of the Achilles tendon bilaterally. No palpable deficits noted within the Achilles tendon bilaterally. No pain with range of motion of the ankle or subtalar joint. Bilaterally. Radiographs: AP/MO/LAT: Diagnostic ultrasound: Diagnostic ultrasound 12 megahertz linear probe increased thickness of the plantar fascia greater than 4 mm. Small spur noted at site 4 of the calcaneus right and left foot. ASSESSMENT 1. Plantar fasciitis 2. Calcaneal spur of foot, right 3. Calcaneal spur, left foot 4. Gastrocnemius equinus of left lower extremity 5. Gastrocnemius equinus of right lower extremity PLAN The patient was educated on the etiology of plantar fasciitis right and left foot. They were instructed in detail on stretching on a regular basis. They are also instructed on icing the plantar fascia on a regular basis as well. I dispensed a night splint to be worn to help provide passive stretch to the plantar fascial band. The patient was given injection consisting of 1 cc of 2% lidocaine plain and 1 cc of Kenalog 10 via ultrasonic guidance into the medial and central bands of the plantar fascia. Bilaterally. Ultrasound was necessary to ensure exact placement into the medial and central bands of the plantar fascia and avoid injection into the plantar fat pad. I am also recommending custom molded orthotic devices. Patient was digitally scan today for custom- molded orthotic devices. Carewas taken to place the subtalar joint in neutral position. Patient was digitally scan today for custom-molded orthotic devices. Care was taken to place the subtalar joint in neutral position. The patient was informed that the orthotics will take 3 weeks to arrive from the laboratory. A plastic pre-fabricated static Ankle-Foot Orthosis ([id number]) was dispensed and fitted at this visit.The device will be utilized for the next six to eight weeks. The function of this device is to serve as an anti-contracture device of the plantar fascia and Achilles tendon and to restrict and limit motion and help reduce excessive stress and strain to the plantar fascia and Achilles tendon. The goals of this therapy are to; 1.) To reduce the pain and symptoms of post- static dyskinesia, 2.) Prevent abf-ndibcx-qocexym contracture of the Achilles tendon. 3.) Provide static stretch of the Achillestendon, 4.) Reduce plantar fasciitis. The patient states that the device is comfortable when applied at this time. The patient was shown and told in detail how to properly wear and care for the device. Written instructions and warranty information were given along with the list of the current Durable Medical Equipment Supplier Guidelines. BUCK Reynoso documented in this encounterSt. Louis Children's [id number] Evaluation + Plan note Extracted from: Title:ED Note Author:Lukas Hernandez PA-C te:05/17/24 Pharyngitis (J02.9: Acute ph aryngitis, unspecified) Orders: amoxicillin, 500 mg = 1 cap(s), Oral, TID, X 10 day(s), # 30 cap(s), Refills(s) 0, Pharmacy: [facility], 162, cm, 05/09/24 14:21:00 EDT, Height/Length Dosing, 121.6, kg, 05/09/24 14:21:00 EDT, Weight Dosing [facility] 10-21-2024 Hospital Discharge instructions Patient Education 05/17/2024 09:05:59 Strep Throat, Adult Strep Throat, Adult Strep throat is an infection in the throat that is caused by bacteria. It is common during the coldmonths of the year. It mostly affects children who are 5 15 years old. However, people of all ages can get it at any time of the year. This infection spreads from person to person (is contagious) through coughing, sneezing, or having close contact. Your health care provider may use other names to describe the infection. When strep throat affects the tonsils, it is called tonsillitis. When it affects the back of the throat, it is called pharyngitis. What are the causes? This condition is caused by the Streptococcus pyogenes bacteria. What increases the risk? You are more likely to develop this condition if: You care for school-age children, or are around school-age children. Children are more likely to get strep throat and may spread it to others. You spend time in crowded places where the infection can spread easily. You have close contact with someone who has strep throat. What are the signs or symptoms? Symptoms of this condition include: Fever or chills. Redness, swelling, or pain in the tonsils or throat. Pain or difficulty when swallowing. White or yellow spots on the tonsils or throat. Tender glands in the neck and under the jaw. Bad smelling breath. Red rash all over the body. This is rare. How is this diagnosed? This condition is diagnosed by tests that check for the presence and the amount of bacteria that cause strep throat. They are: Rapid strep test. Your throat is swabbed and checked for the presence of bacteria. Results are usually ready in minutes. Throat culture test. Your throat is swabbed. The sample is placed in a cup that allows infections to grow. Results are usually ready in 1 or 2 days. How is this treated? This condition may be treated with: Medicines that kill germs (antibiotics). Medicines that relieve pain or fever. These include: ?Ibuprofen or acetaminophen. ?Aspirin, only for people who are over the age of 18. ?Throat lozenges. ?Throat sprays. Follow these instructions at home: Medicines Take jylb-lqo-ughhnku and prescription medicines only as told by your health care provider. Take your antibiotic medicine as told by your health care provider. Do not stop taking the antibiotic even if you start to feel better. Eating and drinking If you have trouble swallowing, try eating soft foods until your sore throat feels better. Drink enough fluid to keep your urine pale yellow. To help relieve pain, you may have: ?Warm fluids, such as soup and tea. ?Cold fluids, such as frozen desserts or popsicles. General instructions Gargle with a salt-water mixture 3 4 times a day or as needed. To make a salt- water mixture, completely dissolve 1 tsp (3 6 g) of salt in 1 cup (237 mL) of warm water. Get plenty of rest. Stay home from work or school until you have been taking antibiotics for 24 hours. Do not use any products that contain nicotine or tobacco. These products include cigarettes, chewing tobacco, and vaping devices, such as e-cigarettes. If you need help quitting, ask your health careprovider. It is up to you to get your test results. Ask your health care provider, or the department that is doing the test, when your results will be ready. Keep all follow-up visits. This is important. How is this prevented? Do not share food, drinking cups, or personal items that could cause the infection to spread to other people. Wash your hands often with soap and water for at least 20 seconds. If soap and water are not available, use hand bedspread folder. Make sure that all people in your house wash their hands well. Have family members tested if they have a sore throat or fever. They may need an antibiotic if theyhave strep throat. Contact a health care provider if: You have swelling in your neck that keeps getting bigger. You develop a rash, cough, or earache. You cough up a thick mucus that is green, yellow-brown, or bloody. You have pain or discomfort that does not get better with medicine. Your symptoms seem to be getting worse. You have a fever. Get help right away if: You have new symptoms, such as vomiting, severe headache, stiff or painful neck, chest pain, or shortness of breath. You have severe throat pain, drooling, or changes in your voice. You have swelling of the neck, or the skin on the neck becomes red and tender. You have signs of dehydration, such as tiredness (fatigue), dry mouth, and decreased urination. You become increasingly sleepy, or you cannot wake up completely. Your joints become red or painful. These symptoms may represent a serious problem that is an emergency. Do not wait to see if the symptoms will go away. Get medical help right away. Call your local emergency services (911 in the [place] Do not drive yourself to the hospital. Summary Strep throat is an infection in the throat that is caused by the Streptococcus pyogenes bacteria. This infection is spread from person to person (is contagious) through coughing, sneezing, or having close contact. Take your medicines, including antibiotics, as told by your health care provider. Do not stop taking the antibiotic even if you start to feel better. To prevent the spread of germs, wash your hands well with soap and water. Have others do the same. Do not share food, drinking cups, or personal items. Get help right away if you have new symptoms, such as vomiting, severe headache, stiff or painful neck, chest pain, or shortness of breath. This information is not intended to replace advice given to you by your health care provider. Make sure you discuss any questions you have with your health care provider. Document Revised: 11/06/2021 Document Reviewed: 11/06/2021 [employer] Patient Education 2023 [employer]. Follow Up Care 05/17/2024 08:30:06 With:DOREEN HA Address: [facility] [place] [address] [facility] (1) When:05/20/2024 08:41:55 [facility] 10-21-2024 NoteED Patient Education Note Infectious Disease Strep Throat, Adult Strep throat is an infection in the throat that is caused by bacteria. It is common during the coldmonths of the year. It mostly affects children who are 5?15 years old. However, people of all ages can get it at any time of the year. This infection spreads from person to person (is contagious) through coughing, sneezing, or having close contact. Your health care provider may use other names to describe the infection. When strep throat affects the tonsils, it is called tonsillitis. When it affects the back of the throat, it is called pharyngitis. What are the causes? This condition is caused by the Streptococcus pyogenes bacteria. What increases the risk? You are more likely to develop this condition if: ? You care for school-age children, or are around school-age children. Children are more likely to get strep throat and may spread it to others. ? You spend time in crowded places where the infection can spread easily. ? You have close contact with someone who has strep throat. What are the signs or symptoms? Symptoms of this condition include: ? Fever or chills. ? Redness, swelling, or pain in the tonsils or throat. ? Pain or difficulty when swallowing. ? White or yellow spots on the tonsils or throat. ? Tender glands in the neck and under the jaw. ? Bad smelling breath. ? Red rash all over the body. This is rare. How is this diagnosed? This condition is diagnosed by tests that check for the presence and the amount of bacteria that cause strep throat. They are: ? Rapid strep test. Your throat is swabbed and checked for the presence of bacteria. Results are usually ready in minutes. ? Throat culture test. Your throat is swabbed. The sample is placed in a cup that allows infectionsto grow. Results are usually ready in 1 or 2 days. How is this treated? This condition may be treated with: ? Medicines that kill germs (antibiotics). ? Medicines that relieve pain or fever. These include: ? Ibuprofen or acetaminophen. ? Aspirin, only for people who are over the age of 18. ? Throat lozenges. ? Throat sprays. Follow these instructions at home: Medicines ? Take tdtg-vxf-snojqdb and prescription medicines only as told by your health care provider. ? Take your antibiotic medicine as told by your health care provider. Do not stop taking the antibiotic even if you start to feel better. Eating and drinking ? If you have trouble swallowing, try eating soft foods until your sore throat feels better. ? Drink enough fluid to keep your urine pale yellow. ? To help relieve pain, you may have: ? Warm fluids, such as soup and tea. ? Cold fluids, such as frozen desserts or popsicles. General instructions ? Gargle with a salt-water mixture 3?4 times a day or as needed. To make a salt- water mixture, completely dissolve ??1 tsp (3?6 g) of salt in 1 cup (237 mL) of warm water. ? Get plenty of rest. ? Stay home from work or school until you have been taking antibiotics for 24 hours. ? Do not use any products that contain nicotine or tobacco. These products include cigarettes, chewing tobacco, and vaping devices, such as e-cigarettes. If you need help quitting, ask your health care provider. ? It is up to you to get your test results. Ask your health care provider, or the department that is doing the test, when your results will be ready. ? Keep all follow-up visits. This is important. How is this prevented? ? Do not share food, drinking cups, or personal items that could cause the infection to spread to other people. ? Wash your hands often with soap and water for at least 20 seconds. If soap and water are not available, use hand bedspread folder. Make sure that all people in your house wash their hands well. ? Have family members tested if they have a sore throat or fever. They may need an antibiotic if they have strep throat. Contact a health care provider if: ? You have swelling in your neck that keeps getting bigger. ? You develop a rash, cough, or earache. ? You cough up a thick mucus that is green, yellow-brown, or bloody. ? You have pain or discomfort that does not get better with medicine. ? Your symptoms seem to be getting worse. ? You have a fever. Get help right away if: ? You have new symptoms, such as vomiting, severe headache, stiff or painful neck, chest pain, or shortness of breath. ? You have severe throat pain, drooling, or changes in your voice. ? You have swelling of the neck, or the skin on the neck becomes red and tender. ? You have signs of dehydration, such as tiredness (fatigue), dry mouth, and decreased urination. ? You become increasingly sleepy, or you cannot wake up completely. ? Your joints become red or painful. These symptoms may represent a serious problem that i (more content not included)...[facility]10-13-2024 Hospital Discharge instructions Patient Education 05/09/2024 16:13:30 Dental Pain, Etsu-ds-Jihw Dental Pain Dental pain is often a sign that something is wrong with your teeth or gums. You can also have painafter a dental treatment. If you have dental pain, it is important to contact your dentist, especially if the cause of the pain is not known. Dental pain may hurt a lot or a little and can be caused by many things, including: Tooth decay (cavities or caries). Infection. The inner part of the tooth being filled with pus (an abscess). Injury. A crack in the tooth. Gums that move back and expose the root of a tooth. Gum disease. Abnormal grinding or clenching of teeth. Not taking good care of your teeth. Sometimes the cause of pain is not known. You may have pain all the time, or it may happen only when you are: Chewing. Exposed to hot or cold temperatures. Eating or drinking foods or drinks that have a lot of sugar in them, such as soda or candy. Follow these instructions at home: Medicines Take bycr-vjx-igpblfo and prescription medicines only as told by your dentist. If you were prescribed an antibiotic medicine, take it as told by your dentist. Do not stop taking it even if you start to feel better. Eating and drinking Do not eat foods or drinks that cause you pain. These include: Very hot or very cold foods or drinks. Sweet or sugary foods or drinks. Managing pain and swelling If told, put ice on the painful area of your face. To do this: ?Put ice in a plastic bag. ?Place a towel between your skin and the bag. ?Leave the ice on for 20 minutes, 2 3 times a day. ?Take off the ice if your skin turns bright red. This is very important. If you cannot feel pain, heat, or cold, you have a greater risk of damage to the area. Brushing your teeth Paton your teeth twice a day using a fluoride toothpaste. Use a toothpaste made for sensitive teeth as told by your dentist. Use a soft toothbrush. General instructions Floss your teeth at least once a day. Do not put heat on the outside of your face. Rinse your mouth often with salt water. To make salt water, dissolve 1 tsp (3 6 g) of salt in 1 cup(237 mL) of warm water. Watch your dental pain. Let your dentist know if there are any changes. Keep all follow-up visits. Contact a dentist if: You have dental pain and you do not know why. Medicine does not help your pain. Your symptoms get worse. You have new symptoms. Get help right away if: You cannot open your mouth. You are having trouble breathing or swallowing. You have a fever. Your face, neck, or jaw is swollen. These symptoms may be an emergency. Get help right away. Call your local emergency services (871 inthe [place] Do not wait to see if the symptoms will go away. Do not drive yourself to the hospital. Summary Dental pain may be caused by many things, including tooth decay, injury, or infection. In some cases, the cause is not known. Dental pain may hurt a lot or very little. You may have pain all the time, or you may have it only when you eat or drink. Take boki-wzs-lplhszx and prescription medicines only as told by your dentist. Watch your dental pain for any changes. Let your dentist know if symptoms get worse. This information is not intended to replace advice given to you by your health care provider. Make sure you discuss any questions you have with your health care provider. Document Revised: 04/18/2021 Document Reviewed: 04/18/2021 [employer] Patient Education 2023 [employer]. Follow Up Care 05/09/2024 14:12:51 With:Dental: [facility] [phone] Address:Unknown When:05/12/2024 16:12:50 With:Dental: [facility] [phone] Address:Unknown When:05/12/2024 16:12:50 With:D[facility]: [facility] [phone] Address:Unknown When:05/12/2024 16:12:49 Comments:Call to schedule a follow-up appointment with the dentists provided or the family [facility] service dentist on the pamphlet in the next 2 to 3 days. Take the antibiotic as prescribed. Use the viscous lidocaine as needed for pain management along with Tylenol and ibuprofen. Return to ED with any new or worsening symptoms. With:DOREEN HA Address: [facility] [place] [address]- Business (1) When:Within 3 Day(s) [facility] 10-13-2024 NoteED Patient Education Note Dentistry Dental Pain Dental pain is often a sign that something is wrong with your teeth or gums. You can also have painafter a dental treatment. If you have dental pain, it is important to contact your dentist, especially if the cause of the pain is not known. Dental pain may hurt a lot or a little and can be caused by many things, including: ? Tooth decay (cavities or caries). ? Infection. ? The inner part of the tooth being filled with pus (an abscess). ? Injury. ? A crack in the tooth. ? Gums that move back and expose the root of a tooth. ? Gum disease. ? Abnormal grinding or clenching of teeth. ? Not taking good care of your teeth. Sometimes the cause of pain is not known. You may have pain all the time, or it may happen only when you are: ? Chewing. ? Exposed to hot or cold temperatures. ? Eating or drinking foods or drinks that have a lot of sugar in them, such as soda or candy. Follow these instructions at home: Medicines ? Take dzdt-ljk-ulrsucc and prescription medicines only as told by your dentist. ? If you were prescribed an antibiotic medicine, take it as told by your dentist. Do not stop taking it even if you start to feel better. Eating and drinking Do not eat foods or drinks that cause you pain. These include: ? Very hot or very cold foods or drinks. ? Sweet or sugary foods or drinks. Managing pain and swelling ? If told, put ice on the painful area of your face. To do this: ? Put ice in a plastic bag. ? Place a towel between your skin and the bag. ? Leave the ice on for 20 minutes, 2?3 times a day. ? Take off the ice if your skin turns bright red. This is very important. If you cannot feel pain, heat, or cold, you have a greater risk of damage to the area. Brushing your teeth ? Paton your teeth twice a day using a fluoride toothpaste. ? Use a toothpaste made for sensitive teeth as told by your dentist. ? Use a soft toothbrush. General instructions ? Floss your teeth at least once a day. ? Do not put heat on the outside of your face. ? Rinse your mouth often with salt water. To make salt water, dissolve ??1 tsp (3?6 g) of salt in 1cup (237 mL) of warm water. ? Watch your dental pain. Let your dentist know if there are any changes. ? Keep all follow-up visits. Contact a dentist if: ? You have dental pain and you do not know why. ? Medicine does not help your pain. ? Your symptoms get worse. ? You have new symptoms. Get help right away if: ? You cannot open your mouth. ? You are having trouble breathing or swallowing. ? You have a fever. ? Your face, neck, or jaw is swollen. These symptoms may be an emergency. Get help right away. Call your local emergency services (911 int [place] ? Do not wait to see if the symptoms will go away. ? Do not drive yourself to the hospital. Summary ? Dental pain may be caused by many things, including tooth decay, injury, or infection. In some cases, the cause is not known. ? Dental pain may hurt a lot or very little. You may have pain all the time, or you may have it only when you eat or drink. ? Take qnps-xyx-gfcrxcd and prescription medicines only as told by your dentist. ? Watch your dental pain for any changes. Let your dentist know if symptoms get worse. This information is not intended to replace advice given to you by your health care provider. Make sure you discuss any questions you have with your health care provider. Document Revised: 04/18/2021 Document Reviewed: 04/18/2021 [employer] Patient Education ? 2023 [employer].[facility] 05-09-2024 Evaluation + Plan noteExtracted from: Title:ED Note Author:Lois Engel PA-C te:05/09/24 Broken or cracked tooth, non traumatic (K03.81: Cracked tooth) Pain, dental (K08.89: Other specified disorders of teeth and supporting structures) Orders: benzocaine topical, 1 micaela, Gel, Topical, QID, STAT, Start date 05/09/24 15:11:00 EDT ketorolac, 30 mg = 1 mL, Injection, IntraMuscular, Once, Stop date 05/09/24 15:11:00 EDT, STAT, Start date 05/09/24 15:11:00 EDT, 05/09/24 15:11:00 EDT lidocaine topical, 0.1 gm, 5 mL, Topical, QIDACHS, 100 mL, Refill(s) 0, [facility], 162, cm, 05/09/24 14:21:00 EDT, Height/Length Dosing, 121.6, kg, 05/09/24 14:21:00 EDT, Weight Dosing lidocaine topical, 200 mg, 10 mL, Soln-Oral, Oral, Once, Stop date 05/09/24 15:11:00 EDT, STAT, Start date 05/09/24 15:11:00 EDT penicillin V potassium, 500 mg = 1 tab(s), Oral, q6hr, X 7 day(s), # 28 tab(s), Refills(s) 0, Pharmacy: [facility], 162, cm, 05/09/24 14:21:00 EDT, Height/Length Dosing, 121.6, kg, 05/09/24 14:21:00 EDT, Weight Dosing penicillin V potassium, 500 mg = 1 tab(s), Tab, Oral, Once, Stop date 05/09/24 15:18:00 EDT, STAT, Start date 05/09/24 15:18:00 EDT, 05/09/24 15:18:00 EDT [facility] 06-18-2024 Evaluation + Plan noteExtracted from: Title:ED Note Author:Aleta Oliveira DO Date :01/13/24 Sore throat (J02.9: Acute ph aryngitis, unspecified) Orders: dexamethasone, 10 mg = 2.5 tab(s), Tab, Oral, Once, Stop date 01/13/24 0:11:00 EDT, STAT, Start date 01/13/24 0:11:00 EDT, 01/13/24 0:11:00 EDT Group A Strep by PCR Rapid Strep w/rfx [facility]06-18-2024 Hospital Discharge instructions Patient Education 01/13/2024 00:47:46 Sore Throat, Adsz-vg-Bfbh Sore Throat When you have a sore throat, your throat may feel: Tender. Burning. Irritated. Scratchy. Painful when you swallow. Painful when you talk. Many things can cause a sore throat, such as: An infection. Allergies. Dry air. Smoke or pollution. Radiation treatment for cancer. Gastroesophageal reflux disease (GERD). A tumor. A sore throat can be the first sign of another sickness. It can happen with other problems, like: Coughing. Sneezing. Fever. Swelling of the glands in the neck. Most sore throats go away without treatment. Follow these instructions at home: Medicines Take oyiw-omu-ogijjcs and prescription medicines only as told by your doctor. Children often get sore throats. Do not give your child aspirin. Use throat sprays to soothe your throat as told by your health care provider. Managing pain To help with pain: Sip warm liquids, such as broth, herbal tea, or warm water. Eat or drink cold or frozen liquids, such as frozen ice pops. Rinse your mouth (gargle) with a salt water mixture 3 4 times a day or as needed. ?To make salt water, dissolve 1 tsp (3 6 g) of salt in 1 cup (237 mL) of warm water. ?Do not swallow this mixture. Suck on hard candy or throat lozenges. Put a cool-mist humidifier in your bedroom at night. Sit in the bathroom with the door closed for 5 10 minutes while you run hot water in the shower. General instructions Do not smoke or use any products that contain nicotine or tobacco. If you need help quitting, ask your doctor. Get plenty of rest. Drink enough fluid to keep your pee (urine) pale yellow. Wash your hands often for at least 20 seconds with soap and water. If soap and water are not available, use hand bedspread folder. Contact a doctor if: You have a fever for more than 2 3 days. You keep having symptoms for more than 2 3 days. Your throat does not get better in 7 days. You have a fever and your symptoms suddenly get worse. Your child who is 3 months to 3 years old has a temperature of 102.2 F (39 C) or higher. Get help right away if: You have trouble breathing. You cannot swallow fluids, soft foods, or your spit. You have swelling in your throat or neck that gets worse. You feel like you may vomit (nauseous) and this feeling lasts a long time. You cannot stop vomiting. These symptoms may be an emergency. Get help right away. Call your local emergency services (911 int [place] Do not wait to see if the symptoms will go away. Do not drive yourself to the hospital. Summary A sore throat is a painful, burning, irritated, or scratchy throat. Many things can cause a sore throat. Take lzsy-vkc-ptcztze medicines only as told by your doctor. Get plenty of rest. Drink enough fluid to keep your pee (urine) pale yellow. Contact a doctor if your symptoms get worse or your sore throat does not get better within 7 days. This information is not intended to replace advice given to you by your health care provider. Make sure you discuss any questions you have with your health care provider. Document Revised: 10/10/2021 Document Reviewed: 10/10/2021 [employer] Patient Education 2022 [employer]. Follow Up Care 01/12/2024 23:47:01 With:DOREEN HA Address: [address] [place], [place] [id number] Business (1) When:01/16/2024 Comments:You can use ibuprofen, Tylenol every 6 hours as needed for pain. Please follow-up with your primarycare doctor next 2 to 3 days for further evaluation management. Please return to the ED for any newor worsening symptoms. [facility]06-12-2024 Evaluation + Plan noteExtracted from: Title:ED Note Author:Bi Galeana DO Date: Knee sprain (S83.90XA: Sprai n of unspecified site of unspecified knee, initial encounter) Orders: Immobilizer XR Knee Complete 4+ Views Right [facility]06-12-2024 Hospital Discharge instructions Patient Education 01/07/2024 00:39:45 How to Use a Knee Immobilizer How to Use a Knee Immobilizer A knee immobilizer is a device used to support and protect an injured or painful knee. You may alsohave to wear it after knee surgery. A knee immobilizer keeps your knee from moving or bending whileit is healing. Wear the immobilizer as told by your health care provider. Remove it only as told byyour health care provider. In general, your immobilizer should: Have straps, hooks, or tapes that fasten snugly around your leg. Not feel too tight or too loose. What are the risks? Generally, knee immobilizers are safe to wear. However, problems may occur, including: Skin irritation. This may lead to an infection, in rare cases. Making your condition worse. This could happen if you wear the immobilizer in the wrong way. How to use a knee immobilizer Different immobilizers will have different instructions for use. Your health care provider will show you or tell you: How to put on your immobilizer. How to adjust your immobilizer. When and how often to wear your immobilizer. How to remove your immobilizer. If you will need any assistive devices in addition to your immobilizer, such as crutches or a cane. Follow these instructions at home: Bathing If the immobilizer is not waterproof: ?Do not let it get wet. ?Cover it with a watertight covering when you take a bath or shower. If your health care provider says that you may remove the immobilizer: ?Take it off before bathing or showering. ?Check for any skin irritation. ?Use a towel to dry the area completely before you put the immobilizer back on. Managing pain, stiffness, and swelling Raise (elevate) the injured area above the level of your heart while you are sitting or lying down.Doing this reduces throbbing and swelling, and helps with healing. You can use pillows for support. Loosen the immobilizer if you notice symptoms or signs that it is too tight, such as: ?Swelling. ?Tingling in your toes. ?Numbness. ?Color change on your foot or ankle. ?More pain. Infection signs Check any irritations, incisions, or cuts on your skin under the immobilizer every day for signs ofinfection. Check for: More redness, swelling, or pain. Fluid or blood. Warmth. Pus or a bad smell. General instructions Keep the immobilizer clean and dry. Return to your normal activities as told by your health care provider. Ask your health care provider what activities are safe for you. Check the skin around the immobilizer every day. Tell your health care provider about any concerns. Follow your health care provider's instructions about whether you can put any weight on your injured leg. Use crutches or a cane as told. Keep all follow-up visits. This is important. Contact a health care provider if: Your knee immobilizer breaks or needs to be replaced. You have more pain or swelling in your knee, foot, or ankle. Your knee immobilizer is not helping. Your knee immobilizer makes your knee pain worse. You have any signs of infection of the skin under the immobilizer. Summary A knee immobilizer is used to support and protect an injured or painful knee. You may also have to wear it after knee surgery. A knee immobilizer keeps your knee from moving or bending while it is healing. Different immobilizers will have different instructions for use. Follow the instructions from your health care provider. Contact your health care provider if you have more swelling or pain, if your knee immobilizer breaks, if your knee immobilizer does not help your knee pain or makes pain worse, or if you have any signs of infection. This information is not intended to replace advice given to you by your health care provider. Make sure you discuss any questions you have with your health care provider. Document Revised: 04/19/2022 Document Reviewed: 04/19/2022 [employer] Patient Education 2022 [employer]. 01/07/2024 00:39:45 Knee Sprain, Adult Knee Sprain, Adult A knee sprain is a stretch or tear in a knee ligament. Knee ligaments are tissues that connect bones in the knee to each other. What are the causes? This condition often results from: A fall. An injury to the knee. What are the signs or symptoms? Symptoms of this condition include: Trouble straightening or bending the leg. Swelling in the knee. Bruising around the knee. Tenderness or pain in the knee. Muscle spasms around the knee. How is this diagnosed? This condition may be diagnosed based on: A physical exam. A history of what happened just before you started to have symptoms. Tests, including: ?An X-ray. This may be done to make sure no bones are broken. ?An MRI. This may be done to check if the ligament is torn. ?Stress testing of the knee. This may be done to check ligament damage. How is this treated? Treatment for this condition may involve: Keeping the knee still (immobilized) with a cast, brace, or splint. Applying ice to the knee. This helps with pain and swelling. Raising (elevating) the knee above the level of your heart when you are resting. This helps with pain and swelling. Taking medicine for pain. Doing exercises to prevent or limit permanent weakness or stiffness in your knee. Having surgery to reconnect the ligament to the bone or to reconstruct it. This may be needed if the ligament is completely torn. Follow these instructions at home: If you have a splint or brace: Wear it as told by your health care provider. Remove it only as told by your health care provider. Check the skin around it every day. Tell your health care provider about any concerns. Loosen it if your toes tingle, become numb, or turn cold and blue. Keep it clean and dry. If you have a cast: Do not stick anything inside it to scratch your skin. Doing that increases your risk of infection. Check the skin around it every day. Tell your health care provider about any concerns. You may put lotion on dry skin around the edges of the cast. Do not put lotion on the skin underneath the cast. Keep it clean and dry. Bathing If you have a splint, brace, or cast that is not waterproof: Do not let it get wet. Cover it with a watertight covering when you take a bath or a shower. Managing pain, stiffness, and swelling If directed, put ice on the injured area. To do this: ?If you have a removable splint or brace, remove it as told by your health care provider. ?Put ice in a plastic bag. ?Place a towel between your skin and the bag or between your cast and the bag. ?Leave the ice on for 20 minutes, 2 3 times a day. Move your toes often to reduce stiffness and swelling. Elevate the injured area above the level of your heart while you are sitting or lying down. General instructions Take wxmz-axr-cpwcpgb and prescription medicines only as told by your health care provider. Do not use any products that contain nicotine or tobacco, such as cigarettes, e- cigarettes, and chewing tobacco. These can delay healing. If you need help quitting, ask your health care provider. Do exercises as told by your health care provider. Keep all follow-up visits as told by your health care provider. This is important. Contact a health care provider if: You have pain that gets worse. The cast, brace, or splint does not fit right. The cast, brace, or splint gets damaged. Get help right away if: You cannot use your injured knee to support any of your body weight (cannot bear weight). You cannot move the injured joint. You cannot walk more than a few steps without pain or without your knee buckling. You have significant pain, swelling, or numbness in the leg below the cast, brace, or splint. Your foot or toes are numb, cold, or blue after loosening your splint or brace. Summary A knee sprain is a stretch or tear in a knee ligament that usually occurs as the result of a fall or injury. Treatment may involve immobilizing the knee with a cast, splint, or brace and then doing exercises. If the ligament is completely torn, it may require surgery to repair or replace the injured ligament. This information is not intended to replace advice given to you by your health care provider. Make sure you discuss any questions you have with your health care provider. Document Revised: 10/21/2022 Document Reviewed: 06/02/2020 [employer] Patient Education 2022 [employer]. Follow Up Care 2024 23:16:19 With:Khari Gomez Address: [address] [place] [id number] [facility] (1) When:01/10/2024 Comments:Call the office of your primary care doctor to arrange for follow-up within the above-stated timeframe. Follow-up with your primary care doctor about this ED visit. You should review your labs, imaging, and diagnoses from this ED visit with your primary care physician. There are occasionally non-emergent findings that require additional follow-up after your ED visit. If you were prescribed medications you should discuss possible side-effects and drug interactions with your pharmacist. Call 911 or go to the nearest Emergency Department if you develop any new or worsening symptoms.Rest, ice, elevate the knee. Continue to wear knee immobilizer if you have feeling of instability in the knee. Follow-up with orthopedic surgery. [facility]02-27-2024 Evaluation + Plan noteExtracted from: Title:ED Note Author:David MONDRAGON, Lukas Lemon te:09/23/23 Flu-like symptoms (R68.89: O ther general symptoms and signs) Vomiting (R11.10: Vomiting, unspecified) Orders: acetaminophen, 975 mg = 3 tab(s), Tab, Oral, Once, Stop date 09/23/23 11:04:00 EST, STAT, Start date 09/23/23 11:04:00 EST, 09/23/23 11:04:00 EST dextromethorphan-promethazine, 5 mL, Oral, q6hr for cough for 5 day(s), 200 mL, Refill(s) 0, [facility], 162, cm, 09/23/23 8:58:00 EST, Height/Length Dosing, 121.6, kg, 09/23/23 8:58:00 EST, Weight Dosing ondansetron, 4 mg = 1 tab(s), Tab-Dis, Oral, Once, Stop date 09/23/23 8:55:00 EST, STAT, Start date 09/23/23 8:55:00 EST, 09/23/23 8:55:00 EST ondansetron, 4 mg = 1 tab(s), Oral, TID, # 15 tab(s), Refills(s) 0, Pharmacy: [facility], 162, cm, 09/23/23 8:58:00 EST, Height/Length Dosing, 121.6, kg, 09/23/23 8:58:00 EST, Weight Dosing [facility]02-27-2024 Hospital Discharge instructions Patient Education 09/23/2023 11:27:04 Viral Illness, Adult Viral Illness, Adult Viruses are tiny germs that can get into a person's body and cause illness. There are many different types of viruses, and they cause many types of illness. Viral illnesses can range from mild to severe. They can affect various parts of the body. Short-term conditions that are caused by a virus include colds and the flu (influenza). Long-term conditions that are caused by a virus include herpes, shingles, and HIV (human immunodeficiency virus) infection. A few viruses have been linked to certain cancers. What are the causes? Many types of viruses can cause illness. Viruses invade cells in your body, multiply, and cause theinfected cells to work abnormally or . When these cells , they release more of the virus. When this happens, you develop symptoms of the illness, and the virus continues to spread to other cells. If the virus takes over the function of the cell, it can cause the cell to divide and grow out ofcontrol. This happens when a virus causes cancer. Different viruses get into the body in different ways. You can get a virus by: Swallowing food or water that has come in contact with the virus (is contaminated). Breathing in droplets that have been coughed or sneezed into the air by an infected person. Touching a surface that has been contaminated with the virus and then touching your eyes, nose, or mouth. Being bitten by an insect or animal that carries the virus. Having sexual contact with a person who is infected with the virus. Being exposed to blood or fluids that contain the virus, either through an open cut or during a transfusion. If a virus enters your body, your body's defense system (immune system) will try to fight the virus. You may be at higher risk for a viral illness if your immune system is weak. What are the signs or symptoms? You may have these symptoms, depending on the type of virus and the location of the cells that it invades: Cold and flu viruses: ?Fever. ?Headache. ?Sore throat. ?Muscle aches. ?Stuffy nose (nasal congestion). ?Cough. Digestive system (gastrointestinal) viruses: ?Fever. ?Pain in the abdomen. ?Nausea. ?Diarrhea. Liver viruses (hepatitis): ?Loss of appetite. ?Tiredness. ?Skin or the white parts of your eyes turning yellow (jaundice). Brain and spinal cord viruses: ?Fever. ?Headache. ?Stiff neck. ?Nausea and vomiting. ?Confusion or sleepiness. Skin viruses: ?Warts. ?Itching. ?Rash. Sexually transmitted viruses: ?Discharge. ?Swelling. ?Redness. ?Rash. How is this diagnosed? This condition may be diagnosed based on one or more of the following: Symptoms. Medical history. Physical exam. Blood test, sample of mucus from your lungs (sputum sample), stool sample, or a swab of body fluidsor a skin sore (lesion). How is this treated? Viruses can be hard to treat because they live within cells. Antibiotic medicines do not treat viruses because these medicines do not get inside cells. Treatment for a viral illness may include: Resting and drinking plenty of fluids. Medicines to relieve symptoms. These can include prle-vbt-pzaviwt medicine for pain and fever, medicines for cough or congestion, and medicines to relieve diarrhea. Antiviral medicines. These medicines are available only for certain types of viruses. Some viral illnesses can be prevented with vaccinations. A common example is the flu shot. Follow these instructions at home: Medicines Take ofcx-cea-seiapdf and prescription medicines only as told by your health care provider. If you were prescribed an antiviral medicine, take it as told by your health care provider. Do not stop taking the antiviral even if you start to feel better. Be aware of when antibiotics are needed and when they are not needed. Antibiotics do not treat viruses. You may get an antibiotic if your health care provider thinks that you may have, or are at riskfor, a bacterial infection and you have a viral infection. ?Do not ask for an antibiotic prescription if you have been diagnosed with a viral illness. Antibiotics will not make your illness go away faster. ?Frequently taking antibiotics when they are not needed can lead to antibiotic resistance. When this develops, the medicine no longer works against the bacteria that it normally fights. General instructions Drink enough fluids to keep your urine pale yellow. Rest as much as possible. Return to your normal activities as told by your health care provider. Ask your health care provider what activities are safe for you. Keep all follow-up visits as told by your health care provider. This is important. How is this prevented? To reduce your risk of viral illness: Wash your hands often with soap and water for at least 20 seconds. If soap and water are not available, use hand bedspread folder. Avoid touching your nose, eyes, and mouth, especially if you have not washed your hands recently. If anyone in your household has a viral infection, clean all household surfaces that may have been in contact with the virus. Use soap and hot water. You may also use bleach that you have added waterto (diluted). Stay away from people who are sick with symptoms of a viral infection. Do not share items such as toothbrushes and water bottles with other people. Keep your vaccinations up to date. This includes getting a yearly flu shot. Eat a healthy diet and get plenty of rest. Contact a health care provider if: You have symptoms of a viral illness that do not go away. Your symptoms come back after going away. Your symptoms get worse. Get help right away if you have: Trouble breathing. A severe headache or a stiff neck. Severe vomiting or pain in your abdomen. These symptoms may represent a serious problem that is an emergency. Do not wait to see if the symptoms will go away. Get medical help right away. Call your local emergency services (911 in the [place] Do not drive yourself to the hospital. Summary Viruses are types of germs that can get into a person's body and cause illness. Viral illnesses canrange from mild to severe. They can affect various parts of the body. Viruses can be hard to treat. There are medicines to relieve symptoms, and there are some antiviralmedicines. If you were prescribed an antiviral medicine, take it as told by your health care provider. Do not stop taking the antiviral even if you start to feel better. Contact a health care provider if you have symptoms of a viral illness that do not go away. This information is not intended to replace advice given to you by your health care provider. Make sure you discuss any questions you have with your health care provider. Document Revised: 11/27/2020 Document Reviewed: 05/23/2020 [employer] Patient Education 2022 [employer]. Follow Up Care 09/23/2023 08:36:00 With:DOREEN HA Address: [facility] [place] [address] [facility] (1) When:09/26/2023 11:03:08 [facility]01-27-2024 Hospital Discharge instructions Patient Education 08/22/2023 22:45:28 Otitis Media, Adult Otitis Media, Adult Otitis media occurs when there is inflammation and fluid in the middle ear with signs and symptoms of an acute infection. The middle ear is a part of the ear that contains bones for hearing as well as air that helps send sounds to the brain. When infected fluid builds up in this space, it causes pressure and can lead to an ear infection. The eustachian tube connects the middle ear to the back of the nose (nasopharynx) and normally allows air into the middle ear. If the eustachian tube becomes blocked, fluid can build up and become infected. What are the causes? This condition is caused by a blockage in the eustachian tube. This can be caused by mucus or by swelling of the tube. Problems that can cause a blockage include: A cold or other upper respiratory infection. Allergies. An irritant, such as tobacco smoke. Enlarged adenoids. The adenoids are areas of soft tissue located high in the back of the throat, behind the nose and the roof of the mouth. They are part of the body's defense system (immune system). A mass in the nasopharynx. Damage to the ear caused by pressure changes (barotrauma). What increases the risk? You are more likely to develop this condition if you: Smoke or are exposed to tobacco smoke. Have an opening in the roof of your mouth (cleft palate). Have gastroesophageal reflux. Have an immune system disorder. What are the signs or symptoms? Symptoms of this condition include: Ear pain. Fever. Decreased hearing. Tiredness (lethargy). Fluid leaking from the ear, if the eardrum is ruptured or has burst. Ringing in the ear. How is this diagnosed? This condition is diagnosed with a physical exam. During the exam, your health care provider will use an instrument called an otoscope to look in your ear and check for redness, swelling, and fluid. He or she will also ask about your symptoms. Your health care provider may also order tests, such as: A pneumatic otoscopy. This is a test to check the movement of the eardrum. It is done by squeezing a small amount of air into the ear. A tympanogram. This is a test that shows how well the eardrum moves in response to air pressure in the ear canal. It provides a graph for your health care provider to review. How is this treated? This condition can go away on its own within 3 5 days. But if the condition is caused by a bacterial infection and does not go away on its own, or if it keeps coming back, your health care provider may: Prescribe antibiotic medicine to treat the infection. Prescribe or recommend medicines to control pain. Follow these instructions at home: Take ulrp-zaz-obpikix and prescription medicines only as told by your health care provider. If you were prescribed an antibiotic medicine, take it as told by your health care provider. Do notstop taking the antibiotic even if you start to feel better. Keep all follow-up visits. This is important. Contact a health care provider if: You have bleeding from your nose. There is a lump on your neck. You are not feeling better in 5 days. You feel worse instead of better. Get help right away if: You have severe pain that is not controlled with medicine. You have swelling, redness, or pain around your ear. You have stiffness in your neck. A part of your face is not moving (paralyzed). The bone behind your ear (mastoid bone) is tender when you touch it. You develop a severe headache. Summary Otitis media is redness, soreness, and swelling of the middle ear, usually resulting in pain and decreased hearing. This condition can go away on its own within 3 5 days. If the problem does not go away in 3 5 days, your health care provider may give you medicines to treat the infection. If you were prescribed an antibiotic medicine, take it as told by your health care provider. Follow all instructions that were given to you by your health care provider. This information is not intended to replace advice given to you by your health care provider. Make sure you discuss any questions you have with your health care provider. Document Revised: 10/22/2021 Document Reviewed: 10/22/2021 [employer] Patient Education 2022 [employer]. Follow Up Care 08/22/2023 22:12:06 With:DOREEN HA Address: [facility] [address] [place] [address] [facility] (1) When:08/25/2023 Comments:Follow-up with your primary care provider in 3 to 5 days. If symptoms worsen, do not improve, or new symptoms arise please report back to emergency department for further evaluation. [facility]01-26-2024 Evaluation + Plan noteExtracted from: Title:ED Note Author:Miguelito Rubi PA-C te:08/22/23 Left otitis media (H66.92: O titis media, unspecified, left ear) Orders: amoxicillin-clavulanate, 1 tab(s), Oral, q12hr for 10 day(s), 20 tab(s), Refill(s) 0, [facility], 162, cm, 08/22/23 22:19:00 EST, Height/Length Dosing, 122.4, kg, 08/22/23 22:19:00 EST, Weight Dosing amoxicillin-clavulanate, 1 tab(s), Tab, Oral, Once, Stop date 08/22/23 22:24:00 EST, STAT, Start date 08/22/23 22:24:00 EST [facility]12-31-2023 Hospital Discharge instructions Patient Education 07/27/2023 21:45:13 Cellulitis, Adult, [place] Cellulitis, Adult Cellulitis is a skin infection. The infected area is often warm, red, swollen, and sore. It occurs most often in the arms and lower legs. It is very important to get treated for this condition. What are the causes? This condition is caused by bacteria. The bacteria enter through a break in the skin, such as a cut, burn, insect bite, open sore, or crack. What increases the risk? This condition is more likely to occur in people who: Have a weak body defense system (immune system). Have open cuts, vega, bites, or scrapes on the skin. Are older than 60 years of age. Have a blood sugar problem (diabetes). Have a long-lasting (chronic) liver disease (cirrhosis) or kidney disease. Are very overweight (obese). Have a skin problem, such as: ?Itchy rash (eczema). ?Slow movement of blood in the veins (venous stasis). ?Fluid buildup below the skin (edema). Have been treated with high-energy rays (radiation). Use IV drugs. What are the signs or symptoms? Symptoms of this condition include: Skin that is: ?Red. ?Streaking. ?Spotting. ?Swollen. ?Sore or painful when you touch it. ?Warm. A fever. Chills. Blisters. How is this diagnosed? This condition is diagnosed based on: Medical history. Physical exam. Blood tests. Imaging tests. How is this treated? Treatment for this condition may include: Medicines to treat infections or allergies. Home care, such as: ?Rest. ?Placing cold or warm cloths (compresses) on the skin. Hospital care, if the condition is very bad. Follow these instructions at home: Medicines Take vehh-dum-rvxpjvp and prescription medicines only as told by your doctor. If you were prescribed an antibiotic medicine, take it as told by your doctor. Do not stop taking it even if you start to feel better. General instructions Drink enough fluid to keep your pee (urine) pale yellow. Do not touch or rub the infected area. Raise (elevate) the infected area above the level of your heart while you are sitting or lying down. Place cold or warm cloths on the area as told by your doctor. Keep all follow-up visits as told by your doctor. This is important. Contact a doctor if: You have a fever. You do not start to get better after 1 2 days of treatment. Your bone or joint under the infected area starts to hurt after the skin has healed. Your infection comes back. This can happen in the same area or another area. You have a swollen bump in the area. You have new symptoms. You feel ill and have muscle aches and pains. Get help right away if: Your symptoms get worse. You feel very sleepy. You throw up (vomit) or have watery poop (diarrhea) for a long time. You see red streaks coming from the area. Your red area gets larger. Your red area turns dark in color. These symptoms may represent a serious problem that is an emergency. Do not wait to see if the symptoms will go away. Get medical help right away. Call your local emergency services (911 in the [place] Do not drive yourself to the hospital. Summary Cellulitis is a skin infection. The area is often warm, red, swollen, and sore. This condition is treated with medicines, rest, and cold and warm cloths. Take all medicines only as told by your doctor. Tell your doctor if symptoms do not start to get better after 1 2 days of treatment. This information is not intended to replace advice given to you by your health care provider. Make sure you discuss any questions you have with your health care provider. Document Revised: 04/25/2022 Document Reviewed: 04/25/2022 [employer] Patient Education 2022 [employer]. Follow Up Care 07/27/2023 21:00:37 With:DOREEN HA Address: [address] [place] [address]- [facility] (1) When:07/30/2023 21:23:55 Comments:Take the antibiotics twice a day and to you have completed the course. You can use the Zofran every6 hours as needed for nausea and vomiting. Follow-up with your primary care doctor in the next 2 to3 days. You can use warm compresses on the area to help with the infection and trying to get it to the surface and drain. Please return to ED for any worsening symptoms. [facility]12-31-2023 Evaluation + Plan noteExtracted from: Title:ED Note Author:Aleta Oliveira DO Date :07/27/23 Cellulitis (L03.90: Cellulit is, unspecified) Orders: ondansetron, 4 mg = 1 tab(s), Oral, q8hr, # 12 tab(s), Refills(s) 0, Pharmacy: [facility] #[facility], 163, cm, 07/27/23 21:11:00 EST, Height/Length Dosing, 123.4, kg, 07/27/23 21:11:00 EST, Weight Dosing ondansetron, 4 mg = 1 tab(s), Tab-Dis, Oral, Once, Stop date 07/27/23 21:22:00 EST, STAT, Start date 07/27/23 21:22:00 EST, 07/27/23 21:22:00 EST sulfamethoxazole-trimethoprim, 1 tab(s), Tab, Oral, Once, Stop date 07/27/23 21:22:00 EST, STAT, Start date 07/27/23 21:22:00 EST sulfamethoxazole-trimethoprim, 1 tab(s), Oral, BID, 20 tab(s), Refill(s) 0, [facility] #[facility], 163, cm, 07/27/23 21:11:00 EST, Height/Length Dosing, 123.4, kg, 07/27/23 21:11:00 EST, Weight Dosing [facility]12-29-2023 Hospital Discharge instructions Patient Education 07/25/2023 20:38:33 Cellulitis, Adult, Vwbq-mf-Fvfa Cellulitis, Adult Cellulitis is a skin infection. The infected area is often warm, red, swollen, and sore. It occurs most often in the arms and lower legs. It is very important to get treated for this condition. What are the causes? This condition is caused by bacteria. The bacteria enter through a break in the skin, such as a cut, burn, insect bite, open sore, or crack. What increases the risk? This condition is more likely to occur in people who: Have a weak body defense system (immune system). Have open cuts, vega, bites, or scrapes on the skin. Are older than 60 years of age. Have a blood sugar problem (diabetes). Have a long-lasting (chronic) liver disease (cirrhosis) or kidney disease. Are very overweight (obese). Have a skin problem, such as: ?Itchy rash (eczema). ?Slow movement of blood in the veins (venous stasis). ?Fluid buildup below the skin (edema). Have been treated with high-energy rays (radiation). Use IV drugs. What are the signs or symptoms? Symptoms of this condition include: Skin that is: ?Red. ?Streaking. ?Spotting. ?Swollen. ?Sore or painful when you touch it. ?Warm. A fever. Chills. Blisters. How is this diagnosed? This condition is diagnosed based on: Medical history. Physical exam. Blood tests. Imaging tests. How is this treated? Treatment for this condition may include: Medicines to treat infections or allergies. Home care, such as: ?Rest. ?Placing cold or warm cloths (compresses) on the skin. Hospital care, if the condition is very bad. Follow these instructions at home: Medicines Take ltvm-xzl-sccjhye and prescription medicines only as told by your doctor. If you were prescribed an antibiotic medicine, take it as told by your doctor. Do not stop taking it even if you start to feel better. General instructions Drink enough fluid to keep your pee (urine) pale yellow. Do not touch or rub the infected area. Raise (elevate) the infected area above the level of your heart while you are sitting or lying down. Place cold or warm cloths on the area as told by your doctor. Keep all follow-up visits as told by your doctor. This is important. Contact a doctor if: You have a fever. You do not start to get better after 1 2 days of treatment. Your bone or joint under the infected area starts to hurt after the skin has healed. Your infection comes back. This can happen in the same area or another area. You have a swollen bump in the area. You have new symptoms. You feel ill and have muscle aches and pains. Get help right away if: Your symptoms get worse. You feel very sleepy. You throw up (vomit) or have watery poop (diarrhea) for a long time. You see red streaks coming from the area. Your red area gets larger. Your red area turns dark in color. These symptoms may represent a serious problem that is an emergency. Do not wait to see if the symptoms will go away. Get medical help right away. Call your local emergency services (911 in the [place] Do not drive yourself to the hospital. Summary Cellulitis is a skin infection. The area is often warm, red, swollen, and sore. This condition is treated with medicines, rest, and cold and warm cloths. Take all medicines only as told by your doctor. Tell your doctor if symptoms do not start to get better after 1 2 days of treatment. This information is not intended to replace advice given to you by your health care provider. Make sure you discuss any questions you have with your health care provider. Document Revised: 04/25/2022 Document Reviewed: 04/25/2022 [employer] Patient Education 2022 [employer]. Follow Up Care 07/25/2023 20:22:08 With:DOREEN HA Address: [facility] [address], [place] [address] Business (1) When:07/28/2023 20:34:28 Comments:Follow-up with your primary care provider in 3 to 5 days. If symptoms worsen, do not improve, or new symptoms arise please report back to emergency department for further evaluation. [facility]12-17-2023 Hospital Discharge instructions Patient Education 07/13/2023 18:03:08 Vomiting, Adult Vomiting, Adult Vomiting is when stomach contents forcefully come out of the mouth. Many people notice nausea before vomiting. Vomiting can make you feel weak and cause you to become dehydrated. Dehydration can make you feel tired and thirsty, cause you to have a dry mouth, and decrease how often you urinate. Older adults and people who have other diseases or a weak body defense system (immune system) are at higher risk for dehydration. It is important to treat vomiting as told by your health care provider. Follow these instructions at home: Watch your symptoms for any changes. Tell your health care provider about them. Eating and drinking Follow these recommendations as told by your health care provider: Take an oral rehydration solution (ORS). This is a drink that is sold at pharmacies and retail stores. Eat bland, tqtj-xh-xotojf foods in small amounts as you are able. These foods include bananas, applesauce, rice, lean meats, toast, and crackers. Drink clear fluids slowly and in small amounts as you are able. Clear fluids include water, ice chips, low-calorie sports drinks, and fruit juice that has water added (diluted fruit juice). Avoid drinking fluids that contain a lot of sugar or caffeine, such as energy drinks, sports drinks, and soda. Avoid alcohol. Avoid spicy or fatty foods. General instructions Wash your hands often using soap and water for at least 20 seconds. If soap and water are not available, use hand bedspread folder. Make sure that everyone in your household washes their hands frequently. Take rqzm-fgw-verbgbv and prescription medicines only as told by your health care provider. Rest at home while you recover. Watch your condition for any changes. Keep all follow-up visits. This is important. Contact a health care provider if: Your vomiting gets worse. You have new symptoms. You have a fever. You cannot drink fluids without vomiting. You feel light-headed or dizzy. You have a headache. You have muscle cramps. You have a rash. You have pain while urinating. Get help right away if: You have pain in your chest, neck, arm, or jaw. Your heart is beating very quickly. You have trouble breathing or you are breathing very quickly. You feel extremely weak or you faint. Your skin feels cold and clammy. You feel confused. You have persistent vomiting. You have vomit that is bright red or looks like black coffee grounds. You have stools (feces) that are bloody or black, or stools that look like tar. You have a severe headache, a stiff neck, or both. You have severe pain, cramping, or bloating in your abdomen. You have signs of dehydration, such as: ?Dark urine, very little urine, or no urine. ?Cracked lips. ?Dry mouth. ?Sunken eyes. ?Sleepiness. ?Weakness. These symptoms may be an emergency. Get help right away. Call 911. Do not wait to see if the symptoms will go away. Do not drive yourself to the hospital. Summary Vomiting is when stomach contents forcefully come out of the mouth. Vomiting can cause you to become dehydrated. It is important to treat vomiting as told by your health care provider. Follow your health care provider's instructions about eating and drinking. Wash your hands often using soap and water for at least 20 seconds. If soap and water are not available, use hand bedspread folder. Watch your condition for any changes and for signs of dehydration. Keep all follow-up visits. This is important. This information is not intended to replace advice given to you by your health care provider. Make sure you discuss any questions you have with your health care provider. Document Revised: 01/18/2022 Document Reviewed: 01/18/2022 [employer] Patient Education 2022 [employer]. Follow Up Care 07/13/2023 15:24:31 With:DOREEN HA Address: [address] [place] [address] [place] [address] Business (1) When:Within 3 Day(s) [facility]12-17-2023 Evaluation + Plan note Diagnostic Tests Pending * Group A Strep by PCR 07/13/23 [facility]09-28-2023 Evaluation + Plan noteExtracted from: Title:ED Note Author:Lukas Hernandez PA-C te:04/24/23 Pharyngitis (J02.9: Acute ph aryngitis, unspecified) Orders: azithromycin, = 1 packet(s), Oral, As Directed, as directed on package labeling, X 5 day(s), # 6 tab(s), Refills(s) 0, Pharmacy: [facility], 163, cm, 04/24/23 9:56:00 EDT, Height/Length Dosing, 118, kg, 04/24/23 9:56:00 EDT, Weight Dosing dexamethasone, 10 mg = 2.5 mL, Injection, Oral, Once, Stop date 04/24/23 10:14:00 EDT, STAT, Start date 04/24/23 10:14:00 EDT, 04/24/23 10:14:00 EDT [facility]09-28-2023 Hospital Discharge instructions Patient Education 04/24/2023 10:56:30 Pharyngitis Pharyngitis Pharyngitis is inflammation of the throat (pharynx). It is a very common cause of sore throat. Pharyngitis can be caused by a bacteria, but it is usually caused by a virus. Most cases of pharyngitis get better on their own without treatment. What are the causes? This condition may be caused by: Infection by viruses (viral). Viral pharyngitis spreads easily from person to person (is contagious) through coughing, sneezing, and sharing of personal items or utensils such as cups, forks, spoons,and toothbrushes. Infection by bacteria (bacterial). Bacterial pharyngitis may be spread by touching the nose or faceafter coming in contact with the bacteria, or through close contact, such as kissing. Allergies. Allergies can cause buildup of mucus in the throat (post-nasal drip), leading to inflammation and irritation. Allergies can also cause blocked nasal passages, forcing breathing through themouth, which dries and irritates the throat. What increases the risk? You are more likely to develop this condition if: You are 5 24 years old. You are exposed to crowded environments such as daycare, school, or dormitory living. You live in a cold climate. You have a weakened disease-fighting (immune) system. What are the signs or symptoms? Symptoms of this condition vary by the cause. Common symptoms of this condition include: Sore throat. Fatigue. Low-grade fever. Stuffy nose (nasal congestion) and cough. Headache. Other symptoms may include: Glands in the neck (lymph nodes) that are swollen. Skin rashes. Plaque-like film on the throat or tonsils. This is often a symptom of bacterial pharyngitis. Vomiting. Red, itchy eyes (conjunctivitis). Loss of appetite. Joint pain and muscle aches. Enlarged tonsils. How is this diagnosed? This condition may be diagnosed based on your medical history and a physical exam. Your health careprovider will ask you questions about your illness and your symptoms. A swab of your throat may be done to check for bacteria (rapid strep test). Other lab tests may also be done, depending on the suspected cause, but these are rare. How is this treated? Many times, treatment is not needed for this condition. Pharyngitis usually gets better in 3 4 dayswithout treatment. Bacterial pharyngitis may be treated with antibiotic medicines. Follow these instructions at home: Medicines Take yhta-eyj-vlhcwqc and prescription medicines only as told by your health care provider. If you were prescribed an antibiotic medicine, take it as told by your health care provider. Do notstop taking the antibiotic even if you start to feel better. Use throat sprays to soothe your throat as told by your health care provider. Children can get pharyngitis. Do not give your child aspirin because of the association with Maritza'ssyndrome. Managing pain To help with pain, try: Sipping warm liquids, such as broth, herbal tea, or warm water. Eating or drinking cold or frozen liquids, such as frozen ice pops. Gargling with a mixture of salt and water 3 4 times a day or as needed. To make salt water, completely dissolve 1 tsp (3 6 g) of salt in 1 cup (237 mL) of warm water. Sucking on hard candy or throat lozenges. Putting a cool-mist humidifier in your bedroom at night to moisten the air. Sitting in the bathroom with the door closed for 5 10 minutes while you run hot water in the shower. General instructions Do not use any products that contain nicotine or tobacco. These products include cigarettes, chewing tobacco, and vaping devices, such as e-cigarettes. If you need help quitting, ask your health careprovider. Rest as told by your health care provider. Drink enough fluid to keep your urine pale yellow. How is this prevented? To help prevent becoming infected or spreading infection: Wash your hands often with soap and water for at least 20 seconds. If soap and water are not available, use hand bedspread folder. Do not touch your eyes, nose, or mouth with unwashed hands, and wash hands after touching these areas. Do not share cups or eating utensils. Avoid close contact with people who are sick. Contact a health care provider if: You have large, tender lumps in your neck. You have a rash. You cough up green, yellow-brown, or bloody mucus. Get help right away if: Your neck becomes stiff. You drool or are unable to swallow liquids. You cannot drink or take medicines without vomiting. You have severe pain that does not go away, even after you take medicine. You have trouble breathing, and it is not caused by a stuffy nose. You have new pain and swelling in your joints such as the knees, ankles, wrists, or elbows. These symptoms may represent a serious problem that is an emergency. Do not wait to see if the symptoms will go away. Get medical help right away. Call your local emergency services (911 in the [place] Do not drive yourself to the hospital. Summary Pharyngitis is redness, pain, and swelling (inflammation) of the throat (pharynx). While pharyngitis can be caused by a bacteria, the most common causes are viral. Most cases of pharyngitis get better on their own without treatment. Bacterial pharyngitis is treated with antibiotic medicines. This information is not intended to replace advice given to you by your health care provider. Make sure you discuss any questions you have with your health care provider. Document Revised: 10/10/2021 Document Reviewed: 10/10/2021 [employer] Patient Education 2022 [employer]. Follow Up Care 04/24/2023 09:33:19 With:Daniella Floyd Address: [address] [place] [phone] Business (1) When:04/27/2023 10:16:16 [facility]08-03-2023 Evaluation + Plan noteExtracted from: Title:ED Note Author:Bi Galeana DO Date: Pain in back (M54.9: [place], unspecified) Orders: methylPREDNISolone, = 1 packet(s), Oral, As Directed, as directed on package labeling, X 6 day(s), # 21 tab(s), Refills(s) 0, Pharmacy: [id number], 163, cm, 02/27/23 10:56:00 EDT, Height/Length Dosing, 118, kg, 02/27/23 10:56:00 EDT, Weight Dosing [facility]08-03-2023 Hospital Discharge instructions Patient Education 02/27/2023 11:02:10 Back Injury Prevention Back Injury Prevention Back injuries can be very painful. They can also be difficult to heal. After having one back injury, you are more likely to have another. It is important to learn how to avoid injuring or re-injuringyour back. The following tips can help you prevent a back injury. What actions can I take to prevent back injuries? Nutrition changes Talk with your health care provider about your overall diet, and especially about foods that strengthen your bones. Ask your health care provider how much calcium and vitamin D you need each day. These nutrients help to prevent weakening of the bones (osteoporosis). Osteoporosis can cause broken (fractured) bones,which lead to back pain. Eat foods that are good sources of calcium. These include dairy products, green leafy vegetables, and products that have had calcium added to them (are fortified). Eat foods that are good sources of vitamin D. These include milk and foods that are fortified with vitamin D. If needed, take supplements and vitamins as directed by your health care provider. Physical fitness Physical fitness strengthens your bones and your muscles. It also increases your balance and strength. Exercise for 30 minutes a day on most days of the week, or as directed by your health care provider. Make sure to: ?Do aerobic exercises, such as walking, jogging, biking, or swimming. ?Do exercises that increase balance and strength, such as paulie chi and yoga. These can decrease yourrisk of falling and injuring your back. ?Do stretching exercises to help with flexibility. ?Develop strong abdominal muscles. Your abdominal muscles provide a lot of the support that your back needs. Maintain a healthy weight. This helps to decrease your risk of a back injury. Good posture Prevent back injuries by developing and maintaining a good posture. To do this successfully: Sit up and stand up straight. Avoid leaning forward when you sit or hunching over when you stand. Choose chairs that have good low-back (lumbar) support. If you work at a desk, sit close to it so you do not need to lean over. Keep your chin tucked in. Keep your neck drawn back, and keep your elbows bent at a right angle. Sit high and close to the steering wheel when you drive. Add lumbar support to your car seat, if needed. Avoid sitting or standing in one position for very long. Take breaks to get up, stretch, and walk around at least one time every hour. Take breaks every hour if you are driving for long periods of time. Sleep on your side with your knees slightly bent, or sleep on your back with a pillow under your knees. Keep your head and neck in a straight line with your spine (neutral position) when using electronicequipment like smartphones or tablets. To do this: ?Raise your smartphone or tablet to look at it instead of bending your head or neck to look down. ?Put the smartphone or tablet at the level of your face while looking at the screen. Lifting, twisting, and reaching Back injuries are more likely to occur when carrying loads and bending or twisting at the same time. When you bend and lift, or reach for items that are high up on shelves, use positions that put less stress on your back. Heavy lifting ?Avoid heavy lifting, especially the kind of heavy lifting that is repetitive. If you must do heavylifting: ?Stretch before lifting. ?Work slowly. ?Rest between lifts. ?Use a tool such as a cart or a wyatt to move objects. ?Make several small trips instead of carrying one heavy load. ?Ask for help when you need it, especially when moving big or heavy objects. ?Follow these steps when lifting: ?Stand with your feet shoulder-width apart. ?Get as close to the object as you can. Do not try to pear picker a heavy object that is far from your body. ?Use handles or lifting straps if they are available. ?Bend at your knees. Squat down, but keep your heels off the floor. ?Keep your shoulders pulled back, your chin tucked in, and your back straight. ?Lift the object slowly while you tighten the muscles in your legs, abdomen, and buttocks. Keep theobject as close to the center of your body as possible. ?Follow these steps when putting down a heavy load: ?Stand with your feet shoulder-width apart. ?Lower the object slowly while you tighten the muscles in your legs, abdomen, and buttocks. Keep the object as close to the center of your body as possible. ?Keep your shoulders pulled back, your chin tucked in, and your back straight. ?Bend at your knees. Squat down, but keep your heels off the floor. ?Use handles or lifting straps if they are available. Twisting and reaching ?Avoid lifting heavy objects above your waist. ?Do not twist at your waist while you are lifting or carrying a load. If you need to turn, move your feet. ?Do not bend over without bending at your knees. ?Avoid reaching over your head, across a table, or for an object on a high surface. Other things to do Avoid wet floors and icy ground. Keep sidewalks clear of ice to prevent falls. Do not sleep on a mattress that is too soft or too hard. Put heavier objects on shelves at waist level, and put instrumentation technician objects on lower or higher shelves. Find ways to decrease your stress, such as by exercising, getting a massage, or practicing relaxation techniques. Stress can build up in your muscles. Tense muscles are more vulnerable to injury. Talk with your health care provider if you feel anxious or depressed. These conditions can make back pain worse. Wear flat heeled shoes with cushioned soles. Use both shoulder straps when carrying a backpack. Do not use any products that contain nicotine or tobacco. These products include cigarettes, chewing tobacco, and vaping devices, such as e-cigarettes. If you need help quitting, ask your health careprovider. Summary Back injuries can be very painful and difficult to heal. You can prevent injuring or re-injuring your back by making nutrition changes, working on being physically fit, developing a good posture, and lifting heavy objects in a safe way. Ask your health care provider how much calcium and vitamin D you need each day. These nutrients help to prevent weakening of the bones (osteoporosis). This information is not intended to replace advice given to you by your health care provider. Make sure you discuss any questions you have with your health care provider. Document Revised: 11/05/2021 Document Reviewed: 11/05/2021 [employer] Patient Education 2022 [employer] 02/27/2023 11:02:10 Back Exercises Back Exercises The following exercises strengthen the muscles that help to support the trunk (torso) and back. They also help to keep the lower back flexible. Doing these exercises can help to prevent or lessen existing low back pain. If you have back pain or discomfort, try doing these exercises 2 3 times each day or as told by your health care provider. As your pain improves, do them once each day, but increase the number of times that you repeat the steps for each exercise (do more repetitions). To prevent the recurrence of back pain, continue to do these exercises once each day or as told by your health care provider. Do exercises exactly as told by your health care provider and adjust them as directed. It is normalto feel mild stretching, pulling, tightness, or discomfort as you do these exercises, but you should stop right away if you feel sudden pain or your pain gets worse. Exercises Single knee to chest Repeat these steps 3 5 times for each le.Lie on your back on a firm bed or the floor with your legs extended. 2.Bring one knee to your chest. Your other leg should stay extended and in contact with the floor. 3.Hold your knee in place by grabbing your knee or thigh with both hands and hold. 4.Pull on your knee until you feel a gentle stretch in your lower back or buttocks. 5.Hold the stretch for 10 30 seconds. 6.Slowly release and straighten your leg. Pelvic tilt Repeat these steps 5 10 times: 1.Lie on your back on a firm bed or the floor with your legs extended. 2.Bend your knees so they are pointing toward the ceiling and your feet are flat on the floor. 3.Tighten your lower abdominal muscles to press your lower back against the floor. This motion willtilt your pelvis so your tailbone points up toward the ceiling instead of pointing to your feet or the floor. 4.With gentle tension and even breathing, hold this position for 5 10 seconds. Cat-cow Repeat these steps until your lower back becomes more flexible: 1.Get into a qzkxg-cct-laboh position on a firm bed or the floor. Keep your hands under your shoulders, and keep your knees under your hips. You may place padding under your knees for comfort. 2.Let your head hang down toward your chest. Contract your abdominal muscles and point your tailbone toward the floor so your lower back becomes rounded like the back of a cat. 3.Hold this position for 5 seconds. 4.Slowly lift your head, let your abdominal muscles relax, and point your tailbone up toward the ceiling so your back forms a sagging arch like the back of a cow. 5.Hold this position for 5 seconds. Press-ups Repeat these steps 5 10 times: 1.Lie on your abdomen (face-down) on a firm bed or the floor. 2.Place your palms near your head, about shoulder-width apart. 3.Keeping your back as relaxed as possible and keeping your hips on the floor, slowly straighten your arms to raise the top half of your body and lift your shoulders. Do not use your back muscles to raise your upper torso. You may adjust the placement of your hands to make yourself more comfortable. 4.Hold this position for 5 seconds while you keep your back relaxed. 5.Slowly return to lying flat on the floor. Bridges Repeat these steps 10 times: 1.Lie on your back on a firm bed or the floor. 2.Bend your knees so they are pointing toward the ceiling and your feet are flat on the floor. Yourarms should be flat at your sides, next to your body. 3.Tighten your buttocks muscles and lift your buttocks off the floor until your waist is at almost the same height as your knees. You should feel the muscles working in your buttocks and the back of your thighs. If you do not feel these muscles, slide your feet 1 2 inches (2.5 5 cm) farther away from your buttocks. 4.Hold this position for 3 5 seconds. 5.Slowly lower your hips to the starting position, and allow your buttocks muscles to relax completely. If this exercise is too easy, try doing it with your arms crossed over your chest. Abdominal crunches Repeat these steps 5 10 times: 1.Lie on your back on a firm bed or the floor with your legs extended. 2.Bend your knees so they are pointing toward the ceiling and your feet are flat on the floor. 3.Cross your arms over your chest. 4.Tip your chin slightly toward your chest without bending your neck. 5.Tighten your abdominal muscles and slowly raise your torso high enough to lift your shoulder blades a tiny bit off the floor. Avoid raising your torso higher than that because it can put too much stress on your lower back and does not help to strengthen your abdominal muscles. 6.Slowly return to your starting position. Back lifts Repeat these steps 5 10 times: 1.Lie on your abdomen (face-down) with your arms at your sides, and rest your forehead on the floor. 2.Tighten the muscles in your legs and your buttocks. 3.Slowly lift your chest off the floor while you keep your hips pressed to the floor. Keep the backof your head in line with the curve in your back. Your eyes should be looking at the floor. 4.Hold this position for 3 5 seconds. 5.Slowly return to your starting position. Contact a health care provider if: Your back pain or discomfort gets much worse when you do an exercise. Your worsening back pain or discomfort does not lessen within 2 hours after you exercise. If you have any of these problems, stop doing these exercises right away. Do not do them again unless your health care provider says that you can. Get help right away if: You develop sudden, severe back pain. If this happens, stop doing the exercises right away. Do not do them again unless your health care provider says that you can. This information is not intended to replace advice given to you by your health care provider. Make sure you discuss any questions you have with your health care provider. Document Revised: 01/08/2022 Document Reviewed: 09/26/2021 [employer] Patient Education 2022 [employer] 02/27/2023 11:02:10 Acute Back Pain, Adult Acute Back Pain, Adult Acute back pain is sudden and usually short-lived. It is often caused by an injury to the muscles and tissues in the back. The injury may result from: A muscle, tendon, or ligament getting overstretched or torn. Ligaments are tissues that connect bones to each other. Lifting something improperly can cause a back strain. Wear and tear (degeneration) of the spinal disks. Spinal disks are circular tissue that provide cushioning between the bones of the spine (vertebrae). Twisting motions, such as while playing sports or doing yard work. A hit to the back. Arthritis. You may have a physical exam, lab tests, and imaging tests to find the cause of your pain. Acute back pain usually goes away with rest and home care. Follow these instructions at home: Managing pain, stiffness, and swelling Take bgax-qve-hecnawu and prescription medicines only as told by your health care provider. Treatment may include medicines for pain and inflammation that are taken by mouth or applied to the skin, or muscle relaxants. Your health care provider may recommend applying ice during the first 24 48 hours after your pain starts. To do this: ?Put ice in a plastic bag. ?Place a towel between your skin and the bag. ?Leave the ice on for 20 minutes, 2 3 times a day. ?Remove the ice if your skin turns bright red. This is very important. If you cannot feel pain, heat, or cold, you have a greater risk of damage to the area. If directed, apply heat to the affected area as often as told by your health care provider. Use theheat source that your health care provider recommends, such as a moist heat pack or a heating pad. ?Place a towel between your skin and the heat source. ?Leave the heat on for 20 30 minutes. ?Remove the heat if your skin turns bright red. This is especially important if you are unable to feel pain, heat, or cold. You have a greater risk of getting burned. Activity Do not stay in bed. Staying in bed for more than 1 2 days can delay your recovery. Sit up and stand up straight. Avoid leaning forward when you sit or hunching over when you stand. ?If you work at a desk, sit close to it so you do not need to lean over. Keep your chin tucked in. Keep your neck drawn back, and keep your elbows bent at a 90-degree angle (right angle). ?Sit high and close to the steering wheel when you drive. Add lower back (lumbar) support to your car seat, if needed. Take short walks on even surfaces as soon as you are able. Try to increase the length of time you walk each day. Do not sit, drive, or manufacturing shift supervisor one place for more than 30 minutes at a time. Sitting or standing for long periods of time can put stress on your back. Do not drive or use heavy machinery while taking prescription pain medicine. Use proper lifting techniques. When you bend and lift, use positions that put less stress on your back: ?Bend your knees. ?Keep the load close to your body. ?Avoid twisting. Exercise regularly as told by your health care provider. Exercising helps your back heal faster andhelps prevent back injuries by keeping muscles strong and flexible. Work with a physical therapist to make a safe exercise program, as recommended by your health care provider. Do any exercises as told by your physical therapist. Lifestyle Maintain a healthy weight. Extra weight puts stress on your back and makes it difficult to have good posture. Avoid activities or situations that make you feel anxious or stressed. Stress and anxiety increase muscle tension and can make back pain worse. Learn ways to manage anxiety and stress, such as through exercise. General instructions Sleep on a firm mattress in a comfortable position. Try lying on your side with your knees slightlybent. If you lie on your back, put a pillow under your knees. Keep your head and neck in a straight line with your spine (neutral position) when using electronicequipment like smartphones or pads. To do this: ?Raise your smartphone or pad to look at it instead of bending your head or neck to look down. ?Put the smartphone or pad at the level of your face while looking at the screen. Follow your treatment plan as told by your health care provider. This may include: ?Cognitive or behavioral therapy. ?Acupuncture or massage therapy. ?Meditation or yoga. Contact a health care provider if: You have pain that is not relieved with rest or medicine. You have increasing pain going down into your legs or buttocks. Your pain does not improve after 2 weeks. You have pain at night. You lose weight without trying. You have a fever or chills. You develop nausea or vomiting. You develop abdominal pain. Get help right away if: You develop new bowel or bladder control problems. You have unusual weakness or numbness in your arms or legs. You feel faint. These symptoms may represent a serious problem that is an emergency. Do not wait to see if the symptoms will go away. Get medical help right away. Call your local emergency services (911 in the [place] Do not drive yourself to the hospital. Summary Acute back pain is sudden and usually short-lived. Use proper lifting techniques. When you bend and lift, use positions that put less stress on your back. Take dtcy-uza-jqxduiq and prescription medicines only as told by your health care provider, and apply heat or ice as told. This information is not intended to replace advice given to you by your health care provider. Make sure you discuss any questions you have with your health care provider. Document Revised: 10/05/2021 Document Reviewed: 10/05/2021 [employer] Patient Education 2022 [employer] Follow Up Care 02/27/2023 10:50:37 With:ORLANDO PACE Address: [address] [place] [address]- When:03/02/2023 11:01:33 Comments:Call the office of your primary care doctor to arrange for follow-up within the above-stated timeframe. Follow-up with your primary care doctor about this ED visit. You should review your labs, imaging, and diagnoses from this ED visit with your primary care physician. There are occasionally non-emergent findings that require additional follow-up after your ED visit. If you were prescribed medications you should discuss possible side-effects and drug interactions with your pharmacist. Call 911 or go to the nearest Emergency Department if you develop any new or worsening symptoms.Seek immediate medical attention if you develop: increasing pain, numbness, tingling, weakness, loss of motion inyour arms or legs, loss of control of your urine or stool, fever, abdominal pain, chest pain, shortness of breath, or any new or worsening symptoms. [facility]06-20-2023 Evaluation + Plan noteExtracted from: Title:ED Note Author:Nabila Jane Date: Neck muscle spasm (M62.838: Other muscle spasm) Neck pain (M54.2: Cervicalgia) Orders: methocarbamol, 750 mg = 1 tab(s), Oral, TID, X 7 day(s), # 21 tab(s), Refills(s) 0, Pharmacy: [facility], 160, cm, 01/14/23 10:35:00 EDT, Height/Length Dosing, 121, kg, 01/14/23 10:35:00 EDT, Weight Dosing naproxen, 500 mg = 1 tab(s), Oral, BID, Take one tab by mouth two times a day, # 14 tab(s), Refills(s) 0, Pharmacy: [facility], 160, cm, 01/14/23 10:35:00 EDT, Height/Length Dosing, 121, kg, 01/14/23 10:35:00 EDT, Weight Dosing XR Spine Cervical 2 or 3 Views [facility]06-20-2023 Hospital Discharge instructions Patient Education 01/14/2023 11:31:32 Neck Exercises Neck Exercises Ask your health care provider which exercises are safe for you. Do exercises exactly as told by your health care provider and adjust them as directed. It is normal to feel mild stretching, pulling, tightness, or discomfort as you do these exercises. Stop right away if you feel sudden pain or your pain gets worse. Do not begin these exercises until told by your health care provider. Neck exercises can be important for many reasons. They can improve strength and maintain flexibility in your neck, which will help your upper back and prevent neck pain. Stretching exercises Rotation neck stretching 1.Sit in a chair or stand up. 2.Place your feet flat on the floor, shoulder-width apart. 3.Slowly turn your head (rotate) to the right until a slight stretch is felt. Turn it all the way to the right so you can look over your right shoulder. Do not tilt or tip your head. 4.Hold this position for 10 30 seconds. 5.Slowly turn your head (rotate) to the left until a slight stretch is felt. Turn it all the way tothe left so you can look over your left shoulder. Do not tilt or tip your head. 6.Hold this position for 10 30 seconds. Repeat times. Complete this exercise times a day. Neck retraction 1.Sit in a sturdy chair or stand up. 2.Look straight ahead. Do not bend your neck. 3.Use your fingers to push your chin backward (retraction). Do not bend your neck for this movement. Continue to face straight ahead. If you are doing the exercise properly, you will feel a slight sensation in your throat and a stretch at the back of your neck. 4.Hold the stretch for 1 2 seconds. Repeat times. Complete this exercise times a day. Strengthening exercises Neck press 1.Lie on your back on a firm bed or on the floor with a pillow under your head. 2.Use your neck muscles to push your head down on the pillow and straighten your spine. 3.Hold the position as well as you can. Keep your head facing up (in a neutral position) and your chin tucked. 4.Slowly count to 5 while holding this position. Repeat times. Complete this exercise times a day. Isometrics These are exercises in which you strengthen the muscles in your neck while keeping your neck still (isometrics). 1.Sit in a supportive chair and place your hand on your forehead. 2.Keep your head and face facing straight ahead. Do not flex or extend your neck while doing isometrics. 3.Push forward with your head and neck while pushing back with your hand. Hold for 10 seconds. 4.Do the sequence again, this time putting your hand against the back of your head. Use your head and neck to push backward against the hand pressure. 5.Finally, do the same exercise on either side of your head, pushing sideways against the pressure of your hand. Repeat times. Complete this exercise times a day. Prone head lifts 1.Lie face-down (prone position), resting on your elbows so that your chest and upper back are raised. 2.Start with your head facing downward, near your chest. Position your chin either on or near your chest. 3.Slowly lift your head upward. Lift until you are looking straight ahead. Then continue lifting your head as far back as you can comfortably stretch. 4.Hold your head up for 5 seconds. Then slowly lower it to your starting position. Repeat times. Complete this exercise times a day. Supine head lifts 1.Lie on your back (supine position), bending your knees to point to the ceiling and keeping your feet flat on the floor. 2.Lift your head slowly off the floor, raising your chin toward your chest. 3.Hold for 5 seconds. Repeat times. Complete this exercise times a day. Scapular retraction 1.Stand with your arms at your sides. Look straight ahead. 2.Slowly pull both shoulders (scapulae) backward and downward (retraction) until you feel a stretchbetween your shoulder blades in your upper back. 3.Hold for 10 30 seconds. 4.Relax and repeat. Repeat times. Complete this exercise times a day. Contact a health care provider if: Your neck pain or discomfort gets worse when you do an exercise. Your neck pain or discomfort does not improve within 2 hours after you exercise. If you have any of these problems, stop exercising right away. Do not do the exercises again unlessyour health care provider says that you can. Get help right away if: You develop sudden, severe neck pain. If this happens, stop exercising right away. Do not do the exercises again unless your health care provider says that you can. This information is not intended to replace advice given to you by your health care provider. Make sure you discuss any questions you have with your health care provider. Document Revised: 01/08/2022 Document Reviewed: 01/08/2022 [employer] Patient Education 2022 [employer]. 01/14/2023 11:31:32 Muscle Cramps and Spasms, Xgtz-cr-Qwwv Muscle Cramps and Spasms Muscle cramps and spasms are when muscles tighten by themselves. They usually get better within minutes. Muscle cramps are painful. They are usually stronger and last longer than muscle spasms. Muscle spasms may or may not be painful. They can last a few seconds or much longer. Cramps and spasms can affect any muscle, but they occur most often in the calf muscles of the leg. They are usually not caused by a serious problem. In many cases, the cause is not known. Some commoncauses include: Doing more physical work or exercise than your body is ready for. Using the muscles too much (overuse) by repeating certain movements too many times. Staying in a certain position for a long time. Playing a sport or doing an activity without preparing properly. Using bad form or technique while playing a sport or doing an activity. Not having enough water in your body (dehydration). Injury. Side effects of some medicines. Low levels of the salts and minerals in your blood (electrolytes), such as low potassium or calcium. Follow these instructions at home: Managing pain and stiffness Massage, stretch, and relax the muscle. Do this for many minutes at a time. If told, put heat on tight or tense muscles as often as told by your doctor. Use the heat source that your doctor recommends, such as a moist heat pack or a heating pad. ?Place a towel between your skin and the heat source. ?Leave the heat on for 20 30 minutes. ?Remove the heat if your skin turns bright red. This is very important if you are not able to feel pain, heat, or cold. You may have a greater risk of getting burned. If told, put ice on the affected area. This may help if you are sore or have pain after a cramp or spasm. ?Put ice in a plastic bag. ?Place a towel between your skin and the bag. ?Leave the ice on for 20 minutes, 2 3 times a day. Try taking hot showers or baths to help relax tight muscles. Eating and drinking Drink enough fluid to keep your pee (urine) pale yellow. Eat a healthy diet to help ensure that your muscles work well. This should include: ?Fruits and vegetables. ?Lean protein. ?Whole grains. ?Low-fat or nonfat dairy products. General instructions If you are having cramps often, avoid intense exercise for several days. Take cvww-ill-ifmelvj and prescription medicines only as told by your doctor. Watch for any changes in your symptoms. Keep all follow-up visits as told by your doctor. This is important. Contact a doctor if: Your cramps or spasms get worse or happen more often. Your cramps or spasms do not get better with time. Summary Muscle cramps and spasms are when muscles tighten by themselves. They usually get better within minutes. Cramps and spasms occur most often in the calf muscles of the leg. Massage, stretch, and relax the muscle. This may help the cramp or spasm go away. Drink enough fluid to keep your pee (urine) pale yellow. This information is not intended to replace advice given to you by your health care provider. Make sure you discuss any questions you have with your health care provider. Document Revised: 02/01/2022 Document Reviewed: 02/01/2022 [employer] Patient Education 2022 [employer]. Follow Up Care 01/14/2023 10:30:56 With:ORLANDO PACE Address: [address] [place] [phone]- When:Within 3 Day(s) [facility]06-16-2023 History of Present illness Narrative* Orlando Pace MD - 01/10/2023 9:30 AM EDT Subjective Patient ID: Scarlet Durand is a 23 y.o. female who presents for Referrals for psychology and pain medicine. Discuss bulge on back of neck, hurting back all the way down. Having trouble hearing for about 1 week. Sounds are muffled. HPI Patient with previous diagnosis of mood disorder and thought disorder Stress at home lots of illness with children and issues with spouse Neck spasm and muscle spasms in the neck Here with mom Fibromyalgia ongoing Cardiac arrhythmia symptoms stable No chest pain or shortness of breath Obese needs weight loss Review of Systems Constitutional: Negative for activity change and fatigue. HENT: Negative for congestion and sore throat. Eyes: Negative for discharge. Respiratory: Negative for cough, chest tightness and shortness of breath. Cardiovascular: Negative for chest pain and leg swelling. Gastrointestinal: Negative for abdominal pain, blood in stool, constipation, diarrhea, nausea and vomiting. Endocrine: Negative for cold intolerance and heat intolerance. Genitourinary: Negative for difficulty urinating and hematuria. Musculoskeletal: Negative for arthralgias, back pain, gait problem, myalgias and neck pain. Allergic/Immunologic: Negative for environmental allergies. Neurological: Negative for dizziness, syncope, weakness, numbness and headaches. Hematological: Negative for adenopathy. Does not bruise/bleed easily. Psychiatric/Behavioral: Negative for dysphoric mood. The patient is not nervous/anxious. All other systems reviewed and are negative. Objective BP 130/80 (BP Location: Left arm, BP Cuff Size: Large adult) Pulse 68 Temp 36.6 C (97.9 F) Ht1.638 m (5' 4.5 ) Wt 121 kg (266 lb 3.2 oz) LMP (LMP Unknown) SpO2 98% BMI 44.99 kg/m Physical Exam Vitals and nursing note reviewed. Constitutional: General: She is not in acute distress. Appearance: Normal appearance. She is obese. HENT: Head: Normocephalic and atraumatic. Right Ear: Tympanic membrane, ear canal and external ear normal. Left Ear: Tympanic membrane, ear canal and external ear normal. Nose: Nose normal. Mouth/Throat: Mouth: Mucous membranes are moist. Pharynx: Oropharynx is clear. No oropharyngeal exudate or posterior oropharyngeal erythema. Eyes: Extraocular Movements: Extraocular movements intact. Conjunctiva/sclera: Conjunctivae normal. Pupils: Pupils are equal, round, and reactive to light. Cardiovascular: Rate and Rhythm: Normal rate and regular rhythm. Pulses: Normal pulses. Heart sounds: Normal heart sounds. No murmur heard. Pulmonary: Effort: Pulmonary effort is normal. No respiratory distress. Breath sounds: Normal breath sounds. No wheezing or rales. Abdominal: General: Abdomen is flat. Bowel sounds are normal. There is no distension. Palpations: Abdomen is soft. There is no mass. Tenderness: There is no abdominal tenderness. Musculoskeletal: General: No swelling or deformity. Normal range of motion. Cervical back: Normal range of motion and neck supple. Right lower leg: No edema. Left lower leg: No edema. Lymphadenopathy: Cervical: No cervical adenopathy. Skin: General: Skin is warm and dry. Capillary Refill: Capillary refill takes less than 2 seconds. Findings: No lesion or rash. Neurological: General: No focal deficit present. Mental Status: She is alert and oriented to person, place, and time. Cranial Nerves: No cranial nerve deficit. Motor: No weakness. Psychiatric: Mood and Affect: Mood normal. Behavior: Behavior normal. Thought Content: Thought content normal. Judgment: Judgment normal. Assessment/Plan Problem List Items Addressed This Visit Bipolar and related disorder (CMS/HCC) - Primary Schizophrenia (CMS/HCC) Relevant Orders Referral to Psychiatry Referral to Psychology Follow Up In [facility] - PCP Fibromyalgia Anxiety Class 3 severe obesity due to excess calories with serious comorbidity and body mass index (BMI) of40.0 to 44.9 in adult (CMS/HCC) Patient education provided. Stay current with age appropriate health maintenance as instructed. Appointment here or ER with new or worsening symptoms' Keep appropriate follow-up visit. Stay current with proper immunizations Report suicidal ideation report psychotic or manic symptoms Refer to psychiatry and psychology Discussed at length with patient and mom Diet and weight loss also suggested 3-month follow-up visit [facility] Phone: [phone]) 578-723205-08-2023 Evaluation + Plan noteExtracted from: Title:ED Note Author:Eric Ramírez DO Date :12/02/22 Foot sprain (S93.609A: Unspe cified sprain of unspecified foot, initial encounter) Orders: acetaminophen, 975 mg = 3 tab(s), Tab, Oral, Once, Stop date 12/02/22 3:25:00 EDT, STAT, Start date 12/02/22 3:25:00 EDT, 12/02/22 3:25:00 EDT XR Foot 3+ Views Left [facility]05-08-2023 Hospital Discharge instructions Patient Education 12/02/2022 04:36:44 Foot Sprain Foot Sprain A foot sprain is an injury to one of the ligaments in the feet. Ligaments are strong tissues that connect bones to each other. The ligament can be stretched too much. In some cases, it may tear. A tear can be either partial or complete. The severity of the sprain depends on how much of the ligamentwas damaged or torn. What are the causes? This condition is usually caused by suddenly twisting or pivoting your foot. What increases the risk? You are more likely to develop this condition if: You play a sport, such as basketball or football. You exercise or play a sport without first warming up your muscles. You start a new workout or sport. You suddenly increase how long or hard you exercise or play a sport. You have injured your foot or ankle before. What are the signs or symptoms? Symptoms of this condition start soon after an injury and include: Pain, especially in the arch of your foot. Bruising. Swelling. Being unable to walk or use your foot to support body weight. How is this diagnosed? This condition is diagnosed with a medical history and physical exam. You may also have imaging tests, such as: X-rays to check for broken bones (fractures). An MRI to see if the ligament is torn. How is this treated? Treatment for this condition depends on the severity of the sprain. Mild sprains and major sprains can be treated with: Rest, ice, pressure (compression), and elevation (RICE). Elevation means raising your injured foot. Keeping your foot in a fixed position (immobilization) for a period of time. This is done if your ligament is overstretched or partially torn. Your health care provider will apply a bandage, splint, or walking boot to keep your foot from moving until it heals. Using crutches or a scooter for a few weeks to avoid bearing weight on your foot while it is healing. Physical therapy exercises to improve movement and strength in your foot. Major sprains may also be treated with: Surgery. This is done if your ligament is fully torn and a procedure is needed to reconnect it to the bone. A cast or splint. This will be needed after surgery. A cast or splint will need to stay on your foot while it heals. Follow these instructions at home: If you have a bandage, splint, or boot: Wear it as told by your health care provider. Remove it only as told by your health care provider. Loosen it if your toes tingle, become numb, or turn cold and blue. Keep it clean and dry. If you have a cast: Do not put pressure on any part of the cast until it is fully hardened. This may take several hours. Do not stick anything inside the cast to scratch your skin. Doing that increases your risk for infection. Check the skin around the cast every day. Tell your health care provider about any concerns. You may put lotion on dry skin around the edges of the cast. Do not put lotion on the skin underneath the cast. Keep it clean and dry. Bathing Do not take baths, swim, or use a hot tub until your health care provider approves. Ask your healthcare provider if you may take showers. You may only be allowed to take sponge baths. If the bandage, splint, boot, or cast is not waterproof: ?Do not let it get wet. ?Cover it with a watertight covering when you take a bath or shower. Managing pain, stiffness, and swelling If directed, put ice on the injured area. To do this: ?If you have a removable bandage, splint, or boot, remove it as told by your health care provider. ?Put ice in a plastic bag. ?Place a towel between your skin and the bag, or between your cast and the bag. ?Leave the ice on for 20 minutes, 2 3 times per day. ?Remove the ice if your skin turns bright red. This is very important. If you cannot feel pain, heat, or cold, you have a greater risk of damage to the area. Move your toes often to reduce stiffness and swelling. Elevate the injured area above the level of your heart while you are sitting or lying down. Activity Do not use the injured foot to support your body weight until your health care provider says that you can. Use crutches or a scooter as told by your health care provider. Ask your health care provider what activities are safe for you. Do exercises as told by your healthcare provider. Gradually increase how much and how far you walk until your health care provider says it is safe toreturn to full activity. Driving Ask your health care provider if the medicine prescribed to you requires you to avoid driving or using machinery. Ask your health care provider when it is safe to drive if you have a bandage, splint, boot, or evens your foot. General instructions Take sdwt-tok-jxhubev and prescription medicines only as told by your health care provider. When you can walk without pain, wear supportive shoes that have stiff soles. Do not wear flip-flops. Do not walk barefoot. Keep all follow-up visits. This is important. Contact a health care provider if: Medicine does not help your pain. Your bruising or swelling gets worse or does not get better with treatment. Your splint, boot, or cast is damaged. Get help right away if: You develop severe numbness or tingling in your foot. Your foot turns blue, white, or briones, and it feels cold. Summary A foot sprain is an injury to one of the ligaments in the feet. Ligaments are strong tissues that connect bones to each other. You may need a bandage, splint, boot, or cast to support your foot while it heals. Sometimes, surgery may be needed. You may need physical therapy exercises to improve movement and strength in your foot. This information is not intended to replace advice given to you by your health care provider. Make sure you discuss any questions you have with your health care provider. Document Revised: 11/03/2020 Document Reviewed: 11/03/2020 [employer] Patient Education 2022 [employer]. Follow Up Care 12/02/2022 02:24:03 With:ORLANDO PACE Address: [address] [place] [phone]- When:Within 3 Day(s) [facility]05-04-2023 Hospital Discharge instructions Patient Education 11/27/2022 23:06:01 Abdominal Pain, Adult, Gvnx-zp-Cqpk Abdominal Pain, Adult Many things can cause belly (abdominal) pain. Most times, belly pain is not dangerous. Many cases of belly pain can be watched and treated at home. Sometimes, though, belly pain is serious. Your doctor will try to find the cause of your belly pain. Follow these instructions at home: Medicines Take ljxt-pbh-whklfee and prescription medicines only as told by your doctor. Do not take medicines that help you poop (laxatives) unless told by your doctor. General instructions Watch your belly pain for any changes. Drink enough fluid to keep your pee (urine) pale yellow. Keep all follow-up visits as told by your doctor. This is important. Contact a doctor if: Your belly pain changes or gets worse. You are not hungry, or you lose weight without trying. You are having trouble pooping (constipated) or have watery poop (diarrhea) for more than 2 3 days. You have pain when you pee or poop. Your belly pain wakes you up at night. Your pain gets worse with meals, after eating, or with certain foods. You are vomiting and cannot keep anything down. You have a fever. You have blood in your pee. Get help right away if: Your pain does not go away as soon as your doctor says it should. You cannot stop vomiting. Your pain is only in areas of your belly, such as the right side or the left lower part of the belly. You have bloody or black poop, or poop that looks like tar. You have very bad pain, cramping, or bloating in your belly. You have signs of not having enough fluid or water in your body (dehydration), such as: ?Dark pee, very little pee, or no pee. ?Cracked lips. ?Dry mouth. ?Sunken eyes. ?Sleepiness. ?Weakness. You have trouble breathing or chest pain. Summary Many cases of belly pain can be watched and treated at home. Watch your belly pain for any changes. Take iauy-jtf-yuaqhlm and prescription medicines only as told by your doctor. Contact a doctor if your belly pain changes or gets worse. Get help right away if you have very bad pain, cramping, or bloating in your belly. This information is not intended to replace advice given to you by your health care provider. Make sure you discuss any questions you have with your health care provider. Document Revised: 11/22/2019 Document Reviewed: 11/22/2019 [employer] Patient Education 2022 [employer]. Follow Up Care 11/27/2022 20:26:43 With:Evan Moore Address:Unknown When:11/30/2022 With:ORLANDO PACE Address: [address] [place] [id number]- When:11/30/2022 Comments:Take the antibiotics 3 times a day as prescribed to completed the course. You can take the naproxenevery 12 hours as needed for pain. Please call Dr. Perez's office tomorrow to schedule a follow-up to make sure things are getting better. Please return to the ED for any new or worsening symptoms. [facility]05-03-2023 Evaluation + Plan noteExtracted from: Title:ED Note Author:Aleta Oliveira DO Date :11/27/22 Abdominal pain, acute (R10.9 : Unspecified abdominal pain) Orders: cephalexin, 500 mg = 1 cap(s), Cap, Oral, Once, Stop date 11/27/22 22:41:00 EDT, STAT, Start date 11/27/22 22:41:00 EDT, 11/27/22 22:41:00 EDT cephalexin, 500 mg = 1 cap(s), Oral, TID, X 5 day(s), # 15 cap(s), Refills(s) 0, Pharmacy: [id number], 160, cm, 11/27/22 20:40:00 EDT, Height/Length Dosing, 119.2, kg, 11/27/22 20:40:00 EDT, Weight Dosing ketorolac, 30 mg = 1 mL, Injection, IV Push, Once, Stop date 11/27/22 22:41:00 EDT, STAT, Start date 11/27/22 22:41:00 EDT, 11/27/22 22:41:00 EDT naproxen, 500 mg = 1 tab(s), Oral, BID, PRN for pain, # 20 tab(s), Refills(s) 0, Pharmacy: [id number], 160, cm, 11/27/22 20:40:00 EDT, Height/Length Dosing, 119.2, kg, 11/27/22 20:40:00 EDT, Weight Dosing Automated Diff Basic Metabolic Panel CBC w/ Auto Diff CT Abdomen/Pelvis w/o Contrast eGFR Hepatic Function Panel UA With Cult Reflex [facility]04-17-2023 Hospital Discharge instructions Patient Education 11/11/2022 20:33:22 Edema, Xmbw-qr-Qxht Edema Edema is when you have too much fluid in your body or under your skin. Edema may make your legs, feet, and ankles swell up. Swelling is also common in looser tissues, like around your eyes. This is acommon condition. It gets more common as you get older. There are many possible causes of edema. Eating too much salt (sodium) and being on your feet or sitting for a long time can cause edema in your legs, feet, and ankles. Hot weather may make edema worse. Edema is usually painless. Your skin may look swollen or shiny. Follow these instructions at home: Keep the swollen body part raised (elevated) above the level of your heart when you are sitting or lying down. Do not sit still or stand for a long time. Do not wear tight clothes. Do not wear garters on your upper legs. Exercise your legs. This can help the swelling go down. Wear elastic bandages or support stockings as told by your doctor. Eat a low-salt (low-sodium) diet to reduce fluid as told by your doctor. Depending on the cause of your swelling, you may need to limit how much fluid you drink (fluid restriction). Take ayag-zql-veoqepb and prescription medicines only as told by your doctor. Contact a doctor if: Treatment is not working. You have heart, liver, or kidney disease and have symptoms of edema. You have sudden and unexplained weight gain. Get help right away if: You have shortness of breath or chest pain. You cannot breathe when you lie down. You have pain, redness, or warmth in the swollen areas. You have heart, liver, or kidney disease and get edema all of a sudden. You have a fever and your symptoms get worse all of a sudden. Summary Edema is when you have too much fluid in your body or under your skin. Edema may make your legs, feet, and ankles swell up. Swelling is also common in looser tissues, like around your eyes. Raise (elevate) the swollen body part above the level of your heart when you are sitting or lying down. Follow your doctor's instructions about diet and how much fluid you can drink (fluid restriction). This information is not intended to replace advice given to you by your health care provider. Make sure you discuss any questions you have with your health care provider. Document Released: 12/30/2008 Document Revised: 07/17/2018 Document Reviewed: 08/01/2017 [employer] Patient Education 2020 [place]. Follow Up Care 11/11/2022 19:33:12 With:Evan Moore Address: [address], [address] [place] [address]- Business (1) When:11/14/2022 20:27:58 Comments:Follow-up with Dr. Moore for further evaluation of your symptoms. With:ORLANDO PACE Address: [address] [place] [address] When:11/14/2022 20:27:51 Comments:Follow-up with your primary care provider in 3 to 5 days. If symptoms worsen, do not improve, or new symptoms arise please report back to emergency department for further evaluation. [facility]04-17-2023 Evaluation + Plan noteExtracted from: Title:ED Note Author:Miguelito Rubi PA-C te:11/11/22 Leg swelling (M79.89: Other specified soft tissue disorders) [facility]04-14-2023 Evaluation + Plan noteExtracted from: Title:OB Inpatient Progress Note * Au thor:Evan Moore MD Date:11/08/22 Impression and Plan Condition: Stable. Plan Routine care. Extracted from: Title:OB Inpatient Progress Note * Au thor:Evan Moore MD Date:11/07/22 Impression and Plan Condition: Stable. Plan Routine care. Extracted from: Title:ANES Post-operative Note - Spinal Author:Fernie Sanchez Jr., DO Date:11/06/22 Plan Transfer/Discharge: Transfer/Discharge Discharge when meets criteria ( To home ). Extracted from: Title:ANES Pre-operative Note - Adult Author:Fernie Barrera Jr., DO Date:11/06/22 Plan [place] [employer] (ASA) physical status classification: Class II. Anesthetic Preoperative Plan: Anesthesia. Regional Spinal. Extracted from: Title:OB Admission H&P L&D/ PreOp * Author:Evan Abarca MD Date:11/06/22 Impression and Plan Diagnosis Gestational diabetes mellitus in childbirth, insulin controlled ([id number] O24.424, Discharge, Medical). Encounter for supervision of other normal , third trimester ([id number] Z34.83, Discharge, Medical). Encounter for sterilization ([id number] Z30.2, Discharge, Medical). 38 weeks gestation of ([id number] Z3A.38, Discharge, Medical). condition: Stable. Maternal condition: Stable. Plan Admit. [facility]04-14-2023 Hospital Discharge instructions Patient Education 11/08/2022 09:29:50 Delivery, Care After Delivery, Care After This sheet gives you information about how to care for yourself after your procedure. Your health care provider may also give you more specific instructions. If you have problems or questions, contact your health care provider. What can I expect after the procedure? After the procedure, it is common to have: A small amount of blood or clear fluid coming from the incision. Some redness, swelling, and pain in your incision area. Some abdominal pain and soreness. Vaginal bleeding (lochia). Even though you did not have a vaginal delivery, you will still have vaginal bleeding and discharge. Pelvic cramps. Fatigue. You may have pain, swelling, and discomfort in the tissue between your vagina and your anus (perineum) if: Your was unplanned, and you were allowed to labor and push. An incision was made in the area (episiotomy) or the tissue tore during attempted vaginal delivery. Follow these instructions at home: Incision care Follow instructions from your health care provider about how to take care of your incision. Make sure you: ?Wash your hands with soap and water before you change your bandage (dressing). If soap and water are not available, use hand bedspread folder. ?If you have a dressing, change it or remove it as told by your health care provider. ?Leave stitches (sutures), skin maribeth, skin glue, or adhesive strips in place. These skin closures may need to stay in place for 2 weeks or longer. If adhesive strip edges start to loosen and curl up, you may trim the loose edges. Do not remove adhesive strips completely unless your health care provider tells you to do that. Check your incision area every day for signs of infection. Check for: ?More redness, swelling, or pain. ?More fluid or blood. ?Warmth. ?Pus or a bad smell. Do not take baths, swim, or use a hot tub until your health care provider says it's okay. Ask your health care provider if you can take showers. When you cough or sneeze, hug a pillow. This helps with pain and decreases the chance of your incision opening up (dehiscing). Do this until your incision heals. Medicines Take usqx-ycb-fmndcoa and prescription medicines only as told by your health care provider. If you were prescribed an antibiotic medicine, take it as told by your health care provider. Do notstop taking the antibiotic even if you start to feel better. Do not drive or use heavy machinery while taking prescription pain medicine. Lifestyle Do not drink alcohol. This is especially important if you are or taking pain medicine. Do not use any products that contain nicotine or tobacco, such as cigarettes, e- cigarettes, and chewing tobacco. If you need help quitting, ask your health care provider. Eating and drinking Drink at least 8 eight-ounce glasses of water every day unless told not to by your health care provider. If you breastfeed, you may need to drink even more water. Eat high-fiber foods every day. These foods may help prevent or relieve constipation. High-fiber foods include: ?Whole grain cereals and breads. ?Brown rice. ?Beans. ?Fresh fruits and vegetables. Activity If possible, have someone help you care for your baby and help with household activities for at least a few days after you leave the hospital. Return to your normal activities as told by your health care provider. Ask your health care provider what activities are safe for you. Rest as much as possible. Try to rest or take a nap while your baby is sleeping. Do not lift anything that is heavier than 10 lbs (4.5 kg), or the limit that you were told, until your health care provider says that it is safe. Talk with your health care provider about when you can engage in sexual activity. This may depend on your: ?Risk of infection. ?How fast you heal. ?Comfort and desire to engage in sexual activity. General instructions Do not use tampons or douches until your health care provider approves. Wear loose, comfortable clothing and a supportive and well-fitting bra. Keep your perineum clean and dry. Wipe from front to back when you use the toilet. If you pass a blood clot, save it and call your health care provider to discuss. Do not flush bloodclots down the toilet before you get instructions from your health care provider. Keep all follow-up visits for you and your baby as told by your health care provider. This is important. Contact a health care provider if: You have: ?A fever. ?Bad-smelling vaginal discharge. ?Pus or a bad smell coming from your incision. ?Difficulty or pain when urinating. ?A sudden increase or decrease in the frequency of your bowel movements. ?More redness, swelling, or pain around your incision. ?More fluid or blood coming from your incision. ?A rash. ?Nausea. ?Little or no interest in activities you used to enjoy. ?Questions about caring for yourself or your baby. Your incision feels warm to the touch. Your breasts turn red or become painful or hard. You feel unusually sad or worried. You vomit. You pass a blood clot from your vagina. You urinate more than usual. You are dizzy or light-headed. Get help right away if: You have: ?Pain that does not go away or get better with medicine. ?Chest pain. ?Difficulty breathing. ?Blurred vision or spots in your vision. ?Thoughts about hurting yourself or your baby. ?New pain in your abdomen or in one of your legs. ?A severe headache. You faint. You bleed from your vagina so much that you fill more than one sanitary pad in one hour. Bleeding should not be heavier than your heaviest period. Summary After the procedure, it is common to have pain at your incision site, abdominal cramping, and slight bleeding from your vagina. Check your incision area every day for signs of infection. Tell your health care provider about any unusual symptoms. Keep all follow-up visits for you and your baby as told by your health care provider. This information is not intended to replace advice given to you by your health care provider. Make sure you discuss any questions you have with your health care provider. Document Released: 04/05/2003 Document Revised: 01/20/2019 Document Reviewed: 01/20/2019 [employer] Patient Education 2020 [place]. Follow Up Care 10/24/2022 10:06:20 With:Evan Moore Address: [address] [place] [id number] [facility] (1) When:6 weeks Comments:Call Dr if fever>100.5 F, heavy bleedingCall for any problems. [facility]04-08-2023 Hospital Discharge instructions Patient Education 11/02/2022 19:57:19 Delivery Delivery , or delivery, is the surgical delivery of a baby through an incision in theabdomen and the uterus. This may be referred to as a C- section. This procedure may be scheduled ahead of time, or it may be done in an emergency situation. Tell a health care provider about: Any allergies you have. All medicines you are taking, including vitamins, herbs, eye drops, creams, and zhrk-gvs-hlfkfhs medicines. Any problems you or family members have had with anesthetic medicines. Any blood disorders you have. Any surgeries you have had. Any medical conditions you have. Whether you or any members of your family have a history of deep vein thrombosis (DVT) or pulmonaryembolism (PE). What are the risks? Generally, this is a safe procedure. However, problems may occur, including: Infection. Bleeding. Allergic reactions to medicines. Damage to other structures or organs. Blood clots. Injury to your baby. What happens before the procedure? General instructions Follow instructions from your health care provider about eating or drinking restrictions. If you know that you are going to have a delivery, do not shave your pubic area. Shaving before the procedure may increase your risk of infection. Plan to have someone take you home from the hospital. Ask your health care provider what steps will be taken to prevent infection. These may include: ?Removing hair at the surgery site. ? Washing skin with a germ-killing soap. ? Taking antibiotic medicine. Depending on the reason for your delivery, you may have a physical exam or additional testing, such as an ultrasound. You may have your blood or urine tested. Questions for your health care provider Ask your health care provider about: ?Changing or stopping your regular medicines. This is especially important if you are taking diabetes medicines or blood thinners. ?Your pain management plan. This is especially important if you plan to breastfeed your baby. ?How long you will be in the hospital after the procedure. ?Any concerns you may have about receiving blood products, if you need them during the procedure. ?Cord blood banking, if you plan to collect your baby's umbilical cord blood. You may also want to ask your health care provider: ?Whether you will be able to hold or breastfeed your baby while you are still in the operating room. ?Whether your baby can stay with you immediately after the procedure and during your recovery. ?Whether a family member or a person of your choice can go with you into the operating room and stay with you during the procedure, immediately after the procedure, and during your recovery. What happens during the procedure? An IV will be inserted into one of your veins. Fluid and medicines, such as antibiotics, will be given before the surgery. monitors will be placed on your abdomen to check your baby's heart rate. You may be given a special warming gown to wear to keep your temperature stable. A catheter may be inserted into your bladder through your urethra. This drains your urine during the procedure. You may be given one or more of the following: ?A medicine to numb the area (local anesthetic). ?A medicine to make you fall asleep (general anesthetic). ?A medicine (regional anesthetic) that is injected into your back or through a small thin tube placed in your back (spinal anesthetic or epidural anesthetic). This numbs everything below the injection site and allows you to stay awake during your procedure. If this makes you feel nauseous, tell your health care provider. Medicines will be available to help reduce any nausea you may feel. An incision will be made in your abdomen, and then in your uterus. If you are awake during your procedure, you may feel tugging and pulling in your abdomen, but you should not feel pain. If you feel pain, tell your health care provider immediately. Your baby will be removed from your uterus. You may feel more pressure or pushing while this happens. Immediately after , your baby will be dried and kept warm. You may be able to hold and breastfeed your baby. The umbilical cord may be clamped and cut during this time. This usually occurs after waiting a period of 1 2 minutes after delivery. Your placenta will be removed from your uterus. Your incisions will be closed with stitches (sutures). Maribeth, skin glue, or adhesive strips may also be applied to the incision in your abdomen. Bandages (dressings) may be placed over the incision in your abdomen. The procedure may vary among health care providers and hospitals. What happens after the procedure? Your blood pressure, heart rate, breathing rate, and blood oxygen level will be monitored until youare discharged from the hospital. You may continue to receive fluids and medicines through an IV. You will have some pain. Medicines will be available to help control your pain. To help prevent blood clots: ?You may be given medicines. ?You may have to wear compression stockings or devices. ?You will be encouraged to walk around when you are able. Hospital staff will encourage and support bonding with your baby. Your hospital may have you and your baby to stay in the same room (rooming in) during your hospital stay to encourage successful bonding and . You may be encouraged to cough and breathe deeply often. This helps to prevent lung problems. If you have a catheter draining your urine, it will be removed as soon as possible after your procedure. Summary , or delivery, is the surgical delivery of a baby through an incision in theabdomen and the uterus. Follow instructions from your health care provider about eating or drinking restrictions before theprocedure. You will have some pain after the procedure. Medicines will be available to help control your pain. Hospital staff will encourage and support bonding with your baby after the procedure. Your hospitalmay have you and your baby to stay in the same room (rooming in) during your hospital stay to encourage successful bonding and . This information is not intended to replace advice given to you by your health care provider. Make sure you discuss any questions you have with your health care provider. Document Released: 07/14/2006 Document Revised: 01/18/2019 Document Reviewed: 01/18/2019 [employer] Patient Education 2020 [place]. Follow Up Care 11/02/2022 18:12:22 With:Follow up with primary care provider Address:Unknown When: Unknown Comments:Call for any problems.Call Dr if fever>100.5 F, heavy bleedingCall for severe abdominal painCallphysician for heavy vaginal bleedingReturn for contractions closer, longer, harderReturn for decreased movementReturn if ruptured membranes or vaginal bleedingC-Section is scheduled for November 06 at 12:00 p.m. [facility]03-31-2023 Hospital Discharge instructions Follow Up Care 10/25/2022 14:33:08 With:Evan Moore Address:Unknown When:10/29/2022 Comments:Call for any problems.Return for contractions closer, longer, harderReturn for decreased movementReturn if ruptured membranes or vaginal bleeding [facility]03-29-2023 Hospital Discharge instructions Follow Up Care 10/23/2022 14:40:42 With:Evan Moore Address:Unknown When:10/30/2022 14:00:00 Comments:Return for decreased movementReturn for contractions closer, longer, harderReturn if rupturedmembranes or vaginal bleeding [facility]03-27-2023 Hospital Discharge instructions Follow Up Care 10/20/2022 22:10:09 With:Evan Moore Address:Unknown When:10/23/2022 Comments:Appointment has already been scheduledCall for severe abdominal painReturn for contractions closer,longer, harderReturn for decreased movementReturn if ruptured membranes or vaginal bleeding [facility]03-26-2023 Hospital Discharge instructions Patient Education 10/20/2022 15:03:38 Signs and Symptoms of Labor Signs and Symptoms of Labor Labor is your body's natural process of moving your baby, placenta, and umbilical cord out of your uterus. The process of labor usually starts when your baby is full-term, between 37 and 40 weeks of . How will I know when I am close to going into labor? As your body prepares for labor and the of your baby, you may notice the following symptoms in the weeks and days before true labor starts: Having a strong desire to get your home ready to receive your new baby. This is called nesting. Nesting may be a sign that labor is approaching, and it may occur several weeks before . Nesting may involve cleaning and organizing your home. Passing a small amount of thick, bloody mucus out of your vagina (normal bloody show or losing yourmucus plug). This may happen more than a week before labor begins, or it might occur right before labor begins as the opening of the cervix starts to widen (dilate). For some women, the entire mucus plug passes at once. For others, smaller portions of the mucus plug may gradually pass over several d ays. Your baby moving (dropping) lower in your pelvis to get into position for (lightening). When this happens, you may feel more pressure on your bladder and pelvic bone and less pressure on your ribs. This may make it easier to breathe. It may also cause you to need to urinate more often and have problems with bowel movements. Having practice contractions ([place] contractions) that occur at irregular (unevenly spaced) intervals that are more than 10 minutes apart. This is also called false labor. False labor contractions are common after exercise or sexual activity, and they will stop if you change position, rest, or drink fluids. These contractions are usually mild and do not get stronger over time. They may feel like: ?A backache or back pain. ?Mild cramps, similar to menstrual cramps. ?Tightening or pressure in your abdomen. Other early symptoms that labor may be starting soon include: Nausea or loss of appetite. Diarrhea. Having a sudden burst of energy, or feeling very tired. Mood changes. Having trouble sleeping. How will I know when labor has begun? Signs that true labor has begun may include: Having contractions that come at regular (evenly spaced) intervals and increase in intensity. This may feel like more intense tightening or pressure in your abdomen that moves to your back. ?Contractions may also feel like rhythmic pain in your upper thighs or back that comes and goes at regular intervals. ?For first-time mothers, this change in intensity of contractions often occurs at a more gradual pace. ?Women who have given before may notice a more rapid progression of contraction changes. Having a feeling of pressure in the vaginal area. Your water breaking (rupture of membranes). This is when the sac of fluid that surrounds your baby breaks. When this happens, you will notice fluid leaking from your vagina. This may be clear or blood-tinged. Labor usually starts within 24 hours of your water breaking, but it may take longer to begin. ?Some women notice this as a gush of fluid. ?Others notice that their underwear repeatedly becomes damp. Follow these instructions at home: When labor starts, or if your water breaks, call your health care provider or nurse care line. Based on your situation, they will determine when you should go in for an exam. When you are in early labor, you may be able to rest and manage symptoms at home. Some strategies to try at home include: ?Breathing and relaxation techniques. ?Taking a warm bath or shower. ?Listening to music. ?Using a heating pad on the lower back for pain. If you are directed to use heat: ?Place a towel between your skin and the heat source. ?Leave the heat on for 20 30 minutes. ?Remove the heat if your skin turns bright red. This is especially important if you are unable to feel pain, heat, or cold. You may have a greater risk of getting burned. Get help right away if: You have painful, regular contractions that are 5 minutes apart or less. Labor starts before you are 37 weeks along in your . You have a fever. You have a headache that does not go away. You have bright red blood coming from your vagina. You do not feel your baby moving. You have a sudden onset of: ?Severe headache with vision problems. ?Nausea, vomiting, or diarrhea. ?Chest pain or shortness of breath. These symptoms may be an emergency. If your health care provider recommends that you go to the hospital or center where you plan to deliver, do not drive yourself. Have someone else drive you, or call emergency services (911 in the [place] Summary Labor is your body's natural process of moving your baby, placenta, and umbilical cord out of your uterus. The process of labor usually starts when your baby is full-term, between 37 and 40 weeks of . When labor starts, or if your water breaks, call your health care provider or nurse care line. Based on your situation, they will determine when you should go in for an exam. This information is not intended to replace advice given to you by your health care provider. Make sure you discuss any questions you have with your health care provider. Document Released: 12/19/2017 Document Revised: 04/13/2018 Document Reviewed: 12/19/2017 [employer] Patient Education 2020 [place]. Follow Up Care 10/20/2022 13:33:25 With:Evan Moore Address:Unknown When:1 to 2 days Comments:Appointment has already been scheduledKEEP NEXT NST AND APPPOINTMNET WITH DR. TERESA Daily [facility]03-26-2023 Evaluation + Plan note Diagnostic Tests Pending * Urine Culture 10/20/22 [facility]03-14-2023 Hospital Discharge instructions Follow Up Care 10/08/2022 07:51:29 With:Evan Moore Address:Unknown When:10/16/2022 Comments:Call for any problems.Call for fever > 100.5 FCall for severe abdominal painCall physician for heavy vaginal bleedingCall physician if symptoms worsenReturn for contractions closer, longer, harderReturn for decreased movementReturn if ruptured membranes or vaginal bleeding [facility]08-29-2022 Evaluation + Plan note Diagnostic Tests Pending * Urine Culture 03/25/22 * Hepatitis B Surface Antigen 03/25/22 * RPR with Conf Rfx 03/25/22 * Rubella Antibody IgG 03/25/22 * Rubella Antibody IgM 03/25/22 * HIV Screen 4th Generation wRfx 03[facility]25/22 [facility]ments Appointment Date:11/06/2022 12:00:00 PM Scheduled Provider: Location:[facility] Appointments Appointment Date:11/06/2022 12:00:00 PM Scheduled Provider: Location:[facility] Appointment Type:Surgery FT Diagnostic Tests Pending * Urine Culture [facility]02/22 [facility]ments Appointment Date:07/16/2024 11:30:00 AM Scheduled Provider: Location:.[place] Appointment Type:PT 45 (FT) Appointment Date:07/19/2024 09:00:00 AM Scheduled Provider: Location:.[place] Appointment Type:PT 45 (FT) Appointment Date:07/23/2024 09:15:00 AM Scheduled Provider: Location:.[place] Appointment Type:PT 45 (FT) Appointment Date:07/26/2024 09:30:00 AM Scheduled Provider: Location:.[place] Appointment Type:PT 45 (FT) Appointment Date:07/30/2024 09:15:00 AM Scheduled Provider: Location:.[place] Appointment Type:PT 45 (FT) Appointment Date:08/04/2024 02:00:00 PM Scheduled Provider: Location:.[place] Appointment Type:PT Re-Eval 30 (FT) [facility] Evaluation noteNo assessment information available [facility] Work Phone: Evaluation note* Diagnosis Bipolar and related disorder ([facility]/HCC)- Primary Schizophrenia, unspecified type ([facility]) Fibromyalgia Unspecified myalgia and myositis Anxiety Anxiety state, unspecified Class 3 severe obesity due to excess calories with serious comorbidity and body mass index (BMI) of 40.0 to 44.9 in adult ([facility]) documented in this encounter [facility] Work Phone: Evaluation note* Diagnosis Calcaneal spur of foot, right- Primary Plantar fasciitis Plantar fascial fibromatosis Calcaneal spur, left foot Gastrocnemius equinus of left lower extremity Gastrocnemius equinus of right lower extremity documented in this encounter [facility] HealthcareEvaluation note* Diagnosis Gastrocnemius equinus of right lower extremity- Primary Plantar fasciitis Plantar fascial fibromatosis Gastrocnemius equinus of left lower extremity Calcaneal spur, left foot Calcaneal spur of foot, right documented in this encounter [facility] HealthcareEvaluation note* Diagnosis Plantar fasciitis- Primary Plantar fascial fibromatosis Gastrocnemius equinus of left lower extremity Gastrocnemius equinus of right lower extremity documented in this encounter [facility] HealthcareEvaluation note* Diagnosis Plantar fasciitis- Primary Plantar fascial fibromatosis Gastrocnemius equinus of left lower extremity Gastrocnemius equinus of right lower extremity documented in this encounter [facility] HealthcareHistory of Present illness Narrative* Familia Knight DPM FACFAS - 06/02/2024 1:50 PM EST Images from the original note were not included. Patient: Scarlet Durand : 2000 PCP: Noms Provider MD Vanessa SUBJECTIVE This is a 24 y.o. female that presents today for follow-up of plantar fasciitis bilateral feet. They state they have been stretching and icing as directed. They relate mild to moderate improvement since their last visit. The patient rates the pain on a scale from 1-10 as an 4 with 10 being the worst pain of their life. On the left the right is 100 percent better much improved awaiting her orthotic devices Allergies: No Known Allergies Past Medical History: Past Medical History: Diagnosis Date Bipolar disorder ([facility]) Fibromyalgia Gestational diabetes Medications: No current outpatient medications on file. Review of systems: Constitutional: Denies fever, chills, nausea, vomiting GI: Denies abdominal pain, cramping, loose stool, gastric ulcers Musculoskeletal: Denies low back pain, knee pain, systemic arthritis Neurologic: Denies burning, tingling, transient paralysis OBJECTIVE Physical Examination: DERM: Positive hair growth to b/l feet with good skin turgor noted. Negative openings in skin VASC: DP /PT were palpable bilateral. Capillary refill time < 3 seconds Digits 1-5 bilateral NEURO: [place] Jeremy 5.07 monofilament was intact B/L. Vibratory sensation was intact B/L Musculoskeletal: Muscle strength was +5 over 5 all intrinsic and extrinsic muscles tested. There isless pain with direct palpation of the medial band of the plantar fascia left foot. Mild pain throughout the course of the plantar fascia. No palpable deficits or ecchymosis noted within the plantar fascial band. There is no pain with lateral compression of the heel. Patient has a mild gastrocnemius-soleus equinus with mild tenderness noted at the level of the Achilles tendon. No palpable deficits noted within the Achilles tendon. No pain with range of motion of the ankle or subtalar joint. Right foot is doing significantly better no pain with direct palpation medial band of the plantar fascia ASSESSMENT 1. Plantar fasciitis 2. Gastrocnemius equinus of left lower extremity 3. Calcaneal spur, left foot PLAN The patient was educated on the etiology of plantar fasciitis. I recommended the patient continue stretching and icing on a regular basis. I recommended another injection consisting of 1 cc of 2% lidocaine plain and 1 cc of Kenalog 10 via ultrasonic guidance into the medial and central bands of theplantar fascia. Ultrasound was necessary to ensure exact placement into the medial and central bands of the plantar fascia and avoid injection into the plantar fat pad left foot. I recommended she continue stretching and icing as directed bilateral feet including the right follow up with me in 3 weeks awaiting her orthotic devices. BUCK Reynoso [facility] Narrative No data available for this section [facility] No data available for this section [facility] Discharge instructions Additional Instructions Increase fluid intake. Empty bladder frequently.[facility] Work Phone: Progress note No data available for this section [facility] Consultation (Routine) - Authorized Specialty Diagnoses / Procedures Referred By Mike t Referred To Contact Primary Care Diagnoses Schizophrenia, unspecified type (CMS/HCC) Procedures Follow Up In Advanced Primary Care - PCP Orlando Pace MD [address] [address] Referral ID Status Reason Start Date Expiration Date V isits Requested Visits Authorized [id number] Authorized 01/10/2023 07/09/2023 1 1 * Consultation (Routine) - Authorized Specialty Diagnoses / Procedures Referred By Mike koenig Referred To Contact Psychology Diagnoses Schizophrenia, unspecified type (CMS/HCC) Procedures [place] OFFICE/OUTPATIENT NEW HIGH MDM 60-74 MINUTES Orlando Pace MD [address] [address] Referral ID Status Reason Start Date Expiration Date Visits Requested Visits Authorized [id number] Authorized Specialty Services Required 01/10/2023 07/09/2023 1 1 * Consultation (Routine) - Authorized Specialty Diagnoses / Procedures Referred By Mike koenig Referred To Contact Psychiatry Diagnoses Schizophrenia, unspecified type (CMS/HCC) Procedures [place] OFFICE/OUTPATIENT [facility] 60-74 MINUTES Orlando Pace MD [address] [address] Referral ID Status Reason Start Date Expiration Date Visits Requested Visits Authorized [id number] Authorized Specialty Services Required 01/10/2023 07/09/2023 1 1 [facility] Work Phone: Summary Purpose Family History No Family History Records FoundNo Family History Records FoundNo Family History Records FoundNo Family History Records FoundNo Family History Records FoundNo Family History Records FoundNo Family History Records FoundNo Family History Records FoundNo Family History Records Found No data available for this section No data available for this section No data available for this section No data available for this section No data available for this section No data available for this section No data available for this section No data available for this section No Family History Records FoundNo Family History Records Found No data available for this section No data available for this section No data available for this section No Family History Records FoundNo Family History Records FoundNo Family History Records FoundNo Family History Records FoundNo Family History Records FoundNo Family History Records FoundNo Family History Records FoundNo Family History Records FoundNo Family History Records FoundNo Family History Records FoundNo Family History Records Found No data available for this section No Family History Records Found No data available for this section No Family History Records Found No data available for this section No Family History Records FoundNo Family History Records FoundNo Family History Records FoundNo Family History Records Found No data available for this section No Family History Records Found Advance Directives No Advanced Directives Records FoundDocuments on File Type Date Recorded Patient Enrollment Services Vice President Expl anation Advance Directives and Living Will Power of 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 * Amy Dermatitis ([place]) * UTI (Urinary Tract Infection): Female ([place]) documented in this encounter* Attachments The following attachments cannot be sent through Care Everywhere. * Trichomoniasis ([place]) * UTI (Urinary Tract Infection): Female ([place]) documented in this encounter* Attachments The following attachments cannot be sent through Care Everywhere. * Back Pain ([place]) * Sciatica ([place]) * Dysuria ([place]) * Constipation ([place]) * Abdominal Pain ([place]) * Nausea and Vomiting ([place]) documented in this encounter Assessments Diagnosis Acute cystitis without hematuria Acute cystitis Skin yeast infection Candidiasis of skin and nails Diagnosis Trichomonas vaginitis Trichomonal vulvovaginitis Blister (nonthermal) of vagina and vulva, initial encounter Acute cystitis without hematuria Acute cystitis Diagnosis Constipation, unspecified constipation type- Primary Lower abdominal pain Abdominal pain, other specified site Nausea Nausea alone Dysuria Chronic bilateral low back pain with bilateral sciatica Chief Complaint and Reason for Visit Chief Complaint lost voice/sore thro at Chief Complaint lost voice/sore thro at sore throat Chief Complaint z3a.25 z36.89 Chief Complaint z3a.25 z36.89 o99.810 Chief Complaint z3a.25 z36.89 o99.810 30 wks preg contractions contractions,37 wks preg Additional Source Comments INFORMATION SOURCE (unrecogn ized section and content) DATE CREATED AUTHOR 01/20/2018 [facility] DATE CREATED AUTHOR AUTHOR'S ORGANIZ ATION 05/29/2018 [facility] DATE CREATED AUTHOR AUTHOR'S ORGANIZ ATION 09/28/2020 [facility] DATE CREATED AUTHOR AUTHOR'S ORGANIZ ATION 12/29/2020 [facility] DATE CREATED AUTHOR AUTHOR'S ORGANIZ ATION 12/13/2021 [facility] DATE CREATED AUTHOR AUTHOR[facility]S OR[facility]IZ ATION [facility] DATE CREATED AUTHOR AUTHOR'S ORGANIZ ATION 09/04/2022 [facility] DATE CREATED AUTHOR AUTHOR'S ORGANIZ ATION 10/20/2022 [facility] DATE CREATED AUTHOR AUTHOR'S ORGANIZ ATION 11/18/2022 [facility] DATE CREATED AUTHOR AUTHOR'S ORGANIZ ATION 01/14/2024 [facility] DATE CREATED AUTHOR AUTHOR'S ORGANIZ ATION 05/31/2024 [facility] DATE CREATED AUTHOR AUTHOR'S ORGANIZ ATION 06/01/2024 [facility] DATE CREATED AUTHOR AUTHOR'S ORGANIZ ATION 06/04/2024 [facility] DATE CREATED AUTHOR AUTHOR'S ORGANIZ ATION 08/06/2024 [facility] dical [facility] DATE CREATED AUTHOR AUTHOR'S ORGANIZ ATION 09/10/2024 [facility] DATE CREATED AUTHOR AUTHOR'S ORGANIZ ATION 09/11/2024 [facility] DATE CREATED AUTHOR AUTHOR'S ORGANIZ ATION 10/15/2024 [facility] Reason for Visit (unrecogniz ed section and content) Reason Comments Urinary Tract Infection burning and pain with urination Reason Comments Vaginitis swelling, blisters Reason Comments Rectal Bleeding Reason Comments Referral Reason Comments Foot Pain B/L foot pain in arc h Reason Comments Plantar Fasciitis F/U B/L plantar fasc iitis inj x1 Reason Comments Plantar Fasciitis F/U LT plantar fasci itis inj x1 Foot Orthotics Orthotic p/u Reason Comments Foot Orthotics F/U Orthotics Care Team (unrecognized sect ion and content) Team Status: Inactive Member Role Status Dates Shabbir Mi Primary Care Provider Active Raul Ogden Jr, MD Emergency Provider Active Team Status: Active Member Role Status Dates Shabbir Duran Primary Care Provider Active Team Status: Inactive Member Role Status Dates Shabbir Duran Primary Care Provider Active Gary Candelario PA-C Emergency Provider Active Team Status: Inactive Member Role Status Dates Shabbir Duran Primary Care Provider Active Evan Moore MD Attending Provider Active Team Status: Inactive Member Role Status Dates Evan Moore MD Attending Provider Active PHYSICIAN NO FAMILY Primary Care Provider Active Team Status: Active Member Role Status Dates PHYSICIAN NO FAMILY Primary Care Provider Active Team Status: Active Member Role Status Dates NON STAFF Primary Care Provider Active Team Status: Inactive Member Role Status Dates NON STAFF Primary Care Provider Active Sanaz Mathur DO Attending Provider Active Team Status: Inactive Member Role Status Dates NON STAFF Primary Care Provider Active Evan Moore MD Admit Provider, Attending Provider A ctive Director Of Brand Marketing Relationship Specialty Start Date End Date Mattie Lipscomb MD [address] [place] [address] [facility] - [facility] PCP 01/25/22 Orlando Pace MD [address] [address] PCP - General 09/03/22 Director Of Brand Marketing Relationship Specialty Start Date End Date Unallocated, Annamarie Ambriz MD [address] [place] [id number] PCP - General 12/18/22 Director Of Brand Marketing Relationship Specialty Start Date End Date Unallocated, Annamarie Ambriz MD [address] [place] [id number] PCP - General 12/18/22 Director Of Brand Marketing Relationship Specialty Start Date End Date Unallocated, Annamarie Ambriz MD [address] [facility] [place] [address] PCP - General 12/18/22 Director Of Brand Marketing Relationship Specialty Start Date End Date Unallocated, Annamarie Ambriz MD [address] [facility] [place] [address] PCP - General 12/18/22 Director Of Brand Marketing Relationship Specialty Start Date End Date Unallocated, Annamarie Ambriz MD [address] [place] [address] PCP - General 12/18/22 Goals (unrecognized section and content) Goals may be documented in a n alternate section FOR RECORDS PERTAINING TO PATIENTS WHO ARE OR HAVE BEEN ENROLLED IN A CHEMICAL DEPENDENCY/SUBSTANCEABUSE PROGRAM, SOME INFORMATION MAY BE OMITTED. This clinical summary was aggregated from multiple sources. Caution should be exercised in using it in the provision of clinical care. This summary normalizes information from multiple sources, and as a consequence, information in this document may materially change the coding, format and clinical context of patient data. In addition, data may be omitted in some cases. CLINICAL DECISIONS SHOULD BE BASED ON THE PRIMARY CLINICAL RECORDS. [facility]. provides no warranty or guarantee of the accuracy or completeness of information in this document.
[2024-10-16 10:39] VITALS: BP 124/81; PULSE 80; TEMP 36.9; O2SAT 99; BMI 43.3
[2024-10-16] MEDS: ONDANSETRON 4 MG RAPDIS TABLET SL (11:18)
[2024-10-16 11:21] LABS: Influenza Virus A Antigen Negative; Influenza Virus B Antigen Negative; Internal Control Within Normal Limits; SARS-CoV-2 Ag NEGATIVE (NEGATIVE)
[2024-10-16 11:32] LABS: HCG Qualitative Urine* NEGATIVE (NEGATIVE); Internal Control Within Normal Limits
[2024-10-16 11:36] LABS: Bilirubin Urine NEGATIVE (NEGATIVE); Blood Urine NEGATIVE (NEGATIVE); Clarity Urine CLOUDY (CLEAR); Color Urine LT. YELLOW (YELLOW); Glucose Urine UA NEGATIVE (NEGATIVE); Ketones Urine NEGATIVE (NEGATIVE); Leukocyte Esterase Urine SMALL (NEGATIVE); Nitrite Urine POSITIVE (NEGATIVE); Protein Urine NEGATIVE (NEG/TRACE); Urobilinogen Urine 0.2 EU/dL (0.2-1.0); pH Urine 6.5 (5.0-9.0)
[2024-10-16 11:40] LABS: Urine Microscopic Indicated YES
--- NOTE | 2024-10-16 11:46 | ED_ITS ---
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 with almost few days history of nausea vomiting and she has been exposed to multiple people with similar symptoms at work, patient also has been complaining of some smell to her urine and frequency The patient did had some sore throat initially when she started being sick few days ago and she have her daughter had similar symptoms at home No fever no chills no other concerns Related Data Previous Rx's ?Medication ?Instructions ?Recorded cephalexin 500 mg capsule 500 mg PO Q8H 7 days #21 caps 10/16/24 ondansetron 4 mg disintegrating 4 mg PO Q8H PRN nausea and 10/16/24 tablet vomiting 3 days #10 tabs Allergies Allergy/AdvReac Type Severity Reaction Status Date / Time No Known Drug Allergies Allergy Verified 07/27/23 14:50 Review of Systems ROS Status of ROS 10 or more systems reviewed and unremark able except as noted in history and below PFSH PFSH Social History Little interest or pleasure in doing things: not at all Feeling down, depressed, or hopeless: not at all Exam Narrative Exam Narrative: Nurses notes and vital signs reviewed and patient is not hypoxic. General: Well-appearing and in no apparent distress. Skin: Warm, dry, no pallor noted. No rash. Head: Normocephalic, atraumatic. Neck: Supple, non-tender. Cardiovascular: Regular Rate and Rhythm without murmur, gallop or rub. Respiratory: No accessory muscle use or respiratory distress. Lungs are clear to auscultation, no wheezing, rales or rhonchi Chest Wall: no tenderness Back: No midline thoracic or lumbar vertebral tenderness. No CVA tenderness Musculoskeletal: normal ROM, no calf or popliteal tenderness, no lower extremity edema/swelling GI: Abdomen is soft, non-distended. Normal bowel sounds. No masses appreciated. No tenderness to palpation. No rebound, guarding, or rigidity noted. Neurological: A&O x4. No cranial nerve dysfunction observed. No truncal ataxia. Moves all extremities. Sensation intact. Psychiatric: Cooperative and interactive. Normal mood and affect. Constitutional Vital Signs, click to edit/add: Last Vital Signs Temp 98.4 F 10/16/24 10:39 Pulse 80 10/16/24 10:39 Resp 18 10/16/24 10:39 BP 124/81 10/16/24 10:39 Pulse Ox 99 10/16/24 10:39 O2 Del Method Room Air 10/16/24 10:39 Course Vital Signs Vital signs: Vital Signs Temperature 98.4 F 10/16/24 10:39 Pulse Rate 80 10/16/24 10:39 Respiratory Rate 18 10/16/24 10:39 Blood Pressure 124/81 10/16/24 10:39 Pulse Oximetry 99 10/16/24 10:39 Oxygen Delivery Method Room Air 10/16/24 10:39 Temperature 98.4 F 10/16/24 10:39 Pulse Rate 80 10/16/24 10:39 Respiratory Rate 18 10/16/24 10:39 Blood Pressure 124/81 10/16/24 10:39 Pulse Oximetry 99 10/16/24 10:39 Oxygen Delivery Method Room Air 10/16/24 10:39 MDM - Nausea/Vomiting/Diarrhea MDM Narrative Medical decision making narrative: The patient flu and COVID test are negative Urine test is positive for nitrite and possible UTI Patient was discharged home with Keflex She also was provided Zofran here in the ER and discharged home with Zofran for supportive care The patient is to follow up with primary care physician in next 2-3 days or to return to the emergency department should any of the signs or symptoms worsen or new symptoms develop. The patient agrees with the following Diagnosis and Treatment plan and the patient will be discharged home. Lab Data Labs: Lab Results 10/16/24 10/16/24 Range/Units 10:45 11:15 Urine Color Lt. yellow (YELLOW) Urine Clarity Cloudy A (CLEAR) Urine pH 6.5 (5.0-9.0) Ur Specific [place] 1.010 (1.005-1.025) Urine Protein Negative (NEG/TRACE) mg/dL Urine Glucose (UA) Negative (NEGATIVE) mg/dL Urine Ketones Negative (NEGATIVE) mg/dL Urine Occult Blood Negative (NEGATIVE) Urine Nitrite Positive A (NEGATIVE) Urine Bilirubin Negative (NEGATIVE) Urine Urobilinogen 0.2 (0.2-1.0) EU/dL Ur Leukocyte Esterase Small A (NEGATIVE) Urine RBC 0-2 (0-2) #/HPF Urine WBC 5-10 A (NONE SEEN) #/HPF Ur Squamous Epith Cells Many A (NONE/RARE) #/LPF Urine Crystals None seen (None Seen) #/HPF Urine Bacteria Large A (NONE SEEN) #/HPF Urine Casts None seen (NONE SEEN) #/LPF Urine Mucus Trace A (NONE SEEN) Ur Culture Indicated[place] [place] HCG, Qual Negative (NEGATIVE) Influenza Type A Ag Negative Influenza Type B Ag Negative SARS-CoV-2 Ag (CV2AG) Negative (NEGATIVE) Discharge Plan Discharge Chief Complaint: Abdominal Pain Clinical Impression: UTI (urinary tract infection) Upper respiratory infection Qualifiers: URI type: unspecified URI Qualified Code(s): J06.9 - Acute upper respiratory infection, unspecified Patient Disposition: Home, Self-Care Time of Disposition Decision: 11:48 Condition: Good Prescriptions / Home Meds: New ondansetron 4 mg tablet,disintegrating 4 mg PO Q8H PRN (Reason: nausea and vomiting) 3 Days Qty: 10 0RF cephalexin 500 mg capsule 500 mg PO Q8H 7 Days Qty: 21 0RF Print Language: Serbian Instructions: Urinary Tract Infection in Women (DC), Upper Respiratory Infection (DC) Referrals: KIMBERLEE HA [Primary Care Provider] - 1 week Discharge Date/Time: 10/16/24 11:55
[2024-10-16 11:48] LABS: Bacteria Urine LARGE #/HPF (NONE SEEN); Cast Seen? NONE SEEN #/LPF (NONE SEEN); Crystals Seen? None Seen #/HPF (None Seen); Mucus Urine TRACE (NONE SEEN); RBC Urine 0-2 #/HPF (0-2); Squamous Epithelial Cell Urine MANY #/LPF (NONE/RARE); Urine Culture Indicated YES-FRMC
[2024-10-16] MEDS: CEPHALEXIN 500 MG CAPSULE PO (11:54)
== END 2024-10-16 11:55 | disposition home or self-care (01) ==
PROVIDERS: Emergency Provider Emergency Medicine; PCP Nurse Practitioner Family
DX: N39.0 Urinary tract infection, site not specified (principal); J06.9 Acute upper respiratory infection, unspecified
CPT/HCPCS: 81001; 84703; 87086; 87150; 87186; 87804; 87811; 99283; Q0162

== ENCOUNTER 2024-11-07 16:13 | Emergency (ER) | payer OTHER, SELFPAY ==
--- OUTSIDE RECORDS SUMMARY | 2024-11-07 16:25 | XMS_ITS | CCD ---
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 Role Phone YURI PHILIP Unavailable UnavailYURI Ramirez Unavailable Unavaila VANDANA Lua Unavailable Unavailable MIKO CARLOS Unavailable Unavailable Unavailable Primary Care Provider UnavailGRACIA Abdi Attending Unavailable GRACIA WHITNEY Consulting Unavailable GRACIA WHITNEY Admitting Unavailable DR ALEXYS DELGADO Primary Care Unavailable MIKO CROWDER Unavailable SHABBIR MI Primary Care Unavailable Mattie Lipscomb Unavailable Unavailable Unavailable Shabbir MI Primary Care Physician Doreen GARRETT Unavailable Shabbir Mi Primary Care Provider MD Raul Ogden Jr Emergency Provider GIANCARLO Candelario Emergency Provider Shabbir Mi Primary Care Provider MD Evan Moore Attending Provider NO FAMILY, PHYSICIAN Primary Care Provider Unava ilable NONE, XXXX Primary Care Physician Unavailab eugene Lipscomb, Dr. Mattie Weir Primary Care U [facility] Ruel, Dr. Mattie Weir Attending U brittney Lipscomb, Dr. Mattie Weir Primary Care U [facility] [place], Dr. Mattie Weir Attending U [facility] Self, Referral Referring Unavailable Ruel, Dr. Mattie Weir Primary Care U [facility], Dr. Orlando Lozano Primary Care Unava ilable [facility], Dr. Orlando Lozano Attending Unava ilable [facility], Dr. Orlando Lozano Referring Unava ilable Self, Referral Referring Unavailable Musat, Jp Hoda Richards Attending Unavailernesto Lipscomb, Dr. Mattie Weir Attending U navailable Ruel, Dr. Mattie Weir Primary Care U [facility], ORLANDO Solorzano Primary Care Physician Unava ilable RonelzandraShabbir Primary Care Provider MD Evan Moore Attending Provider NO FAMILY, PHYSICIAN Primary Care Provider Unava ilable NON STAFF Primary Care Provider UnavailDO Sanaz Weldon Attending Provider [phone] MD Evan Moore Admit Provider MD Evan Moore Admit Provider Mattie Lipscomb MD Unavailable Orlando Pace MD Primary Care Provider DOREEN HA Primary Care Physician LELAND, DOREEN Primary Care Unavailable Dokken, DO Kaylinn A Attending Unavailable LELAND, DOREEN Primary Care Unavailable Hajdari, Astrit H Attending Unavailable Bi Galeana Attending Unavailable LELAND, DOREEN Primary Care Unavailable Blake Rivera Attending Unavailable LELAND, DOREEN Primary Care Unavailable Dokken, DO Kaylinn A Attending Unavailable Papi CRAWFORD Attending Unavailable Bi Galeana Attending Unavailable Hajdari, Astrit H Attending Unavailable Bi Galeana Attending Unavailable LELAND, DOREEN Primary Care Unavailable Hajdari, Astrit H Attending Unavailable LELAND, DOREEN Primary Care Unavailable LELAND, DOREEN Primary Care Unavailable Kosta Carter Attending Unavailable JEANINE TORRE Admitting Unavailable JEANINE TORRE Attending Unavailable LELAND, DOREEN Primary Care Unavailable Dokken, DO Kaylinn A Attending Unavailable Dokken, DO Kaylinn A Attending Unavailable LELAND, DOREEN Primary Care Unavailable Unallocated , Noms Provider Primary Care Provi salvador LELAND, DOREEN Primary Care Unavailable Hamarcin, Astrit H Attending Unavailable Bi Galeana Attending Unavailable LELAND, DOREEN Primary Care Unavailable Bi Galeana Attending Unavailable LELAND, DOREEN Primary Care Unavailable LELAND, DOREEN Primary Care Unavailable LELAND, DOREEN Attending Unavailable LELAND, DOREEN Admitting Unavailable Ramin, Ashley H Attending Unavailable LELAND, DOREEN Primary Care Unavailable LELAND, DOREEN Attending Unavailable LELAND, DOREEN Primary Care Unavailable LELAND, DOREEN Admitting Unavailable DOREEN GARRETT Attending Unavailable DOLRUBI, FAMILIA Rosas Attending Unavailable DOLCE, FAMILIA Rosas Attending Unavailable DOLCE, FAMILIA Rosas Attending Unavailable DOLRUBI, FAMILIA Rosas Attending Unavailable LELAND, DOREEN Attending Unavailable LELAND, DOREEN Admitting Unavailable LELAND, DOREEN Primary Care Unavailable Papi CRAWFORD Attending Unavailable LELAND, DOREEN Primary Care Unavailable Luz Marina FREGOSO Attending Unavailable LELAND, DOREEN Primary Care Unavailable LELAND, DOREEN Primary Care Unavailable Luz Marina FREGOSO Attending Unavailable LELAND, DOREEN Attending Unavailable LELAND, DOREEN Referring Unavailable LELAND, DOREEN Primary Care Unavailable Papi CRAWFORD Attending Unavailable LELAND, DOREEN Primary Care Unavailable Triny Ray MD Attending Provider Triny Ray Attending Unavailable Triny Ray Admitting Unavailable LELAND, DOREEN Primary Care Unavailable Luz Marina FREGOSO Attending Unavailable LELAND, DOREEN Primary Care Unavailable Blake Rivera Attending Unavailable LELAND, DOREEN Primary Care Unavailable Eric Ramírez Attending Unavailable LELAND, DOREEN Primary Care Unavailable Luz Marina FREGOSO Attending Unavailable Blake Rivera Attending Unavailable LELAND, DOREEN Primary Care Unavailable Medications Current Medications Medication Drug Class(es) Dates Sig (Normalized) Sig (Original) acetaminophen 325 mg / butalbital 50 mg / caffeine 40 mg oral tablet (1 source) Barbiturate, Central Nervous System Stimulant, Methylxanthine Start: 06-29-2024 Butalbital-Acetam inophen-Caff 50-325-40 mg tablet Active TAB PO June 29, 2024 1:00am acyclovir 400 mg oral tablet (1 source) [...] days 30 tablet 0 01/04/2020 01/14/2020 Active [id number] 200 actuat albuterol 0.09 mg/actuat metered dose inhaler (1 source) beta2-Adrenergic Agonist Start: 06-29-2024 Albuterol Sulfate 90 mcg/actuation HFA aerosol inhaler Active INHALATION June 29, 2024 1:00am ALPRAZolam 0.25 mg oral tablet (1 source) Benzodiazepine Start: 06-29-2024 take 1 tablet by mouth once daily Alprazolam 0.25 mg tablet Active 0.25 MG PO Daily June 29, 2024 1:00am amoxicillin 500 mg oral capsule (1 source) Penicillin-class Antibacterial Start: 05-17-2024 End: 05-27-2024 take 1 capsule by mouth three times daily amoxicillin 500 mg Cap 500 mg = 1 cap(s), Oral, TID, X 10 day(s), # 30 cap(s), Refills(s) 0, Pharmacy: [facility], 162, cm, 05/09/24 14:21:00 EDT, Height/Length Dosing, 121.6, kg, 05/09/24 14:21:00 EDT, Weight Dosing Start Date: 05/17/24 Stop Date: 05/27/24 Status: Ordered amoxicillin 875 mg / clavulanate 125 mg oral tablet (8 sources) Penicillin-class Antibacterial Start: 08-22-2023 End: 09-01-2023 Augmentin 875 mg-125 mg Tab 1 tab(s), Oral, q12hr for 10 day(s), 20 tab(s), Refill(s) 0, [facility], 162, cm, 08/22/23 22:19:00 EST, Height/Length Dosing, 122.4, kg, 08/22/23 22:19:00 EST, Weight Dosing Start Date: 08/22/23 Stop Date: 09/01/23 Status: Ordered Start: 04-07-2021 End: 04-16-2022 take 1 tablet by mouth twice daily Amoxicillin-Pot Clavulanate (Augmentin) 875-125 mg tablet Discontinued 1 TAB PO Twice daily 16 05April 07, 2021 12:00am April 16, 2022 4:21am atenolol 25 mg oral tablet (1 source) beta-Adrenergic Cedric Start: 06-29-2024 take 1 tablet by mouth once daily Atenolol 25 mg tablet Active 25 MG PO Daily June 29, 2024 1:00am azithromycin 250 mg Tab 5-day Dose Pack (Z-Rafi) (1 source) Start: 04-24-2023 End: 04-29-2023 azithromycin 250 mg Tab 5-day Dose Pack (Z-Rafi) = 1 packet(s), Oral, As Directed, as directed on package labeling, X 5 day(s), # 6 tab(s), Refills(s) 0, Pharmacy: [facility], 163, cm, 04/24/23 9:56:00 EDT, Height/Length Dosing, 118, kg, 04/24/23 9:56:00 EDT, Weight Dosing Start Date: 04/24/23 Stop Date: 04/29/23 Status: Ordered busPIRone hydrochloride 5 mg oral tablet (1 source) Start: 06-29-2024 take 1 tablet by mouth twice daily Buspirone 5 mg tablet Active 5 MG PO Twice daily June 29, 2024 1:00am cephalexin 500 mg oral capsule (3 sources) Cephalosporin Antibacterial Start: 07-25-2023 End: 08-01-2023 take 1 capsule by mouth every six hours Keflex 500 mg Cap 500 mg = 1 cap(s), Oral, q6hr, X 7 day(s), # 28 cap(s), Refills(s) 0, Pharmacy: [facility], 163, cm, 07/25/23 20:26:00 EST, Height/Length Dosing, 123.3, kg, 07/25/23 20:26:00 EST, Weight Dosing Start Date: 07/25/23 Stop Date: 08/01/23 Status: Ordered Start: 11-27-2022 End: 12-02-2022 take 1 capsule by mouth three times daily Keflex 500 mg Cap 500 mg = 1 cap(s), Oral, TID, X 5 day(s), # 15 cap(s), Refills(s) 0, Pharmacy: [facility], 160, cm, 11/27/22 20:40:00 EDT, Height/Length Dosing, 119.2, kg, 11/27/22 20:40:00 EDT, Weight Dosing Start Date: 11/27/22 Stop Date: 12/02/22 Status: Ordered cyclobenzaprine hydrochloride 10 mg oral tablet (6 sources) Muscle Relaxant Start: 05-30-2024 take 1 tablet by mouth three times daily as needed for muscle spasms cyclobenzaprine 10 mg Tab 10 mg = 1 tab(s), Oral, TID, PRN for spasm, # 30 tab(s), Refills(s) 0, Pharmacy: [facility], 162, cm, 05/30/24 14:27:00 EST, Height/Length Dosing, 127, kg, 05/30/24 14:27:00 EST, Weight Dosing Start Date: 05/30/24 Status: Ordered Quantity: 30.0 Unit: tab(s) Repeat number: 1 dextromethorphan hydrobromide 3 mg/ml / promethazine hydrochloride 1.25 mg/ml oral solution (1 source) Phenothiazine, Uncompetitive N-jxzbnb-A-aspartat e Receptor Antagonist, Sigma-1 Agonist Start: 09-23-2023 End: 09-28-2023 take 5 mL by mouth every six hours for cough dextromethorphan-pr omethazine 15 mg-6.25 mg/5 mL Oral Syrup 5 mL 5 mL, Oral, q6hr for cough for 5 day(s), 200 mL, Refill(s) 0, [facility], 162, cm, 09/23/23 8:58:00 EST, Height/Length Dosing, 121.6, kg, 09/23/23 8:58:00 EST, Weight Dosing Start Date: 09/23/23 Stop Date: 09/28/23 Status: Ordered diclofenac sodium 75 mg delayed release oral tablet (1 source) Nonsteroidal Anti-inflammatory Drug Start: 06-30-2024 take 1 tablet by mouth twice daily Diclofenac Sodium 75 mg tablet,delayed release (DR/EC) Active 75 MG PO Twice daily 60 June 30, 2024 1:00am dicyclomine hydrochloride 10 mg oral capsule (3 [...] day(s), # 30 tab(s), Refills(s) 0, Pharmacy: [facility], 160, cm, 11/06/22 9:52:00 EDT, Height/Length Dosing, 125.6, kg, 11/06/22 9:52:00 EDT, Weight Dosing Start Date: 11/06/22 Stop Date: 11/13/22 Status: Ordered ibuprofen 600 mg oral tablet (20 sources) Nonsteroidal Anti-inflammatory Drug Start: 11-06-2022 take 1 tablet by mouth every six hours ibuprofen 600 mg Tab 600 mg = 1 tab(s), Oral, q6hr, # 40 tab(s), Refills(s) 0, Pharmacy: [facility], 160, cm, 11/06/22 9:52:00 EDT, Height/Length Dosing, 125.6, kg, 11/06/22 9:52:00 EDT, Weight Dosing Start Date: 11/06/22 Status: Ordered Quantity: 40.0 Unit: tab(s) Repeat number: 1 Lidocaine 2% Viscous (8 sources) Start: 05-09-2024 Lidocaine 2% Viscous 0.1 gm, 5 mL, Topical, QIDACHS, 100 mL, Refill(s) 0, [facility], 162, cm, 05/09/24 14:21:00 EDT, Height/Length Dosing, 121.6, kg, 05/09/24 14:21:00 EDT, Weight Dosing Start Date: 05/09/24 Status: Ordered Quantity: 100.0 Unit: mL Repeat number: 1 Start: 05-09-2024 Lidocaine 2% V iscous 0.1 gm, 5 mL, Topical, QIDACHS, 100 mL, Refill(s) 0, [facility], 162, cm, 05/09/24 14:21:00 EDT, Height/Length Dosing, 121.6, kg, 05/09/24 14:21:00 EDT, Weight Dosing Start Date: 05/09/24 Status: Ordered lurasidone hydrochloride 20 mg oral tablet (1 source) Atypical Antipsychotic Start: 06-29-2024 take 1 tablet by mouth once daily Lurasidone 20 mg tablet Active 20 MG PO Daily June 29, 2024 1:00am methocarbamol 750 mg oral tablet (1 source) Muscle Relaxant Start: 01-14-2023 End: 01-21-2023 take 1 tablet by mouth three times daily Robaxin-750 oral tablet 750 mg = 1 tab(s), Oral, TID, X 7 day(s), # 21 tab(s), Refills(s) 0, Pharmacy: [facility], 160, cm, 01/14/23 10:35:00 EDT, Height/Length [...] day(s), # 21 tab(s), Refills(s) 0, Pharmacy: [facility], 163, cm, 02/27/23 10:56:00 EDT, Height/Length Dosing, 118, kg, 02/27/23 10:56:00 EDT, Weight Dosing Start Date: 02/27/23 Stop Date: 03/05/23 Status: Ordered [place] (No Known Home Meds) (1 source) Start: 04-20-2022 [place] (No Kn own Home Meds) Active April 20, 2022 12:00am nystatin [id number] unt/ml topical cream (2 sources) Polyene Antifungal Start: 12-30-2019 nystatin (MYCOSTATIN) [id number] UNIT/GM cream Apply topically 2 times daily. 1 Tube 0 12/30/2019 Active Nystatin 100,000 unit/gram cream (1 source) Start: 06-29-2024 Nystatin 100,0 00 unit/gram cream Active TOPICAL June 29, 2024 1:00am ondansetron 4 mg disintegrating oral tablet (7 sources) Serotonin-3 Receptor Antagonist Start: 10-30-2024 End: 11-02-2024 take 1 tablet by mouth every six hours ondansetron 4 mg Dis Tab 4 mg = 1 tab(s), Oral, q6hr, X 3 day(s), # 10 tab(s), Refills(s) 0, Pharmacy: [facility] #[facility], 162, cm, 10/30/24 16:52:00 EDT, Height/Length Dosing, 121.8, kg, 10/30/24 16:52:00 EDT, Weight Dosing Start Date: 10/30/24 Stop Date: 11/02/24 Status: Ordered Quantity: 10.0 Unit: tab(s) Repeat number: 1 Start: 04-20-2022 End: 09-09-2022 take 1 tablet by mouth four times daily as needed for nausea and vomiting Ondansetron 4 mg tablet,disintegrating Discontinued 4 MG PO Four times daily as needed for nausea and vomiting April 20, 2022 12:00am September 09, 2022 2:43pm Start: 03-09-2019 End: 03-14-2019 take 1 tablet by mouth every eight hours as needed for nausea ondansetron (ZOFRAN ODT) 4 MG disintegrating tablet Take 1 tablet by mouth every 8 hours as needed for Nausea or Vomiting 15 tablet 0 03/09/2019 03/14/2019 Active penicillin v potassium 500 mg oral tablet (1 source) Start: 05-09-2024 End: 05-16-2024 take 1 tablet by mouth every six hours penicillin V potassium 500 mg Tab 500 mg = 1 tab(s), Oral, q6hr, X 7 day(s), # 28 tab(s), Refills(s) 0, Pharmacy: [facility], 162, cm, 05/09/24 14:21:00 EDT, Height/Length Dosing, 121.6, kg, 05/09/24 14:21:00 EDT, Weight Dosing Start Date: 05/09/24 Stop Date: 05/16/24 Status: Ordered polyethylene glycol 3350 99262 mg powder for oral solution (1 source) Osmotic Laxative Start: 03-09-2019 End: 04-08-2019 take 17 g by mouth once daily polyethylene glycol (GLYCOLAX) powder Take 17 g by mouth daily 510 g 0 03/09/2019 04/08/2019 Active Multivitamins with Folic Acid 1.25 mg oral tablet (20 sources) Start: 09-27-2022 Multivitamins with Folic Acid 1.25 mg oral tablet Refill(s) 0 Start Date: 09/27/22 Status: Ordered Repeat number: 1 Start: 09-27-2022 Multi vitamins with Folic Acid 1.25 mg oral tablet Refill(s) 0 Start Date: 09/27/22 Status: Ordered sodium phosphate 67.8 mg/ml / sodium phosphate, monobasic 185 mg/ml enema (1 source) Start: 03-09-2019 End: 03-09-2019 fleet rectal enema 1 enema sulfamethoxazole 800 mg / trimethoprim 160 mg oral tablet (16 sources) Dihydrofolate Reductase Inhibitor Antibacterial, Sulfonamide Antimicrobial Start: 07-27-2023 Bactrim D.S. 800 mg-160 mg Tab 1 tab(s), Oral, BID, 20 tab(s), Refill(s) 0, [facility], 163, cm, 07/27/23 21:11:00 EST, Height/Length Dosing, 123.4, kg, 07/27/23 21:11:00 EST, Weight Dosing Start Date: 07/27/23 Status: Ordered Quantity: 20.0 Unit: tab(s) Repeat number: 1 Start: 12-30-2019 End: 01-04-2020 take 1 tablet by mouth twice daily sulfamethoxazole-trimethoprim (BACTRIM D S) 800-160 MG per tablet Take 1 tablet by mouth 2 times daily for 5 days 10 tablet 0 12/30/2019 01/04/2020 Discontinued Start: 12-30-2019 End: 12-30-2019 sulfamethoxazole-trimethopri m (BACTRIM DS;SEPTRA DS) 800-160 MG per tablet 1 tablet tiZANidine 4 mg oral tablet (1 source) Central alpha-2 Adrenergic Agonist Start: 06-29-2024 take 1 tablet by mouth three times daily as needed Tizanidine 4 mg tablet Active 4 MG PO Three times daily as needed June 29, 2024 1:00am Zofran ODT 4 mg Tab-Dis (20 sources) Start: 09-23-2023 take 1 tablet by mouth three times daily Zofran ODT 4 mg Tab-Dis 4 mg = 1 tab(s), Oral, TID, # 15 tab(s), Refills(s) 0, Pharmacy: [facility], 162, cm, 09/23/23 8:58:00 EST, Height/Length Dosing, 121.6, kg, 09/23/23 8:58:00 EST, Weight Dosing Start Date: 09/23/23 Status: Ordered Quantity: 15.0 Unit: tab(s) Repeat number: 1 Start: 09-23-2023 take 1 tablet by delon th three times daily Zofran ODT 4 mg Tab-Dis 4 mg = 1 tab(s), Oral, TID, # 15 tab(s), Refills(s) 0, Pharmacy: [facility], 162, cm, 09/23/23 8:58:00 EST, Height/Length Dosing, 121.6, kg, 09/23/23 8:58:00 EST, Weight Dosing Start Date: 09/23/23 Status: Ordered Start: 07-27-2023 take 1 tablet by delon th every eight hours Zofran ODT 4 mg Tab-Dis 4 mg = 1 tab(s), Oral, q8hr, # 12 tab(s), Refills(s) 0, Pharmacy: [facility] #[facility], 163, cm, 07/27/23 21:11:00 EST, Height/Length Dosing, 123.4, kg, 07/27/23 21:11:00 EST, Weight Dosing Start Date: 07/27/23 Status: Ordered Quantity: 12.0 Unit: tab(s) Repeat number: 1 Start: 07-27-2023 take 1 tablet by delon th every eight hours Zofran ODT 4 mg Tab-Dis 4 mg = 1 tab(s), Oral, q8hr, # 12 tab(s), Refills(s) 0, Pharmacy: [facility], 163, cm, 07/27/23 21:11:00 EST, Height/Length Dosing, 123.4, kg, 07/27/23 21:11:00 EST, Weight Dosing Start Date: 07/27/23 Status: Ordered Start: 07-13-2023 take 1 tablet by delon th every eight hours as needed for nausea Zofran ODT 4 mg Tab-Dis 4 mg = 1 tab(s), Oral, q8hr, PRN Nausea/Vomiting, # 12 tab(s), Refills(s) 0, Pharmacy: [facility], 163, cm, 07/13/23 15:31:00 EST, Height/Length Dosing, 117.9, kg, 07/13/23 15:31:00 EST, Weight Dosing Start Date: 07/13/23 Status: Ordered Quantity: 12.0 Unit: tab(s) Repeat number: 1 Start: 07-13-2023 take 1 tablet by delon th every eight hours as needed for nausea Zofran ODT 4 mg Tab-Dis 4 mg = 1 tab(s), Oral, q8hr, PRN Nausea/Vomiting, # 12 tab(s), Refills(s) 0, Pharmacy: [facility], 163, cm, 07/13/23 15:31:00 EST, Height/Length [...] End: 01-04-2020 cefTRIAXone (ROCEPHIN) injection 250 mg 3 ml insulin isophane, human 100 unt/ml pen injector (20 sources) Start: 10-26-2022 End: 06-29-2024 Insulin Nph Isoph U-100 Human (Humulin N Nph Insulin Kwikpen) 100 unit/mL (3 mL) Insulin Pen Discontinued 12 UNIT SUBCUT Twice daily October 26, 2022 12:00am June 29, 2024 2:42pm Start: 09-27-2022 inject 12 [IU] by saenz bcutaneous injection once daily in the evening Humulin N 12 unit(s), SubCutaneous, qPM, Refills(s) 0 Start Date: 09/27/22 Status: Ordered Start: 09-27-2022 inject 12 [IU] by saenz bcutaneous injection once daily in the morning Humulin N 12 unit(s), SubCutaneous, qAM, Refills(s) 0 Start Date: 09/27/22 Status: Ordered Iopamidol (1 source) Radiographic Contrast Agent Start: 03-08-2019 End: 03-08-2019 iopamidol (ISOVUE-300) 61 % injection 100 mL magnesium citrate (1 source) Start: 03-09-2019 End: 03-09-2019 magnesium citrate solution 296 mL metroNIDAZOLE 500 mg oral tablet (1 source) Nitroimidazole Antimicrobial Start: 01-04-2020 End: 01-04-2020 metroNIDAZOLE (FLAGYL) tablet 2,000 mg naproxen sodium 550 mg oral tablet (20 sources) Nonsteroidal Anti-inflammatory Drug Start: 06-29-2024 End: 06-30-2024 take 1 tablet by mouth every twelve hours as needed Naproxen Sodium 550 mg tablet Discontinued 550 MG PO Every 12 hours as needed June 29, 2024 1:00am June 30, 2024 9:46am Start: 05-03-2023 take 1 tablet by delon twice daily naproxen 500 mg Tab 500 mg = 1 tab(s), Oral, BID, Take one tab by mouth two times a day, # 14 tab(s), Refills(s) 0, Pharmacy: [facility], 160, cm, 01/14/23 10:35:00 EDT, Height/Length Dosing, 121, kg, 01/14/23 10:35:00 EDT, Weight Dosing Start Date: 01/14/23 Status: Ordered Quantity: 14.0 Unit: tab(s) Repeat number: 1 Start: 07-13-2021 End: 04-16-2022 take 1 tablet by mouth twice daily as needed for pain Naproxen (Naprosyn) 500 mg tablet Discontinued 500 MG PO Twice daily as needed for pain July 13, 2021 1:00am April 16, 2022 4:21am nitrofurantoin, macrocrystals 25 mg / nitrofurantoin, monohydrate 75 mg oral capsule (9 sources) Nitrofuran Antibacterial Start: 10-26-2022 End: 06-29-2024 take 1 capsule by mouth every twelve hours at mealtime Nitrofurantoin Monohyd/M-Cryst (Macrobid) 100 mg Capsule Discontinued 100 MG PO Q12H October 26, 2022 12:00am June 29, 2024 2:42pm must administer with a meal/food Start: 01-16-2022 take 1 capsule by mo [facility] once daily Nitrofurantoin Monohyd Macro 100 MG Oral Capsule TAKE 1 CAPSULE EVERY 12 HOURS DAILY. Quantity: 20 Refills: 0 Ordered: 16-Jan-2022 Mattie Lipscomb MD Start : 16-Jan-2022 Active Start: 01-04-2020 End: 01-11-2020 take 1 capsule by mouth twice daily nitrofurantoin, macrocrystal-monohydrate, (MACROBID) 100 MG capsule Take 1 capsule by mouth 2 times daily for 7 days 14 capsule 0 01/04/2020 01/11/2020 Active phenazopyridine hydrochloride 200 mg oral tablet (1 source) Start: 11-23-2018 End: 03-08-2019 take 1 tablet by mouth three times daily as needed for pain phenazopyridine (PYRIDIUM) 200 MG tablet Take 1 tablet by mouth 3 times daily as needed for Pain 9 tablet 0 11/23/2018 03/08/2019 Discontinued [id number] Acid ( Multi) 27-800 mg-mcg Tablet (3 sources) Start: 10-26-2022 End: 06-29-2024 Af728-Pzca-Sdjug Acid ( Multi) 27-800 mg-mcg Tablet Discontinued TAB PO October 26, 2022 12:00am June 29, 2024 2:42pm Start: 10-26-2022 No122 -Iron-Folic Acid ( Multi) 27-800 mg-mcg Tablet Active TAB PO October 26, 2022 12:00am 50 ml sodium chloride 9 mg/m l injection (1 source) Start: 03-08-2019 End: 03-09-2019 [...] Translations: [Gestational diabetes mellitus in childbirth] Onset: 11-06-2022 10-08-2022 Episodic Disorders of teeth and jaw (2 sources) Disorder of teeth AND/OR supporting structures; Translations: [Other specified disorders of teeth and supporting structures] Onset: 05-09-2024 Episodic E Codes: Natural/environment (7 sources) Cat scratch - wound; Translations: [Scratched by cat, initial encounter] 04-07-2021 Episodic Comment on above: Problem List clean-u p per request of Phys. EHR Cmte Early or threatened labor (4 sources) False [...] Translations: [Nausea and vomiting] Onset: 07-13-2023 Episodic Noninfectious gastroenteritis (1 source) Noninfectious enteritis; Translations: [Noninfective gastroenteritis and colitis, unspecified] Onset: 10-30-2024 Episodic Nonmalignant breast conditions (1 source) Inflammatory [...] 01-10-2023 10-18-2019 Episodic Other non-traumatic joint disorders (7 sources) Acute ankle pain; Translations: [Pain in left ankle and joints of left foot] 07-13-2021 Episodic Comment on above: Problem List clean-u p per request of Phys. EHR Cmte Other nutritional; endocrine; and metabolic disorders (20 [...] unspecified; Translations: [Laryngitis] Onset: 04-01-2017 04-16-2022 Episodic Comment on above: Problem List clean-u p per request of Phys. EHR Cmte Otitis media and related conditions (1 source) [...] of vagina and vulva, initial encounter] Episodic Viral infection (6 sources) Viral disease; Translations: [Viral infection, unspecified] 04-20-2022 Episodic Comment on above: Problem List clean-u p per request of Phys. EHR Cmte Past or Other Problems Problem Classification Problem [...] Constipation; Translations: [Constipation, unspecified constipation type] Episodic Unclassified (20 sources) None (qualifier value) 01-09-2014 Unclassified (20 sources) Onset: 02-26-2016 Resolved: 10-26-2022 11-09-2016 Unclassified (12 sources) Bipolar (qualifier value) 08-22-2023 Urinary tract infections (9 sources) Acute cystitis without hematuria; Translations: [Acute cystitis] Onset: 04-29-2017 Resolved: 01-10-2023 01-10-2023 Episodic Results Test Name Value Interpretation Reference Range Facility [facility] 10-30-2024 Anion gap [Moles/Vol] 13 mmol/L Normal -16 [facility] Comment on above: Performed By: #### [id number] #### [facility] [address] [place] [address] Calcium [Mass/Vol] 8.9 mg/dL Normal 8.9-11.1 [facility] Comment on above: Performed By: #### [id number] #### [facility] [address] [place] [address] Chloride [Moles/Vol] 108 mmol/L Normal 101-111 [facility] Comment on above: Performed By: #### [id number] #### [facility] [address] [place] [address] CO2 [Moles/Vol] 26 mmol/L Normal 21-31 [facility] Comment on above: Performed By: #### [id number] #### [facility] Laboratory [address] [place] [address] Creatinine [Mass/Vol] 0.6 mg/dL Normal 0.5-1.3 [facility] Comment on above: Performed By: #### 2 [id number] #### [facility] [address] [place] [address] Glucose [Mass/Vol] 113 mg/dL Normal 55-199 [facility] Comment on above: Performed By: #### 2 [id number] #### [facility] [address] [place] [address] Potassium [Moles/Vol] 3.4 mmol/L Low 3.5-5.3 [facility] Comment on above: Performed By: #### 2 [id number] #### [facility] [address] [place] [address] Sodium [Moles/Vol] 144 mmol/L Normal 135-145 [facility] Comment on above: Performed By: #### 2 542118 #### [facility] [address] [place] [address] Urea nitrogen [Mass/Vol] 9 mg/dL Normal 5-21 [facility] Comment on above: Performed By: #### 2 435210 #### [facility] [address] [place] [address] Urea nitrogen/Creatinine [Mass ratio] 15 No Units Normal 10-20 [facility] Comment on above: Performed By: #### 2 [id number] #### [facility] [address] [place] [address] CBC w/ Auto Diffon 5 Basophils/100 WBC (Bld) 0.5 % Normal 0.0-2.0 [facility] Comment on above: Performed By: #### 2 [id number] #### [facility] [address] [place] [address] Basophils/Leukocytes Auto (Bld) [Pure # fraction] 0.1 E9/L Normal 0.0-0.2 [facility] Comment on above: Performed By: #### 2 [id number] #### [facility] [address] [place] [address] Eosinophils (Bld) [#/Vol] 0.1 E9/L Normal 0.0-0.5 [facility] Comment on above: Performed By: #### 2 768562 #### [facility] [address] [place] [address] Eosinophils/100 WBC (Bld) 0.6 % Normal 0.0-8.0 [facility] Comment on above: Performed By: #### 2 627249 #### [facility] [address] [place] [address] Erythrocyte distribution width (RBC) [Ratio] 15.4 % High 10.9-14.2 [facility] Comment on above: Performed By: #### 2 [id number] #### [facility] [address] [place] [address] Hematocrit (Bld) [Volume fraction] 36.4 % Normal 34.0-46.0 [facility] Comment on above: Performed By: #### 2 386002 #### [facility] [address] [place] [address] Hemoglobin (Bld) [Mass/Vol] 12.3 g/dL Normal 12.0-16.0 [facility] Comment on above: Performed By: #### 2 789673 #### [facility] [address] [place] [address] Lymphocytes (Bld) [#/Vol] 3.1 E9/L Normal 1.0-4.0 [facility] Comment on above: Performed By: #### 2 [id number] #### [facility] [address] [place] [address] Lymphocytes/100 WBC (Bld) 26.5 % Normal 14.0-50.0 [facility] Comment on above: Performed By: #### 2 882116 #### [facility] [address] [place] [address] MCH (RBC) [Entitic mass] 26.0 pg Low 27.0-34.0 [facility] Comment on above: Performed By: #### 2 [id number] #### [facility] [address] [place] [address] MCHC (RBC) [Mass/Vol] 33.8 g/dL Normal 31.4-36.0 [facility] Comment on above: Performed By: #### 2 520249 #### [facility] [address] [place] [address] MCV (RBC) [Entitic vol] 76.8 fL Low 80.0-100.0 [facility] Comment on above: Performed By: #### 2 062560 #### [facility] [address] [place] [address] Monocytes (Bld) [#/Vol] 0.6 E9/L Normal 0.2-1.0 [facility] Comment on above: Performed By: #### 2 648443 #### [facility] [address] [place] [address] Neutrophils (Bld) [#/Vol] 8.0 E9/L High 2.0-7.5 [facility] Comment on above: Performed By: #### 2 520596 #### [facility] [address] [place] [address] Neutrophils/100 WBC (Bld) 67.3 % Normal 36.0-75.0 [facility] Comment on above: Performed By: #### 2 448335 #### [facility] [address] [place] [address] Platelet 314.0 E9/L Normal 150.0-500.0 [facility] Comment on above: Performed By: #### 2 275451 #### [facility] [address] [place] [address] Platelet mean volume (Bld) [Entitic vol] 8.3 fL Normal 6.4-10.8 [facility] Comment on above: Performed By: #### 2 508285 #### [facility] [address] [place] [address] RBC (Bld) [#/Vol] 4.7 E12/L Normal 4.3-5.9 [facility] Comment on above: Performed By: #### 2 162195 #### [facility] [address] [place] [address] WBC corrected for nucl RBC Auto (Bld) [#/Vol] 11.8 E9/L High 4.0-11.0 [facility] Comment on above: Performed By: #### 2 [id number] #### [facility] [address] [place] [address] CHEMISTRYOrdered By: SYSTEM SYSTEM on 10-30-2024 Albumin [Mass/Vol] 3.8 g/dL Normal 3.3 - 5.0 gm/dL [facility] Albumin/Globulin [Mass ratio] 1.2 {ratio} Normal 1.1 - 2.2 [facility] ALP [Catalytic activity/Vol] 57 [iU]/d Normal 21 - 98 Int._Unit/L [facility] Chem ALT No additional P-5'-P [Catalytic activity/Vol] 10 [iU]/d Normal 6 - 46 Int._Unit/L [facility] Chem Anion gap [Moles/Vol] 13 mmol/L Normal 6 - 16 mEq/L [facility] AST [Catalytic activity/Vol] 12 [iU]/d Normal 5 - 43 Int._Unit/L [facility] Chem Bilirubin [Mass/Vol] 0.3 mg/dL Normal 0.0 - 1 .1 mg/dL [facility] Chem Bilirubin.direct [Mass/Vol] 0.0 mg/dL Normal 0.0 - 0.4 mg/dL [facility] Chem Bilirubin.indirect [Mass or moles/Vol] 0.3 mg/dL Normal 0.1 - 0.9 mg/dL [facility] Calcium [Mass/Vol] 8.9 mg/dL Normal 8.9 - 11. 1 mg/dL [facility] Chloride [Moles/Vol] 108 mmol/L Normal 101 - 1 11 mmol/L [facility] CO2 [Moles/Vol] 26 mmol/L Normal 21 - 31 mmol/L [facility] Creatinine [Mass/Vol] 0.6 mg/dL Normal 0.5 - 1.3 mg/dL [facility] Chem eGFR 126 mL/min/1.73 m2 Normal >=59mL/mi n/ 1.73 m2 [facility] Globulin (S) [Mass/Vol] 3.2 g/dL Normal 1.4 - 4.0 gm/dL [facility] Glucose [Mass/Vol] 113 mg/dL Normal 55 - 199 mg/dL [facility] Lipase [Catalytic activity/Vol] 30 U/L Normal 13 - 58 unit/L [facility] Potassium [Moles/Vol] 3.4 mmol/L Low 3.5 - 5.3 mmol/L [facility] Protein [Mass/Vol] 7.0 g/dL Normal 6.0 - 7.8 gm/dL [facility] Sodium [Moles/Vol] 144 mmol/L Normal 135 - 145 mmol/L [facility] Urea nitrogen [Mass/Vol] 9 mg/dL Normal 5 - 21 mg/dL [facility] Urea nitrogen/Creatinine [Mass ratio] 15 mg/mg Normal 10 - 20 [facility] ED Clinical Summaryon 2024 ED Clinical Summary ED Clinical Summary [place] [id number] ED Clinical Summary Person Information Name: SCARLET DURAND [facility] Age: 24 Years : 2000 Sex: Female Language: Venezuelan PCP: DOREEN HA CNP Marital Status: Phone: [phone] Visit Id: Visit Reason: Hemorrhoids; Diarrhea; Nausea and vomiting; VOMITING, DIARRHEA Speciality: Acuity: 3 Enc Type: Emergency Med Service: Emergency Arrival: 10/30/2024 16:46:49 Discharge: 10/30/2024 19:27:13 LOS: 000 02:41 Checkin: 10/30/2024 16:46:49 Checkout: 10/30/2024 19:27:13 Dispo Type: Home (Routine DC) EVENTS: Event Name Event Status Request Date/Time Start Date/Time Complete Date/Time Arrive Complete 10/30/2024 16:46:49 10/30/2024 16:46:49 10/30/2024 16:46:49 Document Home Meds Request 10/30/2024 16:46:49 Triage Complete 10/30/2024 16:46:49 10/30/2024 16:52:03 10/30/2024 16:52:03 Bed Assign Complete 10/30/2024 16:48:36 10/30/2024 16:48:36 10/30/2024 16:48:36 Dr Exam Complete 10/30/2024 16:48:36 10/30/2024 16:49:12 10/30/2024 16:49:12 RN Exam Complete 10/30/2024 16:48:36 10/30/2024 17:26:05 10/30/2024 17:26:05 Registration Complete 10/30/2024 16:49:12 10/30/2024 16:49:51 10/30/2024 16:49:51 Reg Complete Request 10/30/2024 16:49:51 Reg Bed Request Complete 10/30/2024 16:49:51 10/30/2024 16:49:51 10/30/2024 16:49:51 Meds Admin Complete 10/30/2024 16:58:46 10/30/2024 17:16:32 Pending Labs Complete 10/30/2024 16:58:46 10/30/2024 17:47:38 Lab Complete 10/30/2024 16:58:46 10/30/2024 17:47:38 Pending Labs Complete 10/30/2024 17:18:56 10/30/2024 17:18:56 10/30/2024 17:47:38 Lab Complete 10/30/2024 17:18:56 10/30/2024 17:18:56 10/30/2024 17:47:38 Discharge Complete 10/30/2024 18:35:30 10/30/2024 19:27:18 10/30/2024 19:27:18 Transfer Complete 10/30/2024 19:27:18 10/30/2024 19:27:18 10/30/2024 19:27:18 ADDRESS: [address] [facility] [id number] PHYS DOC NOTES: MEDICAL INFORMATION: Prescriptions Given: Medications to Continue Taking That Have Changed [facility], [address] [place] [phone], [phone] START: ondansetron (ondansetron 4 mg Dis Tab) 1 Tablets By Mouth every 6 hours for 3 Days. Refills: 0. Other Medications START: ondansetron (Zofran ODT 4 mg Tab-Dis) 1 Tablets By Mouth every 8 hours. Refills: 0. START: ondansetron (Zofran ODT 4 mg Tab-Dis) 1 Tablets By Mouth 3 times a day. Refills: 0. START: ondansetron (Zofran ODT 4 [...] day. Refills: 0. PATIENT EDUCATION INFORMATION: Instructions: Follow up: With: Address: When: [address] [place] [address] Business (1) In 3 days DIAGNOSIS: Gastroenteritis Normal Daily [facility] ED Note-Physicianon 10-31-19 25 ED Note-Physician ED Note-Physician Basic Information Time Seen: Blake Rivera DO 10/30/2024 16:49 Chief Complaint pt reports n/v/d that started within the past 24 hours. when asked if pt had pain pt stated if you count my hemorrhoids and yeast infection, I'm doing fine . History of Present Illness 24 female presents emergency department with nausea vomiting diarrhea. Patient states that she has had this over the last 24 hours. Patient states that her kids have similar symptoms here within the last few days as well. She tried Zofran at home without relief of symptoms. She does describe diffuse abdominal discomfort with this. She denies any chance of stating previous history of tubal ligation. She has no other associated symptoms or complaints no other prior treatments. No other aggravating or relieving factors no other associated symptoms no other prior treatments or complaints. Family: Reviewed and noncontributory Social: lives at home Review of systems negative unless otherwise specified in the HPI. Physical Exam Vitals & Measurements T: 36.9 ???C(Oral) HR: 86(Peripheral) RR: 20 BP: 128/86 SpO2: 99% HT: 162 cm WT: 121.8 kg BMI: 46.41 General: The patient appears [...] normal ROM, no deformity, no swelling GI: Soft no obvious distention. No rebound or rigidity. No guarding. No tenderness. Neurological: A&O moves all extremities equal strength and symmetry Psychiatric: Cooperative and appropriate Medical Decision Making Workup in the ER has been reviewed and noted. Workup here is essentially benign patient does feel better after treatment with Phenergan and fluids. She is able to tolerate p.o. challenge ultimately she is discharged home on Zofran follow-up the outpatient setting return to ER symptoms change or worsen. Assessment/Plan Gastroenteritis (K52.9: Noninfective gastroenteritis and colitis, unspecified) Orders: fluconazole, 150 mg = 1 tab(s), Oral, Once, Take one tab by mouth daily, # 1 tab(s), Refills(s) 0, Pharmacy: [facility], 162, cm, 10/30/24 16:52:00 EDT, Height/Length Dosing, 121.8, kg, 10/30/24 16:52:00 EDT, Weight Dosing ondansetron, 4 mg = 1 tab(s), Oral, q6hr, X 3 day(s), # 10 tab(s), Refills(s) 0, Pharmacy: [facility], 162, cm, 10/30/24 16:52:00 EDT, Height/Length Dosing, 121.8, kg, 10/30/24 16:52:00 EDT, Weight Dosing promethazine 25 mg + Sodium Chloride 0.9% intravenous solution 50 mL, Injection, IV Piggyback, Once, Stop date 10/30/24 16:58:00 EDT, STAT, Start date 10/30/24 16:58:00 EDT, 153 mL/hr, Infuse over 20 minute(s) Sodium Chloride 0.9% intravenous solution, 1,000 mL, Soln-IV, IV, Once, Stop date 10/30/24 16:58:00 EDT, STAT, Start date 10/30/24 16:58:00 EDT, Infuse over 61, minute(s) Basic Metabolic Panel CBC w/ Auto Diff eGFR Hepatic Function Panel Lipase Level Medications Administered Given NS 1000 ml Bolus, 1000 mL, IV [id number] [F] 25 mg + Sodium Chloride 0.9% IV Guerita 50 mL [F] 50 mL, IV Piggyback Disposition Plan Discharge Prescription List Prescriptions ondansetron 4 mg Dis Tab, 4 mg= 1 tab(s), Oral, q6hr Follow-up With When Contact Information DOREEN HA In 3 days [address] [place] [address]- Business (1) Additional Instructions: Problem List/Past Medical History Ongoing Adult BMI [...] 27-JAN-2014 12:37:00<$> Procedure/Surgical History None. Medications Inpatient NS 1000 ml Bolus, 1000 mL, IV, Once promethazine additive 25 mg + Sodium Chloride 0.9% IV Guerita 50 mL (INT) 50 mL Home Bactrim D.S. 800 mg-160 mg Tab, 1 tab(s), Oral, BID cyclobenzaprine 10 mg Tab, 10 mg= 1 tab(s), Oral, TID, PRN ibuprofen 600 mg Tab, 600 mg= 1 tab(s), Oral, q6hr Lidocaine 2% Viscous, 0.1 gm= 5 mL, Topical, QIDACHS Naprosyn 500 mg Tab, 500 mg= 1 tab(s), Oral, BID Naprosyn 500 mg Tab, 500 mg= 1 tab(s), Oral, BID, PRN (more content not included)... Normal [facility] Comment on above: Result Comment: Elec tronically Signed By: Blake Rivera DO\.br\Date and Time Signed: 10/30/24 18:43 EDT ED Patient Education Noteon 10-30-2024 ED Patient Education Note ED Patient Education Note Normal [facility] ED Patient Summaryon 025 ED Patient Summary ED Patient Summary [place] [id number] Patient Discharge Instructions Person Information Name: SCARLET DURAND Age: 24 Years Arrival Date: 10/30/2024 16:46:49 Discharge Diagnosis: Gastroenteritis Primary Care Physician: DOREEN HA CNP Provider Information Primary Provider: Blake Rivera DO Advanced Ship Loader:None The exam and treatment you received in the Emergency Department were for an urgent problem and are not intended as complete care. It is important that you follow up with a doctor, nurse practitioner, or physician???s therapist's assistant for ongoing care. If your symptoms become worse or you do not improve as expected and you are unable to reach your usual health care provider, you should return to the Emergency Department. We are available 24 hours a day. SCARLET DURAND has been given the following list of patient education materials, prescriptions and follow-up instructions: Follow-up Instructions: With: Address: When: [address] [place], [place] [id number] Business (1) In 3 days In the event that this physician does not participate in your insurance network, please consult with your insurance company to find a nearby participating provider. Patient Education Materials: A MESSAGE TO ALL PATIENTS REGARDING OPIOIDS PRESCRIPTION OPIOIDS: WHAT YOU NEED TO KNOW Prescription opioids can be used to help relieve slrkmihw-df-irzlcu pain and are often prescribed following a [...] be struggling with addiction, tell your health child adolescent care and ask for guidance or call [facility]???S Nory (more content not included)... Normal [facility] Extra Blueon 10-30-2024 Tube Collected Plasma Yes Invalid Interpretation Code [facility] Comment on above: Performed By: #### 1 [id number] #### [facility] [address] [place] [address] HEMATOLOGYOrdered By: SYSTEM SYSTEM on 10-30-2024 Basophils/100 WBC (Bld) 0.5 % Normal 0.0 - 2.0 % [facility] Heme Basophils/Leukocytes Auto (Bld) [Pure # fraction] 0.1 E9/L Normal 0.0 - 0.2 E9/L [facility] Heme Eosinophils (Bld) [#/Vol] 0.1 E9/L Normal 0.0 - 0.5 E9/L [facility]e Eosinophils/100 WBC (Bld) 0.6 % Normal 0.0 - 8.0 % [facility] Heme Erythrocyte distribution width (RBC) [Ratio] 15.4 % High 10.9 - 14.2 % [facility] Hematocrit (Bld) [Volume fraction] 36.4 % Normal 34.0 - 46.0 % [facility]e Hemoglobin (Bld) [Mass/Vol] 12.3 g/dL Normal 12.0 - 16.0 gm/dL [facility]e Lymphocytes (Bld) [#/Vol] 3.1 E9/L Normal 1.0 - 4.0 E9/L [facility] Lymphocytes/100 WBC (Bld) 26.5 % Normal 14.0 - 50.0 % [facility]e MCH (RBC) [Entitic mass] 26.0 pg Low 27.0 - 34.0 pg [facility] Heme MCHC (RBC) [Mass/Vol] 33.8 g/dL Normal 31.4 - 36.0 gm/dL [facility]e MCV (RBC) [Entitic vol] 76.8 fL Low 80.0 - 100.0 fL [facility]e Monocytes (Bld) [#/Vol] 0.6 E9/L Normal 0.2 - 1.0 E9/L [facility]e Monocytes/100 WBC (Bld) 5.1 % Normal 4.0 - 14.0 % [facility] Neutrophils (Bld) [#/Vol] 8.0 E9/L High 2.0 - 7.5 E9/L [facility] Neutrophils/100 WBC (Bld) 67.3 % Normal 36.0 - 75.0 % [facility]e Platelet 314.0 E9/L Normal 150.0 - 500.0 E9/L [facility]e Platelet mean volume (Bld) [Entitic vol] 8.3 fL Normal 6.4 - 10.8 fL [facility] Heme RBC (Bld) [#/Vol] 4.7 E12/L Normal 4.3 - 5.9 E12/L [facility]e WBC corrected for nucl RBC Auto (Bld) [#/Vol] 11.8 E9/L High 4.0 - 11.0 E9/L [facility] Heme Hep Func Panelon 10-30-2024 Albumin [Mass/Vol] 3.8 g/dL Normal 3.3-5.0 [facility] Comment on above: Performed By: #### 2 [id number] #### [facility] [address] [place] [address] Albumin/Globulin (S) [Mass conc ratio] 1.2 Normal 1.1-2.2 [facility] Comment on above: Performed By: #### 2 [id number] #### [facility] [address] [place] [address] ALP [Catalytic activity/Vol] 57 Int._Unit/L Normal 21-98 [facility] Comment on above: Performed By: #### 2 [id number] #### [facility] [address] [place] [address] ALT No additional P-5'-P [Catalytic activity/Vol] 10 Int._Unit/L Normal 6-46 [facility] Comment on above: Performed By: #### 2 [id number] #### [facility] [address] [place] [address] AST [Catalytic activity/Vol] 12 Int._Unit/L Normal 5-43 [facility] Comment on above: Performed By: #### 2 [id number] #### [facility] [address] [place] [address] Bilirubin [Mass/Vol] 0.3 mg/dL Normal 0.0-1.1 [facility] Comment on above: Performed By: #### 2 417152 #### [facility] [address] [place] [address] Bilirubin.direct [Mass/Vol] 0.0 mg/dL Normal 0.0-0.4 [facility] Comment on above: Performed By: #### 2 [id number] #### [facility] [address] [place] [address] Bilirubin.indirect [Mass or moles/Vol] 0.3 mg/dL Normal 0.1-0.9 [facility] Comment on above: Performed By: #### 2 [id number] #### [facility] [address] [place] [address] Globulin (S) [Mass/Vol] 3.2 g/dL Normal 1.4-4.0 [facility] Comment on above: Performed By: #### 2 448493 #### [facility] [address] [place] [address] Protein [Mass/Vol] 7.0 g/dL Normal 6.0-7.8 [facility] Comment on above: Performed By: #### 2 285437 #### [facility] [address] [place] [address] Lipase Levelon 10-30-2024 Lipase [Catalytic activity/Vol] 30 U/L Normal 13-58 [facility] Comment on above: Performed By: #### 2 [id number] #### [facility] [address] [place] [address] eGFRon 10-30-2024 eGFR 126 mL/min/1.73 m2 Normal >=59 [facility] Comment on above: Performed By: #### 1 [id number] #### [facility] [address] [place] [address] Urine Cultureon 10-16-2024 Bacteria identified Cx Nom (U) ORGANISM: Escherichia coli (O:ESCCOL) [place] Count >100,000 Aerobic NAOMI Charge (NMIC56) -- SUSCEPTIBILITY - ORGANISM: O:ESCCOL ANTIBIOTIC INTERPRETATION NAOMI Amikacin S <16 Amoxacillin/K Clavulanate S <8 Ampicillin S <8 Ampicillin/Sulbactam S <4 Aztreonam S <4 Cefazolin S <2 Cefepime S <2 Ceftazidime S <1 Ceftazidime/Avibactam S <4 Ceftolozane/Tazobactam S <2 Ceftriaxone S <1 Cefuroxime S <4 Ciprofloxacin S <0.25 Ertapenem S <0.5 Gentamicin S <2 Levofloxacin S <0.5 Meropenem S <1 Meropenem/Vaborbactam S <2 Nitrofurantoin S <32 Piperacillin/Tazobactam S <8 Tetracycline S <4 Tigecycline S <2 Tobramycin S <2 Trimethoprim/Sulfametho xazole S <0.5 S = SUSCEPTIBLE I = INTERMEDIATE R = RESISTANT BLANK = DATA NOT AVAILABLE, OR DRUG NOT ADVISABLE OR TESTED R* = RESISTANCE DUE TO EXTENDED SPECTRUM BETA-LACTAMASES ESBL = EXTENDED SPECTRUM BETA-LACTAMASE TFG = THYMIDINE-DEPENDENT STRAIN ZACARIAS = BETA-LACTAMASE POSITIVE IB = INDUCIBLE BETA-LACTAMASE. APPEARS IN PLACE OF 'S' WITH SPECIES KNOWN TO POSSESS INDUCIBLE BETA-LACTAMASES. POTENTIALLY THEY MAY BECOME RESISTANT TO ALL B-LACTAM DRUGS. PERFORMED BY: [place] [id number] PATHOLOGIST BAND SAW OPERATOR GRISELDA Cummings [facility] Comment on above: Performed By: #### C UU #### [address] XR Ankle 3+ Views Lefton XR Ankle [...] MD Transcribed by: SURINDER Technologist: PRISCILLA Cummings [facility] XR Wrist 3+ Views Lefton XR Wrist [...] MD Transcribed by: SURINDER Technologist: PRISCILLA Cummings [facility] ED Clinical Summaryon 2024 ED Clinical Summary ED Clinical Summary [place] [id number] ED Clinical Summary Person Information Name: SCARLET DURAND [facility] Age: 24 Years : 2000 Sex: Female Language: Venezuelan PCP: DOREEN HA CNP Marital Status: Phone: [phone] Visit Id: Visit Reason: Wrist pain-swelling; Wrist [...] 10/08/2024 23:06:58 10/08/2024 23:06:58 10/08/2024 23:06:58 ADDRESS: [address] [place] [address] [address] [facility] [id number] PHYS DOC NOTES: MEDICAL INFORMATION: Prescriptions Given: [...] Ankle Sprain Follow up: With: Address: When: [place] [address] Business (1) In 7 days 10/15/2024 DIAGNOSIS: Left wrist sprain; Sprain of ankle, left Normal [facility] ED Note-Physicianon 10-09-19 ED Note-Physician ED Note-Physician [...] and Complexity of Problems Differential Diagnosis: [] [facility] Data External documents reviewed: N/A My [...] HA In 7 days 10/15/2024 EDT [address] [place] [address] Business (1) Additional Instructions: Patient Education Wrist Sprain, [...] mg Ta (more content not included)... Normal [facility] Comment on above: Result Comment: Elec tronically Signed By: Eric Ramírez DO\.br\Date and Time Signed: 10/08/24 22:53 EDT ED Patient Summaryon 025 ED Patient Summary ED Patient Summary [address] [address] Patient Discharge Instructions Person Information Name: SCARLET DURAND Age: 24 Years Arrival Date: 10/08/2024 21:15:19 Discharge Diagnosis: Left wrist sprain; Sprain of ankle, left Primary Care Physician: DOREEN HA CNP Provider Information Primary Provider: Eric Ramírez DO Advanced Ship Loader:None The exam and treatment you received in the Emergency Department were for an urgent problem and are not intended as complete care. It is important that you follow up with a doctor, nurse practitioner, or physician???s therapist's assistant for ongoing care. If your symptoms [...] Follow-up Instructions: With: Address: When: DOREEN HA [address] [place], [place] [address] [place] [phone] Business (1) In 7 days 10/15/2024 In the event that this physician does not participate in your insurance network, please consult with your insurance company to find a nearby participating provider. Patient Education Materials: Wrist Sprain, Adult; Ankle Sprain A MESSAGE TO ALL PATIENTS REGARDING OPIOIDS PRESCRIPTION OPIOIDS: WHAT YOU NEED TO KNOW Prescription opioids can be used to help relieve migkjnrh-vv-dikrxr pain and are often prescribed following a [...] from the Food and Drug Administration (www.fda.gov/Drugs/Reso [place]). ??? Visit www.cdc.gov/drugoverdos e to learn about the risks of opioids abuse and overdose. ??? If you believe you may be struggling with addiction, tell (more content not included)... Normal [facility] Quantiferon-TB Plus (Client Incubated)on 09-10-2024 Gamma interferon background IA Qn (Bld) 0.00 International_Unit/mL Invalid Interpretation Code [facility] Comment on above: Performed By: #### 1 [id number] #### [facility] [address] [place] [address] M. tuberculosis stim IFN-g by CD4+ CD8+ T-cells corrected for background Qn (Bld) 0.00 International_Unit/mL Invalid Interpretation Code [facility] Comment on above: Performed By: #### 1 [id number] #### [facility] [address] [place] [address] M. tuberculosis stim IFN-g by CD4+ T-cells corrected for background Qn (Bld) 0.00 International_Unit/mL Invalid Interpretation Code [facility] Comment on above: Performed By: #### 1 [id number] #### [facility] [address] [place] [address] M. tuberculosis stim IFN-g Ql (Bld) [Interp] Negative Invalid Interpretation Code Negative [facility] Comment on above: Result Comment: No r [...] interferon gamma. Chemiluminescence immunoassay methodology Performed at: [address] [id number] PhD Hong Parker Performed By: #### 1 [id number] #### [facility] [address] [place] [id number] Mitogen stimulated gamma interferon corrected for background Qn (Bld) >10.00 Invalid Interpretation Code [facility] Comment on above: Performed By: #### 1 [id number] #### [facility] [address] [place] [address] Service comment (Unsp spec) [Interp] Comment Invalid Interpretation Code [facility] Comment on above: Result Comment: Roman tiFERON-TB [...] for the test. Performed By: #### 1 [id number] #### [facility] [address] [place] [address] Hep Bs Abon 09-09-2024 HBV surface Ab Ql (S) Reactive Invalid Interpretation Code [facility] Comment on above: Result Comment: Non Reactive: Not immune to HBV infection. Equivocal: Unable to determine if anti-HBs is present at levels consistent with immunity. Reactive: Anti-HBs concentration detected at greater than 10 mIU/mL. Individual is considered to be immune to infection with HBV. Performed at: [address] [id number] PhD Hong Parker Performed By: #### 2 [id number] #### [facility] [address] [place] [address] Measles/Mumps/Rubella Immuni tyon 09-09-2024 MeV IgG IA Qn (S) 183.0 A unit/mL Invalid Interpretation Code Immune >16.4 [facility] Comment on above: Result Comment: Nega tive <13.5 Equivocal 13.5 - 16.4 Positive >16.4 Presence of antibodies to Rubeola is presumptive evidence of immunity except when acute infection is suspected. Performed By: #### 3 [id number] #### [facility] [address] [place] [address] MuV IgG IA Qn (S) <9.0 Low Immune >10.9 [facility] Comment on above: Result Comment: Nega tive <9.0 Equivocal 9.0 - 10.9 Positive >10.9 A positive result generally indicates past exposure to Mumps virus or previous vaccination. Performed at: [facility] [id number] PhD Hong Parker Performed By: #### 3 [id number] #### [facility] [address] [place] [address] Rubella virus IgG Qn (S) 3.81 [IU]/mL Invalid Interpretation Code Immune >0.99 [facility] Comment on above: Result Comment: Non- immune <0.90 Equivocal 0.90 - 0.99 Immune >0.99 Performed By: #### 3 [id number] #### [facility] [address] [place] [address] Varic IgGon 09-09-2024 VZV IgG IA Ql (S) Reactive Invalid Interpretation Code Non Reactive [facility] Comment on above: Result Comment: Pl ease note reference interval change A Reactive result is considered evidence of immunity to VZV. Reactive indicates that VZV IgG was detected consistent with previous infection and/or vaccination. A Non Reactive result indicates that VZV IgG was not detected suggesting that immunity has not been acquired. Performed at: [facility] [address] [place] [address] [id number] PhD Hong Parker Performed By: #### 1 [id number] #### [facility] [address] [place] [address] XR Spine Lumbar Complete [facility] 07-13-2024 XR Spine Lumbar Complete Including Bendi [...] mGy = na DAP = na Normal [facility] XR Spine Thoracic 3 Viewson 07-13-2024 XR [...] mGy = na DAP = na Normal [facility] Reference Laboratory Testing Ordered By: Marybeth Savage on 07-08-2024 Other: -negative cough, sneeze, strain-positive occipital headaches [facility] Work Phone: T3 Totalon 06-01-2024 T3 [Mass/Vol] 103 ng/dL Invalid Interpretation Code [id number] [facility] Comment on above: Result Comment: Perf ormed at: [facility] [id number] PhD Hong Parker Performed By: #### 1 [id number] #### [facility] [address] [place] [address] XR Spine Cervical 4 or 5 Vie [...] REPORT Dictated: 06/01/2024 3:43 pm Edmond Newby MD. Signed (Electronic Signature): 06/01/2024 3:43 pm Signed by: Edmond Newby MD Transcribed by: SURINDER Technologist: JAMES Technical Comments Radiation Dose: Ka,r in mGy = . DAP = . Normal [facility] BNPon 05-31-2024 Int Ctr BNP Pass Normal [facility] Comment on above: Performed By: #### 1 [id number] #### [facility] [address] [place] [address] Natriuretic peptide B (Bld) [Mass/Vol] 8 pg/mL Normal 5-80 [facility] Comment on above: Performed By: #### 1 [id number] #### [facility] [address] [place] [address] CHEMISTRYOrdered By: SYSTEM SYSTEM on 05-31-2024 Albumin [...] Sensitivity Troponin I Instructions For Use, Judy Niranjan, February 2018) TSH Qn 1.13 m[IU]/L Normal 0.34 - 5.60 mcIU/mL Remisol Chem Urea nitrogen [Mass/Vol] 10 mg/dL Normal 5 - 21 mg/dL Remisol Chem Urea nitrogen/Creatinine [Mass ratio] 14 mg/mg Normal 10 - 20 Remisol Chem CHEMISTRYOrdered By: Lou Cuellar on 05-31-2024 Natriuretic peptide B (Bld) [Mass/Vol] 8 pg/mL Normal 5 - 80 pg/mL [facility] R[facility] Albumin [Mass/Vol] 4.1 g/dL Normal 3.3-5.0 [facility] Comment on above: Performed By: #### 2 [id number] #### [facility] [address] [place] [address] Albumin/Globulin (S) [Mass conc ratio] 1.2 Normal 1.1-2.2 [facility] Comment on above: Performed By: #### 2 [id number] #### [facility] [address] [place] [address] ALP [Catalytic activity/Vol] 63 Int._Unit/L Normal 21-98 [facility] Comment on above: Performed By: #### 2 [id number] #### [facility] [address] [place] [address] ALT No additional P-5'-P [Catalytic activity/Vol] 10 Int._Unit/L Normal 6-46 [facility] Comment on above: Performed By: #### 2 [id number] #### [facility] [address] [place] [address] Anion gap [Moles/Vol] 9 mmol/L Normal 6-16 [facility] Comment on above: Performed By: #### 2 [id number] #### [facility] [address] [place] [address] AST [Catalytic activity/Vol] 10 Int._Unit/L Normal 5-43 [facility] Comment on above: Performed By: #### 2 [id number] #### [facility] [address] [place] [address] Bilirubin [Mass/Vol] 0.4 mg/dL Normal 0.0-1.1 [facility] Comment on above: Performed By: #### 2 [id number] #### [facility] [address] [place] [address] Calcium [Mass/Vol] 9.2 mg/dL Normal 8.9-11.1 [facility] Comment on above: Performed By: #### 2 [id number] #### [facility] [address] [place] [address] Chloride [Moles/Vol] 102 mmol/L Normal 101-111 [facility] Comment on above: Performed By: #### 2 139765 #### [facility] [address] [place] [address] CO2 [Moles/Vol] 31 mmol/L Normal 21-31 [facility] Comment on above: Performed By: #### 2 117510 #### [facility] [address] [place] [address] Creatinine [Mass/Vol] 0.7 mg/dL Normal 0.5-1.3 [facility] Comment on above: Performed By: #### 2 928368 #### [facility] [address] [place] [address] Globulin (S) [Mass/Vol] 3.4 g/dL Normal 1.4-4.0 [facility] Comment on above: Performed By: #### 2 780446 #### [facility] [address] [place] [address] Glucose [Mass/Vol] 88 mg/dL Normal 55-199 [facility] Comment on above: Performed By: #### 2 883560 #### [facility] [address] [place] [address] Potassium [Moles/Vol] 4.3 mmol/L Normal 3.5-5.3 [facility] Comment on above: Performed By: #### 2 200088 #### [facility] [address] [place] [address] Protein [Mass/Vol] 7.5 g/dL Normal 6.0-7.8 [facility] Comment on above: Performed By: #### 2 [id number] #### [facility] [address] [place] [address] Sodium [Moles/Vol] 138 mmol/L Normal 135-145 [facility] Comment on above: Performed By: #### 2 365658 #### [facility] [address] [place] [address] Urea nitrogen [Mass/Vol] 10 mg/dL Normal 5-21 [facility] Comment on above: Performed By: #### 2 [id number] #### [facility] [address] [place] [address] Urea nitrogen/Creatinine [Mass ratio] 14 No Units Normal 10-20 [facility] Comment on above: Performed By: #### 2 [id number] #### [facility] [address] [place] [address] T4 & TSHon 05-31-2024 T4 [Mass/Vol] 6.6 microgram/dL Normal 4.6-9.1 [facility] Comment on above: Performed By: #### 1 [id number] #### [facility] [address] [place] [address] TSH Qn 1.13 m[IU]/L Normal 0.34-5.60 [facility] Comment on above: Performed By: #### 1 [id number] #### [facility] [address] [place] [address] Troponinon 05-31-2024 Troponin HS <2.30 Low 10.10-27.10 [facility] Comment on above: Result Comment: The 95% CI (Confidence Interval) PPV (Positive Predictive Value) for myocardial infarction in females is 38 pg/mL, in males 51 pg/mL. The results should be used in conjunction with clinical conditions of myocardial infarction. (Access High Sensitivity Troponin I Instructions For Use, Judy Slingerlands, February 2018) Performed By: #### 2 [id number] #### [facility] [address] [place] [address] eGFRon 05-31-2024 eGFR 122 mL/min/1.73 m2 Normal >=59 [facility] Comment on above: Performed By: #### 1 [id number] #### [facility] [address] [place] [address] B hCG Qualon 05-30-2024 Beta HCG ( test) Ql Negative Normal [facility] Comment on above: Performed By: #### 2 [id number] #### [facility] [address] [place] [address] BMPon 05-30-2024 Anion gap [Moles/Vol] 11 mmol/L Normal 6-16 [facility] Comment on above: Performed By: #### 2 924790 #### [facility] [address] [place] [address] Calcium [Mass/Vol] 8.7 mg/dL Low 8.9-11.1 [facility] Comment on above: Performed By: #### 2 169589 #### [facility] [address] [place] [address] Chloride [Moles/Vol] 104 mmol/L Normal 101-111 [facility] Comment on above: Performed By: #### 2 944683 #### [facility] [address] [place] [address] CO2 [Moles/Vol] 26 mmol/L Normal 21-31 [facility] Comment on above: Performed By: #### 2 340694 #### [facility] [address] [place] [address] Creatinine [Mass/Vol] 0.7 mg/dL Normal 0.5-1.3 [facility] Comment on above: Performed By: #### 2 836630 #### [facility] [address] [place] [address] Glucose [Mass/Vol] 115 mg/dL Normal 55-199 [facility] Comment on above: Performed By: #### 2 864958 #### [facility] [address] [place] [address] Potassium [Moles/Vol] 3.8 mmol/L Normal 3.5-5.3 [facility] Comment on above: Performed By: #### 2 662838 #### [facility] [address] [place] [address] Sodium [Moles/Vol] 137 mmol/L Normal 135-145 [facility] Comment on above: Performed By: #### 2 392063 #### [facility] [address] [place] [address] Urea nitrogen [Mass/Vol] 12 mg/dL Normal 5-21 [facility] Comment on above: Performed By: #### 2 416285 #### [facility] [address] [place] [address] Urea nitrogen/Creatinine [Mass ratio] 17 No Units Normal 10-20 [facility] Comment on above: Performed By: #### 2 185614 #### [facility] [address] [place] [address] CBC w/ Auto Diffon 4 Basophils/100 WBC (Bld) 0.5 % Normal 0.0-2.0 [facility] Comment on above: Performed By: #### 2 296726 #### [facility] [address] [place] [address] Basophils/Leukocytes Auto (Bld) [Pure # fraction] 0.1 E9/L Normal 0.0-0.2 [facility] Comment on above: Performed By: #### 2 [id number] #### [facility] [address] [place] [address] Eosinophils (Bld) [#/Vol] 0.1 E9/L Normal 0.0-0.5 [facility] Comment on above: Performed By: #### 2 305447 #### [facility] [address] [place] [address] Eosinophils/100 WBC (Bld) 0.5 % Normal 0.0-8.0 [facility] Comment on above: Performed By: #### 2 236265 #### [facility] [address] [place] [address] Erythrocyte distribution width (RBC) [Ratio] 16.3 % High 10.9-14.2 [facility] Comment on above: Performed By: #### 2 969489 #### [facility] [address] [place] [address] Hematocrit (Bld) [Volume fraction] 36.0 % Normal 34.0-46.0 [facility] Comment on above: Performed By: #### 2 [id number] #### [facility] [address] [place] [address] Hemoglobin (Bld) [Mass/Vol] 12.0 g/dL Normal 12.0-16.0 [facility] Comment on above: Performed By: #### 2 710679 #### [facility] [address] [place] [address] Lymphocytes (Bld) [#/Vol] 2.5 E9/L Normal 1.0-4.0 [facility] Comment on above: Performed By: #### 2 395190 #### [facility] [address] [place] [address] Lymphocytes/100 WBC (Bld) 20.1 % Normal 14.0-50.0 [facility] Comment on above: Performed By: #### 2 426154 #### [facility] [address] [place] [address] MCH (RBC) [Entitic mass] 25.4 pg Low 27.0-34.0 [facility] Comment on above: Performed By: #### 2 217852 #### [facility] [address] [place] [address] MCHC (RBC) [Mass/Vol] 33.5 g/dL Normal 31.4-36.0 [facility] Comment on above: Performed By: #### 2 303905 #### [facility] [address] [place] [address] MCV (RBC) [Entitic vol] 75.8 fL Low 80.0-100.0 [facility] Comment on above: Performed By: #### 2 823976 #### [facility] [address] [place] [address] Monocytes (Bld) [#/Vol] 0.6 E9/L Normal 0.2-1.0 [facility] Comment on above: Performed By: #### 2 757776 #### [facility] [address] [place] [address] Neutrophils (Bld) [#/Vol] 9.2 E9/L High 2.0-7.5 [facility] Comment on above: Performed By: #### 2 029783 #### [facility] [address] [place] [address] Neutrophils/100 WBC (Bld) 73.9 % Normal 36.0-75.0 [facility] Comment on above: Performed By: #### 2 730174 #### [facility] [address] [place] [address] Platelet 424.0 E9/L Normal 150.0-500.0 [facility] Comment on above: Performed By: #### 2 916987 #### [facility] [address] [place] [address] Platelet mean volume (Bld) [Entitic vol] 7.8 fL Normal 6.4-10.8 [facility] Comment on above: Performed By: #### 2 411392 #### [facility] [address] [place] [address] RBC (Bld) [#/Vol] 4.8 E12/L Normal 4.3-5.9 [facility] Comment on above: Performed By: #### 2 777652 #### [facility] [address] [place] [address] WBC corrected for nucl RBC Auto (Bld) [#/Vol] 12.4 E9/L High 4.0-11.0 Daily [facility] Comment on above: Performed By: #### 2 [id number] #### [facility] [address] [place] [address] CHEMISTRYOrdered By: SYSTEM SYSTEM on 05-30-2024 Anion [...] Sensitivity Troponin I Instructions For Use, Judy Slingerlands, February 2018) Urea nitrogen [Mass/Vol] 12 mg/dL Normal 5 - 21 mg/dL Remisol Chem Urea nitrogen/Creatinine [Mass ratio] 17 mg/mg Normal 10 - 20 Remisol Chem COAGULATIONOrdered By: Aby Kearns on 05-30-2024 aPTT Coag (PPP) [Time] 35.3 s Normal 25.1 - 36.5 second(s) [facility] Comment on above: Interpretive Data: P arameter 15 days - 4 weeks 1 - 5 months 6 - 11 months 1 - 5 years 6 - 10 years 11 - 17 years PTT Mean: 35.4 (27.6-45.6) Mean: 33.5 (24.8-40.7) Mean: 32.4 (25.1-40.7) Mean: 31.6 (24.0-39.2) Mean: 31.6 (26.9-38.7) Mean: 31.0 (24.6-38.4) Pediatric Reference ranges were obtained from a study by jessica Graham alJp prepared from 1437 samples obtained at 7 different centers using the same coagulation reagent and instrumentation as [facility]. Currently there are no coagulation studies available worldwide for children to 14 days, and no normal ranges. Heparin therapeutic range (represented by Anti-Factor Xa activity of 0.2 - 0.4 U/mL) corresponds to PTT of 56.6 - 109.0 sec. INR Coag (PPP) [Relative time] 1.08 {INR} Invalid Interpretation Code [facility] Comment on above: Interpretive Data: I NR results are specifically intended to assess patients stabilized on long-term Anticoagulation therapy suggested INR s Less Intensive Anticoagulation 2.0 3.0 Conventional Range 3.0 4.5 PT Coag (PPP) [Time] 12.1 s Normal 9.4 - 1 2.5 second(s) [facility] Comment on above: Interpretive Data: 1 5 days - 4 weeks 1 - 5 months 6 -11 months 1-5 years 6-10 years 11 -17 years Mean: 11.2 (9.5-12.6) Mean: 11.0 (9.7-12.8) Mean: 11.0 (9.8-13.0) Mean: 11.3 (9.9-13.4) Mean: 11.7 (10.0-14.6) Mean: 11.8 (10.0 - 14.1) Pediatric Reference ranges were obtained from a study by jessica Graham alJp prepared from 1437 samples obtained at 7 different centers using the same coagulation reagent and instrumentation as [facility]. Currently there are no coagulation studies available worldwide for children to 14 days, and no normal ranges. ED Clinical Summaryon 2023 ED Clinical Summary ED Clinical Summary [address] [address] ED Clinical Summary Person Information Name: SCARLET DURAND [facility] Age: 24 Years : 2000 Sex: Female Language: Venezuelan PCP: DOREEN HA CNP Marital Status: Phone: [phone] Visit Id: Visit Reason: Arm pain-swelling; Chest [...] 05/30/2024 15:17:51 05/30/2024 15:17:51 05/30/2024 15:17:51 ADDRESS: [address] [place] [address] [address] [facility] [id number] PHYS DOC NOTES: MEDICAL INFORMATION: Prescriptions Given: New Medications [facility], [address] [place], [place] [id number], [phone] cyclobenzaprine (cyclobenzaprine 10 mg Tab) 1 Tablets [...] EDUCATION INFORMATION: Instructions: Nonspecific Chest Pain, Adult, Nunv-lj-Oomx Follow up: With: Address: When: [place] [address] [facility] ([employer] In 3 days 06/02/2024 Comments: Call Dr for diagnosis based follow up DIAGNOSIS: Nonspecific chest pain Normal [facility] ED Note-Physicianon 05-30-20 ED Note-Physician ED Note-Physician Basic Information Time Seen: Greyson MONDRAGON, Miguelito Solorzano. 05/30/2024 14:22 Chief Complaint c/o intermittent chest [...] and Complexity of Problems Differential Diagnosis: [] [facility] Data External documents reviewed: [] My [...] spasm, # 30 tab(s), Refills(s) 0, Pharmacy: [facility], 162, cm, 05/30/24 14:27:00 EST, Height/Length Dosing, 127, kg, 05/30/24 14:27:00 EST, Weight Dosing Basic Metabolic Panel Beta hCG Qual CBC w/ Auto Diff ED Cardiac Monitoring eGFR Oxygen Saturation Oxygen Therapy PT & PTT Saline Lock Insert Troponin 0 Hr. UA with Cult Rflx XR Chest Single View Disposition Plan Patient (more content not included)... Normal [facility] Comment on above: Result Comment: Elec tronically Signed By: Miguelito Rubi PA-C\.br\Date and Time Signed: 05/30/24 15:07 EST\.br\Electronically Co-Signed By: Ashley Faustin M.D.\.br\Date and Time Co-Signed: 05/30/24 15:09 EST ED Patient Summaryon 024 ED Patient Summary ED Patient Summary [address] [address] Patient Discharge Instructions Person Information Name: SCARLET DURAND Age: 24 Years Arrival Date: 05/30/2024 14:18:08 Discharge Diagnosis: Nonspecific chest pain Primary Care Physician: DOREEN HA CNP Provider Information Primary Provider: Ashley Faustin M.D. Advanced Ship Loader:None The exam and treatment you received in the Emergency Department were for an urgent problem and are not intended as complete care. It is important that you follow up with a doctor, nurse practitioner, or physician???s therapist's assistant for ongoing care. If your symptoms [...] Follow-up Instructions: With: Address: When: DOREEN HA [address] [place] [address] [address] [place] [phone] Business (1) In 3 days 06/02/2024 Comments: Call Dr for diagnosis based follow up In the event that this physician does not participate in your insurance network, please consult with your insurance company to find a nearby participating provider. Patient Education Materials: Nonspecific Chest Pain, Adult, Prud-yx-Lknw A MESSAGE TO ALL PATIENTS REGARDING OPIOIDS PRESCRIPTION OPIOIDS: WHAT YOU NEED TO KNOW Prescription opioids can be used to help relieve kwstvbhs-tm-iwxbgw pain and are often prescribed following a [...] you juana (more content not included)... [facility] HEMATOLOGYOrdered By: SYSTEM SYSTEM on 05-30-2024 Basophils/100 [...] Coag (PPP) [Time] 35.3 second(s) Normal 25.1-36.5 [facility] Comment on above: Result Comment: Para meter 15 days - 4 weeks 1 - 5 months 6 - 11 months 1 - 5 years 6 - 10 years 11 - 17 years PTT Mean: 35.4 (27.6-45.6) Mean: 33.5 (24.8-40.7) Mean: 32.4 (25.1-40.7) Mean: 31.6 (24.0-39.2) Mean: 31.6 (26.9-38.7) Mean: 31.0 (24.6-38.4) Pediatric Reference ranges were obtained from a study by jessica Graham al. prepared from 1437 samples obtained at 7 different centers using the same coagulation reagent and instrumentation as [facility]. Currently there are no coagulation studies available worldwide for children to 14 days, and no normal ranges. Heparin therapeutic range (represented by Anti-Factor Xa activity of 0.2 - 0.4 U/mL) corresponds to PTT of 56.6 - 109.0 sec. Performed By: #### 1 [id number] #### [facility] [address] [place] [address] INR Coag (PPP) [Relative time] 1.08 {INR} Invalid Interpretation Code [facility] Comment on above: Result Comment: INR results are specifically intended to assess patients stabilized on long-term Anticoagulation therapy suggested INR???s ???Less Intensive Anticoagulation??? 2.0 ??? 3.0 Conventional Range 3.0 ??? 4.5 Performed By: #### 1 [id number] #### [facility] [address] [place] [address] PT Coag (PPP) [Time] 12.1 second(s) Normal 9.4-12.5 [facility] Comment on above: Result Comment: 15 d [...] the same coagulation reagent and instrumentation as [facility]. Currently there are no coagulation studies available worldwide for children to 14 days, and no normal ranges. Performed By: #### 1 [id number] #### [facility] [address] [place] [address] SEROLOGYOrdered By: Ton Lerma on 05-30-2024 Beta HCG ( test) Ql Negative (05/30/24 2:32 PM) Normal [facility] Man Sero Troponin 0 Hr.on 05-30-2024 Troponin HS <2.30 Low 10.10-27.10 [facility] Comment on above: Result Comment: The 95% CI (Confidence Interval) PPV (Positive Predictive Value) for myocardial infarction in females is 38 pg/mL, in males 51 pg/mL. The results should be used in conjunction with clinical conditions of myocardial infarction. (Access High Sensitivity Troponin I Instructions For Use, Judy S[place], February 2018) Performed By: #### 1 [id number] #### [facility] [address] [place] [address] XR Chest Single Viewon 05-30 XR Chest [...] mGy = na DAP = na [facility] eGFRon 05-30-2024 eGFR 122 mL/min/1.73 m2 Normal >=59 [facility] Comment on above: Performed By: #### 1 [id number] #### [facility] [address] [place] [address] ED Clinical Summaryon 2023 ED Clinical Summary ED Clinical Summary [address] [address] ED Clinical Summary Person Information Name: SCARLET DURAND [facility] Age: 24 Years : 2000 Sex: Female Language: Venezuelan PCP: DOREEN HA CNP Marital Status: Phone: [phone] Visit Id: Visit Reason: Throat pain - [...] ADDRESS: [address] [place] [id number] PHYS DOC NOTES: MEDICAL INFORMATION: Prescriptions Given: New Medications [facility], [address] [place] [id number], [phone] amoxicillin (amoxicillin 500 mg Cap) 1 Capsules [...] Throat, Adult Follow up: With: Address: When: DOREEN [address] [place] [address] 5 CUPS and some sugar (1[employer] In 3 days 05/20/2024 DIAGNOSIS: Pharyngitis [facility] ED Note-Physicianon 05-17-20 ED Note-Physician ED Note-Physician [...] day(s), # 30 cap(s), Refills(s) 0, Pharmacy: [facility], 162, cm, 05/09/24 14:21:00 EDT, Height/Length [...] HA In 3 days 05/20/2024 EDT [address] [place] [address]- Business (1) Additional Instructions: Patient Education Strep Throat, [...] made to ensure accuracy, however, inadvertently computerized truck unloader mistakes may be present. Appropriate healthcare PPE [...] Unemployed, 0 (more content not included)... Normal [facility] Comment on above: Result Comment: Elec tronically Signed By: Lukas Hernandez PA-C\.br\Date and Time Signed: 05/17/24 08:46 EDT\.br\Electronically Co-Signed By: Bi Galeana DO\.br\Date and Time Co-Signed: 05/17/24 13:13 EDT ED Patient Summaryon 024 ED Patient Summary ED Patient Summary [place] [id number] Patient Discharge Instructions Person Information Name: SCARLET DURAND Age: 24 Years Arrival Date: 05/17/2024 08:29:16 Discharge Diagnosis: Pharyngitis Primary Care Physician: DOREEN HA CNP Provider Information Primary Provider: Bi Galeana DO Advanced Ship Loader:Lukas Hernandez PA-C The exam and treatment you received in the Emergency Department were for an urgent problem and are not intended as complete care. It is important that you follow up with a doctor, nurse practitioner, or physician?s therapist's assistant for ongoing care. If your symptoms [...] Follow-up Instructions: With: Address: When: DOREEN HA [address] [place], [place] [id number] Business (1) In 3 days 05/20/2024 In the event that this physician does not participate in your insurance network, please consult with your insurance company to find a nearby participating provider. Patient Education Materials: Strep Throat, Adult A MESSAGE TO ALL PATIENTS REGARDING OPIOIDS PRESCRIPTION OPIOIDS: WHAT YOU NEED TO KNOW Prescription opioids can be used to help relieve znslqvcc-gw-bdvpbr pain and are often prescribed following a [...] be struggling with addiction, tell your health child adolescent care and ask for guidance or call SAMHSA?S National Helpline at 2-852-7 (more content not included)... [facility] ED Clinical Summaryon 2023 ED Clinical Summary ED Clinical Summary [address] [address] ED Clinical Summary Person Information Name: SCARLET DURAND [facility] Age: 24 Years : 2000 Sex: Female Language: Venezuelan PCP: DOREEN HA CNP Marital Status: Phone: [phone] Visit Id: Visit Reason: Dental pain; MOUTH [...] 05/09/2024 16:19:02 05/09/2024 16:19:02 05/09/2024 16:19:02 ADDRESS: [address] [place] [address] [address] [facility] [id number] PHYS DOC NOTES: MEDICAL INFORMATION: Prescriptions Given: New Medications [facility] [address], [address] [place], [place] [id number], [phone] lidocaine topical (Lidocaine 2% Viscous) 5 Milliliter [...] 0. PATIENT EDUCATION INFORMATION: Instructions: Dental Pain, Eoxg-la-Fcbs Follow up: With: Address: When: Dental: [facility] [phone] In 3 days 05/12/2024 With: Address: When: Dental: [facility] [phone] In 3 days 05/12/2024 With: Address: When: Dental: [facility] [phone] In 3 days 05/12/2024 Comments: Call to schedule a follow-up appointment with the dentists provided or the family [facility] service dentist on the pamphlet in the next 2 to 3 days. Take the antibiotic as prescribed. Use the viscous lidocaine as needed for pain management along with Tylenol and ibuprofen. Return to ED with any new or worsening symptoms. With: Address: When: [place] [address] Business (1) In 3 days DIAGNOSIS: Broken or cracked tooth, nontraumatic; Pain, dental [facility] ED Note-Physicianon 05-09-20 ED Note-Physician ED Note-Physician [...] mL, Topical, QIDACHS, 100 mL, Refill(s) 0, [facility], 162, cm, 05/09/24 14:21:00 EDT, Height/Length Dosing, 121.6, kg, 05/09/24 14:21:00 EDT, Weight Dosing lidocaine topical, 200 mg, 10 mL, Soln-Oral, Oral, Once, Stop date 05/09/24 15:11:00 EDT, STAT, Start date 05/09/24 15:11:00 EDT penicillin V potassium, 500 mg = 1 tab(s), Oral, q6hr, X 7 day(s), # 28 tab(s), Refills(s) 0, Pharmacy: [facility], 162, cm, 05/09/24 14:21:00 EDT, Height/Length [...] q6hr Follow-up With When Contact Information Dental: [facility] [phone] In 3 days 05/12/2024 EDT Additional Instructions: Dental: [facility] [phone] In 3 days 05/12/2024 EDT Additional Instructions: Dental: [employer] [facility] [phone] In 3 days 05/12/2024 EDT Additional Instructions: Call to schedule a follow-up appointment with the dentists provided or the [facility] service dentist on the pamphlet in the next 2 to 3 days. Take the antibiotic as prescribed. Use the viscous lidocaine as needed for (more content not included)... [facility] Comment on above: Result Comment: Elec tronically Signed By: Lois Engel PA-C\.br\Date and Time Signed: 05/09/24 16:15 EDT\.br\Electronically Co-Signed By: Bi Galeana DO\.br\Date and Time Co-Signed: 05/09/24 17:12 EDT ED Patient Summaryon ED Patient Summary ED Patient Summary [place] [address] Patient Discharge Instructions Person Information Name: SCARLET DURAND Age: 24 Years Arrival Date: 05/09/2024 14:12:02 Discharge Diagnosis: Broken or cracked tooth, nontraumatic; Pain, dental Primary Care Physician: DOREEN HA CNP Provider Information Primary Provider: Bi Galeana DO Advanced Ship Loader:Lois Engel PA-C The exam and treatment you received in the Emergency Department were for an urgent problem and are not intended as complete care. It is important that you follow up with a doctor, nurse practitioner, or physician?s therapist's assistant for ongoing care. If your symptoms become worse or you do not improve as expected and you are unable to reach your usual health care provider, you should return to the Emergency Department. We are available 24 hours a day. SCARLET DURAND has been given the following list of patient education materials, prescriptions and follow-up instructions: Follow-up Instructions: With: Address: When: Dental: [facility] [phone] In 3 days 05/12/2024 With: Address: When: Dental: [facility] [phone] In 3 days 05/12/2024 With: Address: When: Dental: [facility] [phone] In 3 days 05/12/2024 Comments: Call to schedule a follow-up appointment with the dentists provided or the [facility] service dentist on the pamphlet in the next 2 to 3 days. Take the antibiotic as prescribed. Use the viscous lidocaine as needed for pain management along with Tylenol and ibuprofen. Return to ED with any new or worsening symptoms. With: Address: When: DOREEN HA [facility] [place] [address] Business (1) In 3 days In the event that this physician does not participate in your insurance network, please consult with your insurance company to find a nearby participating provider. Patient Education Materials: Dental Pain, Ynxx-ci-Mnpm A MESSAGE TO ALL PATIENTS REGARDING OPIOIDS PRESCRIPTION OPIOIDS: WHAT YOU NEED TO KNOW Prescription opioids can be used to help relieve kdcpvmpy-fo-ovxbfq pain and are often prescribed following a [...] Store p (more content not included)... [facility] Coding Summary.on 01-16-2024 Coding Summary. KZKJVtcb89PHv9lLe+PG hlY WQ+ZR2GFKNsG20kxYVroO3u O3XGTTjJKrocBRGJBCzHEvA fkxZsQP6wsWMxRAQm IC8+IM5oEQYvPmwybRBij2G 2yTZ7Y83qwe9sXBgvjIK7SR WvRbIhbucha0xmkRx4DUeaH mluOyBt MFJlnC51FIF8kW71Og19iQT asMCza9ofhOt1YgWzUERoUX Q6yVuaXVtoz4CuZGErQ58yd PSic4G4 CWKwfClomHZyWkLtdXJ9fB9 oKGnzcbbjr2yegvdzEtf6sn 23vIOzc0F9qDY8X3UujsF0H GJvbGQg NsayiORYiN1wunnal7uihpb mAvMeFWZzSBk7BMc5ZCPhhM ckBxHtUK11UPM2LBAylrIaT 2FsLWFs dSanRjD6d4R1Dx3NN2HMEju fR6FSPPXBAYfloGA+PC90cj 92L5GyFdjbPyc6SNOuREN0t NK3fO2y PVNmOUsla4Q1rHS8J8TromS ill9wb3tgADEaBIkwI42hjQ Ijl3J3VTBtoZO2OMOffJynV iBzaG93 Oyc+KQYlxVpgv0KsDbeur2x ee5clsFq5MmveOCWzmiLvpX dyJTI1g0AfFv5sHGGjlUI4f XA9uC7k PqCnVrB0YJzwX322FjDfkPU xRldzE15eT0LcvPU+PHRyPj k2LJEpeFwkDT2zM0SsOHQsy mctbGVm vHuvEP8jTGJrdaguGZNyeM3 yGAVwV0e2LtOfHdP7VLczI2 StEAPkstkhIp45cP9cEjWkY xT6GKff R9ExijV8TDUcoHWoFDqgKIY 3A46qi0T2SXTrOIAxOON4sE C7pQ4aoBjgnixylTGdjWsus mVydGlj RAwcVTzbV106SKFdbSghEzJ vZGluZyBEYXRlOiAgMDYvMj EvMjAyNDwvdGQ+TIJwPDQ6o WxlPSAn aFMtJJhdSs6ymMybtAfnQH9 yWSTwvabdZUZyrG1aIWVbnY QetQtuBW0iAREnmkzpc595T iAxMHB0 UXCisGSpQ5BjrT6gSmXjKXZ pTQMeB8UkuAZcKZiuI721BV uyCxT3MKOgkfAkO1PsDIIxv WduOiB0 a4D0Pf3Dq2YksfwyC5WnwDO pToLsZqdpYAp6Q7UlJyfivC I+YR68MPIyDA43UCq6OLL8y WxlPSdi DUPjY5OerB3oKrXpVVDnQIL kOyc+PHRhYmxlIHdpZHRoPS zwXKRlLzEieScwUU5fWw4eG GVyLWNv eNzfuBGgXlDkb4udFUJqIHf aMI5zqMsvI6OynOL2FHRlh7 r8Ht50K63fD8BscNK+PGNvb ZQ3rYM4 aX4kWfBxNuN3HGxtX132PcG wqBAlNbxxc7frm5ncrPs4Nz V5QDEekqEkwYnnSED7w1KoX q85Q48f IHdpZHRoPSIxNSUiIHZhbGl lqb0leU2eFu2+QEMbtJZ5cP I0hJ5uXqLhSjN3XMqxW589B nRvcCIv Ytoyb0mkr9ocoUa2NdTnDKE uoiLyfHfwDTF5q8ZpGn03C2 QdiWzkn0LcRjt4af17xMOio 3L3pOH5 Z8GmWMHieyshzJTeyKlpQN0 zOIAbpgprMPTahJ4kJCBwN1 u4ImVhZyT6XRdqU7EsfvU8H GJvbGQg GMVfqIUEfV6eihsgh0pipdl rHdRzFZZaJXb6QWp6FBFckY gzZtXbSCM5YdW4BQB6uZCup K0bwBfg lnpodH3sQdf+APL5iQKgmAQ ABN2gCeetcVO+OGAmJCI0sA ceAWymDRQzbU6mGXCqZ5u6P iAwLjA1 JDsrU2NzojG5LLKdxJLeERB qcSAWjT0fjumsd9uuffovZt FlOMWrWTw2EXu2KMSxoKhbB iBsZWZ0 WwD0ARS2yHOicA3gaYigtll pxK5nQwg+WvltiPjrPZT2DD p5E5IjOth0TFDajEmzRK2kd GFkZGlu Mg4ssKaxiUwdQO5rIJDxtwo ik707HmBam3vwNHJvjPJzSE bsFOL5H87np6X6BSLzTDNmX JA9kVL6 dL7dzCwaewqjbRKfsIwbcfT upGghTBjmNYakF434NPEdlU dfBdPbEGb1D9MiKuy3FWXfe YdvUQ2p sCMzQPyrRf4faPibdQpyLT3 sOENwuluoz715BjAih1aiFO BbfEZyLVamUBT6D96vp9Z8A CMwMDAw FCU1aLY8jG8lbAqnvpvjiFP mdDsgdmVydGljYWwtYWxpZ2 11NZFwlPuhCrDtvGx4V7HoN cy2HPDu sEfxRN7gnJLjUYkgSf0oxDt fuZspAR6tTQTjaomnv969Oi Qqr9aqRVQnxAYiXMvfMXR9G 54qe7W5 JVSlHEDvEZQ4cZF8aD0ojTj nbjogbGVmdDsgdmVydGljYW rpBSawF726QWWsuUhgJbUwf GllbnQg UVwtKYc9A6TlPskqhOT+PC9 9PDAaQH16nTMbqRSad1mcoX d1HiNlDZPrSKX1cPlaUFjpo 3JkZXIt P58anETpo4V6VWJzcRhbhVL bMkDoiYO1gB9jHXqrmfdsz1 tnyjdpZstpy1okvm82bJ47Y 29sIHdp ZHRoPSIzMCUiIHZhbGlnbj0 wkG1eMg1+LCNevPP3pYM0oM 9iSUZsUfZ9CCbxG871KgJzm CIvPjxj r1zvl3tijYf8CmS3COHvzaA vmZxvSLL8t2FvRy04N40lRP dpZHRoPSIyMCUiIHZhbGlnb r3exL9h Ii8+XKJzrLC0kVK0oN9cUxE dHzU3KTrvF234CxMqkRLxOl suG72eM0RwkOC+PRGvBfk0V CBzdHls TK1mpGNjONafBe5jHVQ3YlW gPzIkVNgpB8InTXIsmlpndh xwySC7AQXvMYYnoH96Ix7yr DogMTBw kWUNkY2yujfgt3uyhomqCeS cBOGtFJm0SZt2DAVmsXdkUj HkDUX5WbH2PHQ4cATogP0ev Glnbjog xD5vJ7WgQMRypqppDk07dZ4 dKkEaMaB5TYstNre+UFVDS0 XXMEugVUVYNImZYALAXB70B J17iBQw h2B8jFV5S0FlQJYqooemgox viBW8UAMwMWSpqJ15bBNfPD rbWk3gr2Y5g410SKViWPKsq G97St6t kNenAHLyyAUKwP1tfvelc9g gscojPxRcZHCvCNv8KDe2CJ HspHrgZlFxQHP0FzA6XVE2x MWlaZ1c uIewklvkzG6rOng+MDYvMTI dECu6ZEuvoXO+DLVlFPW7eD xoLOaxEDCcoB6eDAGoW6q3D iAwLjA1 PLyrA1YkZUMpuecwOu84tZ7 wYcZnTxP0WZmqK3DmghC9EX ApzYHoZWfhZHG0Y27oy1B4O CMwMDAw GYJ9eXZ4pQ6jeXifdnmekHF mdDsgdmVydGljYWwtYWxpZ2 86VELlaFosRdT9KZakMKLmL O42OT93 tGXht9P1oXJ0F3SnVPJgfrx zxngvjWU2QIOwXZWcdB23sN DuGIlrXo6hq5X7o694GLLoY DUwaW47 Vx1tdMbiAEApuUPNvS5kfok vr7ijwounSuAtKAYfLQp9DP a8QQWwwLavVgNuNDB0WgQ3H VH2bUYa lX6feCwdzriuiL8dZbe+RmV lSAhxLB70SM20hFQza6T6vN S8I5QgRPTmssqmuiefnCS8W DAuMDUw bH49qCIgJFcqXa7ja1L4f42 2AQAbSFXftX87Mo2ytItyZC NpeBZYyP2vciqat1ckwnhqQ zAwMDAw ACu1IXk4BUTtfEueUlMqAQK 5HaU8SYT2lWKapD0uhDhpdm ogwD4jHme+DZ7dzoyfsmG9O R43AS07 P4FmDrhfuHGxtXV+PHRhYmx lIHdpZHRoPScxMDAlJyBzdH pkKL7iIt5wCXNnZGJpkJwmq HNlOiBj q6juDUEtVRwcTB0ejNqoD7O cwAH7LDMmr6j0Gv68V11yL2 JvdXA+MDYnrOE1oEI9oB8jW zAlIiB2 ZSzqH783PbYipCCyBuppe9z fn0fjuBn3DuAzITWbgjYixK svBTN4y6KbIq86N16pSPgyU HRoPSIy NMFgCKKyqEwmev4zsN8sNo9 +DIExuUK8xBL5zU0pAaWzBw P7MZriA705HsYzwFPjEnyiY 78zN2Hf dXA+FMEqFvv9HZQopCpjND7 cjMKuACuhVe7kGMO3ItJsJu LyZDtoN5AtMBPwdmeojscwc JK1VHCt ODEdcK15Bh2ujIbsZy1hXDU zCMX8MNDboQVbX8HfzE4lFo ZjCYItOHWbG6DvoOOtUVydK 246IGxl DgE8NFWshxCtU8RhOALjlXm oUsQ0v3Q5Ik9IlVunvXZrSQ 5iPsQeVNn3J6RxCpn6AWSyu DmuUJ3u pGRbMIouZo5ltGffrAexEQ0 mNYNrtsnsd802YpGlg6lkGB RtwNPeZSxsMWG7B08oy2A6Y CMwMDAw HCP1tFY1sG1glFeqneikdWP mdDsgdmVydGljYWwtYWxpZ2 82VTWgfGcfBcSWGen5M0ZdZ qz4YIVt rLqnKK6drCWdTGjwVy0dbHy owFsaUC5eKMTigpnoe406Gz Xom1njYLIxhKYgMDzyFNG0J 42lc5D5 UYZnIKAfEGL3gOT0zC9pyNc nbjogbGVmdDsgdmVydGljYW bmTSnaK191HWElbLppTf0LO qb5W2Aa Jcb2HWRwgBjyLM2peXOjGXu bQf6ilJdvxQefZV4mZASfut qld917FiPrg1vkHKQhnPFdN GltZXM7 J92iq5O6XAZaJEIbAPM7mSG 9oO2zeJqqrofhxEUswRytpd MtlNcsLXkxTIfuM479PTQci DsnPlBh eWVyOjwvdGQ+OL38mi76L8I mEuzeOnt7GGLrUSJ1rMT2jV 2kZQIxHSxce0L6oCH5V6Ehd fHbsa1b f3ktTNNzGZeyP (more content not included)... [facility] Discharge Instructionson Discharge Instructions [id number]#1.00T IFF [facility] ED Clinical Summaryon 2023 ED Clinical Summary (Inserted Image. Paola ble to display) [place] [id number] ED Clinical Summary Person Information Name: SCARLET DURAND [facility] Age: 24 Years : 2000 Sex: Female Language: Venezuelan PCP: DOREEN HA CNP Marital Status: Phone: [phone] Visit Id: Visit Reason: Medical problem - [...] 01/13/2024 00:47:46 01/13/2024 00:47:46 01/13/2024 00:47:46 ADDRESS: [address] [place] [address] [address] [facility] [id number] PHYS DOC NOTES: MEDICAL INFORMATION: Prescriptions Given: [...] 0. PATIENT EDUCATION INFORMATION: Instructions: Sore Throat, Pvct-zb-Wlsh Follow up: With: Address: When: DOREEN HA Y[address] [facility] [address] [place], [place] [id number] [facility] (1) In 3 days 01/16/2024 Comments: You can use ibuprofen, Tylenol every 6 hours as needed for pain. Please follow-up with your primary care doctor next 2 to 3 days for further evaluation management. Please return to the ED for any new or worsening symptoms. DIAGNOSIS: Sore throat [facility] ED Note-Physicianon 01-13-20 24 ED Note-Physician Basic Information Time Seen: Aleta [...] and Complexity of Problems Differential Diagnosis: [] [facility] Data External documents reviewed: [] My [...] DOREEN HA In 3 days 01/16/2024 EDT [address] [place] [address]- Business (1) Additional Instructions: You can use ibuprofen, Tylenol every 6 hours as needed for pain. Please follow-up with your primary care doctor next 2 to 3 days for further evaluation management. Please return to the ED for any new or worsening symptoms. Patient Education Sore Throat, Utgq-xe-Aawq Problem List/Past Medical History Ongoing Adult BMI [...] Living situ (more content not included)... [facility] Comment on above: Result Comment: Elec tronically Signed By: Dokken DO, Kaylinn A\.br\Date and Time Signed: 01/13/24 00:45 EDT ED [...] these instructions at home: Medicines ? Take iagw-nys-jtvpwft and prescription medicines only as told by [...] and water are not available, use hand fiberglass fabricator. Contact a doctor if: ? You have [...] can cause a sore throat. ? Take zrtw-sfn-rdtjkdp medicines only as told by your doctor. [...] provider. Document Revised: 10/10/2021 Document Reviewed: 10/10/2021 [employer] Patient Education ? 2022 [employer] [facility] ED Patient Summaryon 024 ED Patient Summary (Inserted Image. Paola ble to display) [address] [address] Patient Discharge Instructions Person Information Name: SCARLET DURAND Age: 24 Years Arrival Date: 01/12/2024 23:46:16 Discharge Diagnosis: Sore throat Primary Care Physician: DOREEN HA CNP Provider Information Primary Provider: Aleta Oliveira DO Advanced Ship Loader:None The exam and treatment you received in the Emergency Department were for an urgent problem and are not intended as complete care. It is important that you follow up with a doctor, nurse practitioner, or physician?s therapist's assistant for ongoing care. If your symptoms become worse or you do not improve as expected and you are unable to reach your usual health care provider, you should return to the Emergency Department. We are available 24 hours a day. SCARLET DURAND has been given the following list of patient education materials, prescriptions and follow-up instructions: Follow-up Instructions: With: Address: When: [address] [place], [place] [id number] Business (1) In 3 days 01/16/2024 Comments: [...] participating provider. Patient Education Materials: Sore Throat, Funz-qt-Bckh A MESSAGE TO ALL PATIENTS REGARDING OPIOIDS PRESCRIPTION OPIOIDS: WHAT YOU NEED TO KNOW Prescription opioids can be used to help relieve wfkljtbl-uv-gbztax pain and are often prescribed following a [...] to learn a (more content not included)... [facility] Grp A Strp PCRon 01-13-2024 Grp A Strp Intrl Ctrl Pass [facility] Comment on above: Order Comment: Order Added on by Discern Rule. Performed By: #### 1 [id number] #### [facility] [address] [place] [address] S. pyogenes DNA RENÉE+probe Ql (Throat) Negative Normal [facility] Comment on above: Order Comment: Order Added on by Discern Rule. Result Comment: Test ing performed using DNA amplification. Performed By: #### 1 [id number] #### [facility] [address] [place] [address] MICRO OTHER TESTSOrdered By: Joann Mendez on 01-13-2024 S. pyogenes Ag IA.rapid Ql (Throat) Negative (01/13/24 12:23 AM) Normal Negative [facility] Prescriptions/Work Noteson 0 01-13-2024 Prescriptions/Work Notes [id number]#1.00T IFF [facility] Rapid Strep w/rfxon 01-13-20 S. pyogenes Ag IA.rapid Ql (Throat) Negative Normal [facility] Comment on above: Performed By: #### 2 [id number] #### [facility] [address] [place] [address] Consent for Treatmenton 12-26 Consent for Treatment [id number]#1.00T IFF [facility] Discharge Instructionson Discharge Instructions [id number]#1.00 TIFF [facility] ED Clinical Summaryon 2023 ED Clinical Summary (Inserted Image. Paola ble to display) [address] [address] ED Clinical Summary Person Information Name: SCARLET DURAND [facility] Age: 24 Years : 2000 Sex: Female Language: Venezuelan PCP: DOREEN HA CNP Marital Status: Phone: [phone] Visit Id: Visit Reason: Hip pain-swelling; Leg [...] 01/07/2024 00:52:50 01/07/2024 00:52:50 01/07/2024 00:52:50 ADDRESS: [address] [place] [address] [address] [facility] [id number] PHYS DOC NOTES: MEDICAL INFORMATION: Prescriptions Given: [...] Adult Follow up: With: Address: When: Khari Gomez [address] [place], [place] [address] 5 CUPS and some sugar ([employer] In 3 days 01/10/2024 Comments: Call the [...] with orthopedic surgery. DIAGNOSIS: Knee sprain [facility] ED Note-Nursingon 01-07-2024 ED Note-Nursing [id number]#1.00 TIFF Emiliano Daily [facility] ED Note-Physicianon 01-07-20 ED Note-Physician Basic Information Time Seen: Bi Galeana DO 2024 23:42 Chief Complaint states twisted right [...] Gomez In 3 days 01/10/2024 EDT [address] [place] [id number] (1) Additional Instructions: Call the office [...] tab(s), Oral, (more content not included)... [facility] Comment on above: Result Comment: Elec tronically Signed By: Bi Gaelana DO\.br\Date and Time Signed: 01/07/24 02:20 EDT [...] provider. Document Revised: 04/19/2022 Document Reviewed: 04/19/2022 [employer] Patient Education ? 2022 [employer]. Knee Sprain, Adult A knee sprain is [...] this condition (more content not included)... [facility] ED Patient Summaryon 024 ED Patient Summary (Inserted Image. Paola ble to display) [place] [address] Patient Discharge Instructions Person Information Name: SCARLET DURAND Age: 24 Years Arrival Date: 2024 23:13:12 Discharge Diagnosis: Knee sprain Primary Care Physician: DOREEN HA CNP Provider Information Primary Provider: Bi Galeana DO Advanced Ship Loader:None The exam and treatment you received in the Emergency Department were for an urgent problem and are not intended as complete care. It is important that you follow up with a doctor, nurse practitioner, or physician?s therapist's assistant for ongoing care. If your symptoms become worse or you do not improve as expected and you are unable to reach your usual health care provider, you should return to the Emergency Department. We are available 24 hours a day. SCARLET DURAND has been given the following list of patient education materials, prescriptions and follow-up instructions: Follow-up Instructions: With: Address: When: [place] [address] 5 CUPS and some sugar (1[employer] In 3 days 01/10/2024 Comments: Call the [...] opioids can be used to help relieve ticajsbj-za-zbgbth pain and are often prescribed following a [...] Never se (more content not included)... [facility] XR Knee Complete 4+ Views Mn ganga 01-07-2024 XR Knee Complete 4+ Views [...] mGy = na DAP = na [facility] Consent for Treatmenton 12-26 Consent for Treatment [id number]#1.00T IFF [facility] Consent for Treatmenton 08-29 Consent for Treatment [id number]#1.00T IFF [facility] Discharge Instructionson Discharge Instructions [id number]#1.00T IFF [facility] ED Clinical Summaryon 2023 ED Clinical Summary (Inserted Image. Paola ble to display) [place] [id number] ED Clinical Summary Person Information Name: SCARLET DURAND [facility] Age: 23 Years : 2000 Sex: Female Language: Venezuelan PCP: DOREEN HA CNP Marital Status: Phone: [phone] Visit Id: Visit Reason: Fever; Vomiting; Nausea; [...] 09/23/2023 11:27:04 09/23/2023 11:27:04 09/23/2023 11:27:04 ADDRESS: [address] [place] [address] [address] [facility] [id number] PHYS DOC NOTES: MEDICAL INFORMATION: Prescriptions Given: New Medications [facility], [address] [place], [place] [id number], [phone] dextromethorphan-promet hazine (dextromethorphan-prome thazine 15 mg-6.25 mg/5 mL Oral Syrup 5 mL) 5 Milliliter By Mouth every 6 hours as needed for cough for 5 Days. Refills: 0. Medications to Continue Taking That Have Changed [facility] [address], [address] [place], [place] [id number], [phone] START: ondansetron (Zofran ODT 4 mg Tab-Dis) [...] Adult Follow up: With: Address: When: DOREEN HA [address] [place] [address] [facility] [place] [address] [facility] (6) In 3 days 09/26/2023 DIAGNOSIS: Flu-like symptoms; Vomiting [facility] ED Note-Physicianon 09-23-19 ED Note-Physician Basic Information [...] for 5 day(s), 200 mL, Refill(s) 0, [facility], 162, cm, 09/23/23 8:58:00 EST, Height/Length Dosing, 121.6, kg, 09/23/23 8:58:00 EST, Weight Dosing ondansetron, 4 mg = 1 tab(s), Tab-Dis, Oral, Once, Stop date 09/23/23 8:55:00 EST, STAT, Start date 09/23/23 8:55:00 EST, 09/23/23 8:55:00 EST ondansetron, 4 mg = 1 tab(s), Oral, TID, # 15 tab(s), Refills(s) 0, Pharmacy: [facility], 162, cm, 09/23/23 8:58:00 EST, Height/Length [...] DOREEN HA In 3 days 09/26/2023 EST [address] [place] [address]- Business (1) Additional Instructions: Patient Education Viral [...] made to ensure accuracy, however, inadvertently computerized truck unloader mistakes may be present. Appropriate healthcare PPE [...] management De (more content not included)... [facility] Comment on above: Result Comment: Elec tronically Signed By: David MONDRAGON, Lukas\.br\Date and Time Signed: 09/23/23 11:18 EST\.br\Electronically Co-Signed [...] Medicines to relieve symptoms. These can include muhu-wtv-nonriyo medicine for pain and fever, medicines for cough or congestion, and medicines to relieve diarrhea. ? Antiviral medicines. These medicines are available only for certain types of viruses. Some viral illnesses can be prevented with vaccinations. A common example is the flu shot. Follow these instructions at home: Medicines ? Take rxee-suz-tchlaks and prescription medicines only as told by [...] water are (more content not included)... [facility] ED Patient Summaryon 024 ED Patient Summary (Inserted Image. Paola ble to display) [address] [address] Patient Discharge Instructions Person Information Name: SCARLET DURAND Age: 23 Years Arrival Date: 09/23/2023 08:35:20 Discharge Diagnosis: Flu-like symptoms; Vomiting Primary Care Physician: DOREEN HA CNP Provider Information Primary Provider: Ashley Faustin M.D. Advanced Ship Loader:Lukas Hernandez PA-C The exam and treatment you received in the Emergency Department were for an urgent problem and are not intended as complete care. It is important that you follow up with a doctor, nurse practitioner, or physician?s therapist's assistant for ongoing care. If your symptoms [...] Follow-up Instructions: With: Address: When: [place] [address] Business (1) In 3 days 09/26/2023 In the event that this physician does not participate in your insurance network, please consult with your insurance company to find a nearby participating provider. Patient Education Materials: Viral Illness, Adult A MESSAGE TO ALL PATIENTS REGARDING OPIOIDS PRESCRIPTION OPIOIDS: WHAT YOU NEED TO KNOW Prescription opioids can be used to help relieve lvgxaxcc-gr-egyjkb pain and are often prescribed following a [...] be struggling with addiction, tell your health child adolescent care and ask for guidance or call [facility] National Helpline at 5-569-998- (more content not included)... [facility] Prescriptions/Work Noteson 0 09-23-2023 Prescriptions/Work Notes [id number]#1.00T IFF [facility] Discharge Instructionson Discharge Instructions [id number]#1.00T IFF [facility] Consent for Treatmenton 07-29 Consent for Treatment [id number]#1.00T IFF [facility] ED Clinical Summaryon 2023 ED Clinical Summary (Inserted Image. Paola ble to display) [address] [address] ED Clinical Summary Person Information Name: SCARLET DURAND [place] Age: 23 Years : 2000 Sex: Female Language: Venezuelan PCP: DOREEN HA CNP Marital Status: Phone: [phone] Visit Id: Visit Reason: Ear pain; RIGHT [...] 08/22/2023 22:45:27 08/22/2023 22:45:27 08/22/2023 22:45:27 ADDRESS: [address] [facility] [id number] PHYS DOC NOTES: MEDICAL INFORMATION: Prescriptions Given: New Medications [facility], [address] [place], [place] [id number], [phone] amoxicillin-clavulanate (Augmentin 875 mg-125 mg Tab) 1 [...] Media, Adult Follow up: With: Address: When: [address] [place] [address] Business (1) In 3 days 08/25/2023 Comments: Follow-up with your primary care provider in 3 to 5 days. If symptoms worsen, do not improve, or new symptoms arise please report back to emergency department for further evaluation. DIAGNOSIS: Left otitis media [facility] ED Note-Physicianon 08-22-19 ED Note-Physician Basic Information [...] and Complexity of Problems Differential Diagnosis: [] [facility] Data External documents reviewed: [] My [...] for 10 day(s), 20 tab(s), Refill(s) 0, [facility], 162, cm, 08/22/23 22:19:00 EST, Height/Length [...] 3 days 08/25/2023 EST [address] [place] [address]- Business (1) Additional Instructions: Follow-up with your primary care provider in 3 to 5 days. If symptoms worsen, do not improve, or new symptoms arise please report back to emergency department for further evaluation. Patient Education Otitis Media, Adult Attestation Patient seen and evaluated by the physician therapist's assistant. Attending physician was present in the emergency department and supervised care. This visit was performed by both the physician and an APC. I performed all aspects of the MDM as documented. This report was transcribed using voice recognition software. 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 Appropriate healthcare PPE [...] Mental disorder (more content not included)... [facility] Comment on above: Result Comment: Elec tronically [...] Follow these instructions at home: ? Take ytbv-eiz-rmqacqx and prescription medicines only as told by [...] provider. Document Revised: 10/22/2021 Document Reviewed: 10/22/2021 Elsevier Patient Education ? 2022 [employer] [facility] ED Patient Summaryon 024 ED Patient Summary (Inserted Image. Paola ble to display) [address] [address] Patient Discharge Instructions Person Information Name: SCARLET DURAND Age: 23 Years Arrival Date: 08/22/2023 22:11:28 Discharge Diagnosis: Left otitis media Primary Care Physician: DOREEN HA CNP Provider Information Primary Provider: Aleta Oliveira DO Advanced Ship Loader:None The exam and treatment you received in the Emergency Department were for an urgent problem and are not intended as complete care. It is important that you follow up with a doctor, nurse practitioner, or physician?s therapist's assistant for ongoing care. If your symptoms become worse or you do not improve as expected and you are unable to reach your usual health care provider, you should return to the Emergency Department. We are available 24 hours a day. SCARLET DURAND has been given the following list of patient education materials, prescriptions and follow-up instructions: Follow-up Instructions: With: Address: When: [place] [address] Business (1) In 3 days 08/25/2023 Comments: Follow-up [...] opioids can be used to help relieve xwucaevg-kx-iblyqf pain and are often prescribed following a [...] abuse and over (more content not included)... [facility] Consent for Treatmenton 06-29 Consent for Treatment [id number]#1.00T IFF [facility] Discharge Instructionson Discharge Instructions [id number]#1.00 TIFF [facility] ED Clinical Summaryon 2022 ED Clinical Summary (Inserted Image. Paola ble to display) [place] [id number] ED Clinical Summary Person Information Name: SCARLET DURAND [place] Age: 23 Years : 2000 Sex: Female Language: Venezuelan PCP: DOREEN HA CNP Marital Status: Phone: [phone] Visit Id: Visit Reason: Breast Lump ? [...] 07/27/2023 21:45:12 07/27/2023 21:45:12 07/27/2023 21:45:12 ADDRESS: [address] [place] [address] [address] [facility] [id number] PHYS DOC NOTES: MEDICAL INFORMATION: Prescriptions Given: New Medications [facility], [address] [place] [id number], [phone] sulfamethoxazole-trimet hoprim (Bactrim D.S. 800 mg-160 mg Tab) 1 Tablets By Mouth 2 times a day. Refills: 0. Medications to Continue Taking That Have Changed [facility], [address] [place] [id number], [phone] START: ondansetron (Zofran ODT 4 mg Tab-Dis) [...] 0. PATIENT EDUCATION INFORMATION: Instructions: Cellulitis, Adult, Fnes-xp-Zsdr Follow up: With: Address: When: [address] [place] [address] [facility] (1) In 3 days 07/30/2023 Comments: Take [...] for any worsening symptoms. DIAGNOSIS: Cellulitis [facility] ED Note-Physicianon 07-27-20 ED Note-Physician Basic Information Time Seen: Aleta Oliveira DO 07/27/2023 21:05 Chief Complaint Pt states has [...] and Complexity of Problems Differential Diagnosis: [] [facility] Data External documents reviewed: [] My [...] q8hr, # 12 tab(s), Refills(s) 0, Pharmacy: [facility], 163, cm, 07/27/23 21:11:00 EST, Height/Length [...] tab(s), Oral, BID, 20 tab(s), Refill(s) 0, [facility], 163, cm, 07/27/23 21:11:00 EST, Height/Length [...] In 3 days 07/30/2023 EST [address] [place] [address]- Business (1) Additional Instructions: Take the antibiotics [...] any worsening symptoms. Patient Education Cellulitis, Adult, Upjn-pz-Dina Problem List/Past Medical History Ongoing Adult BMI [...] Medications Inpatie (more content not included)... [facility] Comment on above: Result Comment: Elec tronically Signed By: Aleta Oliveira DO\.br\Date and Time Signed: 07/27/23 23:31 EST ED [...] these instructions at home: Medicines ? Take lvyt-izt-jdpjukg and prescription medicines only as told by [...] provider. Document Revised: 04/25/2022 Document Reviewed: 04/25/2022 [employer] Patient Education ? 2022 [employer]. [facility] ED Patient Summaryon 023 ED Patient Summary (Inserted Image. Paola ble to display) [place] [id number] Patient Discharge Instructions Person Information Name: SCARLET DURAND Age: 23 Years Arrival Date: 07/27/2023 20:59:24 Discharge Diagnosis: Cellulitis Primary Care Physician: DOREEN HA CNP Provider Information Primary Provider: Aleta Oliveira DO Advanced Ship Loader:None The exam and treatment you received in the Emergency Department were for an urgent problem and are not intended as complete care. It is important that you follow up with a doctor, nurse practitioner, or physician?s therapist's assistant for ongoing care. If your symptoms become worse or you do not improve as expected and you are unable to reach your usual health care provider, you should return to the Emergency Department. We are available 24 hours a day. SCARLET DURAND has been given the following list of patient education materials, prescriptions and follow-up instructions: Follow-up Instructions: With: Address: When: [place] [address] Business (1) In 3 days 07/30/2023 Comments: [...] participating provider. Patient Education Materials: Cellulitis, Adult, Wthw-oa-Tqjv A MESSAGE TO ALL PATIENTS REGARDING OPIOIDS PRESCRIPTION OPIOIDS: WHAT YOU NEED TO KNOW Prescription opioids can be used to help relieve xifmpnvk-ch-gmoevg pain and are often prescribed following a [...] them down (more content not included)... [facility] ED Note-Physicianon 07-26-20 ED Note-Physician Basic Information [...] pallor noted. Nurse Evan BRADEN was my toys and games hand finisher throughout the encounter. Along the patient's medial [...] and Complexity of Problems Differential Diagnosis: [] [facility] Data External documents reviewed: [] My [...] did perform with nurse Gordon as my toys and games hand finisher, appears to be a cellulitis on the [...] day(s), # 28 cap(s), Refills(s) 0, Pharmacy: [facility], 163, cm, 07/25/23 20:26:00 EST, Height/Length [...] 3 days 07/28/2023 EST [address] [place] [address] [facility] (1) Additional Instructions: Follow-up with your primary care provider in 3 to 5 days. If symptoms worsen, do not improve, or new symptoms arise please report back to emergency department for further evaluation. Patient Education Cellulitis, Adult, Aody-il-Olus Attestation Patient seen and evaluated by the physician therapist's assistant. Attending physician was present in the emergency department and supervised care. This visit was performed by both the physician and an APC. I performed all aspects of the MDM as documented. This report was transcribed using voice recognition software. 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 Appropriate healthcare PPE was used in evaluating this patient. The patient was placed in a mask. The healthcare provider was wearing mask, gloves, and utilizing proper hand hygiene. All equipment was properly cleansed. Problem List/Past Medical History Ongoing Adult BMI 40.0-44.9 kg/sq m Anxiety (more content not included)... [facility] Comment on above: Result Comment: Elec tronically Signed By: Miguelito Rubi PA-C\.br\Date and Time Signed: 07/25/23 23:28 EST\.br\Electronically Co-Signed By: Kosta Carter MD\.br\Date and Time Co-Signed: 07/26/23 05:22 EST Consent for Treatmenton 06-28 Consent for Treatment [id number]#1.00T IFF [facility] Discharge Instructionson Discharge Instructions [id number]#1.00 TIFF [facility] ED Clinical Summaryon 2022 ED Clinical Summary (Inserted Image. Paola ble to display) [address] [address] ED Clinical Summary Person Information Name: SCARLET DURAND/[facility] Age: 23 Years : 2000 Sex: Female Language: Venezuelan PCP: DOREEN HA CNP Marital Status: Phone: [phone] Visit Id: Visit Reason: Breast Lump ? [...] 07/25/2023 20:38:33 07/25/2023 20:38:33 07/25/2023 20:38:33 ADDRESS: [facility] [address] [facility] [id number] PHYS DOC NOTES: MEDICAL INFORMATION: Prescriptions Given: New Medications [facility], [address] [place], [place] [id number], [phone] cephalexin (Keflex 500 mg Cap) 1 Capsules [...] 0. PATIENT EDUCATION INFORMATION: Instructions: Cellulitis, Adult, Kqcs-qi-Whye Follow up: With: Address: When: [place] [address] 5 CUPS and some sugar (1) In 3 days 07/28/2023 Comments: Follow-up with your primary care provider in 3 to 5 days. If symptoms worsen, do not improve, or new symptoms arise please report back to emergency department for further evaluation. DIAGNOSIS: Cellulitis of right breast [facility] ED Patient Education Noteon 07-25-2023 ED Patient [...] these instructions at home: Medicines ? Take kylt-pcd-gnigqoq and prescription medicines only as told by [...] provider. Document Revised: 04/25/2022 Document Reviewed: 04/25/2022 [employer] Patient Education ? 2022 [employer] [facility] ED Patient Summaryon 023 ED Patient Summary (Inserted Image. Paola ble to display) [address] [address] Patient Discharge Instructions Person Information Name: SCARLET DURAND Age: 23 Years Arrival Date: 07/25/2023 20:21:00 Discharge Diagnosis: Cellulitis of right breast Primary Care Physician: DOREEN HA CNP Provider Information Primary Provider: Advanced Ship Loader:None The exam and treatment you received in the Emergency Department were for an urgent problem and are not intended as complete care. It is important that you follow up with a doctor, nurse practitioner, or physician?s therapist's assistant for ongoing care. If your symptoms [...] Follow-up Instructions: With: Address: When: DOREEN HA [address] [place] [address] [place] [address] Business (1) In 3 days 07/28/2023 Comments: [...] participating provider. Patient Education Materials: Cellulitis, Adult, Royv-yl-Hqjz A MESSAGE TO ALL PATIENTS REGARDING OPIOIDS PRESCRIPTION OPIOIDS: WHAT YOU NEED TO KNOW Prescription opioids can be used to help relieve rorexdwu-ax-eetwuo pain and are often prescribed following a [...] and overdo (more content not included)... [facility] ED Note-Physicianon 07-16-20 ED Note-Physician Basic Information Time Seen: Rosana MONDRAGONoNri 07/13/2023 15:38 Chief Complaint Pt presents to [...] Nausea/Vomiting, # 12 tab(s), Refills(s) 0, Pharmacy: [facility], 163, cm, 07/13/23 15:31:00 EST, Height/Length [...] Contact Information DOREEN HA In 3 days [address] [place] [address] [facility] (1) Additional Instructions: Patient Education Vomiting, Adult Attestation Patient was treated and evaluated by the Physician Center Rep. The attending physician was in the Emergency [...] Oral, q8h (more content not included)... [facility] Comment on above: Result Comment: Elec tronically Signed By: Nori Wayne PA-C\.br\Date and Time Signed: 07/13/23 22:38 EST\.br\Electronically Co-Signed By: Ashley Faustin M.D.\.br\Date and Time Co-Signed: 07/16/23 19:25 EST Grp A Strp PCRon 07-14-2023 Grp A Strp Intrl Ctrl Pass [facility] Comment on above: Order Comment: Order Added on by Discern Rule. Performed By: #### 2 [id number], [id number] ####[facility] [address] [place] [address] S. pyogenes DNA RENÉE+probe Ql (Throat) Negative [facility] Comment on above: Order Comment: Order Added on by Discern Rule. Result Comment: Test ing performed using DNA amplification. Performed By: #### 2 [id number], [id number] ####[facility] [address] [place] [address] Consent for Treatmenton 06-27 Consent for Treatment [id number]#1.00T IFF [facility] Discharge Instructionson Discharge Instructions [id number]#1.00 TIFF [facility] ED Clinical Summaryon 2022 ED Clinical Summary (Inserted Image. Paola ble to display) [place] [id number] ED Clinical Summary Person Information Name: SCARLET DURAND [place] Age: 23 Years : 2000 Sex: Female Language: Venezuelan PCP: DOREEN HA CNP Marital Status: Phone: [phone] Visit Id: Visit Reason: Diarrhea; Nausea and [...] 07/13/2023 18:03:07 07/13/2023 18:03:07 07/13/2023 18:03:07 ADDRESS: [address] [place] [address] [address] [facility] [id number] PHYS DOC NOTES: MEDICAL INFORMATION: Prescriptions Given: New Medications [facility], [address] [place], [place] [id number], [phone] ondansetron (Zofran ODT 4 mg Tab-Dis) 1 [...] Follow up: With: Address: When: [address] [place] [address] Business (1) In 3 days DIAGNOSIS: 1:Nausea, vomiting and diarrhea; Diarrhea, unspecified [facility] ED Patient Education Noteon 07-13-2023 ED Patient [...] pharmacies and retail stores. ? Eat bland, jmbc-df-umtwtk foods in small amounts as you are [...] and water are not available, use hand fiberglass fabricator. ? Make sure that everyone in your household washes their hands frequently. ? Take tpzj-xmj-xmdruro and prescription medicines only as told by [...] and water are not available, use hand fiberglass fabricator. ? Watch your condition for any changes and for signs of dehydration. ? Keep all follow-up visits. This is important. This information is not intended to replace advice given to you by your health care provider. Make sure you discuss any questions you have with your health care provider. Document Revised: 01/18/2022 Document Reviewed: 01/18/2022 [employer] Patient Education ? 2022 [employer] [facility] ED Patient Summaryon 023 ED Patient Summary (Inserted Image. Paola ble to display) [address] [address] Patient Discharge Instructions Person Information Name: SCARLET DURAND Age: 23 Years Arrival Date: 07/13/2023 15:21:36 Discharge Diagnosis: 1:Nausea, vomiting and diarrhea; Diarrhea, unspecified Primary Care Physician: DOREEN HA CNP Provider Information Primary Provider: Ashley Faustin M.D. Advanced Ship Loader:Nori Wayne PA-C The exam and treatment you received in the Emergency Department were for an urgent problem and are not intended as complete care. It is important that you follow up with a doctor, nurse practitioner, or physician?s therapist's assistant for ongoing care. If your symptoms [...] Follow-up Instructions: With: Address: When: DOREEN HA [address] [place] [address] [place] [phone] Business (1) In 3 days In the event that this physician does not participate in your insurance network, please consult with your insurance company to find a nearby participating provider. Patient Education Materials: Vomiting, Adult A MESSAGE TO ALL PATIENTS REGARDING OPIOIDS PRESCRIPTION OPIOIDS: WHAT YOU NEED TO KNOW Prescription opioids can be used to help relieve rvbfhdhz-di-fkixxh pain and are often prescribed following a [...] be struggling with addiction, tell your health child adolescent care and ask for guidance or call [employer]?S National Helpline (more content not included)... [facility] MICRO OTHER TESTSOrdered By: Marie Torres on 07-13-2023 S. pyogenes Ag IA.rapid Ql (Throat) Negative (07/13/23 4:29 PM) Normal Negative [facility] Man Sero Rapid Strep w/rfxon 07-13-20 S. pyogenes Ag IA.rapid Ql (Throat) Negative [facility] Comment on above: Performed By: #### 2 [id number], [id number] ####[facility] [address] [place] [address] Consent for Treatmenton 05-28 Consent for Treatment [id number]#1.00T IFF [facility] Discharge Instructionson Discharge Instructions [id number]#1.00T IFF [facility] ED Clinical Summaryon 2022 ED Clinical Summary (Inserted Image. Paola ble to display) [address] [address] ED Clinical Summary Person Information Name: SCARLET DURAND/[facility] Age: 23 Years : 2000 Sex: Female Language: Venezuelan PCP: DOREEN HA CNP Marital Status: Phone: [phone] Visit Id: Visit Reason: Foot pain-swelling; LEFT [...] [address] [facility] [id number] PHYS DOC NOTES: MEDICAL INFORMATION: Prescriptions Given: Medications to Continue Taking That Have Changed [facility], [address] [place] [id number], [phone] START: naproxen (Naprosyn 500 mg Tab) 1 [...] Follow up: With: Address: When: Occupational Health: [facility] [phone] In 3 days 06/16/2023 DIAGNOSIS: Foot contusion [facility] ED Note-Physicianon 06-13-20 ED Note-Physician Basic Information Time Seen: Lukas Hernandez PA-C 06/13/2023 17:18 Chief Complaint Pt works at [employer] and dropped a pallet on her L [...] a workers comp claim and is given Near Page followup. Patient was encouraged to return to the ED if symptoms worsen or change. Splinting procedure Patient was placed in Luiz wrap and post op shoe by nursing staff. Remains neurovascular intact. Assessment/Plan Foot contusion (S90.30XA: Contusion of unspecified foot, initial encounter) Orders: naproxen, 500 mg = 1 tab(s), Oral, BID, # 20 tab(s), Refills(s) 0, Pharmacy: [facility], 163, cm, 06/13/23 17:20:00 EST, Height/Length [...] Follow-up With When Contact Information Occupational Health: [facility] [phone] In 3 days 06/16/2023 EST Additional Instructions: Patient Education Foot Contusion Attestation Patient seen and evaluated by the physician therapist's assistant. Attending physician was present in the emergency department and supervised care. This visit was performed by both the physician and an APC. I performed all aspects of the MDM as documented. This report was transcribed using voice recognition software. 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 Appropriate healthcare PPE [...] grandparent. Ron (more content not included)... [facility] Comment on above: Result Comment: Elec tronically [...] may be recommended to support your foot. Ciuo-eds-odysocs anti-inflammatory medicines may also be recommended for [...] or lying down. General instructions ? Take rgbv-qrf-ohvpivt and prescription medicines only as told by [...] provider. Document Revised: 10/17/2021 Document Reviewed: 10/17/2021 [employer] Patient Education ? 2022 [employer] [facility] ED Patient Summaryon 023 ED Patient Summary (Inserted Image. Paola ble to display) [place] [id number] Patient Discharge Instructions Person Information Name: SCARLET DURAND Age: 23 Years Arrival Date: 06/13/2023 17:02:41 Discharge Diagnosis: Foot contusion Primary Care Physician: DOREEN HA CNP Provider Information Primary Provider: Bi Galeana DO Advanced Ship Loader:Lukas Hernandez PA-C The exam and treatment you received in the Emergency Department were for an urgent problem and are not intended as complete care. It is important that you follow up with a doctor, nurse practitioner, or physician?s therapist's assistant for ongoing care. If your symptoms [...] Follow-up Instructions: With: Address: When: Occupational Health: [facility] [phone] In 3 days 06/16/2023 In the event that this physician does not participate in your insurance network, please consult with your insurance company to find a nearby participating provider. Patient Education Materials: Foot Contusion A MESSAGE TO ALL PATIENTS REGARDING OPIOIDS PRESCRIPTION OPIOIDS: WHAT YOU NEED TO KNOW Prescription opioids can be used to help relieve suutwpck-ly-cthnhg pain and are often prescribed following a [...] be struggling with addiction, tell your health child adolescent care and ask for guidance or call [facility]?S National Helpline at 8-638-574-JBRO. v Source: Department of Health and Human Services/[place] (more content not included)... [facility] Workers Comp Formson 023 Workers Comp Forms [id number]#1.00T IFF [facility] XR Foot 3+ Views Lefton 05-28 XR [...] mGy = na DAP = na [facility] Consenton 05-15-2023 Consent [id number]#1.00 TIFF [facility] Registrationon 05-15-2023 Registration [id number]#1.00 TIFF [facility] [facility] Consent for Treatmenton 03-29 Consent for Treatment [id number] D:127 [facility] Discharge Instructionson Discharge Instructions [id number] CD:127 [facility] ED Clinical Summaryon 2022 ED Clinical Summary (Inserted Image. Paola ble to display) [place] [id number] ED Clinical Summary Person Information Name: SCARLET DURAND/[facility] Age: 23 Years : 2000 Sex: Female Language: Venezuelan PCP: NONE, XXXX Marital Status: Phone: [phone] Visit Id: Visit Reason: Throat pain - [...] 04/24/2023 10:56:30 04/24/2023 10:56:30 04/24/2023 10:56:30 ADDRESS: [address] [place] [address] [address] [facility] [id number] PHYS DOC NOTES: MEDICAL INFORMATION: Prescriptions Given: New Medications [facility], [address] [place], [place] [id number], [phone] azithromycin (azithromycin 250 mg Tab 5-day Dose [...] Pharyngitis Follow up: With: Address: When: Daniella Floyd [address] [place], [place] [id number] [phone] Business (1) In 3 days 04/27/2023 DIAGNOSIS: Pharyngitis [facility] ED Note-Physicianon 04-24-20 ED Note-Physician Basic Information [...] day(s), # 6 tab(s), Refills(s) 0, Pharmacy: [facility], 163, cm, 04/24/23 9:56:00 EDT, Height/Length [...] Daniella Floyd In 3 days 04/27/[address] [place] [phone] Business (1) Additional Instructions: Patient Education Pharyngitis Attestation Patient seen and evaluated by the physician therapist's assistant. Attending physician was present in the emergency department and supervised care. This visit was performed by both the physician and an APC. I performed all aspects of the MDM as documented. This report was transcribed using voice recognition software. 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 Appropriate healthcare PPE [...] Alcohol Use, (more content not included)... [facility] Comment on above: Result Comment: Elec tronically [...] these instructions at home: Medicines ? Take xrdc-gff-sizpszk and prescription medicines only as told by [...] and water are not available, use hand fiberglass fabricator. ? Do not touch your eyes, nose, [...] is a (more content not included)... [facility] ED Patient Summaryon 023 ED Patient Summary (Inserted Image. Paola ble to display) [place] [id number] Patient Discharge Instructions Person Information Name: SCARLET DURAND Age: 23 Years Arrival Date: 04/24/2023 09:32:05 Discharge Diagnosis: Pharyngitis Primary Care Physician: NONE, XXXX Provider Information Primary Provider: Ashley Faustin M.D. Advanced Ship Loader:Lukas Hernandez PA-C The exam and treatment you received in the Emergency Department were for an urgent problem and are not intended as complete care. It is important that you follow up with a doctor, nurse practitioner, or physician?s therapist's assistant for ongoing care. If your symptoms become worse or you do not improve as expected and you are unable to reach your usual health care provider, you should return to the Emergency Department. We are available 24 hours a day. SCARLET DURAND has been given the following list of patient education materials, prescriptions and follow-up instructions: Follow-up Instructions: With: Address: When: Daniella Floyd [address] [place], [place] [phone] Business (1) In 3 days 04/27/2023 In the event that this physician does not participate in your insurance network, please consult with your insurance company to find a nearby participating provider. Patient Education Materials: Pharyngitis A MESSAGE TO ALL PATIENTS REGARDING OPIOIDS PRESCRIPTION OPIOIDS: WHAT YOU NEED TO KNOW Prescription opioids can be used to help relieve ixxkojgv-wc-eclbco pain and are often prescribed following a [...] from the Food and Drug Administration (www.fda.gov/Drugs/Reso bettyEstefanyGolden). ? Visit www.cdc.gov/drugoverdos e to learn about the risks of opioids abuse and overdose. ? If you believe you may be struggling with addiction, tell your health child adolescent care and ask for guidance or call [facility] National Helpline at 5-668-602-Nanosphere. Loop Source: Department of [facility] and (more content not included)... [facility] Vit D 1,25on 04-01-2023 1,25-dihydroxyvitamin D [Mass/Vol] 35.9 pg/mL Invalid Interpretation Code 24.8-81.5 [facility] Comment on above: Result Comment: Perf ormed at: [facility] [address] [id number] MD Enrike Oglesby Performed By: #### 1 0741251, 6445335, 11891829, 2059803, 0573758, 9975854, 47771335, 8338459 ####[facility] [address] [place] [address] Auto Diffon 03-27-2023 Basophils/100 WBC (Bld) 0.4 % Normal 0.0-2.0 [facility] Comment on above: Order Comment: Order Added by Discern Expert. Performed By: #### 1 9093409, 5414527, 03536901, 0105339, 6958309, 8564873, 74898919, 2604624 ####[facility] [address] [place] [address] Basophils/Leukocytes Auto (Bld) [Pure # fraction] 0.0 E9/L Normal 0.0-0.2 [facility] Comment on above: Order Comment: Order Added by Discern Expert. Performed By: #### 1 5970037, 2888789, 06836317, 0083062, 8407113, 6373435, 77117596, 4477714 ####[facility] [address] [place] [address] Eosinophils/100 WBC (Bld) 0.8 % Normal 0.0-8.0 [facility] Comment on above: Order Comment: Order Added by Discern Expert. Performed By: #### 1 1167390, 0253302, 74892692, 3134661, 7999319, 5745607, 45367002, 7102088 ####[place] [address] [place] [address] Eosinophils/Leukocytes Auto (Bld) [Pure # fraction] 0.1 E9/L Normal 0.0-0.5 [facility] Comment on above: Order Comment: Order Added by Discern Expert. Performed By: #### 1 2544315, 5335239, 57476728, 1061834, 4621125, 6735061, 02654473, 8587889 ####[place] [address] [place] [address] Lymphocytes/100 WBC (Bld) 26.4 % Normal 14.0-50.0 [facility] Comment on above: Order Comment: Order Added by Discern Expert. Performed By: #### 1 4686709, 6663626, 25013106, 5341927, 5778230, 8878704, 37493598, 8394420 ####[address] [address] Lymphocytes/Leukocytes Auto (Bld) [Pure # fraction] 2.3 E9/L Normal 1.0-4.0 [facility] Comment on above: Order Comment: Order Added by Discern Expert. Performed By: #### 1 8856783, 2864584, 82774760, 4798234, 9230705, 2595808, 82470418, 2876343 ####[address] [address] Monocytes/100 WBC (Bld) 4.5 % Normal 4.0-14.0 [facility] Comment on above: Order Comment: Order Added by Discern Expert. Performed By: #### 1 1081671, 6329518, 51299867, 6616355, 3603909, 7447368, 01574831, 5526271 ####[place] [address] [place] [address] Monocytes/Leukocytes Auto (Bld) [Pure # fraction] 0.4 E9/L Normal 0.2-1.0 [facility] Comment on above: Order Comment: Order Added by Discern Expert. Performed By: #### 1 7845824, 4300446, 52367062, 4575257, 4390329, 8298402, 19011551, 3995530 ####[place] [address] [place] [address] Neutrophils/100 WBC (Bld) 67.9 % Normal 36.0-75.0 [facility] Comment on above: Order Comment: Order Added by Discern Expert. Performed By: #### 1 7146728, 4097003, 77211132, 0465136, 2539143, 6513990, 50973648, 4608588 ####[address] [address] Neutrophils/Leukocytes Auto (Bld) [Pure # fraction] 5.9 E9/L Normal 2.0-7.5 [facility] Comment on above: Order Comment: Order Added by Discern Expert. Performed By: #### 1 9326039, 5653453, 80573744, 2840160, 2430840, 8305371, 30497771, 9486278 ####[address] [address] CBC w/ Auto Diffon 3 Erythrocyte distribution width (RBC) [Ratio] 15.4 % High 10.9-14.2 [facility] Comment on above: Performed By: #### 1 3210943, 0177133, 66380307, 5128149, 4081563, 6844054, 84691293, 0053447 ####[place] [address] [place] [address] Hematocrit (Bld) [Volume fraction] 36.9 % Normal 34.0-46.0 [facility] Comment on above: Performed By: #### 1 7401719, 8892564, 49867010, 3911908, 0648881, 2541644, 29851919, 3983468 ####[place] [address] [place] [address] Hemoglobin (Bld) [Mass/Vol] 11.8 g/dL Low 12.0-16.0 [facility] Comment on above: Performed By: #### 1 7474859, 2177628, 84467142, 3379099, 6635134, 9933516, 12235295, 6112567 ####[address] [address] MCH (RBC) [Entitic mass] 24.9 pg Low 27.0-34.0 [facility] Comment on above: Performed By: #### 1 8363148, 3249034, 86555524, 6686927, 8365649, 1656594, 19973433, 1226745 ####[place] 26[address]357 MCHC (RBC) [Mass/Vol] 31.9 g/dL Normal 31.4-36.0 [facility] Comment on above: Performed By: #### 1 1803284, 0237327, 43983662, 2057270, 3564865, 0017114, 12954143, 5469400 ####[address] [address] MCV (RBC) [Entitic vol] 78.2 fL Low 80.0-100.0 [facility] Comment on above: Performed By: #### 1 3878439, 3824391, 12222590, 4604444, 8618449, 9694551, 55426550, 4976975 ####[address] [address] Platelet mean volume (Bld) [Entitic vol] 9.9 fL Normal 6.4-10.8 [facility] Comment on above: Performed By: #### 1 9146730, 8555484, 26375348, 3851678, 2648929, 6644381, 60205602, 9385843 ####[facility] [address] [place] [address] Platelets (Bld) [#/Vol] 365.0 E9/L Normal 150.0-500.0 [facility] Comment on above: Performed By: #### 1 7408865, 2521372, 09882391, 5598447, 4964848, 0375353, 22993902, 2861637 ####[place] [address] [place] [address] RBC (Bld) [#/Vol] 4.7 E12/L Normal 4.3-5.9 [facility] Comment on above: Performed By: #### 1 6784832, 0798188, 10082076, 1141034, 4382136, 9381143, 08289950, 6571565 ####[address] [address] WBC corrected for nucl RBC Auto (Bld) [#/Vol] 8.8 E9/L Normal 4.0-11.0 [facility] Comment on above: Performed By: #### 1 4313413, 8062825, 97482043, 4860375, 4976777, 9175860, 18730993, 6589417 ####[place] [address] [place] [address] CMPon 03-27-2023 Albumin [Mass/Vol] 3.6 g/dL Normal 3.3-5.0 [facility] Comment on above: Performed By: #### 1 4445808, 0189343, 49247810, 8784706, 4331538, 4964431, 76341597, 4418184 ####[place] [address] [place] [address] Albumin/Globulin (S) [Mass conc ratio] 1.0 Low 1.1-2.2 [facility] Comment on above: Performed By: #### 1 0349418, 3494794, 53201196, 9577278, 6222618, 4422312, 51306806, 1415464 ####[facility] [address] [place] [address] ALP [Catalytic activity/Vol] 61 Int._Unit/L Normal 21-98 [facility] Comment on above: Performed By: #### 1 8073136, 8248694, 37536697, 4535241, 8365611, 0754641, 78227928, 3536572 ####[facility] [address] [place] [address] ALT No additional P-5'-P [Catalytic activity/Vol] 14 Int._Unit/L Normal 6-46 [facility] Comment on above: Performed By: #### 1 6422362, 6921198, 68046855, 9291742, 7529300, 1827997, 98414471, 1935862 ####[facility] [address] [place] [address] Anion gap [Moles/Vol] 10 mmol/L Normal 6-16 [facility] Comment on above: Performed By: #### 1 2861789, 9314486, 21265075, 8155451, 6761652, 1230555, 42485876, 1402127 ####[facility] [address] [place] [address] AST [Catalytic activity/Vol] 15 Int._Unit/L Normal 5-43 [facility] Comment on above: Performed By: #### 1 2075777, 6395820, 57312381, 4330052, 3150273, 1706094, 49756600, 8239188 ####[facility] [address] [place] [address] Bilirubin [Mass/Vol] 0.5 mg/dL Normal 0.0-1.1 [facility] Comment on above: Performed By: #### 1 9015723, 0287156, 01257974, 7469736, 6498177, 7449099, 45487878, 8720745 ####[facility] [address] [place] [address] Calcium [Mass/Vol] 9.4 mg/dL Normal 8.9-11.1 [facility] Comment on above: Performed By: #### 1 0656759, 9827046, 86944832, 8205559, 1150862, 8018177, 18820525, 2404461 ####[facility] [address] [place] [address] Chloride [Moles/Vol] 106 mmol/L Normal 101-111 [facility] Comment on above: Performed By: #### 1 8654701, 9215666, 42759563, 1852124, 7895971, 3846596, 53207086, 9572940 ####[facility] [address] [place] [address] CO2 [Moles/Vol] 27 mmol/L Normal 21-31 [facility] Comment on above: Performed By: #### 1 5211770, 7592989, 02178586, 7026171, 6793086, 3213035, 17894180, 5621204 ####[facility] [address] [place] [address] Creatinine [Mass/Vol] 0.7 mg/dL Normal 0.5-1.3 [facility] Comment on above: Performed By: #### 1 2226308, 5561665, 63846384, 3244263, 5635307, 6953776, 62763848, 4143107 ####[facility] [address] [place] [address] Globulin (S) [Mass/Vol] 3.7 g/dL Normal 1.4-4.0 [facility] Comment on above: Performed By: #### 1 8926879, 4266084, 74479711, 9625046, 6938787, 2312549, 99046545, 8278154 ####[facility] [address] [place] [address] Glucose [Mass/Vol] 84 mg/dL Normal 55-199 [facility] Comment on above: Result Comment: If t his glucose result represents a fasting glucose, interpretation should refer to the following reference range: 55-99 mg/dL Performed By: #### 1 8277912, 9614938, 72993245, 9669513, 4358195, 6875932, 94550660, 4821689 ####[facility] [address] [place] [address] Potassium [Moles/Vol] 4.2 mmol/L Normal 3.5-5.3 [facility] Comment on above: Performed By: #### 1 5003770, 9897622, 19790410, 7606722, 0616676, 7028196, 91792965, 6855182 ####[facility] [address] [place] [address] Protein [Mass/Vol] 7.3 g/dL Normal 6.0-7.8 [facility] Comment on above: Performed By: #### 1 7314978, 2325919, 35183543, 3331589, 9714107, 1938618, 45606251, 4470737 ####[facility] [address] [place] [address] Sodium [Moles/Vol] 139 mmol/L Normal 135-145 [facility] Comment on above: Performed By: #### 1 1742963, 5878706, 86093330, 5089866, 7386156, 6247998, 38544844, 7468957 ####[facility] [address] [place] [address] Urea nitrogen [Mass/Vol] 10 mg/dL Normal 5-21 [facility] Comment on above: Performed By: #### 1 2194519, 3844853, 88986568, 2671209, 8683935, 0809383, 31693353, 3348666 ####[facility] [address] [place] [address] Urea nitrogen/Creatinine [Mass ratio] 14 No Units Normal 10-20 [facility] Comment on above: Performed By: #### 1 7522412, 2259199, 24055011, 1063117, 4429825, 3185466, 21348125, 9562830 ####[facility] [address] [place] [address] Lipid Panelon 03-27-2023 Cholesterol [Mass/Vol] 204 mg/dL High 120-200 [facility] Comment on above: Performed By: #### 1 9691352, 9702371, 20225954, 6373932, 0478450, 1479764, 70387446, 3688813 ####[facility] [address] [facility] [place] [place] [address] Cholesterol in HDL [Mass/Vol] 37 mg/dL Invalid Interpretation Code [facility] Comment on above: Result Comment: HDL > or equal to 60 mg/dL: Low cardiovascular risk HDL < 40 mg/dL : High cardiovascular risk Performed By: #### 1 4069565, 7266488, 96923616, 2209650, 1838675, 0228218, 32766628, 7169796 ####[facility] [address] [place] [address] Cholesterol in LDL [Mass/Vol] 145 mg/dL High <=129 [facility] Comment on above: Performed By: #### 1 4182663, 1393232, 30901301, 4285834, 3291425, 4830854, 21201263, 1178198 ####[facility] [address] [facility] [place] [address] Cholesterol in VLDL [Mass/Vol] 41 mg/dL High 7-40 [facility] Comment on above: Performed By: #### 1 2339216, 7611270, 30954948, 7718171, 3241782, 3088001, 47012118, 3058162 ####[facility] [address] [facility] [place] [address] Triglyceride [Mass/Vol] 203 mg/dL High <=149 [facility] Comment on above: Performed By: #### 1 9282966, 1705147, 73117225, 5739098, 1349004, 9171660, 45487024, 8509709 ####[facility] [address] [place] [address] Morphon 03-27-2023 Morphology Rashawn (Bld) [Interp] See Morphology [facility] Comment on above: Order Comment: Order Added by Discern Expert. Performed By: #### 1 6895971, 8587299, 07051711, 4189157, 6713458, 8227747, 84311220, 0909128 ####[facility] [address] [place] [address] Physician Orderon 03-27-2023 Physician Order [id number] CD:127 [facility] TSHon 03-27-2023 TSH Qn 1.21 m[IU]/L Normal 0.34-5.60 [facility] Comment on above: Performed By: #### 1 1153877, 4322431, 95602046, 1389362, 4544305, 9468709, 85508971, 1411419 ####[facility] [address] [place] [address] eGFRon 03-27-2023 GFR/1.73 sq M.predicted among non-blacks MDRD (S/P/Bld) [Vol rate/Area] 123 mL/min/1.73 m2 Normal >=59 [facility] Comment on above: Order Comment: Order added by Discern Expert. Result Comment: Rug Hooker daryl kidney disease could be indicated at eGFR's of less than 60 mL/min/1.73m2. Kidney failure is indicated at less than 15 mL/min/1.73m2. Performed By: #### 1 2130117, 0751964, 08956354, 0725804, 0832338, 4674569, 71167255, 7737239 ####[facility] [address] [place] [address] Consent for Treatmenton Consent for Treatment [id number] D:127 [facility] Discharge Instructionson Discharge Instructions [id number] CD:127 [facility] ED Clinical Summaryon 2022 ED Clinical Summary (Inserted Image. Paola ble to display) [address] [address] ED Clinical Summary Person Information Name: SCARLET DURAND/[facility] Age: 23 Years : 2000 Sex: Female Language: Venezuelan PCP: ORLANDO PACE MD Marital Status: Phone: [phone] Visit Id: Visit Reason: Back pain; BACK [...] [address] [facility] [id number] PHYS DOC NOTES: MEDICAL INFORMATION: Prescriptions Given: New Medications [facility], [address] [place], [place] [id number], [phone] methylPREDNISolone (Medrol 4 mg Tab) 1 Packets [...] up: With: Address: When: ORLANDO PACE [address] [place] [address] In 3 days 03/02/2023 Comments: Call the [...] worsening symptoms. DIAGNOSIS: Pain in back [facility] ED Note-Physicianon 02-28-20 23 ED Note-Physician Basic Information Time Seen: Bi Galeana DO 02/27/2023 10:53 Chief Complaint Pt reports back [...] day(s), # 21 tab(s), Refills(s) 0, Pharmacy: [facility], 163, cm, 02/27/23 10:56:00 EDT, Height/Length Dosing, 118, kg, 02/27/23 10:56:00 EDT, Weight Dosing Disposition Plan Patient Discharge Condition Stable Discharge Disposition Home Discharge Prescription List Prescriptions Medrol 4 mg Tab, 1 packet(s), Oral, As Directed Follow-up With When Contact Information ORLANDO PACE In 3 days 03/02/2023 EDT [address] [place] [address]- Additional Instructions: Call the office of your [...] 1 diso (more content not included)... Normal Daily [facility] Comment on above: Result Comment: Elec trodarylally Signed By: Bi Galeana DO\.br\Date and Time [...] as you can. 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 [facility] ED Patient Summaryon 023 ED Patient Summary (Inserted Image. Paola ble to display) [place] [id number] Patient Discharge Instructions Person Information Name: SCARLET DURAND Age: 23 Years Arrival Date: 02/27/2023 10:49:40 Discharge Diagnosis: Pain in back Primary Care Physician: ORLANDO PACE MD Provider Information Primary Provider: Bi Galeana DO Advanced Ship Loader:None The exam and treatment you received in the Emergency Department were for an urgent problem and are not intended as complete care. It is important that you follow up with a doctor, nurse practitioner, or physician?s therapist's assistant for ongoing care. If your symptoms [...] Follow-up Instructions: With: Address: When: ORLANDO PACE [address] [place] [address] In 3 days 03/02/2023 Comments: Call the [...] opioids can be used to help relieve hpuvtmai-kr-drwkhz pain and are often prescribed following a [...] involve prescription opioids. (more content not included)... [facility] Consent for Treatmenton 12-27 Consent for Treatment [id number] D:127 [facility] Discharge Instructionson Discharge Instructions [id number] CD:127 [facility] ED Clinical Summaryon 2022 ED Clinical Summary (Inserted Image. Paola ble to display) [place] [id number] ED Clinical Summary Person Information Name: SCARLET DURAND/[facility] Age: 23 Years : 2000 Sex: Female Language: Venezuelan PCP: ORLANDO PACE MD Marital Status: Phone: [phone] Visit Id: Visit Reason: Neck pain; Back [...] [address] [facility] [id number] PHYS DOC NOTES: MEDICAL INFORMATION: Prescriptions Given: New Medications [facility], [address] [place], [place] [id number], [phone] methocarbamol (Robaxin-750 oral tablet) 1 Tablets By Mouth 3 times a day for 7 Days. Refills: 0. Medications to Continue Taking That Have Changed [facility], [address] [place], [place] [id number], [phone] START: naproxen (naproxen 500 mg Tab) 1 [...] Instructions: Neck Exercises; Muscle Cramps and Spasms, Cchl-jf-Xcde Follow up: With: Address: When: ORLANDO PACE [address] [place] [address] In 3 days DIAGNOSIS: Neck muscle spasm; Neck pain [facility] ED Note-Physicianon 01-15-20 ED Note-Physician Basic Information [...] note for work educated on neck exercises Kae and Lizeth follow-up in outpatient setting return to ER symptoms change or worsen. I, Dr. Rivera had a zpks-nh-lold interaction with the patient. I personally performed a physical exam and medical decision making. I have verified the documentation by the student as accurately representing the information obtained. Shared decision making: Code status: Assessment/Plan Neck muscle spasm (M62.838: Other muscle spasm) Neck pain (M54.2: Cervicalgia) Orders: methocarbamol, 750 mg = 1 tab(s), Oral, TID, X 7 day(s), # 21 tab(s), Refills(s) 0, Pharmacy: [facility], 160, cm, 01/14/23 10:35:00 EDT, Height/Length Dosing, 121, kg, 01/14/23 10:35:00 EDT, Weight Dosing naproxen, 500 mg = 1 tab(s), Oral, BID, Take one tab by mouth two times a day, # 14 tab(s), Refills(s) 0, Pharmacy: [facility], 160, cm, 01/14/23 10:35:00 EDT, Height/Length Dosing, 121, kg, 01/14/23 10:35:00 EDT, Weight Dosing XR Spine Cervical 2 or 3 Views Disposition Plan Discharge Prescription List Prescriptions naproxen 500 mg Tab, 500 mg= 1 tab(s), Oral, BID Robaxin-750 oral tablet, 750 mg= 1 tab(s), Oral, TID Follow-up With When Contact Information ORLANDO PACE In 3 days [address] [place] [address]- Additional Instructions: Patient Education Neck Exercises Muscle Cramps and Spasms, Omwh-ho-Zxoj Problem List/Past Medical History Ongoing Adult BMI [...] tab(s), Or (more content not included)... [facility] Comment on above: Result Comment: Elec tronically Signed By: Nabila Jane\.br\Date and Time Signed: 01/14/23 11:12 EDT\.br\Electronically Co-Signed By: Blake Rivera DO\.pedro\Date and Time Co-Signed: 01/14/23 11:33 EDT ED [...] This information (more content not included)... [facility] ED Patient Summaryon 023 ED Patient Summary (Inserted Image. Paola ble to display) [place] [id number] Patient Discharge Instructions Person Information Name: SCARLET DURAND Age: 23 Years Arrival Date: 01/14/2023 10:29:10 Discharge Diagnosis: Neck muscle spasm; Neck pain Primary Care Physician: ORLANDO PACE MD Provider Information Primary Provider: Blake Rivera DO Advanced Ship Loader:None The exam and treatment you received in the Emergency Department were for an urgent problem and are not intended as complete care. It is important that you follow up with a doctor, nurse practitioner, or physician?s therapist's assistant for ongoing care. If your symptoms [...] Follow-up Instructions: With: Address: When: ORLANDO PACE [address] [place] [address] In 3 days In the event that this physician does not participate in your insurance network, please consult with your insurance company to find a nearby participating provider. Patient Education Materials: Neck Exercises; Muscle Cramps and Spasms, Xaht-vt-Vnsv A MESSAGE TO ALL PATIENTS REGARDING OPIOIDS PRESCRIPTION OPIOIDS: WHAT YOU NEED TO KNOW Prescription opioids can be used to help relieve vksafhul-qa-zfsdlc pain and are often prescribed following a [...] be struggling with addiction, tell your health child adolescent care and ask for guidance or call [facility] National Helpline at 7-700-079-LMUP. d Source: Department of (more content not included)... Normal [facility] Prescriptions/Work Noteson 0 01-14-2023 Prescriptions/Work Notes [id number] CD:127 Normal [facility] XR Spine Cervical 2 or 3 Vie [...] mGy = na DAP = na [facility] CHEMISTRYOrdered By: SYSTEM SYSTEM on 11-27-2022 Albumin [...] [Mass/Vol] Negative (11/27/22 9:45 PM) Normal Negative [facility] Auto SS Hemoglobin Ql (U) 1+ *ABN* (11/27/22 9:45 PM) Invalid Interpretation Code Negative [facility] UA Auto SS Ketones (U) [Mass/Vol] Negative (11/27/22 9:45 PM) Normal Negative [facility] Auto SS [place].plasma/[place]. RBC (Bld) [Mass ratio] 4-20 /HPF Normal 0-3/HPF [facility] UA A uto SS Mucus Ql (Urine sed) Trace (11/27/22 9:45 PM) Normal [facility] Auto SS Nitrite Ql (U) Negative (11/27/22 9:45 PM) Normal Negative [facility] UA Auto SS pH (U) 6.0 *NA* (11/27/22 9:45 PM) Invalid Interpretation Code 5.0 - 9.0 [facility] UA Auto SS Protein (U) [Mass/Vol] Negative (11/27/22 9:45 PM) Normal Negative [facility] UA Auto SS Specific gravity (U) [Rel density] 1.025 *NA* (11/27/22 9:45 PM) Invalid Interpretation Code 1.005 - 1.030 [facility] Auto SS UA Spec Desc Clean Catch (11/27/22 9:45 PM) Normal [facility] UA Auto SS Urobilinogen Qn (U) 0.1142252 {Lei'U}/dL Normal 0.0 - 1.0 EU/dL [facility] Auto SS WBC Auto Ql (U) Negative (11/27/22 9:45 PM) Normal Negative [facility] Auto SS WBC LM.HPF (Urine sed) [#/Area] 0-5 /HPF Normal 0-5/HPF [facility] UA Auto SS HEMATOLOGYOrdered By: Lois Thomas on 11-07-2022 Anisocytosis Ql (Bld) Present (11/07/22 6:16 AM) Normal [facility] HemeManSS Erythrocyte distribution width (RBC) [Ratio] 16.3 % High 10.9 - 14.2 % [facility] HemeAutoSS Hematocrit (Bld) [Volume fraction] 29.1 % Low 34.0 - 46.0 % [facility] HemeAutoSS Hemoglobin (Bld) [Mass/Vol] 9.3 g/dL Low 12.0 - 16.0 gm/dL [facility] HemeAutoSS Hypochromia Auto Ql (Bld) Present (11/07/22 6:16 AM) Normal [facility] HemeManSS MCH (RBC) [Entitic mass] 24.6 pg Low 27.0 - 34.0 pg [facility]eAutoSS MCHC (RBC) [Mass/Vol] 31.9 g/dL Normal 31.4 - 36.0 gm/dL [facility] HemeAutoSS MCV (RBC) [Entitic vol] 77.1 fL Low 80.0 - 100.0 fL [facility] HemeAutoSS Morphology Rashawn (Bld) [Interp] See Morphology (11/07/22 6:16 AM) Normal [facility] HemeManSS Platelet mean volume (Bld) [Entitic vol] [...] Screen method >50 ng/mL Ql (U) Negative (11/06/22 1:00 PM) Normal Negative [facility] Remisol Anion [...] Normal >=59mL/min/ 1.73 m2 [facility] Chem S GFR/1.73 sq M.predicted among non-blacks [...] 16.4 % High 10.9 - 14.2 % [facility] HemeAutoSS Hematocrit (Bld) [Volume fraction] 35.1 % Normal 34.0 - 46.0 % [facility] HemeAutoSS Hemoglobin (Bld) [Mass/Vol] 11.0 g/dL Low 12.0 - 16.0 gm/dL [facility] HemeAutoSS Hypochromia Auto Ql (Bld) Present (11/06/22 9:49 AM) Normal [facility] HemeManSS MCH (RBC) [Entitic mass] 24.0 pg [...] Present (11/06/22 9:49 AM) Normal [facility] HemeManSS Platelet mean volume (Bld) [Entitic vol] [...] Interpretation Code Negative [facility] UA Auto SS [place].plasma/[place]. RBC (Bld) [Mass ratio] 0-3 /HPF Normal [...] [facility] UA Auto SS Urobilinogen Qn (U) 1.7028004 {Lei'U}/dL Normal 0.0 - 1.0 EU/dL [facility] [...] Interpretation Code Negative [facility] UA Auto SS [place].plasma/[place]. RBC (Bld) [Mass ratio] 0-3 /HPF Normal 0-3/HPF [facility] UA A uto SS Nitrite Ql (U) [...] PM) Invalid Interpretation Code 1.005 - 1.030 [facility] UA Auto SS UA Spec Desc Clean Catch (11/02/22 6:46 PM) Normal [facility] UA Auto SS Urobilinogen Qn (U) 1.2170982 {Lei'U}/dL Normal 0.0 - 1.0 EU/dL [facility] UA Auto SS WBC Auto Ql (U) Negative (11/02/22 6:46 PM) Normal Negative [facility] UA Auto SS WBC LM.HPF (Urine sed) [#/Area] 0-5 /HPF Normal 0-5/HPF [facility] UA Auto SS Amphetamine Screen Ql (U)Ord ered By: EVAN MOORE on 10-26-2022 Amphetamines Ql (U) Negative Negative [facility] Automated erythrocytes count in urine sediment (number/area)Ordered By: EVAN MOORE on 10-26-2022 RBC Auto (Urine sed) [#/Area] 3-4 [HPF] 0-4 [facility] Automated leukocytes count i n urine sediment (number/area)Ordered By: EVAN MOORE on 10-26-2022 WBC Auto (Urine sed) [#/Area] 20-49 [HPF] 0-4 [facility] Barbiturates [Presence] in U rine by Screen methodOrdered By: EVAN MOORE on 10-26-2022 Barbiturates Screen Ql (U) Negative Negative [facility] Basophils Auto (Bld) [#/Vol] Ordered By: EVAN MOORE on 10-26-2022 Basophils (Bld) [#/Vol] 0.0 10*3/uL 0.0-0.2 [facility] Basophils/100 WBC Auto (Bld) Ordered By: EVAN MOORE on 10-26-2022 Basophils/100 WBC (Bld) 0.4 % . [facility] Benzodiazepines Screen Ql (U )Ordered By: EVAN MOORE on 10-26-2022 Benzodiazepines Ql (U) Negative Negative [facility] Benzoylecgonine [Presence] i n Urine by Screen methodOrdered By: EVAN MOORE on 10-26-2022 Benzoylecgonine Screen Ql (U) Negative Negative [facility] Bilirubin Test strip Ql (U)O rdered By: EVAN MOORE on 10-26-2022 Bilirubin Ql (U) Negative Negative [facility] Color Auto (U)Ordered By: PEDRO MOORE on 10-26-2022 Color (U) Yellow Yellow [facility] Eosinophils Auto (Bld) [#/Vo l]Ordered By: EVAN MOORE on 10-26-2022 Eosinophils (Bld) [#/Vol] 0.0 10*3/uL 0.0-0.45 [facility] Eosinophils/100 WBC Auto (Bl d)Ordered By: EVAN MOORE on 10-26-2022 Eosinophils/100 WBC (Bld) 0.3 % . [facility] Erythrocyte distribution wid th Auto (RBC) [Ratio]Ordered By: EVAN MOORE on 10-26-2022 Erythrocyte distribution width (RBC) [Ratio] 15.8 % 11.9-15.3 [facility] Glucose Glucometer (BldC) [M ass/Vol]Ordered By: EVAN MOORE on 10-26-2022 Glucose [Mass/Vol] 91 mg/dL [facility] Comment on above: Random Glucose Refer ence Range is dependent on time and content of last meal. Glucose of more than 200 mg/dL in a nonstressed, ambulatory subject supports the diagnosis of Diabetes Mellitus. Hematocrit Auto (Bld) [Volum e fraction]Ordered By: EVAN MOORE on 10-26-2022 Hematocrit (Bld) [Volume fraction] 32.6 % 34.0-46.4 [facility] Hemoglobin [Mass/volume] in BloodOrdered By: EVAN MOORE on 10-26-2022 Hemoglobin (Bld) [Mass/Vol] 10.6 g/dL 11.8-15.4 [facility] Ketones Auto test strip (U) [Mass/Vol]Ordered By: EVAN MOORE on 10-26-2022 Ketones (U) [Mass/Vol] Negative Negative [facility] Laboratory - UrinalysisOrder ed By: EVAN MOORE on 10-26-2022 Hyaline casts LM Ql (Urine sed) 0-8 [LPF] 0-8 [facility] Leukocytes [#/volume] correc emmett for nucleated erythrocytes in Blood by Automated counOrdered By: EVAN MOORE on 10-26-2022 WBC corrected for nucl RBC Auto (Bld) [#/Vol] 10.6 10*3/uL 3.8-11.6 [facility] Lymphocytes Auto (Bld) [#/Vo l]Ordered By: EVAN MOORE on 10-26-2022 Lymphocytes (Bld) [#/Vol] 2.1 10*3/uL 1.00-4.8 [facility] Lymphocytes/100 WBC Auto (Bl d)Ordered By: EVAN MOORE on 10-26-2022 Lymphocytes/100 WBC (Bld) 19.8 % . [facility] MCH Auto (RBC) [Entitic mass ]Ordered By: EVAN MOORE on 10-26-2022 MCH (RBC) [Entitic mass] 25.1 pg 24.7-34.3 [facility] MCHC Auto (RBC) [Mass/Vol]Or dered By: EVAN MOORE on 10-26-2022 MCHC (RBC) [Mass/Vol] 32.5 g/dL 32.0-35.0 Fir [facility] MCV Auto (RBC) [Entitic vol] Ordered By: EVAN MOORE on 10-26-2022 MCV (RBC) [Entitic vol] 77.4 fL 80-100 [facility] Monocytes Auto (Bld) [#/Vol] Ordered By: EVAN MOORE on 10-26-2022 Monocytes (Bld) [#/Vol] 0.5 10*3/uL 0.0-0.8 [facility] Monocytes/100 WBC Auto (Bld) Ordered By: EVAN MOORE on 10-26-2022 Monocytes/100 WBC (Bld) 4.6 % . [facility] Neutrophils Auto (Bld) [#/Vo l]Ordered By: EVAN MOORE on 10-26-2022 Neutrophils (Bld) [#/Vol] 7.9 10*3/uL 1.8-7.7 [facility] Neutrophils/100 WBC Auto (Bl d)Ordered By: EVAN MOORE on 10-26-2022 Neutrophils/100 WBC (Bld) 74.9 % . [facility] Nitrite Test strip Ql (U)Ord ered By: EVAN MOORE on 10-26-2022 Nitrite Ql (U) Negative Negative [facility] Nucleated erythrocytes [Pres ence] in Blood by Automated countOrdered By: EVAN MOORE on 10-26-2022 Nucleated RBC Auto Ql (Bld) 0.1 /100{WBC} 0-0.5 [facility] Opiates [Presence] in Urine by Screen methodOrdered By: EVAN MOORE on 10-26-2022 Opiates Screen Ql (U) Negative Negative Fir [facility] Phencyclidine Screen Ql (U)O rdered By: EVAN MOORE on 10-26-2022 Phencyclidine Ql (U) Negative Negative [facility] Comment on above: These are unconfirme d results and should not be used for legal purposes. Drug Cut-Off Concentration: AMPH 1000 ng/mL ДМИТРИЙ 200 ng/mL SUAD 200 ng/mL COCM 300 ng/mL OP 300 ng/mL PCP 25 ng/mL Platelet mean volume Auto (B ld) [Entitic vol]Ordered By: EVAN MOORE on 10-26-2022 Platelet mean volume (Bld) [Entitic vol] 8.0 fL 6.3-10.7 [facility] Platelets Auto (Bld) [#/Vol] Ordered By: EVAN MOORE on 10-26-2022 Platelets (Bld) [#/Vol] 360 10*3/uL 150-450 [facility] Protein Auto test strip (U) [Mass/Vol]Ordered By: EVAN MOORE on 10-26-2022 Protein (U) [Mass/Vol] 30 mg/dL [facility] RBC Auto (Bld) [#/Vol]Ordere d By: EVAN MOORE on 10-26-2022 RBC (Bld) [#/Vol] 4.21 10*6/uL 3.60-5.00 [facility] Reagin Ab [Presence] in Seru m by RPROrdered By: EVAN MOORE on 10-26-2022 Reagin Ab RPR Ql (S) Non-Reactive Non Reactive [facility] Comment on above: Performed at: - L [address] [id number] Director: Keith Pitts PhD, Phone: [phone] Specific gravity Auto test s trip (U) [Rel density]Ordered By: EVAN MOORE on 10-26-2022 Specific gravity (U) [Rel density] 1.018 1.001-1.030 [facility] Squamous epithelial cells de tection in urine sediment by light microscopyOrdered By: EVAN MOORE on 10-26-2022 Epithelial cells.squamous LM Ql (Urine sed) 5-9 [HPF] 0-2 [facility] Urine bacteria detection by automated methodOrdered By: EVAN MOORE on 10-26-2022 Bacteria Auto Ql (U) 3+ None Seen [facility] Urine clarity by refractomet ry automatedOrdered By: EVAN MOORE on 10-26-2022 Clarity Refractometry automated (U) Cloudy Clear [facility] Urine culture routineOrdered By: EVAN MOORE on 10-26-2022 Bacteria identified Cx Nom (U) 2 Days [facility] Urine glucose measurement by automated test strip (mass/volume)Ordered By: EVAN MOORE on 10-26-2022 Glucose Auto test strip (U) [Mass/Vol] Normal mg/dL Normal [facility] Urine hemoglobin detection b y automated test stripOrdered By: EVAN MOORE on 10-26-2022 Hemoglobin Auto test strip Ql (U) Negative Negative [facility] Urine leukocyte esterase det ection by automated test stripOrdered By: EVAN MOORE on 10-26-2022 Leukocyte esterase Auto test strip Ql (U) 3+ Negative [facility] Urobilinogen Auto test strip (U) [Mass/Vol]Ordered By: EVAN MOORE on 10-26-2022 Urobilinogen (U) [Mass/Vol] Normal mg/dL Normal [facility] WBC Auto (Bld) [#/Vol]Ordere d By: EVAN MOORE on 10-26-2022 WBC (Bld) [#/Vol] 10.6 10*3/uL 3.8-11.6 [facility] pH Auto test strip (U)Ordere d By: EVAN MOORE on 10-26-2022 pH (U) 7.0 [pH] 5.0-9.0 [facility] URINALYSISOrdered By: Hyun Sandoval on 10-20-2022 [...] Interpretation Code Negative [facility] UA Auto SS [place].plasma/[place]. RBC (Bld) [Mass ratio] 0-3 /HPF Normal [...] Desc Clean Catch (10/20/22 1:48 PM) Normal [facility] UA Auto SS Urobilinogen Qn (U) 2.9072041 {Lei'U}/dL Invalid Interpretation Code 0.0 - 1.0 EU/dL [facility] UA Auto SS WBC Auto Ql (U) 1+ *ABN* (10/20/22 1:48 PM) Invalid Interpretation Code Negative [facility] UA Auto SS WBC LM.HPF (Urine sed) [#/Area] 0-5 /HPF Normal 0-5/HPF [facility] UA Auto SS Amphetamine Screen Ql (U)Ord ered By: Sanaz Mathur on 09-09-2022 Amphetamines Ql (U) Negative Negative [facility] Automated erythrocytes count in urine sediment (number/area)Ordered By: Sanaz Mathur on 09-09-2022 RBC Auto (Urine sed) [#/Area] 1-2 [HPF] 0-4 [facility] Automated leukocytes count i n urine sediment (number/area)Ordered By: Sanaz Mathur on 09-09-2022 WBC Auto (Urine sed) [#/Area] 20-49 [HPF] 0-4 [facility] Barbiturates [Presence] in U rineOrdered By: Sanaz Mathur on 09-09-2022 Barbiturates Ql (U) Negative Negative [facility] Benzodiazepines [Presence] i n UrineOrdered By: Sanaz Mathur on 09-09-2022 Benzodiazepines Ql (U) Negative Negative [facility] Bilirubin Test strip Ql (U)O rdered By: Sanaz Mathur on 09-09-2022 Bilirubin Ql (U) Negative Negative [facility] Casts typing in urine sedime nt by light microscopyOrdered By: Sanaz Mathur on 09-09-2022 Casts LM Nom (Urine sed) None seen [LPF] None Seen [facility] Color Auto (U)Ordered By: Nevaeh Mathur on 09-09-2022 Color (U) Dark yellow Yellow [facility] Ketones Auto test strip (U) [Mass/Vol]Ordered By: Sanaz Mathur on 09-09-2022 Ketones (U) [Mass/Vol] 4+ Negative Fi [facility] - Drug toxicology Ordered By: Sanaz Mathur on 09-09-2022 Opiates Ql (U) Negative Negative [facility] Laboratory - UrinalysisOrder ed By: Sanaz Mathur on 09-09-2022 Hyaline casts LM Ql (Urine sed) None seen [LPF] 0-8 [facility] Nitrite Test strip Ql (U)Ord ered By: Sanaz Mathur on 09-09-2022 Nitrite Ql (U) Negative Negative [facility] Phencyclidine Screen Ql (U)O rdered By: Sanaz Mathur on 09-09-2022 Phencyclidine Ql (U) Negative Negative [facility] Comment on above: These are unconfirme d results and should not be used for legal purposes. Drug Cut-Off Concentration: AMPH 1000 ng/mL ДМИТРИЙ 200 ng/mL SUAD 200 ng/mL COCM 300 ng/mL OP 300 ng/mL PCP 25 ng/mL Protein Auto test strip (U) [Mass/Vol]Ordered By: Sanaz Mathur on 09-09-2022 Protein (U) [Mass/Vol] 30 mg/dL Negative Fi [facility] Specific gravity Auto test s trip (U) [Rel density]Ordered By: Sanaz Mathur on 09-09-2022 Specific gravity (U) [Rel density] 1.029 1.001-1.030 [facility] Squamous epithelial cells de tection in urine sediment by light microscopyOrdered By: Sanaz Mathur on 09-09-2022 Epithelial cells.squamous LM Ql (Urine sed) 10-19 [HPF] 0-2 [facility] Urine bacteria detection by automated methodOrdered By: Sanaz Mathur on 09-09-2022 Bacteria Auto Ql (U) 2+ None Seen [facility] Urine clarity by refractomet ry automatedOrdered By: Sanaz Mathur on 09-09-2022 Clarity Refractometry automated (U) Cloudy Clear [facility] Urine cocaine detectionOrder ed By: Sanaz Mathur on 09-09-2022 Cocaine Ql (U) Negative Negative [facility] Urine culture routineOrdered By: Sanaz Mathur on 09-09-2022 Bacteria identified Cx Nom (U) 2 Days [facility] Urine glucose measurement by automated test strip (mass/volume)Ordered By: Sanaz Mathur on 09-09-2022 Glucose Auto test strip (U) [Mass/Vol] Normal mg/dL Normal [facility] Urine hemoglobin detection b y automated test stripOrdered By: Sanaz Mathur on 09-09-2022 Hemoglobin Auto test strip Ql (U) Negative Negative [facility] Urine leukocyte esterase det ection by automated test stripOrdered By: Sanaz Mathur on 09-09-2022 Leukocyte esterase Auto test strip Ql (U) 2+ Negative [facility] Urobilinogen Auto test strip (U) [Mass/Vol]Ordered By: Sanaz Mathur on 09-09-2022 Urobilinogen (U) [Mass/Vol] Normal mg/dL Normal [facility] pH Auto test strip (U)Ordere d By: Sanaz Mathur on 09-09-2022 pH (U) 6.0 [pH] 5.0-9.0 [facility] Office Visit (Family Medicin e)on 09-03-2022 [...] Status: Hold For - Scheduling Requested for: [id number] Patient Discussion/Summary Patient education provided. 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 Over the last 2 weeks have you felt down, depressed or hopeless? (If yes, answer PHQ-9 below)No PHQ-2 #2. Over the last 2 weeks have you felt little interest or pleasure in doing things? (If yes, answer PHQ-9 below)No Falls Screening (Age 18+)a) No falls within the last year O2 Kjgfexcoyo44 Neck Ggjwscvbotqyp95 Physical Exam General exam: Patient awake and [...] Sep 03 2022 10:21AM EST (Author) Normal [facility] Serum or plasma glucose [facility] 3 hours panelOrdered By: EVAN MOORE on 08-16-2022 Glucose tolerance 3 hours panel See comment [facility] Comment on above: FASTING 102 H Col: 0 08/16/22 0600 1HR GLU 192 Col: 08/16/22 0751 2HR GLU 111 Col: 08/16/22 0845 3HR GLU 119 Col: 08/16/22 0943 Hematocrit Auto (Bld) [Volum e fraction]Ordered By: EVAN MOORE on 08-09-2022 Hematocrit (Bld) [Volume fraction] 36.1 % 34.0-46.4 [facility] Hemoglobin [Mass/volume] in BloodOrdered By: EVAN MOORE on 08-09-2022 Hemoglobin (Bld) [Mass/Vol] 11.7 g/dL 11.8-15.4 [facility] No Panel InformationOrdered By: EVAN MOORE on 08-09-2022 Glucose 1 Hour Postprandial (Timed) 155 mg/dL 60-140 [facility] Streptococcus pyogenes antig en detectionOrdered By: Gary Candelario on 04-20-2022 S. pyogenes Ag Ql (Unsp spec) [facility] CHEMISTRYOrdered By: [facility] on 03-25-2022 Amphetamines Screen method >1000 [...] % Normal <=5.9% [facility] ChemAutoSS HEMATOLOGYOrdered By: [facility] on 03-25-2022 Basophils/100 WBC (Bld) 0.5 [...] [facility] HemeAutoSS Comment on above: Result Comment: Rosie reynoso reviewed by [facility]. URINALYSISOrdered By: Atif Mendez on 03-25-2022 Bacteria [...] PM) Normal Negative [facility] UA Auto SS [place].plasma/[place]. RBC (Bld) [Mass ratio] 0-3 /HPF Normal [...] [facility] UA Auto SS Urobilinogen Qn (U) 0.2355815 {Lei'U}/dL Normal 0.0 - 1.0 EU/dL [facility] UA Auto SS WBC Auto Ql (U) Negative (03/25/22 3:55 PM) Normal Negative [facility] UA Auto SS WBC LM.HPF (Urine sed) [#/Area] 0-5 /HPF Normal 0-5/HPF [facility] UA Auto SS Echocardiogramon 02-07-2022 Echocardiography [facility] , [address] [place] [address], [address], [place], [place] [address] and TRANSTHORACIC ECHOCARDIOGRAM REPORT Patient Name: SCARLET DURAND Reading Physician: [id number] Alejandro Castillo MD Study Date: 02/07/2022 Referring Physician: Mattie Lipscomb MRN/PID: [id number] PCP: Accession/Order#: [id number] Department Location: [facility] Date of : 2000 Fellow: Gender: F Nurse: Admit Date: Press Smith Helper: Mattie Collier [facility] Admission Status: Outpatient Additional Staff: Height: 162.56 cm CC Report to: Weight: 123.38 kg Study Type: Echocardiogram BSA: 2.23 m2 Blood Pressure: 129 /87 mmHg Diagnosis/ICD: R07.89-Other chest pain Indication: Atypical chest pain Procedure/CPT: Echo Complete w Full [id number] Patient History: Pertinent History: Bipolar disorder; Schizophrenia; [...] cm/s AORTA: Asc Ao Diam 2.98 cm [id number] Alejandro Castillo MD Electronically signed on 02/07/2022 at 5:18:42 PM Final Normal [facility] CBCon 01-17-2022 RBC 5.26 x10E12/L High 4.00 - 5.20 [facility] Comment on above: Performed By: #### U RINC #### [facility] [address] [place] [address] CBCon 01-16-2022 Erythrocyte distribution width (RBC) [Ratio] 17.7 % High 11.5 - 14.5 [facility] Work Phone: Comment on above: Reference Range: 11. 5 - 14.5 Performed By: #### U RINC #### [facility] [address] [place] [address] Hematocrit (Bld) [Volume fraction] 43.5 % Normal 36.0 - 46.0 [facility] Work Phone: Comment on above: Reference Range: 36. 0 - 46.0 Performed By: #### U RINC #### [facility] [address] [place] [address] Hemoglobin (Bld) [Mass/Vol] 13.1 g/dL Normal 12.0 - 16.0 [facility] Work Phone: Comment on above: Reference Range: 12. 0 - 16.0 Performed By: #### U RINC #### [facility] [address] [place] [address] MCHC (RBC) [Mass/Vol] 30.1 g/dL Low 32.0 - 36.0 [facility]st Work Phone: Comment on above: Reference Range: 32. 0 - 36.0 Performed By: #### U RINC #### [facility] [address] [place] [address] MCV (RBC) [Entitic vol] 83 fL Normal 80 - 100 M [facility] erst Work Phone: Comment on above: Performed By: #### U RINC #### [facility] [address] [place] [address] Platelets (Bld) [#/Vol] 406 10*3/uL Normal 150 - 450 [facility] Work Phone: Comment on above: Performed By: #### U RINC #### [facility] [address] [place] [address] WBC (Bld) [#/Vol] 11.8 10*3/uL High 4.4 - 11.[address] MP-[address] [facility] ers Work Phone: Comment on above: Performed By: #### U RINC #### [facility] [address] [place] [address] COMPREHENSIVE PANELon 2021 Albumin [Mass/Vol] 4.2 g/dL Normal 3.4 - 5.0 [facility] Comment on above: Performed By: #### C MP #### [address] [id number] ALP [Catalytic activity/Vol] 64 U/L Normal 33 - 110 [facility] Comment on above: Performed By: #### C MP #### [address] [id number] ALT [Catalytic activity/Vol] 12 U/L Normal 7 - 45 [facility] Comment on above: Result Comment: Joycelyn ents treated with Sulfasalazine may generate falsely decreased results for ALT. Performed By: #### C MP #### [address] [id number] Anion gap [Moles/Vol] 12 mmol/L Normal 10 - 20 [facility] Comment on above: Performed By: #### C MP #### [address] [id number] AST [Catalytic activity/Vol] 18 U/L Normal 9 - 39 [facility] Comment on above: Performed By: #### C MP #### [address] [id number] Bilirubin [Mass/Vol] 0.5 mg/dL Normal 0.0 - 1.2 [facility] Comment on above: Performed By: #### C MP #### [address] [id number] Calcium [Mass/Vol] 9.6 mg/dL Normal 8.6 - 10.3 [facility] Comment on above: Performed By: #### C MP #### [address] [id number] Chloride [Moles/Vol] 102 mmol/L Normal 98 - 107 [facility] Comment on above: Performed By: #### C MP #### [address] [id number] Creatinine [Mass/Vol] 0.66 mg/dL Normal 0.50 - 1.05 [facility] Comment on above: Performed By: #### C MP #### [address] [id number] eGFR FEMALE >90 Normal >90 [facility] Comment on above: Result Comment: CALC ULATIONS OF ESTIMATED GFR ARE PERFORMED USING THE 2020 CKD-EPI STUDY REFIT EQUATION WITHOUT THE RACE VARIABLE FOR THE IDMS-TRACEABLE CREATININE METHODS. https://jasn.asnjournals.org/content/early//ASN.2020 647869 Performed By: #### C MP #### [address] [id number] Glucose [Mass/Vol] 71 mg/dL Low 74 - 99 [facility] Comment on above: Performed By: #### C MP #### [address] [id number] HCO3 (Bld) [Moles/Vol] 27 mmol/L Normal 21 - 32 [facility] Comment on above: Performed By: #### C MP #### [address] [id number] Potassium [Moles/Vol] 4.1 mmol/L Normal 3.5 - 5.3 [facility] Comment on above: Performed By: #### C MP #### [address] [id number] Protein [Mass/Vol] 7.9 g/dL Normal 6.4 - 8.2 [facility] Comment on above: Performed By: #### C MP #### [facility] [address] [place], [place] [id number] Sodium [Moles/Vol] 137 mmol/L Normal 136 - 145 [facility] Comment on above: Performed By: #### C MP #### [facility] [address] [place], [place] [id number] Urea nitrogen [Mass/Vol] 13 mg/dL Normal 6 - 23 [facility] Comment on above: Performed By: #### C MP #### [facility] [address] [place], [place] [phone] Cult, Urineon 01-16-2022 Bacteria identified Cx Nom (U) Abnormal [facility] Work Phone: FERRITINon 01-16-2022 FERRITIN 122 ug/L Normal 8 - 150 [facility] Comment on above: Performed By: #### F ERRI #### [facility] [address] [place] [address] Ferritin, Serumon 01-16-2022 Ferritin [Mass/Vol] 122 ug/L 8 - 150 [facility] Work Phone: HEMOGLOBIN A1Con 01-16-2022 Glucose [Mass/Vol] 105 mg/dL Normal [facility] Comment on above: Performed By: #### U RINC #### [facility] [address] [place] [address] HbA1c (Bld) [Mass fraction] 5.3 % Normal [facility] Comment on above: Result Comment: Diag nosis of Diabetes-Adults Non-Diabetic: < or = 5.6% Increased risk for developing diabetes: 5.7-6.4% Diagnostic of diabetes: > or = 6.5% . Monitoring of Diabetes Age (y) Therapeutic Goal (%) Adults: >18 <7.0 Pediatrics: 13-18 <7.5 7-12 <8.0 0- 6 7.5-8.5 [place]. Diabetes Care 33(S1), Jul 2009. Performed By: #### U RINC #### [facility] [address] [place] [address] Hemoglobin A1Con 01-16-2022 Glucose [Mass/Vol] 105 mg/dL [facility] Work Phone: HbA1c (Bld) [Mass fraction] 5.3 % [facility] Work Phone: Comment on above: Diagnosis of Diabete s-Adults Non-Diabetic: < or = 5.6% Increased risk for developing diabetes: 5.7-6.4% Diagnostic of diabetes: > or = 6.5%. Monitoring of Diabetes Age (y) Therapeutic Goal (%) Adults: >18 <7.0 Pediatrics: 13-18 <7.5 7-12 <8.0 0- 6 7.5-8.5 [place] [employer]. Diabetes Care 33(S1), Jul 2009. IO UA (nonautomated w/o micr oscopy)on 01-16-2022 Protein (U) [Mass/Vol] Negative [facility] Work Phone: IO UA (nonautomated w/o microscopy) Normal (0.2-1.0 mg/dl) [facility]st Work Phone: IO UA (nonautomated w/o microscopy) (+)small - 15 Abnormal [facility] Work Phone: IO UA (nonautomated w/o microscopy) Positive Abnormal [facility] Work Phone: IO UA (nonautomated w/o microscopy) 6.0 1 [facility] Work Phone: IO UA (nonautomated w/o microscopy) Negative [facility] Work Phone: IO UA (nonautomated w/o microscopy) 1.025 1 [facility] Work Phone: IO UA (nonautomated w/o microscopy) [facility] Work Phone: IO UA (nonautomated w/o microscopy) [facility] Work Phone: LIPID PANEL (CORONARY RISK 2 )on 01-16-2022 Cholesterol [Mass/Vol] 219 mg/dL High 0 - 199 [facility] Comment on above: Result Comment: . AGE [...] dosing. Performed By: #### L IPID #### [address] [id number] Cholesterol in HDL [Mass/Vol] 50.0 mg/dL Normal [facility] Comment on above: Result Comment: . AGE VERY LOW LOW NORMAL HIGH 0-19 Y < 35 < 40 40-45 ---- 20-24 Y ---- < 40 >45 ---- >24 Y ---- < 40 40-60 >60 . Performed By: #### L IPID #### [address] [id number] Cholesterol in LDL [Mass/Vol] 147 mg/dL High 0 - 119 [facility] Comment on above: Result Comment: . NEAR BORD AGE DESIRABLE OPTIMAL HIGH HIGH VERY HIGH 0-19 Y 0 - 109 --- 110-129 >/= 130 ---- 20-24 Y 0 - 119 --- 120-159 >/= 160 ---- >24 Y 0 - 99 100-129 130-159 160-189 >/=190 . Performed By: #### L IPID #### [address] [id number] Cholesterol in VLDL [Mass/Vol] 22 mg/dL Normal 0 - 40 [facility] Comment on above: Performed By: #### L IPID #### [address] [id number] Cholesterol.total/Wanda sterol in HDL [Mass ratio] 4.4 {ratio} Normal [facility] Comment on above: Result Comment: REF VALUES DESIRABLE < 3.4 HIGH RISK > 5.0 Performed By: #### L IPID #### [address] [id number] Triglyceride [Mass/Vol] 109 mg/dL Normal 0 - 149 [facility] Comment on above: Result Comment: . [...] dosing. Performed By: #### L IPID #### [address] [id number] Laboratory - Chemistry and C hemistry - challengeon 01-16-2022 Albumin BCP dye [Mass/Vol] 4.2 g/dL 3.4 - 5.0 [facility] Work Phone: ALP [Catalytic activity/Vol] 64 U/L 33 - 110 [facility] Work Phone: ALT With P-5'-P [Catalytic activity/Vol] 12 U/L 7 - 45 [facility] Work Phone: Comment on above: Patients treated wit h Sulfasalazine may generate falsely decreased results for ALT. Anion gap [Moles/Vol] 12 mmol/L 10 - 20 [facility] Work Phone: AST With P-5'-P [Catalytic activity/Vol] 18 U/L 9 - 39 [facility] Work Phone: Bilirubin [Mass/Vol] 0.5 mg/dL 0.0 - 1.2 [facility] erst Work Phone: Calcium [Mass/Vol] 9.6 mg/dL 8.6 - 10.3 [facility] Work Phone: Chloride [Moles/Vol] 102 mmol/L 98 - 107 [facility] erst Work Phone: CO2 [Moles/Vol] 27 mmol/L 21 - 32 [facility] erst Work Phone: Creatinine [Mass/Vol] 0.66 mg/dL See Below [facility] erst Work Phone: Comment on above: Reference Range: 0.5 0 - 1.05 Glucose [Mass/Vol] 71 mg/dL below low threshold 74 - 99 [facility] Work Phone: Potassium [Moles/Vol] 4.1 mmol/L 3.5 - 5.3 [facility] Work Phone: Protein [Mass/Vol] 7.9 g/dL 6.4 - 8.2 [facility] Work Phone: Sodium [Moles/Vol] 137 mmol/L 136 - 145 [facility] Work Phone: Urea nitrogen [Mass/Vol] 13 mg/dL 6 - 23 [facility] Work Phone: Laboratory - Hematology and Cell countson 01-16-2022 RBC (Bld) [#/Vol] 5.26 {x10E12/L} above high threshold See Below [facility] [employer] Work Phone: Comment on above: Reference Range: 4.0 0 - 5.20 Lipid Panelon 01-16-2022 Cholesterol [Mass/Vol] 219 mg/dL above hig h threshold 0 - 199 [facility] Work Phone: Comment on above: . [...] dosing. Cholesterol in HDL [Mass/Vol] 50.0 mg/dL [facility] [employer] Work Phone: Comment on above: . AGE VERY LOW LOW N ORMAL HIGH 0-19 Y < 35 < 40 40-45 ---- 20-24 Y ---- < 40 >45 ---- >24 Y ---- < 40 40-60 >60. Cholesterol in LDL [Mass/Vol] 147 mg/dL above high threshold 0 - 119 [facility] Work Phone: Comment on above: . NEAR BORD AGE VALENCIA RABLE OPTIMAL HIGH HIGH VERY HIGH 0-19 Y 0 - 109 --- 110-129 >/= 130 ---- 20-24 Y 0 - 119 --- 120-159 >/= 160 ---- >24 Y 0 - 99 100-129 130-159 160-189 >/=190. Cholesterol.total/Wanda sterol in HDL [Mass ratio] 4.4 {ratio} [facility] [employer] Work Phone: Comment on above: REF VALUESDESIRABLE < 3.4HIGH RISK > 5.0 Triglyceride [Mass/Vol] 109 mg/dL 0 - 149 [facility] Work Phone: Comment on above: . AGE [...] Lipid Panel 22 mg/dL 0 - 40 [facility] Work Phone: No Panel Informationon 01-16 >90 >90 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 Normal [employer] T4 - Free Thyroxine, Serumon 01-16-2022 Free T4 [Mass/Vol] 0.88 ng/dL See Below -[facility] erst Work Phone: Comment on above: Reference Range: 0.6 1 - 1.12 Thyroxine Free testing is performed using different testing methodology at [facility] than at other [facility]. Direct result comparisons should only be made [...] THYROXINE,FREE 0.88 ng/dL Normal 0.61 - 1.12 [facility] Comment on above: Result Comment: Thyr oxine Free testing is performed using different testing methodology at [facility] than at other [facility]. Direct result comparisons should only be made [...] draw. Performed By: #### T 4FRE #### [address] [id number] TSHon 01-16-2022 TSH Qn 0.97 m[IU]/L Normal 0.44 - 3.98 [facility] Comment on above: Result Comment: TSH testing is performed using different testing methodology at [facility] than at other [facility]. Direct result comparisons should only be made within the same method. Performed By: #### T SH2 #### [address] [id number] TSH - Thyroid Stimulating Ho rmone, Serumon 01-16-2022 TSH Qn 0.97 m[IU]/L See Below [facility] erst Work Phone: Comment on above: Reference Range: 0.4 4 - 3.98 TSH testing is performed using different testing methodology at [facility] than at other [facility]. Direct result comparisons should only be made within the same method. Tobacco Screening.on 022 Fall risk assessment c) Not medically indicated [facility] Work Phone: Last menstrual period start date 08Jan2022 [facility] Work Phone: Tobacco use status [facility] b) No M [facility] erst Work Phone: URINALYSISon 01-16-2022 Appearance (U) Canceled Normal [facility] Comment on above: Order Comment: TEST URINALYSIS WAS CANCELLED, 01/16/2022 16:12 error/cf. Performed By: #### U A #### [address] [id number] ASCORBIC ACID Canceled Normal [facility] Comment on above: Order Comment: TEST URINALYSIS WAS CANCELLED, 01/16/2022 16:12 error/cf. Result Comment: Conc entrations > = 20 mg/dL of ascorbic acid can be expected to cause strong interference in the reactions testing for glucose, nitrite and blood. It is recommended to discontinue Vitamin C administration and retest in 10 hours. Performed By: #### U A #### [address] [id number] Bilirubin Ql (U) Canceled Normal [facility] Comment on above: Order Comment: TEST URINALYSIS WAS CANCELLED, 01/16/2022 16:12 error/cf. Performed By: #### U A #### [address] [id number] Color (U) Canceled Normal [facility] Comment on above: Order Comment: TEST URINALYSIS WAS CANCELLED, 01/16/2022 16:12 error/cf. Performed By: #### U A #### [address] [id number] Glucose Ql (U) Canceled Normal [facility] Comment on above: Order Comment: TEST URINALYSIS WAS CANCELLED, 01/16/2022 16:12 error/cf. Performed By: #### U A #### [address] [id number] Hemoglobin Ql (U) Canceled Normal [facility] Comment on above: Order Comment: TEST URINALYSIS WAS CANCELLED, 01/16/2022 16:12 error/cf. Performed By: #### U A #### [address] [id number] Ketones Ql (U) Canceled Normal [facility] Comment on above: Order Comment: TEST URINALYSIS WAS CANCELLED, 01/16/2022 16:12 error/cf. Performed By: #### U A #### [address] [id number] Leukocyte esterase Test strip Ql (U) Canceled Normal [facility] Comment on above: Order Comment: TEST URINALYSIS WAS CANCELLED, 01/16/2022 16:12 error/cf. Performed By: #### U A #### [address] [id number] Nitrite Ql (U) Canceled Normal [facility] Comment on above: Order Comment: TEST URINALYSIS WAS CANCELLED, 01/16/2022 16:12 error/cf. Performed By: #### U A #### [address] [id number] pH Canceled Normal [facility] Comment on above: Order Comment: TEST URINALYSIS WAS CANCELLED, 01/16/2022 16:12 error/cf. Performed By: #### U A #### [address] [id number] Protein Ql (U) Canceled Normal [facility] Comment on above: Order Comment: TEST URINALYSIS WAS CANCELLED, 01/16/2022 16:12 error/cf. Performed By: #### U A #### [address] [id number] Specific gravity (U) [Rel density] Canceled Normal [facility] Comment on above: Order Comment: TEST URINALYSIS WAS CANCELLED, 01/16/2022 16:12 error/cf. Performed By: #### U A #### [address], [place] [phone] UROBILINOGEN Canceled Normal [facility] Comment on above: Order Comment: TEST URINALYSIS WAS CANCELLED, 01/16/2022 16:12 error/cf. Performed By: #### U A #### [address], [place] [id number] URINE CULTURE,BACTERIALon URINE CULTURE,BACTERIAL PATIENT: SCARLET DURAND LOCATION: [address]#: [id number] : [birth year] AGE: SEX: F ORDERED BY: [...] DOSE DEPENDENT NS=NONSUSCEPTIBLE X=REPORTED IN ERROR Normal [facility] Comment on above: Performed By: #### U [facility] #### [facility] [address] [place] [address] Urinalysison 01-16-2022 Appearance (U) Canceled -[facility] erst Work Phone: Color (U) Canceled [facility] Work Phone: Glucose Ql (U) Canceled -[facility] erst Work Phone: Ketones Ql (U) Canceled -[facility] er[facility] Work Phone: Leukocyte esterase Test strip Ql (U) Canceled [facility] Work Phone: Protein (U) [Mass/Vol] Canceled [facility] erst Work Phone: RBC (U) [#/Vol] Canceled -[facility] erst Work Phone: Specific gravity (U) [Rel density] Canceled [facility] Work Phone: Urinalysis Canceled [facility] Work Phone: Comment on above: Concentrations > = 2 0 mg/dL of ascorbic acid can be expected to cause strong interference in the reactions testing for glucose, nitrite and blood. It is recommended to discontinue Vitamin C administration and retest in 10 hours. VITAMIN B12on 01-16-2022 Cobalamin (Vitamin B12) [Mass/Vol] 224 pg/mL Normal 211 - 911 [facility] Comment on above: Performed By: #### V TB12 #### [address] [id number] VITAMIN D, 25-HYDROXYon 12-27 VITAMIN D, 25-HYDROXY 19 ng/mL Abnormal [facility] Comment on above: Result Comment: . DEFICIENCY: < 20 NG/ML INSUFFICIENCY: 20-29 NG/ML SUFFICIENCY: 30-100 NG/ML THIS ASSAY ACCURATELY QUANTIFIES THE SUM OF VITAMIN D3, 25-HYDROXY AND VIT D2,25-HYDROXY. Performed By: #### V TDOH #### [address] [id number] Vitamin B12, Serumon 022 Cobalamin (Vitamin B12) [Mass/Vol] 224 pg/mL 211 - 911 [facility] Work Phone: Vitamin D 25-Hydroxyon 01-16 25-hydroxyvitamin D3 [Mass/Vol] 19 ng/mL Abnormal [facility] Work Phone: Comment on above: .DEFICIENCY: < 20 NG /MLINSUFFICIENCY: 20-29 NG/MLSUFFICIENCY: 30-100 NG/MLTHIS ASSAY ACCURATELY QUANTIFIES THE SUM OFVITAMIN D3, 25-HYDROXY AND VIT D2,25-HYDROXY. HPV DNA Typingon 01-04-2022 HPV Type 16 Not detected Normal Not Detect [facility] HPV Type 18 Not detected Normal Not Detect [facility] HPVOH (Other types) Detected Abnormal Not Detect [facility] Comment on above: Result Comment: *Inc ludes 31,33,35,39,45,51,52,56,58,59,66,68 genotypes HPV DNA Typingon 12-30-2021 HPV Comment See below Normal [facility] Comment on above: Result Comment: [...] 12-30-2021 Trichomonas Vaginalis Screen (EIA) Negative Normal [facility] Comment on above: Performed By: #### E TRIC #### [facility] [address] [place] [address] Wet Prep-Medical Purposes On martinez 12-30-2021 Wet Prep Clue Cellls None Seen Normal [facility] Comment on above: Performed By: #### W ETPR #### [facility] [address] [place] [address] Wet Prep Trichomonas See EIA Normal [facility] Comment on above: Performed By: #### W ETPR #### [facility] [address] [place] [address] Wet Prep Yeast None Seen [facility] Comment on above: Performed By: #### W ETPR #### [facility] [address] [place] [address] Gynecological Specimen (Cyto logy)on 12-29-2021 Gynecological Specimen (Cytology) [facility] [address] [place] [address] FINAL CYTOLOGY PAP REPORT Patient Name: SCARLET DURAND Accession No: [id number] Age Sex: 2000 22 Y / F Location: LCVR3 Account No: [id number] Collected: 12/29/2021 Med Rec No: [id number] Received: 01/01/2022 Attend Phys: EDUARD NGUYEN Completed: 01/09/2022 Perform Phys: EDUARD NGUYEN INTERPRETATION/RESULTS: Atypical squamous cells of undetermined significance. GENERAL CATEGORIZATION: Epithelial Cell Abnormality SPECIMEN ADEQUACY: Satisfactory for Evaluation. Endocervical cells/transformation zone component present. Specimen: THINPREP LIQUID BASE IMAGED DIAGNOSTIC History: Source: Thin Prep Site: Cervical History: Previous abnormal smear? No History of CA? No Lab Order#: [id number] Test Name Collected D AND T Result [...] (PCR) and nucleic acid hybridization. CPT: Technical: 59224 X1 Professional: 40547 X1 Screened by: VELIA HERNANDEZ(ASCP) ROLY ROBB [...] processed and screened using a Thin Prep Public Relations Intern at [facility] [address] [place] [address] All abnormal gynecologic interpretation is performed at [facility], unless otherwise noted in the report. 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 YELLOW Normal YELLOW [facility] Comment on above: Performed By: #### U ACSANGELA UMICRO #### [facility] [address] [place] [address] Kumar Mago Glucose Ql (U) Negative Normal NEGATIVE [facility] Comment on above: Performed By: #### U ACSANGELA UMICRO #### [facility] [address] [place] [address] Kumar Mago Hemoglobin Ql (U) Negative Normal NEGATIVE [facility] Comment on above: Performed By: #### U ACSANGELA UMICRO #### [facility] [address] [place] [address] Kumar Mago Ketones Ql (U) 15 mg/dl Abnormal NEGATIVE [facility] Comment on above: Performed By: #### U ACSIND, UMICRO #### [facility] [address] [place] [address] Kumar Mago LEUKOCYTES SMALL Abnormal NEGATIVE [facility] Comment on above: Performed By: #### U ERYN BARRY #### [facility] [address] [place] [address] Kumar Mago Nitrite Ql (U) Negative Normal NEGATIVE [facility] Comment on above: Performed By: #### U ERYN BARRY #### [facility] [address] [place] [address] Kumar Mago pH (U) 7.0 [pH] Normal 5-9 [facility] Comment on above: Performed By: #### U ERYN BARRY #### [facility] [address] [place] [address] Kumarkendra Mercedes SPEC GRAVITY 1.020 Normal 1.005-<=1.0 25 [facility] Comment on above: Performed By: #### U ERYN BARRY #### [facility] [address] [place] [address] Kumar Mago UA PROTEIN Negative Normal NEGATIVE/ TRACE [facility] Comment on above: Performed By: #### U ERYN BARRY #### [facility] [address] [place] [address] Kumarkendra Mercedes UR MICRO IND INDICATED Normal [facility] Comment on above: Performed By: #### U ERYN BARRY #### [facility] [address] [place] [address] Kumarkendra Mercedes Urobilinogen Qn (U) 0.2 {Lei'U}/dL Normal 0.2 - 1. 0 [facility] Comment on above: Performed By: #### U ERYN BARRY #### [facility] [address] [place] [address] Kumar Mago URINE MICROSCOPIC ONLYon BACTERIA LARGE Abnormal NONE SEEN [facility] Comment on above: Performed By: #### U ERYN BARRY #### [facility] [address] [place] [address] Kumar Mago Bacteria identified Cx Nom (U) INDICATED Normal [facility] Comment on above: Performed By: #### U ACSANGELA, UMICRO #### [facility] [address] [id number] Kumar Mago CAST NONE SEEN Normal NONE SEEN [facility] Comment on above: Performed By: #### U ACSANGELA, UMICRO #### [facility] [address] [id number] Kumar Mago Crystals LM Nom (Urine sed) NONE SEEN Normal NONE SEEN [facility] Comment on above: Performed By: #### U ACSANGELA, UMICRO #### [facility] [address] [place] [address] Kumar Mago Epithelial cells LM Ql (Urine sed) MANY Abnormal NONE SEEN /RARE [facility] Comment on above: Performed By: #### U ACSANGELA, UMICRO #### [facility] [address] [place] [address] Kumar Mago MUCOUS NONE SEEN Normal NONE SEEN [facility] Comment on above: Performed By: #### U ACSANGELA, UMICRO #### [facility] [address] [place] [address] Kumar Mago RBC 2-5 Abnormal 0-2 [facility] Comment on above: Performed By: #### U ACSANGELA, UMICRO #### [facility] [address] [place] [address] Kumar Mago WBC 20-50 Abnormal NONE SEEN [facility] Comment on above: Performed By: #### U ACSANGELA, UMICRO #### [facility] [address] [place], [place] [address] Kumar Mago Progress Noteon 08-08-2020 Animal Caregiver Authentication Interface Message Text Maternal Medicine Consult [...] Vag-Spont GAUDENCIO Past Medical History: Diagnosis Date #901502 Anxiety Bipolar depression Bipolar disorder Nervous breakdown [...] No Muscular Dystrophy No Cystic Fibrosis No Aracelis's Chorea No Intellectual Disability/Autism Yes Daughter with [...] Transabdominal cervical length appears normal. Assessment/Plan: Scarlet Villalobos is a 20 y.o. at 17w4d with: [...] which was can try to schedule in [place] for them. She has had no mental [...] was spent counseling and coordinating care. Normal [facility] Microscopic Urinalysison Bacteria, UA FEW Abnormal Negative /HPF [place] Epithelial Cells, UA 20-50 [place] RBC (U) [#/Vol] 5-10 Abnormal [place] WBC, UA >100 High [place] Otheron 01-04-2020 Interpretation and review of laboratory results Abnormal [place] Urine Reflex to Cultureon Bilirubin Urine Negative Negative [facility], [place] Blood, Urine LARGE Abnormal Negative [facility], [place] Clarity, UA CLOUDY Abnormal Clear [place] Color, UA Yellow Straw/Yello w [place] Glucose, Ur Negative Negative mg/dL [place] Ketones Ql (U) Negative Negative mg/dL [place] Leukocyte esterase Test strip Ql (U) SMALL Abnormal Negative [place] Nitrite, Urine Negative Negative [facility], [place] pH, UA 5.0 [place] Protein (U) [Mass/Vol] TRACE Abnormal Negat ben mg/dL [place] Specific [place], UA 1.031 [place] Urine Reflex to Culture Yes M [place] Urobilinogen, Urine 0.2 <2.0 E.U./dL [place] Wet Prep, Genitalon 01-04-20 20 Clue Cells, Wet Prep None Seen [place] Interpretation and review of laboratory results Abnormal [place] Trichomonas Prep 4+ Abnormal [place] Yeast, Wet Prep None Seen [place] Microscopic Urinalysison Bacteria, UA FEW Abnormal Negative /HPF [place] Epithelial Cells, UA 20-50 [place] Hyaline Casts, UA 5-10 [place] RBC (U) [#/Vol] 5-10 Abnormal [place] Trichomonas, UA Present Abnormal None Seen /HPF [place] WBC, UA >100 High [place] Otheron 12-30-2019 Interpretation and review of laboratory results Abnormal [place] POC Urine Qualon 0 12-30-2019 Beta HCG ( test) Ql (U) [id number] [place] Beta HCG ( test) Ql (U) Negative Negative [place] Negative QC Pass/Fail Pass [place] Positive QC Pass/Fail Pass [place] Urine Reflex to Cultureon Bilirubin Urine Negative Negative [place] Blood, Urine MODERATE Abnormal Negative [place] Clarity, UA TURBID Abnormal Clear [place] Color, UA Yellow Straw/Yello w [place] Glucose, Ur Negative Negative mg/dL [place] Ketones Ql (U) Negative Negative mg/dL [place] Leukocyte esterase Test strip Ql (U) LARGE Abnormal Negative [place] Nitrite, Urine Negative Negative [place] pH, UA 6.5 [place] Protein (U) [Mass/Vol] TRACE Abnormal Negat ben mg/dL [place] Specific [place], UA 1.022 [place] Urine Reflex to Culture Yes M [place] Urobilinogen, Urine 1.0 <2.0 E.U./dL [place] Microscopic Urinalysison Bacteria, UA Few /HPF [place] Epi Cells 10-20 /HPF [place] Interpretation and review of laboratory results Abnormal [place] RBC (U) [#/Vol] 3-5 Abnormal [place] WBC, UA 0-2 [place] Urine Drug Screen, Comprehen siveon 03-09-2019 Amphetamine Screen, Urine Negative Negative <500 ng/mL [place] Comment on above: Effective: 02/09/18 Methodology and/or Reference Range-Cutoff has changed. Barbiturate Screen, Ur Negative Negat ben <200 ng/mL [place] Comment on above: Effective: 02/09/18 Methodology and/or Reference Range-Cutoff has changed. Benzodiazepine Screen, Urine Negative Negative <150 ng/mL [place] Comment on above: Effective: 02/09/18 Methodology and/or Reference Range-Cutoff has changed. Cannabinoid Scrn, Ur Negative Negativ e <50 ng/mL [place] Cocaine Metabolite Screen, Urine Negative Negative <150 ng/mL [place] Comment on above: Effective: 02/09/18 Methodology and/or Reference Range-Cutoff has changed. Drug Screen Comment: see below [place] Comment on above: This method is a scr eening test to detect only these drug classes as part of a medical workup. Confirmatory testing by another method should be ordered if clinically indicated. Opiate Scrn, Ur Negative Negative <100 ng/mL [place] Comment on above: Effective: 02/09/18 Methodology and/or Reference Range-Cutoff has changed. PCP Screen, Urine Negative Negative <25 ng/mL [place] Tricyclic Negative Negative <300 ng/mL [place] Comment on above: Effective: 02/09/18 Methodology and/or Reference Range-Cutoff has changed. CBC Auto Differentialon 02-25 Anisocytosis Ql (Bld) 1+ [place] Bands Relative 15 % High 5 - 11 % [place] Basophils (Bld) [#/Vol] 0.1 10*3/uL 0 - 0.2 K/uL [place] Comment on above: Corrected result; pr eviously reported as 0.0 on 03/08/2019 at 23:01 by JOSE ALEJANDRO Basophils/100 WBC (Bld) 1.0 % M [place] Comment on above: Corrected result; pr eviously reported as 0.3 on 03/08/2019 at 23:01 by JOSE ALEJANDRO Eosinophils (Bld) [#/Vol] 0.3 10*3/uL 0 - 0.7 K/uL [place] Comment on above: Corrected result; pr eviously reported as 0.1 on 03/08/2019 at 23:01 by JOSE ALEJANDRO Eosinophils/100 WBC (Bld) 3 % [place] Comment on above: Corrected result; pr eviously reported as 1.3 on 03/08/2019 at 23:01 by JOSE ALEJANDRO Erythrocyte distribution width (RBC) [Ratio] 16.6 % High 11.5 - 14.5 % [place] Hematocrit (Bld) [Volume fraction] 35.6 % Low 37 - 47 % [place] Hemoglobin (Bld) [Mass/Vol] 11.8 g/dL Low 12 - 16 g/dL [place] Interpretation and review of laboratory results Abnormal [place] Lymphocytes (Bld) [#/Vol] 2.9 10*3/uL 1 - 4.8 K/uL [place] Comment on above: Corrected result; pr eviously reported as 3.0 on 03/08/2019 at 23:01 by JOSE ALEJANDRO Lymphocytes/100 WBC (Bld) 26.0 % [place] Comment on above: Corrected result; pr eviously reported as 27.5 on 03/08/2019 at 23:01 by JOSE ALEJANDRO MCH (RBC) [Entitic mass] 24.5 pg Low 27 - 31.3 pg [place] MCHC (RBC) [Mass/Vol] 33.2 % 33 - 37 % [place] MCV (RBC) [Entitic vol] 73.8 fL Low 82 - 100 fL [place] Microcytes 1+ [place] Monocytes (Bld) [#/Vol] 0.6 10*3/uL 0.2 - 0.8 K/uL [place] Comment on above: Corrected result; pr eviously reported as 0.5 on 03/08/2019 at 23:01 by JOSE ALEJANDRO Monocytes/100 WBC (Bld) 4.8 % M [place] Comment on above: Corrected result; pr eviously reported as 5.0 on 03/08/2019 at 23:01 by JOSE ALEJANDRO Neutrophils (Bld) [#/Vol] 7.3 10*3/uL High 1.4 - 6.5 K/uL [place] Comment on above: Corrected result; pr eviously reported as 7.2 on 03/08/2019 at 23:01 by JOSE ALEJANDRO Neutrophils/100 WBC (Bld) 51.0 % [place] Comment on above: Corrected result; pr eviously reported as 65.9 on 03/08/2019 at 23:01 by JOSE ALEJANDRO PLATELET SLIDE REVIEW Normal [place] Platelets (Bld) [#/Vol] 368 10*3/uL 130 - 400 K/uL [place] Poikilocytes 1+ [place] RBC (Bld) [#/Vol] 4.83 10*6/uL [place] WBC (Bld) [#/Vol] 11.0 10*3/uL High 4.8 - 10.8 K/uL [place] Comprehensive Metabolic Pane evan 03-08-2019 Albumin [Mass/Vol] 3.8 g/dL 3.5 - 4.6 g/dL [place] ALP [Catalytic activity/Vol] 65 U/L 40 - 130 U/L [place] ALT [Catalytic activity/Vol] 9 U/L 0 - 33 U/L [place] Anion gap [Moles/Vol] 13 mmol/L [place] AST [Catalytic activity/Vol] 10 U/L 0 - 35 U/L [place] Bilirubin Ql (U) <0.2 0.2 - 0.7 mg/dL [place] Calcium [Mass/Vol] 8.8 mg/dL 8.5 - 9.9 mg/dL [place] Chloride [Moles/Vol] 104 mmol/L [place] CO2 [Moles/Vol] 26 mmol/L [place] Creatinine [Mass/Vol] 0.64 mg/dL 0.5 - 0.9 mg/dL [place] GFR >60.0 >60 [place] Comment on above: >60 mL/min/1.73m2 EG FR, calc. for ages 18 and older using the MDRD formula (not corrected for weight), is valid for stable renal function. GFR Non- >60.0 >60 [place] Comment on above: >60 mL/min/1.73m2 EG FR, calc. for ages 18 and older using the MDRD formula (not corrected for weight), is valid for stable renal function. Globulin (S) [Mass/Vol] 3.8 g/dL High 2.3 - 3.5 g/dL [place] Glucose [Mass/Vol] 87 mg/dL 70 - 99 mg/dL [place] Interpretation and review of laboratory results Abnormal [place] Potassium [Moles/Vol] 3.5 mmol/L [place] Protein [Mass/Vol] 7.6 g/dL 6.3 - 8 g/dL [place] Sodium [Moles/Vol] 143 mmol/L [place] Urea nitrogen [Mass/Vol] 8 mg/dL 6 - 20 mg/dL [place] Lactic Acid, Plasmaon 2018 Lactate [Moles/Vol] 0.7 mmol/L 0.5 - 2. 2 mmol/L [place] POCT Blood Stool Occulton Hemoglobin.gastrointest inal Ql (Stl) Negative [place] Interpretation and review of laboratory results Normal [place] QC OK? pass [place] POCT Creatinineon 03-08-2019 Creatinine [Mass/Vol] 0.6 mg/dL [place] Interpretation and review of laboratory results Normal [place] Urinalysis Reflex to Culture on 03-08-2019 Bilirubin Urine Negative Negative [place] Blood, Urine LARGE Abnormal Negative [place] Clarity, UA CLOUDY Abnormal Clear [place] Color, UA Yellow Straw/Yello w [place] Glucose, Ur Negative Negative mg/dL [place] Interpretation and review of laboratory results Abnormal [place] Ketones Ql (U) Negative Negative mg/dL [place] Leukocyte esterase Test strip Ql (U) Negative Negative [place] Nitrite, Urine Negative Negative [place] pH, UA 5.5 [place] Protein (U) [Mass/Vol] TRACE Abnormal Negat ben mg/dL [place] Specific [place], UA 1.023 [place] Urine Reflex to Culture YES M [place] Urobilinogen, Urine 1.0 <2.0 E.U./dL [place] Basic Metabolic Panelon 10-0 Anion gap 3 molar conc 16 mmol/L Critically high 7-13 [facility] Calcium mass conc 9.1 mg/dL Normal 8.6-10.2 [facility] Chloride molar conc 105 mmol/L Normal 98-107 [facility] CO2 molar conc 24 mmol/L Normal 22-29 [facility] Creatinine mass conc 0.65 mg/dL Normal 0.50-0.90 [facility] GFR/1.73 sq M predicted among blacks MDRD vol rate/area (S/P/Bld) mL/min/{1.73_m2} Normal >60 [facility] Comment on above: Result Comment: >60 mL/min/1.73m2 EGFR, calc. for ages 18 and older using theMDRD formula (not corrected for weight), is valid for stablerenal function. GFR/1.73 sq M.predicted MDRD vol rate/area mL/min/{1.73_m2} Normal >60 [facility] Comment on above: Result Comment: >60 mL/min/1.73m2 EGFR, calc. for ages 18 and older using theMDRD formula (not corrected for weight), is valid for stablerenal function. Glucose mass conc 99 mg/dL Normal 74-109 [facility] Potassium molar conc 4.1 mmol/L Normal 3.5-5.1 [facility] Sodium molar conc 145 mmol/L Critically high 132-144 [facility] Urea nitrogen mass conc 11 mg/dL Normal 6-20 M [facility] CBC With Platelet and Differ entialon 05-05-2018 Basophils Auto #/vol (Bld) 0.0 10*3/uL Normal 0.0-0.2 [facility] Basophils/100 WBC Auto (Bld) 0.5 % Normal [facility] Eosinophils Auto #/vol (Bld) 0.1 10*3/uL Normal 0.0-0.7 [facility] Eosinophils/100 WBC Auto (Bld) 0.9 % Normal [facility] Erythrocyte distribution width Auto Ratio (RBC) 15.2 % Critically high 11.5-14.5 [facility] Hematocrit Auto Volume Fraction (Bld) 37.0 % Normal 37.0-47.0 [facility] Hemoglobin mass conc (Bld) 12.4 g/dL Normal 12.0-16.0 [facility] Hypochromia PRESENT Normal [facility] Lymphocytes Auto #/vol (Bld) 2.9 10*3/uL Normal 1.0-4.8 [facility] Lymphocytes/100 WBC Auto (Bld) 33.4 % Normal [facility] MCH Auto Entitic mass (RBC) 25.9 pg Low 27.0-31.3 [facility] MCHC Auto mass conc (RBC) 33.5 % Normal 33.0-37.0 [facility] MCV Auto Entitic volume (RBC) 77.4 fL Low 82.0-100.0 [facility] Monocytes Auto #/vol (Bld) 0.6 10*3/uL Normal 0.2-0.8 [facility] Monocytes/100 WBC Auto (Bld) 6.6 % Normal [facility] Neutrophils Auto #/vol (Bld) 5.0 10*3/uL Normal 1.4-6.5 [facility] Neutrophils/100 WBC Auto (Bld) 58.6 % Normal [facility] Platelets Auto #/vol (Bld) 326 10*3/uL Normal 130-400 [facility] RBC Auto #/vol (Bld) 4.78 10*6/uL Normal 4.20-5.40 [facility] WBC Auto #/vol (Bld) 8.6 10*3/uL Normal 4.5-11.0 [facility] [place] LUMBAR SPINE WO CONTRASTo n 05-05-2018 [...] Lemon, DOSigned by:Lesia Lemon, DO05/05/18Final result Normal [facility] Sedimentation Rateon 018 Sedimentation Rate 22 mm Critically high 0-20 M [facility] UR HCG Qualitativeon 018 HCG.beta subunit ( test) Ql (U) Negative Normal Detects [facility] ED Provider Noteon 8 HIM IP Note OR Animal Caregiver Normal [facility] Cult,Urineon 04-30-2017 Cult,Urine Specimen Description .URINE, MIDSTREAM Performed at [facility] [address] [place] [address] Special Requests NOT REPORTEDCulture NO SIGNIFICANT GROWTH Performed at [address] [id number] Report Status FINAL 04/30/2017 [facility] Comment on above: Performed By: #### U RC ####[address] [address] [facility] [facility] [place] [address] ED Provider Noteon 7 HIM IP Note OR Animal Caregiver Normal [facility] HCG, ,Urineon 04-29 HCG.beta subunit ( test) Ql (U) Negative Normal NEG [facility] Comment on above: Result Comment: Perf ormed at [facility] [address] [facility] [place] [address] Performed By: #### U HCG, UA, UMICAO ####[place] [id number] [facility] [place] [address] Urinalysis, Routineon 2016 Acetaminophen mass conc Negative Normal NEG M [facility] Comment on above: Performed By: #### U HCG, UA, UMICAO ####[address] [place] [address] Bilirubin (direct) Negative Normal NEG [facility] Comment on above: Performed By: #### U HCG, UA, UMICAO ####[address] [place] [address] Comment Normal [facility] Comment on above: Result Comment: Perf ormed at [facility] [address] [facility] [place] [address] Performed By: #### U HCG, UA, UMICAO ####[place] [id number] [facility] [id number] Hemoglobin mass conc (Bld) TRACE Abnormal NEG [facility] Comment on above: Performed By: #### U HCG, UA, UMICAO ####[place] [id number] [facility] [place] [address] Nitrite,Ur Negative Normal NEG [facility] Comment on above: Performed By: #### U HCG, UA, UMICAO ####[address] [place] [address] Turbidity HAZY Abnormal CLEAR [facility] Comment on above: Performed By: #### U HCG, UA, UMICAO ####[place] [id number] [facility] [place] [address] Urine, color YELLOW Normal YEL [facility] Comment on above: Performed By: #### U HCG, UA, UMICAO ####[place] [id number] [facility] [place] [address] Urine, glucose presence Negative Normal NEG [facility] Comment on above: Performed By: #### U HCG, UA, UMICAO ####[address] [place] [address] Urine, leukocyte esterase presence 2+ Abnormal NEG [facility] Comment on above: Performed By: #### U HCG, UA, UMICAO ####[address] [place] [address] Urine, pH 5.0 [pH] Normal 5.0-8.0 [facility] Comment on above: Performed By: #### U HCG, UA, UMICAO ####[address] [place] [address] Urine, protein presence Negative Normal NEG [facility] Comment on above: Performed By: #### U HCG, UA, UMICAO ####[address] [place] [address] Urine, specific gravity 1.015 Normal 1.005-1.030 [facility] Comment on above: Performed By: #### U HCG, UA, UMICAO ####[address] [id number] [facility] [place] [address] Urobilinogen,Ur Normal Normal NORM [facility] Comment on above: Performed By: #### U HCG, UA, UMICAO ####[facility] [place] [address] Urinalysis,Microon 7 ----- Normal [facility] Comment on above: Performed By: #### U HCG, UA, UMICAO ####[facility] [place] [address] Urine WBC's 2 TO 5 Normal 0 [facility] Comment on above: Performed By: #### U HCG, UA, UMICAO ####[facility] [facility] [address] [facility] [address] [place] [address] Urine, bacteria in sediment 2+ Abnormal NONE [facility] Comment on above: Result Comment: Perf ormed at [facility] [address] [place] [address] Performed By: #### U HCG, UA, UMICAO ####[place] [id number] [facility] [address] [place] [address] Urine, epithelial cells in sediment 5 TO 10 Normal [facility] Comment on above: Performed By: #### U HCG, UA, UMICAO ####[address] [place] [address] Urine, erythrocytes 0 TO 2 Normal 0-2 [facility] Comment on above: Performed By: #### U HCG, UA, UMICAO ####[place] [address] [facility] [address] [place] [address] Epithelial, Renal NOT REPORTED Normal 0 [facility] Comment on above: Performed By: #### U HCG, UA, UMICAO ####[place] [address] [facility] [address] [place] [address] Mucus Strands NOT REPORTED Normal NONE [facility] Comment on above: Performed By: #### U HCG, UA, UMICAO ####[place] [id number] [facility] [address] [phone] Other Observations NOT REPORTED Normal NREQ [facility] Comment on above: Performed By: #### U HCG, UA, UMICAO ####[facility] [facility] [place] [address] Trichomonas NOT REPORTED Normal NONE [facility] Comment on above: Performed By: #### U HCG, UA, UMICAO ####[facility] [facility] [address] [place] [address] Urine, amorphous sediment presence in sediment NOT REPORTED Normal NONE [facility] Comment on above: Performed By: #### U HCG, UA, UMICAO ####[place] [address] [facility] [place] [address] Urine, casts in sediment NOT REPORTED Normal [facility] Comment on above: Performed By: #### U HCG, UA, UMICAO ####[place] [address] [facility] [place] [address] Urine, crystals in sediment NOT REPORTED Normal NONE [facility] Comment on above: Performed By: #### U HCG, UA, UMICAO ####[place] [address] [facility] [place] [address] Urine, yeast presence in sediment NOT REPORTED Normal NONE [facility] Comment on above: Performed By: #### U HCG, UA, UMICAO ####[place] [id number] [facility] [place] [address] Group A Strep DNAon 04-03-20 17 Group A Strep DNA Specimen Description .THROAT SWAB Performed at [facility] [address] [facility] [place] [address] Special Requests NOT REPORTEDDirect Exam Negative: Specimen negative for Streptococcus pyogenes by DNA amplification. 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 A negative Rapid Group A Strep Screen result does not rule out the possibility of Group A Streptococci in the specimen. A Group A strep DNA test will be performed. Performed at [facility] [address] [place] [address] ([phone] Report Status FINAL 04/01/2017 [facility] Comment on above: Performed By: #### S GPA ####[place] [address] [place] [address] Vital Signs Date Time Vital Sign Value Performing Clinician Facility 10-30-2024 16:49-0400 Body temperature 98.42 [degF] Blake Haye [facility] 10-30-2024 16:49-0400 Diastolic blood pressure 86 mm[Hg] lBake Haye [facility] 10-30-2024 16:49-0400 Heart rate 86 /min Blake Rivera [facility] 10-30-2024 16:49-0400 Respiratory rate 20 /min Blake Haye [facility] 10-30-2024 16:49-0400 SaO2% (BldA) [Mass fraction] 99 % Blake Haye [facility] 10-30-2024 16:49-0400 Systolic blood pressure 128 mm[Hg] Blake Haye [facility] 10-08-2024 21:17-0400 Body temperature 97.7 [degF] Eric Darrell [facility] 10-08-2024 21:17-0400 Diastolic blood pressure 78 mm[Hg] Eric Darrell [facility] 10-08-2024 21:17-0400 Heart rate 105 /min Eric Darrell [facility] 10-08-2024 21:17-0400 Respiratory rate 17 /min Eric Darrell [facility] 10-08-2024 21:17-0400 SaO2% (BldA) [Mass fraction] 100 % Eric Darrell [facility] 10-08-2024 21:17-0400 Systolic blood pressure 131 mm[Hg] Eric Darrell [facility] 07-30-2024 08:03-0500 Body height 165.1 cm Familia Putnam DPM FACFAS Work Phone: [facility] 07-30-2024 08:03-0500 Body mass index (BMI) [Ratio] 46.59 kg/m2 Familia Mcdanielce DPM FACFAS Work Phone: [facility] 07-30-2024 08:03-0500 Body weight 127.01 kg Familia Putnam DPM FACFAS Work Phone: [facility] 07-30-2024 08:03-0500 Diastolic blood pressure 77 mm[Hg] Familia Putnam DPM FACFAS Work Phone: [facility] 07-30-2024 08:03-0500 Heart rate 72 /min Familia Mcdanielce DPM FACFAS Work Phone: [facility] 07-30-2024 08:03-0500 Systolic blood pressure 129 mm[Hg] Familia Putnam DPM FACFAS Work Phone: [facility] 07-02-2024 07:55-0500 Body height 165.1 cm Familia Putnam DPM FACFAS Work Phone: [facility] 07-02-2024 07:55-0500 Body mass index (BMI) [Ratio] 46.59 kg/m2 Familia Dolce DPM FACFAS Work Phone: [facility] 07-02-2024 07:55-0500 Body weight 127.01 kg Familia Dolce DPM FACFAS Work Phone: [facility] 07-02-2024 07:55-0500 Diastolic blood pressure 75 mm[Hg] Familia Dolce DPM FACFAS Work Phone: [facility] 07-02-2024 07:55-0500 Heart rate 74 /min Familia Dolce DPM FACFAS Work Phone: [facility] 07-02-2024 07:55-0500 Systolic blood pressure 128 mm[Hg] Familia Dolce DPM FACFAS Work Phone: [facility] 06-02-2024 12:57-0500 Body height 165.1 cm Familia Dolce DPM FACFAS Work Phone: [facility] 06-02-2024 12:57-0500 Body mass index (BMI) [Ratio] 46.59 kg/m2 Familia Dolce DPM FACFAS Work Phone: [facility] 06-02-2024 12:57-0500 Body weight 127.01 kg Familia Dolce DPM FACFAS Work Phone: [facility] 06-02-2024 12:57-0500 Diastolic blood pressure 77 mm[Hg] Familia Dolce DPM FACFAS Work Phone: [facility] 06-02-2024 12:57-0500 Heart rate 75 /min Familia Dolce DPM FACFAS Work Phone: [facility] 06-02-2024 12:57-0500 Systolic blood pressure 125 mm[Hg] Familia Dolce DPM FACFAS Work Phone: [facility] 05-30-2024 14:22-0500 Body temperature 98.42 [degF] [facility] 05-30-2024 14:22-0500 Diastolic blood pressure 91 mm[Hg] [facility] 05-30-2024 14:22-0500 Heart rate 94 /min [facility] 05-30-2024 14:22-0500 Respiratory rate 16 /min [facility] 05-30-2024 14:22-0500 SaO2% (BldA) [Mass fraction] 98 % [facility] 05-30-2024 14:22-0500 Systolic blood pressure 126 mm[Hg] [facility] 05-19-2024 13:53-0400 Body height 165.1 cm Familia Putnam DPM FACFAS Work Phone: [facility] 05-19-2024 13:53-0400 Body mass index (BMI) [Ratio] 46.59 kg/m2 Familia Putnam DPM FACFAS Work Phone: [facility] 05-19-2024 13:53-0400 Body weight 127.01 kg Familia Putnam DPM FACFAS Work Phone: [facility] 05-19-2024 13:53-0400 Diastolic blood pressure 72 mm[Hg] Familia Putnam DPM FACFAS Work Phone: [facility] 05-19-2024 13:53-0400 Heart rate 73 /min Familia Putnam DPM FACFAS Work Phone: [facility] 05-19-2024 13:53-0400 Systolic blood pressure 124 mm[Hg] Familia Putnam DPM FACFAS Work Phone: [facility] 05-17-2024 08:40-0400 Body temperature 98.24 [degF] Bi Galeana [facility] 05-17-2024 08:40-0400 Diastolic blood pressure 95 mm[Hg] Bi Galeana [facility] 05-17-2024 08:40-0400 Heart rate 79 /min Bi Galeana [facility] 05-17-2024 08:40-0400 Respiratory rate 18 /min Bi Kervin [facility] 05-17-2024 08:40-0400 SaO2% (BldA) [Mass fraction] 95 % Bi Kervin [facility] 05-17-2024 08:40-0400 Systolic blood pressure 153 mm[Hg] Bi Kervin [facility] 05-09-2024 14:19-0400 Body temperature 98.78 [degF] Bi Kervin [facility] 05-09-2024 14:19-0400 Diastolic blood pressure 85 mm[Hg] Bi Kervin [facility] 05-09-2024 14:19-0400 Heart rate 94 /min Biruth ann Galeana [facility] 05-09-2024 14:19-0400 Respiratory rate 16 /min Bi Galeana [facility] 05-09-2024 14:19-0400 SaO2% (BldA) [Mass fraction] 100 % Bi Kervin [facility] 05-09-2024 14:19-0400 Systolic blood pressure 131 mm[Hg] Bi Kervin [facility] 01-12-2024 23:57-0400 Body temperature 98.42 [degF] Kaylinn Dokken [facility] 01-12-2024 23:57-0400 Diastolic blood pressure 82 mm[Hg] Kaylinn Dokken [facility] 01-12-2024 23:57-0400 Heart rate 117 /min Kaylinn Dokken [facility] 01-12-2024 23:57-0400 Respiratory rate 16 /min Aleta Oliveira [facility] 01-12-2024 23:57-0400 SaO2% (BldA) [Mass fraction] 98 % Aleta Oliveira [facility] 01-12-2024 23:57-0400 Systolic blood pressure 122 mm[Hg] Dahianamitacos Oliveira [facility] 2024 23:19-0400 Body temperature 98.06 [degF] Bi Galeana [facility] 2024 23:19-0400 Diastolic blood pressure 71 mm[Hg] Bi Kervin [facility] 2024 23:19-0400 Heart rate 114 /min Biruth ann Galeana [facility] 2024 23:19-0400 Respiratory rate 20 /min Bi Galeana [facility] 2024 23:19-0400 SaO2% (BldA) [Mass fraction] 98 % Bi Galeana [facility] 2024 23:19-0400 Systolic blood pressure 116 mm[Hg] Bi Kervin [facility] 09-23-2023 10:21-0500 Diastolic blood pressure 75 mm[Hg] [facility] 09-23-2023 10:21-0500 Heart rate 116 /min [facility] 09-23-2023 10:21-0500 Mean blood pressure 89 mm[Hg] [facility] 09-23-2023 10:21-0500 SaO2% (BldA) [Mass fraction] 94 % [facility] 09-23-2023 10:21-0500 Systolic blood pressure 116 mm[Hg] [facility] 09-23-2023 08:53-0500 Body temperature 99.5 [degF] [facility] 09-23-2023 08:53-0500 Diastolic blood pressure 76 mm[Hg] [facility] 09-23-2023 08:53-0500 Heart rate 120 /min [facility] 09-23-2023 08:53-0500 Respiratory rate 20 /min [facility] 09-23-2023 08:53-0500 SaO2% (BldA) [Mass fraction] 98 % [facility] 09-23-2023 08:53-0500 Systolic blood pressure 124 mm[Hg] [facility] 08-22-2023 22:15-0500 Body temperature 98.96 [degF] Kaylinn Dokken [facility] 08-22-2023 22:15-0500 Diastolic blood pressure 83 mm[Hg] Kaylinn Dokken [facility] 08-22-2023 22:15-0500 Heart rate 98 /min Kaylinn Dokken [facility] 08-22-2023 22:15-0500 Respiratory rate 18 /min Kaylinn Dokken [facility] 08-22-2023 22:15-0500 SaO2% (BldA) [Mass fraction] 98 % Kaylinn Dokken [facility] 08-22-2023 22:15-0500 Systolic blood pressure 132 mm[Hg] Kaylinn Dokken [facility] 07-27-2023 21:06-0500 Body temperature 99.14 [degF] Kaylinn Dokken [facility] 07-27-2023 21:06-0500 Diastolic blood pressure 92 mm[Hg] Nevaehylinn Dokken [facility] 07-27-2023 21:06-0500 Heart rate 105 /min Dahianainn Dokken [facility] 07-27-2023 21:06-0500 Respiratory rate 16 /min Dahianainn Dokken [facility] 07-27-2023 21:06-0500 SaO2% (BldA) [Mass fraction] 100 % Dahianainn Dokken [facility] 07-27-2023 21:06-0500 Systolic blood pressure 144 mm[Hg] Dahianainn Dokken [facility] 07-25-2023 20:22-0500 Body temperature 97.88 [degF] Kosta Raul [facility] 07-25-2023 20:22-0500 Diastolic blood pressure 74 mm[Hg] Kosta Raul [facility] 07-25-2023 20:22-0500 Heart rate 91 /min Kosta Raul [facility] 07-25-2023 20:22-0500 Respiratory rate 17 /min Kosta Raul [facility] 07-25-2023 20:22-0500 SaO2% (BldA) [Mass fraction] 99 % Kosta Raul [facility] 07-25-2023 20:22-0500 Systolic blood pressure 113 mm[Hg] Kosta Raul [facility] 07-13-2023 17:51-0500 Diastolic blood pressure 93 mm[Hg] [facility] 07-13-2023 17:51-0500 Heart rate 121 /min [facility] 07-13-2023 17:51-0500 Respiratory rate 18 /min [facility] 07-13-2023 17:51-0500 SaO2% (BldA) [Mass fraction] 99 % [facility] 07-13-2023 17:51-0500 Systolic blood pressure 124 mm[Hg] [facility] 07-13-2023 16:32-0500 Diastolic blood pressure 89 mm[Hg] [facility] 07-13-2023 16:32-0500 Heart rate 105 /min [facility] 07-13-2023 16:32-0500 Respiratory rate 17 /min [facility] 07-13-2023 16:32-0500 SaO2% (BldA) [Mass fraction] 98 % [facility] 07-13-2023 16:32-0500 Systolic blood pressure 127 mm[Hg] [facility] 07-13-2023 15:29-0500 Body temperature 98.96 [degF] [facility] 07-13-2023 15:29-0500 Diastolic blood pressure 88 mm[Hg] [facility] 07-13-2023 15:29-0500 Heart rate 125 /min [facility] 07-13-2023 15:29-0500 Respiratory rate 18 /min [facility] 07-13-2023 15:29-0500 SaO2% (BldA) [Mass fraction] 98 % [facility] 07-13-2023 15:29-0500 Systolic blood pressure 120 mm[Hg] [facility] 04-24-2023 09:45-0400 Body temperature 99.86 [degF] [facility] 04-24-2023 09:45-0400 Diastolic blood pressure 97 mm[Hg] [facility] 04-24-2023 09:45-0400 Heart rate 121 /min [facility] 04-24-2023 09:45-0400 Respiratory rate 20 /min [facility] 04-24-2023 09:45-0400 SaO2% (BldA) [Mass fraction] 96 % [facility] 04-24-2023 09:45-0400 Systolic blood pressure 135 mm[Hg] [facility] 02-27-2023 10:53-0400 Body temperature 98.24 [degF] Bi Kervin [facility] 02-27-2023 10:53-0400 Diastolic blood pressure 87 mm[Hg] Bi Galeana [facility] 02-27-2023 10:53-0400 Heart rate 94 /min Bi Kervin [facility] 02-27-2023 10:53-0400 Respiratory rate 16 /min Bi Galeana [facility] 02-27-2023 10:53-0400 SaO2% (BldA) [Mass fraction] 99 % Bi Galeana [facility] 02-27-2023 10:53-0400 Systolic blood pressure 127 mm[Hg] Bi Galeana [facility] 01-14-2023 10:31-0400 Body temperature 98.42 [degF] Blake Rivera [facility] 01-14-2023 10:31-0400 Diastolic blood pressure 80 mm[Hg] Blake Rivera [facility] 01-14-2023 10:31-0400 Heart rate 94 /min Blake Rivera [facility] 01-14-2023 10:31-0400 Respiratory rate 18 /min Blake Rivera [facility] 01-14-2023 10:31-0400 SaO2% (BldA) [Mass fraction] 96 % Blake Rivera [facility] 01-14-2023 10:31-0400 Systolic blood pressure 114 mm[Hg] Blake Rivera [facility] 01-10-2023 09:13-0400 Body height 163.8 cm Orlando Pace MD Work Phone: [facility] 01-10-2023 09:13-0400 Body mass index (BMI) [Ratio] 44.99 kg/m2 Orlando Pace MD Work Phone: [facility] 01-10-2023 09:13-0400 Body temperature 97.9 [degF] Orlando Pace MD Work Phone: [facility] 01-10-2023 09:13-0400 Body weight 120.75 kg Orlando Pace MD Work Phone: [facility] 01-10-2023 09:13-0400 Diastolic blood pressure 80 mm[Hg] Orlando Pace MD Work Phone: [facility] 01-10-2023 09:13-0400 Heart rate 68 /min Orlando Pace MD Work Phone: [facility] 01-10-2023 09:13-0400 SaO2% (BldA) [Mass fraction] 98 % Orlando Pace MD Work Phone: [facility] 01-10-2023 09:13-0400 Systolic blood pressure 130 mm[Hg] Orlando Pace MD Work Phone: [facility] 12-04-2022 19:05-0400 Body temperature 98.42 [degF] [place] [facility] 12-04-2022 19:05-0400 Diastolic blood pressure 81 mm[Hg] [place] [facility] 12-04-2022 19:05-0400 Heart rate 75 /min [facility] 12-04-2022 19:05-0400 Respiratory rate 18 /min [facility] 12-04-2022 19:05-0400 SaO2% (BldA) [Mass fraction] 99 % [facility] 12-04-2022 19:05-0400 Systolic blood pressure 128 mm[Hg] [facility] 12-02-2022 04:35-0400 Diastolic blood pressure 74 mm[Hg] Eric Darrell [facility] 12-02-2022 04:35-0400 Heart rate 73 /min Eric Darrell [facility] 12-02-2022 04:35-0400 Respiratory rate 18 /min Eric Darrell [facility] 12-02-2022 04:35-0400 SaO2% (BldA) [Mass fraction] 99 % Eric Darrell [facility] 12-02-2022 04:35-0400 Systolic blood pressure 113 mm[Hg] Eric Darrell [facility] 12-02-2022 02:32-0400 Body temperature 97.52 [degF] Eric Darrell [facility] 12-02-2022 02:32-0400 Diastolic blood pressure 80 mm[Hg] Eric Darrell [facility] 12-02-2022 02:32-0400 Heart rate 95 /min Eric Darrell [facility] 12-02-2022 02:32-0400 Respiratory rate 16 /min Eric Darrell [facility] 12-02-2022 02:32-0400 SaO2% (BldA) [Mass fraction] 98 % Eric Darrell [facility] 12-02-2022 02:32-0400 Systolic blood pressure 115 mm[Hg] Eric Darrell [facility] 11-27-2022 23:03-0400 Hourly Rounding Kaylinn Dokken [facility] 11-27-2022 23:02-0400 Diastolic blood pressure 80 mm[Hg] Kaylinn Dokken [facility] 11-27-2022 23:02-0400 Heart rate 79 /min Kaylinn Dokken [facility] 11-27-2022 23:02-0400 Mean blood pressure 91 mm[Hg] Kaylinn Dokken [facility] 11-27-2022 23:02-0400 SaO2% (BldA) [Mass fraction] 97 % Kaylinn Dokken [facility] 11-27-2022 23:02-0400 Systolic blood pressure 114 mm[Hg] Kaylinn Dokken [facility] 11-27-2022 22:53-0400 Diastolic blood pressure 60 mm[Hg] Kaylinn Dokken [facility] 11-27-2022 22:53-0400 Heart rate 85 /min Kaylinn Dokken [facility] 11-27-2022 22:53-0400 Mean blood pressure 76 mm[Hg] Kaylinn Dokken [facility] 11-27-2022 22:53-0400 SaO2% (BldA) [Mass fraction] 97 % Kaylinn Dokken [facility] 11-27-2022 22:53-0400 Systolic blood pressure 107 mm[Hg] Kaylinn Dokken [facility] 11-27-2022 22:16-0400 Diastolic blood pressure 79 mm[Hg] Kaylinn Dokken [facility] 11-27-2022 22:16-0400 Heart rate 75 /min Kaylinn Dokken [facility] 11-27-2022 22:16-0400 Mean blood pressure 91 mm[Hg] Kaylinn Dokken [facility] 11-27-2022 22:16-0400 SaO2% (BldA) [Mass fraction] 99 % Kaylinn Dokken [facility] 11-27-2022 22:16-0400 Systolic blood pressure 114 mm[Hg] Kaylinn Dokken [facility] 11-27-2022 22:05-0400 Respiratory rate 18 /min Kaylinn Dokken [facility] 11-27-2022 21:30-0400 Respiratory rate 15 /min Kaylinn Dokken [facility] 11-27-2022 20:37-0400 Body temperature 98.06 [degF] Kaylinn Dokken [facility] 11-27-2022 20:37-0400 Heart rate 77 /min Kaylinn Dokken [facility] 11-27-2022 20:37-0400 Respiratory rate 16 /min Aleta Oliveira [facility] 11-11-2022 19:35-0400 Body temperature 97.88 [degF] [facility] 11-11-2022 19:35-0400 Diastolic blood pressure 86 mm[Hg] [facility] 11-11-2022 19:35-0400 Heart rate 80 /min [facility] 11-11-2022 19:35-0400 Respiratory rate 20 /min [facility] 11-11-2022 19:35-0400 SaO2% (BldA) [Mass fraction] 98 % [facility] 11-11-2022 19:35-0400 Systolic blood pressure 128 mm[Hg] [facility] 11-08-2022 12:00-0400 Hourly Rounding Evan Printy [facility] 11-08-2022 12:00-0400 Promise to Return Evan Printy [facility] 11-08-2022 11:00-0400 Hourly Rounding Evan Printy [facility] 11-08-2022 11:00-0400 Promise to Return Evan Printy [facility] 11-08-2022 10:00-0400 Hourly Rounding Evan Printy [facility] 11-08-2022 10:00-0400 Promise to Return Evan Printy [facility] 11-08-2022 08:00-0400 Blood Pressure Location Evan Printy [facility] 11-08-2022 08:00-0400 Body temperature 97.88 [degF] Evan Printy [facility] 11-08-2022 08:00-0400 Diastolic blood pressure 75 mm[Hg] Evan Printy [facility] 11-08-2022 08:00-0400 Heart rate 96 /min Eavn Printy [facility] 11-08-2022 08:00-0400 Mean blood pressure 90 mm[Hg] Evan Printy [facility] 11-08-2022 08:00-0400 Respiratory rate 18 /min Evan Printy [facility] 11-08-2022 08:00-0400 SaO2% (BldA) [Mass fraction] 99 % Evan Printy [facility] 11-08-2022 08:00-0400 Systolic blood pressure 120 mm[Hg] Evan Printy [facility] 11-07-2022 20:45-0400 Heart rate 86 /min Evan Printy [facility] 11-07-2022 20:45-0400 SaO2% (BldA) [Mass fraction] 95 % Evan Printy [facility] 11-07-2022 20:45-0400 Body temperature 97.52 [degF] Evan Printy [facility] 11-07-2022 20:45-0400 Diastolic blood pressure 61 mm[Hg] Evan Printy [facility] 11-07-2022 20:45-0400 Mean blood pressure 70 mm[Hg] Evan Printy [facility] 11-07-2022 20:45-0400 Systolic blood pressure 90 mm[Hg] Evan Printy [facility] 11-07-2022 20:45-0400 Blood Pressure Location Evan Printy [facility] 11-07-2022 20:45-0400 Mean blood pressure 71 mm[Hg] Evan Printy [facility] 11-07-2022 20:45-0400 Respiratory rate 18 /min Evan Printy [facility] 11-07-2022 14:00-0400 Body temperature 98.6 [degF] Evan Printy [facility] 11-07-2022 14:00-0400 Diastolic blood pressure 66 mm[Hg] Evan Printy [facility] 11-07-2022 14:00-0400 Heart rate 90 /min Evan Printy [facility] 11-07-2022 14:00-0400 Mean blood pressure 81 mm[Hg] Evan Printy [facility] 11-07-2022 14:00-0400 SaO2% (BldA) [Mass fraction] 98 % Evan Printy [facility] 11-07-2022 14:00-0400 Systolic blood pressure 110 mm[Hg] Evan Printy [facility] 11-07-2022 04:10-0400 Mean blood pressure 64 mm[Hg] Evan Printy [facility] 11-07-2022 00:40-0400 Mean blood pressure 72 mm[Hg] Evan Printy [facility] 11-06-2022 18:00-0400 Body temperature 97.88 [degF] Evan Printy [facility] 11-06-2022 18:00-0400 Respiratory rate 18 /min Evan Printy [facility] 11-06-2022 16:00-0400 Body temperature 97.7 [degF] Evan Moore [facility] 11-06-2022 15:00-0400 Body temperature 98.96 [degF] Evan Moore [facility] 11-06-2022 13:25-0400 FIO2 99 % Evan Moore [facility] 11-06-2022 13:20-0400 FIO2 99 % Evan Barnesy [facility] 11-06-2022 13:15-0400 FIO2 99 % Evan Barnesy [facility] 11-06-2022 09:26-0400 Heart rate 101 /min Evan Moore [facility] 11-02-2022 20:10-0400 Hourly Rounding Alexys Delgado [facility] Comment on above: Result Comment: pt. discharges off unit ambulatory to private car; assistance offered and declined 11-02-2022 20:09-0400 Hourly Rounding Alexys Delgado [facility] Comment on above: Result Comment: discharge instructions sabiha curtis, questions answered, papers signed 11-02-2022 19:59-0400 Hourly Rounding Alexys Delgado [facility] Comment on above: Result Comment: [...] change 11-02-2022 19:14-0400 Blood Pressure Location Alexys William [facility] 11-02-2022 19:14-0400 Diastolic blood pressure 71 mm[Hg] Alexys Clarkten [facility] 11-02-2022 19:14-0400 Heart rate 108 /min Alexys Delgado [facility] 11-02-2022 19:14-0400 Mean blood pressure 86 mm[Hg] Alexys William [facility] 11-02-2022 19:14-0400 Promise to Return Alexys Delgado [facility] 11-02-2022 19:14-0400 Respiratory rate 18 /min Alexys Delgado [facility] 11-02-2022 19:14-0400 Systolic blood pressure 117 mm[Hg] Alexys Clarkten [facility] 11-02-2022 18:30-0400 Body temperature 98.06 [degF] Alexys Clarkten [facility] 11-02-2022 18:30-0400 Diastolic blood pressure 59 mm[Hg] Alexys Clarkten [facility] 11-02-2022 18:30-0400 Heart rate 98 /min Alxeys Delgado [facility] 11-02-2022 18:30-0400 Mean blood pressure 80 mm[Hg] Alexys Clarkten [facility] 11-02-2022 18:30-0400 Respiratory rate 18 /min Alexys Clarkten [facility] 11-02-2022 18:30-0400 Systolic blood pressure 121 mm[Hg] Alexys Clarkten [facility] 10-26-2022 13:30-0400 Respiratory rate 20 /min Shabbir Mi Work Phone: [facility] 10-26-2022 13:22-0400 SaO2% (BldA) [Mass fraction] 98 % Shabbir Mi Work Phone: [facility] 10-26-2022 11:40-0400 Body height 165.1 cm Shabbir Mi Work Phone: [facility] 10-26-2022 11:40-0400 Body weight 125.64 kg Shabbir Mi Work Phone: [facility] 10-26-2022 10:24-0400 Diastolic blood pressure 64 mm[Hg] Shabbir Duranel Work Phone: [facility] 10-26-2022 10:24-0400 Heart rate 91 /min Shabbir Mi Work Phone: [facility] 10-26-2022 10:24-0400 Systolic blood pressure 101 mm[Hg] Shabbir Mi Work Phone: [facility] 10-25-2022 15:30-0400 Hourly Rounding Alexys Delgado [facility] Comment on above: Result Comment: discharge instructions saibha curtis, encouraged to return for increasing pain or regular ctx 10-25-2022 15:11-0400 Diastolic blood pressure 61 mm[Hg] Alexys William [facility] 10-25-2022 15:11-0400 Heart rate 100 /min Alexys Delgado [facility] 10-25-2022 15:11-0400 Mean blood pressure 79 mm[Hg] Alexys William [facility] 10-25-2022 15:11-0400 Respiratory rate 20 /min Alexys William [facility] 10-25-2022 15:11-0400 Systolic blood pressure 114 mm[Hg] Alexys William [facility] 10-25-2022 15:00-0400 Hourly Rounding Alexys Delgado [facility] Comment on above: Result Comment: pt holding abdomen state s discomfort at 8. abdomen palpated soft 10-25-2022 07:50-0400 Blood Pressure Location Alexys Delgado [facility] 10-25-2022 07:50-0400 Diastolic blood pressure 66 mm[Hg] Alexys William [facility] 10-25-2022 07:50-0400 Heart rate 117 /min Alexys Clarkten [facility] 10-25-2022 07:50-0400 Mean blood pressure 87 mm[Hg] Alexys Clarkten [facility] 10-25-2022 07:50-0400 Respiratory rate 18 /min Alexys Delgado [facility] 10-25-2022 07:50-0400 Systolic blood pressure 130 mm[Hg] Alexys Clarkten [facility] 10-23-2022 17:00-0400 Blood Pressure Location Evan Printy [facility] 10-23-2022 17:00-0400 Diastolic blood pressure 59 mm[Hg] Evan Printy [facility] 10-23-2022 17:00-0400 Heart rate 99 /min Evan Printy [facility] 10-23-2022 17:00-0400 Hourly Rounding Evan Printy [facility] 10-23-2022 17:00-0400 Mean blood pressure 81 mm[Hg] Vean Printy [facility] 10-23-2022 17:00-0400 Promise to Return Evan Printy [facility] 10-23-2022 17:00-0400 Respiratory rate 18 /min Evan Printy [facility] 10-23-2022 17:00-0400 SaO2% (BldA) [Mass fraction] 100 % Evan Printy [facility] 10-23-2022 17:00-0400 Systolic blood pressure 126 mm[Hg] Evan Printy [facility] 10-23-2022 16:00-0400 Hourly Rounding Evan Printy [facility] 10-23-2022 16:00-0400 Promise to Return Evan Printy [facility] 10-23-2022 15:00-0400 Body temperature 98.42 [degF] Evan Printy [facility] 10-23-2022 15:00-0400 Diastolic blood pressure 73 mm[Hg] Evan Printy [facility] 10-23-2022 15:00-0400 Heart rate 108 /min Evan Printy [facility] 10-23-2022 15:00-0400 Hourly Rounding Evan Printy [facility] 10-23-2022 15:00-0400 Mean blood pressure 88 mm[Hg] Evan Printy [facility] 10-23-2022 15:00-0400 Promise to Return Evan Printy [facility] 10-23-2022 15:00-0400 Systolic blood pressure 118 mm[Hg] Evan Printy [facility] 10-20-2022 23:29-0400 Hourly Rounding Alexys Clarkten [facility] Comment on above: Result Comment: Patient discharged to pr ivate vehicle. No s/s of distress. 10-20-2022 23:21-0400 Hourly Rounding Alexys Delgado [facility] Comment on above: Result Comment: Plan of care reviewed. P atient up to the bathroom to change. 10-20-2022 23:00-0400 Hourly Rounding Alexys Delgado [facility] Comment on above: Result Comment: Patient resting in bed d rinking water. Denies any needs. Call light in reach. 10-20-2022 22:32-0400 Diastolic blood pressure 58 mm[Hg] Alexys Delgado [facility] 10-20-2022 22:32-0400 Heart rate 99 /min Alexys Delgado [facility] 10-20-2022 22:32-0400 Mean blood pressure 77 mm[Hg] Alexys Delgado [facility] 10-20-2022 22:32-0400 Respiratory rate 16 /min Alexys Delgado [facility] 10-20-2022 22:32-0400 Systolic blood pressure 116 mm[Hg] Alexys Delgado [facility] 10-20-2022 15:15-0400 Hourly Rounding Alexys Delgado [facility] Comment on above: Result Comment: reviewed d/c instruction s with pt, voices understanding. pt mother at bedside voices understanding. 10-20-2022 14:45-0400 Hourly Rounding Alexys Delgado [facility] 10-20-2022 13:55-0400 Blood Pressure Location Alexys Delgado [facility] 10-20-2022 13:55-0400 Diastolic blood pressure 55 mm[Hg] Alexys Delgado [facility] 10-20-2022 13:55-0400 Heart rate 103 /min Alexys Delgado [facility] 10-20-2022 13:55-0400 Mean blood pressure 71 mm[Hg] Alexys Delgado [facility] 10-20-2022 13:55-0400 Systolic blood pressure 102 mm[Hg] Alexys Delgado [facility] 10-20-2022 13:51-0400 Body temperature 98.24 [degF] Alexys Delgado [facility] 10-20-2022 13:51-0400 Respiratory rate 20 /min Alexys Delgado [facility] 10-20-2022 13:45-0400 Hourly Rounding Alexys Delgado [facility] 10-01-2022 08:30-0500 Hourly Rounding Evan Moore [facility] 09-09-2022 14:52-0500 Respiratory rate 22 /min Shabbir Spettel Work Phone: [facility] 09-09-2022 14:23-0500 Diastolic blood pressure 65 mm[Hg] Shabbir Spettel Work Phone: [facility] 09-09-2022 14:23-0500 Heart rate 123 /min Shabbir Spettel Work Phone: [facility] 09-09-2022 14:23-0500 Systolic blood pressure 106 mm[Hg] Shabbir Spettel Work Phone: [facility] 09-09-2022 13:48-0500 SaO2% (BldA) [Mass fraction] 99 % Shabbir Spettel Work Phone: [facility] 09-09-2022 13:47-0500 Body temperature 97.9 [degF] Shabbir Spettel Work Phone: [facility] 09-09-2022 13:44-0500 Body height 165.1 cm Shabbir Spettel Work Phone: [facility] 09-09-2022 13:44-0500 Body weight 126.09 kg Shabbir Spettel Work Phone: 0(889)403-722526 [place] [address] 04-20-2022 20:20-0400 Body height 165.1 cm Shabbir Spettel Work Phone: 4(663)742-181354 [place] [address] 04-20-2022 20:20-0400 Body temperature 98.8 [degF] Shabbir Spettel Work Phone: 2(293)582-563754 [place] [address] 04-20-2022 20:20-0400 Body weight 127 kg Shabbir Spettel Work Phone: 2(827)598-545526 [place] [address] 04-20-2022 20:20-0400 Diastolic blood pressure 81 mm[Hg] Shabbir Spettel Work Phone: 6(844)664-094754 [place] [address] 04-20-2022 20:20-0400 Heart rate 102 /min Shabbir Spettel Work Phone: 6(034)413-454226 [place] [address] 04-20-2022 20:20-0400 Respiratory rate 18 /min Shabbir Spettel Work Phone: [facility] 04-20-2022 20:20-0400 SaO2% (BldA) [Mass fraction] 98 % Shabbir Spettel Work Phone: 5(841)945-712026 [place] [address] 04-20-2022 20:20-0400 Systolic blood pressure 124 mm[Hg] Shabbir Spettel Work Phone: 9(089)139-145926 [place] [address] 04-16-2022 04:19-0400 Body temperature 98.9 [degF] Shabbir Spettel Work Phone: 3(009)899-484126 [place] [address] 04-16-2022 04:19-0400 Diastolic blood pressure 99 mm[Hg] Shabbir Spettel Work Phone: [facility] 04-16-2022 04:19-0400 Heart rate 139 /min Shabbir Spettel Work Phone: [facility] 04-16-2022 04:19-0400 Respiratory rate 22 /min Shabbir Spettel Work Phone: [facility] 04-16-2022 04:19-0400 SaO2% (BldA) [Mass fraction] 95 % Shabbir Spettel Work Phone: [facility] 04-16-2022 04:19-0400 Systolic blood pressure 133 mm[Hg] Shabbir Spettel Work Phone: [facility] 04-16-2022 04:15-0400 Body height 160.02 cm Shabbir Duranel Work Phone: [facility] 04-16-2022 04:15-0400 Body weight 126.09 kg Shabbir Duranel Work Phone: [facility] 01-16-2022 13:23-0400 Body height 163.83 cm Mattie Lipscomb Work Phone: [facility] Work Phone: 01-16-2022 13:23-0400 Body mass index (BMI) [Ratio] 45.97 kg/m2 Mattie Lipscomb Work Phone: [facility] Work Phone: 01-16-2022 13:23-0400 Body surface area Derived from formula 2.24 m2 Mattie Lipscomb Work Phone: [facility] Work Phone: 01-16-2022 13:23-0400 Body temperature 97.4 [degF] Mattie Lipscomb Work Phone: [facility] Work Phone: 01-16-2022 13:23-0400 Body weight 123.38 kg Mattie Lipscomb Work Phone: [facility] Work Phone: 01-16-2022 13:23-0400 Diastolic blood pressure 72 mm[Hg] Mattie Rodriguez Ruel Work Phone: [facility] Work Phone: 01-16-2022 13:23-0400 Heart rate 120 /min Mattie Michael Ruel Work Phone: [facility] Work Phone: 01-16-2022 13:23-0400 Respiratory rate 16 /min Mattie Rodriguez Ruel Work Phone: [facility] Work Phone: 01-16-2022 13:23-0400 SaO2% (BldA) [Mass fraction] 99 % Mattie Lipscomb Work Phone: [facility] Work Phone: 01-16-2022 13:23-0400 Systolic blood pressure 108 mm[Hg] Mattie Montes De Ocaabrese Work Phone: [facility] Work Phone: 01-16-2022 13:23-0400 3 1 Mattie Michael Ruel Work Phone: [facility] Work Phone: Comment on above: GRAV PARA 01-04-2020 11:27-0400 BMI (Body Mass Index) 42.51 kg/m2 [facility] [place], [place] 01-04-2020 11:27-0400 Body Temperature 98.71 [degF] [facility] [place] 01-04-2020 11:27-0400 Body weight 108.86 kg [facility] [place] , [place] 01-04-2020 11:27-0400 BP Diastolic 82 mm[Hg] [facility] [place] , [place] 01-04-2020 11:27-0400 BP Systolic 121 mm[Hg] [facility] [place] 01-04-2020 11:27-0400 Height 160 cm [facility] 01-04-2020 11:27-0400 Pulse (Heart Rate) 88 /min [facility] [place] 01-04-2020 11:27-0400 Pulse Oximetry 96 % [facility] 01-04-2020 11:27-0400 Respiratory Rate 16 /min [facility] [place] [place] 12-30-2019 10:26-0400 BMI (Body Mass Index) 42.51 kg/m2 [facility] [place] 12-30-2019 10:26-0400 Body Temperature 96.69 [degF] [facility] [place] 12-30-2019 10:26-0400 Body weight 108.86 kg [facility] [place] 12-30-2019 10:26-0400 Height 160 cm [facility] [place] 12-30-2019 10:26-0400 Pulse (Heart Rate) 87 /min [facility] 12-30-2019 10:26-0400 Pulse Oximetry 98 % [facility] 12-30-2019 10:26-0400 Respiratory Rate 19 /min [facility] [place] 03-09-2019 00:05-0400 BP Diastolic 66 mm[Hg] [facility] [place] , [place] 03-09-2019 00:05-0400 BP Systolic 100 mm[Hg] [facility] [place] 03-09-2019 00:05-0400 Pulse (Heart Rate) 59 /min [facility] 03-09-2019 00:05-0400 Pulse Oximetry 100 % [facility] 03-09-2019 00:05-0400 Respiratory Rate 14 /min [facility] [place] 03-08-2019 20:58-0400 BMI (Body Mass Index) 40.74 kg/m2 [facility] [place] 03-08-2019 20:58-0400 Body Temperature 98.6 [degF] [facility] [place] 03-08-2019 20:58-0400 Body weight 104.33 [facility] [place] Encounters Encounter Date Encounter Type Care Provider Facility Start: 10-30-2024 End: 10-30-2024 Emergency department patient visit Blake Rivera [facility] Start: 10-16-2024 End: 10-16-2024 ambulatory Triny Ray [facility] Work Phone: Start: 10-16-2024 End: 10-16-2024 Departed Referred Triny Ray MD Work Phone: [facility] Start: 10-08-2024 End: 10-08-2024 Emergency department patient visit Eric Ramírez [facility] Start: 09-08-2024 End: 09-08-2024 ambulatory DOREEN HA [facility] Start: 09-08-2024 End: 09-08-2024 ambulatory Papi CRAWFORD [facility] Start: 09-08-2024 End: 09-08-2024 ambulatory Luz Marina Johnson AMES Facility:[facility] Start: 09-02-2024 End: 09-02-2024 ambulatory DOREEN HA [facility] Start: 09-02-2024 End: 09-02-2024 ambulatory DOREEN HA [facility] Start: 07-30-2024 End: 07-30-2024 Bamboo flowsheet Familia Putnam DPM FACFAS Work Phone: [facility] Start: 07-30-2024 End: 07-30-2024 Bamboo flowsheet Familia Putnam DPM FACFAS Work Phone: [facility] Start: 07-30-2024 End: 07-30-2024 Office outpatient visit 15 minutes Familia D Dolce DPM FACFAS Work Phone: [facility] Comment on above: Plantar fasciitis (P rimary Dx); Gastrocnemius equinus of left lower extremity; Gastrocnemius equinus of right lower extremity Start: 07-30-2024 End: 07-30-2024 ambulatory FAMILIA D DOLCE Not Available Start: 07-13-2024 End: 07-13-2024 ambulatory DOREEN HA Facility:[facility] Start: 07-13-2024 End: 07-13-2024 Patient encounter procedure DOREEN HA [facility] Start: 07-08-2024 End: 08-30-2024 ambulatory DOREEN HA Facility:[facility] Start: 07-08-2024 End: 08-30-2024 Recurring DOREEN HA [facility] Start: 07-02-2024 End: 07-02-2024 Bamboo [...] Start: 05-31-2024 End: 05-31-2024 ambulatory DOREEN HA Facility:[facility] Start: 05-31-2024 End: 05-31-2024 Patient encounter procedure DOREEN HA [facility] Start: 05-30-2024 End: 05-30-2024 Emergency department patient visit Ashley Faustin [facility] Start: 05-19-2024 End: 05-19-2024 Bamboo [...] 05-17-2024 Emergency department patient visit Bi Galeana [facility] Start: 05-09-2024 End: 05-09-2024 Emergency department patient visit Bi Galeana [facility] Start: 01-12-2024 End: 01-13-2024 Emergency department patient visit Aleta Oliveira [facility] Start: 2024 End: 01-07-2024 Emergency department patient visit Bi Galeana [facility] Start: 12-23-2023 End: 12-23-2023 ambulatory DOREEN GARRETT Not Available Start: 09-23-2023 End: 09-23-2023 [facility] Start: 08-22-2023 End: 08-22-2023 Emergency department patient visit Nevaehsammiruth anntacos Oliveira [facility] Start: 07-27-2023 End: 07-27-2023 Emergency department patient visit Aleta Oliveira [facility] Start: 07-25-2023 End: 07-25-2023 Emergency department patient visit Kosta Raul [facility] Start: 07-13-2023 End: 07-13-2023 [facility] Start: 06-13-2023 End: 06-13-2023 Emergency department patient visit Bi Galeana Facility:[facility] Start: 05-15-2023 End: 05-15-2023 ambulatory Papi DESHLER Facility:[facility] Start: 04-24-2023 End: 04-24-2023 Emergency department patient visit Ashley Faustin [facility] Start: 03-26-2023 End: 03-26-2023 ambulatory JEANINE TORRE Facility:[facility] Start: 02-27-2023 End: 02-27-2023 Emergency department patient visit Bi Galeana [facility] Start: 01-14-2023 End: 01-14-2023 Emergency department patient visit Blake Rivera [facility] Start: 01-10-2023 End: 01-10-2023 Office outpatient visit 40 minutes Orlando Pace MD Work Phone: [facility] Comment on above: Bipolar and related disorder (CMS/HCC) (Primary Dx); Schizophrenia, unspecified type (CMS/HCC); Fibromyalgia; Anxiety; Class 3 severe obesity due to excess calories with serious comorbidity and body mass index (BMI) of 40.0 to 44.9 in adult (CMS/HCC) Start: 12-04-2022 End: 12-04-2022 Emergency department patient visit ORLANDO PACE [facility] Start: 12-02-2022 End: 12-02-2022 Emergency department patient visit Eric Ramírez [facility] Start: 11-27-2022 End: 11-27-2022 Emergency department patient visit Aleta Oliveira [facility] Start: 11-11-2022 End: 11-11-2022 Emergency department patient visit Ashley Faustin [facility] Start: 11-06-2022 End: 11-08-2022 Evaluation and management of inpatient Evan Moore [facility] Start: 11-02-2022 End: 11-02-2022 OB Triage Alexys Delgado [facility] Start: 10-26-2022 End: 10-26-2022 Evaluation and management of inpatient Shabbir Mi Work Phone: [facility] Work Phone: Start: 10-26-2022 End: 10-26-2022 Evaluation and management of inpatient Shabbir Mi Work Phone: [facility] Work Phone: Start: 10-26-2022 End: 10-26-2022 observation encounter Shabbir Mi Work Phone: [facility] Work Phone: Start: 10-25-2022 End: 10-25-2022 OB Triage Alexys Rosas William [facility] Start: 10-25-2022 End: 10-25-2022 Patient encounter procedure Alexys Delgado [facility] Start: 10-23-2022 End: 10-23-2022 OB Triage Evan Moore [facility] Start: 10-20-2022 End: 10-20-2022 OB Triage Alexys Delgado [facility] Start: 10-20-2022 End: 10-20-2022 OB Triage Alexys Rosas William [facility] Start: 10-17-2022 End: 10-17-2022 Patient encounter procedure Evan Moore [facility] Start: 10-15-2022 End: 10-15-2022 Patient encounter procedure Evan Moore [facility] Start: 10-11-2022 End: 10-11-2022 Patient encounter procedure Evan Moore [facility] Start: 10-08-2022 End: 10-08-2022 Patient encounter procedure Evan Barnesy [facility] Start: 10-03-2022 End: 10-03-2022 Patient encounter procedure Evan Barnesy [facility] Start: 10-01-2022 End: 10-01-2022 Patient encounter procedure Evan Barnesy [facility] Start: 09-27-2022 End: 09-27-2022 Patient encounter procedure Evan Moore [facility] Start: 09-09-2022 End: 09-09-2022 Patient encounter procedure Shabbir Mi Work Phone: [facility] - O/P Start: 09-03-[address] Orlando solorzano Ksenic Facility:[id number] Start: 08-16-2022 End: 08-16-2022 ambulatory Shabbir Mi Work Phone: [facility] Work Phone: Start: 08-16-2022 End: 08-16-2022 Patient encounter procedure Shabbir Mi Work Phone: [facility] Work Phone: Start: 08-09-2022 End: 08-09-2022 ambulatory Shabbir Mi Work Phone: [facility] Work Phone: Start: 08-09-2022 End: 08-09-2022 Patient encounter procedure Shabbir Hiwot Work Phone: [facility] Work Phone: Start: 04-20-2022 End: 04-20-2022 Emergency department patient visit Shabbir Rodneyzandra Work Phone: [facility] Start: 04-18-[address] Mattie Lipscomb Facility:[id number] Start: 04-18-2022 End: 04-18-2022 Patient encounter procedure Doreen GARRETT [facility] Start: 04-16-2022 End: 04-16-2022 Emergency department patient visit Shabbir Rodneyzandra Work Phone: [facility] Start: 03-25-2022 End: 03-25-2022 Patient encounter procedure Doreen GARRETT [facility] Start: 03-18-[address] Mattie Lipscomb Facility:[id number] Start: 03-15-2022 AUDIT Mattie evans Work Phone: [facility] Work Phone: Start: 02-08-2022 Chart Update Mattie evans Work Phone: [facility] Work Phone: Start: 02-07-[address] Mattie Lipscomb Facility:[id number] Start: 01-18-2022 Chart Update [facility]ans [facility]: Start: 01-16-2022 Initial preventive medicine new pt age 18-39yrs Mattie Lipscomb Work Phone: [facility] Work Phone: Start: 01-16-[address] Mattie Lipscomb Facility:[id number] Start: 01-02-2022 ambulatory Referral Self Facility: [id number] Start: 12-10-2021 End: 12-10-2021 Emergency department patient visit MIKO CROWDER [facility] Start: 12-20-2020 End: 12-20-2020 ambulatory GRACIA DEVONTE Facility:[id number] Start: 01-04-2020 End: 01-04-2020 Emergency department patient visit [facility] ED Comment on above: Trichomonas vaginiti s (Primary Dx); Blister (nonthermal) of vagina and vulva, initial encounter; Acute cystitis without hematuria Start: 12-30-2019 End: 12-30-2019 Emergency department patient visit [facility] ED Comment on above: Acute cystitis witho ut hematuria (Primary Dx); Skin yeast infection Start: 03-08-2019 End: 03-09-2019 Emergency department patient visit [facility] ED Comment on above: Constipation, unspec ified constipation type (Primary Dx); Lower abdominal pain; Nausea; Dysuria; Chronic bilateral low back pain with bilateral sciatica Start: 05-05-2018 End: 05-05-2018 Emergency department patient visit MIKO CARLOS [facility] Start: 07-28-2017 End: 07-28-2017 Emergency department patient visit VANDANA VENTURA [facility] Start: 04-29-2017 End: 04-29-2017 Emergency department patient visit [facility] Start: 04-01-2017 End: 04-02-2017 Emergency department patient visit [facility] Encounter for gynecological examination (general) (routine) without abnormal findings Mattie Lipscomb Work Phone: [facility] Work Phone: Comment on above: 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; Procedures Date Procedure Procedure Detail Performing Clinician Start: 10-26-2022 Urine culture Shabbir Mi Work [...] src wet delon nt nfct agt Beverly Mosie Work Phone: Start: 01-04-2020 Urinalysis microscopic only [...] MIKO CARLOS Start: 05-05-2018 SEDIMENTATION RATE ALIZE Ralph CARLOS Start: 05-05-2018 Urine test visual color cmprsn meths MIKO CARLOS Start: 04-29-2017 URINE CULTURE YURI ZAMARRIPA Start: 04-29-2017 Microscopic urinalysis YURI PHILIP Start: 04-29-2017 , URINE THERESA PHILIP Start: 04-29-2017 Urinalysis YURI VALDERRAMA Start: 04-01-2017 STREP A DNA PROBE, AMPLIFICATION YURI PHILIP Start: 04-01-2017 STREP SCREEN GROUP A THROAT YURI KERRNER No history of surgery Roney Lipscomb Work Phone: None (qualifier value) Obdulia GARRETT Streptococcus pyogen es antigen assay Shabbir Mi Work Phone: Plan of Treatment Date Care Activity Detail Author Start: 01-07-2048 Zoster Vaccines (1 o f 2) Zoster Vaccines (1 of 2) [facility] Start: 11-07-2032 DTaP/Tdap/Td Vaccine s (11 - Td or Tdap) DTaP/Tdap/Td Vaccines (11 - Td or Tdap) [facility] Start: 01-16-2027 Lipid panel Lipid Panel [facility] Start: 12-29-2024 Screening for malign ant neoplasm of cervix [facility] Start: 12-28-2024 End: 12-28-2024 Patient encounter procedure 12/28/2024 1:00 PM EDT Office Visit [facility] [address] [id number] Doreen Garrett NP [address] [place] [address] [facility] Start: 10-16-2024 Bacteria identified in Urine by Culture Urine Culture [facility] Start: 10-16-2024 Urine culture [facility] Start: 07-30-2024 End: 07-30-2024 Patient encounter procedure 07/30/2024 8:00 AM EST Office Visit [facility] [address] [place] [phone] Familia Putnam, DPM FACFAS [address] [place] [address] Arrived [facility] Comment on above: Arrived Start: 07-02-2024 End: 07-02-2024 Clinical Support 07/02/2024 7:50 AM EST Clinical Support [facility] [address] [place] [phone] Familia Putnam, DPM FACFAS [address] [place] [address] Arrived [facility] Comment on above: Arrived Start: 06-02-2024 End: 06-02-2024 Clinical Support 06/02/2024 1:50 PM EST Clinical Support [facility] [address] [place] [phone] Familia Putnam, DPM FACFAS [address] [place] [address] [facility] Start: 05-19-2024 End: 05-19-2024 Patient encounter procedure 05/19/2024 1:50 PM EDT Office Visit [facility] [address] [place] [phone] Familia Putnam, DPM FACFAS [address] [place] [address] Arrived [facility] Comment on above: Arrived Start: 03-28-2024 Influenza vaccination Influenza Vacc ine (#1) [facility] Start: 04-14-2023 End: 04-14-2023 Patient encounter procedure 04/14/2023 9:30 AM EDT Office Visit [facility] [address] [phone] Orlando Pace MD [address] [address] [facility] Start: 03-28-2023 Influenza vaccination Influenz a Vaccine (Season Ended) [facility] Start: 10-26-2022 Bacteria identified in Urine by Culture Urine Culture [facility] Start: 10-26-2022 [facility] Start: 10-26-2022 [facility] Start: 10-26-2022 Hospital admission [facility] Start: 09-09-2022 [facility] Start: 09-09-2022 Hospital admission [facility] Start: 03-18-2022 EPV, Provider: Janessa Bennett, Status: Pen, Time: 9:30 AM EPV, Provider: Janessa Bennett, Status: Pen, Time: 9:30 AM [facility] Work Phone: Start: 02-12-2022 NURSEVST, Provider: ANALOG IC DESIGN ARCHITECT ANTHONY VÁZQUEZ, Status: Pen, Time: 1:15 PM NURSEVST, Provider: ANALOG IC DESIGN ARCHITECT ANTHONY VÁZQUEZ, Status: Pen, Time: 1:15 PM [facility] Work Phone: Start: 02-07-2022 ECHO, Provider: MEDI NA HHVI,MG CARD, Status: Pen, Time: 8:00 AM ECHO, Provider: DICKSON HHVI,MG CARD, Status: Pen, Time: 8:00 AM [facility] Work Phone: Start: 03-28-2020 Influenza vaccination Flu vacc ine (Season Ended) [place], [place] Start: 03-28-2019 Influenza vaccination Flu vaccine (# 1) [place], [place] Start: 2019 Cervical cancer screen Cervical canc er screen [place] Start: 2019 Screening for malign ant neoplasm of cervix [facility] Start: 2017 DTaP/Tdap/Td vaccine (1 - Tdap) DTaP/Tdap/Td vaccine (1 - Tdap) [place] Start: 04-06-2016 Chlamydia screen Chlamydia screen [place], [place] Start: 04-06-2016 Screening for Chlamy lavon trachomatis Chlamydia screen [place] Start: 01-07-2016 Hepatitis C screening Hepatitis C [facility] Start: 2013 [facility] [place] [place] Start: 2013 [facility] [place] [place] Start: 2013 HPV vaccine (1 - Fem artie 3-dose series) HPV vaccine (1 - Female 3-dose series) [place], [place] Start: 2011 Varicella Vaccine (1 of 2 - 13+ 2-dose series) Varicella Vaccine (1 of 2 - 13+ 2-dose series) [place] Start: 2009 HPV vaccine (1 - 2-d ose series) HPV vaccine (1 - 2-dose series) [place] Start: 1999 Varicella vaccine (1 of 2 - 2-dose childhood series) Varicella vaccine (1 of 2 - 2-dose childhood series) [place] Start: 1998 COVID-19 Vaccine (#1) COVID-19 Vacci ne (#1) [facility] Start: 1998 HIV screening HIV Screening [facility] Start: 1998 Yearly Adult Physical [facility]ly [facility] End: 03-08-2019 Bacteria identified Cx Nom (U) Urine Culture Microbiology STAT Once for 1 Occurrences starting 03/08/2019 until 03/08/2019 [place] Comment on above: Once for 1 Occurrenc es starting 03/08/2019 until 03/08/2019 End: 01-04-2020 C.trachomatis N.gonorrhoeae DNA, Urine C.trachomatis N.gonorrhoeae DNA, Urine Microbiology Routine One Time for 1 Occurrences starting 01/04/2020 until 01/04/2020 [place] Comment on above: One Time for 1 Occur rences starting 01/04/2020 until 01/04/2020 End: 03-08-2019 CT ABDOMEN PELVIS W IV CONTRAST Additional Contrast? None CT ABDOMEN PELVIS W IV CONTRAST Additional Contrast? None Imaging STAT Once for 1 Occurrences starting 03/08/2019 until 03/08/2019 [place] Comment on above: Once for 1 Occurrenc es starting 03/08/2019 until 03/08/2019 CT ABDOMEN PELVIS W IV CONTRAST Additional Contrast? None CT ABDOMEN PELVIS W IV CONTRAST Additional Contrast? None Imaging STAT 03/08/2019 11:16 PM EDT [place] End: 12-30-2019 Culture, Urine Culture, Urine Microbiology STAT Once for 1 Occurrences starting 12/30/2019 until 12/30/2019 [place] Comment on above: Once for 1 Occurrenc es starting 12/30/2019 until 12/30/2019 Culture, Urine [place] End: 01-04-2020 Culture, Urine Culture, Urine Microbiology STAT Once for 1 Occurrences starting 01/04/2020 until 01/04/2020 [place] Comment on above: Once for 1 Occurrenc es starting 01/04/2020 until 01/04/2020 End: 01-04-2020 HERPES SIMPLEX VIRUS (HSV) I/II ANTIBODIES IGG & IGM W/ REFLEX HERPES SIMPLEX VIRUS (HSV) I/II ANTIBODIES IGG & IGM W/ REFLEX Lab Routine One Time for 1 Occurrences starting 01/04/2020 until 01/04/2020 [place] Comment on above: One Time for 1 Occur rences starting 01/04/2020 until 01/04/2020 HERPES SIMPLEX VIRUS (HSV) I/II ANTIBODIES IGG & IGM W/ REFLEX HERPES SIMPLEX VIRUS (HSV) I/II ANTIBODIES IGG & IGM W/ REFLEX Lab STAT 01/04/2020 12:00 PM EDT [place], [place] trichomonas vaginalis amplified probe tech TRICHOMONAS VAGINALIS RNA, QUAL TMA, PAP VIA Microbiology STAT 01/04/2020 12:45 PM EDT [place], [place] Patient Education [facility] Work Phone: Patient referral [facility] Work Phone: End: 01-04-2020 POC UR-QUAL POC UR-QUAL Point of Care Testing Routine One Time for 1 Occurrences starting 01/04/2020 until 01/04/2020 [place] Comment on above: One Time for 1 Occur rences starting 01/04/2020 until 01/04/2020 POC Urine Qual POC Urine Qual Point of Care Testing STAT 03/08/2019 [place] Immunizations Immunization Date Immunization Notes Care Provider Jyotsna ashton 09-08-2024 influenza, seasonal, injectable; Translations: [Fluzone TIV PF ] Eric Darrell [facility] Comment on above: Reason for Medicatio n: Prophylaxis 11-07-2022 tetanus toxoid, redu david diphtheria toxoid, and acellular pertussis vaccine, adsorbed Evan Moore [facility] Comment on above: Reason for Medicatio n: Other (see comment) 04-07-2021 tetanus toxoid, redu david diphtheria toxoid, and acellular pertussis vaccine, adsorbed Shabbir Mi Work Phone: [facility] 01-09-2021 tetanus toxoid, redu david diphtheria toxoid, and acellular pertussis vaccine, adsorbed Doreen GARRETT [facility] Comment on above: Early/Late Reason: E elmer/Late Reason: Nursing Judgment 11-08-2016 tetanus toxoid, redu david diphtheria toxoid, and acellular pertussis vaccine, adsorbed Doreen GARRETT [facility] Comment on above: Reason for Medicatio n: Other (see comment) 07-13-2013 hepatitis A vaccine, pediatric/adolescent dosage, 2 dose schedule Orlando Pace MD Work Phone: [facility] Work Phone: 07-13-2013 human papilloma viru s vaccine, quadrivalent Orlando Pace MD Work Phone: [facility] Work Phone: 03-02-2013 human papilloma viru s vaccine, quadrivalent Orlando Pace MD Work Phone: [facility] Work Phone: 12-15-2012 hepatitis A vaccine, pediatric/adolescent dosage, 2 dose schedule Orlando Pace MD Work Phone: [facility] Work Phone: 12-15-2012 human papilloma viru s vaccine, quadrivalent Orlando Pace MD Work Phone: [facility] Work Phone: 05-05-2012 varicella virus vaccine Harrison Pace MD Work Phone: [facility] Work Phone: 02-21-2010 meningococcal oligosaccharide (groups A, C, Y and W-135) diphtheria toxoid conjugate vaccine (MCV4O) Orlando Pace MD Work Phone: [facility] Work Phone: 02-21-2010 tetanus toxoid, redu david diphtheria toxoid, and acellular pertussis vaccine, adsorbed Orlando Pace MD Work Phone: [facility] Work Phone: 01-14-2003 diphtheria, tetanus toxoids and acellular pertussis vaccine, unspecified formulation Orlando Pace MD Work Phone: [facility] Work Phone: 01-14-2003 measles, mumps and rubella virus vaccine Orlando Pace MD Work Phone: [facility] Work Phone: 01-14-2003 poliovirus vaccine, inactivated Orlando Pace MD Work Phone: [facility] Work Phone: 05-07-2001 diphtheria, tetanus toxoids and acellular pertussis vaccine, unspecified formulation Orlando Pace MD Work Phone: [facility] Work Phone: 02-22-1999 diphtheria, tetanus toxoids and acellular pertussis vaccine, unspecified formulation Orlando Pace MD Work Phone: [facility] Work Phone: 02-22-1999 haemophilus influenz ae type b vaccine, conjugate unspecified formulation Orlando Pace MD Work Phone: [facility] Work Phone: 02-22-1999 hepatitis B vaccine, pediatric or pediatric/adolescent dosage Orlando Pace MD Work Phone: [facility] Work Phone: 02-22-1999 measles, mumps and rubella virus vaccine Orlando Pace MD Work Phone: [facility] Work Phone: 02-22-1999 poliovirus vaccine, inactivated Orlando Pace MD Work Phone: [facility] Work Phone: 02-22-1999 varicella virus vaccine Harrison Pace MD Work Phone: [facility] Work Phone: 1998 diphtheria, tetanus toxoids and acellular pertussis vaccine, unspecified formulation Orlando Pace MD Work Phone: [facility] Work Phone: 1998 haemophilus influenz ae type b vaccine, conjugate unspecified formulation Orlando Pace MD Work Phone: [facility] Work Phone: 1998 poliovirus vaccine, inactivated Orlando Pace MD Work Phone: [facility] Work Phone: 1998 diphtheria, tetanus toxoids and acellular pertussis vaccine, unspecified formulation Orlando Pace MD Work Phone: [facility] Work Phone: 1998 haemophilus influenz ae type b vaccine, conjugate unspecified formulation Orlando Pace MD Work Phone: [facility] Work Phone: 1998 hepatitis B vaccine, pediatric or pediatric/adolescent dosage Orlando Pace MD Work Phone: [facility] Work Phone: 1998 trivalent poliovirus vaccine, live, oral Orlando Pace MD Work Phone: [facility] Work Phone: 1998 hepatitis B vaccine, pediatric or pediatric/adolescent dosage Orlando Pace MD Work Phone: [facility] Work Phone: NEGATED: Highlighted row has not occurred!06-27-2021 influenza virus vaccine, unspecified formulation Doreen GARRETT [facility] NEGATED: Highlighted row has not occurred!06-27-2021 SARS-CoV-2 (COVID-19) Ad26 vaccine, recombinant Doreen GARRETT [facility] NEGATED: Highlighted row has not occurred!03-24-2019 influenza virus vaccine, unspecified formulation Doreen GARRETT [facility] Payers Date Payer Category Payer Self-pay [id number] 2016 Private Health Insurance [facility] [id number] 2016 Unknown 2016 Unknown [id number] 2014 Unknown [employer] [facility] xxxxxxxxxxx 2014-Present [phone] CLAIMS DEPARTMENT [address] [place] [address] xxxxxxxxxxx [id number] 1998 Unknown [id number] 2.16840.1.733540.3.579.2. 185 1998 Unknown [id number] 2.16840.1.606165.3.579.2. 182 1998 Unknown [id number] 2.16840.1.906032.3.579.2. 356 1998 Unknown [id number] 2.16840.1.927225.3.579.2. 356 1998 Unknown [id number] 2.16840.1.118131.3.579.2. 356 1998 Unknown [id number] 2.16840.1.980259.3.579.2. 356 1998 Unknown [id number] 2.16840.1.395758.3.579.2. 356 1998 Unknown [id number] 2.16840.1.805392.3.579.2. 356 1998 Unknown [id number] 2.16840.1.045236.3.579.2. 727 1998 Unknown [id number] 2.16840.1.762218.3.579.2. 727 1998 Unknown [id number] 2.16840.1.972673.3.579.2. 1998 Unknown [id number] 2.16.840.1.471011.3.579.2 1998 Unknown [id number] 2.16.840.1.815302.3.579.2. 1998 Unknown [id number] 2.16840.1.084755.3.579.2 1998 Unknown [id number] 2.16.840.1.973103.3.579.2. 1998 Unknown [id number] 2.16840.1.168583.3.579.2 1998 Unknown [id number] 2.16840.1.843155.3.579.2 1998 Unknown [id number] 2.840.1.338851.3.579.2 1998 Unknown [id number] 2.16840.1.738366.3.579.2 1998 Unknown [id number] 2.16840.1.888686.3.579.2 1998 Unknown [id number] 2.16840.1.962236.3.579.2. 1998 Unknown [id number] 2.16840.1.538355.3.579.2 1998 Unknown [id number] 2.16840.1.214394.3.579.2 1998 Unknown [id number] 2.16840.1.742741.3.579.2 1998 Unknown [id number] 2.16840.1.172990.3.579.2. 1998 Unknown [id number] 2.16840.1.203514.3.579.2 1998 Unknown [id number] 2.16.840.1.977954.3.579.2. 72 1998 Unknown [id number] 2.16.840.1.103550.3.579.2. 1258 1998 Unknown [id number] 2.16.840.1.951954.3.579.2. 1258 1998 Unknown [id number] 2.16.840.1.498163.3.579.2. 1258 1998 Unknown [id number] 2.16.840.1.624348.3.579.2. 1258 1998 Unknown [id number] 2.16.840.1.917060.3.579.2. 1258 1998 Unknown [id number] 2.16.840.1.735309.3.579.2. 1998 Unknown [id number] 2.16.840.1.886160.3.579.2. 1998 Unknown [id number] 2.16.840.1.185173.3.579.2. 1998 Unknown [id number] 2.16.840.1.950506.3.579.2. 1998 Unknown [id number] 2.16.840.1.001980.3.579.2. 1998 Unknown [id number] 2.16.840.1.749287.3.579.2. 1998 Unknown [id number] 2.16.840.1.298385.3.579.2. 1998 Unknown [id number] 2.16.840.1.976430.3.579.2. 1998 Unknown [id number] 2.16.840.1.120840.3.579.2. 1998 Unknown [id number] 2.16.840.1.188572.3.579.2. 72 1975 Unknown [id number] 2.16.840.1.044137.3.579.2. 593 1959 Unknown [id number] Unknown [id number] 2.16.840.1.082074.3.579.2. 531 Social History Date Type Detail Facility Start: 12-30-2019 End: 01-14-2023 Tobacco smoking status NHIS Former smoker [place], [place] History of tobacco use Cigarette Smoker M [place] Start: 12-30-2019 End: 12-18-2022 Cigarettes smoked current (pack per day) - Reported [facility] Start: 12-30-2019 End: 01-04-2020 Alcohol intake Current non-drinker of alcohol (finding) [place], [place] Start: 2000 Sex Assigned At Not on file [place], [place] Exposure to SARS-CoV -2 (event) Unable to assess [place] Start: 03-08-2019 End: 12-18-2022 Alcohol intake No [place] Tobacco smoking status Never [facility] Start: 04-16-2022 End: 12-11-2022 Tobacco smoking status NHIS Never smoked tobacco (finding) [facility] Start: 2000 Sex Assigned At Female F [facility] Start: 12-11-2022 End: 01-10-2023 Tobacco use and exposure Smokeless tobacco non-user [facility] Work Phone: Start: 01-10-2023 Alcohol intake Lifetime non-d ildefonso (finding) [facility] Work Phone: Start: 12-31-2022 End: 01-10-2023 Exposure to SARS-CoV-2 (event) Not sure [facility] Start: 12-23-2023 End: 07-30-2024 Alcoholic beverage intake Ex-drinker (finding) [facility] How often to you hav e a drink containing alcohol? Never [facility] Start: 11-08-2009 End: 10-18-2024 Sex Female (finding) [facility] Sexual Orientation [facility] NEGATED: Highlighted rowStart: NINF History of tobacco use Passive smoker [facility] Work Phone: Goals Date Patient Goal Desired Activity /State Functional Status Date Assessment Result Facility 10-30-2024 Functional Status N/A [facility] 10-08-2024 Functional Status N/A [facility] 05-30-2024 Functional Status N/A [facility] 05-17-2024 Functional Status N/A [facility] 05-09-2024 Functional Status N/A [facility] 01-12-2024 Functional Status N/A [facility] 2024 Functional Status N/A [facility] 09-23-2023 Functional Status N/A [facility] 08-22-2023 Functional Status N/A [facility] 07-27-2023 Functional Status N/A [facility] 07-25-2023 Functional Status N/A [facility] 07-13-2023 Functional Status N/A [facility] 04-24-2023 Functional Status N/A [facility] 02-27-2023 Functional Status N/A [facility] 01-14-2023 Functional Status N/A [facility] 12-04-2022 Functional Status N/A [facility] 12-02-2022 Functional Status N/A [facility] 11-27-2022 Functional Status N/A [facility] 11-11-2022 Functional Status N/A [facility] 11-06-2022 Functional Status No [facility] 11-02-2022 Functional Status N/A [facility] 10-25-2022 Functional Status N/A [facility] 10-23-2022 Functional Status N/A [facility] 10-20-2022 Functional Status N/A [facility] 10-20-2022 Functional Status N/A [facility] Clinical Notes 03-25-2022 to 10-30-2024 Note Date & Type Note Facility 10-30-2024 Hospital Discharg e instructions Follow Up Care 10/30/2024 16:48:05 With:DOREEN HA Address: [place] [phone]- Business (1) When:Within 3 Day(s) [facility] 10-30-2024 Evaluation + Plan note Extrac emmett from: Title:ED Note Author:Blake Rivera DO Date:10/30 Gastroenteritis (K52.9: Delores nfective gastroenteritis and colitis, unspecified) Orders: fluconazole, 150 mg = 1 tab(s), Oral, Once, Take one tab by mouth daily, # 1 tab(s), Refills(s) 0, Pharmacy: [facility], 162, cm, 10/30/24 16:52:00 EDT, Height/Length Dosing, 121.8, kg, 10/30/24 16:52:00 EDT, Weight Dosing ondansetron, 4 mg = 1 tab(s), Oral, q6hr, X 3 day(s), # 10 tab(s), Refills(s) 0, Pharmacy: [facility], 162, cm, 10/30/24 16:52:00 EDT, Height/Length Dosing, 121.8, kg, 10/30/24 16:52:00 EDT, Weight Dosing promethazine 25 mg + Sodium Chloride 0.9% intravenous solution 50 mL, Injection, IV Piggyback, Once, Stop date 10/30/24 16:58:00 EDT, STAT, Start date 10/30/24 16:58:00 EDT, 153 mL/hr, Infuse over 20 minute(s) Sodium Chloride 0.9% intravenous solution, 1,000 mL, Soln-IV, IV, Once, Stop date 10/30/24 16:58:00 EDT, STAT, Start date 10/30/24 16:58:00 EDT, Infuse over 61, minute(s) Basic Metabolic Panel CBC w/ Auto Diff eGFR Hepatic Function Panel Lipase Level [facility] 03-15-2025 Hospital Discharge instructions Patient Education 10/08/2024 23:06:58 Wrist Sprain, [...] have a splint, brace, or cast on yourwrist. Do exercises as told by your health care provider. Return to your normal activities as told by your health care provider. Ask your health care provider what activities are safe for you. General instructions Take bggg-zqd-knyjyxk and prescription medicines only as told by [...] provider. Document Revised: 11/20/2020 Document Reviewed: 11/20/2020 [employer] Patient Education 2023 [employer] 10/08/2024 23:06:58 Ankle Sprain Ankle Sprain An ankle sprain is a stretch or tear in a ligament in the ankle. Ligaments are tissues that connectbones to each other. The two most common [...] health care provider will press on parts ofyour foot and ankle and try to move [...] to prevent skin damage. The risk of damageis higher if you cannot feel pain, heat, or cold. Move your toes often to reduce stiffness and swelling. For 2 3 days, raise (elevate) your ankle above the level of your heart while you are sitting or lying down. General instructions Take alxb-lzm-haaclqy and prescription medicines only as told by [...] provider. Document Revised: 04/16/2023 Document Reviewed: 04/16/2023 [employer] Patient Education 2023 [email or web address]. Follow Up Care 10/08/2024 21:17:17 With:DOREEN HA Address: [address] [place] [address] [place] [phone] Business (1) When:10/15/2024 [facility] 03-14-2025 NoteED Patient Education Note Orthopedics Wrist Sprain, Adult [...] to move your wrist, but not very much.There may be a moderate amount of wrist [...] safe for you. General instructions ??? Take pzdr-owv-zsjmjbq and prescription medicines only as told by your health care provider. ??? Do not use any products that contain nicotine or tobacco, such as cigarettes, e-cigarettes, andchewing tobacco. These can delay healing. If you need help quitting, ask your health care provider. ??? Keep all follow-up visits. This is important. Contact a health care provider if: ??? Your pain, bruising, or swelling gets worse (more content not included)... [facility]03-[facility] Evaluation + Plan noteExtracted from: Title:ED Note Author:Darrell Eric Date :10/08/24 Left wrist sprain (S63.502A: Unspecified [...] Views Left XR Wrist 3+ Views Left [facility] 01-03-2025 History of Present illness Narrative* Familia Putnam DPM FACFAS - 07/30/2024 8:00 AM EST [...] Past Medical History: Diagnosis Date Bipolar disorder ([facility]) Fibromyalgia Gestational diabetes Medications: No current outpatient [...] < 3 seconds Digits 1-5 bilateral NEURO: [place] Jeremy 5.07 monofilament was intact B/L. Vibratory [...] me p.r.n. BUCK Reynoso documented in this encounterSaint John's Health [id number] History of Present illness Narrative* BUCK Reynoso [...] Past Medical History: Diagnosis Date Bipolar disorder ([facility]) Fibromyalgia Gestational diabetes Medications: No current outpatient [...] < 3 seconds Digits 1-5 bilateral NEURO: [place] Jeremy 5.07 monofilament was intact B/L. Vibratory [...] handout describing the device with detailed instructions. BUCK Reynoso documented in this encounterSaint John's Health [id number] Evaluation + Plan note Diagnostic Tests Pending * T3 Total 05/31/24 [facility] 11-03-2024 Hospital Discharge instructions Patient Education 05/30/2024 15:17:51 Nonspecific Chest Pain, Adult, Nebk-nv-Pvue Nonspecific Chest Pain Chest pain can be [...] Follow these instructions at home: Medicines Take xnzd-fpg-xadljai and prescription medicines only as told by [...] a heart-healthy diet. A diet and nutrition worker (dietitian) can help you to learn healthy [...] provider. Document Revised: 05/29/2023 Document Reviewed: 05/29/2023 [employer] Patient Education 2023 [email or web address]. Follow Up Care 05/30/2024 14:19:07 With:DOREEN HA Address: [facility] [address] [place] [phone] Business (1) When:06/02/2024 15:03:14 Comments:Call for diagnosis based follow up [facility] 11-03-2024 NoteED Patient Education Note [...] these instructions at home: Medicines ??? Take pnjg-cfk-ieegwpx and prescription medicines only as told by [...] a heart-healthy diet. A diet and nutrition worker (dietitian) can help you to learn healthy [...] provider. Document Revised: 05/29/2023 Document Reviewed: 05/29/2023 [employer] Patient Education ? 2023 [email or web address] 05-30-2024 Evaluation + Plan noteExtracted from: Title:ED Note Author:Greyson MONDRAGON, Miguelito Lemon te:05/30/24 Nonspecific chest pain (R07. 9: Chest pain, unspecified) Orders: cyclobenzaprine, 10 mg = 1 tab(s), Oral, TID, PRN for spasm, # 30 tab(s), Refills(s) 0, Pharmacy: [facility], 162, cm, 05/30/24 14:27:00 EST, Height/Length Dosing, 127, kg, 05/30/24 14:27:00 EST, Weight Dosing Basic Metabolic Panel Beta hCG Qual CBC w/ Auto Diff ED Cardiac Monitoring eGFR Oxygen Saturation Oxygen Therapy PT & PTT Saline Lock Insert Troponin 0 Hr. UA with Cult Rflx XR Chest Single View Diagnostic Tests Pending * UA with Cult Rflx 05/30/24 [facility] 10-23-2024 History of Present illness Narrative* Familia Putnam DPM FACFAS - 05/19/2024 1:50 PM EDT [...] numerous conservative therapies including: shoe gear modifications, zfjc-zco-kjgblep anti-inflammatory medications, tqse-efa-vhjyhlb orthotic devices to no avail. They rate the pain scale from 1-10 as an 8 with 10 being the most painful. Allergies: No Known Allergies Past Medical History: Past Medical History: Diagnosis Date Bipolar disorder ([facility]) Fibromyalgia Gestational diabetes Medications: No current outpatient [...] < 3 seconds Digits 1-5 bilateral NEURO: [place] Jeremy 5.07 monofilament was intact B/L. Vibratory [...] symptoms of post- static dyskinesia, 2.) Prevent vfv-lkcpnu-kjpeglx contracture of the Achilles tendon. 3.) Provide [...] Supplier Guidelines. BUCK Reynoso documented in this [facility]10-21-2024 Evaluation + Plan note Extracted from: Title:ED Note Author:Lukas Hrenandez PA-C te:05/17/24 Pharyngitis (J02.9: Acute ph aryngitis, unspecified) Orders: amoxicillin, 500 mg = 1 cap(s), Oral, TID, X 10 day(s), # 30 cap(s), Refills(s) 0, Pharmacy: [facility], 162, cm, 05/09/24 14:21:00 EDT, Height/Length Dosing, 121.6, kg, 05/09/24 14:21:00 EDT, Weight Dosing [facility] 10-21-2024 Hospital Discharge instructions Patient [...] Follow these instructions at home: Medicines Take lonu-kom-sirmplf and prescription medicines only as told by [...] and water are not available, use hand fiberglass fabricator. Make sure that all people in your [...] provider. Document Revised: 11/06/2021 Document Reviewed: 11/06/2021 [employer] Patient Education 2023 [email or web address]. Follow Up Care 05/17/2024 08:30:06 With:DOREEN HA Address: [address] [place] [address] [place] [address] Business (1) When:05/20/2024 08:41:55 [facility] 10-21-2024 NoteED Patient Education Note [...] these instructions at home: Medicines ? Take gesu-zfe-ngjysrn and prescription medicines only as told by [...] and water are not available, use hand fiberglass fabricator. Make sure that all people in your [...] serious problem that i (more content not included)...[facility] Hospital Discharge instructions Patient Education 05/09/2024 16:13:30 Dental Pain, Jbut-he-Czuk Dental Pain Dental pain is often a [...] Follow these instructions at home: Medicines Take hyue-bto-kadlrka and prescription medicines only as told by [...] damage to the area. Brushing your teeth [place] your teeth twice a day using a [...] right away. Call your local emergency services ([place] Do not wait to see [...] only when you eat or drink. Take froc-lpg-rjhzizz and prescription medicines only as told by your dentist. Watch your dental pain for any changes. Let your dentist know if symptoms get worse. This information is not intended to replace advice given to you by your health care provider. Make sure you discuss any questions you have with your health care provider. Document Revised: 04/18/2021 Document Reviewed: 04/18/2021 [employer] Patient Education 2023 [email or web address]. Follow Up Care 05/09/2024 14:12:51 With:Dental: [facility] [phone] Address:Unknown When:05/12/2024 16:12:50 With:Dental: [facility] [phone] Address:Unknown When:05/12/2024 16:12:50 With:Dental: [employer] [facility] [phone] Address:Unknown When:05/12/2024 16:12:49 Comments:Call to schedule a follow-up appointment with the dentists provided or the [facility] service dentist on the pamphlet in the next 2 to 3 days. Take the antibiotic as prescribed. Use the viscous lidocaine as needed for pain management along with Tylenol and ibuprofen. Return to ED with any new or worsening symptoms. With:DOREEN HA Address: [address] [place] [address] Business (1) When:Within 3 Day(s) [facility] 10-13-2024 NoteED Patient Education Note [...] these instructions at home: Medicines ? Take uspf-xkd-tiobpxz and prescription medicines only as told by [...] to the area. Brushing your teeth ? [place] your teeth twice a day using a [...] when you eat or drink. ? Take puyv-wui-pekkvjm and prescription medicines only as told by your dentist. ? Watch your dental pain for any changes. Let your dentist know if symptoms get worse. This information is not intended to replace advice given to you by your health care provider. Make sure you discuss any questions you have with your health care provider. Document Revised: 04/18/2021 Document Reviewed: 04/18/2021 [employer] Patient Education ? 2023 [email or web address] 05-09-2024 Evaluation + Plan noteExtracted from: Title:ED Note Author:Toro MONDRAGON, Lois Lemon te:05/09/24 Broken or cracked tooth, non traumatic [...] mL, Topical, QIDACHS, 100 mL, Refill(s) 0, [facility], 162, cm, 05/09/24 14:21:00 EDT, Height/Length Dosing, 121.6, kg, 05/09/24 14:21:00 EDT, Weight Dosing lidocaine topical, 200 mg, 10 mL, Soln-Oral, Oral, Once, Stop date 05/09/24 15:11:00 EDT, STAT, Start date 05/09/24 15:11:00 EDT penicillin V potassium, 500 mg = 1 tab(s), Oral, q6hr, X 7 day(s), # 28 tab(s), Refills(s) 0, Pharmacy: [facility] #[facility], 162, cm, 05/09/24 14:21:00 EDT, Height/Length Dosing, 121.6, kg, 05/09/24 14:21:00 EDT, Weight Dosing penicillin V potassium, 500 mg = 1 tab(s), Tab, Oral, Once, Stop date 05/09/24 15:18:00 EDT, STAT, Start date 05/09/24 15:18:00 EDT, 05/09/24 15:18:00 EDT [facility] [phone] Evaluation + Plan noteExtracted from: Title:ED Note Author:Aleta Oliveira DO Date :01/13/24 Sore throat (J02.9: Acute ph aryngitis, unspecified) Orders: dexamethasone, 10 mg = 2.5 tab(s), Tab, Oral, Once, Stop date 01/13/24 0:11:00 EDT, STAT, Start date 01/13/24 0:11:00 EDT, 01/13/24 0:11:00 EDT Group A Strep by PCR Rapid Strep w/rfx [facility]06-18-2024 Hospital Discharge instructions Patient Education 01/13/2024 00:47:46 Sore Throat, Uhfl-yw-Whvf Sore Throat When you have a sore [...] Follow these instructions at home: Medicines Take hsgd-how-eqhgiqq and prescription medicines only as told by [...] and water are not available, use hand fiberglass fabricator. Contact a doctor if: You have a [...] things can cause a sore throat. Take xoyd-jwp-uqiimov medicines only as told by your doctor. [...] provider. Document Revised: 10/10/2021 Document Reviewed: 10/10/2021 [employer] Patient Education 2022 goBramble. Follow Up Care 01/12/2024 23:47:01 With:DOREEN HA Address: [facility] [place] [address] Business (1) When:01/16/2024 Comments:You can use ibuprofen, Tylenol every 6 hours as needed for pain. Please follow-up with your primarycare doctor next 2 to 3 days for further evaluation management. Please return to the ED for any newor worsening symptoms. [facility]06-12-2024 Evaluation + Plan noteExtracted from: Title:ED Note Author:Bi Galeana DO Date: Knee sprain (S83.90XA: Sprai n of unspecified site of unspecified knee, initial encounter) Orders: Immobilizer XR Knee Complete 4+ Views Right [facility]06-12-2024 Hospital Discharge instructions Patient Education [...] provider. Document Revised: 04/19/2022 Document Reviewed: 04/19/2022 [employer] Patient Education 2022 goBramble. 01/07/2024 00:39:45 Knee Sprain, Adult Knee Sprain, [...] sitting or lying down. General instructions Take iazu-yjw-azxlkbr and prescription medicines only as told by [...] provider. Document Revised: 10/21/2022 Document Reviewed: 06/02/2020 [employer] Patient Education 2022 goBramble. Follow Up Care 2024 23:16:19 With:Khari Gomez Address: [address] [place] [address] [place] [phone] [facility] (1) When:01/10/2024 Comments:Call the office of [...] in the knee. Follow-up with orthopedic surgery. [facility]02-27-2024 Evaluation + Plan noteExtracted from: Title:ED Note Author:Lukas Hernandez PA-C te:09/23/23 Flu-like symptoms (R68.89: O ther general symptoms and signs) Vomiting (R11.10: Vomiting, unspecified) Orders: acetaminophen, 975 mg = 3 tab(s), Tab, Oral, Once, Stop date 09/23/23 11:04:00 EST, STAT, Start date 09/23/23 11:04:00 EST, 09/23/23 11:04:00 EST dextromethorphan-promethazine, 5 mL, Oral, q6hr for cough for 5 day(s), 200 mL, Refill(s) 0, [facility], 162, cm, 09/23/23 8:58:00 EST, Height/Length Dosing, 121.6, kg, 09/23/23 8:58:00 EST, Weight Dosing ondansetron, 4 mg = 1 tab(s), Tab-Dis, Oral, Once, Stop date 09/23/23 8:55:00 EST, STAT, Start date 09/23/23 8:55:00 EST, 09/23/23 8:55:00 EST ondansetron, 4 mg = 1 tab(s), Oral, TID, # 15 tab(s), Refills(s) 0, Pharmacy: [facility], 162, cm, 09/23/23 8:58:00 EST, Height/Length Dosing, 121.6, kg, 09/23/23 8:58:00 EST, Weight Dosing [facility]02-27-2024 Hospital Discharge instructions Patient Education [...] Medicines to relieve symptoms. These can include qeuh-tfm-aeokfjq medicine for pain and fever, medicines for cough or congestion, and medicines to relieve diarrhea. Antiviral medicines. These medicines are available only for certain types of viruses. Some viral illnesses can be prevented with vaccinations. A common example is the flu shot. Follow these instructions at home: Medicines Take btqo-lff-vcgmran and prescription medicines only as told by [...] and water are not available, use hand fiberglass fabricator. Avoid touching your nose, eyes, and mouth, [...] provider. Document Revised: 11/27/2020 Document Reviewed: 05/23/2020 [employer] Patient Education 2022 goBramble. Follow Up Care 09/23/2023 08:36:00 With:DOREEN HA Address: [address] [place] [address] [place] [address] Business (1) When:09/26/2023 11:03:08 [facility]01-27-2024 Hospital Discharge instructions Patient Education [...] pain. Follow these instructions at home: Take edoo-auz-uqajbrk and prescription medicines only as told by [...] provider. Document Revised: 10/22/2021 Document Reviewed: 10/22/2021 [employer] Patient Education 2022 goBramble. Follow Up Care 08/22/2023 22:12:06 With:DOREEN AH Address: [facility] [place] [address] Business (1) When:08/25/2023 Comments:Follow-up with your primary care provider in 3 to 5 days. If symptoms worsen, do not improve, or new symptoms arise please report back to emergency department for further evaluation. [facility]01-26-2024 Evaluation + Plan noteExtracted from: Title:ED Note Author:Miguelito Rubi PA-C te:08/22/23 Left otitis media (H66.92: O titis media, unspecified, left ear) Orders: amoxicillin-clavulanate, 1 tab(s), Oral, q12hr for 10 day(s), 20 tab(s), Refill(s) 0, [facility], 162, cm, 08/22/23 22:19:00 EST, Height/Length Dosing, 122.4, kg, 08/22/23 22:19:00 EST, Weight Dosing amoxicillin-clavulanate, 1 tab(s), Tab, Oral, Once, Stop date 08/22/23 22:24:00 EST, STAT, Start date 08/22/23 22:24:00 EST [facility]12-31-2023 Hospital Discharge instructions Patient Education 07/27/2023 21:45:13 Cellulitis, Adult, Svxp-wo-Hvio Cellulitis, Adult Cellulitis is a skin infection. [...] Follow these instructions at home: Medicines Take wycz-fjn-tbjizov and prescription medicines only as told by [...] provider. Document Revised: 04/25/2022 Document Reviewed: 04/25/2022 [employer] Patient Education 2022 goBramble. Follow Up Care 07/27/2023 21:00:37 With:DOREEN HA Address: [address] [place], [place] [address] [address] Business (1) When:07/30/2023 21:23:55 Comments:Take the antibiotics twice [...] return to ED for any worsening symptoms. [facility]12-31-2023 Evaluation + Plan noteExtracted from: Title:ED Note Author:Aleta Oliveira DO Date :07/27/23 Cellulitis (L03.90: Cellulit is, unspecified) Orders: ondansetron, 4 mg = 1 tab(s), Oral, q8hr, # 12 tab(s), Refills(s) 0, Pharmacy: [facility], 163, cm, 07/27/23 21:11:00 EST, Height/Length [...] tab(s), Oral, BID, 20 tab(s), Refill(s) 0, [facility], 163, cm, 07/27/23 21:11:00 EST, Height/Length Dosing, 123.4, kg, 07/27/23 21:11:00 EST, Weight Dosing [facility]12-29-2023 Hospital Discharge instructions Patient Education 07/25/2023 20:38:33 Cellulitis, Adult, Phdv-hh-Oisj Cellulitis, Adult Cellulitis is a skin infection. [...] Follow these instructions at home: Medicines Take qvaw-wnr-djuzieh and prescription medicines only as told by [...] provider. Document Revised: 04/25/2022 Document Reviewed: 04/25/2022 [employer] Patient Education 2022 goBramble. Follow Up Care 07/25/2023 20:22:08 With:DOREEN HA Address: [facility] [place] [address] [facility] (1) When:07/28/2023 20:34:28 Comments:Follow-up with your primary care provider in 3 to 5 days. If symptoms worsen, do not improve, or new symptoms arise please report back to emergency department for further evaluation. [facility]12-17-2023 Hospital Discharge instructions Patient Education [...] at pharmacies and retail stores. Eat bland, yhel-bp-abygdi foods in small amounts as you are [...] and water are not available, use hand fiberglass fabricator. Make sure that everyone in your household washes their hands frequently. Take ovad-phn-nwpxdua and prescription medicines only as told by [...] and water are not available, use hand fiberglass fabricator. Watch your condition for any changes and for signs of dehydration. Keep all follow-up visits. This is important. This information is not intended to replace advice given to you by your health care provider. Make sure you discuss any questions you have with your health care provider. Document Revised: 01/18/2022 Document Reviewed: 01/18/2022 [employer] Patient Education 2022 goBramble. Follow Up Care 07/13/2023 15:24:31 With:DOREEN HA Address: [place] [address] Business (1) When:Within 3 Day(s) [facility]12-17-2023 Evaluation + Plan note Diagnostic Tests Pending * Group A Strep by PCR 07/13/23 [facility]09-28-2023 Evaluation + Plan noteExtracted from: Title:ED Note Author:Lukas Hernandez PA-C te:04/24/23 Pharyngitis (J02.9: Acute ph aryngitis, unspecified) Orders: azithromycin, = 1 packet(s), Oral, As Directed, as directed on package labeling, X 5 day(s), # 6 tab(s), Refills(s) 0, Pharmacy: [facility], 163, cm, 04/24/23 9:56:00 EDT, Height/Length Dosing, 118, kg, 04/24/23 9:56:00 EDT, Weight Dosing dexamethasone, 10 mg = 2.5 mL, Injection, Oral, Once, Stop date 04/24/23 10:14:00 EDT, STAT, Start date 04/24/23 10:14:00 EDT, 04/24/23 10:14:00 EDT [facility]09-28-2023 Hospital Discharge instructions Patient Education [...] Follow these instructions at home: Medicines Take bibq-jfs-bchbxkx and prescription medicines only as told by [...] and water are not available, use hand fiberglass fabricator. Do not touch your eyes, nose, or [...] provider. Document Revised: 10/10/2021 Document Reviewed: 10/10/2021 [employer] Patient Education 2022 goBramble. Follow Up Care 04/24/2023 09:33:19 With:Daniella Floyd Address: [address] [place] [phone] Business (1) When:04/27/2023 10:16:16 [facility]08-03-2023 Evaluation + Plan noteExtracted from: Title:ED Note Author:Bi Galeana DO Date: Pain in back (M54.9: Dorsalg ia, unspecified) Orders: methylPREDNISolone, = 1 packet(s), Oral, As Directed, as directed on package labeling, X 6 day(s), # 21 tab(s), Refills(s) 0, Pharmacy: [facility], 163, cm, 02/27/23 10:56:00 EDT, Height/Length Dosing, 118, kg, 02/27/23 10:56:00 EDT, Weight Dosing [facility]08-03-2023 Hospital Discharge instructions Patient Education [...] as you can. Do not try to picking machine operator helper a heavy object that is far from [...] on shelves at waist level, and put medical office technician objects on lower or higher shelves. [...] provider. Document Revised: 11/05/2021 Document Reviewed: 11/05/2021 [employer] Patient Education 2022 [employer] 02/27/2023 11:02:10 Back Exercises Back Exercises [...] back becomes more flexible: 1.Get into a vuken-juu-mifnb position on a firm bed or the [...] provider. Document Revised: 01/08/2022 Document Reviewed: 09/26/2021 [employer] Patient Education 2022 goBramble. 02/27/2023 11:02:10 Acute Back Pain, Adult Acute [...] home: Managing pain, stiffness, and swelling Take ahmf-cpk-ocggkfv and prescription medicines only as told by [...] each day. Do not sit, drive, or inside contractor sales one place for more than 30 minutes [...] put less stress on your back. Take xzsh-pmk-bwhyhng and prescription medicines only as told by your health care provider, and apply heat or ice as told. This information is not intended to replace advice given to you by your health care provider. Make sure you discuss any questions you have with your health care provider. Document Revised: 10/05/2021 Document Reviewed: 10/05/2021 [employer] Patient Education 2022 goBramble. Follow Up Care 02/27/2023 10:50:37 With:ORLANDO PACE Address: [address] [place] [phone]- When:03/02/2023 11:01:33 Comments:Call the office of your [...] breath, or any new or worsening symptoms. [facility]06-20-2023 Evaluation + Plan noteExtracted from: Title:ED Note Author:Nabila Jane Date: Neck muscle spasm (M62.838: Other muscle spasm) Neck pain (M54.2: Cervicalgia) Orders: methocarbamol, 750 mg = 1 tab(s), Oral, TID, X 7 day(s), # 21 tab(s), Refills(s) 0, Pharmacy: [facility], 160, cm, 01/14/23 10:35:00 EDT, Height/Length Dosing, 121, kg, 01/14/23 10:35:00 EDT, Weight Dosing naproxen, 500 mg = 1 tab(s), Oral, BID, Take one tab by mouth two times a day, # 14 tab(s), Refills(s) 0, Pharmacy: [facility], 160, cm, 01/14/23 10:35:00 EDT, Height/Length Dosing, 121, kg, 01/14/23 10:35:00 EDT, Weight Dosing XR Spine Cervical 2 or 3 Views [facility]06-20-2023 Hospital Discharge instructions Patient Education [...] provider. Document Revised: 01/08/2022 Document Reviewed: 01/08/2022 [employer] Patient Education 2022 [employer] 01/14/2023 11:31:32 Muscle Cramps and Spasms, Hhga-cf-Twjb Muscle Cramps and Spasms Muscle cramps and [...] avoid intense exercise for several days. Take pjxp-txe-hhyotyv and prescription medicines only as told by [...] provider. Document Revised: 02/01/2022 Document Reviewed: 02/01/2022 [employer] Patient Education 2022 goBramble. Follow Up Care 01/14/2023 10:30:56 With:ORLANDO PACE Address: [address] [place] [phone]- When:Within 3 Day(s) [facility]06-16-2023 History of Present illness Narrative* [...] and related disorder (CMS/HCC) - Primary Schizophrenia ([facility]) Relevant Orders Referral to Psychiatry Referral to Psychology Follow Up In [facility] - PCP Fibromyalgia Anxiety Class 3 severe obesity due to excess calories with serious comorbidity and body mass index (BMI) of40.0 to 44.9 in adult ([facility]) Patient education provided. Stay current with age appropriate health maintenance as instructed. Appointment here or ER with new or worsening symptoms' Keep appropriate follow-up visit. Stay current with proper immunizations Report suicidal ideation report psychotic or manic symptoms Refer to psychiatry and psychology Discussed at length with patient and mom Diet and weight loss also suggested 3-month follow-up visit [facility] Work Phone: [phone]) 225-466905-08-2023 Evaluation + Plan noteExtracted from: Title:ED Note Author:Eric Ramírez DO Date :12/02/22 Foot sprain (S93.609A: Unspe cified sprain of unspecified foot, initial encounter) Orders: acetaminophen, 975 mg = 3 tab(s), Tab, Oral, Once, Stop date 12/02/22 3:25:00 EDT, STAT, Start date 12/02/22 3:25:00 EDT, 12/02/22 3:25:00 EDT XR Foot 3+ Views Left [facility]05-08-2023 Hospital Discharge instructions Patient Education [...] or evens your foot. General instructions Take jses-orv-hpgattw and prescription medicines only as told by [...] provider. Document Revised: 11/03/2020 Document Reviewed: 11/03/2020 [employer] Patient Education 2022 goBramble. Follow Up Care 12/02/2022 02:24:03 With:ORLANDO PACE Address: [address] [place] [phone]- When:Within 3 Day(s) [facility]05-04-2023 Hospital Discharge instructions Patient Education 11/27/2022 23:06:01 Abdominal Pain, Adult, Pwvp-ki-Rrpt Abdominal Pain, Adult Many things can cause belly (abdominal) pain. Most times, belly pain is not dangerous. Many cases of belly pain can be watched and treated at home. Sometimes, though, belly pain is serious. Your doctor will try to find the cause of your belly pain. Follow these instructions at home: Medicines Take wrqs-szk-jsdijfh and prescription medicines only as told by [...] your belly pain for any changes. Take xmoq-fzf-ufkjhbh and prescription medicines only as told by [...] provider. Document Revised: 11/22/2019 Document Reviewed: 11/22/2019 [employer] Patient Education 2022 goBramble. Follow Up Care 11/27/2022 20:26:43 With:Evan Moore Address:Unknown When:11/30/2022 With:ORLANDO PACE Address: [address] [place] [address]- When:11/30/2022 Comments:Take the antibiotics 3 times a day as prescribed to completed the course. You can take the naproxenevery 12 hours as needed for pain. Please call Dr. Perez's office tomorrow to schedule a follow-up to make sure things are getting better. Please return to the ED for any new or worsening symptoms. [facility]05-03-2023 Evaluation + Plan noteExtracted from: Title:ED Note Author:Aleta Oliveira DO Date :11/27/22 Abdominal pain, acute (R10.9 : Unspecified abdominal pain) Orders: cephalexin, 500 mg = 1 cap(s), Cap, Oral, Once, Stop date 11/27/22 22:41:00 EDT, STAT, Start date 11/27/22 22:41:00 EDT, 11/27/22 22:41:00 EDT cephalexin, 500 mg = 1 cap(s), Oral, TID, X 5 day(s), # 15 cap(s), Refills(s) 0, Pharmacy: [facility] #[facility], 160, cm, 11/27/22 20:40:00 EDT, Height/Length Dosing, 119.2, kg, 11/27/22 20:40:00 EDT, Weight Dosing ketorolac, 30 mg = 1 mL, Injection, IV Push, Once, Stop date 11/27/22 22:41:00 EDT, STAT, Start date 11/27/22 22:41:00 EDT, 11/27/22 22:41:00 EDT naproxen, 500 mg = 1 tab(s), Oral, BID, PRN for pain, # 20 tab(s), Refills(s) 0, Pharmacy: [facility], 160, cm, 11/27/22 20:40:00 EDT, Height/Length Dosing, 119.2, kg, 11/27/22 20:40:00 EDT, Weight Dosing Automated Diff Basic Metabolic Panel CBC w/ Auto Diff CT Abdomen/Pelvis w/o Contrast eGFR Hepatic Function Panel UA With Cult Reflex [facility]04-17-2023 Hospital Discharge instructions Patient Education 11/11/2022 20:33:22 Edema, Yfsr-ny-Anyd Edema Edema is when you have too [...] much fluid you drink (fluid restriction). Take kzei-luo-yapykca and prescription medicines only as told by [...] 12/30/2008 Document Revised: 07/17/2018 Document Reviewed: 08/01/2017 [employer] Patient Education 2020 [employer]ramble. Follow Up Care 11/11/2022 19:33:12 With:Evan Moore Address: [facility] [address] [place] [address]- Business (1) When:11/14/2022 20:27:58 Comments:Follow-up with Dr. Moore for further evaluation of your symptoms. With:ORLANDO KSMIKHAIL Address: [address] [place] [address]- When:11/14/2022 20:27:51 Comments:Follow-up with your primary care provider in 3 to 5 days. If symptoms worsen, do not improve, or new symptoms arise please report back to emergency department for further evaluation. [facility]04-17-2023 Evaluation + Plan noteExtracted from: Title:ED Note Author:Miguelito Rubi PA-C te:11/11/22 Leg swelling (M79.89: Other specified soft tissue disorders) [facility]04-14-2023 Evaluation + Plan noteExtracted from: [...] Adult Author:Fernie Barrera Jr., DO Date:11/06/22 Plan [place] [employer]hesi[employer] (ASA) physical status classification: Class II. Anesthetic Preoperative Plan: Anesthesia. Regional Spinal. Extracted from: Title:OB Admission H&P L&D/ PreOp * Author:Evan Abarca MD Date:11/06/22 Impression and Plan Diagnosis Gestational diabetes mellitus in childbirth, insulin controlled (TQM78-FA O24.424, Discharge, Medical). Encounter for supervision of other normal , third trimester (SFI60-CY Z34.83, Discharge, Medical). Encounter for sterilization (DJL08-LB Z30.2, Discharge, Medical). 38 weeks gestation of (YVU64-SD Z3A.38, Discharge, Medical). condition: Stable. Maternal condition: Stable. Plan Admit. [facility]04-14-2023 Hospital Discharge instructions Patient Education [...] and water are not available, use hand fiberglass fabricator. ?If you have a dressing, change it [...] this until your incision heals. Medicines Take islr-ich-mfrazki and prescription medicines only as told by [...] 04/05/2003 Document Revised: 01/20/2019 Document Reviewed: 01/20/2019 [employer] Patient Education 2020 goBramble. Follow Up Care 10/24/2022 10:06:20 With:Evan Moore Address: [address] [place] [address] [address] [facility] (1) When:6 weeks Comments:Call Dr if fever>100.5 F, heavy bleedingCall for any problems. [facility]04-08-2023 Hospital Discharge instructions Patient Education [...] including vitamins, herbs, eye drops, creams, and kdlg-zvq-ghwezby medicines. Any problems you or family members [...] incisions will be closed with stitches (sutures). [place], skin glue, or adhesive strips may also [...] 07/14/2006 Document Revised: 01/18/2019 Document Reviewed: 01/18/2019 [employer] Patient Education 2020 [employer]. Follow Up Care 11/02/2022 18:12:22 With:Follow up with primary care provider Address:Unknown When: Unknown Comments:Call for any problems.Call Dr if fever>100.5 F, heavy bleedingCall for severe abdominal painCallphysician for heavy vaginal bleedingReturn for contractions closer, longer, harderReturn for decreased movementReturn if ruptured membranes or vaginal bleedingC-Section is scheduled for November 06 at 12:00 p.m. [facility]03-31-2023 Hospital Discharge instructions Follow Up Care 10/25/2022 14:33:08 With:Evan Moore Address:Unknown When:10/29/2022 Comments:Call for any problems.Return for contractions closer, longer, harderReturn for decreased movementReturn if ruptured membranes or vaginal bleeding [facility]03-29-2023 Hospital Discharge instructions Follow Up Care 10/23/2022 14:40:42 With:Evan Moore Address:Unknown When:10/30/2022 14:00:00 Comments:Return for decreased movementReturn for contractions closer, longer, harderReturn if rupturedmembranes or vaginal bleeding [facility]03-27-2023 Hospital Discharge instructions Follow Up Care 10/20/2022 22:10:09 With:Evan Moore Address:Unknown When:10/23/2022 Comments:Appointment has already been scheduledCall for severe abdominal painReturn for contractions closer,longer, harderReturn for decreased movementReturn if ruptured membranes or vaginal bleeding [facility]03-26-2023 Hospital Discharge instructions Patient Education [...] problems with bowel movements. Having practice contractions ([place] Watson contractions) that occur at irregular (unevenly [...] 12/19/2017 Document Revised: 04/13/2018 Document Reviewed: 12/19/2017 [employer] Patient Education 2020 [employer]. Follow Up Care 10/20/2022 13:33:25 With:Evan Moore Address:Unknown When:1 to 2 days Comments:Appointment has already been scheduledKEEP NEXT NST AND APPPOINTMNET WITH DR. MOORE [facility]03-26-2023 Evaluation + Plan note Diagnostic Tests Pending * Urine Culture 10/20/22 [facility]03-14-2023 Hospital Discharge instructions Follow Up Care 10/08/2022 07:51:29 With:Evan Moore Address:Unknown When:10/16/2022 Comments:Call for any problems.Call for fever > 100.5 FCall for severe abdominal painCall physician for heavy vaginal bleedingCall physician if symptoms worsenReturn for contractions closer, longer, harderReturn for decreased movementReturn if ruptured membranes or vaginal bleeding [facility]08-29-2022 Evaluation + Plan note Diagnostic Tests Pending * Urine Culture 03/25/22 * Hepatitis B Surface Antigen 03/25/22 * RPR with Conf Rfx 03/25/22 * Rubella Antibody IgG 03/25/22 * Rubella Antibody IgM 03/25/22 * HIV Screen 4th Generation wRfx 03/25/22 [facility] Future [facility]ments Appointment Date:11/06/2022 12:00:00 PM Scheduled Provider: Location:[facility] Surgical Services Appointment Type:[facility]gery [facility] Future Appointments Appointment Date:11/06/2022 12:00:00 PM Scheduled Provider: Location:[facility] Surgical Services Appointment Type:Surgery FT Diagnostic Tests Pending * Urine Culture 11/02/22 [facility] Future Appointments Appointment Date:07/16/2024 11:30:00 AM Scheduled Provider: Location:.[place]ICAL [place] Appointment Type:PT 45 (FT) Appointment Date:07/19/2024 09:00:00 AM Scheduled Provider: Location:.[place] Appointment Type:PT 45 (FT) Appointment Date:07/23/2024 09:15:00 AM Scheduled Provider: Location:[place] Appointment Type:PT 45 (FT) Appointment Date:07/26/2024 09:30:00 AM Scheduled Provider: Location:.[place] Appointment Type:PT 45 (FT) Appointment Date:07/30/2024 09:15:00 AM Scheduled Provider: Location:[place] Appointment Type:PT 45 (FT) Appointment Date:08/04/2024 02:00:00 PM Scheduled Provider: Location:.[place] Appointment Type:PT Re-Eval 30 (FT) [facility] Evaluation noteNo assessment information available [facility] Work Phone: Evaluation note* Diagnosis Bipolar and related disorder (CMS/HCC)- Primary Schizophrenia, unspecified type (CMS/HCC) Fibromyalgia Unspecified myalgia and myositis Anxiety Anxiety state, unspecified Class 3 severe obesity due to excess calories with serious comorbidity and body mass index (BMI) of 40.0 to 44.9 in adult (CMS/HCC) documented in this encounter [facility] Work Phone: Evaluation note* Diagnosis Calcaneal spur of foot, right- Primary Plantar fasciitis Plantar fascial fibromatosis Calcaneal spur, left foot Gastrocnemius equinus of left lower extremity Gastrocnemius equinus of right lower extremity documented in this encounter [facility] HealthcareEvaluation note* Diagnosis Gastrocnemius equinus of right lower extremity- Primary Plantar fasciitis Plantar fascial fibromatosis Gastrocnemius equinus of left lower extremity Calcaneal spur, left foot Calcaneal spur of foot, right documented in this encounter [facility] HealthcareEvaluation note* Diagnosis Plantar fasciitis- Primary Plantar fascial fibromatosis Gastrocnemius equinus of left lower extremity Gastrocnemius equinus of right lower extremity documented in this encounter [facility] HealthcareEvaluation note* Diagnosis Plantar fasciitis- Primary Plantar fascial fibromatosis Gastrocnemius equinus of left lower extremity Gastrocnemius equinus of right lower extremity documented in this encounter [facility] HealthcareHistory of Present illness Narrative* Familia Putnam DPM FACFAS - 06/02/2024 1:50 PM EST Images from the original note were not included. Patient: Scarlet Durand : 2000 PCP: [facility] Provider MD Vanessa SUBJECTIVE This is a [...] Past Medical History: Diagnosis Date Bipolar disorder ([facility]) Fibromyalgia Gestational diabetes Medications: No current outpatient [...] < 3 seconds Digits 1-5 bilateral NEURO: [place] Jeremy 5.07 monofilament was intact B/L. Vibratory [...] orthotic devices. BUCK Reynoso documented in this [facility]spital course Narrative No data available for this section [facility] No data available for this section [facility] Additional Instructions Increase fluid intake. Empty bladder frequently.[facility] Work Phone: Progress note No data available for this section [facility] (n[facility])* Consultation (Routine) - Authorized Specialty Diagnoses / Procedures Referred By Mike t Referred To Contact Primary Care Diagnoses Schizophrenia, unspecified type (CMS/HCC) Procedures Follow Up In Advanced Primary Care - PCP Orlando Pace MD [address] [address] Referral ID Status Reason Start Date Expiration Date V isits Requested Visits Authorized [id number] Authorized 01/10/2023 07/09/2023 1 1 * Consultation (Routine) - Authorized Specialty Diagnoses / Procedures Referred By Contac t Referred To Contact Psychology Diagnoses Schizophrenia, unspecified type (CMS/HCC) Procedures [place] OFFICE/OUTPATIENT [facility] 60-74 MINUTES Orlando Pace MD [address] [address] Referral ID Status Reason Start Date Expiration Date Visits Requested Visits Authorized [id number] Authorized Specialty Services Required 01/10/2023 07/09/2023 1 1 * Consultation (Routine) - Authorized Specialty Diagnoses / Procedures Referred By Contac t Referred To Contact Psychiatry Diagnoses Schizophrenia, unspecified type (CMS/HCC) Procedures [place] OFFICE[place] [facility] 60-74 MINUTES Orlando Pace MD [address] [address] Referral ID Status Reason Start Date Expiration Date Visits Requested Visits Authorized [id number] Authorized Specialty Services Required 01/10/2023 07/09/2023 1 1 [facility] Work Phone: Summary Purpose Family History No [...] History Records FoundNo Family History Records Found Advance Directives No Advanced Directives Records FoundDocuments on File Type Date Recorded 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 * Amy Dermatitis (Venezuelan) * UTI (Urinary Tract Infection): Female (Venezuelan) documented in this encounter* Attachments The following attachments cannot be sent through Care Everywhere. * Trichomoniasis ([place]an) * UTI (Urinary Tract Infection): Female ([place]an) documented in this encounter* Attachments The following attachments cannot be sent through Care Everywhere. * Back Pain (Venezuelan) * Sciatica (Venezuelan) * Dysuria (Venezuelan) * Constipation (Venezuelan) * Abdominal Pain (Venezuelan) * Nausea and Vomiting (Venezuelan) documented in this encounter Assessments Diagnosis Acute [...] 30 wks preg contractions contractions,37 wks preg Chief Complaint Admit Date Unknown October 16, 2024 11: 15am Additional Source Comments INFORMATION SOURCE (unrecogn ized section and content) DATE CREATED AUTHOR 01/20/2018 [facility] DATE CREATED AUTHOR AUTHOR'S ORGANIZ ATION [facility] DATE CREATED AUTHOR AUTHOR'S ORGANIZ ATION 09/28/2020 [facility] DATE CREATED AUTHOR AUTHOR'S ORGANIZ ATION 12/29/2020 [facility] DATE CREATED AUTHOR AUTHOR'S ORGANIZ ATION 12/13/2021 [facility] DATE CREATED AUTHOR AUTHOR'S ORGANIZ ATION 01/10/2022 [facility] DATE CREATED AUTHOR AUTHOR'S ORGANIZ ATION 09/04/2022 [facility] DATE CREATED AUTHOR AUTHOR'S ORGANIZ ATION 10/20/2022 [facility] ical Center DATE CREATED AUTHOR AUTHOR'S ORGANIZ ATION 01/14/2024 [place] [facility] ical Center DATE CREATED AUTHOR AUTHOR'S ORGANIZ ATION 05/31/2024 [place] [facility] ical Center DATE CREATED AUTHOR AUTHOR'S ORGANIZ ATION 06/01/2024 [place] [facility] Center DATE CREATED AUTHOR AUTHOR'S ORGANIZ ATION [facility]/04/2024 [facility] DATE CREATED AUTHOR AUTHOR'S ORGANIZ ATION 08/06/2024 [facility] DATE CREATED AUTHOR AUTHOR'S ORGANIZ ATION 09/10/2024 [place] [facility] ical Center DATE CREATED AUTHOR AUTHOR'S ORGANIZ ATION 09/11/2024 [facility] ical Center DATE CREATED AUTHOR AUTHOR'S ORGANIZ ATION 10/19/2024 [facility] y[facility] DATE CREATED AUTHOR AUTHOR'S ORGANIZ ATION 11/01/2024 [place] [facility] DATE CREATED AUTHOR AUTHOR'S ORGANIZ ATION 11/05/2024 [place] [facility] ical Center Reason for Visit (unrecogniz [...] Status: Active Member Role Status Dates Shabbir Mi Primary Care Provider Active Team Status: Inactive Member Role Status Dates Shabbir Mi Primary Care Provider Active Gary Candelario PA-C [...] MD Admit Provider, Attending Provider 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 Start Date End Date Unallocated, Annamarie Ambriz MD [facility] [address] [facility] [place] [address] PCP - General 12/18/22 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 [facility]. provides no warranty or guarantee of the accuracy or completeness of information in this document.
[2024-11-07 16:30] VITALS: BP 134/90; PULSE 82; TEMP 36.7; O2SAT 100; BMI 44.6
[2024-11-07 16:48] LABS: Bilirubin Urine NEGATIVE (NEGATIVE); Blood Urine NEGATIVE (NEGATIVE); Clarity Urine SL CLOUDY (CLEAR); Color Urine LT. YELLOW (YELLOW); Glucose Urine UA NEGATIVE (NEGATIVE); Ketones Urine NEGATIVE (NEGATIVE); Leukocyte Esterase Urine NEGATIVE (NEGATIVE); Nitrite Urine POSITIVE (NEGATIVE); Protein Urine NEGATIVE (NEG/TRACE); Specific Gravity Urine >=1.030 (1.005-1.025); Urobilinogen Urine 0.2 EU/dL (0.2-1.0)
--- NOTE | 2024-11-07 16:54 | ED_ITS ---
HPI HPI - General Adult General Chief complaint: Abdominal Pain Stated complaint: ABDOMINAL AND BACK PAIN Time Seen by Provider: 11/07/24 16:40 Source: patient Mode of arrival: walk-in History of Present Illness HPI narrative: Patient is a 24-year-old female who is presenting to the ER with chief complaint of urinary frequency and mild dysuria that has been going on for the past 2 or 3 days. Patient has no vaginal bleeding discharge. Patient states she is not , her tubes are tied. Patient states that she has not often sexually active with her as well secondary to 4 kids at home. She has mild bilateral lower back pain. No flank pain. No abdominal pain, nausea, vomiting, no other acute complaints. All systems are negative except as noted/marked. All systems reviewed and otherwise negative. Nurses note and vital signs reviewed and patient is not hypoxic. General: The patient appears well and in no apparent distress. Patient is resting comfortably on cart. Patient is not toxic, lethargic, or listless Skin: Warm, dry, no pallor noted. There is no rash noted. No petechiae, purpura. No rash to lower back. Head: Normocephalic, atraumatic Eye: Normal conjunctiva, no drainage, EOMI. PERRL Ears, Nose, Mouth, and Throat: oral mucosa is moist. Nares patent. Mouth without vesicles. Cardiovascular: Regular Rate and Rhythm, no murmur, gallop, rub Respiratory: Patient is in no distress, no accessory muscle use, lungs are clear to auscultation, no wheezing, rales or rhonchi Back: Patient has mild tenderness to palpation to bilateral lumbar soft tissue. Negative Zack's test bilateral. No rash. No flank pain bilateral. Non- tender, no CVA tenderness bilaterally to percussion. No CT LS midline pain GI: No suprapubic tenderness to palpation, no flank pain bilateral, soft, obese, no tenderness to palpation, no masses appreciated. No rebound, guarding, or rigidity noted. No distention Musculoskeletal: Patient has full range of motion of all of the extremities, no motor, sensory, or focal neurological deficits Neurological: A&O x4, normal speech Psychiatric: Cooperative Related Data Previous Rx's ?Medication ?Instructions ?Recorded nitrofurantoin 100 mg PO BID 7 days #14 caps 11/07/24 monohydrate/macrocrystals 100 mg capsule (Macrobid) Allergies Allergy/AdvReac Type Severity Reaction Status Date / Time No Known Drug Allergies Allergy Verified 07/27/23 14:50 Opioid HPI Opioid Management Most Recent Opioid Data: No Data to Display PFSH PFSH Social History Little interest or pleasure in doing things: not at all Feeling down, depressed, or hopeless: not at all Exam Constitutional Vital Signs, click to edit/add: Last Vital Signs Temp 98.0 F 11/07/24 16:30 Pulse 82 11/07/24 16:30 Resp 16 11/07/24 16:30 BP 134/90 11/07/24 16:30 Pulse Ox 100 11/07/24 16:30 O2 Del Method Room Air 11/07/24 16:30 Course Vital Signs Vital signs: Vital Signs Temperature 98.0 F 11/07/24 16:30 Pulse Rate 82 11/07/24 16:30 Respiratory Rate 16 11/07/24 16:30 Blood Pressure 134/90 11/07/24 16:30 Pulse Oximetry 100 11/07/24 16:30 Oxygen Delivery Method Room Air 11/07/24 16:30 Temperature 98.0 F 11/07/24 16:30 Pulse Rate 82 11/07/24 16:30 Respiratory Rate 16 11/07/24 16:30 Blood Pressure 134/90 11/07/24 16:30 Pulse Oximetry 100 11/07/24 16:30 Oxygen Delivery Method Room Air 11/07/24 16:30 Medical Decision Making MDM Narrative Medical decision making narrative: Patient seen and examined: Urine sample, patient states that she is fixed and tubes tied and she is not because she is not having intercourse with secondary to 4 kids . is at bedside. Differential diagnosis includes but is not limited to: Diagnostics and management: Patient will have laboratory studies Relevant laboratory interpretation: Urine shows positive nitrites Shared decision making: I discussed with the patient the necessary laboratory findings and radiological findings. Social barriers to healthcare: There are no food insecurities, there is no issue with transportation, there are no insurance barriers. Disposition: I discussed with the patient having multiple urinary tract infections. Patient has never seen urology. Patient is referred and given information to Dr. Coronel. Patient states that she is not typically sexually active with her , second of 4 kids. Patient is retired, patient did not want check. Patient understands she should not be getting multiple urinary tract infections every year. Patient is to increase fluids at home. Patient was prescribed Macrobid. Patient was on Cipro last urinary tract infection last month. She has no fever or chills. Mild back pain. Patient will follow-up with PCP for reevaluation next 2 or 3 days. Lab Data Labs: Lab Results 11/07/24 Range/Units 16:35 Urine Color Lt. yellow (YELLOW) Urine Clarity Sl cloudy (CLEAR) Urine pH 6.0 (5.0-9.0) Ur Specific [place] >=1.030 A (1.005-1.025) Urine Protein Negative (NEG/TRACE) mg/dL Urine Glucose (UA) Negative (NEGATIVE) mg/dL Urine Ketones Negative (NEGATIVE) mg/dL Urine Occult Blood Negative (NEGATIVE) Urine Nitrite Positive A (NEGATIVE) Urine Bilirubin Negative (NEGATIVE) Urine Urobilinogen 0.2 (0.2-1.0) EU/dL Ur Leukocyte Esterase Negative (NEGATIVE) Urine RBC 0-2 (0-2) #/HPF Urine WBC 0-2 A (NONE SEEN) #/HPF Ur Squamous Epith Cells Moderate A (NONE/RARE) #/LPF Urine Crystals None seen (None Seen) #/HPF Urine Bacteria Large A (NONE SEEN) #/HPF Urine Casts None seen (NONE SEEN) #/LPF Urine Mucus None seen (NONE SEEN) Ur Culture Indicated? Yes-[facility] Discharge Plan Discharge Chief Complaint: Abdominal Pain Clinical Impression: UTI (urinary tract infection), Lower back pain Patient Disposition: Home, Self-Care Time of Disposition Decision: 17:08 Condition: Fair Prescriptions / Home Meds: New nitrofurantoin monohyd/m-cryst [Macrobid] 100 mg capsule 100 mg PO BID 7 Days Qty: 14 0RF Rx Instructions: must administer with a meal/food Print Language: Swedish Instructions: Urinary Tract Infection in Women (ED), Acute Low Back Pain (ED) Additional Instructions: As discussed at bedside, you should not continue to have chronic UTIs. Urinate before and after intercourse as discussed. You are referred to urology for further evaluation why you are getting so many UTIs. Finish antibiotics, increase fluids, especially cranberry juice. Follow-up with PCP for any other acute concerns. Referrals: Calin Coronel MD [Physician] - 1 week KIMBERLEE HA [Primary Care Provider] - 1 week
[2024-11-07 16:56] LABS: Bacteria Urine LARGE #/HPF (NONE SEEN); Cast Seen? NONE SEEN #/LPF (NONE SEEN); Crystals Seen? None Seen #/HPF (None Seen); Mucus Urine NONE SEEN (NONE SEEN); RBC Urine 0-2 #/HPF (0-2); Squamous Epithelial Cell Urine MODERATE #/LPF (NONE/RARE); Urine Culture Indicated YES-FRMC; WBC Urine 0-2 #/HPF (NONE SEEN)
== END 2024-11-07 17:16 | disposition home or self-care (01) ==
PROVIDERS: Emergency Provider Emergency Medicine; PCP Nurse Practitioner Family
DX: N39.0 Urinary tract infection, site not specified (principal); M54.50 Low back pain, unspecified; Z87.440 Personal history of urinary (tract) infections; Z98.51 Tubal ligation status
CPT/HCPCS: 81001; 87086; 87088; 87186; 99283

== ENCOUNTER 2025-03-22 11:01 | Emergency (ER) | payer OTHER, SELFPAY ==
[2025-03-22] VITALS (12 sets, daily range): BP systolic 109–125; BP diastolic 72–77; PULSE 66–91; TEMP 37.3; O2SAT 99–100; BMI 44.4
--- OUTSIDE RECORDS SUMMARY | 2025-03-22 11:13 | XMS_ITS | CCD ---
Author Organization [facility] Care Team Providers Care Operations Support Specialist Name Role Phone YURI PHILIP Unavailable UnavailYURI Ramirez Unavailable Unavaila dick WOODSVENTURA, VESELIN Unavailable Unavailable [...] Jr Emergency Provider GIANCARLO Candelario Emergency Provider [phone] Shabbir Mi Primary Care Provider MD Evan [...] Dr. Orlando Lozano Primary Care Unava ilable [facility], Dr. Orlando Lozano Attending [facility], Dr. Orlando Lozano Referring Unava ilable Self, Referral Referring Unavailable Musat, Jp Hoda Richards Attending Unavailernesto Lipscomb, Dr. Mattie Weir Attending U brittney Lipscomb, Dr. Mattie Weir Primary Care U brittney PACE, ORLANDO Solorzano Primary Care Physician Unava ilable Shabbir Mi Primary Care Provider MD Evan Moore Attending Provider [phone] NO FAMILY, PHYSICIAN Primary Care Provider Unava ilable NON STAFF Primary Care Provider UnavailDO Sanaz Weldon Attending Provider MD Evan Moore Admit Provider MD Evan Moore Admit Provider Mattie Lipscomb MD Unavailable Orlando Pace MD Primary Care Provider DOREEN HA Primary Care Physician [phone] LELAND, DOREEN Primary Care Unavailable Dokken, DO [...] Provi salvador LELAND, DOREEN Primary Care Unavailable Hajdari, Astrit H Attending Unavailable Bi Galeana Attending Unavailable LELAND DOREEN Primary Care Unavailable Bi Galeana Attending Unavailable LELAND, DOREEN Primary Care Unavailable LELAND, DOREEN Primary Care Unavailable LELAND, DOREEN Attending Unavailable LELAND, DOREEN Admitting Unavailable Ashley Faustin Attending Unavailable LELAND, DOREEN Primary Care Unavailable LLEAND, DOREEN Attending Unavailable LELAND, DOREEN Primary Care Unavailable LELAND, DOREEN Admitting Unavailable Papi CRAWFORD Attending Unavailable LELAND, DOREEN Primary Care Unavailable Triny Ray MD Attending Provider LELAND, DOREEN Primary Care Unavailable Luz Marina FREGOSO Attending Unavailable LELAND, DOREEN Primary Care Unavailable Blake Rivera Attending Unavailable LELAND, DOREEN Primary Care Unavailable Eric Ramírez Attending Unavailable LELAND, DOREEN Primary Care Unavailable Luz Marina FREGOSO Attending Unavailable Blake Rivera Attending Unavailable LELAND, DOREEN Primary Care Unavailable Papi Portillo DO Attending Provider Triny Ray Attending Unavailable Triny Ray Admitting Unavailable Papi Portillo Admitting Unavailable Papi Portillo Attending Unavailable JUAN HA Attending JUAN Whitfield Primary Care JUAN Whitfield Admitting Vinny HA, JUAN Matt Primary Care Papi Zapata Attending Unavailable JUAN HA Primary Care Luz Marina Sánchez Attending Unavailable Luz Marina FREGOSO Attending Unavailable JUAN HA Primary Care Paolavai karla HA, JUAN Matt Referring JUAN Whitfield Attending JUAN Whitfield Primary Care DOREEN Helms Attending Unavailable FAMILIA KNIGHT Attending Unavailable FAMILIA KNIGHT Attending Unavailable FAMILIA KNIGHT Attending Unavailable FAMILIA KNIGHT Attending Unavailable Medications Current Medications Medication Drug Class(es) Dates Sig (Normalized) Sig (Original) acetaminophen 325 mg / butalbital 50 mg / caffeine 40 mg oral tablet (2 sources) Barbiturate, Central Nervous System Stimulant, Methylxanthine Start: [...] days 30 tablet 0 01/04/2020 01/14/2020 Active [id number] 200 actuat albuterol 0.09 mg/actuat metered dose inhaler (2 sources) beta2-Adrenergic Agonist Start: 06-29-2024 Albuterol Sulfate 90 mcg/actuation HFA aerosol inhaler Active INHALATION June 29, 2024 1:00am ALPRAZolam 0.25 mg oral tablet (2 sources) Benzodiazepine Start: 06-29-2024 take 1 tablet by [...] day(s), # 30 cap(s), Refills(s) 0, Pharmacy: [facility] #37, 162, cm, 05/09/24 14:21:00 EDT, Height/Length Dosing, 121.6, kg, 05/09/24 14:21:00 EDT, Weight Dosing Start Date: 05/17/24 Stop Date: 05/27/24 Status: Ordered amoxicillin 875 mg / clavulanate 125 mg oral tablet (9 sources) Penicillin-class Antibacterial Start: 08-22-2023 End: 09-01-2023 Augmentin 875 mg-125 mg Tab 1 tab(s), Oral, q12hr for 10 day(s), 20 tab(s), Refill(s) 0, [facility], 162, cm, 08/22/23 22:19:00 EST, Height/Length Dosing, 122.4, kg, 08/22/23 22:19:00 EST, Weight Dosing Start Date: 08/22/23 Stop Date: 09/01/23 Status: Ordered Start: 04-07-2021 End: 04-16-2022 take 1 tablet by mouth twice daily Amoxicillin-Pot Clavulanate (Augmentin) 875-125 mg tablet Discontinued 1 TAB PO Twice daily 16 05April 07, 2021 12:00am April 16, 2022 4:21am atenolol 25 mg oral tablet (2 sources) beta-Adrenergic Cedric Start: 06-29-2024 take 1 tablet [...] day(s), # 6 tab(s), Refills(s) 0, Pharmacy: [facility], 163, cm, 04/24/23 9:56:00 EDT, Height/Length Dosing, 118, kg, 04/24/23 9:56:00 EDT, Weight Dosing Start Date: 04/24/23 Stop Date: 04/29/23 Status: Ordered busPIRone hydrochloride 5 mg oral tablet (2 sources) Start: 06-29-2024 take 1 tablet by mouth [...] day(s), # 28 cap(s), Refills(s) 0, Pharmacy: [facility], 163, cm, 07/25/23 20:26:00 EST, Height/Length Dosing, 123.3, kg, 07/25/23 20:26:00 EST, Weight Dosing Start Date: 07/25/23 Stop Date: 08/01/23 Status: Ordered Start: 11-27-2022 End: 12-02-2022 take 1 capsule by mouth three times daily Keflex 500 mg Cap 500 mg = 1 cap(s), Oral, TID, X 5 day(s), # 15 cap(s), Refills(s) 0, Pharmacy: [facility], 160, cm, 11/27/22 20:40:00 EDT, Height/Length Dosing, 119.2, kg, 11/27/22 20:40:00 EDT, Weight Dosing Start Date: 11/27/22 Stop Date: 12/02/22 Status: Ordered ciprofloxacin 500 mg oral tablet (2 sources) Quinolone Antimicrobial Start: 12-28-2024 End: 01-02-2025 take 1 tablet by mouth in the morning ciprofloxacin (Cipro) 500 MG tablet Indications: Abnormal urine odor Take 1 tablet (500 mg) by mouth in the morning and 1 tablet (500 mg) before bedtime. Do all this for 5 days. 10 tablet 12/28/2024 01/02/2025 Active cyclobenzaprine hydrochloride 10 mg oral tablet (6 sources) Muscle Relaxant Start: 05-30-2024 take 1 tablet by mouth three times daily as needed for muscle spasms cyclobenzaprine 10 mg Tab 10 mg = 1 tab(s), Oral, TID, PRN for spasm, # 30 tab(s), Refills(s) 0, Pharmacy: [facility], 162, cm, 05/30/24 14:27:00 EST, Height/Length Dosing, 127, kg, 05/30/24 14:27:00 EST, Weight Dosing Start Date: 05/30/24 Status: Ordered Quantity: 30.0 Unit: tab(s) Repeat number: 1 dextromethorphan hydrobromide 3 mg/ml / promethazine hydrochloride 1.25 mg/ml oral solution (1 source) Phenothiazine, Uncompetitive K-lueqca-M-aspartat e Receptor Antagonist, Sigma-1 Agonist Start: 09-23-2023 End: 09-28-2023 take 5 mL by mouth every six hours for cough dextromethorphan-pr omethazine 15 mg-6.25 mg/5 mL Oral Syrup 5 mL 5 mL, Oral, q6hr for cough for 5 day(s), 200 mL, Refill(s) 0, [facility], 162, cm, 09/23/23 8:58:00 EST, Height/Length Dosing, 121.6, kg, 09/23/23 8:58:00 EST, Weight Dosing Start Date: 09/23/23 Stop Date: 09/28/23 Status: Ordered diclofenac sodium 75 mg delayed release oral tablet (2 sources) Nonsteroidal Anti-inflammatory Drug Start: 06-30-2024 take 1 [...] day(s), # 30 tab(s), Refills(s) 0, Pharmacy: [facility], 160, cm, 11/06/22 9:52:00 EDT, Height/Length Dosing, 125.6, kg, 11/06/22 9:52:00 EDT, Weight Dosing Start Date: 11/06/22 Stop Date: 11/13/22 Status: Ordered ibuprofen 600 mg oral tablet (20 sources) Nonsteroidal Anti-inflammatory Drug Start: 11-06-2022 take 1 tablet by mouth every six hours ibuprofen 600 mg Tab 600 mg = 1 tab(s), Oral, q6hr, # 40 tab(s), Refills(s) 0, Pharmacy: [facility], 160, cm, 11/06/22 9:52:00 EDT, Height/Length Dosing, 125.6, kg, 11/06/22 9:52:00 EDT, Weight Dosing Start Date: 11/06/22 Status: Ordered Quantity: 40.0 Unit: tab(s) Repeat number: 1 Lidocaine 2% Viscous (8 sources) Start: 05-09-2024 Lidocaine 2% Viscous 0.1 gm, 5 mL, Topical, QIDACHS, 100 mL, Refill(s) 0, [facility], 162, cm, 05/09/24 14:21:00 EDT, Height/Length Dosing, 121.6, kg, 05/09/24 14:21:00 EDT, Weight Dosing Start Date: 05/09/24 Status: Ordered Quantity: 100.0 Unit: mL Repeat number: 1 Start: 05-09-2024 Lidocaine 2% V iscous 0.1 gm, 5 mL, Topical, QIDACHS, 100 mL, Refill(s) 0, [facility], 162, cm, 05/09/24 14:21:00 EDT, Height/Length Dosing, 121.6, kg, 05/09/24 14:21:00 EDT, Weight Dosing Start Date: 05/09/24 Status: Ordered lurasidone hydrochloride 20 mg oral tablet (2 sources) Atypical Antipsychotic Start: 06-29-2024 take 1 tablet [...] day(s), # 21 tab(s), Refills(s) 0, Pharmacy: [facility], 160, cm, 01/14/23 10:35:00 EDT, Height/Length [...] day(s), # 21 tab(s), Refills(s) 0, Pharmacy: [facility], 163, cm, 02/27/23 10:56:00 EDT, Height/Length Dosing, 118, kg, 02/27/23 10:56:00 EDT, Weight Dosing Start Date: 02/27/23 Stop Date: 03/05/23 Status: Ordered [place] (No Known Home Meds) (1 source) Start: 04-20-[address] (No Kn own Home Meds) Active April 20, 2022 12:00am nystatin 603149 unt/ml topical cream (2 sources) Polyene Antifungal Start: 12-30-2019 nystatin (MYCOSTATIN) 192402 UNIT/GM cream Apply topically 2 times daily. 1 Tube 0 12/30/2019 Active Nystatin 100,000 unit/gram cream (2 sources) Start: 06-29-2024 Nystatin 100,0 00 unit/gram cream Active TOPICAL June 29, 2024 1:00am ondansetron 4 mg disintegrating oral tablet (8 sources) Serotonin-3 Receptor Antagonist Start: 10-30-2024 End: 11-02-2024 take 1 tablet by mouth every six hours ondansetron 4 mg Dis Tab 4 mg = 1 tab(s), Oral, q6hr, X 3 day(s), # 10 tab(s), Refills(s) 0, Pharmacy: [facility], 162, cm, 10/30/24 16:52:00 EDT, Height/Length [...] day(s), # 28 tab(s), Refills(s) 0, Pharmacy: [facility], 162, cm, 05/09/24 14:21:00 EDT, Height/Length Dosing, 121.6, kg, 05/09/24 14:21:00 EDT, Weight Dosing Start Date: 05/09/24 Stop Date: 05/16/24 Status: Ordered polyethylene glycol 3350 38488 mg powder for oral solution (1 source) [...] tab(s), Oral, BID, 20 tab(s), Refill(s) 0, [facility], 163, cm, 07/27/23 21:11:00 EST, Height/Length [...] 1 tablet tiZANidine 4 mg oral tablet (2 sources) Central alpha-2 Adrenergic Agonist Start: 06-29-2024 take [...] TID, # 15 tab(s), Refills(s) 0, Pharmacy: [facility], 162, cm, 09/23/23 8:58:00 EST, Height/Length Dosing, 121.6, kg, 09/23/23 8:58:00 EST, Weight Dosing Start Date: 09/23/23 Status: Ordered Quantity: 15.0 Unit: tab(s) Repeat number: 1 Start: 09-23-2023 take 1 tablet by delon th three times daily Zofran ODT 4 mg Tab-Dis 4 mg = 1 tab(s), Oral, TID, # 15 tab(s), Refills(s) 0, Pharmacy: [facility], 162, cm, 09/23/23 8:58:00 EST, Height/Length Dosing, 121.6, kg, 09/23/23 8:58:00 EST, Weight Dosing Start Date: 09/23/23 Status: Ordered Start: 07-27-2023 take 1 tablet by delon th every eight hours Zofran ODT 4 mg Tab-Dis 4 mg = 1 tab(s), Oral, q8hr, # 12 tab(s), Refills(s) 0, Pharmacy: [facility], 163, cm, 07/27/23 21:11:00 EST, Height/Length Dosing, 123.4, kg, 07/27/23 21:11:00 EST, Weight Dosing Start Date: 07/27/23 Status: Ordered Quantity: 12.0 Unit: tab(s) Repeat number: 1 Start: 07-27-2023 take 1 tablet by delon th every eight hours Zofran ODT 4 mg Tab-Dis 4 mg = 1 tab(s), Oral, q8hr, # 12 tab(s), Refills(s) 0, Pharmacy: [facility], 163, cm, 07/27/23 21:11:00 EST, Height/Length Dosing, 123.4, kg, 07/27/23 21:11:00 EST, Weight Dosing Start Date: 07/27/23 Status: Ordered Start: 07-13-2023 take 1 tablet by delon th every eight hours as needed for nausea Zofran ODT 4 mg Tab-Dis 4 mg = 1 tab(s), Oral, q8hr, PRN Nausea/Vomiting, # 12 tab(s), Refills(s) 0, Pharmacy: [facility], 163, cm, 07/13/23 15:31:00 EST, Height/Length Dosing, 117.9, kg, 07/13/23 15:31:00 EST, Weight Dosing Start Date: 07/13/23 Status: Ordered Quantity: 12.0 Unit: tab(s) Repeat number: 1 Start: 07-13-2023 take 1 tablet by delon th every eight hours as needed for nausea Zofran ODT 4 mg Tab-Dis 4 mg = 1 tab(s), Oral, q8hr, PRN Nausea/Vomiting, # 12 tab(s), Refills(s) 0, Pharmacy: [facility], 163, cm, 07/13/23 15:31:00 EST, Height/Length [...] 2024 1:00am June 30, 2024 9:46am Start: 11-27-2022 take 1 tablet by delon twice daily naproxen 500 mg Tab 500 mg = 1 tab(s), Oral, BID, Take one tab by mouth two times a day, # 14 tab(s), Refills(s) 0, Pharmacy: [facility], 160, cm, 01/14/23 10:35:00 EDT, Height/Length [...] / nitrofurantoin, monohydrate 75 mg oral capsule (10 sources) Nitrofuran Antibacterial Start: 10-26-2022 End: 06-29-2024 take 1 capsule by mouth every twelve hours at mealtime Nitrofurantoin Monohyd/M-Cryst (Macrobid) 100 mg Capsule Discontinued 100 MG PO Q12H October 26, 2022 12:00am June 29, 2024 2:42pm must administer with a meal/food Start: 01-16-2022 take 1 capsule by mo [facility] once daily Nitrofurantoin Monohyd Macro 100 MG Oral Capsule TAKE 1 CAPSULE EVERY 12 HOURS DAILY. Quantity: 20 Refills: 0 Ordered: 16-Jan-2022 Mtatie Lipscomb MD Start : 16-Jan-2022 Active Start: [...] Pain 9 tablet 0 11/23/2018 03/08/2019 Discontinued Cl890-Hehp-Fcans Acid ( Multi) 27-800 mg-mcg Tablet (4 sources) Start: 10-26-2022 End: 06-29-2024 Cz289-Lirv-Qfdqw Acid ( Multi) 27-800 mg-mcg Tablet Discontinued [...] disorder] Onset: 01-10-2023 12-13-2018 Chronic Cardiac dysrhythmias (13 sources) Cardiac arrhythmia; Translations: [Cardiac arrhythmia, unspecified] Onset: 12-11-2022 01-10-2023 Chronic Contraceptive and procreative management (20 sources) Contraception ; Translations: [Sterilization requested] Onset: 11-06-2022 06-15-2020 Episodic Disorders of teeth and jaw (2 sources) Disorder of teeth AND/OR supporting structures; Translations: [Other specified disorders of teeth and supporting structures] Onset: 05-09-2024 Episodic E Codes: Natural/environment (8 sources) Cat scratch - wound; Translations: [Scratched by cat, initial encounter] 04-07-2021 Episodic Comment on above: Problem List clean-u p per request of Phys. EHR Cmte Early or threatened labor (4 sources) False labor before 37 completed weeks of gestation, third trimester; Translations: [FALSE LABR BEFOR 37 WK GEST 3RD TRI] Onset: 12-20-2020 Episodic Genitourinary symptoms and ill-defined conditions (9 sources) Dysuria; Translations: [Dysuria] Onset: 01-09-2023 Resolved: 01-10-2023 01-10-2023 Episodic Malaise and fatigue (20 sources) Fatigue; [...] muscle, left lower leg] 05-19-2024 Episodic Other female genital disorders (2 sources) Vaginal odor; Translations: [Other specified noninflammatory disorders of vagina] 12-28-2024 Episodic Other female genital disorders (2 sources) Leukorrhea; Translations: [Other specified noninflammatory disorders of vagina] 12-28-2024 Episodic Other gastrointestinal disorders (1 source) Diarrhea; [...] 01-10-2023 10-18-2019 Episodic Other non-traumatic joint disorders (8 sources) Acute ankle pain; Translations: [Pain in [...] Onset: 11-06-2022 Episodic Other upper respiratory infections (12 sources) Acute pharyngitis, unspecified; Translations: [Laryngitis] Onset: [...] general symptoms and signs] Onset: 09-23-2023 Episodic Residual codes; unclassified (2 sources) High risk sexual behavior; Translations: [High risk heterosexual behavior] 12-28-2024 Episodic Schizophrenia and other psychotic disorders (7 [...] and vulva, initial encounter] Episodic Viral infection (7 sources) Viral disease; Translations: [Viral infection, unspecified] 04-20-2022 Episodic Comment on above: Problem List clean-u p per request of Phys. EHR Cmte Past or Other Problems Problem Classification Problem Date Documented Da te Episodic/Chronic Allergic reactions (1 source) Dermatitis, unspecified; Translations: [Dermatitis, unspecified] Onset: 07-28-2017 Episodic Diabetes or abnormal glucose tolerance complicating ; childbirth; or the puerperium (20 sources) Gestational diabetes mellitus; Translations: [Gestational diabetes mellitus in childbirth] Onset: 11-06-2022 10-08-2022 Episodic Other gastrointestinal disorders (1 source) Constipation, [...] Test Name Value Interpretation Reference Range Facility Urinalysis macro (dipstick) panel (U)on 12-28-2024 Bilirubin, UA Negative Negative - 4(70) +++ mg/dL [facility] Blood, UA Negative Negative - 50 Jong/mcL [facility] Clarity, UA Clear [facility] Color, UA Light Yellow [facility] Glucose, UA Negative Negative - 2000(110) ++++ mg/dL [facility] Ketones, UA Negative Negative - 160(16) ++++ mg/dL [facility] Leukocytes, UA Trace Negative - 500+++ Gilberto/mcL [facility] Nitrite, UA Positive Negative - Positive [facility] pH, UA 5 5 - 9 [facility] Protein, UA Trace Negative - 2000(20) ++++ mg/dL [facility] Spec Grav, UA 1.02 1 - 1.03 [facility] Urobilinogen, UA 1.0 0.2 - 12 mg/dL [facility] Urine Cultureon 11-07-2024 Bacteria identified Cx Nom (U) ORGANISM: Escherichia coli (O:ESCCOL) [place] Count >100,000 Aerobic NAOMI Charge (NMIC56) -- [...] RESISTANT TO ALL B-LACTAM DRUGS. PERFORMED BY: [place] [address] PATHOLOGIST ELECTROTYPE SERVICER GRISELDA MARTIN M.D. Normal [facility] Comment on above: Performed By: #### C UU #### [facility] [address] BMP 10-30-2024 Anion gap [Moles/Vol] 13 mmol/L Normal 6-16 [facility] Comment on above: Performed By: #### 2 [id number] #### [facility] [address] [place] [address] Calcium [Mass/Vol] 8.9 mg/dL Normal 8.9-11.1 [facility] Comment on above: Performed By: #### 2 [id number] #### [facility] [address] [place] [address] Chloride [Moles/Vol] 108 mmol/L Normal 101-[address] [facility] Comment on above: Performed By: #### 2 [id number] #### [facility] [address] [place] [address] CO2 [Moles/Vol] 26 mmol/L Normal 21-31 [facility] Comment on above: Performed By: #### 2 [id number] #### [facility] [address] [place] [address] Creatinine [Mass/Vol] 0.6 mg/dL Normal 0.5-1.3 [facility] Comment on above: Performed By: #### 2 [id number] #### [facility] [address] [place] [address] Glucose [Mass/Vol] 113 mg/dL Normal 55-199 [facility] Comment on above: Performed By: #### 2 [id number] #### [facility] [address] [place] [address] Potassium [Moles/Vol] 3.4 mmol/L Low 3.5-5.3 [facility] Comment on above: Performed By: #### 2 [id number] #### [facility] [address] [place] [address] Sodium [Moles/Vol] 144 mmol/L Normal 135-145 [facility] Comment on above: Performed By: #### 2 [id number] #### [facility] [address] [place] [address] Urea nitrogen [Mass/Vol] 9 mg/dL Normal 5-21 [facility] Comment on above: Performed By: #### 2 [id number] #### [facility] [address] [place] [address] Urea nitrogen/Creatinine [Mass ratio] 15 No Units Normal 10-20 [facility] Comment on above: Performed By: #### 2 [id number] #### [facility] [address] [place] [address] CBC w/ Auto Diffon 5 Basophils/100 WBC (Bld) 0.5 % Normal 0.0-2.0 [facility] Comment on above: Performed By: #### 2 [id number] #### [facility] [address] [place] [address] Basophils/Leukocytes Auto (Bld) [Pure # fraction] 0.1 E9/L Normal 0.0-0.2 [facility] Comment on above: Performed By: #### 2 [id number] #### [facility] [address] [place] [address] Eosinophils (Bld) [#/Vol] 0.1 E9/L Normal 0.0-0.5 [facility] Comment on above: Performed By: #### 2 [id number] #### [facility] [address] [place] [address] Eosinophils/100 WBC (Bld) 0.6 % Normal 0.0-8.0 [facility] Comment on above: Performed By: #### 2 [id number] #### [facility] [address] [place] [address] Erythrocyte distribution width (RBC) [Ratio] 15.4 % High 10.9-14.2 [facility] Comment on above: Performed By: #### 2 [id number] #### [facility] [address] [place] [address] Hematocrit (Bld) [Volume fraction] 36.4 % Normal 34.0-46.0 [facility] Comment on above: Performed By: #### 2 [id number] #### [facility] [address] [place] [address] Hemoglobin (Bld) [Mass/Vol] 12.3 g/dL Normal 12.0-16.0 [facility] Comment on above: Performed By: #### 2 [id number] #### [facility] [address] [place] [address] Lymphocytes (Bld) [#/Vol] 3.1 E9/L Normal 1.0-4.0 [facility] Comment on above: Performed By: #### 2 [id number] #### [facility] [address] [place] [address] Lymphocytes/100 WBC (Bld) 26.5 % Normal 14.0-50.0 [facility] Comment on above: Performed By: #### 2 [id number] #### [facility] [address] [place] [address] MCH (RBC) [Entitic mass] 26.0 pg Low 27.0-34.0 [facility] Comment on above: Performed By: #### 2 [id number] #### [facility] [address] [place] [address] MCHC (RBC) [Mass/Vol] 33.8 g/dL Normal 31.4-36.0 [facility] Comment on above: Performed By: #### 2 [id number] #### [facility] [address] [place] [address] MCV (RBC) [Entitic vol] 76.8 fL Low 80.0-100.0 [facility] Comment on above: Performed By: #### 2 [id number] #### [facility] [address] [place] [address] Monocytes (Bld) [#/Vol] 0.6 E9/L Normal 0.2-1.0 [facility] Comment on above: Performed By: #### 2 [id number] #### [facility] [address] [place] [address] Neutrophils (Bld) [#/Vol] 8.0 E9/L High 2.0-7.5 [facility] Comment on above: Performed By: #### 2 [id number] #### [facility] [address] [place] [address] Neutrophils/100 WBC (Bld) 67.3 % Normal 36.0-75.0 [facility] Comment on above: Performed By: #### 2 [id number] #### [facility] [address] [place] [address] Platelet 314.0 E9/L Normal 150.0-500.0 [facility] Comment on above: Performed By: #### 2 [id number] #### [facility] [address] [place] [address] Platelet mean volume (Bld) [Entitic vol] 8.3 fL Normal 6.4-10.8 [facility] Comment on above: Performed By: #### 2 [id number] #### [facility] [address] [place] [address] RBC (Bld) [#/Vol] 4.7 E12/L Normal 4.3-5.9 [facility] Comment on above: Performed By: #### 2 [id number] #### [facility] [facility] [address] [place] [address] WBC corrected for nucl RBC Auto (Bld) [#/Vol] 11.8 E9/L High 4.0-11.0 [facility] Comment on above: Performed By: #### 2 [id number] #### [facility] [address] [place] [address] CHEMISTRYOrdered By: SYSTEM SYSTEM on 10-30-2024 Albumin [...] 2024 ED Clinical Summary ED Clinical Summary [place] [id number] ED Clinical Summary Person Information Name: SCARLET DURAND [facility] Age: 24 Years : 2000 Sex: Female Language: Paraguayan PCP: DOREEN HA CNP Marital Status: Phone: [phone] Visit Id: Visit Reason: Hemorrhoids; Diarrhea; Nausea [...] 10/30/2024 19:27:18 10/30/2024 19:27:18 10/30/2024 19:27:18 ADDRESS: [address] [place] [address] [address] [facility] [phone] PHYS DOC NOTES: MEDICAL INFORMATION: Prescriptions Given: Medications to Continue Taking That Have Changed [facility], [address] [place] [id number], [phone] START: ondansetron (ondansetron 4 mg Dis Tab) [...] Instructions: Follow up: With: Address: When: DORE[place] [address] Business (1) In 3 days DIAGNOSIS: Gastroenteritis Normal [facility] ED Note-Physicianon 10-31-19 ED Note-Physician ED Note-Physician Basic Information Time [...] daily, # 1 tab(s), Refills(s) 0, Pharmacy: [facility], 162, cm, 10/30/24 16:52:00 EDT, Height/Length Dosing, 121.8, kg, 10/30/24 16:52:00 EDT, Weight Dosing ondansetron, 4 mg = 1 tab(s), Oral, q6hr, X 3 day(s), # 10 tab(s), Refills(s) 0, Pharmacy: [facility], 162, cm, 10/30/24 16:52:00 EDT, Height/Length [...] NS 1000 ml Bolus, 1000 mL, IV [id number] [F] 25 mg + Sodium Chloride 0.9% IV Guerita 50 mL [F] 50 mL, IV Piggyback Disposition Plan Discharge Prescription List Prescriptions ondansetron 4 mg Dis Tab, 4 mg= 1 tab(s), Oral, q6hr Follow-up With When Contact Information DOREEN HA In 3 days [address] [place] [address] [facility] (1) Additional Instructions: Problem List/Past Medical History [...] BID, PRN (more content not included)... Normal [facility] Comment on above: Result Comment: Elec tronically Signed By: Blake Rivera DO\.br\Date and Time Signed: 10/30/24 18:43 EDT ED Patient Education Noteon 10-30-2024 ED Patient Education Note ED Patient Education Note Normal [facility] ED Patient Summaryon 025 ED Patient Summary ED Patient Summary [place] [id number] Patient Discharge Instructions Person Information Name: SCARLET DURAND Age: 24 Years Arrival Date: 10/30/2024 16:46:49 Discharge Diagnosis: Gastroenteritis Primary Care Physician: DOREEN HA CNP Provider Information Primary Provider: Blake Rivera DO Advanced Cable Tool Operator:None The exam and treatment you received in the Emergency Department were for an urgent problem and are not intended as complete care. It is important that you follow up with a doctor, nurse practitioner, or physician???s undertaker assistant for ongoing care. If your symptoms [...] Instructions: With: Address: When: [place] [address] Business (1) In 3 days In the event that this physician does not participate in your insurance network, please consult with your insurance company to find a nearby participating provider. Patient Education Materials: A MESSAGE TO ALL PATIENTS REGARDING OPIOIDS PRESCRIPTION OPIOIDS: WHAT YOU NEED TO KNOW Prescription opioids can be used to help relieve spaokdxf-kc-yhrjou pain and are often prescribed following a [...] be struggling with addiction, tell your health nanny caregiver and ask for guidance or call [facility] [place] (more content not included)... Normal [facility] Extra Blueon 10-30-2024 Tube Collected Plasma Yes Invalid Interpretation Code [facility] Comment on above: Performed By: #### 1 [id number] #### [facility] [address] [place] [address] HEMATOLOGYOrdered By: SYSTEM SYSTEM on 10-30-2024 Basophils/100 [...] 11.0 E9/L Remisol Heme Hep Func Panelon 04-05-2025 Albumin [Mass/Vol] 3.8 g/dL Normal 3.3-5.0 [facility] Comment on above: Performed By: #### 2 [id number] #### [facility] [address] [place] [address] Albumin/Globulin (S) [Mass conc ratio] 1.2 Normal 1.1-2.2 [facility] Comment on above: Performed By: #### 2 [id number] #### [facility] [address] [place] [address] ALP [Catalytic activity/Vol] 57 Int._Unit/L Normal 21-98 [facility] Comment on above: Performed By: #### 2 [id number] #### [facility] [address] [place] [address] ALT No additional P-5'-P [Catalytic activity/Vol] 10 Int._Unit/L Normal 6-46 [facility] Comment on above: Performed By: #### 2 [id number] #### [facility] [address] [place] [address] AST [Catalytic activity/Vol] 12 Int._Unit/L Normal 5-43 [facility] Comment on above: Performed By: #### 2 [id number] #### [facility] [address] [place] [address] Bilirubin [Mass/Vol] 0.3 mg/dL Normal 0.0-1.[address] [facility] Comment on above: Performed By: #### 2 [id number] #### [facility] [address] [place] [address] Bilirubin.direct [Mass/Vol] 0.0 mg/dL Normal 0.0-0.4 [facility] Comment on above: Performed By: #### 2 [id number] #### [facility] [address] [place] [address] Bilirubin.indirect [Mass or moles/Vol] 0.3 mg/dL Normal 0.1-0.9 [facility] Comment on above: Performed By: #### 2 [id number] #### [facility] [address] [place] [address] Globulin (S) [Mass/Vol] 3.2 g/dL Normal 1.4-4.0 [facility] Comment on above: Performed By: #### 2 [id number] #### [facility] [address] [place] [address] Protein [Mass/Vol] 7.0 g/dL Normal 6.0-7.8 [facility] Comment on above: Performed By: #### 2 [id number] #### [facility] [address] [place] [address] Lipase Levelon 10-30-2024 Lipase [Catalytic activity/Vol] 30 U/L Normal 13-58 [facility] Comment on above: Performed By: #### 2 [id number] #### [facility] [address] [place] [address] eGFRon 10-30-2024 eGFR 126 mL/min/1.73 m2 Normal >=59 [facility] Comment on above: Performed By: #### 1 [id number] #### [facility] [address] [place] [address] Urine Cultureon 10-16-2024 Bacteria identified Cx Nom (U) ORGANISM: Escherichia coli (O:ESCCOL) [place] Count >100,000 Aerobic NAOMI Charge ([id number]) -- [...] RESISTANT TO ALL B-LACTAM DRUGS. PERFORMED BY: [place] [address] PATHOLOGIST ELECTROTYPE SERVICER GRISELDA Cummings [facility] Comment on above: Performed By: #### C UU #### [address] Urine cultureOrdered By: Regina Ray on 10-16-2024 Bacteria identified Cx Nom (U) Escherichia coli Abnormal [facility] XR Ankle 3+ Views Lefton XR Ankle [...] MD Transcribed by: SURINDER Technologist: PRISCILLA Cummings [facility] XR Wrist 3+ Views Lefton XR Wrist [...] Ramírez FINAL REPORT Dictated: 10/09/2024 12:17 pm SignJesus prajapati MD Signed (Electronic Signature): 10/09/2024 12:17 pm Signed by: Jesus Mendieta MD Transcribed by: SURINDER Technologist: PRISCILLA Cummings [facility] ED Clinical Summaryon 2024 ED Clinical Summary ED Clinical Summary [place] [id number] ED Clinical Summary Person Information Name: SCARLET DURAND [facility] Age: 24 Years : 2000 Sex: Female Language: Paraguayan PCP: DOREEN HA CNP Marital Status: Phone: [phone] Visit Id: Visit Reason: Wrist pain-swelling; Wrist [...] 10/08/2024 23:06:58 10/08/2024 23:06:58 10/08/2024 23:06:58 ADDRESS: [address] [place] [address] [address] [facility] [phone] PHYS DOC NOTES: MEDICAL INFORMATION: Prescriptions Given: [...] Sprain Follow up: With: Address: When: DOREEN HA [address] [place], [place] [id number] [facility] (1) In 7 days 10/15/2024 DIAGNOSIS: Left wrist sprain; Sprain of ankle, left Normal [facility] ED Note-Physicianon 10-09-19 ED Note-Physician ED Note-Physician Basic Information Time Seen: Darrell Eric 10/08/2024 21:34 Chief Complaint pt arrives for [...] and Complexity of Problems Differential Diagnosis: [] [facility] Data External documents reviewed: N/A My [...] medications Follow-up With When Contact Information DOREEN LELAND In 7 days 10/15/2024 EDT [address] [facility] [place] [address]- Business (1) Additional Instructions: Patient Education Wrist [...] mg Ta (more content not included)... Normal [facility] Comment on above: Result Comment: Elec tronically Signed By: Eric Ramírez DO\.br\Date and Time Signed: 10/08/24 22:53 EDT ED Patient Summaryon 025 ED Patient Summary ED Patient Summary [address] [address] Patient Discharge Instructions Person Information Name: SCARLET DURAND Age: 24 Years Arrival Date: 10/08/2024 21:15:19 Discharge Diagnosis: Left wrist sprain; Sprain of ankle, left Primary Care Physician: DOREEN HA CNP Provider Information Primary Provider: Eric Ramírez DO Advanced Cable Tool Operator:None The exam and treatment you received in the Emergency Department were for an urgent problem and are not intended as complete care. It is important that you follow up with a doctor, nurse practitioner, or physician???s undertaker assistant for ongoing care. If your symptoms [...] Follow-up Instructions: With: Address: When: [place] [address] Business (1) In 7 days 10/15/2024 In the event that this physician does not participate in your insurance network, please consult with your insurance company to find a nearby participating provider. Patient Education Materials: Wrist Sprain, Adult; Ankle Sprain A MESSAGE TO ALL PATIENTS REGARDING OPIOIDS PRESCRIPTION OPIOIDS: WHAT YOU NEED TO KNOW Prescription opioids can be used to help relieve uoxzspci-gq-wgyghc pain and are often prescribed following a [...] addiction, tell (more content not included)... Normal [facility] Quantiferon-TB Plus (Client Incubated)on 09-10-2024 Gamma interferon background IA Qn (Bld) 0.00 International_Unit/mL Invalid Interpretation Code [facility] Comment on above: Performed By: #### 1 [id number] #### [facility] [address] [place] [address] M. tuberculosis stim IFN-g by CD4+ CD8+ T-cells corrected for background Qn (Bld) 0.00 International_Unit/mL Invalid Interpretation Code [facility] Comment on above: Performed By: #### 1 [id number] #### [facility] [address] [place] [address] M. tuberculosis stim IFN-g by CD4+ T-cells corrected for background Qn (Bld) 0.00 International_Unit/mL Invalid Interpretation Code [facility] Comment on above: Performed By: #### 1 [id number] #### [facility] [address] [place] [address] M. tuberculosis stim IFN-g Ql (Bld) [Interp] Negative Invalid Interpretation Code Negative [facility] Comment on above: Result Comment: No r [...] interferon gamma. Chemiluminescence immunoassay methodology Performed at: [facility] [id number] PhD Hong Parker Performed By: #### 1 [id number] #### [facility] [address] [place] [address] Mitogen stimulated gamma interferon corrected for background Qn (Bld) >10.00 Invalid Interpretation Code [facility] Comment on above: Performed By: #### 1 [id number] #### [facility] [address] [place] [address] Service comment (Unsp spec) [Interp] Comment Invalid Interpretation Code [facility] Comment on above: Result Comment: Roman tiFERON-TB [...] for the test. Performed By: #### 1 [id number] #### [facility] [address] [place] [address] Hep Bs Abon 09-09-2024 HBV surface Ab Ql (S) Reactive Invalid Interpretation Code [facility] Comment on above: Result Comment: Non Reactive: Not immune to HBV infection. Equivocal: Unable to determine if anti-HBs is present at levels consistent with immunity. Reactive: Anti-HBs concentration detected at greater than 10 mIU/mL. Individual is considered to be immune to infection with HBV. Performed at: [address] [id number] PhD Hong Parker Performed By: #### 2 [id number] #### [facility] [address] [place] [address] Measles/Mumps/Rubella Immuni tyon 09-09-2024 MeV IgG IA Qn (S) 183.0 A unit/mL Invalid Interpretation Code Immune >16.4 [facility] Comment on above: Result Comment: Nega tive <13.5 Equivocal 13.5 - 16.4 Positive >16.4 Presence of antibodies to Rubeola is presumptive evidence of immunity except when acute infection is suspected. Performed By: #### 3 [id number] #### [facility] [address] [place] [address] MuV IgG IA Qn (S) <9.0 Low Immune >10.9 [facility] Comment on above: Result Comment: Nega tive <9.0 Equivocal 9.0 - 10.9 Positive >10.9 A positive result generally indicates past exposure to Mumps virus or previous vaccination. Performed at: [facility] [address] [place] [id number] PhD Hong Parker Performed By: #### 3 [id number] #### [facility] [address] [place] [address] Rubella virus IgG Qn (S) 3.81 [IU]/mL Invalid Interpretation Code Immune >0.99 [facility] Comment on above: Result Comment: Non- immune <0.90 Equivocal 0.90 - 0.99 Immune >0.99 Performed By: #### 3 [id number] #### [facility] [address] [place] [address] Varic IgGon 09-09-2024 VZV IgG IA Ql (S) Reactive Invalid Interpretation Code Non Reactive [facility] Comment on above: Result Comment: Pl ease note reference interval change A Reactive result is considered evidence of immunity to VZV. Reactive indicates that VZV IgG was detected consistent with previous infection and/or vaccination. A Non Reactive result indicates that VZV IgG was not detected suggesting that immunity has not been acquired. Performed at: [address] [id number] PhD Hong Parker Performed By: #### 1 [id number] #### [facility] [address] [place] [address] XR Spine Lumbar Complete [facility] Bendion 07-13-2024 XR Spine Lumbar Complete Including [...] mGy = na DAP = na Normal [facility] XR Spine Thoracic 3 View[employer] 07-13-2024 XR [...] mGy = na DAP = na Normal [facility] Reference Laboratory Testing Ordered By: Marybeth Savage on 07-08-2024 Other: -negative cough, sneeze, strain-positive occipital headaches [facility] Work Phone: T3 Totalon 06-01-2024 T3 [Mass/Vol] 103 ng/dL Invalid Interpretation Code [id number] [facility] Comment on above: Result Comment: Perf ormed at: [facility] [id number] PhD Hong Parker Performed By: #### 1 [id number] #### [facility] [address] [place] [address] XR Spine Cervical 4 or 5 Greer child 06-01-2024 XR Spine Cervical 4 or 5 [...] mGy = . DAP = . Normal [facility] BNPon 05-31-2024 Int Ctr BNP Pass Normal [facility] Comment on above: Performed By: #### 1 [id number] #### [facility] [address] [place] [address] Natriuretic peptide B (Bld) [Mass/Vol] 8 pg/mL Normal 5-80 [facility] Comment on above: Performed By: #### 1 [id number] #### [facility] [address] [place] [address] CHEMISTRYOrdered By: SYSTEM SYSTEM on 05-31-2024 Albumin [...] Sensitivity Troponin I Instructions For Use, Judy [place], February 2018) TSH Qn 1.13 m[IU]/L Normal 0.34 - 5.60 mcIU/mL Remisol Chem Urea nitrogen [Mass/Vol] 10 mg/dL Normal 5 - 21 mg/dL Remisol Chem Urea nitrogen/Creatinine [Mass ratio] 14 mg/mg Normal 10 - 20 Remisol Chem CHEMISTRYOrdered By: Lou Cuellar on 05-31-2024 Natriuretic peptide B (Bld) [Mass/Vol] 8 pg/mL Normal 5 - 80 pg/mL [facility] Albumin [Mass/Vol] 4.1 g/dL Normal 3.3-5.0 [facility] Comment on above: Performed By: #### 2 [id number] #### [facility] [address] [place] [address] Albumin/Globulin (S) [Mass conc ratio] 1.2 Normal 1.1-2.2 [facility] Comment on above: Performed By: #### 2 [id number] #### [facility] [address] [place] [address] ALP [Catalytic activity/Vol] 63 Int._Unit/L Normal 21-98 [facility] Comment on above: Performed By: #### 2 [id number] #### [facility] [address] [place] [address] ALT No additional P-5'-P [Catalytic activity/Vol] 10 Int._Unit/L Normal 6-46 [facility] Comment on above: Performed By: #### 2 [id number] #### [facility] [address] [place] [address] Anion gap [Moles/Vol] 9 mmol/L Normal 6-16 [facility] Comment on above: Performed By: #### 2 [id number] #### [facility] [address] [place] [address] AST [Catalytic activity/Vol] 10 Int._Unit/L Normal 5-43 [facility] Comment on above: Performed By: #### 2 [id number] #### [facility] [address] [place] [address] Bilirubin [Mass/Vol] 0.4 mg/dL Normal 0.0-1.[address] [facility] Comment on above: Performed By: #### 2 [id number] #### [facility] [address] [place] [address] Calcium [Mass/Vol] 9.2 mg/dL Normal 8.9-11.1 [facility] Comment on above: Performed By: #### 2 [id number] #### [facility] [address] [place] [address] Chloride [Moles/Vol] 102 mmol/L Normal 101-[address] [facility] Comment on above: Performed By: #### 2 [id number] #### [facility] [address] [place] [address] CO2 [Moles/Vol] 31 mmol/L Normal 21-31 [facility] Comment on above: Performed By: #### 2 [id number] #### [facility] [address] [place] [address] Creatinine [Mass/Vol] 0.7 mg/dL Normal 0.5-1.3 [facility] Comment on above: Performed By: #### 2 [id number] #### [facility] [address] [place] [address] Globulin (S) [Mass/Vol] 3.4 g/dL Normal 1.4-4.0 [facility] Comment on above: Performed By: #### 2 [id number] #### [facility] [address] [place] [address] Glucose [Mass/Vol] 88 mg/dL Normal 55-199 [facility] Comment on above: Performed By: #### 2 [id number] #### [facility] [address] [place] [address] Potassium [Moles/Vol] 4.3 mmol/L Normal 3.5-5.3 [facility] Comment on above: Performed By: #### 2 [id number] #### [facility] [address] [place] [address] Protein [Mass/Vol] 7.5 g/dL Normal 6.0-7.8 [facility] Comment on above: Performed By: #### 2 [id number] #### [facility] [address] [place] [address] Sodium [Moles/Vol] 138 mmol/L Normal 135-145 [facility] Comment on above: Performed By: #### 2 [id number] #### [facility] [address] [place] [address] Urea nitrogen [Mass/Vol] 10 mg/dL Normal 5-21 [facility] Comment on above: Performed By: #### 2 [id number] #### [facility] [address] [place] [address] Urea nitrogen/Creatinine [Mass ratio] 14 No Units Normal 10-20 [facility] Comment on above: Performed By: #### 2 [id number] #### [facility] [address] [place] [address] T4 & TSHon 05-31-2024 T4 [Mass/Vol] 6.6 microgram/dL Normal 4.6-9.1 [facility] Comment on above: Performed By: #### 1 [id number] #### [facility] [address] [place] [id number] TSH Qn 1.13 m[IU]/L Normal 0.34-5.60 [facility] Comment on above: Performed By: #### 1 [id number] #### [facility] [address] [place] [address] Troponinon 05-31-2024 Troponin HS <2.30 Low 10.10-27.10 [facility] Comment on above: Result Comment: The 95% CI (Confidence Interval) PPV (Positive Predictive Value) for myocardial infarction in females is 38 pg/mL, in males 51 pg/mL. The results should be used in conjunction with clinical conditions of myocardial infarction. (Access High Sensitivity Troponin I Instructions For Use, Judy Niranjan, February 2018) Performed By: #### 2 [id number] #### [facility] [address] [place] [address] eGFRon 05-31-2024 eGFR 122 mL/min/1.73 m2 Normal >=59 [facility] [facility] Comment on above: Performed By: #### 1 [id number] #### [facility] Laboratory [address] [place] [address] B hCG Qualon 05-30-2024 Beta HCG ( test) Ql Negative Normal [facility] Comment on above: Performed By: #### 2 [id number] #### [facility] Laboratory [address] [place] [address] BMPon 05-30-2024 Anion gap [Moles/Vol] 11 mmol/L Normal 6-16 [facility] Comment on above: Performed By: #### 2 [id number] #### [facility] Laboratory [address] [place] [address] Calcium [Mass/Vol] 8.7 mg/dL Low 8.9-11.1 [facility] Comment on above: Performed By: #### 2 [id number] #### [facility] Laboratory [address] [place] [address] Chloride [Moles/Vol] 104 mmol/L Normal 101-[address] [facility] Comment on above: Performed By: #### 2 [id number] #### [facility] Laboratory [address] [place] [address] CO2 [Moles/Vol] 26 mmol/L Normal 21-31 [facility] Comment on above: Performed By: #### 2 [id number] #### [facility] Laboratory [address] [place] [address] Creatinine [Mass/Vol] 0.7 mg/dL Normal 0.5-1.3 [facility] Comment on above: Performed By: #### 2 [id number] #### [facility] [address] [place] [address] Glucose [Mass/Vol] 115 mg/dL Normal 55-199 [facility] Comment on above: Performed By: #### 2 [id number] #### [facility] Laboratory [address] [place] [address] Potassium [Moles/Vol] 3.8 mmol/L Normal 3.5-5.3 [facility] Comment on above: Performed By: #### 2 [id number] #### [facility] Laboratory [address] [place] [address] Sodium [Moles/Vol] 137 mmol/L Normal 135-145 [facility] Comment on above: Performed By: #### 2 [id number] #### [facility] Laboratory [address] [place] [address] Urea nitrogen [Mass/Vol] 12 mg/dL Normal 5-21 [facility] Comment on above: Performed By: #### 2 [id number] #### [facility] Laboratory [address] [place] [address] Urea nitrogen/Creatinine [Mass ratio] 17 No Units Normal 10-20 [facility] Comment on above: Performed By: #### 2 [id number] #### [facility] Laboratory [address] [place] [address] CBC w/ Auto Diffon 4 Basophils/100 WBC (Bld) 0.5 % Normal 0.0-2.0 [facility] Comment on above: Performed By: #### 2 [id number] #### [facility] Laboratory [address] [place] [address] Basophils/Leukocytes Auto (Bld) [Pure # fraction] 0.1 E9/L Normal 0.0-0.2 [facility] Comment on above: Performed By: #### 2 [id number] #### [facility] Laboratory [address] [place] [address] Eosinophils (Bld) [#/Vol] 0.1 E9/L Normal 0.0-0.5 [facility] Comment on above: Performed By: #### 2 [id number] #### [facility] Laboratory [address] [place] [address] Eosinophils/100 WBC (Bld) 0.5 % Normal 0.0-8.0 [facility] Comment on above: Performed By: #### 2 [id number] #### [facility] Laboratory [address] [place] [address] [place] [address] Erythrocyte distribution width (RBC) [Ratio] 16.3 % High 10.9-14.2 [facility] Comment on above: Performed By: #### 2 [id number] #### [facility] Laboratory [address] [place] [address] Hematocrit (Bld) [Volume fraction] 36.0 % Normal 34.0-46.0 [facility] Comment on above: Performed By: #### 2 [id number] #### [facility] Laboratory [address] [place] [address] Hemoglobin (Bld) [Mass/Vol] 12.0 g/dL Normal 12.0-16.0 [facility] Comment on above: Performed By: #### 2 [id number] #### [facility] [address] [place] [address] Lymphocytes (Bld) [#/Vol] 2.5 E9/L Normal 1.0-4.0 [facility] Comment on above: Performed By: #### 2 156021 #### [facility] Laboratory [address] [place] [address] Lymphocytes/100 WBC (Bld) 20.1 % Normal 14.0-50.0 [facility] Comment on above: Performed By: #### 2 [id number] #### [facility] Laboratory [address] [place] [address] MCH (RBC) [Entitic mass] 25.4 pg Low 27.0-34.0 [facility] Comment on above: Performed By: #### 2 [id number] #### [facility] [address] [place] [address] MCHC (RBC) [Mass/Vol] 33.5 g/dL Normal 31.4-36.0 [facility] Comment on above: Performed By: #### 2 [id number] #### [facility] [address] [place] [address] MCV (RBC) [Entitic vol] 75.8 fL Low 80.0-100.0 [facility] Comment on above: Performed By: #### 2 [id number] #### [facility] [address] [place] [address] Monocytes (Bld) [#/Vol] 0.6 E9/L Normal 0.2-1.0 [facility] Comment on above: Performed By: #### 2 399505 #### [facility] Laboratory [address] [place] [address] Neutrophils (Bld) [#/Vol] 9.2 E9/L High 2.0-7.5 [facility] Comment on above: Performed By: #### 2 582603 #### [facility] Laboratory [address] [place] [address] Neutrophils/100 WBC (Bld) 73.9 % Normal 36.0-75.0 [facility] Comment on above: Performed By: #### 2 458452 #### [facility] [address] [place] [address] Platelet 424.0 E9/L Normal 150.0-500.0 [facility] Comment on above: Performed By: #### 2 [id number] #### [facility] [address] [place] [address] Platelet mean volume (Bld) [Entitic vol] 7.8 fL Normal 6.4-10.8 [facility] Comment on above: Performed By: #### 2 [id number] #### [facility] Laboratory [address] [place] [address] RBC (Bld) [#/Vol] 4.8 E12/L Normal 4.3-5.9 [facility] Comment on above: Performed By: #### 2 [id number] #### [facility] Laboratory [address] [place] [address] WBC corrected for nucl RBC Auto (Bld) [#/Vol] 12.4 E9/L High 4.0-11.0 [facility] Comment on above: Performed By: #### 2 [id number] #### [facility] [address] [place] [address] CHEMISTRYOrdered By: SYSTEM SYSTEM on 05-30-2024 Anion [...] Instructions For Use, Judy Niranjan, February 2018) Urea nitrogen [Mass/Vol] 12 mg/dL Normal 5 - 21 mg/dL [facility] Urea nitrogen/Creatinine [Mass ratio] 17 mg/mg Normal 10 - 20 [facility] COAGULATIONOrdered By: Aby Kearns on 05-30-2024 aPTT Coag (PPP) [Time] 35.3 s Normal 25.1 - 36.5 second(s) [facility] Comment on above: Interpretive Data: [...] the same coagulation reagent and instrumentation as [facility]. Currently there are no coagulation studies available worldwide for children to 14 days, and no normal ranges. Heparin therapeutic range (represented by Anti-Factor Xa activity of 0.2 - 0.4 U/mL) corresponds to PTT of 56.6 - 109.0 sec. INR Coag (PPP) [Relative time] 1.08 {INR} Invalid Interpretation Code [facility] Comment on above: Interpretive Data: I NR results are specifically intended to assess patients stabilized on long-term Anticoagulation therapy suggested INR s Less Intensive Anticoagulation 2.0 3.0 Conventional Range 3.0 4.5 PT Coag (PPP) [Time] 12.1 s Normal 9.4 - 1 2.5 second(s) [facility] Comment on above: Interpretive Data: [...] the same coagulation reagent and instrumentation as [facility]. Currently there are no coagulation studies available worldwide for children to 14 days, and no normal ranges. ED Clinical Summaryon 2023 ED Clinical Summary ED Clinical Summary [place] [id number] ED Clinical Summary Person Information Name: SCARLET DURAND/[facility] Age: 24 Years : 2000 Sex: Female Language: Paraguayan PCP: DOREEN HA CNP Marital Status: Phone: [phone] Visit Id: Visit Reason: Arm pain-swelling; Chest [...] 05/30/2024 15:17:51 05/30/2024 15:17:51 05/30/2024 15:17:51 ADDRESS: [address] [facility] [id number] PHYS DOC NOTES: MEDICAL INFORMATION: Prescriptions Given: New Medications [facility], [address] [place], [place] [id number], [phone] cyclobenzaprine (cyclobenzaprine 10 mg Tab) 1 Tablets [...] EDUCATION INFORMATION: Instructions: Nonspecific Chest Pain, Adult, Jphv-uc-Ermi Follow up: With: Address: When: [place] [address] [facility] ([address] In 3 days 06/02/2024 Comments: Call Dr for diagnosis based follow up DIAGNOSIS: Nonspecific chest pain Normal [facility] ED Note-Physicianon 05-30-20 ED Note-Physician ED Note-Physician [...] and Complexity of Problems Differential Diagnosis: [] [facility] Data External documents reviewed: [] My [...] spasm, # 30 tab(s), Refills(s) 0, Pharmacy: [facility], 162, cm, 05/30/24 14:27:00 EST, Height/Length Dosing, 127, kg, 05/30/24 14:27:00 EST, Weight Dosing Basic Metabolic Panel Beta hCG Qual CBC w/ Auto Diff ED Cardiac Monitoring eGFR Oxygen Saturation Oxygen Therapy PT & PTT Saline Lock Insert Troponin 0 Hr. UA with Cult Rflx XR Chest Single View Disposition Plan Patient (more content not included)... Normal [facility] Comment on above: Result Comment: Elec tronically Signed By: Miguelito Rubi PA-C\.br\Date and Time Signed: 05/30/24 15:07 EST\.br\Electronically Co-Signed By: Ashley Faustin M.D.\.br\Date and Time Co-Signed: 05/30/24 15:09 EST ED Patient Summaryon 024 ED Patient Summary ED Patient Summary [address] [address] Patient Discharge Instructions Person Information Name: SCARLET DURAND Age: 24 Years Arrival Date: 05/30/2024 14:18:08 Discharge Diagnosis: Nonspecific chest pain Primary Care Physician: DOREEN HA CNP Provider Information Primary Provider: Ashley Faustin M.D. Advanced Cable Tool Operator:None The exam and treatment you received in the Emergency Department were for an urgent problem and are not intended as complete care. It is important that you follow up with a doctor, nurse practitioner, or physician???s undertaker assistant for ongoing care. If your symptoms [...] Follow-up Instructions: With: Address: When: DOREEN HA [address] [place] [address] [place] [id number] [facility] (1) In 3 days 06/02/2024 Comments: Call Dr for diagnosis based follow up In the event that this physician does not participate in your insurance network, please consult with your insurance company to find a nearby participating provider. Patient Education Materials: Nonspecific Chest Pain, Adult, Srhm-gh-Iivp A MESSAGE TO ALL PATIENTS REGARDING OPIOIDS PRESCRIPTION OPIOIDS: WHAT YOU NEED TO KNOW Prescription opioids can be used to help relieve sdrppnxh-wu-qfidor pain and are often prescribed following a [...] you juana (more content not included)... Normal [facility] HEMATOLOGYOrdered By: SYSTEM SYSTEM on 05-30-2024 Basophils/100 [...] Coag (PPP) [Time] 35.3 second(s) Normal 25.1-36.5 [facility] Comment on above: Result Comment: Para meter [...] the same coagulation reagent and instrumentation as [facility]. Currently there are no coagulation studies available worldwide for children to 14 days, and no normal ranges. Heparin therapeutic range (represented by Anti-Factor Xa activity of 0.2 - 0.4 U/mL) corresponds to PTT of 56.6 - 109.0 sec. Performed By: #### 1 [id number] #### [facility] Laboratory [address] [place] [address] INR Coag (PPP) [Relative time] 1.08 {INR} Invalid Interpretation Code [facility] Comment on above: Result Comment: INR results are specifically intended to assess patients stabilized on long-term Anticoagulation therapy suggested INR???s ???Less Intensive Anticoagulation??? 2.0 ??? 3.0 Conventional Range 3.0 ??? 4.5 Performed By: #### 1 [id number] #### [facility] Laboratory [address] [place] [address] PT Coag (PPP) [Time] 12.1 second(s) Normal 9.4-12.5 [facility] Comment on above: Result Comment: 15 d [...] the same coagulation reagent and instrumentation as [facility]. Currently there are no coagulation studies available worldwide for children to 14 days, and no normal ranges. Performed By: #### 1 [id number] #### [facility] Laboratory [address] [place] [address] SEROLOGYOrdered By: Ton Lerma on 05-30-2024 Beta HCG ( test) Ql Negative (05/30/24 2:32 PM) Normal [facility] Man Sero Troponin 0 Hr.on 05-30-2024 Troponin HS <2.30 Low 10.10-27.10 [facility] Comment on above: Result Comment: The 95% CI (Confidence Interval) PPV (Positive Predictive Value) for myocardial infarction in females is 38 pg/mL, in males 51 pg/mL. The results should be used in conjunction with clinical conditions of myocardial infarction. (Access High Sensitivity Troponin I Instructions For Use, Judy Niranjan, February 2018) Performed By: #### 1 [id number] #### [facility] Laboratory [address] [place] [address] XR Chest Single Viewon 05-30 XR Chest [...] mGy = na DAP = na Normal [facility] eGFRon 05-30-2024 eGFR 122 mL/min/1.73 m2 Normal >=59 [facility] Comment on above: Performed By: #### 1 [id number] #### [facility] Laboratory [address] [place] [address] ED Clinical Summaryon 2023 ED Clinical Summary ED Clinical Summary [address] [address] ED Clinical Summary Person Information Name: SCARLET DURAND [place]/[facility] Age: 24 Years : 2000 Sex: Female Language: Paraguayan PCP: DOREEN HA CNP Marital Status: Phone: [phone] Visit Id: Visit Reason: Throat pain - [...] 05/17/2024 09:05:59 05/17/2024 09:05:59 05/17/2024 09:05:59 ADDRESS: [address] [place] [address] [address] [facility] [phone] PHYS DOC NOTES: MEDICAL INFORMATION: Prescriptions Given: New Medications [facility], [address] [place], [place] [id number], [phone] amoxicillin (amoxicillin 500 mg Cap) 1 Capsules [...] Adult Follow up: With: Address: When: [address] [place] [address] [facility] ([address] In 3 days 05/20/2024 DIAGNOSIS: Pharyngitis Normal [facility] ED Note-Physicianon 05-17-20 ED Note-Physician ED Note-Physician [...] day(s), # 30 cap(s), Refills(s) 0, Pharmacy: [facility], 162, cm, 05/09/24 14:21:00 EDT, Height/Length [...] In 3 days 05/20/2024 EDT [address] [place] [address]- Business (1) Additional Instructions: Patient Education Strep [...] made to ensure accuracy, however, inadvertently computerized component assembler mistakes may be present. Appropriate healthcare PPE [...] Unemployed, 0 (more content not included)... Normal [facility] Comment on above: Result Comment: Elec tronically Signed By: Lukas Hernandez PA-C\.br\Date and Time Signed: 05/17/24 08:46 EDT\.br\Electronically Co-Signed By: Bi Galeana DO\.br\Date and Time Co-Signed: 05/17/24 13:13 EDT ED Patient Summaryon 024 ED Patient Summary ED Patient Summary [place] [id number] Patient Discharge Instructions Person Information Name: SCARLET DURAND Age: 24 Years Arrival Date: 05/17/2024 08:29:16 Discharge Diagnosis: Pharyngitis Primary Care Physician: DOREEN HA CNP Provider Information Primary Provider: Bi Galeana DO Advanced Cable Tool Operator:Lukas Hernandez PA-C The exam and treatment you received in the Emergency Department were for an urgent problem and are not intended as complete care. It is important that you follow up with a doctor, nurse practitioner, or physician?s undertaker assistant for ongoing care. If your symptoms [...] Follow-up Instructions: With: Address: When: DOREEN HA [address] [place] [address] [place] [address] Business (1) In 3 days 05/20/2024 In the event that this physician does not participate in your insurance network, please consult with your insurance company to find a nearby participating provider. Patient Education Materials: Strep Throat, Adult A MESSAGE TO ALL PATIENTS REGARDING OPIOIDS PRESCRIPTION OPIOIDS: WHAT YOU NEED TO KNOW Prescription opioids can be used to help relieve cdnginbk-dk-zimsqh pain and are often prescribed following a [...] be struggling with addiction, tell your health nanny caregiver and ask for guidance or call [facility]?S National Helpline at 5-300-0 (more content not included)... Normal [facility] ED Clinical Summaryon 2023 ED Clinical Summary ED Clinical Summary [place] [id number] ED Clinical Summary Person Information Name: SCARLET DURAND/[facility] Age: 24 Years : 2000 Sex: Female Language: Paraguayan PCP: DOREEN HA CNP Marital Status: Phone: [phone] Visit Id: Visit Reason: Dental pain; MOUTH [...] ADDRESS: [address] [facility] [phone] PHYS DOC NOTES: MEDICAL INFORMATION: Prescriptions Given: New Medications [facility], [address] [place], [place] [id number], [phone] lidocaine topical (Lidocaine 2% Viscous) 5 Milliliter [...] 0. PATIENT EDUCATION INFORMATION: Instructions: Dental Pain, Iyeu-yv-Oadf Follow up: With: Address: When: Dental: [facility] [phone] In 3 days 05/12/2024 With: Address: When: Dental: [facility] [phone] In 3 days 05/12/2024 With: Address: When: Dental: [facility] [employer] [facility] [phone] In 3 days 05/12/2024 Comments: Call to schedule a follow-up appointment with the dentists provided or the [facility] dentist on the pamphlet in the next 2 to 3 days. Take the antibiotic as prescribed. Use the viscous lidocaine as needed for pain management along with Tylenol and ibuprofen. Return to ED with any new or worsening symptoms. With: Address: When: [place] [address] [facility] (1) In 3 days DIAGNOSIS: Broken or cracked tooth, nontraumatic; Pain, dental Normal [facility] ED Note-Physicianon 05-09-20 ED Note-Physician ED Note-Physician [...] mL, Topical, QIDACHS, 100 mL, Refill(s) 0, [facility], 162, cm, 05/09/24 14:21:00 EDT, Height/Length Dosing, 121.6, kg, 05/09/24 14:21:00 EDT, Weight Dosing lidocaine topical, 200 mg, 10 mL, Soln-Oral, Oral, Once, Stop date 05/09/24 15:11:00 EDT, STAT, Start date 05/09/24 15:11:00 EDT penicillin V potassium, 500 mg = 1 tab(s), Oral, q6hr, X 7 day(s), # 28 tab(s), Refills(s) 0, Pharmacy: [facility], 162, cm, 05/09/24 14:21:00 EDT, Height/Length Dosing, 121.6, kg, 05/09/24 14:21:00 EDT, Weight Dosing penicillin V potassium, 500 mg = 1 tab(s), Tab, Oral, Once, Stop date 10/13/24 15:18:00 EDT, STAT, Start date 05/09/24 15:18:00 [...] q6hr Follow-up With When Contact Information Dental: [facility] [phone] In 3 days 05/12/2024 EDT Additional Instructions: Dental: [facility] [phone] In 3 days 05/12/2024 EDT Additional Instructions: Dental: [employer] [facility] [phone] In 3 days 05/12/2024 EDT Additional Instructions: Call to schedule a follow-up appointment with the dentists provided [facility] on the pamphlet in the next 2 to 3 days. Take the antibiotic as prescribed. Use the viscous lidocaine as needed for (more content not included)... Normal [facility] Comment on above: Result Comment: Elec tronically Signed By: Lois Engel PA-C\.br\Date and Time Signed: 05/09/24 16:15 EDT\.br\Electronically Co-Signed By: Bi Galeana DO\.br\Date and Time Co-Signed: 05/09/24 17:12 EDT ED Patient Summaryon ED Patient Summary ED Patient Summary [place] [id number] Patient Discharge Instructions Person Information Name: SCARLET DURAND Age: 24 Years Arrival Date: 05/09/2024 14:12:02 Discharge Diagnosis: Broken or cracked tooth, nontraumatic; Pain, dental Primary Care Physician: DOREEN HA CNP Provider Information Primary Provider: Bi Galeana DO Advanced Cable Tool Operator:Lois Engel PA-C The exam and treatment you received in the Emergency Department were for an urgent problem and are not intended as complete care. It is important that you follow up with a doctor, nurse practitioner, or physician?s undertaker assistant for ongoing care. If your symptoms become worse or you do not improve as expected and you are unable to reach your usual health care provider, you should return to the Emergency Department. We are available 24 hours a day. ROMELIASCARLET has been given the following list of patient education materials, prescriptions and follow-up instructions: Follow-up Instructions: With: Address: When: Dental: [facility] [phone] In 3 days 05/12/2024 With: Address: When: Dental: [facility] [phone] In 3 days 05/12/2024 With: Address: When: [facility] [phone] In 3 days 05/12/2024 Comments: Call to schedule a follow-up appointment with the dentists provided or [facility] on the pamphlet in the next 2 to 3 days. Take the antibiotic as prescribed. Use the viscous lidocaine as needed for pain management along with Tylenol and ibuprofen. Return to ED with any new or worsening symptoms. With: Address: When: [place] [address] Business (1) In 3 days In the event that this physician does not participate in your insurance network, please consult with your insurance company to find a nearby participating provider. Patient Education Materials: Dental Pain, Uggg-vj-Srhx A MESSAGE TO ALL PATIENTS REGARDING OPIOIDS PRESCRIPTION OPIOIDS: WHAT YOU NEED TO KNOW Prescription opioids can be used to help relieve naavaauk-fe-oeyiwi pain and are often prescribed following a [...] Store p (more content not included)... Normal [facility] Coding Summary.on 01-16-2024 Coding Summary. VABTEfgw89YKg0bLy+PG hlY WQ+YF3ULJBtE75hsQIsrW7y F6LZMWbFFphjLCFNMPwXDfX lxhCqSS4bwIPnXVDq IC8+PM5qAJNdBwebaNArm3O 9nQO0Y89yje1jNXkecAO8LL FjDyAdcweus2aixOt5WIeqS mluOyBt USXvwV97WQX3fR64Wd31dRB byQRbr4jghAu2SoYjUBShJU C9eYjbLRdrg1KuVKPqS02lh RKax0E4 EAAdfLiguFOtAsLvlTI8zE4 oMMeuooahs8fsezofIrm6hh 86pSJjf0F1sCJ1U1YpjoG7C GJvbGQg RbdyuYHUsN9qfwlmk4qvpuc vWqGfYOSyVVn5INz9PGDabA joErKqPI52ARO6SVQmqeOeK 2FsLWFs eZotEpS7p8F1Hp8ZP8FSTdq fW5KAATERADiyxNN+PC90cj 24J0YxDwlqQev3JHEjADM8l II6iV3c MCTsDQden6K2yZG3Y0XlhsQ idc2sy7fkWYSdJPznB39zxO Xgq9E0SLYmgVA3XNSteDfiT iBzaG93 Oyc+GODwuKyea5VeUkktu0a eu6tfuSs3VghaANPlfwFumF qxUVM8a7RsGd3jZZLijJI2r NR8vF0k KdTkEiN7JOyvW735UyTtcQO wAxgyC40tR8EbmJJ+PHRyPj m1CUEunIsyDE1bM3KpCRIpx mctbGVm zZqpGR2pPFEggvxjFSQvkB2 pPYOxJ4l9QaUvRwB6REizH9 AsISSspkglPz85wD8bMnFlG jF2DHrl F2EnqvI4GUJjtODmKZngLWZ 2T66tr2I9WPXaZHArYOK7xO O5yH9lkDqeyfegdRYfhWpds mVydGlj DQoyCPbvS674JQGilSviEvE vZGluZyBEYXRlOiAgMDYvMj EvMjAyNDwvdGQ+SCHvQDJ9x WxlPSAn wEIyDVyqGv6ygBwbiXzwQJ9 kQEHfvywrRNFtjY7bNBRxqE XlbWqtSJ2uIWVhqdibo571K iAxMHB0 QWCbtNEmJ7BpwP3dSnLwPIG lXYVhA8MznZMxSOenN603XJ soYqB3OHUszpPtF7SiIHBgu WduOiB0 m6U4Rk3Kh2JkscdsT2DwtUI xIePcWnbdEIl6P2PcKmiycS I+UX24HVSyZM81JIb1IQE0h WxlPSdi FTJiW4PeoG1zMdZsMWIkBCK kOyc+PHRhYmxlIHdpZHRoPS noGZRiWqDtbQzfTL8fCf4tU GVyLWNv eDcrnBHkPrDjz3suGPPqIYs wCO6tbKfkK0WoxQZ4EQHuh1 j5Yr94R11lG5NpdSM+PGNvb YY9eZU7 pR1lDyHyJbK8NBumP998OoY dfUBeIyxbm5bzt1fujXu2Mv D7YDQjivClvAsaVXO0p0DgW c14E60p IHdpZHRoPSIxNSUiIHZhbGl nuz2jjA0dXl4+SZCogRP2oJ N0jT2tIoTcWoB4FJsdB480T nRvcCIv Afqqz5ztw8qtiTm0XhDtRSH pzuPriSsdNYN2j0BcVw48V2 BbwXxwl0LyAlx7an06bWUem 0F2eUU7 H8OeYKRzpjsqrUElcTqtRZ5 oFYWmqlhfBGTubG2lNEBuT1 m1NjEcQcE1CEnvH8SsomP4U GJvbGQg LXNakZWTxC6qnqtxw4esleo eNfSeJEJfOTs9QSi2VKGpxV pkTdSqKWY2ZjE5JYG8uUCcm Y4aaBck tuogaD7vGlu+GYE7sBTraQV VVF7dLagodSI+CDPpDCF4lC ylDIjyGRGovK0tCKRpI0v9G iAwLjA1 HFitL1StqxF3IPGoaVGsFDX dmEMJhP9hovzkt8yhkxpgKn OvNBFkPLl1IFh1BPMvzJgzC iBsZWZ0 GuV8VEI1lGGsaJ8nrNnhegi vjO0lQxa+JpyznNioOQF1RA y7D2YrKqw8ETZekIylDN4as GFkZGlu Fr6lbJbzfQesBO0xWKIqojy ej500LwPub7uwZQCacEUuZY alUYE5B92yh6D0KNOtRFVhF WF9qAJ0 eH4ecNavbhwaxJMgsNxrzaO yyFgiPJphOMhxE875FLNkeB muWePjAZh2Y2IxIew7IQMth MbwHS3m aVPoSOnnJx7okMsdrZmdXX6 rSDNfcxany818SnTcm2ahKI ElcBFyWNxvDEL0T61kv3W5L CMwMDAw KUA3tNC2vC7ilChgwlvurDW mdDsgdmVydGljYWwtYWxpZ2 80TZVdgCbuWwLrsUd9K0CsC eb2ZMHl gAopQN2syLZpJNkuKb5caVh ilRhsUE3hUCGrbfjpe302Pc Iel7jgAIPzfRLtEWaiYKE5O 91dg8B1 VVZtKWKvFRD3fPZ3nW0trEe nbjogbGVmdDsgdmVydGljYW ddMLwwD245UZNuxHzkTxRzf GllbnQg CUecQVk5E2FyIeykeHG+PC9 9FGEhHF71bLCdaIZri5cgsK p7AeDtJTGpZQH8gCtcBXfwq 3JkZXIt O50ncHTfg5O2DTSleYxyqDP pZbUosSY1nJ5cVUzwgjncb6 chrkwrZfjgh7kpap96tK83D 29sIHdp ZHRoPSIzMCUiIHZhbGlnbj0 mxL6fDl5+QPAljZX2sHC7tA 5xBMXnLvN3SPmvI979SzYgq CIvPjxj p4xox8isrHp4QyF2HPMvsgQ uoEbqJPS1r0MyLu99Q65yVB dpZHRoPSIyMCUiIHZhbGlnb i3okR5x Ii8+IDYbzGE0tXK6gL8pZdF uUeQ7KOwaB550MpKkxEOoCh vzN56wV3FzePY+TJVoAqy6W CBzdHls RU1ghDZzPJflBc3bKJO5RgM eVaUpLEpkF7WiXUEpuhikip dokZV1HEKdIRKjuY07Gw4wj DogMTBw lFIPbO7dadaoc9zqdxpiSpR xTTVzXSh8YNb9MRHnkWqtRp HnPNJ9HgD9LOW7zIIxmV3wy Glnbjog tM5vY6WwGBBkhsqxIn10oZ6 sPzAfNeI8UEpzXxt+UFVDS0 SWKFwzHCTLLAtNWKHNMM86U N13bHZn s3Z6iAZ5P3WwKDIxfkjqbyg xkJN8URMhFVCcjA41bKKnDQ niCa6vo3O5t979HHBoZCCeu R31Ey8p qZcxFITkkGZSmX0oputid3r morcfZeHsGEQoDOj6LGk1JP VbdDixJzPgNZL5WpC2JUV7v ITlxP9j sNoqjdnluH2mRho+MDYvMTI tCUi2CXbvcYM+IVVdQKV4zY kgWVehRJYyzI4iBKCaK9a1O iAwLjA1 BUsxK2LmOSNvseizYa44uF3 cWbHfGdT0UUjcZ6LiduO8YN BfnPRhCHqsTTF1M02re0U8G CMwMDAw BCV2fGE8dA1inZdqeopzoLR mdDsgdmVydGljYWwtYWxpZ2 18FYFatSkbOrB8XDpsQKAiE K73DC09 kDNub5W4uKZ4Q2TfUCIvdsb qmxqgmLO4CYBvVRLolL16zL PcFNsvLo8jl8Y1v635YRFfC DUwaW47 Qd0umPmcDCMsmCMLlU4ivbw ez1gjjtbkFhWkYAXqYLb7UH k3UFHhbZccAoUmVQE2ZpL5Z PE3tHJg cD2bpLvochamvT0cZbg+RmV zCIpzLE62OP17vMHec2L4mC P2O6AxVBHqnyinnvbzxTV1W DAuMDUw wH29qRGrVMayNm6ln1T6n20 3DZMyNXXctN73Zp0iqTerJZ FapMTNnD3zvmuzs3dmpgidP zAwMDAw WRl6KQf5AZZbgIwrJlCiHJT 7VvP8QPN8uWLuaI4iwVlfkr zztU7eBjz+KN4ojnatgrR2K E27QL57 J5JtOwyqyIGjgTQ+PHRhYmx lIHdpZHRoPScxMDAlJyBzdH ikXQ0rIj3fNWLrXMXytGytb HNlOiBj x0fiLXGmGVexRA7zvWtzK0Y abZO2BRKrx6w5Lp96A48pT8 JvdXA+WCPckUI1bLQ8fB7aF zAlIiB2 NBvjE825OqPcxEYsKvbtf4e sg6irkYm4OiJoLGLmmuOhfU eqGPX4o0HpJg77C31zSIonE HRoPSIy CZTgFBOsmUwzqj6tgW1fGy8 +GVXdwXZ8vQO9tG1eSpRpTm O7VWffL645RcEkpPWyDvodU 16oD3Do dXA+KXNbKdi8UCTupVhdQK8 wlVYxSYceBw2hASB5DnEoGq ZmWKyyX1HiPCLfyxdkwnbls WX8XHKx SNHtfY99Ue8ihLnoDa3iHMJ oOPY1SPNtqECgD1UleM1ySx OvGTIuDNPgA0LqvTXySVklX 246IGxl KiC4KLYveoVtQ9AgHMTvpSn xIpI1q9P6Se9VqXjjvLXzNW 3lEgKxTXz5O8CiYhp5VBFjb DzuYH8h mXZnOQmbAx8xwZqhkRejIC7 rGJIlbpvbr245YtTtf6lwPK PyyBGnNVsnODI9I65rv0B8W CMwMDAw RMZ9hDJ8zB2egKhuhwztfXF mdDsgdmVydGljYWwtYWxpZ2 22RXBikGitTzSSGfo2V6SzW sk4ORIv pIvuWD7vpDKqDEqiEt0ayZq vrKpnAG2vWUQxxqiun390Xi Orf2ijCJVunMGmWTjnBPV8B 67od6G5 DXQhYSDaHCB8pVI1lS1ylVs nbjogbGVmdDsgdmVydGljYW ubQSmcQ729GYXpqUdbJp9BC ey0K5Xk Zlv1HYInmLavNP4olQQxUAe bUp6iwJxlqHkhBX8rHVTizf vyh782ZxGeg6wcWNUbcBZpJ GltZXM7 O31ri7I8MJOrPDZjYQD7cGS 6kG5swTfgduvgePFkzKoctu SmnDhsDNcjIHdqA256EXUtz DsnPlBh eWVyOjwvdGQ+NM51ea58B3C eWkqxHsw7KOZiBHC9xKJ2cN 1pPJHkETqvx6I0vLS1P2Ujk eGbsb2r h8csGAFmCCwsO (more content not included)... Normal [facility] Discharge Instructionson Discharge Instructions [id number]#1.00T IFF Normal [facility] ED Clinical Summaryon 2023 ED Clinical Summary (Inserted Image. Paola ble to display) [place] [id number] ED Clinical Summary Person Information Name: SCARLET DURAND [place] Age: 24 Years : 2000 Sex: Female Language: Paraguayan PCP: DOREEN HA CNP Marital Status: Phone: [phone] Visit Id: Visit Reason: Medical problem - [...] 01/13/2024 00:47:46 01/13/2024 00:47:46 01/13/2024 00:47:46 ADDRESS: [facility] [address] [facility] [phone] PHYS DOC NOTES: MEDICAL INFORMATION: Prescriptions Given: [...] 0. PATIENT EDUCATION INFORMATION: Instructions: Sore Throat, Oefq-fs-Qvdl Follow up: With: Address: When: DOREEN LELAND [place], [place] [id number] Business (1) In 3 days 01/16/2024 Comments: You can use ibuprofen, Tylenol every 6 hours as needed for pain. Please follow-up with your primary care doctor next 2 to 3 days for further evaluation management. Please return to the ED for any new or worsening symptoms. DIAGNOSIS: Sore throat Normal [facility] ED Note-Physicianon 01-13-20 ED Note-Physician Basic Information [...] and Complexity of Problems Differential Diagnosis: [] [facility] Data External documents reviewed: [] My [...] HA In 3 days 01/16/2024 EDT [address] [place] [address]- Business (1) Additional Instructions: You can use ibuprofen, Tylenol every 6 hours as needed for pain. Please follow-up with your primary care doctor next 2 to 3 days for further evaluation management. Please return to the ED for any new or worsening symptoms. Patient Education Sore Throat, Wjiv-fo-Hxvy Problem List/Past Medical History Ongoing Adult BMI [...] Living situ (more content not included)... Normal [facility] Comment on above: Result Comment: Elec tronically Signed By: Aleta Oliveira DO.pedro\Date and Time Signed: 01/13/24 00:45 EDT ED [...] these instructions at home: Medicines ? Take rbbs-qgq-affzowf and prescription medicines only as told by [...] and water are not available, use hand plant operations vice president. Contact a doctor if: ? You have [...] can cause a sore throat. ? Take snmz-bcv-nwbekgm medicines only as told by your doctor. [...] provider. Document Revised: 10/10/2021 Document Reviewed: 10/10/2021 [employer] Patient Education ? 2022 [employer]. Normal [facility] ED Patient Summaryon 024 ED Patient Summary (Inserted Image. Paola ble to display) [place] [id number] Patient Discharge Instructions Person Information Name: SCARLET DURAND Age: 24 Years Arrival Date: 01/12/2024 23:46:16 Discharge Diagnosis: Sore throat Primary Care Physician: DOREEN HA CNP Provider Information Primary Provider: Aleta Oliveira DO Advanced Cable Tool Operator:None The exam and treatment you received in the Emergency Department were for an urgent problem and are not intended as complete care. It is important that you follow up with a doctor, nurse practitioner, or physician?s undertaker assistant for ongoing care. If your symptoms [...] Instructions: With: Address: When: [place] [address] Business (1) In 3 days 01/16/2024 Comments: [...] participating provider. Patient Education Materials: Sore Throat, Btcs-vu-Dkjd A MESSAGE TO ALL PATIENTS REGARDING OPIOIDS PRESCRIPTION OPIOIDS: WHAT YOU NEED TO KNOW Prescription opioids can be used to help relieve sqdsoglm-ko-ejwgmw pain and are often prescribed following a [...] learn a (more content not included)... Normal [facility] Grp A Strp PCRon 01-13-2024 Grp A Strp Intrl Ctrl Pass Normal Fis [facility] Comment on above: Order Comment: Order Added on by Discern Rule. Performed By: #### 1 [id number] #### [facility] Laboratory [address] [place] [address] S. pyogenes DNA RENÉE+probe Ql (Throat) Negative Normal [facility] Comment on above: Order Comment: Order Added on by Discern Rule. Result Comment: Test ing performed using DNA amplification. Performed By: #### 1 [id number] #### [facility] Laboratory [address] [place] [address] MICRO OTHER TESTSOrdered By: Joann Mendez on 01-13-2024 S. pyogenes Ag IA.rapid Ql (Throat) Negative (01/13/24 12:23 AM) Normal Negative [facility] Prescriptions/Work Noteson 0 01-13-2024 Prescriptions/Work Notes [id number]#1.00T IFF Normal [facility] Rapid Strep w/rfxon 01-13-20 S. pyogenes Ag IA.rapid Ql (Throat) Negative Normal Negative [facility] Comment on above: Performed By: #### 2 [id number] #### [facility] Laboratory [address] [place] [address] Consent for Treatmenton 12-26 Consent for Treatment [id number]#1.00T IFF Normal [facility] Discharge Instructionson Discharge Instructions [id number]#1.00 TIFF Normal [facility] ED Clinical Summaryon 2023 ED Clinical Summary (Inserted Image. Paola ble to display) [address] [address] ED Clinical Summary Person Information Name: SCARLET DURAND/[facility] Age: 24 Years : 2000 Sex: Female Language: Paraguayan PCP: DOREEN HA CNP Marital Status: Phone: [phone] Visit Id: Visit Reason: Hip pain-swelling; Leg [...] 01/07/2024 00:52:50 01/07/2024 00:52:50 01/07/2024 00:52:50 ADDRESS: [address] [place] [address] [address] [facility] [phone] PHYS DOC NOTES: MEDICAL INFORMATION: Prescriptions Given: [...] Follow up: With: Address: When: Khari Gomez [address] [place], [place] [id number] [facility] (7) In 3 days 01/10/2024 Comments: Call the [...] with orthopedic surgery. DIAGNOSIS: Knee sprain Normal [facility] ED Note-Nursingon 01-07-2024 ED Note-Nursing [id number]#1.00 TIFF Normal [facility] ED Note-Physicianon 01-07-20 ED Note-Physician Basic Information Time Seen: Bi Galeana DOJp 2024 23:42 Chief Complaint states twisted right [...] Gomez In 3 days 01/10/2024 EDT [address] [place] [address] [facility] (1) Additional Instructions: Call the office of [...] tab(s), Oral, (more content not included)... Normal [facility] Comment on above: Result Comment: Elec tronically Signed By: Bi Galeana DO.br\Date and Time Signed: 01/07/24 02:20 EDT ED [...] provider. Document Revised: 04/19/2022 Document Reviewed: 04/19/2022 [employer] Patient Education ? 2022 [employer]. Knee Sprain, Adult A knee sprain is [...] this condition (more content not included)... Normal [facility] ED Patient Summaryon 024 ED Patient Summary (Inserted Image. Paola ble to display) [place] [id number] Patient Discharge Instructions Person Information Name: SCARLET DURAND Age: 24 Years Arrival Date: 2024 23:13:12 Discharge Diagnosis: Knee sprain Primary Care Physician: DOREEN HA CNP Provider Information Primary Provider: Bi Galeana DO Advanced Cable Tool Operator:None The exam and treatment you received in the Emergency Department were for an urgent problem and are not intended as complete care. It is important that you follow up with a doctor, nurse practitioner, or physician?s undertaker assistant for ongoing care. If your symptoms become worse or you do not improve as expected and you are unable to reach your usual health care provider, you should return to the Emergency Department. We are available 24 hours a day. SCARLET DURAND has been given the following list of patient education materials, prescriptions and follow-up instructions: Follow-up Instructions: With: Address: When: Khari Brown [address] [place] [address], [place] [address] Business (1) In 3 days 01/10/2024 Comments: Call the [...] opioids can be used to help relieve rucammka-xr-efqnfw pain and are often prescribed following a [...] Never se (more content not included)... Normal [facility] XR Knee Complete 4+ Views [place] 01-07-2024 XR Knee Complete 4+ Views [...] REPORT Dictated: 01/07/2024 10:37 am Edmond Newby MD. Signed (Electronic Signature): 01/07/2024 10:37 am Signed by: Edmond Newby MD Transcribed by: SURINDER Technologist: MARY ALICE Technical Comments Radiation Dose: Ka,r in mGy = na DAP = na Normal [facility] Consent for Treatmenton 12-26 Consent for Treatment [id number]#1.00T IFF Normal [facility] Consent for Treatmenton 08-29 Consent for Treatment [id number]#1.00T IFF Normal [facility] Discharge Instructionson Discharge Instructions [id number]#1.00T IFF Normal [facility] ED Clinical Summaryon 2023 ED Clinical Summary (Inserted Image. Paola ble to display) [address] [address] ED Clinical Summary Person Information Name: SCARLET DURAND [facility] Age: 23 Years : 2000 Sex: Female Language: Paraguayan PCP: DOREEN HA CNP Marital Status: Phone: [phone] Visit Id: Visit Reason: Fever; Vomiting; Nausea; [...] 09/23/2023 11:27:04 09/23/2023 11:27:04 09/23/2023 11:27:04 ADDRESS: [address] [place] [address] [address] [facility] [phone] PHYS DOC NOTES: MEDICAL INFORMATION: Prescriptions Given: New Medications [facility], [address], [place] [id number], [phone] dextromethorphan-promet hazine (dextromethorphan-prome thazine 15 mg-6.25 mg/5 mL Oral Syrup 5 mL) 5 Milliliter By Mouth every 6 hours as needed for cough for 5 Days. Refills: 0. Medications to Continue Taking That Have Changed [facility], [address], [place] [id number], [phone] START: ondansetron (Zofran ODT 4 mg Tab-Dis) [...] Adult Follow up: With: Address: [place]: [place] [address] [employer] (1) In 3 days 09/26/2023 DIAGNOSIS: Flu-like symptoms; Vomiting Normal [facility] ED Note-Physicianon 09-23-19 ED Note-Physician Basic Information [...] for 5 day(s), 200 mL, Refill(s) 0, [facility], 162, cm, 09/23/23 8:58:00 EST, Height/Length Dosing, 121.6, kg, 09/23/23 8:58:00 EST, Weight Dosing ondansetron, 4 mg = 1 tab(s), Tab-Dis, Oral, Once, Stop date 09/23/23 8:55:00 EST, STAT, Start date 09/23/23 8:55:00 EST, 09/23/23 8:55:00 EST ondansetron, 4 mg = 1 tab(s), Oral, TID, # 15 tab(s), Refills(s) 0, Pharmacy: [facility], 162, cm, 09/23/23 8:58:00 EST, Height/Length [...] DOREEN HA In 3 days 09/26/2023 EST [address] [place] [address] [facility] (1) Additional Instructions: Patient Education Viral Illness, [...] made to ensure accuracy, however, inadvertently computerized component assembler mistakes may be present. Appropriate healthcare PPE [...] management De (more content not included)... Normal [facility] Comment on above: Result Comment: Elec tronically Signed By: Lukas Hernnadez PA-C\.br\Date and Time Signed: 09/23/23 11:18 EST\.br\Electronically [...] Medicines to relieve symptoms. These can include uwri-zgi-omgtfcj medicine for pain and fever, medicines for cough or congestion, and medicines to relieve diarrhea. ? Antiviral medicines. These medicines are available only for certain types of viruses. Some viral illnesses can be prevented with vaccinations. A common example is the flu shot. Follow these instructions at home: Medicines ? Take mddt-hrz-zqkfawp and prescription medicines only as told by [...] water are (more content not included)... Normal [facility] ED Patient Summaryon 024 ED Patient Summary (Inserted Image. Paola ble to display) [address] [address] Patient Discharge Instructions Person Information Name: SCARLET DURAND Age: 23 Years Arrival Date: 09/23/2023 08:35:20 Discharge Diagnosis: Flu-like symptoms; Vomiting Primary Care Physician: DOREEN HA CNP Provider Information Primary Provider: Ashley Faustin M.D. Advanced Cable Tool Operator:Lukas Hernandez PA-C The exam and treatment you received in the Emergency Department were for an urgent problem and are not intended as complete care. It is important that you follow up with a doctor, nurse practitioner, or physician?s undertaker assistant for ongoing care. If your symptoms [...] Follow-up Instructions: With: Address: When: DOREEN HA [address] [place] [address] [place] [address] Business (1) In 3 days 09/26/2023 In the event that this physician does not participate in your insurance network, please consult with your insurance company to find a nearby participating provider. Patient Education Materials: Viral Illness, Adult A MESSAGE TO ALL PATIENTS REGARDING OPIOIDS PRESCRIPTION OPIOIDS: WHAT YOU NEED TO KNOW Prescription opioids can be used to help relieve gkvgaxzu-og-vpkurk pain and are often prescribed following a [...] be struggling with addiction, tell your health nanny caregiver and ask for guidance or call [facility]?S National Helpline at 2-364-626- (more content not included)... Normal [facility] Prescriptions/Work Noteson 0 09-23-2023 Prescriptions/Work Notes [id number]#1.00T IFF [facility] Discharge Instructionson Discharge Instructions [id number]#1.00T IFF [facility] Consent for Treatmenton 07-29 Consent for Treatment [id number]#1.00T IFF Normal [facility] ED Clinical Summaryon 2023 ED Clinical Summary (Inserted Image. Paola ble to display) [place] [id number] ED Clinical Summary Person Information Name: SCARLET DURAND [place] Age: 23 Years : 2000 Sex: Female Language: Paraguayan PCP: DOREEN HA CNP Marital Status: Phone: [phone] Visit Id: Visit Reason: Ear pain; RIGHT [...] AD[address]ESS: [address] [facility] [id number] PHYS DOC NOTES: MEDICAL INFORMATION: Prescriptions Given: New Medications [facility], [address] [place], [place] [id number], [phone] amoxicillin-clavulanate (Augmentin 875 mg-125 mg Tab) 1 [...] Adult Follow up: With: Address: When: [address] [place] [address] Business (1) In 3 days 08/25/2023 Comments: Follow-up with your primary care provider in 3 to 5 days. If symptoms worsen, do not improve, or new symptoms arise please report back to emergency department for further evaluation. DIAGNOSIS: Left otitis media Normal [facility] ED Note-Physicianon 08-22-19 ED Note-Physician Basic Information [...] and Complexity of Problems Differential Diagnosis: [] [facility] Data External documents reviewed: [] My [...] in the chair. She does have left-sided [place] media on exam. Right ear is okay. [...] for 10 day(s), 20 tab(s), Refill(s) 0, [facility], 162, cm, 08/22/23 22:19:00 EST, Height/Length [...] HA In 3 days 08/25/2023 EST [address] [place] [address]- Business (1) Additional Instructions: Follow-up with your primary care provider in 3 to 5 days. If symptoms worsen, do not improve, or new symptoms arise please report back to emergency department for further evaluation. Patient Education Otitis Media, Adult Attestation Patient seen and evaluated by the physician undertaker assistant. Attending physician was present in the emergency department and supervised care. This visit was performed by both the physician and an APC. I performed all aspects of the MDM as documented. This report was transcribed using voice recognition software. Every effort was made to ensure accuracy, however, inadvertently computerized component assembler mistakes may be present. Appropriate healthcare PPE [...] Mental disorder (more content not included)... Normal [facility] Comment on above: Result Comment: Elec tronically [...] Follow these instructions at home: ? Take ngwo-jws-msknayg and prescription medicines only as told by [...] Reviewed: 10/22/2021 Elsevier Patient Education ? 2022 [employer] Normal [facility] [place] ED Patient Summaryon 024 ED Patient Summary (Inserted Image. Paola ble to display) [address] [address] Patient Discharge Instructions Person Information Name: SCARLET DURAND Age: 23 Years Arrival Date: 08/22/2023 22:11:28 Discharge Diagnosis: Left otitis media Primary Care Physician: DOREEN HA CNP Provider Information Primary Provider: Aleta Oliveira DO Advanced Cable Tool Operator:None The exam and treatment you received in the Emergency Department were for an urgent problem and are not intended as complete care. It is important that you follow up with a doctor, nurse practitioner, or physician?s undertaker assistant for ongoing care. If your symptoms [...] Follow-up Instructions: With: Address: When: DOREEN HA [address] [place] [address] [place] [address] Business (1) In 3 days 08/25/2023 Comments: [...] opioids can be used to help relieve dbrqzyjt-ky-oplccz pain and are often prescribed following a [...] abuse and over (more content not included)... [facility] Consent for Treatmenton 06-29 Consent for Treatment [id number] IFF [facility] Discharge Instructionson Discharge Instructions [id number] TIFF [facility] ED Clinical Summaryon 2022 ED Clinical Summary (Inserted Image. Paola ble to display) [address] [address] ED Clinical Summary Person Information Name: SCARLET DURAND/[facility] Age: 23 Years : 2000 Sex: Female Language: Paraguayan PCP: DOREEN HA CNP Marital Status: Phone: [phone] Visit Id: Visit Reason: Breast Lump ? [...] ADDRESS: [address] [facility] [id number] PHYS DOC NOTES: MEDICAL INFORMATION: Prescriptions Given: New Medications [facility], [address] [place], [place] [id number], [phone] sulfamethoxazole-trimet hoprim (Bactrim D.S. 800 mg-160 mg Tab) 1 Tablets By Mouth 2 times a day. Refills: 0. Medications to Continue Taking That Have Changed [facility], [address] [place], [place] [id number], [phone] START: ondansetron (Zofran ODT 4 mg Tab-Dis) [...] 0. PATIENT EDUCATION INFORMATION: Instructions: Cellulitis, Adult, Quuw-ih-Ipai Follow up: With: Address: When: DOREEN HA [address] [place] [address] Business (1) In 3 days 07/30/2023 Comments: [...] for any worsening symptoms. DIAGNOSIS: Cellulitis Normal [facility] ED Note-Physicianon 07-27-20 ED Note-Physician Basic Information [...] and Complexity of Problems Differential Diagnosis: [] [facility] Data External documents reviewed: [] My [...] q8hr, # 12 tab(s), Refills(s) 0, Pharmacy: [facility], 163, cm, 07/27/23 21:11:00 EST, Height/Length [...] tab(s), Oral, BID, 20 tab(s), Refill(s) 0, [facility], 163, cm, 07/27/23 21:11:00 EST, Height/Length [...] DOREEN HA In 3 days 07/30/2023 EST [address] [facility] [place] [address]- Business (1) Additional Instructions: Take the antibiotics [...] any worsening symptoms. Patient Education Cellulitis, Adult, Edky-qu-Kfam Problem List/Past Medical History Ongoing Adult BMI [...] Medications Inpatie (more content not included)... Normal [facility] Comment on above: Result Comment: Elec tronically [...] these instructions at home: Medicines ? Take cmoi-lgr-jxykxul and prescription medicines only as told by [...] Reviewed: 04/25/2022 Elsevier Patient Education ? 2022 [employer]. Normal [facility] ED Patient Summaryon 023 ED Patient Summary (Inserted Image. Paola ble to display) [address] [address] Patient Discharge Instructions Person Information Name: SCARLET DURAND Age: 23 Years Arrival Date: 07/27/2023 20:59:24 Discharge Diagnosis: Cellulitis Primary Care Physician: DOREEN HA CNP Provider Information Primary Provider: Aleta Oliveira DO Advanced Cable Tool Operator:None The exam and treatment you received in the Emergency Department were for an urgent problem and are not intended as complete care. It is important that you follow up with a doctor, nurse practitioner, or physician?s undertaker assistant for ongoing care. If your symptoms [...] Follow-up Instructions: With: Address: When: DOREEN HA [address] [place] [address] [place] [address] Business (1) In 3 days 07/30/2023 Comments: [...] participating provider. Patient Education Materials: Cellulitis, Adult, Mbea-zr-Ssnu A MESSAGE TO ALL PATIENTS REGARDING OPIOIDS PRESCRIPTION OPIOIDS: WHAT YOU NEED TO KNOW Prescription opioids can be used to help relieve gjgdguxw-ad-ebfwim pain and are often prescribed following a [...] them down (more content not included)... Normal [facility] ED Note-Physicianon 07-26-20 23 ED Note-Physician Basic Information Time Seen: Greyson [...] pallor noted. Nurse Evan BRADEN was my account auditor throughout the encounter. Along the patient's medial [...] and Complexity of Problems Differential Diagnosis: [] [facility] Data External documents reviewed: [] My [...] did perform with nurse Gordon as my account auditor, appears to be a cellulitis on the [...] day(s), # 28 cap(s), Refills(s) 0, Pharmacy: [facility], 163, cm, 07/25/23 20:26:00 EST, Height/Length Dosing, 123.3, kg, 07/25/23 20:26:00 EST, Weight Dosing Medications Administered Given Keflex 500 mg Cap, 500 mg, Oral Disposition Plan Patient Discharge Condition Stable Discharge Disposition To home Discharge Prescription List Prescriptions Keflex 500 mg Cap, 500 mg= 1 cap(s), Oral, q6hr Follow-up With When Contact Information DOREEN LELAND In 3 days 07/28/2023 EST [address] [place] [address]- Business (1) Additional Instructions: Follow-up with your primary care provider in 3 to 5 days. If symptoms worsen, do not improve, or new symptoms arise please report back to emergency department for further evaluation. Patient Education Cellulitis, Adult, Ihgh-zn-Ofmw Attestation Patient seen and evaluated by the physician undertaker assistant. Attending physician was present in the emergency department and supervised care. This visit was performed by both the physician and an APC. I performed all aspects of the MDM as documented. This report was transcribed using voice recognition software. Every effort was made to ensure accuracy, however, inadvertently computerized component assembler mistakes may be present. Appropriate healthcare PPE was used in evaluating this patient. The patient was placed in a mask. The healthcare provider was wearing mask, gloves, and utilizing proper hand hygiene. All equipment was properly cleansed. Problem List/Past Medical History Ongoing Adult BMI 40.0-44.9 kg/sq m Anxiety (more content not included)... Normal [facility] Comment on above: Result Comment: Elec tronically Signed By: Miguelito Rubi PA-C\.br\Date and Time Signed: 07/25/23 23:28 EST\.br\Electronically Co-Signed By: Kosta Carter MD\.br\Date and Time Co-Signed: 07/26/23 05:22 EST Consent for Treatmenton 06-28 Consent for Treatment [id number] IFF Normal [facility] Discharge Instructionson Discharge Instructions [id number]#1.00 TIFF Normal [facility] ED Clinical Summaryon 2022 ED Clinical Summary (Inserted Image. Paola ble to display) [place] [id number] ED Clinical Summary Person Information Name: SCARLET DURAND [facility] Age: 23 Years : 2000 Sex: Female Language: Paraguayan PCP: DOREEN HA CNP Marital Status: Phone: [phone] Visit Id: Visit Reason: Breast Lump ? [...] ADDRESS: [address] [facility] [phone] PHYS DOC NOTES: MEDICAL INFORMATION: Prescriptions Given: New Medications [facility], [address] [place], [place] [id number], [phone] cephalexin (Keflex 500 mg Cap) 1 Capsules [...] 0. PATIENT EDUCATION INFORMATION: Instructions: Cellulitis, Adult, Ptcn-vj-Cxsw Follow up: With: Address: When: [place] [address] (1) In 3 days 07/28/2023 Comments: Follow-up with your primary care provider in 3 to 5 days. If symptoms worsen, do not improve, or new symptoms arise please report back to emergency department for further evaluation. DIAGNOSIS: Cellulitis of right breast Normal [facility] ED Patient Education Noteon 07-25-2023 ED Patient [...] these instructions at home: Medicines ? Take toye-nmh-evqidgu and prescription medicines only as told by [...] Reviewed: 04/25/2022 Elsevier Patient Education ? 2022 [employer]. Normal [facility] ED Patient Summaryon 023 ED Patient Summary (Inserted Image. Paola ble to display) [address] [address] Patient Discharge Instructions Person Information Name: SCARLET DURAND Age: 23 Years Arrival Date: 07/25/2023 20:21:00 Discharge Diagnosis: Cellulitis of right breast Primary Care Physician: DOREEN HA CNP Provider Information Primary Provider: Advanced Cable Tool Operator:None The exam and treatment you received in the Emergency Department were for an urgent problem and are not intended as complete care. It is important that you follow up with a doctor, nurse practitioner, or physician?s undertaker assistant for ongoing care. If your symptoms [...] Follow-up Instructions: With: Address: When: [place] [address] [facility] () In 3 days 07/28/2023 Comments: Follow-up with [...] participating provider. Patient Education Materials: Cellulitis, Adult, Hpxq-qz-Rsce A MESSAGE TO ALL PATIENTS REGARDING OPIOIDS PRESCRIPTION OPIOIDS: WHAT YOU NEED TO KNOW Prescription opioids can be used to help relieve pbsgmkkv-uj-ivvuie pain and are often prescribed following a [...] and overdo (more content not included)... Normal [facility] ED Note-Physicianon 07-16-20 ED Note-Physician Basic Information Time Seen: Rosana MONDRAGONNori Trish 07/13/2023 15:38 Chief Complaint Pt presents to [...] Nausea/Vomiting, # 12 tab(s), Refills(s) 0, Pharmacy: [facility], 163, cm, 07/13/23 15:31:00 EST, Height/Length [...] Information DOREEN HA In 3 days [address] [place] [address]- [facility] (1) Additional Instructions: Patient Education Vomiting, Adult Attestation Patient was treated and evaluated by the Physician Supervisor Mill. The attending physician was in the Emergency [...] Oral, q8h (more content not included)... Normal [facility] Comment on above: Result Comment: Elec tronically Signed By: Nori Wayne PA-C\.br\Date and Time Signed: 07/13/23 22:38 EST\.br\Electronically Co-Signed By: Ramin Ham, Ashley Ott\.br\Date and Time Co-Signed: 07/16/23 19:25 EST Grp A Strp PCRon 07-14-2023 Grp A Strp Intrl Ctrl Pass Normal [facility] Comment on above: Order Comment: Order Added on by Discern Rule. Performed By: #### 2 [id number] ####[facility] [address] [place] [address] S. pyogenes DNA RENÉE+probe Ql (Throat) Negative Normal [facility] Comment on above: Order Comment: Order Added on by Discern Rule. Result Comment: Test ing performed using DNA amplification. Performed By: #### 2 [id number] ####[facility] [address] [place] [address] Consent for Treatmenton 06-27 Consent for Treatment [id number] IFF Normal [facility] Discharge Instructionson Discharge Instructions [id number]#1.00 TIFF Normal [facility] ED Clinical Summaryon 2022 ED Clinical Summary (Inserted Image. Paola ble to display) [place] [id number] ED Clinical Summary Person Information Name: SCARLET DURAND/[facility] Age: 23 Years : 2000 Sex: Female Language: Paraguayan PCP: DOREEN HA CNP Marital Status: Phone: [phone] Visit Id: Visit Reason: Diarrhea; Nausea and [...] 18:03:07 07/13/2023 18:03:07 07/13/2023 18:03:07 ADDRESS: [address] [facility] [id number] PHYS DOC NOTES: MEDICAL INFORMATION: Prescriptions Given: New Medications [facility], [address] [place], [place] [id number], [phone] ondansetron (Zofran ODT 4 mg Tab-Dis) 1 [...] Follow up: With: Address: When: DOREEN LELAND [address] [place] [address] Business (1) In 3 days DIAGNOSIS: 1:Nausea, vomiting and diarrhea; Diarrhea, unspecified Normal [facility] ED Patient Education Noteon 07-13-2023 ED Patient [...] pharmacies and retail stores. ? Eat bland, jift-yi-fmbfki foods in small amounts as you are [...] and water are not available, use hand plant operations vice president. ? Make sure that everyone in your household washes their hands frequently. ? Take peoa-uuk-bapyzjv and prescription medicines only as told by [...] and water are not available, use hand plant operations vice president. ? Watch your condition for any changes and for signs of dehydration. ? Keep all follow-up visits. This is important. This information is not intended to replace advice given to you by your health care provider. Make sure you discuss any questions you have with your health care provider. Document Revised: 01/18/2022 Document Reviewed: 01/18/2022 Elsevier Patient Education ? 2022 [employer] Normal [facility] ED Patient Summaryon 023 ED Patient Summary (Inserted Image. Paola ble to display) [place] [id number] Patient Discharge Instructions Person Information Name: SCARLET DURAND Age: 23 Years [facility]: [id number] Arrival Date: 07/13/2023 15:21:36 Discharge Diagnosis: 1:Nausea, vomiting and diarrhea; Diarrhea, unspecified Primary Care Physician: DOREEN HA CNP Provider Information Primary Provider: Ashley Faustin M.D. Advanced Cable Tool Operator:Nori Wayne PA-C The exam and treatment you received in the Emergency Department were for an urgent problem and are not intended as complete care. It is important that you follow up with a doctor, nurse practitioner, or physician?s undertaker assistant for ongoing care. If your symptoms [...] Follow-up Instructions: With: Address: When: [address] [place] [id number] Business (1) In 3 days In the event that this physician does not participate in your insurance network, please consult with your insurance company to find a nearby participating provider. Patient Education Materials: Vomiting, Adult A MESSAGE TO ALL PATIENTS REGARDING OPIOIDS PRESCRIPTION OPIOIDS: WHAT YOU NEED TO KNOW Prescription opioids can be used to help relieve tdimdhht-at-tryqrz pain and are often prescribed following a [...] be struggling with addiction, tell your health nanny caregiver and ask for guidance or call [employer]?S National Helpline (more content not included)... Normal [facility] MICRO OTHER TESTSOrdered By: Marie Torres on 07-13-2023 S. pyogenes Ag IA.rapid Ql (Throat) Negative (07/13/23 4:29 PM) Normal Negative [facility] Man Sero Rapid Strep w/rfxon 07-13-20 S. pyogenes Ag IA.rapid Ql (Throat) Negative Normal Negative [facility] Comment on above: Performed By: #### 2 [id number], [id number] ####[facility] [address] [place] [address] Consent for Treatmenton 05-28 Consent for Treatment [id number]#1.00T IFF Normal [facility] Discharge Instructionson Discharge Instructions [id number]#1.00T IFF Normal [facility] ED Clinical Summaryon 2022 ED Clinical Summary (Inserted Image. Paola ble to display) [address] [address] ED Clinical Summary Person Information Name: SCARLET DURAND [facility] Age: 23 Years : 2000 Sex: Female Language: Paraguayan PCP: DOREEN HA CNP Marital Status: Phone: [phone] Visit Id: Visit Reason: Foot pain-swelling; LEFT [...] ADDRESS: [address] [facility] [id number] PHYS DOC NOTES: MEDICAL INFORMATION: Prescriptions Given: Medications to Continue Taking That Have Changed [facility], [address] [place], [place] [id number], [phone] START: naproxen (Naprosyn 500 mg Tab) 1 [...] Follow up: With: Address: When: Occupational Health: [facility] [phone] In 3 days 06/16/2023 DIAGNOSIS: Foot contusion Normal [facility] ED Note-Physicianon 06-13-20 ED Note-Physician Basic Information Time Seen: Lukas Hernandez PA-C 06/13/2023 17:18 Chief Complaint Pt works at [employer] and dropped a pallet on her L [...] a workers comp claim and is given [employer] health followup. Patient was encouraged to return to the ED if symptoms worsen or change. Splinting procedure Patient was placed in Luiz wrap and post op shoe by nursing staff. Remains neurovascular intact. Assessment/Plan Foot contusion (S90.30XA: Contusion of unspecified foot, initial encounter) Orders: naproxen, 500 mg = 1 tab(s), Oral, BID, # 20 tab(s), Refills(s) 0, Pharmacy: [facility], 163, cm, 06/13/23 17:20:00 EST, Height/Length [...] Follow-up With When Contact Information Occupational Health: [facility] [phone] In 3 days 06/16/2023 EST Additional Instructions: Patient Education Foot Contusion Attestation Patient seen and evaluated by the physician undertaker assistant. Attending physician was present in the emergency department and supervised care. This visit was performed by both the physician and an APC. I performed all aspects of the MDM as documented. This report was transcribed using voice recognition software. Every effort was made to ensure accuracy, however, inadvertently computerized component assembler mistakes may be present. Appropriate healthcare PPE [...] grandparent. Ron (more content not included)... Normal [facility] Comment on above: Result Comment: Elec tronically [...] may be recommended to support your foot. Veyk-lkq-ygeqlbm anti-inflammatory medicines may also be recommended for [...] or lying down. General instructions ? Take nden-mwr-pkthijr and prescription medicines only as told by [...] provider. Document Revised: 10/17/2021 Document Reviewed: 10/17/2021 [employer] Patient Education ? 2022 [employer] Normal [facility] ED Patient Summaryon 023 ED Patient Summary (Inserted Image. Paola ble to display) [place] [id number] Patient Discharge Instructions Person Information Name: SCARLET DURAND Age: 23 Years Arrival Date: 06/13/2023 17:02:41 Discharge Diagnosis: Foot contusion Primary Care Physician: DOREEN HA CNP Provider Information Primary Provider: Bi Galeana DO Advanced Cable Tool Operator:Lukas Hernandez PA-C The exam and treatment you received in the Emergency Department were for an urgent problem and are not intended as complete care. It is important that you follow up with a doctor, nurse practitioner, or physician?s undertaker assistant for ongoing care. If your symptoms [...] Follow-up Instructions: With: Address: When: Occupational Health: [facility] [phone] In 3 days 06/16/2023 In the event that this physician does not participate in your insurance network, please consult with your insurance company to find a nearby participating provider. Patient Education Materials: Foot Contusion A MESSAGE TO ALL PATIENTS REGARDING OPIOIDS PRESCRIPTION OPIOIDS: WHAT YOU NEED TO KNOW Prescription opioids can be used to help relieve jwmoictz-tp-ykayxz pain and are often prescribed following a [...] be struggling with addiction, tell your health nanny caregiver and ask for guidance or call [facility] National Helpline at 1-772-667-LYOX. j Source: Department of Health and Human Services/[place] (more content not included)... Normal [facility] Workers Comp Formson 023 Workers Comp Forms [id number]#1.00T IFF Normal [facility] XR Foot 3+ Views Lefton 05-28 XR [...] SURINDER Technologist: GREGORY Technical Comments Radiation Dose: Ka,r in mGy = na DAP = na Normal [facility] Consenton 05-15-2023 Consent [id number]#1.00 TIFF Normal [facility] Registrationon 05-15-2023 Registration [id number]#1.00 TIFF Normal [facility] Consent for Treatmenton 03-29 Consent for Treatment [id number]#1.00C D:127 Normal [facility] Discharge Instructionson Discharge Instructions [id number]#1.00 CD:127 Normal [facility] ED Clinical Summaryon 2022 ED Clinical Summary (Inserted Image. Paola ble to display) [place] [id number] ED Clinical Summary Person Information Name: SCARLET DURAND [facility] Age: 23 Years : 2000 Sex: Female Language: Paraguayan PCP: NONE, XXXX Marital Status: Phone: [phone] Visit Id: Visit Reason: Throat pain - [...] ADDRESS: [address] [facility] [id number] PHYS DOC NOTES: MEDICAL INFORMATION: Prescriptions Given: New Medications [facility], [address] [place], [place] [id number], [phone] azithromycin (azithromycin 250 mg Tab 5-day Dose [...] Follow up: With: Address: When: Daniella Floyd [address] [place], [place] [phone] Textádo (1) In 3 days 04/27/2023 DIAGNOSIS: Pharyngitis Normal [facility] ED Note-Physicianon 04-24-20 ED Note-Physician Basic Information [...] day(s), # 6 tab(s), Refills(s) 0, Pharmacy: [facility], 163, cm, 04/24/23 9:56:00 EDT, Height/Length [...] Daniella Floyd In 3 days 04/27/[address] [place] [phone] Business (1) Additional Instructions: Patient Education Pharyngitis Attestation Patient seen and evaluated by the physician undertaker assistant. Attending physician was present in the emergency department and supervised care. This visit was performed by both the physician and an APC. I performed all aspects of the MDM as documented. This report was transcribed using voice recognition software. Every effort was made to ensure accuracy, however, inadvertently computerized component assembler mistakes may be present. Appropriate healthcare PPE [...] Alcohol Use, (more content not included)... Normal [facility] Comment on above: Result Comment: Elec tronically [...] these instructions at home: Medicines ? Take ivlu-arx-kwuepmw and prescription medicines only as told by [...] and water are not available, use hand plant operations vice president. ? Do not touch your eyes, nose, [...] is a (more content not included)... Normal [facility] ED Patient Summaryon 023 ED Patient Summary (Inserted Image. Paola ble to display) [address] [address] Patient Discharge Instructions Person Information Name: SCARLET DURAND Age: 23 Years Arrival Date: 04/24/2023 09:32:05 Discharge Diagnosis: Pharyngitis Primary Care Physician: NONE, XXXX Provider Information Primary Provider: Ashley Faustin M.D. Advanced Cable Tool Operator:Lukas Hernandez PA-C The exam and treatment you received in the Emergency Department were for an urgent problem and are not intended as complete care. It is important that you follow up with a doctor, nurse practitioner, or physician?s undertaker assistant for ongoing care. If your symptoms become worse or you do not improve as expected and you are unable to reach your usual health care provider, you should return to the Emergency Department. We are available 24 hours a day. SCARLET DURAND has been given the following list of patient education materials, prescriptions and follow-up instructions: Follow-up Instructions: With: Address: When: [place] [phone] Business (1) In 3 days 04/27/2023 In the event that this physician does not participate in your insurance network, please consult with your insurance company to find a nearby participating provider. Patient Education Materials: Pharyngitis A MESSAGE TO ALL PATIENTS REGARDING OPIOIDS PRESCRIPTION OPIOIDS: WHAT YOU NEED TO KNOW Prescription opioids can be used to help relieve qcaieptl-ny-eemlxv pain and are often prescribed following a [...] be struggling with addiction, tell your health nanny caregiver and ask for guidance or call [facility]?S National Helpline at 7-525-282-HELP. v Source: [facility] and (more content not included)... Normal [facility] Vit D 1,25on 04-01-2023 1,25-dihydroxyvitamin D [Mass/Vol] 35.9 pg/mL Invalid Interpretation Code 24.8-81.5 [facility] Comment on above: Result Comment: Perf ormed at: [facility] [address] [id number] MD Enrike Oglesby Performed By: #### 1 2558394, 6193753, 77685599, 9463022, 8207580, 5302514, 18692643, 0942250 ####[facility] [address] [place] [address] Auto Diffon 03-27-2023 Basophils/100 WBC (Bld) 0.4 % Normal 0.0-2.0 F [facility] Comment on above: Order Comment: Order Added by Discern Expert. Performed By: #### 1 4203890, 7573705, 01298651, 7700082, 0258860, 8079381, 22926717, 4303492 ####[facility] [address] [place] [address] Basophils/Leukocytes Auto (Bld) [Pure # fraction] 0.0 E9/L Normal 0.0-0.2 [facility] Comment on above: Order Comment: Order Added by Discern Expert. Performed By: #### 1 9400105, 7702247, 32385008, 1369575, 2823137, 7704012, 99607623, 2304790 ####[facility] [address] [place] [address] Eosinophils/100 WBC (Bld) 0.8 % Normal 0.0-8.0 [facility] Comment on above: Order Comment: Order Added by Trista Expert. Performed By: #### 1 8742006, 0215609, 50045868, 2209636, 2443815, 2817434, 90113195, 3035299 ####[facility] [address] [place] [address] Eosinophils/Leukocytes Auto (Bld) [Pure # fraction] 0.1 E9/L Normal 0.0-0.5 [facility] Comment on above: Order Comment: Order Added by Discern Expert. Performed By: #### 1 7688141, 0112615, 36258039, 4609203, 6631589, 0824851, 89452588, 2534748 ####[address] [place] [address] Lymphocytes/100 WBC (Bld) 26.4 % Normal 14.0-50.0 [facility] Comment on above: Order Comment: Order Added by Trista Expert. Performed By: #### 1 3885685, 9295554, 57118103, 2220599, 4774497, 4918207, 70979848, 0284536 ####[address] [place] [address] Lymphocytes/Leukocytes Auto (Bld) [Pure # fraction] 2.3 E9/L Normal 1.0-4.0 [facility] Comment on above: Order Comment: Order Added by Trista Expert. Performed By: #### 1 2625617, 4143923, 88424510, 6757555, 7053393, 2395139, 49475470, 0447961 ####[facility] [address] [place] [address] Monocytes/100 WBC (Bld) 4.5 % Normal 4.0-14.0 [facility] Comment on above: Order Comment: Order Added by Trista Expert. Performed By: #### 1 6942142, 5881215, 67999710, 2162320, 2990520, 7140231, 98888384, 8565127 ####[address] [place] [address] Monocytes/Leukocytes Auto (Bld) [Pure # fraction] 0.4 E9/L Normal 0.2-1.0 [facility] Comment on above: Order Comment: Order Added by Discern Expert. Performed By: #### 1 8186743, 0747003, 54193781, 2110420, 0625746, 0581242, 06430774, 7542540 ####[address] [place] [address] Neutrophils/100 WBC (Bld) 67.9 % Normal 36.0-75.0 [facility] Comment on above: Order Comment: Order Added by Discern Expert. Performed By: #### 1 0898694, 3763332, 10047471, 0550548, 1069119, 7533165, 27605487, 6566526 ####[address] [address] Neutrophils/Leukocytes Auto (Bld) [Pure # fraction] 5.9 E9/L Normal 2.0-7.5 [facility] Comment on above: Order Comment: Order Added by Discern Expert. Performed By: #### 1 1841051, 0911418, 38026985, 9375154, 1382566, 6964712, 02063059, 8001409 ####[address] [address] CBC w/ Auto Diffon 3 Erythrocyte distribution width (RBC) [Ratio] 15.4 % High 10.9-14.2 [facility] Comment on above: Performed By: #### 1 8506006, 0743125, 48796088, 3001057, 0234316, 8559167, 68024389, 7132575 ####[address] [place] [address] Hematocrit (Bld) [Volume fraction] 36.9 % Normal 34.0-46.0 [facility] Comment on above: Performed By: #### 1 0463677, 0444271, 87368423, 9993408, 7642335, 8578191, 24393657, 8777025 ####[address] [place] [address] Hemoglobin (Bld) [Mass/Vol] 11.8 g/dL Low 12.0-16.0 [facility] Comment on above: Performed By: #### 1 6101191, 1620233, 02302683, 0669416, 5938272, 9358242, 80800267, 7399022 ####[facility] [address] [place] [address] MCH (RBC) [Entitic mass] 24.9 pg Low 27.0-34.0 [facility] Comment on above: Performed By: #### 1 5043850, 2347221, 34639831, 6301628, 3129916, 4483443, 47597620, 2480879 ####[facility] [address] [place] [address] MCHC (RBC) [Mass/Vol] 31.9 g/dL Normal 31.4-36.0 [facility] Comment on above: Performed By: #### 1 7093787, 3068601, 61136023, 3336436, 3055235, 9987308, 63584482, 9856328 ####[address] [address] MCV (RBC) [Entitic vol] 78.2 fL Low 80.0-100.0 F [facility] Comment on above: Performed By: #### 1 6834436, 2930037, 04730657, 7673735, 4927955, 3008594, 57701965, 6385415 ####[facility] [address] [place] [address] Platelet mean volume (Bld) [Entitic vol] 9.9 fL Normal 6.4-10.8 [facility] Comment on above: Performed By: #### 1 8996567, 1280197, 89762472, 7766116, 8546152, 9230746, 72972935, 5071033 ####[address] [address] Platelets (Bld) [#/Vol] 365.0 E9/L Normal 150.0-500.0 [facility] Comment on above: Performed By: #### 1 3333512, 9826575, 98532099, 9576105, 4186913, 7503159, 20874374, 2941497 ####[facility] [address] [place] [address] RBC (Bld) [#/Vol] 4.7 E12/L Normal 4.3-5.9 [facility] Comment on above: Performed By: #### 1 9537584, 3316886, 06763294, 9810557, 3402592, 2338601, 36271336, 8738646 ####[facility] [address] [place] [address] WBC corrected for nucl RBC Auto (Bld) [#/Vol] 8.8 E9/L Normal 4.0-11.0 [facility] Comment on above: Performed By: #### 1 0859982, 8881788, 31387489, 1050069, 2449295, 3350556, 61551414, 5852000 ####[facility] [address] [place] [address] CMPon 03-27-2023 Albumin [Mass/Vol] 3.6 g/dL Normal 3.3-5.0 [facility] Comment on above: Performed By: #### 1 0453419, 1142738, 47597537, 7902769, 5089444, 2620929, 28649036, 8729833 ####[facility] [address] [place] [address] Albumin/Globulin (S) [Mass conc ratio] 1.0 Low 1.1-2.2 [facility] Comment on above: Performed By: #### 1 2697953, 2729734, 98525613, 2465536, 8309796, 2573371, 28440005, 0145868 ####[facility] [address] [place] [address] ALP [Catalytic activity/Vol] 61 Int._Unit/L Normal 21-98 [facility] Comment on above: Performed By: #### 1 0888181, 2456796, 25794990, 1236912, 3159842, 9807912, 48009251, 6370298 ####[facility] [address] [place] [address] ALT No additional P-5'-P [Catalytic activity/Vol] 14 Int._Unit/L Normal 6-46 [facility] Comment on above: Performed By: #### 1 7028149, 9629649, 95182499, 3902886, 5011860, 9388436, 72219238, 6466416 ####[facility] [address] [place] [address] Anion gap [Moles/Vol] 10 mmol/L Normal 6-16 [facility] Comment on above: Performed By: #### 1 6890213, 7738151, 33380336, 2964195, 0803311, 1254691, 95408274, 9237970 ####[facility] [address] [place] [address] AST [Catalytic activity/Vol] 15 Int._Unit/L Normal 5-43 [facility] Comment on above: Performed By: #### 1 5871962, 8516373, 53593749, 2495912, 1560958, 1999100, 56949647, 2394039 ####[facility] [address] [place] [address] Bilirubin [Mass/Vol] 0.5 mg/dL Normal 0.0-1.[address] [facility] Comment on above: Performed By: #### 1 7766699, 6619691, 29454361, 8610101, 8113060, 3738117, 31923567, 7964463 ####[facility] [address] [place] [address] Calcium [Mass/Vol] 9.4 mg/dL Normal 8.9-11.1 [facility] Comment on above: Performed By: #### 1 3879410, 0414719, 34100690, 0458426, 2120024, 1712463, 16945217, 5203424 ####[facility] [address] [place] [address] Chloride [Moles/Vol] 106 mmol/L Normal 101-[address] [facility] Comment on above: Performed By: #### 1 1947545, 3950628, 11481761, 7415261, 7809601, 6169324, 10604745, 9980971 ####[facility] [address] [place] [address] CO2 [Moles/Vol] 27 mmol/L Normal 21-31 [facility] Comment on above: Performed By: #### 1 9618977, 6886545, 14870992, 8170386, 3588670, 9295999, 84851587, 7504465 ####[facility] [address] [place] [address] Creatinine [Mass/Vol] 0.7 mg/dL Normal 0.5-1.3 [facility] Comment on above: Performed By: #### 1 5844137, 9786344, 95398576, 1850460, 9239266, 0589458, 39847042, 5332040 ####[facility] [address] [place] [address] Globulin (S) [Mass/Vol] 3.7 g/dL Normal 1.4-4.0 [facility] Comment on above: Performed By: #### 1 3456022, 1254523, 35085837, 8113457, 2520948, 1574007, 13864134, 6701346 ####[facility] [address] [place] [address] Glucose [Mass/Vol] 84 mg/dL Normal 55-199 [facility] Comment on above: Result Comment: If t his glucose result represents a fasting glucose, interpretation should refer to the following reference range: 55-99 mg/dL Performed By: #### 1 3679022, 7475341, 61843087, 9642298, 9976589, 0472116, 44730084, 9196812 ####[facility] [address] [place] [address] Potassium [Moles/Vol] 4.2 mmol/L Normal 3.5-5.3 [facility] Comment on above: Performed By: #### 1 6340262, 6639247, 72710924, 2758588, 9849783, 4658946, 69909873, 9414651 ####[facility] [address] [place] [address] Protein [Mass/Vol] 7.3 g/dL Normal 6.0-7.8 [facility] Comment on above: Performed By: #### 1 6245149, 1838960, 17152220, 7312257, 3030718, 8006497, 51907610, 1657737 ####[facility] [address] [place] [address] Sodium [Moles/Vol] 139 mmol/L Normal 135-145 [facility] Comment on above: Performed By: #### 1 0241912, 4229559, 70019536, 2486666, 9342967, 4394842, 69184177, 2135983 ####[facility] [address] [place] [address] Urea nitrogen [Mass/Vol] 10 mg/dL Normal 5-21 [facility] Comment on above: Performed By: #### 1 0875600, 8986482, 10449393, 9587634, 4489759, 5000903, 57595800, 1552578 ####[facility] [address] [place] [address] Urea nitrogen/Creatinine [Mass ratio] 14 No Units Normal 10-20 [facility] Comment on above: Performed By: #### 1 7563220, 5577348, 33401817, 5822981, 7176327, 8083952, 85695674, 0459352 ####[facility] [address] [place] [address] Lipid Panelon 03-27-2023 Cholesterol [Mass/Vol] 204 mg/dL High 120-200 [facility] Comment on above: Performed By: #### 1 7275359, 7173463, 29154612, 6368633, 1377009, 2070184, 76624918, 7111307 ####[facility] [address] [place] [address] Cholesterol in HDL [Mass/Vol] 37 mg/dL Invalid Interpretation Code [facility] Comment on above: Result Comment: HDL > or equal to 60 mg/dL: Low cardiovascular risk HDL < 40 mg/dL : High cardiovascular risk Performed By: #### 1 7458332, 2586750, 67339452, 2225681, 0199281, 2705268, 98374958, 5897619 ####[facility] [address] [place] [address] Cholesterol in LDL [Mass/Vol] 145 mg/dL High <=129 [facility] Comment on above: Performed By: #### 1 7641516, 1401105, 39439570, 3136331, 6474516, 7099784, 12605087, 1482320 ####[facility] [address] [place] [address] Cholesterol in VLDL [Mass/Vol] 41 mg/dL High 7-40 [facility] Comment on above: Performed By: #### 1 5268991, 9606111, 05892378, 5013586, 3952737, 2269016, 60360963, 7682458 ####[facility] [address] [place] [address] Triglyceride [Mass/Vol] 203 mg/dL High <=149 F [facility] Comment on above: Performed By: #### 1 3167695, 1541095, 97704747, 5217685, 9462874, 2452500, 82779190, 3069736 ####[facility] [address] [place] [address] Morphon 03-27-2023 Morphology Rashawn (Bld) [Interp] See Morphology Normal [facility] Comment on above: Order Comment: Order Added by Discern Expert. Performed By: #### 1 1639874, 7425023, 09317109, 6468197, 1608062, 8620773, 91676467, 3051183 ####[facility] [address] [place] [address] Physician Orderon 03-27-2023 Physician Order [id number] CD:127 Normal [facility] TSHon 03-27-2023 TSH Qn 1.21 m[IU]/L Normal 0.34-5.60 [facility] Comment on above: Performed By: #### 1 4962878, 6469682, 07192419, 9333452, 5888663, 0779245, 79621431, 2924937 ####[facility] [address] [place] [address] eGFRon 03-27-2023 GFR/1.73 sq M.predicted among non-blacks MDRD (S/P/Bld) [Vol rate/Area] 123 mL/min/1.73 m2 Normal >=59 [facility] Comment on above: Order Comment: Order added by Discern Expert. Result Comment: [facility] [facility] daryl kidney disease could be indicated at eGFR's of less than 60 mL/min/1.73m2. Kidney failure is indicated at less than 15 mL/min/1.73m2. Performed By: #### 1 4922034, 6437240, 20802596, 6763604, 6533587, 7259889, 76498155, 2318907 ####[facility] [address] [place] [address] Consent for Treatmenton Consent for Treatment [id number] D:127 Normal [facility] Discharge Instructionson Discharge Instructions [id number] CD:127 Normal [facility] ED Clinical Summaryon 2022 ED Clinical Summary (Inserted Image. Paola ble to display) [address] [address] ED Clinical Summary Person Information Name: SCARLET DURAND [facility] Age: 23 Years : 2000 Sex: Female Language: Paraguayan PCP: ORLANDO PACE MD Marital Status: Phone: [phone] Visit Id: Visit Reason: Back pain; BACK [...] 02/27/2023 11:07:26 02/27/2023 11:07:26 02/27/2023 11:07:26 ADDRESS: [address] [place] [address] [address] [facility] [id number] PHYS DOC NOTES: MEDICAL INFORMATION: Prescriptions Given: New Medications [facility], [address] [place], [place] [id number], [phone] methylPREDNISolone (Medrol 4 mg Tab) 1 Packets [...] Follow up: With: Address: When: ORLANDO PACE [address] [place] [address] In 3 days 03/02/2023 Comments: Call the [...] worsening symptoms. DIAGNOSIS: Pain in back Normal [facility] ED Note-Physicianon 02-28-20 ED Note-Physician Basic Information [...] day(s), # 21 tab(s), Refills(s) 0, Pharmacy: [facility], 163, cm, 02/27/23 10:56:00 EDT, Height/Length Dosing, 118, kg, 02/27/23 10:56:00 EDT, Weight Dosing Disposition Plan Patient Discharge Condition Stable Discharge Disposition Home Discharge Prescription List Prescriptions Medrol 4 mg Tab, 1 packet(s), Oral, As Directed Follow-up With When Contact Information ORLANDO PACE In 3 days 03/02/2023 EDT [address] [place] [address]- Additional Instructions: Call the office of your [...] 1 diso (more content not included)... Normal [facility] Comment on above: Result Comment: Michel okeefeally Signed By: Bi Galeana DO\.br\Date and Time [...] as you can. Do not try to pickle maker a heavy object that is far from [...] carrying a (more content not included)... Normal [facility] ED Patient Summaryon 023 ED Patient Summary (Inserted Image. Paola ble to display) [place] [id number] Patient Discharge Instructions Person Information Name: SCARLET DURAND Age: 23 Years Arrival Date: 02/27/2023 10:49:40 Discharge Diagnosis: Pain in back Primary Care Physician: ORLANDO PACE MD Provider Information Primary Provider: Bi Galeana DO Advanced Cable Tool Operator:None The exam and treatment you received in the Emergency Department were for an urgent problem and are not intended as complete care. It is important that you follow up with a doctor, nurse practitioner, or physician?s undertaker assistant for ongoing care. If your symptoms [...] Follow-up Instructions: With: Address: When: ORLANDO PACE [address] [place] [address] In 3 days 03/02/2023 Comments: Call the [...] opioids can be used to help relieve omckigwz-pu-egempk pain and are often prescribed following a [...] involve prescription opioids. (more content not included)... [facility] Consent for Treatmenton 12-27 Consent for Treatment [id number] D:127 Normal [facility] Discharge Instructionson Discharge Instructions [id number] CD:127 [facility] ED Clinical Summaryon 2022 ED Clinical Summary (Inserted Image. Paola ble to display) [place] [id number] ED Clinical Summary Person Information Name: SCARLET DURAND [facility] Age: 23 Years : 2000 Sex: Female Language: Paraguayan PCP: ORLANDO PACE MD Marital Status: Phone: [phone] Visit Id: Visit Reason: Neck pain; Back [...] 01/14/2023 11:31:32 01/14/2023 11:31:32 01/14/2023 11:31:32 ADDRESS: [address] [place] [address] [address] [facility] [id number] [facility] DOC NOTES: MEDICAL INFORMATION: Prescriptions Given: New Medications [facility], [address] [place] [id number], [phone] methocarbamol (Robaxin-750 oral tablet) 1 Tablets By Mouth 3 times a day for 7 Days. Refills: 0. Medications to Continue Taking That Have Changed [facility] [address], [address] [place] [id number], [phone] START: naproxen (naproxen 500 mg Tab) 1 [...] Instructions: Neck Exercises; Muscle Cramps and Spasms, Wrdt-zu-Blgt Follow up: With: Address: When: ORLANDO PACE [address] [place] [address] In 3 days DIAGNOSIS: Neck muscle spasm; Neck pain Normal [facility] ED Note-Physicianon 01-15-20 ED Note-Physician Basic Information [...] or worsen. I, Dr. Rivera had a cqlt-im-keyo interaction with the patient. I personally performed a physical exam and medical decision making. I have verified the documentation by the student as accurately representing the information obtained. Shared decision making: Code status: Assessment/Plan Neck muscle spasm (M62.838: Other muscle spasm) Neck pain (M54.2: Cervicalgia) Orders: methocarbamol, 750 mg = 1 tab(s), Oral, TID, X 7 day(s), # 21 tab(s), Refills(s) 0, Pharmacy: [facility], 160, cm, 01/14/23 10:35:00 EDT, Height/Length Dosing, 121, kg, 01/14/23 10:35:00 EDT, Weight Dosing naproxen, 500 mg = 1 tab(s), Oral, BID, Take one tab by mouth two times a day, # 14 tab(s), Refills(s) 0, Pharmacy: [facility], 160, cm, 01/14/23 10:35:00 EDT, Height/Length Dosing, 121, kg, 01/14/23 10:35:00 EDT, Weight Dosing XR Spine Cervical 2 or 3 Views Disposition Plan Discharge Prescription List Prescriptions naproxen 500 mg Tab, 500 mg= 1 tab(s), Oral, BID Robaxin-750 oral tablet, 750 mg= 1 tab(s), Oral, TID Follow-up With When Contact Information ORLANDO PACE In 3 days [address] [employer] [address]- Additional Instructions: Patient Education Neck Exercises Muscle Cramps and Spasms, Pcnk-qy-Obgy Problem List/Past Medical History Ongoing Adult BMI [...] tab(s), Or (more content not included)... Normal [facility] Comment on above: Result Comment: Elec tronically [...] This information (more content not included)... Normal [facility] ED Patient Summaryon 023 ED Patient Summary (Inserted Image. Paola ble to display) [place] [id number] Patient Discharge Instructions Person Information Name: SCARLET DURAND Age: 23 Years Arrival Date: 01/14/2023 10:29:10 Discharge Diagnosis: Neck muscle spasm; Neck pain Primary Care Physician: ORLANDO PACE MD Provider Information Primary Provider: Blake Rivera DO Advanced Cable Tool Operator:None The exam and treatment you received in the Emergency Department were for an urgent problem and are not intended as complete care. It is important that you follow up with a doctor, nurse practitioner, or physician?s undertaker assistant for ongoing care. If your symptoms [...] Follow-up Instructions: With: Address: When: ORLANDO PACE [address] [place] [address] In 3 days In the event that this physician does not participate in your insurance network, please consult with your insurance company to find a nearby participating provider. Patient Education Materials: Neck Exercises; Muscle Cramps and Spasms, Laeh-wq-Jkuv A MESSAGE TO ALL PATIENTS REGARDING OPIOIDS PRESCRIPTION OPIOIDS: WHAT YOU NEED TO KNOW Prescription opioids can be used to help relieve zszwjqbr-iy-ggcncj pain and are often prescribed following a [...] be struggling with addiction, tell your health nanny caregiver and ask for guidance or call [facility]?S National Helpline at 6-611-487-KQAR. e Source: [employer] of A's Child (more content not included)... Normal [facility] Prescriptions/Work Noteson 0 01-14-2023 Prescriptions/Work Notes [id number]#[id number] CD:127 Normal [facility] XR Spine Cervical 2 or 3 Vie [...] mGy = na DAP = na Normal [facility] CHEMISTRYOrdered By: SYSTEM SYSTEM on 11-27-2022 Albumin [...] - 7.5 E9/L [facility] HemeAutoSS HEMATOLOGYOrdered By: Allandrew Mendez on 11-27-2022 Erythrocyte distribution width (RBC) [...] PM) Normal Negative [facility] UA Auto SS Dobbins.plasma/Dobbins. RBC (Bld) [Mass ratio] 4-20 /HPF Normal 0-3/HPF [facility] A uto [...] Desc Clean Catch (11/27/22 9:45 PM) Normal [facility] Auto SS Urobilinogen Qn (U) 0.0666237 {Lei'U}/dL Normal 0.0 - 1.0 EU/dL [facility] UA Auto SS WBC Auto Ql (U) Negative (11/27/22 9:45 PM) Normal Negative [facility] UA Auto SS WBC LM.HPF (Urine sed) [#/Area] 0-5 /HPF Normal 0-5/HPF [facility] UA Auto SS HEMATOLOGYOrdered By: Lois Thomas on 11-07-2022 Anisocytosis Ql (Bld) Present (11/07/22 6:16 AM) Normal [facility]eManSS Erythrocyte distribution width (RBC) [Ratio] 16.3 % High 10.9 - 14.2 % [facility] Hematocrit (Bld) [Volume fraction] 29.1 % Low 34.0 - 46.0 % [facility] Hemoglobin (Bld) [Mass/Vol] 9.3 g/dL Low 12.0 - 16.0 gm/dL [facility] Hypochromia Auto Ql (Bld) Present (11/07/22 6:16 AM) Normal [facility] MCH (RBC) [Entitic mass] 24.6 pg Low 27.0 - 34.0 pg [facility] MCHC (RBC) [Mass/Vol] 31.9 g/dL Normal 31.4 - 36.0 gm/dL [facility] MCV (RBC) [Entitic vol] 77.1 fL Low 80.0 - 100.0 fL [facility] Morphology Rashawn (Bld) [Interp] See Morphology (11/07/22 6:16 AM) Normal [facility] Platelet mean volume (Bld) [Entitic vol] 8.4 fL Normal 6.4 - 10.8 fL [facility] Platelets (Bld) [#/Vol] 343.0 E9/L Normal 150. 0 - 500.0 E9/L [facility] RBC (Bld) [#/Vol] 3.8 E12/L Low 4.3 - 5.9 E12/L [facility] WBC corrected for nucl RBC Auto (Bld) [#/Vol] 13.1 E9/L High 4.0 - 11.0 E9/L [facility] HEMATOLOGYOrdered By: SYSTEM SYSTEM on 11-07-2022 [...] Normal >=59mL/min/ 1.73 m2 [facility] Chem S Potassium [Moles/Vol] 3.7 mmol/L Normal [...] Present (11/06/22 9:49 AM) Normal [facility]eManSS Erythrocyte distribution width (RBC) [Ratio] 16.4 [...] Present (11/06/22 9:49 AM) Normal [facility]eManSS RBC (Bld) [#/Vol] 4.6 E12/L Normal [...] 8.7 E9/L High 2.0 - 7.5 E9/L [facility] HemeAutoSS URINALYSISOrdered By: Naomie Wright on 11-06-2022 [...] Interpretation Code Negative [facility] UA Auto SS Dobbins.plasma/Dobbins. RBC (Bld) [Mass ratio] 0-3 /HPF Normal [...] [facility] UA Auto SS Urobilinogen Qn (U) 1.9658391 {Lei'U}/dL Normal 0.0 - 1.0 EU/dL [facility] [...] Interpretation Code Negative [facility] UA Auto SS Dobbins.plasma/Dobbins. RBC (Bld) [Mass ratio] 0-3 /HPF Normal [...] Desc Clean Catch (11/02/22 6:46 PM) Normal [facility] UA Auto SS Urobilinogen Qn (U) 1.6255462 {Lei'U}/dL Normal 0.0 - 1.0 EU/dL [facility] UA Auto SS WBC Auto Ql (U) Negative (11/02/22 6:46 PM) Normal Negative [facility] UA Auto SS WBC LM.HPF (Urine sed) [#/Area] 0-5 /HPF Normal 0-5/HPF [facility] UA Auto SS Amphetamine Screen Ql (U)Ord ered By: EVAN MOORE on 10-26-2022 Amphetamines Ql (U) Negative Negative [facility] Automated erythrocytes count in urine sediment (number/area)Ordered By: EVAN MOORE on 10-26-2022 RBC Auto (Urine sed) [#/Area] 3-4 [HPF] 0-4 [facility] Automated leukocytes count i n urine sediment (number/area)Ordered By: EVAN MOORE on 10-26-2022 WBC Auto (Urine sed) [#/Area] 20-49 [HPF] 0-4 [facility] Barbiturates [Presence] in U rine by Screen methodOrdered By: EVAN MOORE on 10-26-2022 Barbiturates Screen Ql (U) Negative Negative [facility] Basophils Auto (Bld) [#/Vol] Ordered By: EVAN MOORE on 10-26-2022 Basophils (Bld) [#/Vol] 0.0 10*3/uL 0.0-0.2 [facility] Basophils/100 WBC Auto (Bld) Ordered By: EVAN MOORE on 10-26-2022 Basophils/100 WBC (Bld) 0.4 % . [facility] Benzodiazepines Screen Ql (U )Ordered By: EVAN MOORE on 10-26-2022 Benzodiazepines Ql (U) Negative Negative [facility] Benzoylecgonine [Presence] i n Urine by Screen methodOrdered By: EVAN MOORE on 10-26-2022 Benzoylecgonine Screen Ql (U) Negative Negative [facility] Bilirubin Test strip Ql (U)O rdered By: EVAN MOORE on 04-01-2023 Bilirubin Ql (U) Negative Negative [facility] Color Auto (U)Ordered By: PEDRO MOORE on 10-26-2022 Color (U) Yellow Yellow [facility] Eosinophils Auto (Bld) [#/Vo l]Ordered By: EVAN MOORE on 10-26-2022 Eosinophils (Bld) [#/Vol] 0.0 10*3/uL 0.0-0.45 [facility] Eosinophils/100 WBC Auto (Bl d)Ordered By: EVAN MOORE on 10-26-2022 Eosinophils/100 WBC (Bld) 0.3 % . [facility] Erythrocyte distribution wid th Auto (RBC) [Ratio]Ordered By: EVAN MOORE on 10-26-2022 Erythrocyte distribution width (RBC) [Ratio] 15.8 % 11.9-15.3 [facility] Glucose Glucometer (BldC) [M ass/Vol]Ordered By: EVAN MOORE on 10-26-2022 Glucose [Mass/Vol] 91 mg/dL [facility] Comment on above: Random Glucose Refer ence Range is dependent on time and content of last meal. Glucose of more than 200 mg/dL in a nonstressed, ambulatory subject supports the diagnosis of Diabetes Mellitus. Hematocrit Auto (Bld) [Volum e fraction]Ordered By: EVAN MOORE on 10-26-2022 Hematocrit (Bld) [Volume fraction] 32.6 % 34.0-46.4 [facility] Hemoglobin [Mass/volume] in BloodOrdered By: EVAN MOORE on 10-26-2022 Hemoglobin (Bld) [Mass/Vol] 10.6 g/dL 11.8-15.4 [facility] Ketones Auto test strip (U) [Mass/Vol]Ordered By: EVAN MOORE on 10-26-2022 Ketones (U) [Mass/Vol] Negative Negative [facility] Laboratory - UrinalysisOrder ed By: EVAN MOORE on 10-26-2022 Hyaline casts LM Ql (Urine sed) 0-8 [LPF] 0-8 [facility] Leukocytes [#/volume] correc emmett for nucleated erythrocytes in Blood by Automated counOrdered By: EVAN MOORE on 10-26-2022 WBC corrected for nucl RBC Auto (Bld) [#/Vol] 10.6 10*3/uL 3.8-11.6 [facility] Lymphocytes Auto (Bld) [#/Vo l]Ordered By: EVAN MOORE on 10-26-2022 Lymphocytes (Bld) [#/Vol] 2.1 10*3/uL 1.00-4.8 [facility] Lymphocytes/100 WBC Auto (Bl d)Ordered By: EVAN MOORE on 10-26-2022 Lymphocytes/100 WBC (Bld) 19.8 % . [facility] MCH Auto (RBC) [Entitic mass ]Ordered By: EVAN MOORE on 10-26-2022 MCH (RBC) [Entitic mass] 25.1 pg 24.7-34.3 [facility] MCHC Auto (RBC) [Mass/Vol]Or dered By: EVAN MOORE on 10-26-2022 MCHC (RBC) [Mass/Vol] 32.5 g/dL 32.0-35.0 [facility] MCV Auto (RBC) [Entitic vol] Ordered By: EVAN MOORE on 10-26-2022 MCV (RBC) [Entitic vol] 77.4 fL 80-100 [facility] Monocytes Auto (Bld) [#/Vol] Ordered By: EVAN MOORE on 10-26-2022 Monocytes (Bld) [#/Vol] 0.5 10*3/uL 0.0-0.8 [facility] Monocytes/100 WBC Auto (Bld) Ordered By: EVAN MOORE on 10-26-2022 Monocytes/100 WBC (Bld) 4.6 % . [facility] Neutrophils Auto (Bld) [#/Vo l]Ordered By: EVAN MOORE on 10-26-2022 Neutrophils (Bld) [#/Vol] 7.9 10*3/uL 1.8-7.7 [facility] Neutrophils/100 WBC Auto (Bl d)Ordered By: EVAN MOORE on 10-26-2022 Neutrophils/100 WBC (Bld) 74.9 % . [facility] Nitrite Test strip Ql (U)Ord ered By: EVAN MOORE on 10-26-2022 Nitrite Ql (U) Negative Negative [facility] Nucleated erythrocytes [Pres ence] in Blood by Automated countOrdered By: EVAN MOORE on 10-26-2022 Nucleated RBC Auto Ql (Bld) 0.1 /100{WBC} 0-0.5 [facility] Opiates [Presence] in Urine by Screen methodOrdered By: EVAN MOORE on 10-26-2022 Opiates Screen Ql (U) Negative Negative [facility] Phencyclidine Screen Ql (U)O rdered By: EVAN MOORE on 10-26-2022 Phencyclidine Ql (U) Negative Negative [facility] Comment on above: These are unconfirme d results and should not be used for legal purposes. Drug Cut-Off Concentration: AMPH 1000 ng/mL ДМИТРИЙ 200 ng/mL SUAD 200 ng/mL COCM 300 ng/mL OP 300 ng/mL PCP 25 ng/mL Platelet mean volume Auto (B ld) [Entitic vol]Ordered By: EVAN MOORE on 10-26-2022 Platelet mean volume (Bld) [Entitic vol] 8.0 fL 6.3-10.7 [facility] Platelets Auto (Bld) [#/Vol] Ordered By: EVAN MOORE on 10-26-2022 Platelets (Bld) [#/Vol] 360 10*3/uL 150-450 [facility] Protein Auto test strip (U) [Mass/Vol]Ordered By: EVAN MOORE on 10-26-2022 Protein (U) [Mass/Vol] 30 mg/dL Negative [facility] RBC Auto (Bld) [#/Vol]Ordere d By: EVAN MOORE on 10-26-2022 RBC (Bld) [#/Vol] 4.21 10*6/uL 3.60-5.00 [facility] Reagin Ab [Presence] in Seru m by RPROrdered By: EVAN MOORE on 10-26-2022 Reagin Ab RPR Ql (S) Non-Reactive Non Reactive [facility] Comment on above: Performed at: [address] [id number] Director: Keith Pitts PhD, Phone: [phone] Specific gravity Auto test s trip (U) [Rel density]Ordered By: EVAN MOORE on 10-26-2022 Specific gravity (U) [Rel density] 1.018 1.001-1.030 [facility] Squamous epithelial cells de tection in urine sediment by light microscopyOrdered By: EVAN MOORE on 10-26-2022 Epithelial cells.squamous LM Ql (Urine sed) 5-9 [HPF] 0-2 [facility] Urine bacteria detection by automated methodOrdered By: EVAN MOORE on 10-26-2022 Bacteria Auto Ql (U) 3+ None Seen [facility] Urine clarity by refractomet ry automatedOrdered By: EVAN MOORE on 10-26-2022 Clarity Refractometry automated (U) Cloudy Clear [facility] Urine culture routineOrdered By: EVAN MOORE on 10-26-2022 Bacteria identified Cx Nom (U) 2 Days [facility] Urine glucose measurement by automated test strip (mass/volume)Ordered By: EVAN MOORE on 10-26-2022 Glucose Auto test strip (U) [Mass/Vol] Normal mg/dL Normal [facility] Urine hemoglobin detection b y automated test stripOrdered By: EVAN MOORE on 10-26-2022 Hemoglobin Auto test strip Ql (U) Negative Negative [facility] Urine leukocyte esterase det ection by automated test stripOrdered By: EVAN MOORE on 10-26-2022 Leukocyte esterase Auto test strip Ql (U) 3+ Negative [facility] Urobilinogen Auto test strip (U) [Mass/Vol]Ordered By: EVAN MOORE on 10-26-2022 Urobilinogen (U) [Mass/Vol] Normal mg/dL Normal [facility] WBC Auto (Bld) [#/Vol]Ordere d By: EVAN MOORE on 10-26-2022 WBC (Bld) [#/Vol] 10.6 10*3/uL 3.8-11.6 [facility] pH Auto test strip (U)Ordere d By: EVAN MOORE on 10-26-2022 pH (U) 7.0 [pH] 5.0-9.0 [facility] URINALYSISOrdered By: Hyun Sandoval on 10-20-2022 [...] Interpretation Code Negative [facility] UA Auto SS Dobbins.plasma/Dobbins. RBC (Bld) [Mass ratio] 0-3 /HPF Normal [...] [facility] UA Auto SS Urobilinogen Qn (U) 2.2078048 {Lei'U}/dL Invalid Interpretation Code 0.0 - 1.0 EU/dL [facility] UA Auto SS WBC Auto Ql (U) 1+ *ABN* (10/20/22 1:48 PM) Invalid Interpretation Code Negative [facility] UA Auto SS WBC LM.HPF (Urine sed) [#/Area] 0-5 /HPF Normal 0-5/HPF [facility] UA Auto SS Amphetamine Screen Ql (U)Ord ered By: Sanaz Mathur on 09-09-2022 Amphetamines Ql (U) Negative Negative [facility] Automated erythrocytes count in urine sediment (number/area)Ordered By: Sanaz Mathur on 09-09-2022 RBC Auto (Urine sed) [#/Area] 1-2 [HPF] 0-4 [facility] Automated leukocytes count i n urine sediment (number/area)Ordered By: Sanaz Mathur on 09-09-2022 WBC Auto (Urine sed) [#/Area] 20-49 [HPF] 0-4 [facility] Barbiturates [Presence] in U rineOrdered By: Sanaz Mathur on 09-09-2022 Barbiturates Ql (U) Negative Negative [facility] Benzodiazepines [Presence] i n UrineOrdered By: Sanaz Mathur on 09-09-2022 Benzodiazepines Ql (U) Negative Negative [facility] Bilirubin Test strip Ql (U)O rdered By: Sanaz Mathur on 09-09-2022 Bilirubin Ql (U) Negative Negative [facility] Casts typing in urine sedime nt by light microscopyOrdered By: Sanaz Mathur on 09-09-2022 Casts LM Nom (Urine sed) None seen [LPF] None Seen [facility] Color Auto (U)Ordered By: Nevaeh Mathur on 09-09-2022 Color (U) Dark yellow Yellow [facility] Ketones Auto test strip (U) [Mass/Vol]Ordered By: Sanaz Mathur on 09-09-2022 Ketones (U) [Mass/Vol] 4+ Negative [facility] Laboratory - Drug toxicology Ordered By: Sanaz Mathur on 09-09-2022 Opiates Ql (U) Negative Negative [facility] Laboratory - UrinalysisOrder ed By: Sanaz Mathur on 09-09-2022 Hyaline casts LM Ql (Urine sed) None seen [LPF] 0-8 [facility] Nitrite Test strip Ql (U)Ord ered By: Sanaz Mathur on 09-09-2022 Nitrite Ql (U) Negative Negative [facility] Phencyclidine Screen Ql (U)O rdered By: Sanaz Mathur on 09-09-2022 Phencyclidine Ql (U) Negative Negative [facility] Comment on above: These are unconfirme d results and should not be used for legal purposes. Drug Cut-Off Concentration: AMPH 1000 ng/mL ДМИТРИЙ 200 ng/mL SUAD 200 ng/mL COCM 300 ng/mL OP 300 ng/mL PCP 25 ng/mL Protein Auto test strip (U) [Mass/Vol]Ordered By: Sanaz Mathur on 09-09-2022 Protein (U) [Mass/Vol] 30 mg/dL [facility] Specific gravity Auto test s trip (U) [Rel density]Ordered By: Sanaz Mathur on 09-09-2022 Specific gravity (U) [Rel density] 1.029 1.001-1.030 [facility] Squamous epithelial cells de tection in urine sediment by light microscopyOrdered By: Sanaz Mathur on 09-09-2022 Epithelial cells.squamous LM Ql (Urine sed) 10-19 [HPF] 0-2 [facility] Urine bacteria detection by automated methodOrdered By: Sanaz Mathur on 09-09-2022 Bacteria Auto Ql (U) 2+ None Seen [facility] Urine clarity by refractomet ry automatedOrdered By: Sanaz Mathur on 09-09-2022 Clarity Refractometry automated (U) Cloudy Clear [facility] Urine cocaine detectionOrder ed By: Sanaz Mathur on 09-09-2022 Cocaine Ql (U) Negative Negative [facility] Urine culture routineOrdered By: Sanaz Mathur on 09-09-2022 Bacteria identified Cx Nom (U) 2 Days [facility] Urine glucose measurement by automated test strip (mass/volume)Ordered By: Sanaz Mathur on 09-09-2022 Glucose Auto test strip (U) [Mass/Vol] Normal mg/dL Normal [facility] Urine hemoglobin detection b y automated test stripOrdered By: Sanaz Mathur on 09-09-2022 Hemoglobin Auto test strip Ql (U) Negative Negative [facility] Urine leukocyte esterase det ection by automated test stripOrdered By: Sanaz Mathur on 09-09-2022 Leukocyte esterase Auto test strip Ql (U) 2+ Negative [facility] Urobilinogen Auto test strip (U) [Mass/Vol]Ordered By: Sanaz Mathur on 09-09-2022 Urobilinogen (U) [Mass/Vol] Normal mg/dL Normal [facility] pH Auto test strip (U)Ordere d By: Sanaz Mathur on 09-09-2022 pH (U) 6.0 [pH] 5.0-9.0 [facility] Office Visit (Family Medicin e)on 09-03-2022 [...] Status: Hold For - Scheduling Requested for: [id number] Patient Discussion/Summary Patient education provided. 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 Over the last 2 weeks have you felt down, depressed or hopeless? (If yes, answer PHQ-9 below)No PHQ-2 #2. Over the last 2 weeks have you felt little interest or pleasure in doing things? (If yes, answer PHQ-9 below)No Falls Screening (Age 18+)a) No falls within the last year O2 Nrawkrugpc84 Neck Mutvhqtebhmme25 Physical Exam General exam: Patient awake and [...] Sep 03 2022 10:21AM EST (Author) Normal [facility] Serum or plasma glucose tole mellisa 3 hours panelOrdered By: EVAN MOORE on 08-16-2022 Glucose tolerance 3 hours panel See comment [facility] Comment on above: FASTING 102 H Col: 0 08/16/22 0600 1HR GLU 192 Col: 08/16/22 0751 2HR GLU 111 Col: 08/16/22 0845 3HR GLU 119 Col: 08/16/22 0943 Hematocrit Auto (Bld) [Volum e fraction]Ordered By: EVAN MOORE on 08-09-2022 Hematocrit (Bld) [Volume fraction] 36.1 % 34.0-46.4 [facility] Hemoglobin [Mass/volume] in BloodOrdered By: EVAN MOORE on 08-09-2022 Hemoglobin (Bld) [Mass/Vol] 11.7 g/dL 11.8-15.4 [facility] No Panel InformationOrdered By: EVAN MOORE on 08-09-2022 Glucose 1 Hour Postprandial (Timed) 155 mg/dL 60-140 [facility] Streptococcus pyogenes antig en detectionOrdered By: Gary Candelario on 04-20-2022 S. pyogenes Ag Ql (Unsp spec) [facility] CHEMISTRYOrdered By: SYSTEM SYSTEM on 03-25-2022 [...] above: Result Comment: Slid e reviewed by [facility]. URINALYSISOrdered By: Atif Mendez [...] PM) Normal Negative [facility] UA Auto SS Dobbins.plasma/Dobbins. RBC (Bld) [Mass ratio] 0-3 /HPF Normal [...] [facility] UA Auto SS Urobilinogen Qn (U) 0.9727630 {Lei'U}/dL Normal 0.0 - 1.0 EU/dL [facility] UA Auto SS WBC Auto Ql (U) Negative (03/25/22 3:55 PM) Normal Negative [facility] UA Auto SS WBC LM.HPF (Urine sed) [#/Area] 0-5 /HPF Normal 0-5/HPF [facility] UA Auto SS Echocardiogramon 02-07-[address] [facility] , [address], [address], [place], [place] [address] and TRANSTHORACIC ECHOCARDIOGRAM REPORT Patient Name: SCARLET DURAND Reading Physician: [id number] Alejandro Castillo MD Study Date: 02/07/2022 Referring Physician: Mattie Lipscomb MRN/PID: [id number] PCP: Accession/Order#: [id number] Department Location: [facility] Date of : 2000 Fellow: Gender: F Nurse: Admit Date: Donor Recruiter: Mattie Collier RD Admission Status: Outpatient Additional Staff: Height: 162.56 cm CC Report to: Weight: 123.38 kg Study Type: Echocardiogram BSA: 2.23 m2 Blood Pressure: 129 /87 mmHg Diagnosis/ICD: R07.89-Other chest pain Indication: Atypical chest pain Procedure/CPT: Echo Complete w Full Doppler-[id number] Patient History: Pertinent History: Bipolar disorder; Schizophrenia; [...] PulmV A Revs Brett: 20.02 cm/s PulmV Menedz Brett: 36.87 cm/s PulmV S/D Brett: 0.95 PulmV Sys Brett: 35.07 cm/s AORTA: Asc Ao Diam 2.98 cm [id number] Alejandro Castillo MD Electronically signed on 02/07/2022 at 5:18:42 PM Final Normal [facility] CBCon 01-17-2022 RBC 5.26 x10E12/L High 4.00 - 5.20 [facility] Comment on above: Performed By: #### U [facility] #### [facility] [id number] [place] [address] CBCon 01-16-2022 Erythrocyte distribution width (RBC) [Ratio] 17.7 % High 11.5 - 14.5 [facility] erst Work Phone: Comment on above: Reference Range: 11. 5 - 14.5 Performed By: #### U RINC #### [facility] [address] [place] [address] Hematocrit (Bld) [Volume fraction] 43.5 % Normal 36.0 - 46.0 [facility] erst Work Phone: Comment on above: Reference Range: 36. 0 - 46.0 Performed By: #### U RINC #### [facility] [address] [place] [address] Hemoglobin (Bld) [Mass/Vol] 13.1 g/dL Normal 12.0 - 16.0 [facility] erst Work Phone: Comment on above: Reference Range: 12. 0 - 16.0 Performed By: #### U RINC #### [facility] [address] [place] [address] MCHC (RBC) [Mass/Vol] 30.1 g/dL Low 32.0 - 36.0 [facility] erst Work Phone: Comment on above: Reference Range: 32. 0 - 36.0 Performed By: #### U RINC #### [facility] [address] [place] [address] MCV (RBC) [Entitic vol] 83 fL Normal 80 - 100 M [facility] erst Work Phone: Comment on above: Performed By: #### U RINC #### [facility] [address] [place] [address] Platelets (Bld) [#/Vol] 406 10*3/uL Normal 150 - 450 [facility] erst Work Phone: Comment on above: Performed By: #### U RINC #### [facility] [address] [place] [address] WBC (Bld) [#/Vol] 11.8 10*3/uL High 4.4 - 11.3 MPJc bell [facility] erst Work Phone: Comment on above: Performed By: #### U [facility] #### [facility] [address] [place] [address] COMPREHENSIVE PANELon 2021 Albumin [Mass/Vol] 4.2 g/dL Normal 3.4 - 5.0 [facility] Comment on above: Performed By: #### C MP #### [address] [id number] ALP [Catalytic activity/Vol] 64 U/L Normal 33 - 110 [facility] Comment on above: Performed By: #### C MP #### [address] [id number] ALT [Catalytic activity/Vol] 12 U/L Normal 7 - 45 [facility] Comment on above: Result Comment: Joycelyn ents treated with Sulfasalazine may generate falsely decreased results for ALT. Performed By: #### C MP #### [address] [id number] Anion gap [Moles/Vol] 12 mmol/L Normal 10 - 20 [facility] Comment on above: Performed By: #### C MP #### [address] [id number] AST [Catalytic activity/Vol] 18 U/L Normal 9 - 39 [facility] Comment on above: Performed By: #### C MP #### [address] [id number] Bilirubin [Mass/Vol] 0.5 mg/dL Normal 0.0 - 1.2 [facility] Comment on above: Performed By: #### C MP #### [address] [id number] Calcium [Mass/Vol] 9.6 mg/dL Normal 8.6 - 10.3 [facility] Comment on above: Performed By: #### C MP #### [address] [id number] Chloride [Moles/Vol] 102 mmol/L Normal 98 - 107 [facility] Comment on above: Performed By: #### C MP #### [address] [id number] Creatinine [Mass/Vol] 0.66 mg/dL Normal 0.50 - 1.05 [facility] Comment on above: Performed By: #### C MP #### [address] [id number] eGFR FEMALE >90 Normal >90 [facility] Comment on above: Result Comment: CALC ULATIONS OF ESTIMATED GFR ARE PERFORMED USING THE 2020 CKD-EPI STUDY REFIT EQUATION WITHOUT THE RACE VARIABLE FOR THE IDMS-TRACEABLE CREATININE METHODS. https://jasn.asnjournals.org/content/early//ASN.2020 753120 Performed By: #### C MP #### [address] [id number] Glucose [Mass/Vol] 71 mg/dL Low 74 - 99 [facility] Comment on above: Performed By: #### C MP #### [address] [id number] HCO3 (Bld) [Moles/Vol] 27 mmol/L Normal 21 - 32 [facility] Comment on above: Performed By: #### C MP #### [address] [id number] Potassium [Moles/Vol] 4.1 mmol/L Normal 3.5 - 5.3 [facility] Comment on above: Performed By: #### C MP #### [address] [id number] Protein [Mass/Vol] 7.9 g/dL Normal 6.4 - 8.2 [facility] Comment on above: Performed By: #### C MP #### [address] [id number] Sodium [Moles/Vol] 137 mmol/L Normal 136 - 145 [facility] Comment on above: Performed By: #### C MP #### [facility] [address] [place], [place] [id number] Urea nitrogen [Mass/Vol] 13 mg/dL Normal 6 - 23 [facility] Comment on above: Performed By: #### C MP #### [facility] [address] [place], [place] [id number] Cult, Urineon 01-16-2022 Bacteria identified Cx Nom (U) Abnormal [facility] erst Work Phone: FERRITINon 01-16-2022 FERRITIN 122 ug/L Normal 8 - 150 [facility] Comment on above: Performed By: #### F ERRI #### [facility] [address] [place] [address] Ferritin, Serumon 01-16-2022 Ferritin [Mass/Vol] 122 ug/L 8 - 150 [facility] erst Work Phone: HEMOGLOBIN A1Con 01-16-2022 Glucose [Mass/Vol] 105 mg/dL Normal [facility] Comment on above: Performed By: #### U RINC #### [facility] [address] [place] [address] HbA1c (Bld) [Mass fraction] 5.3 % Normal [facility] Comment on above: Result Comment: Diag nosis of Diabetes-Adults Non-Diabetic: < or = 5.6% Increased risk for developing diabetes: 5.7-6.4% Diagnostic of diabetes: > or = 6.5% . Monitoring of Diabetes Age (y) Therapeutic Goal (%) Adults: >18 <7.0 Pediatrics: 13-18 <7.5 7-12 <8.0 0- 6 7.5-8.5 Citizen Of [place] Diabetes Association. Diabetes Care 33(S1), Jul 2009. Performed By: #### U RINC #### [facility] [address] [place] [address] Hemoglobin A1Con 01-16-2022 Glucose [Mass/Vol] 105 mg/dL [facility] erst Work Phone: HbA1c (Bld) [Mass fraction] 5.3 % [facility] Work Phone: Comment on above: Diagnosis of Diabete s-Adults Non-Diabetic: < or = 5.6% Increased risk for developing diabetes: 5.7-6.4% Diagnostic of diabetes: > or = 6.5%. Monitoring of Diabetes Age (y) Therapeutic Goal (%) Adults: >18 <7.0 Pediatrics: 13-18 <7.5 7-12 <8.0 0- 6 7.5-8.5 Citizen Of [place] Diabetes Association. Diabetes Care 33(S1), Jul 2009. IO UA (nonautomated w/o micr oscopy)on 01-16-2022 Protein (U) [Mass/Vol] Negative [facility] erst Work Phone: IO UA (nonautomated w/o microscopy) Normal (0.2-1.0 mg/dl) [facility] erst Work Phone: IO UA (nonautomated w/o microscopy) (+)small - 15 Abnormal [facility] Work Phone: IO UA (nonautomated w/o microscopy) Positive Abnormal [facility] Work Phone: IO UA (nonautomated w/o microscopy) 6.0 1 [facility] Work Phone: IO UA (nonautomated w/o microscopy) Negative [facility] Work Phone: IO UA (nonautomated w/o microscopy) 1.025 1 [facility] Work Phone: IO UA (nonautomated w/o microscopy) Hazy [facility] Work Phone: IO UA (nonautomated w/o microscopy) Yellow [facility] Work Phone: LIPID PANEL (CORONARY RISK 2 )on 01-16-2022 Cholesterol [Mass/Vol] 219 mg/dL High 0 - 199 [facility] Comment on above: Result Comment: . AGE [...] dosing. Performed By: #### L IPID #### [address] [id number] Cholesterol in HDL [Mass/Vol] 50.0 mg/dL Normal [facility] Comment on above: Result Comment: . AGE VERY LOW LOW NORMAL HIGH 0-19 Y < 35 < 40 40-45 ---- 20-24 Y ---- < 40 >45 ---- >24 Y ---- < 40 40-60 >60 . Performed By: #### L IPID #### [address] [id number] Cholesterol in LDL [Mass/Vol] 147 mg/dL High 0 - 119 [facility] Comment on above: Result Comment: . NEAR BORD AGE DESIRABLE OPTIMAL HIGH HIGH VERY HIGH 0-19 Y 0 - 109 --- 110-129 >/= 130 ---- 20-24 Y 0 - 119 --- 120-159 >/= 160 ---- >24 Y 0 - 99 100-129 130-159 160-189 >/=190 . Performed By: #### L IPID #### [address] [id number] Cholesterol in VLDL [Mass/Vol] 22 mg/dL Normal 0 - 40 [facility] Comment on above: Performed By: #### L IPID #### [address] [id number] Cholesterol.total/Wanda sterol in HDL [Mass ratio] 4.4 {ratio} Normal [facility] Comment on above: Result Comment: REF VALUES DESIRABLE < 3.4 HIGH RISK > 5.0 Performed By: #### L IPID #### [address] [id number] Triglyceride [Mass/Vol] 109 mg/dL Normal 0 - 149 [facility] Comment on above: Result Comment: . AGE [...] dosing. Performed By: #### L IPID #### [address] [id number] Laboratory - Chemistry and C hemistry - challengeon 01-16-2022 Albumin BCP dye [Mass/Vol] 4.2 g/dL 3.4 - 5.0 [facility] Work Phone: ALP [Catalytic activity/Vol] 64 U/L 33 - 110 [facility] Work Phone: ALT With P-5'-P [Catalytic activity/Vol] 12 U/L 7 - 45 [facility] Work [facility]: Comment on above: Patients treated wit h Sulfasalazine may generate falsely decreased results for ALT. Anion gap [Moles/Vol] 12 mmol/L 10 - 20 [facility] Work [facility]: AST With P-5'-P [Catalytic activity/Vol] 18 U/L 9 - 39 [facility] Work Phone: Bilirubin [Mass/Vol] 0.5 mg/dL 0.0 - 1.2 [facility] erst Work Phone: Calcium [Mass/Vol] 9.6 mg/dL 8.6 - 10.3 [facility] Work Phone: Chloride [Moles/Vol] 102 mmol/L 98 - 107 [facility] erst Work Phone: CO2 [Moles/Vol] 27 mmol/L 21 - 32 [facility] erst Work Phone: Creatinine [Mass/Vol] 0.66 mg/dL See Below [facility] erst Work Phone: Comment on above: Reference Range: 0.5 0 - 1.05 Glucose [Mass/Vol] 71 mg/dL below low threshold 74 - 99 [facility] Work Phone: Potassium [Moles/Vol] 4.1 mmol/L 3.5 - 5.3 [facility] er[facility] Work Phone: Protein [Mass/Vol] 7.9 g/dL 6.4 - 8.2 [facility] Work Phone: Sodium [Moles/Vol] 137 mmol/L 136 - 145 [facility] Work Phone: Urea nitrogen [Mass/Vol] 13 mg/dL 6 - 23 [facility] Work Phone: Laboratory - Hematology and Cell countson 01-16-2022 RBC (Bld) [#/Vol] 5.26 {x10E12/L} above high threshold See Below [facility] Work Phone: Comment on above: Reference Range: 4.0 0 - 5.20 Lipid Panelon 01-16-2022 Cholesterol [Mass/Vol] 219 mg/dL above hig h threshold 0 - 199 [facility] [employer] Work Phone: Comment on above: . AGE [...] guidelines reference: NCEP ATPIII Guidelines, BRANDYN 2001, 258:1426-97. Venipuncture immediately after or during the administration of Metamizole may lead to falsely low results. Testing should be performed immediately prior to Metamizole dosing. Cholesterol in HDL [Mass/Vol] 50.0 mg/dL [facility] [employer] Work Phone: Comment on above: . AGE VERY LOW LOW N ORMAL HIGH 0-19 Y < 35 < 40 40-45 ---- 20-24 Y ---- < 40 >45 ---- >24 Y ---- < 40 40-60 >60. Cholesterol in LDL [Mass/Vol] 147 mg/dL above high threshold 0 - 119 [facility] [employer] Work Phone: Comment on above: . NEAR BORD AGE VALENCIA RABLE OPTIMAL HIGH HIGH VERY HIGH 0-19 Y 0 - 109 --- 110-129 >/= 130 ---- 20-24 Y 0 - 119 --- 120-159 >/= 160 ---- >24 Y 0 - 99 100-129 130-159 160-189 >/=190. Cholesterol.total/Wanda sterol in HDL [Mass ratio] 4.4 {ratio} [facility] Work Phone: Comment on above: REF VALUESDESIRABLE < 3.4HIGH RISK > 5.0 Triglyceride [Mass/Vol] 109 mg/dL 0 - 149 [facility] Work Phone: Comment on above: [...] Lipid Panel 22 mg/dL 0 - 40 [facility] Work Phone: No Panel Informationon 01-16 >90 >90 [facility] Work Phone: Comment on above: CALCULATIONS OF STEPHANIE MATED GFR ARE PERFORMED USING THE 2020 CKD-EPI STUDY REFIT EQUATION WITHOUT THE RACE VARIABLE FOR THE IDMS-TRACEABLE CREATININE METHODS.https://jasn.asnjournals.org/content/// ASN.7594142185 Office Visiton 01-16-2022 Follow-up visit Diagnoses/Problems Encounter [...] Vitamin D 25-Hydroxy; Status:Active; Requested for:16Jan2022; Schizophrenia [facility] Referral Evaluation [...] No history of seizures, No history of OR / CAD, No history of CVA, + [...] part of routine gynecological examination (V76.2) (Z01.419) 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 Surgical History No history of surgery Social History Never a smoker No alcohol use 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) Allergies No Known Drug Allergies Recorded By: Marie Jones; 01/16/2022 1:27:57 PM Vitals Vital Signs Recorded: 16Jan2022 01:23PM Lurildgcqtv50.4 F Heart Yqdm323 Lvrufohfvfz35 Lfxwlkht021 Fhvxajznm86 Height5 ft 4.5 in Csqsyj941 lb BMI Ihryfavbpm06.97 kg/m2 BSA Calculated2.24 Tobacco Useb) No Falls Screening (Age 18+)c) Not medically indicated O2 Cchsnglmvw63 [id number] Gravida3 Para3 Physical Exam GENERAL: The patient [...] Free T4 [Mass/Vol] 0.88 ng/dL See Below [facility] er[facility] Work Phone: Comment on above: Reference Range: 0.6 1 - 1.12 Thyroxine Free testing is performed using different testing methodology at [facility] than at other [facility]. Direct result comparisons should only [...] THYROXINE,FREE 0.88 ng/dL Normal 0.61 - 1.12 [facility] Comment on above: Result Comment: Thyr oxine Free testing is performed using different testing methodology at [facility] than at other [facility]. Direct result comparisons should only [...] draw. Performed By: #### T 4FRE #### [address] [id number] TSHon 01-16-2022 TSH Qn 0.97 m[IU]/L Normal 0.44 - 3.98 [facility] Comment on above: Result Comment: TSH testing is performed using different testing methodology at [facility] than at other [facility]. Direct result comparisons should only be made within the same method. Performed By: #### T SH2 #### [address] [id number] TSH - Thyroid Stimulating Ho rmone, Serumon 01-16-2022 TSH Qn 0.97 m[IU]/L See Below [facility] Work Phone: Comment on above: Reference Range: 0.4 4 - 3.98 TSH testing is performed using different testing methodology at [facility] than at other [facility]. Direct result comparisons should only be made within the same method. Tobacco Screening.on 022 Fall risk assessment c) Not medically indicated [facility] Work Phone: Last menstrual period start date 08Jan2022 [facility] Work Phone: Tobacco use status [facility] b) No M [facility] erst Work Phone: URINALYSISon 01-16-2022 Appearance (U) Canceled Normal [facility] Comment on above: Order Comment: TEST URINALYSIS WAS CANCELLED, 01/16/2022 16:12 error/cf. Performed By: #### U A #### [address] [id number] ASCORBIC ACID Canceled Normal [facility] Comment on above: Order Comment: TEST URINALYSIS WAS CANCELLED, 01/16/2022 16:12 error/cf. Result Comment: Conc entrations > = 20 mg/dL of ascorbic acid can be expected to cause strong interference in the reactions testing for glucose, nitrite and blood. It is recommended to discontinue Vitamin C administration and retest in 10 hours. Performed By: #### U A #### [address] [id number] Bilirubin Ql (U) Canceled Normal [facility] Comment on above: Order Comment: TEST URINALYSIS WAS CANCELLED, 01/16/2022 16:12 error/cf. Performed By: #### U A #### [address] [id number] Color (U) Canceled Normal [facility] Comment on above: Order Comment: TEST URINALYSIS WAS CANCELLED, 01/16/2022 16:12 error/cf. Performed By: #### U A #### [address] [id number] Glucose Ql (U) Canceled Normal [facility] Comment on above: Order Comment: TEST URINALYSIS WAS CANCELLED, 01/16/2022 16:12 error/cf. Performed By: #### U A #### [address] [id number] Hemoglobin Ql (U) Canceled Normal [facility] Comment on above: Order Comment: TEST URINALYSIS WAS CANCELLED, 01/16/2022 16:12 error/cf. Performed By: #### U A #### [address] [id number] Ketones Ql (U) Canceled Normal [facility] Comment on above: Order Comment: TEST URINALYSIS WAS CANCELLED, 01/16/2022 16:12 error/cf. Performed By: #### U A #### [address] [id number] Leukocyte esterase Test strip Ql (U) Canceled Normal [facility] Comment on above: Order Comment: TEST URINALYSIS WAS CANCELLED, 01/16/2022 16:12 error/cf. Performed By: #### U A #### [address] [id number] Nitrite Ql (U) Canceled Normal [facility] Comment on above: Order Comment: TEST URINALYSIS WAS CANCELLED, 01/16/2022 16:12 error/cf. Performed By: #### U A #### [address] [id number] pH Canceled Normal [facility] Comment on above: Order Comment: TEST URINALYSIS WAS CANCELLED, 01/16/2022 16:12 error/cf. Performed By: #### U A #### [address] [id number] Protein Ql (U) Canceled Normal [facility] Comment on above: Order Comment: TEST URINALYSIS WAS CANCELLED, 01/16/2022 16:12 error/cf. Performed By: #### U A #### [address] [id number] Specific gravity (U) [Rel density] Canceled Normal [facility] Comment on above: Order Comment: TEST URINALYSIS WAS CANCELLED, 01/16/2022 16:12 error/cf. Performed By: #### U A #### [facility] [address] [facility], [place] [id number] UROBILINOGEN Canceled Normal [facility] Comment on above: Order Comment: TEST URINALYSIS WAS CANCELLED, 01/16/2022 16:12 error/cf. Performed By: #### U A #### [address], [place] [id number] URINE CULTURE,BACTERIALon URINE CULTURE,BACTERIAL PATIENT: SCARLET DURAND LOCATION: [address]#: [id number] : 89 AGE: SEX: F ORDERED BY: [...] DOSE DEPENDENT NS=NONSUSCEPTIBLE X=REPORTED IN ERROR Normal [facility] Comment on above: Performed By: #### U [facility] #### [facility] [address] [address] Urinalysison 01-16-2022 Appearance (U) Canceled -[facility] erst Work Phone: Color (U) Canceled [facility] Work Phone: Glucose Ql (U) Canceled -[facility] er[facility] Work Phone: Ketones Ql (U) Canceled [facility] erst Work Phone: Leukocyte esterase Test strip Ql (U) Canceled [facility] Work Phone: Protein (U) [Mass/Vol] Canceled [facility] erst Work Phone: RBC (U) [#/Vol] Canceled [facility] erst Work Phone: Specific gravity (U) [Rel density] Canceled [facility] Work Phone: Urinalysis Canceled [facility] Work Phone: Comment on above: Concentrations > = 2 0 mg/dL of ascorbic acid can be expected to cause strong interference in the reactions testing for glucose, nitrite and blood. It is recommended to discontinue Vitamin C administration and retest in 10 hours. VITAMIN B12on 01-16-2022 Cobalamin (Vitamin B12) [Mass/Vol] 224 pg/mL Normal 211 - 911 [facility] Comment on above: Performed By: #### V TB12 #### [address] [id number] VITAMIN D, 25-HYDROXYon 12-27 VITAMIN D, 25-HYDROXY 19 ng/mL Abnormal [facility] Comment on above: Result Comment: . DEFICIENCY: < 20 NG/ML INSUFFICIENCY: 20-29 NG/ML SUFFICIENCY: 30-100 NG/ML THIS ASSAY ACCURATELY QUANTIFIES THE SUM OF VITAMIN D3, 25-HYDROXY AND VIT D2,25-HYDROXY. Performed By: #### V TDOH #### [facility] [address] [place], [place] [id number] Vitamin B12, Serumon 022 Cobalamin (Vitamin B12) [Mass/Vol] 224 pg/mL 211 - 911 [facility] [employer] Work Phone: Vitamin D 25-Hydroxyon 01-16 25-hydroxyvitamin D3 [Mass/Vol] 19 ng/mL Abnormal [facility] ers Work Phone: Comment on above: .DEFICIENCY: < 20 NG /MLINSUFFICIENCY: 20-29 NG/MLSUFFICIENCY: 30-100 NG/MLTHIS ASSAY ACCURATELY QUANTIFIES THE SUM OFVITAMIN D3, 25-HYDROXY AND VIT D2,25-HYDROXY. HPV DNA Typingon 01-04-2022 HPV Type 16 Not detected Normal Not Detect [facility] HPV Type 18 Not detected Normal Not Detect [facility] HPVOH (Other types) Detected Abnormal Not Detect [facility] Comment on above: Result Comment: *Inc ludes 31,33,35,39,45,51,52,56,58,59,66,68 genotypes HPV DNA Typingon 12-30-2021 HPV Comment See below Normal [facility] Comment on above: Result Comment: Th is [...] 12-30-2021 Trichomonas Vaginalis Screen (EIA) Negative Normal [facility] Comment on above: Performed By: #### E TRIC #### [facility] [address] [place] [address] Wet Prep-Medical Purposes On martinez 12-30-2021 Wet Prep Clue Cellls None Seen Normal [facility] Comment on above: Performed By: #### W ETPR #### [facility] [address] [place] [address] Wet Prep Trichomonas See EIA Normal [facility] Comment on above: Performed By: #### W ETPR #### [facility] [address] [place] [address] Wet Prep Yeast None Seen [facility] Comment on above: Performed By: #### W ETPR #### [facility] [address] [place] [address] Gynecological Specimen (Cyto logy)on 12-29-2021 Gynecological Specimen (Cytology) [facility] [address] [place] [address] FINAL CYTOLOGY PAP REPORT Patient Name: SCARLET DURAND Accession No: [id number] Age Sex: 2000 22 Y / F Location: [facility] Account No: [id number] Collected: 12/29/2021 Med Rec No: [id number] Received: 01/01/2022 Attend Phys: EDUARD NGUYEN Completed: 01/09/2022 Perform Phys: EDUARD NGUYEN INTERPRETATION/RESULTS: Atypical squamous cells of undetermined significance. GENERAL CATEGORIZATION: Epithelial Cell Abnormality SPECIMEN ADEQUACY: Satisfactory for Evaluation. Endocervical cells/transformation zone component present. Specimen: THINPREP LIQUID BASE IMAGED DIAGNOSTIC History: Source: Thin Prep Site: Cervical History: Previous abnormal smear? No History of CA? No Lab Order#: [id number] Test Name Collected D AND T Result [...] (PCR) and nucleic acid hybridization. CPT: Technical: 54443 X1 Professional: 37286 X1 Screened by: VELIA HERNANDEZ(ASCP) ROLY ROBB [...] processed and screened using a Thin Prep Flexographic Press Helper at [facility] [address] [place] [address] All abnormal gynecologic interpretation is performed at [facility], unless otherwise noted in the report. 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 YELLOW Normal YELLOW [facility] Comment on above: Performed By: #### U ACSANGELA ICRO #### [facility] [address] [place] [address] Kumar Mago Glucose Ql (U) Negative Normal NEGATIVE [facility] Comment on above: Performed By: #### U ACSANGELA UMICRO #### [facility] [address] [place] [address] Kumar Mago Hemoglobin Ql (U) Negative Normal NEGATIVE [facility] Comment on above: Performed By: #### U ACSANGELA UMICRO #### [facility] [address] [place] [address] Kumar Mago Ketones Ql (U) 15 mg/dl Abnormal NEGATIVE [facility] Comment on above: Performed By: #### U ACSANGELA UMICRO #### [facility] [address] [place] [address] Kumar Mago LEUKOCYTES SMALL Abnormal NEGATIVE [facility] Comment on above: Performed By: #### U ACSERYN MILLER #### [facility] [address] [address] Kumar Mago Nitrite Ql (U) Negative Normal NEGATIVE [facility] Comment on above: Performed By: #### U ERYN BARRY #### [facility] [address] [id number] Kumar Mago pH (U) 7.0 [pH] Normal 5-9 [facility] Comment on above: Performed By: #### U ERYN BARRY #### [facility] [address] [place] [address] Kumar Mago SPEC GRAVITY 1.020 Normal 1.005-<=1.0 25 [facility] Comment on above: Performed By: #### ERYN HOLM #### [facility] [address] [place] [address] Kumar Mago UA PROTEIN Negative Normal NEGATIVE/ TRACE [facility] Comment on above: Performed By: #### ERYN HOLM #### [facility] [address] [place] [address] Kumar Mago UR MICRO IND INDICATED Normal [facility] Comment on above: Performed By: #### ERYN HOLM #### [facility] [address] [place] [address] Kumar Mago Urobilinogen Qn (U) 0.2 {Lei'U}/dL Normal 0.2 - 1. 0 [facility] Comment on above: Performed By: #### ERYN HOLM #### [facility] [address] [place] [address] Kumar Mago URINE MICROSCOPIC ONLYon BACTERIA LARGE Abnormal NONE SEEN [facility] Comment on above: Performed By: #### U ERYN BARRY #### [facility] [address] [place] [address] Kumar Mago Bacteria identified Cx Nom (U) INDICATED Normal [facility] Comment on above: Performed By: #### U ERYN BARRY #### [facility] [address] [place], [place] [id number] Kumar Mago CAST NONE SEEN Normal NONE SEEN [facility] Comment on above: Performed By: #### U ACSIND, UMICRO #### [facility] [address] [address] Kumar Amgo Crystals LM Nom (Urine sed) NONE SEEN Normal NONE SEEN [facility] Comment on above: Performed By: #### U ACSIND, UMICRO #### [facility] [address] [address] Kumar Mago Epithelial cells LM Ql (Urine sed) MANY Abnormal NONE SEEN /RARE [facility] Comment on above: Performed By: #### U ACSIND, UMICRO #### [facility] [address] [place] [address] Kumar Mago MUCOUS NONE SEEN Normal NONE SEEN [facility] Comment on above: Performed By: #### U ACSIND, UMICRO #### [facility] [address] [place] [address] Kumar Mago RBC 2-5 Abnormal 0-2 [facility] Comment on above: Performed By: #### U ACSIND, UMICRO #### [facility] [address] [place] [address] Kumar Mago WBC 20-50 Abnormal NONE SEEN [facility] Comment on above: Performed By: #### U ACSIND, UMICRO #### [facility] [address] [place] [address] Kumar Mago Progress Noteon 08-08-2020 [employer] Authentication Interface Message Text Maternal Medicine Consult [...] Vag-Spont GAUDENCIO Past Medical History: Diagnosis Date #[id number] Anxiety Bipolar depression Bipolar disorder Nervous breakdown [...] No Muscular Dystrophy No Cystic Fibrosis No Lakeland's Chorea No Intellectual Disability/Autism Yes Daughter with [...] which was can try to schedule in [place] for them. She has had no mental [...] was spent counseling and coordinating care. Normal [facility] Microscopic Urinalysison Bacteria, UA FEW Abnormal Negative /HPF [place] Epithelial Cells, UA 20-50 [place] RBC (U) [#/Vol] 5-10 Abnormal [place] WBC, UA >100 [place] Otheron 01-04-2020 Interpretation and review of laboratory results Abnormal [place] Urine Reflex to Cultureon Bilirubin Urine Negative Negative [place] Blood, Urine LARGE Abnormal Negative [place] Clarity, UA CLOUDY Abnormal Clear [place] Color, UA Yellow Straw/Yello w [place] Glucose, Ur Negative Negative mg/dL [place] Ketones Ql (U) Negative Negative mg/dL [place] Leukocyte esterase Test strip Ql (U) SMALL Abnormal Negative [place] Nitrite, Urine Negative Negative [place] pH, UA 5.0 [place] Protein (U) [Mass/Vol] TRACE Abnormal Negat ben mg/dL [place] Specific [place], UA 1.031 [place] Urine Reflex to Culture Yes M [place] Urobilinogen, Urine 0.2 <2.0 E.U./dL [place] Wet Prep, Genitalon 01-04-20 20 Clue Cells, Wet Prep None Seen [place] Interpretation and review of laboratory results Abnormal [place] Trichomonas Prep 4+ Abnormal [place] Yeast, Wet Prep None [place] Microscopic Urinalysison Bacteria, UA FEW Abnormal Negative /HPF [place] Epithelial Cells, UA 20-50 [place] Hyaline Casts, UA 5-10 [place] RBC (U) [#/Vol] 5-10 Abnormal [place] Trichomonas, UA Present Abnormal None Seen /HPF [place] WBC, UA >100 High [place] Otheron 12-30-2019 Interpretation and review of laboratory results Abnormal [place] POC Urine Qualon 0 12-30-2019 Beta HCG ( test) Ql (U) [id number] [place] Beta HCG ( test) Ql (U) Negative Negative [place] Negative QC Pass/Fail Pass [place] Positive QC Pass/Fail Pass [place] Urine Reflex to Cultureon Bilirubin Urine Negative Negative [place] Blood, Urine MODERATE Abnormal Negative [place] Clarity, UA TURBID Abnormal Clear [place] Color, UA Yellow Straw/Yello w [place] Glucose, Ur Negative Negative mg/dL [place] Ketones Ql (U) Negative Negative mg/dL [place] Leukocyte esterase Test strip Ql (U) LARGE Abnormal Negative [place] Nitrite, Urine Negative Negative [place] pH, UA 6.5 [place] Protein (U) [Mass/Vol] TRACE Abnormal Negat ben mg/dL [place] Specific [place]ron, UA 1.022 [place] Urine Reflex to Culture Yes [place] Urobilinogen, Urine 1.0 <2.0 E.U./dL [place] Microscopic Urinalysison Bacteria, UA Few /HPF [place] Epi Cells 10-20 /HPF [place] Interpretation and review of laboratory results Abnormal [place] RBC (U) [#/Vol] 3-5 Abnormal [place] WBC, UA 0-2 [place] Urine Drug Screen, Comprehen siveon 03-09-2019 Amphetamine Screen, Urine Negative Negative <500 ng/mL [place] Comment on above: Effective: 02/09/18 Methodology and/or Reference Range-Cutoff has changed. Barbiturate Screen, Ur Negative Negat ben <200 ng/mL [place] Comment on above: Effective: 02/09/18 Methodology and/or Reference Range-Cutoff has changed. Benzodiazepine Screen, Urine Negative Negative <150 ng/mL [place] Comment on above: Effective: 02/09/18 Methodology and/or Reference Range-Cutoff has changed. Cannabinoid Scrn, Ur Negative Negativ e <50 ng/mL [place] Cocaine Metabolite Screen, Urine Negative Negative <150 ng/mL [place] Comment on above: Effective: 02/09/18 Methodology and/or Reference Range-Cutoff has changed. Drug Screen Comment: see below [place] Comment on above: This method is a scr eening test to detect only these drug classes as part of a medical workup. Confirmatory testing by another method should be ordered if clinically indicated. Opiate Scrn, Ur Negative Negative <100 ng/mL [place] Comment on above: Effective: 02/09/18 Methodology and/or Reference Range-Cutoff has changed. PCP Screen, Urine Negative Negative <25 ng/mL [place] Tricyclic Negative Negative <300 ng/mL [place] Comment on above: Effective: 02/09/18 Methodology and/or Reference Range-Cutoff has changed. CBC Auto Differentialon 02-25 Anisocytosis Ql (Bld) 1+ Amin[place] Bands Relative 15 % High 5 - 11 % [place] Basophils (Bld) [#/Vol] 0.1 10*3/uL 0 - 0.2 K/uL [place] Comment on above: Corrected result; pr eviously reported as 0.0 on 03/08/2019 at 23:01 by JOSE ALEJANDRO Basophils/100 WBC (Bld) 1.0 % [place] Comment on above: Corrected result; pr eviously reported as 0.3 on 03/08/2019 at 23:01 by JOSE ALEJANDRO Eosinophils (Bld) [#/Vol] 0.3 10*3/uL 0 - 0.7 K/uL [place] Comment on above: Corrected result; pr eviously reported as 0.1 on 03/08/2019 at 23:01 by JOSE ALEJANDRO Eosinophils/100 WBC (Bld) 3 % [place] Comment on above: Corrected result; pr eviously reported as 1.3 on 03/08/2019 at 23:01 by JOSE ALEJANDRO Erythrocyte distribution width (RBC) [Ratio] 16.6 % High 11.5 - 14.5 % [place] Hematocrit (Bld) [Volume fraction] 35.6 % Low 37 - 47 % [place] Hemoglobin (Bld) [Mass/Vol] 11.8 g/dL Low 12 - 16 g/dL [place] Interpretation and review of laboratory results Abnormal [place] Lymphocytes (Bld) [#/Vol] 2.9 10*3/uL 1 - 4.8 K/uL [place] Comment on above: Corrected result; pr eviously reported as 3.0 on 03/08/2019 at 23:01 by JOSE ALEJANDRO Lymphocytes/100 WBC (Bld) 26.0 % [place] Comment on above: Corrected result; pr eviously reported as 27.5 on 03/08/2019 at 23:01 by JOSE ALEJANDRO MCH (RBC) [Entitic mass] 24.5 pg Low 27 - 31.3 pg [place] MCHC (RBC) [Mass/Vol] 33.2 % 33 - 37 % [place] MCV (RBC) [Entitic vol] 73.8 fL Low 82 - 100 fL [place] Microcytes 1+ [place] Monocytes (Bld) [#/Vol] 0.6 10*3/uL 0.2 - 0.8 K/uL [place] Comment on above: Corrected result; pr eviously reported as 0.5 on 03/08/2019 at 23:01 by JOSE ALEJANDRO Monocytes/100 WBC (Bld) 4.8 % [place] Comment on above: Corrected result; pr eviously reported as 5.0 on 03/08/2019 at 23:01 by JOSE ALEJANDRO Neutrophils (Bld) [#/Vol] 7.3 10*3/uL High 1.4 - 6.5 K/uL [place] Comment on above: Corrected result; pr eviously reported as 7.2 on 03/08/2019 at 23:01 by JOSE ALEJANDRO Neutrophils/100 WBC (Bld) 51.0 % [place] Comment on above: Corrected result; pr eviously reported as 65.9 on 03/08/2019 at 23:01 by JOSE ALEJANDRO PLATELET SLIDE REVIEW Normal [place] Platelets (Bld) [#/Vol] 368 10*3/uL 130 - 400 K/uL [place] Poikilocytes 1+ [place] RBC (Bld) [#/Vol] 4.83 10*6/uL [place] WBC (Bld) [#/Vol] 11.0 10*3/uL High 4.8 - 10.8 K/uL [place] Comprehensive Metabolic Pane evan 03-08-2019 Albumin [Mass/Vol] 3.8 g/dL 3.5 - 4.6 g/dL [place] ALP [Catalytic activity/Vol] 65 U/L 40 - 130 U/L [place] ALT [Catalytic activity/Vol] 9 U/L 0 - 33 U/L [place] Anion gap [Moles/Vol] 13 mmol/L [place] AST [Catalytic activity/Vol] 10 U/L 0 - 35 U/L [place] Bilirubin Ql (U) <0.2 0.2 - 0.7 mg/dL [place] Calcium [Mass/Vol] 8.8 mg/dL 8.5 - 9.9 mg/dL [place] Chloride [Moles/Vol] 104 mmol/L [place] CO2 [Moles/Vol] 26 mmol/L [place] Creatinine [Mass/Vol] 0.64 mg/dL 0.5 - 0.9 mg/dL [place] GFR >60.0 >60 [place] Comment on above: >60 mL/min/1.73m2 EG FR, calc. for ages 18 and older using the MDRD formula (not corrected for weight), is valid for stable renal function. GFR Non- >60.0 >60 [place] Comment on above: >60 mL/min/1.73m2 EG FR, calc. for ages 18 and older using the MDRD formula (not corrected for weight), is valid for stable renal function. Globulin (S) [Mass/Vol] 3.8 g/dL High 2.3 - 3.5 g/dL [place] Glucose [Mass/Vol] 87 mg/dL 70 - 99 mg/dL [place] Interpretation and review of laboratory results Abnormal [place] Potassium [Moles/Vol] 3.5 mmol/L [place] Protein [Mass/Vol] 7.6 g/dL 6.3 - 8 g/dL [place] Sodium [Moles/Vol] 143 mmol/L [place] Urea nitrogen [Mass/Vol] 8 mg/dL 6 - 20 mg/dL [place] Lactic Acid, Plasmaon 2018 Lactate [Moles/Vol] 0.7 mmol/L 0.5 - 2. 2 mmol/L [place] POCT Blood Stool Occulton Hemoglobin.gastrointest inal Ql (Stl) Negative [place] Interpretation and review of laboratory results Normal [place] QC OK? pass [place] POCT Creatinineon 03-08-2019 Creatinine [Mass/Vol] 0.6 mg/dL [place] Interpretation and review of laboratory results Normal [place] Urinalysis Reflex to Culture on 03-08-2019 Bilirubin Urine Negative Negative [place] Blood, Urine LARGE Abnormal Negative [place] Clarity, UA CLOUDY Abnormal Clear [place] Color, UA Yellow Straw/Yello w [place] Glucose, Ur Negative Negative mg/dL [place] Interpretation and review of laboratory results Abnormal [place] Ketones Ql (U) Negative Negative mg/dL [place] Leukocyte esterase Test strip Ql (U) Negative Negative [place] Nitrite, Urine Negative Negative [place] pH, UA 5.5 [place] Protein (U) [Mass/Vol] TRACE Abnormal Negat ben mg/dL [place] Specific [place], UA 1.023 [place] Urine Reflex to Culture YES [place] Urobilinogen, Urine 1.0 <2.0 E.U./dL [place] Basic Metabolic Panelon 10-0 Anion gap 3 molar conc 16 mmol/L Critically high 7-13 [facility] Calcium mass conc 9.1 mg/dL Normal 8.6-10.[address] [facility] Chloride molar conc 105 mmol/L Normal 98-107 [facility] CO2 molar conc 24 mmol/L Normal 22-29 [facility] Creatinine mass conc 0.65 mg/dL Normal 0.50-0.90 [facility] GFR/1.73 sq M predicted among blacks MDRD vol rate/area (S/P/Bld) mL/min/{1.73_m2} Normal >60 [facility] Comment on above: Result Comment: >60 mL/min/1.73m2 EGFR, calc. for ages 18 and older using theMDRD formula (not corrected for weight), is valid for stablerenal function. GFR/1.73 sq M.predicted MDRD vol rate/area mL/min/{1.73_m2} Normal >60 [facility] Comment on above: Result Comment: >60 mL/min/1.73m2 EGFR, calc. for ages 18 and older using theMDRD formula (not corrected for weight), is valid for stablerenal function. Glucose mass conc 99 mg/dL Normal 74-[address] [facility] Potassium molar conc 4.1 mmol/L Normal 3.5-5.1 [facility] Sodium molar conc 145 mmol/L Critically high 132-144 [facility] Urea nitrogen mass conc 11 mg/dL Normal 6-20 [facility] CBC With Platelet and Differ entialon 05-05-2018 Basophils Auto #/vol (Bld) 0.0 10*3/uL Normal 0.0-0.2 [facility] Basophils/100 WBC Auto (Bld) 0.5 % Normal [facility] Eosinophils Auto #/vol (Bld) 0.1 10*3/uL Normal 0.0-0.7 [facility] Eosinophils/100 WBC Auto (Bld) 0.9 % Normal [facility] Erythrocyte distribution width Auto Ratio (RBC) 15.2 % Critically high 11.5-14.5 [facility] Hematocrit Auto Volume Fraction (Bld) 37.0 % Normal 37.0-47.0 [facility] Hemoglobin mass conc (Bld) 12.4 g/dL Normal 12.0-16.0 [facility] Hypochromia PRESENT Normal [facility] Lymphocytes Auto #/vol (Bld) 2.9 10*3/uL Normal 1.0-4.8 [facility] Lymphocytes/100 WBC Auto (Bld) 33.4 % Normal [facility] MCH Auto Entitic mass (RBC) 25.9 pg Low 27.0-31.3 [facility] MCHC Auto mass conc (RBC) 33.5 % Normal 33.0-37.0 [facility] MCV Auto Entitic volume (RBC) 77.4 fL Low 82.0-100.0 [facility] Monocytes Auto #/vol (Bld) 0.6 10*3/uL Normal 0.2-0.8 [facility] Monocytes/100 WBC Auto (Bld) 6.6 % Normal [facility] Neutrophils Auto #/vol (Bld) 5.0 10*3/uL Normal 1.4-6.5 [facility] Neutrophils/100 WBC Auto (Bld) 58.6 % Normal [facility] Platelets Auto #/vol (Bld) 326 10*3/uL Normal 130-400 [facility] RBC Auto #/vol (Bld) 4.78 10*6/uL Normal 4.20-5.40 [facility] WBC Auto #/vol (Bld) 8.6 10*3/uL Normal 4.5-11.0 [facility] CT LUMBAR SPINE WO CONTRASTo n 05-05-2018 [...] Lemon, DOSigned by:Lesia Lemon, DO05/05/18Final result Normal [facility] Sedimentation Rateon 018 Sedimentation Rate 22 mm Critically high 0-20 [facility] UR HCG Qualitativeon 018 HCG.beta subunit ( test) Ql (U) Negative Normal Detects HC [facility] ED Provider Noteon 8 HIM IP Note OR Mantel Craftsman Normal [facility] Cult,Urineon 04-30-2017 Cult,Urine Specimen Description .URINE, MIDSTREAM Performed at [facility] [address] [place] [address] ([phone] Special Requests NOT REPORTEDCulture NO SIGNIFICANT GROWTH Performed at [facility] [address] [place] [address] Report Status FINAL 04/30/2017 [facility] Comment on above: Performed By: #### U RC ####[id number] [place] [address] [facility] [place] [address] ED Provider Noteon 10-03-201 7 HIM IP Note OR Mantel Craftsman Normal [facility] HCG, ,Urineon 04-29 HCG.beta subunit ( test) Ql (U) Negative Normal NEG [facility] Comment on above: Result Comment: Perf ormed at [facility] [address] [facility] [place] [address] Performed By: #### U HCG, UA, UMICAO ####[address] [id number] [facility] [place] [address] Urinalysis, Routineon 2016 Acetaminophen mass conc Negative Normal NEG [facility] Comment on above: Performed By: #### U HCG, UA, UMICAO ####[address] [place] [address] Bilirubin (direct) Negative Normal NEG [facility] Comment on above: Performed By: #### U HCG, UA, UMICAO ####[place] [address] Comment Normal [facility] Comment on above: Result Comment: Perf ormed at [facility] [address] [place] [address] Performed By: #### U HCG, UA, UMICAO ####[address] [place] [address] Hemoglobin mass conc (Bld) TRACE Abnormal NEG [facility] Comment on above: Performed By: #### U HCG, UA, UMICAO ####[address] [place] [address] Nitrite,Ur Negative Normal NEG [facility] Comment on above: Performed By: #### U HCG, UA, UMICAO ####[id number] [facility] [place] [address] Turbidity HAZY Abnormal CLEAR [facility] Comment on above: Performed By: #### U HCG, UA, UMICAO ####[facility] [place] [address] Urine, color YELLOW Normal YEL [facility] Comment on above: Performed By: #### U HCG, UA, UMICAO ####[facility] [place] [address] Urine, glucose presence Negative Normal NEG [facility] Comment on above: Performed By: #### U HCG, UA, UMICAO ####[facility] [place] [address] Urine, leukocyte esterase presence 2+ Abnormal NEG [facility] Comment on above: Performed By: #### U HCG, UA, UMICAO ####[address] [id number] [place] [address] Urine, pH 5.0 [pH] Normal 5.0-8.0 [facility] Comment on above: Performed By: #### U HCG, UA, UMICAO ####[id number] [place] [address] Urine, protein presence Negative Normal NEG [facility] Comment on above: Performed By: #### U HCG, UA, UMICAO ####[address] [place] [address] Urine, specific gravity 1.015 Normal 1.005-1.030 [facility] Comment on above: Performed By: #### U HCG, UA, UMICAO ####[facility] [place] [address] Urobilinogen,Ur Normal Normal NORM [facility] Comment on above: Performed By: #### U HCG, UA, UMICAO ####[id number] [place] [address] Urinalysis,Microon 7 ----- Normal [facility] Comment on above: Performed By: #### U HCG, UA, UMICAO ####[facility] [place] [address] Urine WBC's 2 TO 5 Normal 0 [facility] Comment on above: Performed By: #### U HCG, UA, UMICAO ####[facility] [place] [address] Urine, bacteria in sediment 2+ Abnormal NONE [facility] Comment on above: Result Comment: Perf ormed at [facility] [address] [place] [address] Performed By: #### U HCG, UA, UMICAO ####[facility] [place] [address] Urine, epithelial cells in sediment 5 TO 10 Normal [facility] Comment on above: Performed By: #### U HCG, UA, UMICAO ####[facility] [place] [address] Urine, erythrocytes 0 TO 2 Normal 0-2 [facility] Comment on above: Performed By: #### U HCG, UA, UMICAO ####[facility] [place] [address] Epithelial, Renal NOT REPORTED Normal 0 [facility] Comment on above: Performed By: #### U HCG, UA, UMICAO ####[facility] [place] [address] Mucus Strands NOT REPORTED Normal NONE [facility] Comment on above: Performed By: #### U HCG, UA, UMICAO ####[facility] [place] [address] Other Observations NOT REPORTED Normal NREQ [facility] Comment on above: Performed By: #### U HCG, UA, UMICAO ####[id number] [facility] [address] Trichomonas NOT REPORTED Normal NONE [facility] Comment on above: Performed By: #### U HCG, UA, UMICAO ####[facility] [place] [address] Urine, amorphous sediment presence in sediment NOT REPORTED Normal NONE [facility] Comment on above: Performed By: #### U HCG, UA, UMICAO ####[facility] [place] [address] Urine, casts in sediment NOT REPORTED Normal [facility] Comment on above: Performed By: #### U HCG, UA, UMICAO ####[address] [place] [address] Urine, crystals in sediment NOT REPORTED Normal NONE [facility] Comment on above: Performed By: #### U HCG, UA, UMICAO ####[address] [facility] [address] Urine, yeast presence in sediment NOT REPORTED Normal NONE [facility] Comment on above: Performed By: #### U HCG, UA, UMICAO ####[id number] [place] [address] Group A Strep DNAon 04-03-20 17 Group A Strep DNA Specimen Description .THROAT SWAB Performed at [facility] [address] [facility] [place] [address] Special Requests NOT REPORTEDDirect Exam Negative: Specimen negative for Streptococcus pyogenes by DNA amplification. Performed at [facility] [address] [place] [address] Report Status FINAL 04/03/2017 Normal [facility] Comment on above: Performed By: #### G ASDNA ####[facility] [place] [address] [facility] [place] [address] ED Provider Noteon 7 HIM IP Note OR Mantel Craftsman [facility] Strep Gr A Direct Agon 04-01 Rapid strep test Specimen Description .THROATSpecial Requests NOT REPORTEDDirect Exam Rapid Strep A negative. A negative Rapid Group A Strep Screen result does not rule out the possibility of Group A Streptococci in the specimen. A Group A strep DNA test will be performed. Performed at [facility] [address] [place] [address] ([phone] Report Status FINAL 04/01/2017 [facility] Comment on above: Performed By: #### S GPA ####[facility] [place] [address] Vital Signs Date Time Vital Sign Value Performing Clinician Facility 12-28-2024 13:07-0400 Body height 165.1 cm Doreen Garrett NP Work Phone: [facility] 12-28-2024 13:07-0400 Body mass index (BMI) [Ratio] 44.6 kg/m2 Doreen Garrett NP Work Phone: [facility] 12-28-2024 13:07-0400 Body weight 121.56 kg Doreen Garrett [employer] Work Phone: [facility] 12-28-2024 13:07-0400 Diastolic blood pressure 74 mm[Hg] Doreen Garrett [employer] Work Phone: [facility] 12-28-2024 13:07-0400 Systolic blood pressure 124 mm[Hg] Doreen Garrett [employer] Work Phone: [facility] 10-30-2024 16:49-0400 Body temperature 98.42 [degF] Blake Rivera [facility] 10-30-2024 16:49-0400 Diastolic blood pressure 86 mm[Hg] Blake Rivera [facility] 10-30-2024 16:49-0400 Heart rate 86 /min Blake Rivera [facility] 10-30-2024 16:49-0400 Respiratory rate 20 /min Blake Rivera [facility] 10-30-2024 16:49-0400 SaO2% (BldA) [Mass fraction] 99 % Blake Rivera [facility] 10-30-2024 16:49-0400 Systolic blood pressure 128 mm[Hg] Blake Rivera [facility] 10-08-2024 21:17-0400 Body temperature 97.7 [degF] Eric Darrell [facility] 10-08-2024 21:17-0400 Diastolic blood pressure 78 mm[Hg] Eric Darrell [facility] 10-08-2024 21:17-0400 Heart rate 105 /min Eric Darrell [facility] 10-08-2024 21:17-0400 Respiratory rate 17 /min Eric Darrell [facility] 10-08-2024 21:17-0400 SaO2% (BldA) [Mass fraction] 100 % Eric Darrell [facility] 10-08-2024 21:17-0400 Systolic blood pressure 131 mm[Hg] Eric Darrell [facility] 07-30-2024 08:03-0500 Body height 165.1 cm Familia Knight DPM FACFAS Work Phone: [facility] 07-30-2024 08:03-0500 Body mass index (BMI) [Ratio] 46.59 kg/m2 Familia Knight DPM FACFAS Work Phone: [facility] 07-30-2024 08:03-0500 Body weight 127.01 kg Familia Knight DPM FACFAS Work Phone: [facility] 07-30-2024 08:03-0500 Diastolic blood pressure 77 mm[Hg] Familia Dolce DPM FACFAS Work Phone: [facility] 07-30-2024 08:03-0500 Heart rate 72 /min Familia Dolce DPM FACFAS Work Phone: [facility] 07-30-2024 08:03-0500 Systolic blood pressure 129 mm[Hg] Familia Dolce DPM FACFAS Work Phone: [facility] 07-02-2024 07:55-0500 Body height 165.1 cm Familia Dolce DPM FACFAS Work Phone: [facility] 07-02-2024 07:55-0500 Body mass index (BMI) [Ratio] 46.59 kg/m2 Familia Dolce DPM FACFAS Work Phone: [facility] 07-02-2024 07:55-0500 Body weight 127.01 kg Familia Dolce DPM FACFAS Work Phone: [facility] 07-02-2024 07:55-0500 Diastolic blood pressure 75 mm[Hg] Familia Dolce DPM FACFAS Work Phone: [facility] 07-02-2024 07:55-0500 Heart rate 74 /min Familia Dolce DPM FACFAS Work Phone: [facility] 07-02-2024 07:55-0500 Systolic blood pressure 128 mm[Hg] Familia Dolce DPM FACFAS Work Phone: [facility] 06-02-2024 12:57-0500 Body height 165.1 cm Familia Dolce DPM FACFAS Work Phone: [facility] 06-02-2024 12:57-0500 Body mass index (BMI) [Ratio] 46.59 kg/m2 Familia Dolce DPM FACFAS Work Phone: [facility] 06-02-2024 12:57-0500 Body weight 127.01 kg Familia Dolce DPM FACFAS Work Phone: [facility] 06-02-2024 12:57-0500 Diastolic blood pressure 77 mm[Hg] Familia Knight DPM FACFAS Work Phone: [facility] 06-02-2024 12:57-0500 Heart rate 75 /min Familia Knight DPM FACFAS Work Phone: [facility] 06-02-2024 12:57-0500 Systolic blood pressure 125 mm[Hg] Familia Knight DPM FACFAS Work Phone: [facility] 05-30-2024 14:22-0500 Body temperature 98.42 [degF] [facility] 05-30-2024 14:22-0500 Diastolic blood pressure 91 mm[Hg] [facility] 05-30-2024 14:22-0500 Heart rate 94 /min [facility] 05-30-2024 14:22-0500 Respiratory rate 16 /min [facility] 05-30-2024 14:22-0500 SaO2% (BldA) [Mass fraction] 98 % [facility] 05-30-2024 14:22-0500 Systolic blood pressure 126 mm[Hg] [facility] 05-19-2024 13:53-0400 Body height 165.1 cm Familia Knight DPM FACFAS Work Phone: [facility] 05-19-2024 13:53-0400 Body mass index (BMI) [Ratio] 46.59 kg/m2 Familia Knight DPM FACFAS Work Phone: [facility] 05-19-2024 13:53-0400 Body weight 127.01 kg Familia Knight DPM FACFAS Work Phone: [facility] 05-19-2024 13:53-0400 Diastolic blood pressure 72 mm[Hg] Familia Knight DPM FACFAS Work Phone: [facility] 05-19-2024 13:53-0400 Heart rate 73 /min Familia Knight DPM FACFAS Work Phone: [facility] 05-19-2024 13:53-0400 Systolic blood pressure 124 mm[Hg] Familia Knight DPM FACFAS Work Phone: [facility] 05-17-2024 08:40-0400 Body temperature 98.24 [degF] Bi Kervin [facility] 05-17-2024 08:40-0400 Diastolic blood pressure 95 mm[Hg] Bi Kervin [facility] 05-17-2024 08:40-0400 Heart rate 79 /min Bi Kervin [facility] 05-17-2024 08:40-0400 Respiratory rate 18 /min Bi Kervin [facility] 05-17-2024 08:40-0400 SaO2% (BldA) [Mass fraction] 95 % Bi Kervin [facility] 05-17-2024 08:40-0400 Systolic blood pressure 153 mm[Hg] Bi Kervin [facility] 05-09-2024 14:19-0400 Body temperature 98.78 [degF] Bi Kervin [facility] 05-09-2024 14:19-0400 Diastolic blood pressure 85 mm[Hg] Bi Kervin [facility] 05-09-2024 14:19-0400 Heart rate 94 /min Bi Kervin [facility] 05-09-2024 14:19-0400 Respiratory rate 16 /min Bi Kervin [facility] 05-09-2024 14:19-0400 SaO2% (BldA) [Mass fraction] 100 % Bi Kervin [facility] 05-09-2024 14:19-0400 Systolic blood pressure 131 mm[Hg] Bi Kervin [facility] 01-12-2024 23:57-0400 Body temperature 98.42 [degF] Nevaehylinn Dokken [facility] 01-12-2024 23:57-0400 Diastolic blood pressure 82 mm[Hg] Kaylinn Dokken [facility] 01-12-2024 23:57-0400 Heart rate 117 /min Nevaehylinn Dokken [facility] 01-12-2024 23:57-0400 Respiratory rate 16 /min Nevaehylinn Dokken [facility] 01-12-2024 23:57-0400 SaO2% (BldA) [Mass fraction] 98 % Dahianainn Dokken [facility] 01-12-2024 23:57-0400 Systolic blood pressure 122 mm[Hg] Dahianainn Dokken [facility] 2024 23:19-0400 Body temperature 98.06 [degF] Bi Galeana [facility] 2024 23:19-0400 Diastolic blood pressure 71 mm[Hg] Bi Kervin [facility] 2024 23:19-0400 Heart rate 114 /min Bi Kervin [facility] 2024 23:19-0400 Respiratory rate 20 /min Bi Kervin [facility] 2024 23:19-0400 SaO2% (BldA) [Mass fraction] 98 % Bi Kervin [facility] 2024 23:19-0400 Systolic blood pressure 116 mm[Hg] Bi Kervin [facility] 09-23-2023 10:21-0500 Diastolic blood pressure 75 mm[Hg] [facility] 09-23-2023 10:21-0500 Heart rate 116 /min [facility] 09-23-2023 10:21-0500 Mean blood pressure 89 mm[Hg] [facility] 09-23-2023 10:21-0500 SaO2% (BldA) [Mass fraction] 94 % [facility] 09-23-2023 10:21-0500 Systolic blood pressure 116 mm[Hg] [facility] 09-23-2023 08:53-0500 Body temperature 99.5 [degF] [facility] 09-23-2023 08:53-0500 Diastolic blood pressure 76 mm[Hg] [facility] 09-23-2023 08:53-0500 Heart rate 120 /min [facility] 09-23-2023 08:53-0500 Respiratory rate 20 /min [facility] 09-23-2023 08:53-0500 SaO2% (BldA) [Mass fraction] 98 % [facility] 09-23-2023 08:53-0500 Systolic blood pressure 124 mm[Hg] [facility] 08-22-2023 22:15-0500 Body temperature 98.96 [degF] Kaylinn Dokken [facility] 08-22-2023 22:15-0500 Diastolic blood pressure 83 mm[Hg] Kaylinn Dokken [facility] 08-22-2023 22:15-0500 Heart rate 98 /min Kaylinn Dokken [facility] 08-22-2023 22:15-0500 Respiratory rate 18 /min Kaylinn Dokken [facility] 08-22-2023 22:15-0500 SaO2% (BldA) [Mass fraction] 98 % Kaylinn Dokken [facility] 08-22-2023 22:15-0500 Systolic blood pressure 132 mm[Hg] Kaylinn Dokken [facility] 07-27-2023 21:06-0500 Body temperature 99.14 [degF] Kaylinn Dokken [facility] 07-27-2023 21:06-0500 Diastolic blood pressure 92 mm[Hg] Kaylinn Dokken [facility] 07-27-2023 21:06-0500 Heart rate 105 /min Kaylinn Dokken [facility] 07-27-2023 21:06-0500 Respiratory rate 16 /min Kaylinn Dokken [facility] 07-27-2023 21:06-0500 SaO2% (BldA) [Mass fraction] 100 % Kaylinn Dokken [facility] 07-27-2023 21:06-0500 Systolic blood pressure 144 mm[Hg] Kaylinn Dokken [facility] 07-25-2023 20:22-0500 Body temperature 97.88 [degF] Kosta Raul [facility] 07-25-2023 20:22-0500 Diastolic blood pressure 74 mm[Hg] Kosta Raul [facility] 07-25-2023 20:22-0500 Heart rate 91 /min Kosta Raul [facility] 07-25-2023 20:22-0500 Respiratory rate 17 /min Kosta Carter [facility] 07-25-2023 20:22-0500 SaO2% (BldA) [Mass fraction] 99 % Kosta Carter [facility] 07-25-2023 20:22-0500 Systolic blood pressure 113 mm[Hg] Kosta Carter [facility] 07-13-2023 17:51-0500 Diastolic blood pressure 93 mm[Hg] [facility] 07-13-2023 17:51-0500 Heart rate 121 /min [facility] 07-13-2023 17:51-0500 Respiratory rate 18 /min [facility] 07-13-2023 17:51-0500 SaO2% (BldA) [Mass fraction] 99 % [facility] 07-13-2023 17:51-0500 Systolic blood pressure 124 mm[Hg] [facility] 07-13-2023 16:32-0500 Diastolic blood pressure 89 mm[Hg] [facility] 07-13-2023 16:32-0500 Heart rate 105 /min [facility] 07-13-2023 16:32-0500 Respiratory rate 17 /min [facility] 07-13-2023 16:32-0500 SaO2% (BldA) [Mass fraction] 98 % [facility] 07-13-2023 16:32-0500 Systolic blood pressure 127 mm[Hg] [facility] 07-13-2023 15:29-0500 Body temperature 98.96 [degF] [facility] 07-13-2023 15:29-0500 Diastolic blood pressure 88 mm[Hg] [facility] 07-13-2023 15:29-0500 Heart rate 125 /min [facility] 07-13-2023 15:29-0500 Respiratory rate 18 /min [facility] 07-13-2023 15:29-0500 SaO2% (BldA) [Mass fraction] 98 % [facility] 07-13-2023 15:29-0500 Systolic blood pressure 120 mm[Hg] [facility] 04-24-2023 09:45-0400 Body temperature 99.86 [degF] [facility] 04-24-2023 09:45-0400 Diastolic blood pressure 97 mm[Hg] [facility] 04-24-2023 09:45-0400 Heart rate 121 /min [facility] 04-24-2023 09:45-0400 Respiratory rate 20 /min [facility] 04-24-2023 09:45-0400 SaO2% (BldA) [Mass fraction] 96 % [facility] 04-24-2023 09:45-0400 Systolic blood pressure 135 mm[Hg] [facility] 02-27-2023 10:53-0400 Body temperature 98.24 [degF] Bi Galeana [facility] 02-27-2023 10:53-0400 Diastolic blood pressure 87 mm[Hg] Bi Galeana [facility] 02-27-2023 10:53-0400 Heart rate 94 /min Bi Galeana [facility] 02-27-2023 10:53-0400 Respiratory rate 16 /min Bi Galeana [facility] 02-27-2023 10:53-0400 SaO2% (BldA) [Mass fraction] 99 % Bi Galeana [facility] 02-27-2023 10:53-0400 Systolic blood pressure 127 mm[Hg] Bi Galeana [facility] 01-14-2023 10:31-0400 Body temperature 98.42 [degF] Blake Rivera [facility] 01-14-2023 10:31-0400 Diastolic blood pressure 80 mm[Hg] Blake Rivera [facility] 01-14-2023 10:31-0400 Heart rate 94 /min Blake Rivera [facility] 01-14-2023 10:31-0400 Respiratory rate 18 /min Blake Rivera [facility] 01-14-2023 10:31-0400 SaO2% (BldA) [Mass fraction] 96 % Blake Rivera [facility] 01-14-2023 10:31-0400 Systolic blood pressure 114 mm[Hg] Blake Rivera [facility] 01-10-2023 09:13-0400 Body height 163.8 cm Orlando Pace MD Work Phone: [facility] 01-10-2023 09:13-0400 Body mass index (BMI) [Ratio] 44.99 kg/m2 Orlando Pace MD Work Phone: [facility] 01-10-2023 09:13-0400 Body temperature 97.9 [degF] Orlando Pace MD Work Phone: [facility] 01-10-2023 09:13-0400 Body weight 120.75 kg Orlando Pace MD Work Phone: [facility] 01-10-2023 09:13-0400 Diastolic blood pressure 80 mm[Hg] Orlando Pace MD Work Phone: [facility] 01-10-2023 09:13-0400 Heart rate 68 /min Orlando Pace MD Work Phone: [facility] 01-10-2023 09:13-0400 SaO2% (BldA) [Mass fraction] 98 % Orlando Pace MD Work Phone: [facility] 01-10-2023 09:13-0400 Systolic blood pressure 130 mm[Hg] Orlando Pace MD Work Phone: [facility] 12-04-2022 19:05-0400 Body temperature 98.42 [degF] [facility] 12-04-2022 19:05-0400 Diastolic blood pressure 81 mm[Hg] [facility] 12-04-2022 19:05-0400 Heart rate 75 /min [facility] 12-04-2022 19:05-0400 Respiratory rate 18 /min [facility] 12-04-2022 19:05-0400 SaO2% (BldA) [Mass fraction] 99 % [facility] 12-04-2022 19:05-0400 Systolic blood pressure 128 mm[Hg] [facility] 12-02-2022 04:35-0400 Diastolic blood pressure 74 mm[Hg] Eric Darrell [facility] 12-02-2022 04:35-0400 Heart rate 73 /min Eric Darrell [facility] 12-02-2022 04:35-0400 Respiratory rate 18 /min Eric Darrell [facility] 12-02-2022 04:35-0400 SaO2% (BldA) [Mass fraction] 99 % Eric Darrell [facility] 12-02-2022 04:35-0400 Systolic blood pressure 113 mm[Hg] Eric Darrell [facility] 12-02-2022 02:32-0400 Body temperature 97.52 [degF] Eric Darrell [facility] 12-02-2022 02:32-0400 Diastolic blood pressure 80 mm[Hg] Eric Darrell [facility] 12-02-2022 02:32-0400 Heart rate 95 /min Eric Darrell [facility] 12-02-2022 02:32-0400 Respiratory rate 16 /min Eric Darrell [facility] 12-02-2022 02:32-0400 SaO2% (BldA) [Mass fraction] 98 % Eric Darrell [facility] 12-02-2022 02:32-0400 Systolic blood pressure 115 mm[Hg] Eric Darrell [facility] 11-27-2022 23:03-0400 Hourly Rounding Kaylinn Dokken [facility] 11-27-2022 23:02-0400 Diastolic blood pressure 80 mm[Hg] Kaylinn Dokken [facility] 11-27-2022 23:02-0400 Heart rate 79 /min Kaylinn Dokken [facility] 11-27-2022 23:02-0400 Mean blood pressure 91 mm[Hg] Kaylinn Dokken [facility] 11-27-2022 23:02-0400 SaO2% (BldA) [Mass fraction] 97 % Kaylinn Dokken [facility] 11-27-2022 23:02-0400 Systolic blood pressure 114 mm[Hg] Kaylinn Dokken [facility] 11-27-2022 22:53-0400 Diastolic blood pressure 60 mm[Hg] Kaylinn Dokken [facility] 11-27-2022 22:53-0400 Heart rate 85 /min Kaylinn Dokken [facility] 11-27-2022 22:53-0400 Mean blood pressure 76 mm[Hg] Kaylinn Dokken [facility] 11-27-2022 22:53-0400 SaO2% (BldA) [Mass fraction] 97 % Kaylinn Dokken [facility] 11-27-2022 22:53-0400 Systolic blood pressure 107 mm[Hg] Kaylinn Dokken [facility] 11-27-2022 22:16-0400 Diastolic blood pressure 79 mm[Hg] Kaylinn Dokken [facility] 11-27-2022 22:16-0400 Heart rate 75 /min Kaylinn Dokken [facility] 11-27-2022 22:16-0400 Mean blood pressure 91 mm[Hg] Kaylinn Dokken [facility] 11-27-2022 22:16-0400 SaO2% (BldA) [Mass fraction] 99 % Kaylinn Dokken [facility] 11-27-2022 22:16-0400 Systolic blood pressure 114 mm[Hg] Kaylinn Dokken [facility] 11-27-2022 22:05-0400 Respiratory rate 18 /min Minervan Dokken [facility] 11-27-2022 21:30-0400 Respiratory rate 15 /min Nevaehylinn Dokken [facility] 11-27-2022 20:37-0400 Body temperature 98.06 [degF] Minervan Dokken [facility] 11-27-2022 20:37-0400 Heart rate 77 /min Minervan Dokken [facility] 11-27-2022 20:37-0400 Respiratory rate 16 /min Minervan Dokken [facility] 11-11-2022 19:35-0400 Body temperature 97.88 [degF] [facility] 11-11-2022 19:35-0400 Diastolic blood pressure 86 mm[Hg] [facility] 11-11-2022 19:35-0400 Heart rate 80 /min [facility] 11-11-2022 19:35-0400 Respiratory rate 20 /min [facility] 11-11-2022 19:35-0400 SaO2% (BldA) [Mass fraction] 98 % [facility] 11-11-2022 19:35-0400 Systolic blood pressure 128 mm[Hg] [facility] 11-08-2022 12:00-0400 Hourly Rounding Evan Printy [facility] 11-08-2022 12:00-0400 Promise to Return Evan Printy [facility] 11-08-2022 11:00-0400 Hourly Rounding Evan Printy [facility] 11-08-2022 11:00-0400 Promise to Return Evan Printy [facility] 11-08-2022 10:00-0400 Hourly Rounding Evan Printy [facility] 11-08-2022 10:00-0400 Promise to Return Evan Printy [facility] 11-08-2022 08:00-0400 Blood Pressure Location Evan Printy [facility] 11-08-2022 08:00-0400 Body temperature 97.88 [degF] Evan Printy [facility] 11-08-2022 08:00-0400 Diastolic blood pressure 75 mm[Hg] Evan Printy [facility] 11-08-2022 08:00-0400 Heart rate 96 /min Evan Printy [facility] 11-08-2022 08:00-0400 Mean blood pressure 90 mm[Hg] Evan Printy [facility] 11-08-2022 08:00-0400 Respiratory rate 18 /min Evan Printy [facility] 11-08-2022 08:00-0400 SaO2% (BldA) [Mass fraction] 99 % Evan Printy [facility] 11-08-2022 08:00-0400 Systolic blood pressure 120 mm[Hg] Evan Printy [facility] 11-07-2022 20:45-0400 Heart rate 86 /min Evan Printy [facility] 11-07-2022 20:45-0400 SaO2% (BldA) [Mass fraction] 95 % Evan Printy [facility] 11-07-2022 20:45-0400 Body temperature 97.52 [degF] Evan Printy [facility] 11-07-2022 20:45-0400 Diastolic blood pressure 61 mm[Hg] Evan Printy [facility] 11-07-2022 20:45-0400 Mean blood pressure 70 mm[Hg] Evan Printy [facility] 11-07-2022 20:45-0400 Systolic blood pressure 90 mm[Hg] Evan Printy [facility] 11-07-2022 20:45-0400 Blood Pressure Location Evan Printy [facility] 11-07-2022 20:45-0400 Mean blood pressure 71 mm[Hg] Evan Printy [facility] 11-07-2022 20:45-0400 Respiratory rate 18 /min Evan Printy [facility] 11-07-2022 14:00-0400 Body temperature 98.6 [degF] Evan Printy [facility] 11-07-2022 14:00-0400 Diastolic blood pressure 66 mm[Hg] Evan Printy [facility] 11-07-2022 14:00-0400 Heart rate 90 /min Evan Printy [facility] 11-07-2022 14:00-0400 Mean blood pressure 81 mm[Hg] Evan Printy [facility] 11-07-2022 14:00-0400 SaO2% (BldA) [Mass fraction] 98 % Evan Printy [facility] 11-07-2022 14:00-0400 Systolic blood pressure 110 mm[Hg] Evan Printy [facility] 11-07-2022 04:10-0400 Mean blood pressure 64 mm[Hg] Evan Printy [facility] 11-07-2022 00:40-0400 Mean blood pressure 72 mm[Hg] Evan Printy [facility] 11-06-2022 18:00-0400 Body temperature 97.88 [degF] Evan Printy [facility] 11-06-2022 18:00-0400 Respiratory rate 18 /min Evan Printy [facility] 11-06-2022 16:00-0400 Body temperature 97.7 [degF] Evan Printy [facility] 11-06-2022 15:00-0400 Body temperature 98.96 [degF] Evan Printy [facility] 11-06-2022 13:25-0400 FIO2 99 % Evan Printy [facility] 11-06-2022 13:20-0400 FIO2 99 % Evan Printy [facility] 11-06-2022 13:15-0400 FIO2 99 % Evan Printy [facility] 11-06-2022 09:26-0400 Heart rate 101 /min Evan Printy [facility] 11-02-2022 20:10-0400 Hourly Rounding Alexys William [facility] Comment on above: Result Comment: pt. discharges off unit ambulatory to private car; assistance offered and declined 11-02-2022 20:09-0400 Hourly Rounding Alexys Delgado [facility] Comment on above: Result Comment: discharge instructions sabiha curtis, questions answered, papers signed 11-02-2022 19:59-0400 Hourly Rounding Alexys Delgado [facility] Comment on above: Result Comment: pt. [...] 11-02-2022 19:14-0400 Blood Pressure Location Alexys Delgado [facility] 11-02-2022 19:14-0400 Diastolic blood pressure 71 mm[Hg] Alexys Delgado [facility] 11-02-2022 19:14-0400 Heart rate 108 /min Alexys Delgado [facility] 11-02-2022 19:14-0400 Mean blood pressure 86 mm[Hg] Alexys Delgado [facility] 11-02-2022 19:14-0400 Promise to Return Alexys Delgado [facility] 11-02-2022 19:14-0400 Respiratory rate 18 /min Alexys Delgado [facility] 11-02-2022 19:14-0400 Systolic blood pressure 117 mm[Hg] Alexys Delgado [facility] 11-02-2022 18:30-0400 Body temperature 98.06 [degF] Alexys Delgado [facility] 11-02-2022 18:30-0400 Diastolic blood pressure 59 mm[Hg] Alexys Delgado [facility] 11-02-2022 18:30-0400 Heart rate 98 /min Alexys Delgado [facility] 11-02-2022 18:30-0400 Mean blood pressure 80 mm[Hg] Alexys Delgado [facility] 11-02-2022 18:30-0400 Respiratory rate 18 /min Alexys Delgado [facility] 11-02-2022 18:30-0400 Systolic blood pressure 121 mm[Hg] Alexys Delgado [facility] 10-26-2022 13:30-0400 Respiratory rate 20 /min Shabbir Spettel Work Phone: [facility] 10-26-2022 13:22-0400 SaO2% (BldA) [Mass fraction] 98 % Shabbir Spettel Work Phone: [facility] 10-26-2022 11:40-0400 Body height 165.1 cm Shabbir Spettel Work Phone: [facility] 10-26-2022 11:40-0400 Body weight 125.64 kg Shabbir Spettel Work Phone: [facility] 10-26-2022 10:24-0400 Diastolic blood pressure 64 mm[Hg] Shabbir Spettel Work Phone: [facility] 10-26-2022 10:24-0400 Heart rate 91 /min Shabbir Spettel Work Phone: [facility] 10-26-2022 10:24-0400 Systolic blood pressure 101 mm[Hg] Shabbir Spettel Work Phone: [facility] 10-25-2022 15:30-0400 Hourly Rounding Alexys Delgado [facility] Comment on above: Result Comment: discharge instructions sabiha curtis, encouraged to return for increasing pain or regular ctx 10-25-2022 15:11-0400 Diastolic blood pressure 61 mm[Hg] Alexys Delgado [facility] 10-25-2022 15:11-0400 Heart rate 100 /min Alexys Delgado [facility] 10-25-2022 15:11-0400 Mean blood pressure 79 mm[Hg] Alexys Delgado [facility] 10-25-2022 15:11-0400 Respiratory rate 20 /min Alexys Delgado [facility] 10-25-2022 15:11-0400 Systolic blood pressure 114 mm[Hg] Alexys Delgado [facility] 10-25-2022 15:00-0400 Hourly Rounding Alexys Delgado [facility] Comment on above: Result Comment: pt holding abdomen state s discomfort at 8. abdomen palpated soft 10-25-2022 07:50-0400 Blood Pressure Location Alexys Delgado [facility] 10-25-2022 07:50-0400 Diastolic blood pressure 66 mm[Hg] Alexys Delgado [facility] 10-25-2022 07:50-0400 Heart rate 117 /min Alexys Delgado [facility] 10-25-2022 07:50-0400 Mean blood pressure 87 mm[Hg] Alexys Delgado [facility] 10-25-2022 07:50-0400 Respiratory rate 18 /min Alexys Delgado [facility] 10-25-2022 07:50-0400 Systolic blood pressure 130 mm[Hg] Alexys Delgado [facility] 10-23-2022 17:00-0400 Blood Pressure Location Evan Kenny [facility] 10-23-2022 17:00-0400 Diastolic blood pressure 59 mm[Hg] Evan Printy [facility] 10-23-2022 17:00-0400 Heart rate 99 /min Evan Printy [facility] 10-23-2022 17:00-0400 Hourly Rounding Evan Printy [facility] 10-23-2022 17:00-0400 Mean blood pressure 81 mm[Hg] Evan Printy [facility] 10-23-2022 17:00-0400 Promise to Return Evan Printy [facility] 10-23-2022 17:00-0400 Respiratory rate 18 /min Evan Printy [facility] 10-23-2022 17:00-0400 SaO2% (BldA) [Mass fraction] 100 % Evan Printy [facility] 10-23-2022 17:00-0400 Systolic blood pressure 126 mm[Hg] Evan Printy [facility] 10-23-2022 16:00-0400 Hourly Rounding Evan Printy [facility] 10-23-2022 16:00-0400 Promise to Return Evan Printy [facility] 10-23-2022 15:00-0400 Body temperature 98.42 [degF] Evan Printy [facility] 10-23-2022 15:00-0400 Diastolic blood pressure 73 mm[Hg] Evan Printy [facility] 10-23-2022 15:00-0400 Heart rate 108 /min Evan Printy [facility] 10-23-2022 15:00-0400 Hourly Rounding Evan Printy [facility] 10-23-2022 15:00-0400 Mean blood pressure 88 mm[Hg] Evan Moore [facility] 10-23-2022 15:00-0400 Promise to Return Evan Moore [facility] 10-23-2022 15:00-0400 Systolic blood pressure 118 mm[Hg] Evan Moore [facility] 10-20-2022 23:29-0400 Hourly Rounding Alexys Delgado [facility] Comment on above: Result Comment: Patient discharged to pr ivate vehicle. No s/s of distress. 10-20-2022 23:21-0400 Hourly Rounding Alexys Delgado [facility] Comment on above: Result Comment: Plan of care reviewed. P atient up to the bathroom to change. 10-20-2022 23:00-0400 Hourly Rounding Alexys Delgado [facility] Comment on above: Result Comment: Patient resting in bed d rinking water. Denies any needs. Call light in reach. 10-20-2022 22:32-0400 Diastolic blood pressure 58 mm[Hg] Alexys Delgado [facility] 10-20-2022 22:32-0400 Heart rate 99 /min Alexys Delgado [facility] 10-20-2022 22:32-0400 Mean blood pressure 77 mm[Hg] Alexys Delgado [facility] 10-20-2022 22:32-0400 Respiratory rate 16 /min Alexys Delgado [facility] 10-20-2022 22:32-0400 Systolic blood pressure 116 mm[Hg] Alexys Delgado [facility] 10-20-2022 15:15-0400 Hourly Rounding Alexys Delgado [facility] Comment on above: Result Comment: reviewed d/c instruction s with pt, voices understanding. pt mother at bedside voices understanding. 10-20-2022 14:45-0400 Hourly Rounding Alexys Delgado [facility] 10-20-2022 13:55-0400 Blood Pressure Location Alexys Delgado [facility] 10-20-2022 13:55-0400 Diastolic blood pressure 55 mm[Hg] Alexys Delgado [facility] 10-20-2022 13:55-0400 Heart rate 103 /min Alexys Delgado [facility] 10-20-2022 13:55-0400 Mean blood pressure 71 mm[Hg] Alexys Delgado [facility] 10-20-2022 13:55-0400 Systolic blood pressure 102 mm[Hg] Alexys Delgado [facility] 10-20-2022 13:51-0400 Body temperature 98.24 [degF] Alexys Delgado [facility] 10-20-2022 13:51-0400 Respiratory rate 20 /min Alexys Delgado [facility] 10-20-2022 13:45-0400 Hourly Rounding Alexys Delgado [facility] 10-01-2022 08:30-0500 Hourly Rounding Evan Moore [facility] 09-09-2022 14:52-0500 Respiratory rate 22 /min Shabbir Mi Work Phone: [facility] 09-09-2022 14:23-0500 Diastolic blood pressure 65 mm[Hg] Shabbir Mi Work Phone: [facility] 09-09-2022 14:23-0500 Heart rate 123 /min Shabbir Spettel Work Phone: [facility] 09-09-2022 14:23-0500 Systolic blood pressure 106 mm[Hg] Shabbir Spettel Work Phone: [facility] 09-09-2022 13:48-0500 SaO2% (BldA) [Mass fraction] 99 % Shabbir Spettel Work Phone: [phone] [place] [address] 09-09-2022 13:47-0500 Body temperature 97.9 [degF] Shabbir Spettel Work Phone: [facility] 09-09-2022 13:44-0500 Body height 165.1 cm Shabbir Spettel Work Phone: [facility] 09-09-2022 13:44-0500 Body weight 126.09 kg Shabbir Spettel Work Phone: [facility] 04-20-2022 20:20-0400 Body height 165.1 cm Shabbir Spettel Work Phone: [facility] 04-20-2022 20:20-0400 Body temperature 98.8 [degF] Shabbir Spettel Work Phone: [facility] 04-20-2022 20:20-0400 Body weight 127 kg Shabbir Spettel Work Phone: [facility] 04-20-2022 20:20-0400 Diastolic blood pressure 81 mm[Hg] Shabbir Spettel Work Phone: [facility] 04-20-2022 20:20-0400 Heart rate 102 /min Shabbir Spettel Work Phone: [facility] [facility] 04-20-2022 20:20-0400 Respiratory rate 18 /min Shabbir Spettel Work Phone: [facility] 04-20-2022 20:20-0400 SaO2% (BldA) [Mass fraction] 98 % Shabbir Spettel Work Phone: [facility] 04-20-2022 20:20-0400 Systolic blood pressure 124 mm[Hg] Shabbir Spettel Work Phone: [facility] 04-16-2022 04:19-0400 Body temperature 98.9 [degF] Shabbir Spettel Work Phone: [facility] 04-16-2022 04:19-0400 Diastolic blood pressure 99 mm[Hg] Shabbir Spettel Work Phone: [facility] 04-16-2022 04:19-0400 Heart rate 139 /min Shabbir Spettel Work Phone: [facility] 04-16-2022 04:19-0400 Respiratory rate 22 /min Shabbir Spettel Work Phone: [facility] 04-16-2022 04:19-0400 SaO2% (BldA) [Mass fraction] 95 % Shabbir Spettel Work Phone: [facility] 04-16-2022 04:19-0400 Systolic blood pressure 133 mm[Hg] Shabbir Spettel Work Phone: [facility] 04-16-2022 04:15-0400 Body height 160.02 cm Shabbir Spettel Work Phone: [facility] 04-16-2022 04:15-0400 Body weight 126.09 kg Shabbir Spettel Work Phone: [facility] 01-16-2022 13:23-0400 Body height 163.83 cm Mattie Lipscomb Work Phone: [facility] Work Phone: 01-16-2022 13:23-0400 Body mass index (BMI) [Ratio] 45.97 kg/m2 Mattie Rodriguez Ruel Work Phone: [facility] [place] Work Phone: 01-16-2022 13:23-0400 Body surface area Derived from formula 2.24 m2 Mattie Montes De Ocaabrese Work Phone: [facility] [place] Work Phone: 01-16-2022 13:23-0400 Body temperature 97.4 [degF] Mattie Rodriguez Ruel Work Phone: [facility] [place] Work Phone: 01-16-2022 13:23-0400 Body weight 123.38 kg Mattie Montes De Ocaabrese Work Phone: [facility] [place] Work Phone: 01-16-2022 13:23-0400 Diastolic blood pressure 72 mm[Hg] Mattie Montes De Ocaabrese Work Phone: [facility] [place] Work Phone: 01-16-2022 13:23-0400 Heart rate 120 /min Mattie Mcarthurese Work Phone: [facility] [place] Work Phone: 01-16-2022 13:23-0400 Respiratory rate 16 /min Mattie Montes De Ocaabrese Work Phone: [facility] [place] Work Phone: 01-16-2022 13:23-0400 SaO2% (BldA) [Mass fraction] 99 % Mattie Mcarthurese Work Phone: [facility] [place] Work Phone: 01-16-2022 13:23-0400 Systolic blood pressure 108 mm[Hg] Mattie Lipscomb Work Phone: [facility] [place] Work Phone: 01-16-2022 13:23-0400 3 1 Mattie Lipscomb Work Phone: [facility] Work Phone: Comment on above: GRAV PARA 01-04-2020 11:27-0400 BMI (Body Mass Index) 42.51 kg/m2 [facility] [place] 01-04-2020 11:27-0400 Body Temperature 98.71 [degF] [facility] 01-04-2020 11:27-0400 Body weight 108.86 kg [facility] [place] , [place] 01-04-2020 11:27-0400 BP Diastolic 82 mm[Hg] [facility] [place] 01-04-2020 11:27-0400 BP Systolic 121 mm[Hg] [facility] [place] 01-04-2020 11:27-0400 Height 160 cm [facility] 01-04-2020 11:27-0400 Pulse (Heart Rate) 88 /min [facility] [place] 01-04-2020 11:27-0400 Pulse Oximetry 96 % [facility] [place] [facility] [place] 01-04-2020 11:27-0400 Respiratory Rate 16 /min [facility] [place] 12-30-2019 10:26-0400 BMI (Body Mass Index) 42.51 kg/m2 [facility] [place] 12-30-2019 10:26-0400 Body Temperature 96.69 [degF] [facility] 12-30-2019 10:26-0400 Body weight 108.86 kg [facility] [place] 12-30-2019 10:26-0400 Height 160 cm [facility] [place] 12-30-2019 10:26-0400 Pulse (Heart Rate) 87 /min [facility] [place] 12-30-2019 10:26-0400 Pulse Oximetry 98 % [facility] [place] 12-30-2019 10:26-0400 Respiratory Rate 19 /min [facility] [place] 03-09-2019 00:05-0400 BP Diastolic 66 mm[Hg] [facility] [place] , [place] 03-09-2019 00:05-0400 BP Systolic 100 mm[Hg] [facility] [employer] [facility] [place] 03-09-2019 00:05-0400 Pulse (Heart Rate) 59 /min [facility] [place] 03-09-2019 00:05-0400 Pulse Oximetry 100 % [facility] [place] 03-09-2019 00:05-0400 Respiratory Rate 14 /min [facility] [employer], [place] 03-08-2019 20:58-0400 BMI (Body Mass Index) 40.74 kg/m2 [facility] [employer] [place] 03-08-2019 20:58-0400 Body Temperature 98.6 [degF] [employer] [place] 03-08-2019 20:58-0400 Body weight 104.33 kg [facility] [place] Encounters Encounter Date Encounter Type Care Provider Facility Start: 12-28-2024 End: 12-28-2024 Bamboo flowsheet Doreen Garrett [employer] Work Phone: [facility] Start: 12-28-2024 End: 12-28-2024 Bamboo flowsheet Doreen Garrett [employer] Work Phone: [facility] Start: 12-28-2024 End: 12-28-2024 ambulatory DOREEN GARRETT Not Available Start: 12-28-2024 End: 12-28-2024 Patient encounter status Doreen Garrett NP Work Phone: [facility] Start: 12-28-2024 End: 12-28-2024 Periodic preventive med est patient 18-39 yrs Doreen Garrett [employer] Work Phone: [facility] Comment on above: Encounter for gyneco logical examination with abnormal finding (Primary Dx); Vaginal odor; Vaginal leukorrhea; Abnormal urine odor; High risk sexual behavior, unspecified type Start: 11-07-2024 End: 11-07-2024 ambulatory [facility] Work Phone: Start: 11-07-2024 End: 11-07-2024 Departed Referred Triny Ray MD Work Phone: [facility] Start: 10-30-2024 End: 10-30-2024 Emergency department patient visit Blake Rivera [facility] Start: 10-16-2024 End: 10-16-2024 ambulatory Triny Ray [facility] Work Phone: Start: 10-16-2024 End: 10-16-2024 Departed Referred Triny Ray MD Work Phone: [facility] Start: 10-08-2024 End: 10-08-2024 Emergency department patient visit Eric ChaseJp Ramírez [facility] Start: 09-08-2024 End: 12-07-2024 ambulatory OFFICE COPY SELECTOR DOREEN HA Facility:[facility] Start: 09-08-2024 End: 09-08-2024 ambulatory Papi WALTHAM [facility] Start: 09-08-2024 End: 09-08-2024 ambulatory OFFICE COPY SELECTOR DOREEN HA Facility:[facility] Start: 09-02-2024 End: 09-02-2024 ambulatory DOREEN HA [...] Not Available Start: 07-13-2024 End: 07-13-2024 ambulatory OFFICE COPY SELECTOR DOREEN HA Facility:[facility] Start: 07-13-2024 End: 07-13-2024 Patient encounter procedure DOREEN HA [facility] Start: 07-08-2024 End: 08-30-2024 ambulatory OFFICE COPY SELECTOR DOREEN HA Facility:[facility] Start: 07-08-2024 End: 08-30-[address]ur[address] HA [facility] Start: 07-02-2024 End: 07-02-2024 Bamboo flowsheet [...] Start: 05-31-2024 End: 05-31-2024 ambulatory DOREEN HA Facility:[facility] Start: 05-31-2024 End: 05-31-2024 Patient encounter procedure DOREEN CORDOVAAULT [facility] Start: 05-30-2024 End: 05-30-2024 Emergency department patient visit Ashley Faustin [facility] Start: 05-19-2024 End: 05-19-2024 Bamboo flowsheet [...] 05-17-2024 Emergency department patient visit Bi Galeana [facility] Start: 05-09-2024 End: 05-09-2024 Emergency department patient visit Bi Galeana [facility] Start: 01-12-2024 End: 01-13-2024 Emergency department patient visit Aleta Oliveira [facility] Start: 2024 End: 01-07-2024 Emergency department patient visit Bi Galeana [facility] Start: 09-23-2023 End: 09-23-2023 Emergency department patient visit Ashley Faustin [facility] Start: 08-22-2023 End: 08-22-2023 Emergency department patient visit Aleta Oliveira [facility] Start: 07-27-2023 End: 07-27-2023 Emergency department patient visit Aleta Oliveira [facility] Start: 07-25-2023 End: 07-25-2023 Emergency department patient visit Kosta Carter [facility] Start: 07-13-2023 End: 07-13-2023 Emergency department patient visit Ashley Faustin [facility] Start: 06-13-2023 End: 06-13-2023 Emergency department patient visit Bi Galeana Facility:[facility] Start: 05-15-2023 End: 05-15-2023 ambulatory [facility] Facility:[facility] Start: 04-24-2023 End: 04-24-2023 Emergency department patient visit Ahsley Faustin [facility] Start: 03-26-2023 End: 03-26-2023 ambulatory JEANINE TORRE Facility:[facility] Start: 02-27-2023 End: 02-27-2023 Emergency department patient visit Bi Galeana [facility] Start: 01-14-2023 End: 01-14-2023 Emergency department patient visit Blake Rivera [facility] Start: 01-10-2023 End: 01-10-2023 Office outpatient visit 40 minutes Orlando Pace MD Work Phone: [facility] Comment on above: Bipolar and related disorder (CMS/HCC) (Primary Dx); Schizophrenia, unspecified type (CMS/HCC); Fibromyalgia; Anxiety; Class 3 severe obesity due to excess calories with serious comorbidity and body mass index (BMI) of 40.0 to 44.9 in adult (CMS/HCC) Start: 12-04-2022 End: 12-04-2022 Emergency department patient visit ORLANDO PACE [facility] Start: 12-02-2022 End: 12-02-2022 Emergency department patient visit Eric Ramírez [facility] Start: 11-27-2022 End: 11-27-2022 Emergency department patient visit Aleta Oliveira [facility] Start: 11-11-2022 End: 11-11-2022 Emergency department patient visit Ashley Tru Ramin [facility] Start: 11-06-2022 End: 11-08-2022 Evaluation and management of inpatient Evan Moore [facility] Start: 11-02-2022 End: 11-02-2022 OB Triage Alexys Delgado [facility] Start: 10-26-2022 End: 10-26-2022 Evaluation and management of inpatient Shabbir Mi Work Phone: [facility] Work Phone: Start: 10-26-2022 End: 10-26-2022 Evaluation and management of inpatient Shabbir Mi Work Phone: [facility] Work Phone: Start: 10-26-2022 End: 10-26-2022 observation encounter Shabbir Mi Work Phone: [facility] Work Phone: Start: 10-25-2022 End: 10-25-2022 OB Triage Alexys Rosas William [facility] Start: 10-25-2022 End: 10-25-2022 Patient encounter procedure Alexys Rosas William [facility] Start: 10-23-2022 End: 10-23-2022 OB Triage Evan Moore [facility] Start: 10-20-2022 End: 10-20-2022 OB Triage Alexys Delgado [facility] Start: 10-20-2022 End: 10-20-2022 OB Triage Alexys Rosas William [facility] Start: 10-17-2022 End: 10-17-2022 Patient encounter procedure Evan Barnesy [facility] Start: 10-15-2022 End: 10-15-2022 Patient encounter procedure Evan Barnesy [facility] Start: 10-11-2022 End: 10-11-2022 Patient encounter procedure Evan Moore [facility] Start: 10-08-2022 End: 10-08-2022 Patient encounter procedure Evan Moore [facility] Start: 10-03-2022 End: 10-03-2022 Patient encounter procedure Evan Moore [facility] Start: 10-01-2022 End: 10-01-2022 Patient encounter procedure Evan Moore [facility] Start: 09-27-2022 End: 09-27-2022 Patient encounter procedure Evan Moore [facility] Start: 09-09-2022 End: 09-09-2022 Patient encounter procedure Shabbir Mi Work Phone: [facility] Start: 09-03-[address] Orlando solorzano K[facility] Facility:[id number] Start: 08-16-2022 End: 08-16-2022 ambulatory Shabbir Mi Work Phone: [facility] Work Phone: Start: 08-16-2022 End: 08-16-2022 Patient encounter procedure Shabbir Mi Work Phone: [facility] [place] Work Phone: Start: 08-09-2022 End: 08-09-2022 ambulatory Shabbir Mi Work Phone: [facility] Work Phone: Start: 08-09-2022 End: 08-09-2022 Patient encounter procedure Shabbir Mi Work Phone: [facility] [place] Work Phone: Start: 04-20-2022 End: 04-20-2022 Emergency department patient visit Shabbir Mi Work Phone: [facility] Start: 04-18-[address] Mattie Lipscomb Facility:[id number] Start: 04-18-2022 End: 04-18-2022 Patient encounter procedure Doreen GARRETT [facility] Start: 04-16-2022 End: 04-16-2022 Emergency department patient visit Shabbir Rodneyinocenciorommel Work Phone: [facility] Start: 03-25-2022 End: 03-25-2022 Patient encounter procedure Doreen GARRETT [facility] Start: 03-18-[address] Mattie Lipscomb Facility:[id number] Start: 03-15-2022 AUDIT Mattie evans Work Phone: [facility] Work Phone: Start: 02-08-2022 Chart Update [facility] Start: 02-07-[address] Mattie Lipscomb Facility:[id number] Start: 01-18-2022 Chart Update Mattie evans [facility] Work [facility]: Start: 01-16-2022 Initial preventive medicine new pt age 18-39yrs Mattie Lipscomb [facility] Work [facility]: Start: 01-16-[address] Mattie Lipscomb Facility:[id number] Start: 01-02-2022 ambulatory Referral [facility] Facility: [id number] Start: 12-10-2021 End: 12-10-2021 Emergency department patient visit MIKO CROWDER [facility] Start: 12-20-2020 End: 12-20-2020 ambulatory GRACIA WHITNEY Facility:[id number] Start: 01-04-2020 End: 01-04-2020 Emergency department patient visit [facility] ED Comment on above: Trichomonas vaginiti s (Primary Dx); Blister (nonthermal) of vagina and vulva, initial encounter; Acute cystitis without hematuria Start: 12-30-2019 End: 12-30-2019 Emergency department patient visit [facility] ED Comment on above: Acute cystitis witho ut hematuria (Primary Dx); Skin yeast infection Start: 03-08-2019 End: 03-09-2019 Emergency department patient visit [facility] ED Comment on above: Constipation, unspec ified constipation type (Primary Dx); Lower abdominal pain; Nausea; Dysuria; Chronic bilateral low back pain with bilateral sciatica Start: 05-05-2018 End: 05-05-2018 Emergency department patient visit MIKO CARLOS [facility] Start: 07-28-2017 End: 07-28-2017 Emergency department patient visit VANDANA WHITEHEAD [facility] Start: 04-29-2017 End: 04-29-2017 Emergency department patient visit [facility] Start: 04-01-2017 End: 04-02-2017 Emergency department patient visit [facility] Encounter for gynecological examination (general) (routine) without abnormal findings Mattie Lipscomb Work Phone: [facility] Work Phone: Comment on above: 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; Procedures Date Procedure Procedure Detail Performing Clinician Start: 12-28-2024 Urnls dip stick/tabl et rgnt non-auto w/o micrscp Doreen Garrett NP Work Phone: Start: 10-16-2024 Urine culture Triny Marsh MD Work Phone: Start: 10-26-2022 Urine culture Shabbir Mi Work [...] Pascual DALLIN Start: 04-29-2017 Microscopic urinalysis YURI PHILIP Start: 04-29-2017 , URINE THERESA PHILIP Start: 04-29-2017 Urinalysis YURI MICHELLE VALDERRAMA Start: 04-01-2017 STREP A DNA PROBE, AMPLIFICATION YURI PHILIP Start: 04-01-2017 STREP SCREEN GROUP A THROAT YURI KERRNER No history of surgery Roney Lipscomb Work Phone: None (qualifier value) Obdulia GARRETT Streptococcus pyogen es antigen assay Shabbir Mi Work Phone: Plan of Treatment Date Care Activity Detail Author Start: 01-07-2048 Zoster Vaccines (1 o f 2) Zoster Vaccines (1 of 2) [facility] Start: 11-07-2032 DTaP/Tdap/Td Vaccine s (11 - Td or Tdap) DTaP/Tdap/Td Vaccines (11 - Td or Tdap) [facility] Start: 01-16-2027 Lipid panel Lipid Panel [facility] Start: 12-29-2024 Screening for malign ant neoplasm of cervix [facility] Start: 12-28-2024 End: 12-28-2024 Patient encounter procedure 12/28/2024 1:00 PM EDT Office Visit [facility] [address] [id number] Doreen Garrett, [employer] [address] [facility] [place] [address] [facility] Start: 11-07-2024 Urine culture [facility] Start: 11-07-2024 Bacteria identified in Urine by Culture Urine Culture [facility] Start: 10-16-2024 Bacteria identified in Urine by Culture Urine Culture [facility] Start: 10-16-2024 Urine culture [facility] Start: 07-30-2024 End: 07-30-2024 Patient encounter procedure 07/30/2024 8:00 AM EST Office Visit [facility] [address] [place] [phone] Familia Knight, DPM FACFAS [address] [facility] [place] [address] Arrived [facility] Comment on above: Arrived Start: 07-02-2024 End: 07-02-2024 Clinical Support 07/02/2024 7:50 AM EST Clinical Support [facility] [address] [place] [phone] Familia Knight, DPM FACFAS [address] [facility] [place] [address] Arrived [facility] Comment on above: Arrived Start: 06-02-2024 End: 06-02-2024 Clinical Support 06/02/2024 1:50 PM EST Clinical Support [facility] [address] [place] [phone] Familia Knight, DPM FACFAS [address] [facility] [place] [address] [facility] Start: 05-19-2024 End: 05-19-2024 Patient encounter procedure 05/19/2024 1:50 PM EDT Office Visit [facility] [address] [place] [phone] Familia Knight, DPM [address] [address] Arrived [facility] Comment on above: Arrived Start: 03-28-2024 Influenza vaccination Influenza Vacc ine (#1) [facility] Start: 04-14-2023 End: 04-14-2023 Patient encounter procedure 04/14/2023 9:30 AM EDT Office Visit [facility] [address] [phone] Orlando Pace MD [address] [address] [facility] Start: 03-28-2023 Influenza vaccination Influenz a Vaccine (Season Ended) [facility] Start: 10-26-2022 Bacteria identified in Urine by Culture Urine Culture [facility] Start: 10-26-2022 [facility] Start: 10-26-2022 [facility] Start: 10-26-2022 Hospital admission [facility] Start: 09-09-2022 [facility] Start: 09-09-2022 Hospital admission [facility] Start: 03-18-2022 EPV, Provider: Janessa Bennett, Status: Pen, Time: 9:30 AM EPV, Provider: Janessa Bennett, Status: Pen, Time: 9:30 AM [facility] Work Phone: Start: 02-12-2022 NURSEVST, Provider: LADLE REPAIRMAN ANTHONY VÁZQUEZ, Status: Pen, Time: 1:15 PM NURSEVST, Provider: LADLE REPAIRMAN ANTHONY VÁZQUEZ, Status: Pen, Time: 1:15 PM [facility] Work Phone: Start: 02-07-2022 ECHO, Provider: MEDI NA HHVI,MG CARD, Status: Pen, Time: 8:00 AM ECHO, Provider: DICKSON HHVI,MG CARD, Status: Pen, Time: 8:00 AM [facility] Work Phone: Start: 03-28-2020 Influenza vaccination Flu vacc ine (Season Ended) [place] Start: 03-28-2019 Influenza vaccination Flu vaccine (# 1) [place] Start: 2019 Cervical cancer screen Cervical canc er [place] Start: 2019 Screening for malign ant neoplasm of cervix [facility] Start: 2017 DTaP/Tdap/Td vaccine (1 - Tdap) DTaP/Tdap/Td vaccine (1 - Tdap) [place] Start: 04-06-2016 Chlamydia screen Chlamydia screen [place], [place] Start: 04-06-2016 Screening for Chlamy lavon trachomatis Chlam[place] Start: 01-07-2016 Hepatitis C screening Hepatitis C [facility] Start: 2013 HIV screen [facility] [place] [place] Start: 2013 HIV screening [facility] screen [facility] [place] Start: 2013 HPV vaccine (1 - Fem artie 3-dose series) HPV vaccine (1 - Female 3-dose series) [place] Start: 2011 Varicella Vaccine (1 of 2 - 13+ 2-dose series) Varicella Vaccine (1 of 2 - 13+ 2-dose series) [place] Start: 2009 HPV vaccine (1 - 2-d ose series) HPV vaccine (1 - 2-dose series) [place] Start: 1999 Varicella vaccine (1 of 2 - 2-dose childhood series) Varicella vaccine (1 of 2 - 2-dose childhood series) [place] Start: 1998 COVID-19 Vaccine (#1) COVID-19 Vacci ne (#1) [facility] Start: 1998 HIV screening HIV Screening [facility] Start: 1998 Yearly Adult Physical Yearly Adult P hysical [facility] End: 03-08-2019 Bacteria identified Cx Nom (U) Urine Culture Microbiology STAT Once for 1 Occurrences starting 03/08/2019 until 03/08/2019 [place] Comment on above: Once for 1 Occurrenc es starting 03/08/2019 until 03/08/2019 End: 01-04-2020 C.trachomatis N.gonorrhoeae DNA, Urine C.trachomatis N.gonorrhoeae DNA, Urine Microbiology Routine One Time for 1 Occurrences starting 01/04/2020 until 01/04/2020 [place] Comment on above: One Time for 1 Occur rences starting 01/04/2020 until 01/04/2020 End: 03-08-2019 CT ABDOMEN PELVIS W IV CONTRAST Additional Contrast? None CT ABDOMEN PELVIS W IV CONTRAST Additional Contrast? None Imaging STAT Once for 1 Occurrences starting 03/08/2019 until 03/08/2019 [place] Comment on above: Once for 1 Occurrenc es starting 03/08/2019 until 03/08/2019 CT ABDOMEN PELVIS W IV CONTRAST Additional Contrast? None CT ABDOMEN PELVIS W IV CONTRAST Additional Contrast? None Imaging STAT 03/08/2019 11:16 PM EDT [place] End: 12-30-2019 Culture, Urine Culture, Urine Microbiology STAT Once for 1 Occurrences starting 12/30/2019 until 12/30/2019 [place] Comment on above: Once for 1 Occurrenc es starting 12/30/2019 until 12/30/2019 Culture, Urine [place] End: 01-04-2020 Culture, Urine Culture, Urine Microbiology STAT Once for 1 Occurrences starting 01/04/2020 until 01/04/2020 [place] Comment on above: Once for 1 Occurrenc es starting 01/04/2020 until 01/04/2020 End: 01-04-2020 HERPES SIMPLEX VIRUS (HSV) I/II ANTIBODIES IGG & IGM W/ REFLEX HERPES SIMPLEX VIRUS (HSV) I/II ANTIBODIES IGG & IGM W/ REFLEX Lab Routine One Time for 1 Occurrences starting 01/04/2020 until 01/04/2020 [place] Comment on above: One Time for 1 Occur rences starting 01/04/2020 until 01/04/2020 HERPES SIMPLEX VIRUS (HSV) I/II ANTIBODIES IGG & IGM W/ REFLEX HERPES SIMPLEX VIRUS (HSV) I/II ANTIBODIES IGG & IGM W/ REFLEX Lab STAT 01/04/2020 12:00 PM EDT [place] [employer] trichomonas vaginalis amplified probe tech TRICHOMONAS VAGINALIS RNA, QUAL TMA, PAP VIA Microbiology STAT 01/04/2020 12:45 PM EDT [place] NuSwab Vaginitis Plu s (VG+) NuSwab Vaginitis Plus (VG+) Microbiology Routine Vaginal odor Vaginal leukorrhea High risk sexual behavior, unspecified type Ordered: 12/28/2024 [facility] Work Phone: Comment on above: Ordered: 12/28/2024 Patient Education [facility] Work Phone: Patient referral [facility] Work Phone: End: 01-04-2020 POC UR-QUAL POC UR-QUAL Point of Care Testing Routine One Time for 1 Occurrences starting 01/04/2020 until 01/04/2020 [place] Comment on above: One Time for 1 Occur rences starting 01/04/2020 until 01/04/2020 POC Urine Qual POC Urine Qual Point of Care Testing STAT 03/08/2019 [place] Immunizations Immunization Date Immunization Notes Care Provider Fa [facility] 09-08-2024 influenza, seasonal, injectable; Translations: [Fluzone TIV PF ] Eric Ramírez [facility] Comment on above: Reason for Medicatio n: Prophylaxis 11-07-2022 tetanus toxoid, redu david diphtheria toxoid, and acellular pertussis vaccine, adsorbed Evan Moore [facility] Comment on above: Reason for Medicatio n: Other (see comment) 04-07-2021 tetanus toxoid, redu david diphtheria toxoid, and acellular pertussis vaccine, adsorbed Shabbir Mi Work Phone: [facility] 01-09-2021 tetanus toxoid, redu david diphtheria toxoid, and acellular pertussis vaccine, adsorbed Doreen GARRETT [facility] Comment on above: Early/Late Reason: E elmre/Late Reason: Nursing Judgment 11-08-2016 tetanus toxoid, redu david diphtheria toxoid, and acellular pertussis vaccine, adsorbed Doreen GARRETT [facility] Comment on above: Reason for Medicatio n: Other (see comment) 07-13-2013 hepatitis A vaccine, pediatric/adolescent dosage, 2 dose schedule Orlando Pace MD Work Phone: [facility] Work Phone: 07-13-2013 human papilloma viru s vaccine, quadrivalent Orlando Pace MD Work Phone: [facility] Work Phone: 03-02-2013 human papilloma viru s vaccine, quadrivalent Orlando Pace MD Work Phone: [facility] Work Phone: 12-15-2012 hepatitis A vaccine, pediatric/adolescent dosage, 2 dose schedule Orlando Pace MD Work Phone: [facility] Work Phone: 12-15-2012 human papilloma viru s vaccine, quadrivalent Orlando Pace MD Work Phone: [facility] Work Phone: 05-05-2012 varicella virus vaccine Harrison Pace MD Work Phone: [facility] Work Phone: 02-21-2010 meningococcal oligosaccharide (groups A, C, Y and W-135) diphtheria toxoid conjugate vaccine (MCV4O) Orlando Pace MD Work Phone: [facility] Work Phone: 02-21-2010 tetanus toxoid, redu david diphtheria toxoid, and acellular pertussis vaccine, adsorbed Orlando Pace MD Work Phone: [facility] Work Phone: 01-14-2003 diphtheria, tetanus toxoids and acellular pertussis vaccine, unspecified formulation Orlando Pace MD Work Phone: [facility] Work Phone: 01-14-2003 measles, mumps and rubella virus vaccine Orlando Pace MD Work Phone: [facility] Work Phone: 01-14-2003 poliovirus vaccine, inactivated Orlando Pace MD Work Phone: [facility] Work Phone: 05-07-2001 diphtheria, tetanus toxoids and acellular pertussis vaccine, unspecified formulation Orlando Pace MD Work Phone: [facility] Work Phone: 02-22-1999 diphtheria, tetanus toxoids and acellular pertussis vaccine, unspecified formulation Orlando Pace MD Work Phone: [facility] Work Phone: 02-22-1999 haemophilus influenz ae type b vaccine, conjugate unspecified formulation Orlando Pace MD Work Phone: [facility] Work Phone: 02-22-1999 hepatitis B vaccine, pediatric or pediatric/adolescent dosage Orlando Pace MD Work Phone: [facility] Work Phone: 02-22-1999 measles, mumps and rubella virus vaccine Orlando Pace MD Work Phone: [facility] Work Phone: 02-22-1999 poliovirus vaccine, inactivated Orlando Pace MD Work Phone: [facility] Work Phone: 02-22-1999 varicella virus vaccine Harrison Pace MD Work Phone: [facility] Work Phone: 1998 diphtheria, tetanus toxoids and acellular pertussis vaccine, unspecified formulation Orlando Pace MD Work Phone: [facility] Work Phone: 1998 haemophilus influenz ae type b vaccine, conjugate unspecified formulation Orlando Pace MD Work Phone: [facility] Work Phone: 1998 poliovirus vaccine, inactivated Orlando Pace MD Work Phone: [facility] Work Phone: 1998 diphtheria, tetanus toxoids and acellular pertussis vaccine, unspecified formulation Orlando Pace MD Work Phone: [facility] Work Phone: 1998 haemophilus influenz ae type b vaccine, conjugate unspecified formulation Orlando Pace MD Work Phone: [facility] Work Phone: 1998 hepatitis B vaccine, pediatric or pediatric/adolescent dosage Orlando Pace MD Work Phone: [facility] Work Phone: 1998 trivalent poliovirus vaccine, live, oral Orlando Pace MD Work Phone: [facility] Work Phone: 1998 hepatitis B vaccine, pediatric or pediatric/adolescent dosage Orlando Pace MD Work Phone: [facility] Work Phone: NEGATED: Highlighted row has not occurred!06-27-2021 influenza virus vaccine, unspecified formulation Doreen GARRETT [facility] NEGATED: Highlighted row has not occurred!06-27-2021 SARS-CoV-2 (COVID-19) Ad26 vaccine, recombinant Doreen GARRETT [facility] NEGATED: Highlighted row has not occurred!03-24-2019 influenza virus vaccine, unspecified formulation Doreen GARRETT [facility] Payers Date Payer Category Payer Self-pay [id number] 2016 Private Health Insurance [facility] [id number] 2016 Unknown 2016 Unknown [id number] 2014 Unknown [facility] xxxxxxxxxxx 2014-Present [phone] CLAIMS DEPARTMENT [address] [place] [address] xxxxxxxxxxx [id number] 1998 Unknown [id number] 2..840.1.798031.3.579.2. 185 1998 Unknown [id number] 2..840.1.480013.3.579.2. 182 1998 Unknown [id number] 2.16.840.1.125196.3.579.2. 356 1998 Unknown [id number] 2.16.840.1.574406.3.579.2. 356 1998 Unknown [id number] 2.16.840.1.250265.3.579.2. 356 1998 Unknown [id number] 2.16.840.1.479276.3.579.2. 356 1998 Unknown [id number] 2.16.840.1.441209.3.579.2. 356 1998 Unknown [id number] 2.16.840.1.298286.3.579.2. 356 1998 Unknown [id number] 2.16.840.1.768080.3.579.2. 72 1998 Unknown [id number] 2.16.840.1.325347.3.579.2. 1998 Unknown [id number] 2.16.840.1.770256.3.579.2. 1998 Unknown [id number] 2.16.840.1.599174.3.579.2. 1998 Unknown [id number] 2.16.840.1.643588.3.579.2. 1998 Unknown [id number] 2.16.840.1.876367.3.579.2. 1998 Unknown [id number] 2.16.840.1.461755.3.579.2. 1998 Unknown [id number] 2.16.840.1.019917.3.579.2. 1998 Unknown [id number] 2.16.840.1.981130.3.579.2. 1998 Unknown [id number] 2.16.840.1.802984.3.579.2 1998 Unknown [id number] 2.16.840.1.290606.3.579.2. 1998 Unknown [id number] 2.16.840.1.820317.3.579.2. 1998 Unknown [id number] 2.16.840.1.811125.3.579.2. 1998 Unknown [id number] 2.16.840.1.272074.3.579.2. 1998 Unknown [id number] 2.16.840.1.532917.3.579.2. 1998 Unknown [id number] 2.16.840.1.950390.3.579.2 1998 Unknown [id number] 2.16.840.1.790449.3.579.2. 1998 Unknown [id number] 2.16.840.1.856866.3.579.2 1998 Unknown [id number] 2.16.840.1.762766.3.579.2 1998 Unknown [id number] 2.16.840.1.135328.3.579.2 1998 Unknown [id number] 2.16.840.1.308215.3.579.2 1998 Unknown [id number] 2.16.840.1.942064.3.579.2 1998 Unknown [id number] 2.16.840.1.935668.3.579.2 1998 Unknown [id number] 2.16.840.1.149008.3.579.2 1998 Unknown [id number] 2.16.840.1.881121.3.579.2 1998 Unknown [id number] 2.16.840.1.209411.3.579.2. 1998 Unknown [id number] 2.16.840.1.153739.3.579.2. 1998 Unknown [id number] 2.16.840.1.705865.3.579.2 1998 Unknown [id number] 2.16.840.1.889848.3.579.2. 1998 Unknown [id number] 2.16.840.1.835950.3.579.2. 1259 1998 Unknown [id number] 2.16.840.1.020795.3.579.2. 1259 1998 Unknown [id number] 2.16.840.1.394623.3.579.2. 1259 1998 Unknown [id number] 2.16.840.1.935202.3.579.2. 1259 1998 Unknown [id number] 2.16.840.1.251457.3.579.2. 1259 1975 Unknown [id number] 2.16.840.1.258193.3.579.2. 593 1959 Unknown [id number] Unknown [id number] 2.16.840.1.256758.3.579.2. 531 Unknown [id number] 2.16.840.1.036136.3.579.2. 531 Social History Date Type Detail Facility Start: 12-30-2019 End: 10-26-2022 Tobacco smoking status RIIS Former smoker [place], [place] History of tobacco use Cigarette Smoker [place] Start: 12-30-2019 End: 12-18-2022 Cigarettes smoked current (pack per day) - Reported [facility] Start: 12-30-2019 End: 01-04-2020 Alcohol intake Current non-drinker of alcohol (finding) [place] Start: 2000 Sex Assigned At Not on file M [place] Exposure to SARS-CoV -2 (event) Unable to assess [place] Start: 03-08-2019 End: 12-18-2022 Alcohol intake No [place] Tobacco smoking status Never [facility] Start: 04-16-2022 End: 12-11-2022 Tobacco smoking status NHIS Never smoked tobacco (finding) [facility] Start: 2000 Sex Assigned At Female F [facility] Start: 12-11-2022 End: 01-10-2023 Tobacco use and exposure Smokeless tobacco non-user [facility] Work Phone: Start: 01-10-2023 Alcohol intake Lifetime non-d ildefonso (finding) [facility] Work Phone: Start: 12-31-2022 End: 01-10-2023 Exposure to SARS-CoV-2 (event) Not sure [facility] Start: 12-23-2023 End: 12-28-2024 Alcoholic beverage intake Ex-drinker (finding) [facility] How often to you hav e a drink containing alcohol? Never [facility] Start: 10-18-2024 End: 11-09-2024 Sex Female (finding) [facility] Sexual Orientation [facility] NEGATED: Highlighted rowStart: JING History of tobacco use Passive smoker [facility] Work Phone: Goals Date Patient Goal Desired Activity /State Functional Status Date Assessment Result Facility 12-28-2024 Total score [AUDIT-C] 0 12/29/19 25 1:13 PM EDT Beverly Chaudhary LPN [facility] 12-28-2024 Patient Health Quest ionnaire 2 item (PHQ-2) [Reported] [facility] 10-30-2024 Functional Status N/A [facility] 10-08-2024 Functional Status N/A [facility] 05-30-2024 Functional Status N/A [facility] 05-17-2024 Functional Status N/A [facility] 05-09-2024 Functional Status N/A [facility] 01-12-2024 Functional Status N/A [facility] 2024 Functional Status N/A [facility] 09-23-2023 Functional Status N/A [facility] 08-22-2023 Functional Status N/A [facility] 07-27-2023 Functional Status N/A [facility] 07-25-2023 Functional Status N/A [facility] 07-13-2023 Functional Status N/A [facility] 04-24-2023 Functional Status N/A [facility] 02-27-2023 Functional Status N/A [facility] 01-14-2023 Functional Status N/A [facility] 12-04-2022 Functional Status N/A [facility] 12-02-2022 Functional Status N/A [facility] 11-27-2022 Functional Status N/A [facility] 11-11-2022 Functional Status N/A [facility] 11-06-2022 Functional Status No [facility] 11-02-2022 Functional Status N/A [facility] 10-25-2022 Functional Status N/A [facility] 10-23-2022 Functional Status N/A [facility] 10-20-2022 Functional Status N/A [facility] 10-20-2022 Functional Status N/A [facility] Clinical Notes 03-25-2022 to 12-28-2024 Doreen Garrett NP - 12/28/2024 1:00 PM EDT Note Date & Type Note Facility 12-28-2024 History of Presen t illness Narrative Name: Scarlet Durand Date/Time of Service:12/28/2024 2:19 PM :2000 Age: 24 y.o. SUBJECTIVE: History of Present Illness Scarlet Durand is a 24 y.o. here for annual exam. Last pap 12-18-23 NILM. She is having vaginal issues. She has white discharge with significant odor. She used monistat cream, baby powder. She c/o right breast lump, she is not sure. Thinks it has been there a week. Can be painful to the touch. Denies nipple discharge or skin changes. She thinks she has UTI, urine has odor. Tubal for contraception. Periods can last 4-7 days, once lasted 2 weeks. She has them monthly or every 3 weeks. Periods are heavy with clotting. She does not want to try control to regulate or lighten her menses. Has some vaginal dryness. Only one time tried lubrication. Past Medical History: Diagnosis Date Bipolar disorder Fibromyalgia Gestational diabetes Review of Systems All others negative except those mentioned in HPI. Past Medical / Surgical History Past Medical History: Diagnosis Date Bipolar disorder Fibromyalgia Gestational diabetes Past Surgical History: Procedure Laterality Date SECTION, LOW TRANSVERSE SALPINGECTOMY Bilateral 11/06/2022 VAGINAL DELIVERY VAGINAL DELIVERY VAGINAL DELIVERY Family History Family History Problem Relation Name Age of Onset Breast cancer Mother 48 Heart disease Father Hypertension Father Hyperlipidemia Father Breast cancer Maternal Grandmother Breast cancer Paternal Grandmother Social History reports that she has never smoked. She has never used smokeless tobacco. She reports that she does not currently use alcohol. She reports that she does not use drugs. MEDICATIONS: No current outpatient medications on file prior to visit. No current facility-administered medications on file prior to visit. No Known Allergies Review of Systems PHYSICAL EXAM: Vitals: 12/28/24 1307 BP: 124/74 Body mass index is 44.6 kg/m . Physical Exam Constitutional: Appearance: Normal appearance. Poor hygiene. Genitourinary: Normal external female genitalia. Normal vaginal mucosa. White discharge. Cervix absent of lesions. No CMT. Uterus normal size, mobile. Right and left adnexa are non-tender, no masses. Body habitus limits accuracy of exam. Breasts: No nipple discharge, skin changes, lumps, masses. Scattered fibrocystic breast changes. Right: Normal. Left: Normal. HENT: Head: Normocephalic. Eyes: Extraocular Movements: Extraocular movements intact. Conjunctiva/sclera: Conjunctivae normal. Pulmonary: Effort: Pulmonary effort is normal. Neurological: Mental Status: She is alert and oriented to person, place, and time. Skin: General: Skin is warm and dry. Psychiatric: Mood and Affect: Mood normal. Behavior: Behavior normal. ASSESSMENT / PLAN No pap obtained today, due today. Recommend monthly self breast exams. Discussed findings of fibrocystic breast changes. Nuswab obtained to r/o infection. UA showed UTI in office today. Abx sent. Diagnosis Plan 1. Encounter for gynecological examination with abnormal finding 2. Vaginal odor NuSwab Vaginitis Plus (VG+) 3. Vaginal leukorrhea NuSwab Vaginitis Plus (VG+) 4. Abnormal urine odor POCT urinalysis dipstick manually resulted ciprofloxacin (Cipro) 500 MG tablet 5. High risk sexual behavior, unspecified type NuSwab Vaginitis Plus (VG+) Follow up in about 1 year (around 12/28/2025) for Annual exam. documented in this encounter [facility] 10-30-2024 Hospital Discharg e instructions Follow Up Care 10/30/2024 16:48:05 With:DOREEN HA Address: [facility] [place] [address] Business (1) When:Within 3 Day(s) [facility] 10-30-2024 Evaluation + Plan note Extrac emmett from: Title:ED Note Author:Blake Rivera DO Date:10/30 Gastroenteritis (K52.9: Delores nfective gastroenteritis and colitis, unspecified) Orders: fluconazole, 150 mg = 1 tab(s), Oral, Once, Take one tab by mouth daily, # 1 tab(s), Refills(s) 0, Pharmacy: [facility], 162, cm, 10/30/24 16:52:00 EDT, Height/Length Dosing, 121.8, kg, 10/30/24 16:52:00 EDT, Weight Dosing ondansetron, 4 mg = 1 tab(s), Oral, q6hr, X 3 day(s), # 10 tab(s), Refills(s) 0, Pharmacy: [facility], 162, cm, 10/30/24 16:52:00 EDT, Height/Length [...] Diff eGFR Hepatic Function Panel Lipase Level [facility] 03-15-2025 Hospital Discharge instructions Patient Education [...] are safe for you. General instructions Take xtuv-npf-rsoykyg and prescription medicines only as told by [...] provider. Document Revised: 11/20/2020 Document Reviewed: 11/20/2020 [employer] Patient Education 2023 [employer]. 10/08/2024 23:06:58 Ankle Sprain Ankle Sprain An [...] sitting or lying down. General instructions Take pkxw-wqx-ngyjztm and prescription medicines only as told by [...] provider. Document Revised: 04/16/2023 Document Reviewed: 04/16/2023 [employer] Patient Education 2023 [employer]. Follow Up Care 10/08/2024 21:17:17 With:DOREEN HA Address: [facility] Larry Gonzalez [address] [place] [phone] Business (1) When:10/15/[address] [facility] 03-14-2025 NoteED Patient Education Note Orthopedics [...] safe for you. General instructions ??? Take eyza-hqr-ijrxagj and prescription medicines only as told by [...] swelling gets worse (more content not included)... [facility]03-14-2025 Evaluation + Plan noteExtracted from: Title:ED Note [...] Views Left XR Wrist 3+ Views Left [facility] [id number] History of Present illness Narrative* Familia Knight [...] Past Medical History: Diagnosis Date Bipolar disorder ([facility]) Fibromyalgia Gestational diabetes Medications: No current [...] < 3 seconds Digits 1-5 bilateral NEURO: [place] Jeremy 5.07 monofilament was intact B/L. Vibratory [...] me p.r.n. BUCK Reynoso documented in this encounterMineral [facility] [id number] History of Present illness Narrative* BUCK Reynoso [...] Past Medical History: Diagnosis Date Bipolar disorder ([facility]) Fibromyalgia Gestational diabetes Medications: No current [...] < 3 seconds Digits 1-5 bilateral NEURO: [place] Jeremy 5.07 monofilament was intact B/L. Vibratory [...] detailed instructions. BUCK Reynoso documented in this encounterMineral Area [facility] Medical [id number] Evaluation + Plan note Diagnostic Tests Pending * T3 Total 05/31/[address] [facility] 11-03-2024 Hospital Discharge instructions Patient Education 05/30/2024 15:17:51 Nonspecific Chest Pain, Adult, Pooq-ae-Gdex Nonspecific Chest Pain Chest pain can be [...] Follow these instructions at home: Medicines Take kpwj-yde-pswruqb and prescription medicines only as told by [...] ?Eating a heart-healthy diet. A diet and nutritionist (dietitian) can help you to learn healthy [...] provider. Document Revised: 05/29/2023 Document Reviewed: 05/29/2023 [employer] Patient Education 2023 [employer]. Follow Up Care 05/30/2024 14:19:07 With:DOREEN HA Address: [address] [place] [address]- Business (1) When:06/02/2024 15:03:14 Comments:Call Dr for diagnosis based follow up [facility] 11-03-2024 NoteED Patient Education Note Gastroenterology [...] these instructions at home: Medicines ??? Take wcdl-qso-qzqzuvf and prescription medicines only as told by [...] Eating a heart-healthy diet. A diet and nutritionist (dietitian) can help you to learn healthy [...] provider. Document Revised: 05/29/2023 Document Reviewed: 05/29/2023 [employer] Patient Education ? 2023 [employer].[facility] 05-30-2024 Evaluation + Plan noteExtracted from: Title:ED Note Author:Miguelito Rubi PA-C te:05/30/24 Nonspecific chest pain (R07. 9: Chest pain, unspecified) Orders: cyclobenzaprine, 10 mg = 1 tab(s), Oral, TID, PRN for spasm, # 30 tab(s), Refills(s) 0, Pharmacy: [facility], 162, cm, 05/30/24 14:27:00 EST, Height/Length Dosing, 127, kg, 05/30/24 14:27:00 EST, Weight Dosing Basic Metabolic Panel Beta hCG Qual CBC w/ Auto Diff ED Cardiac Monitoring eGFR Oxygen Saturation Oxygen Therapy PT & PTT Saline Lock Insert Troponin 0 Hr. UA with Cult Rflx XR Chest Single View Diagnostic Tests Pending * UA with Cult Rflx 05/30/[address] [facility] 10-23-2024 History of Present illness Narrative* Familia Knight [...] numerous conservative therapies including: shoe gear modifications, oueb-dmf-cjuiksq anti-inflammatory medications, mfrz-ddk-unrtype orthotic devices to no avail. They rate the pain scale from 1-10 as an 8 with 10 being the most painful. Allergies: No Known Allergies Past Medical History: Past Medical History: Diagnosis Date Bipolar disorder ([facility]/H[facility]) Fibromyalgia Gestational diabetes Medications: No current outpatient [...] < 3 seconds Digits 1-5 bilateral NEURO: [place] Jeremy 5.07 monofilament was intact B/L. Vibratory [...] symptoms of post- static dyskinesia, 2.) Prevent njt-dmwsuz-tpipxsx contracture of the Achilles tendon. 3.) Provide [...] Supplier Guidelines. BUCK Reynoso documented in this encounterMineral Area Regional Medical [id number] Evaluation + Plan note Extracted from: Title:ED Note Author:Lukas Hernandez PA-C te:05/17/24 Pharyngitis (J02.9: Acute ph aryngitis, unspecified) Orders: amoxicillin, 500 mg = 1 cap(s), Oral, TID, X 10 day(s), # 30 cap(s), Refills(s) 0, Pharmacy: [facility], 162, cm, 05/09/24 14:21:00 EDT, Height/Length Dosing, 121.6, kg, 05/09/24 14:21:00 EDT, Weight Dosing [facility] 10-21-2024 Hospital Discharge instructions Patient Education [...] Follow these instructions at home: Medicines Take npaw-bor-asykboq and prescription medicines only as told by [...] and water are not available, use hand plant operations vice president. Make sure that all people in your [...] provider. Document Revised: 11/06/2021 Document Reviewed: 11/06/2021 [employer] Patient Education 2023 [employer] Follow Up Care 05/17/2024 08:30:06 With:DOREEN HA Address: [address] [place] [address] [place] [phone] Business (1) When:05/20/2024 08:41:[address] [facility] 10-21-2024 NoteED Patient Education Note Infectious [...] these instructions at home: Medicines ? Take czqu-khy-abaptdw and prescription medicines only as told by [...] and water are not available, use hand plant operations vice president. Make sure that all people in your [...] serious problem that i (more content not included)...[facility]10-13-2024 Hospital Discharge instructions Patient Education 05/09/2024 16:13:30 Dental Pain, Eejf-dh-Ojyr Dental Pain Dental pain is often a [...] Follow these instructions at home: Medicines Take wbwq-zac-adbmxlu and prescription medicines only as told by [...] damage to the area. Brushing your teeth [place] your teeth twice a day using a [...] right away. Call your local emergency services ([address] Do not wait to see [...] only when you eat or drink. Take jgdj-bjt-laptjpa and prescription medicines only as told by your dentist. Watch your dental pain for any changes. Let your dentist know if symptoms get worse. This information is not intended to replace advice given to you by your health care provider. Make sure you discuss any questions you have with your health care provider. Document Revised: 04/18/2021 Document Reviewed: 04/18/2021 [employer] Patient Education 2023 [employer]. Follow Up Care 05/09/2024 14:12:51 With:Dental: [facility] [phone] Address:Unknown When:05/12/2024 16:12:50 With:Dental: [facility] [phone] Address:Unknown When:05/12/2024 16:12:50 With:Dental: Joanna [employer] [facility] [phone] Address:Unknown When:05/12/2024 16:12:49 Comments:Call to schedule a follow-up appointment with the dentists provided or the family [facility] dentist on the pamphlet in the next 2 to 3 days. Take the antibiotic as prescribed. Use the viscous lidocaine as needed for pain management along with Tylenol and ibuprofen. Return to ED with any new or worsening symptoms. With:DOREEN HA Address: [place] [address]- Business (1) When:Within 3 Day(s) [facility] 10-13-2024 NoteED Patient Education Note Dentistry [...] these instructions at home: Medicines ? Take isyc-mob-uzwpggn and prescription medicines only as told by [...] to the area. Brushing your teeth ? [place] your teeth twice a day using a [...] when you eat or drink. ? Take qrvv-ahs-uprrimq and prescription medicines only as told by your dentist. ? Watch your dental pain for any changes. Let your dentist know if symptoms get worse. This information is not intended to replace advice given to you by your health care provider. Make sure you discuss any questions you have with your health care provider. Document Revised: 04/18/2021 Document Reviewed: 04/18/2021 [employer] Patient Education ? 2023 [employer].[facility] [place] 05-09-2024 Evaluation + Plan noteExtracted from: Title:ED [...] mL, Topical, QIDACHS, 100 mL, Refill(s) 0, [facility], 162, cm, 05/09/24 14:21:00 EDT, Height/Length Dosing, 121.6, kg, 05/09/24 14:21:00 EDT, Weight Dosing lidocaine topical, 200 mg, 10 mL, Soln-Oral, Oral, Once, Stop date 05/09/24 15:11:00 EDT, STAT, Start date 05/09/24 15:11:00 EDT penicillin V potassium, 500 mg = 1 tab(s), Oral, q6hr, X 7 day(s), # 28 tab(s), Refills(s) 0, Pharmacy: [facility], 162, cm, 05/09/24 14:21:00 EDT, Height/Length Dosing, 121.6, kg, 05/09/24 14:21:00 EDT, Weight Dosing penicillin V potassium, 500 mg = 1 tab(s), Tab, Oral, Once, Stop date 05/09/24 15:18:00 EDT, STAT, Start date 05/09/24 15:18:00 EDT, 05/09/24 15:18:[address] [facility] [id number] Evaluation + Plan noteExtracted from: Title:ED Note Author:Aleta Oliveira DO Date :01/13/24 Sore throat (J02.9: Acute ph aryngitis, unspecified) Orders: dexamethasone, 10 mg = 2.5 tab(s), Tab, Oral, Once, Stop date 01/13/24 0:11:00 EDT, STAT, Start date 01/13/24 0:11:00 EDT, 01/13/24 0:11:00 EDT Group A Strep by PCR Rapid Strep w/rfx [facility]06-18-2024 Hospital Discharge instructions Patient Education 01/13/2024 00:47:46 Sore Throat, [place] Sore Throat When you have a sore [...] Follow these instructions at home: Medicines Take rxxr-mwg-zhhddvx and prescription medicines only as told by [...] and water are not available, use hand plant operations vice president. Contact a doctor if: You have a [...] things can cause a sore throat. Take xkzx-wpl-nctabcz medicines only as told by your doctor. [...] provider. Document Revised: 10/10/2021 Document Reviewed: 10/10/2021 [employer] Patient Education 2022 [employer]. Follow Up Care 01/12/2024 23:47:01 With:DOREEN HA Address: [address] [place] [address] [place] [address] Business (1) When:01/16/2024 Comments:You can use ibuprofen, Tylenol every 6 hours as needed for pain. Please follow-up with your primarycare doctor next 2 to 3 days for further evaluation management. Please return to the ED for any newor worsening symptoms. [facility]06-12-2024 Evaluation + Plan noteExtracted from: Title:ED Note Author:Bi Galeana DO Date: Knee sprain (S83.90XA: Sprai n of unspecified site of unspecified knee, initial encounter) Orders: Immobilizer XR Knee Complete 4+ Views Right [facility]06-12-2024 Hospital Discharge instructions Patient Education 01/07/2024 [...] provider. Document Revised: 04/19/2022 Document Reviewed: 04/19/2022 [employer] Patient Education 2022 [employer]. 01/07/2024 00:39:45 Knee Sprain, Adult Knee Sprain, [...] sitting or lying down. General instructions Take frck-jsu-iismtbo and prescription medicines only as told by [...] provider. Document Revised: 10/21/2022 Document Reviewed: 06/02/2020 [employer] Patient Education 2022 [employer]. Follow Up Care 2024 23:16:19 With:Khari Gomez Address: [address] [place] [address] Business (1) When:01/10/2024 Comments:Call the office of your [...] in the knee. Follow-up with orthopedic surgery. [facility]02-27-2024 Evaluation + Plan noteExtracted from: Title:ED Note Author:Lukas Hernandez PA-C te:09/23/23 Flu-like symptoms (R68.89: O ther general symptoms and signs) Vomiting (R11.10: Vomiting, unspecified) Orders: acetaminophen, 975 mg = 3 tab(s), Tab, Oral, Once, Stop date 09/23/23 11:04:00 EST, STAT, Start date 09/23/23 11:04:00 EST, 09/23/23 11:04:00 EST dextromethorphan-promethazine, 5 mL, Oral, q6hr for cough for 5 day(s), 200 mL, Refill(s) 0, [facility], 162, cm, 09/23/23 8:58:00 EST, Height/Length Dosing, 121.6, kg, 09/23/23 8:58:00 EST, Weight Dosing ondansetron, 4 mg = 1 tab(s), Tab-Dis, Oral, Once, Stop date 09/23/23 8:55:00 EST, STAT, Start date 09/23/23 8:55:00 EST, 09/23/23 8:55:00 EST ondansetron, 4 mg = 1 tab(s), Oral, TID, # 15 tab(s), Refills(s) 0, Pharmacy: [facility], 162, cm, 09/23/23 8:58:00 EST, Height/Length Dosing, 121.6, kg, 09/23/23 8:58:00 EST, Weight Dosing [facility]02-27-2024 Hospital Discharge instructions Patient Education 09/23/2023 [...] Medicines to relieve symptoms. These can include dpcl-rkd-rllwcfn medicine for pain and fever, medicines for cough or congestion, and medicines to relieve diarrhea. Antiviral medicines. These medicines are available only for certain types of viruses. Some viral illnesses can be prevented with vaccinations. A common example is the flu shot. Follow these instructions at home: Medicines Take gvzd-yya-kmtkiic and prescription medicines only as told by [...] and water are not available, use hand plant operations vice president. Avoid touching your nose, eyes, and mouth, [...] provider. Document Revised: 11/27/2020 Document Reviewed: 05/23/2020 [employer] Patient Education 2022 [employer]. Follow Up Care 09/23/2023 08:36:00 With:DOREEN HA Address: [address] [place] [address] [place] [address] [facility] (1) When:09/26/2023 11:03:[address] [facility]01-27-2024 Hospital Discharge instructions Patient Education 08/22/2023 [...] pain. Follow these instructions at home: Take unsr-wuc-eqdunxq and prescription medicines only as told by [...] provider. Document Revised: 10/22/2021 Document Reviewed: 10/22/2021 [employer] Patient Education 2022 [employer]. Follow Up Care 08/22/2023 22:12:06 With:DOREEN HA Address: [facility] [address] [place] [address] [facility] (1) When:08/25/2023 Comments:Follow-up with your primary care provider in 3 to 5 days. If symptoms worsen, do not improve, or new symptoms arise please report back to emergency department for further evaluation. [facility]01-26-2024 Evaluation + Plan noteExtracted from: Title:ED Note Author:Miguelito Rubi PA-C te:08/22/23 Left otitis media (H66.92: O titis media, unspecified, left ear) Orders: amoxicillin-clavulanate, 1 tab(s), Oral, q12hr for 10 day(s), 20 tab(s), Refill(s) 0, [facility], 162, cm, 08/22/23 22:19:00 EST, Height/Length Dosing, 122.4, kg, 08/22/23 22:19:00 EST, Weight Dosing amoxicillin-clavulanate, 1 tab(s), Tab, Oral, Once, Stop date 08/22/23 22:24:00 EST, STAT, Start date 08/22/23 22:24:00 [facility]12-31-2023 Hospital Discharge instructions Patient Education 07/27/2023 21:45:13 Cellulitis, Adult, Erdg-xq-Kidw Cellulitis, Adult Cellulitis is a skin infection. [...] Follow these instructions at home: Medicines Take cywc-ssx-ekicbuo and prescription medicines only as told by [...] provider. Document Revised: 04/25/2022 Document Reviewed: 04/25/2022 [employer] Patient Education 2022 [employer]. Follow Up Care 07/27/2023 21:00:37 With:DOREEN HA Address: [facility] [place] [address]- Business (1) When:07/30/2023 21:23:55 Comments:Take the antibiotics [...] return to ED for any worsening symptoms. [facility]12-31-2023 Evaluation + Plan noteExtracted from: Title:ED Note Author:Aleta Oliveira DO Michael Date :07/27/23 Cellulitis (L03.90: Cellulit is, unspecified) Orders: ondansetron, 4 mg = 1 tab(s), Oral, q8hr, # 12 tab(s), Refills(s) 0, Pharmacy: [facility], 163, cm, 07/27/23 21:11:00 EST, Height/Length [...] tab(s), Oral, BID, 20 tab(s), Refill(s) 0, [facility], 163, cm, 07/27/23 21:11:00 EST, Height/Length Dosing, 123.4, kg, 07/27/23 21:11:00 EST, Weight Dosing [facility]12-29-2023 Hospital Discharge instructions Patient Education 07/25/2023 20:38:33 Cellulitis, Adult, Trpl-ev-Gejz Cellulitis, Adult Cellulitis is a skin infection. [...] Follow these instructions at home: Medicines Take dukp-oug-cmkxmzx and prescription medicines only as told by [...] provider. Document Revised: 04/25/2022 Document Reviewed: 04/25/2022 [employer] Patient Education 2022 [employer]. Follow Up Care 07/25/2023 20:22:08 With:DOREEN HA [facility] [address] [facility] [place] [address] [facility] (1) When:07/28/2023 20:34:28 Comments:Follow-up with your primary care provider in 3 to 5 days. If symptoms worsen, do not improve, or new symptoms arise please report back to emergency department for further evaluation. [facility]12-17-2023 Hospital Discharge instructions Patient Education 07/13/2023 [...] at pharmacies and retail stores. Eat bland, hbqo-fq-bovhph foods in small amounts as you are [...] and water are not available, use hand plant operations vice president. Make sure that everyone in your household washes their hands frequently. Take rqwa-hmu-lylgpzh and prescription medicines only as told by [...] and water are not available, use hand plant operations vice president. Watch your condition for any changes and for signs of dehydration. Keep all follow-up visits. This is important. This information is not intended to replace advice given to you by your health care provider. Make sure you discuss any questions you have with your health care provider. Document Revised: 01/18/2022 Document Reviewed: 01/18/2022 [employer] Patient Education 2022 [employer]. Follow Up Care 07/13/2023 15:24:31 With:DOREEN HA Address: [facility] [place] [address] Business (1) When:Within 3 Day(s) [facility]12-17-2023 Evaluation + Plan note Diagnostic Tests Pending * Group A Strep by PCR 07/13/[address] [facility]09-28-2023 Evaluation + Plan noteExtracted from: Title:ED Note Author:Lukas Hernandez PA-C te:04/24/23 Pharyngitis (J02.9: Acute ph aryngitis, unspecified) Orders: azithromycin, = 1 packet(s), Oral, As Directed, as directed on package labeling, X 5 day(s), # 6 tab(s), Refills(s) 0, Pharmacy: [facility], 163, cm, 04/24/23 9:56:00 EDT, Height/Length Dosing, 118, kg, 04/24/23 9:56:00 EDT, Weight Dosing dexamethasone, 10 mg = 2.5 mL, Injection, Oral, Once, Stop date 04/24/23 10:14:00 EDT, STAT, Start date 04/24/23 10:14:00 EDT, 04/24/23 10:14:[address] [facility]09-28-2023 Hospital Discharge instructions Patient Education 04/24/2023 [...] Follow these instructions at home: Medicines Take drra-mtz-ndzbhzg and prescription medicines only as told by [...] and water are not available, use hand plant operations vice president. Do not touch your eyes, nose, or [...] provider. Document Revised: 10/10/2021 Document Reviewed: 10/10/2021 [employer] Patient Education 2022 [employer]. Follow Up Care 04/24/2023 09:33:19 With:Daniella Floyd Address: [address] [place], [place] [id number]- [phone] Business (1) When:04/27/2023 10:16:[address] [facility]08-03-2023 Evaluation + Plan noteExtracted from: Title:ED Note Author:Bi Galeana DO Date: Pain in back (M54.9: [place], unspecified) Orders: methylPREDNISolone, = 1 packet(s), Oral, As Directed, as directed on package labeling, X 6 day(s), # 21 tab(s), Refills(s) 0, Pharmacy: [facility], 163, cm, 02/27/23 10:56:00 EDT, Height/Length Dosing, 118, kg, 02/27/23 10:56:00 EDT, Weight Dosing [facility]08-03-2023 Hospital Discharge instructions Patient Education 02/27/2023 [...] as you can. Do not try to pickle maker a heavy object that is far from [...] on shelves at waist level, and put precision structural metal fitter objects on lower or higher shelves. Find [...] provider. Document Revised: 11/05/2021 Document Reviewed: 11/05/2021 [employer] Patient Education 2022 [employer]. 02/27/2023 11:02:10 Back Exercises Back Exercises The [...] back becomes more flexible: 1.Get into a bvnuu-nki-opnqn position on a firm bed or the [...] provider. Document Revised: 01/08/2022 Document Reviewed: 09/26/2021 [employer] Patient Education 2022 [employer]. 02/27/2023 11:02:10 Acute Back Pain, Adult Acute [...] home: Managing pain, stiffness, and swelling Take wdco-pwh-yuoualm and prescription medicines only as told by [...] each day. Do not sit, drive, or criminal records technician one place for more than 30 minutes [...] put less stress on your back. Take xpvq-zfw-rloaqky and prescription medicines only as told by your health care provider, and apply heat or ice as told. This information is not intended to replace advice given to you by your health care provider. Make sure you discuss any questions you have with your health care provider. Document Revised: 10/05/2021 Document Reviewed: 10/05/2021 [employer] Patient Education 2022 [employer]. Follow Up Care 02/27/2023 10:50:37 With:ORLANDO PACE Address: [address] [place] [address]- When:03/02/2023 11:01:33 Comments:Call the office of your [...] breath, or any new or worsening symptoms. [facility]06-20-2023 Evaluation + Plan noteExtracted from: Title:ED Note Author:Nabila Jane Date: Neck muscle spasm (M62.838: Other muscle spasm) Neck pain (M54.2: Cervicalgia) Orders: methocarbamol, 750 mg = 1 tab(s), Oral, TID, X 7 day(s), # 21 tab(s), Refills(s) 0, Pharmacy: [facility], 160, cm, 01/14/23 10:35:00 EDT, Height/Length Dosing, 121, kg, 01/14/23 10:35:00 EDT, Weight Dosing naproxen, 500 mg = 1 tab(s), Oral, BID, Take one tab by mouth two times a day, # 14 tab(s), Refills(s) 0, Pharmacy: [facility], 160, cm, 01/14/23 10:35:00 EDT, Height/Length Dosing, 121, kg, 01/14/23 10:35:00 EDT, Weight Dosing XR Spine Cervical [address] [facility]06-20-2023 Hospital Discharge instructions Patient Education 01/14/2023 [...] provider. Document Revised: 01/08/2022 Document Reviewed: 01/08/2022 [employer] Patient Education 2022 [employer]. 01/14/2023 11:31:32 Muscle Cramps and Spasms, Zpfh-hw-Hbrv Muscle Cramps and Spasms Muscle cramps and [...] avoid intense exercise for several days. Take fmuu-www-qvssfza and prescription medicines only as told by [...] provider. Document Revised: 02/01/2022 Document Reviewed: 02/01/2022 [employer] Patient Education 2022 [employer]. Follow Up Care 01/14/2023 10:30:56 With:ORLANDO PACE Address: [address] [place] [address]- When:Within 3 Day(s) [facility]06-16-2023 History of Present illness Narrative* [place] [...] and related disorder (CMS/HCC) - Primary Schizophrenia ([facility]) Relevant Orders Referral to Psychiatry Referral to Psychology Follow Up In [facility] - PCP Fibromyalgia Anxiety Class 3 severe obesity due to excess calories with serious comorbidity and body mass index (BMI) of40.0 to 44.9 in adult ([facility]) Patient education provided. Stay current with age appropriate health maintenance as instructed. Appointment here or ER with new or worsening symptoms' Keep appropriate follow-up visit. Stay current with proper immunizations Report suicidal ideation report psychotic or manic symptoms Refer to psychiatry and psychology Discussed at length with patient and mom Diet and weight loss also suggested 3-month follow[facility] Phone: [phone] 617-621705-08-2023 Evaluation + Plan noteExtracted from: Title:ED Note Author:Eric Ramírez DO Date :12/02/22 Foot sprain (S93.609A: Unspe cified sprain of unspecified foot, initial encounter) Orders: acetaminophen, 975 mg = 3 tab(s), Tab, Oral, Once, Stop date 12/02/22 3:25:00 EDT, STAT, Start date 12/02/22 3:25:00 EDT, 12/02/22 3:25:00 EDT XR Foot 3+ Views Left [facility]05-08-2023 Hospital Discharge instructions Patient Education 12/02/2022 [...] or evens your foot. General instructions Take xsfh-qmo-siwgboa and prescription medicines only as told by [...] provider. Document Revised: 11/03/2020 Document Reviewed: 11/03/2020 [employer] Patient Education 2022 [employer]. Follow Up Care 12/02/2022 02:24:03 With:ORLANDO PACE Address: [address] [place] [address]- When:Within 3 Day(s) [facility]05-04-2023 Hospital Discharge instructions Patient Education 11/27/2022 23:06:01 Abdominal Pain, Adult, Yhrk-re-Lnmr Abdominal Pain, Adult Many things can cause belly (abdominal) pain. Most times, belly pain is not dangerous. Many cases of belly pain can be watched and treated at home. Sometimes, though, belly pain is serious. Your doctor will try to find the cause of your belly pain. Follow these instructions at home: Medicines Take yisk-xyg-qnigukd and prescription medicines only as told by [...] your belly pain for any changes. Take iksa-wuf-ekloaux and prescription medicines only as told by [...] provider. Document Revised: 11/22/2019 Document Reviewed: 11/22/2019 [employer] Patient Education 2022 [employer]. Follow Up Care 11/27/2022 20:26:43 With:Evan Moore Address:Unknown When:11/30/2022 With:ORLANDO PACE Address: [address] [place] [address]- When:11/30/2022 Comments:Take the antibiotics 3 times a day as prescribed to completed the course. You can take the naproxenevery 12 hours as needed for pain. Please call Dr. Perez's office tomorrow to schedule a follow-up to make sure things are getting better. Please return to the ED for any new or worsening symptoms. [facility]05-03-2023 Evaluation + Plan noteExtracted from: Title:ED Note Author:Aleta Oliveira DO Michael Date :11/27/22 Abdominal pain, acute (R10.9 : Unspecified abdominal pain) Orders: cephalexin, 500 mg = 1 cap(s), Cap, Oral, Once, Stop date 11/27/22 22:41:00 EDT, STAT, Start date 11/27/22 22:41:00 EDT, 11/27/22 22:41:00 EDT cephalexin, 500 mg = 1 cap(s), Oral, TID, X 5 day(s), # 15 cap(s), Refills(s) 0, Pharmacy: [facility], 160, cm, 11/27/22 20:40:00 EDT, Height/Length Dosing, 119.2, kg, 11/27/22 20:40:00 EDT, Weight Dosing ketorolac, 30 mg = 1 mL, Injection, IV Push, Once, Stop date 11/27/22 22:41:00 EDT, STAT, Start date 11/27/22 22:41:00 EDT, 11/27/22 22:41:00 EDT naproxen, 500 mg = 1 tab(s), Oral, BID, PRN for pain, # 20 tab(s), Refills(s) 0, Pharmacy: [facility], 160, cm, 11/27/22 20:40:00 EDT, Height/Length Dosing, 119.2, kg, 11/27/22 20:40:00 EDT, Weight Dosing Automated Diff Basic Metabolic Panel CBC w/ Auto Diff CT Abdomen/Pelvis w/o Contrast eGFR Hepatic Function Panel UA With Cult Reflex [facility]04-17-2023 Hospital Discharge instructions Patient Education 11/11/2022 20:33:22 Edema, Vaoq-xw-Aliu Edema Edema is when you have too [...] much fluid you drink (fluid restriction). Take oyvw-fzn-zepeoxm and prescription medicines only as told by [...] 12/30/2008 Document Revised: 07/17/2018 Document Reviewed: 08/01/2017 [employer] Patient Education 2020 [employer] Follow Up Care 11/11/2022 19:33:12 With:Evan Moore Address: [address], [address] [place] [address]- Business (1) When:11/14/2022 20:27:58 Comments:Follow-up with Dr. Moore for further evaluation of your symptoms. With:ORLANDO PACE Address: [address] [facility] [place] [address]- When:11/14/2022 20:27:51 Comments:Follow-up with your primary care provider in 3 to 5 days. If symptoms worsen, do not improve, or new symptoms arise please report back to emergency department for further evaluation. [facility]04-17-2023 Evaluation + Plan noteExtracted from: Title:ED Note Author:Miguelito Rubi PA-C te:11/11/22 Leg swelling (M79.89: Other specified soft tissue disorders) [facility]04-14-2023 Evaluation + Plan noteExtracted from: Title:OB Inpatient Progress Note * Au thor:Evan Moore MD Date:11/08/22 Impression and Plan Condition: Stable. Plan Routine care. Extracted from: Title:OB Inpatient Progress Note * Elizabeth michelle:Evan Moore MD Date:11/07/22 Impression and Plan Condition: Stable. Plan Routine care. Extracted from: Title:ANES Post-operative Note - Spinal Author:Fernie Sanchez Jr., DO Date:11/06/22 Plan Transfer/Discharge: Transfer/Discharge Discharge when meets criteria ( To home ). Extracted from: Title:ANES Pre-operative Note - Adult Author:Fernie Barrera Jr., DO Date:11/06/22 Plan Citizen Of [place] Society of Anesthesiologists (ASA) physical status classification: Class II. Anesthetic Preoperative Plan: Anesthesia. Regional Spinal. Extracted from: Title:OB Admission H&P L&D/ PreOp * Author:Evan Abarca MD Date:11/06/22 Impression and Plan Diagnosis Gestational diabetes mellitus in childbirth, insulin controlled (ICH41-ZU O24.424, Discharge, Medical). Encounter for supervision of other normal , third trimester ([id number]-GH Z34.83, Discharge, Medical). Encounter for sterilization (QLM11-SR Z30.2, Discharge, Medical). 38 weeks gestation of (YGQ91-XW Z3A.38, Discharge, Medical). condition: Stable. Maternal condition: Stable. Plan Admit. 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 ?If you have a dressing, change it [...] this until your incision heals. Medicines Take odoz-twm-xgsabhq and prescription medicines only as told by [...] 04/05/2003 Document Revised: 01/20/2019 Document Reviewed: 01/20/2019 [employer] Patient Education 2020 [employer]. Follow Up Care 10/24/2022 10:06:20 With:Evan Moore Address: [address] [place] [address] [address]- Business (1) When:6 weeks Comments:Call Dr if fever>100.5 F, heavy bleedingCall for any problems. [facility]04-08-2023 Hospital Discharge instructions Patient Education 11/02/2022 [...] including vitamins, herbs, eye drops, creams, and ylvj-qcn-aabcsoy medicines. Any problems you or family members [...] incisions will be closed with stitches (sutures). [place], skin glue, or adhesive strips may also [...] 07/14/2006 Document Revised: 01/18/2019 Document Reviewed: 01/18/2019 [employer] Patient Education 2020 [employer]. Follow Up Care 11/02/2022 18:12:22 With:Follow up with primary care provider Address:Unknown When: Unknown Comments:Call for any problems.Call Dr if fever>100.5 F, heavy bleedingCall for severe abdominal painCallphysician for heavy vaginal bleedingReturn for contractions closer, longer, harderReturn for decreased movementReturn if ruptured membranes or vaginal bleedingC-Section is scheduled for November 06 at 12:[address] [facility]03-31-2023 Hospital Discharge instructions Follow Up Care 10/25/2022 14:33:08 With:Evan Moore Address:Unknown When:10/29/2022 Comments:Call for any problems.Return for contractions closer, longer, harderReturn for decreased movementReturn if ruptured membranes or vaginal bleeding [facility]03-29-2023 Hospital Discharge instructions Follow Up Care 10/23/2022 14:40:42 With:Evan Moore Address:Unknown When:10/30/2022 14:00:00 Comments:Return for decreased movementReturn for contractions closer, longer, harderReturn if rupturedmembranes or vaginal bleeding [facility]03-27-2023 Hospital Discharge instructions Follow Up Care 10/20/2022 22:10:09 With:Evan Moore Address:Unknown When:10/23/2022 Comments:Appointment has already been scheduledCall for severe abdominal painReturn for contractions closer,longer, harderReturn for decreased movementReturn if ruptured membranes or vaginal bleeding [facility]03-26-2023 Hospital Discharge instructions Patient Education 10/20/2022 [...] mucus plug may gradually pass over several days. Your baby moving (dropping) lower in your pelvis to get into position for (lightening). When this happens, you may feel more pressure on your bladder and pelvic bone and less pressure on your ribs. This may make it easier to breathe. It may also cause you to need to urinate more often and have problems with bowel movements. Having practice contractions (Deford Watson contractions) that occur at irregular (unevenly [...] 12/19/2017 Document Revised: 04/13/2018 Document Reviewed: 12/19/2017 [employer] Patient Education 2020 [employer]. Follow Up Care 10/20/2022 13:33:25 With:Evan Moore Address:Unknown When:1 to 2 days Comments:Appointment has already been scheduledKEEP NEXT NST AND APPPOINTMNET WITH DR. MOORE [facility]03-26-2023 Evaluation + Plan note Diagnostic Tests Pending * Urine Culture 10/20/[address] [facility]03-14-2023 Hospital Discharge instructions Follow Up Care 10/08/2022 07:51:29 With:Evan Moore Address:Unknown When:10/16/2022 Comments:Call for any problems.Call for fever > 100.5 FCall for severe abdominal painCall physician for heavy vaginal bleedingCall physician if symptoms worsenReturn for contractions closer, longer, harderReturn for decreased movementReturn if ruptured membranes or vaginal bleeding [facility]08-29-2022 Evaluation + Plan note Diagnostic Tests Pending * Urine Culture 03/25/22 * Hepatitis B Surface Antigen 03/25/22 * RPR with Conf Rfx 03/25/22 * Rubella Antibody IgG 03/25/22 * Rubella Antibody IgM 03/25/22 * HIV Screen 4th Generation wRfx 03/25/[address] Future Appointments Appointment Date:11/06/2022 12:00:00 PM Scheduled Provider: Location:[facility] App[facility] Future Appointments Appointment Date:11/06/2022 12:00:00 PM Scheduled Provider: Location:[facility] Appointment Type:Surgery FT Diagnostic Tests Pending * Urine Culture [facility]02/[address] Future [facility]ointments Appointment [...] Location:.[place] Appointment Type:PT Re-Eval 30 (FT) [facility] Evaluation noteNo assessment information available [facility] Work Phone: Evaluation note* Diagnosis Bipolar and related disorder (CMS/HCC)- Primary Schizophrenia, unspecified type (CMS/HCC) Fibromyalgia Unspecified myalgia and myositis Anxiety Anxiety state, unspecified Class 3 severe obesity due to excess calories with serious comorbidity and body mass index (BMI) of 40.0 to 44.9 in adult ([facility]) documented in this encounter [facility] Work Phone: Evaluation note* Diagnosis Calcaneal spur of foot, right- Primary Plantar fasciitis Plantar fascial fibromatosis Calcaneal spur, left foot Gastrocnemius equinus of left lower extremity Gastrocnemius equinus of right lower extremity [facility] Diagnosis Gastrocnemius equinus of right lower extremity- Primary Plantar fasciitis Plantar fascial fibromatosis Gastrocnemius equinus of left lower extremity Calcaneal spur, left foot Calcaneal spur of foot, right [facility] Diagnosis Plantar fasciitis- Primary Plantar fascial fibromatosis Gastrocnemius equinus of left lower extremity Gastrocnemius equinus of right lower extremity [facility] Diagnosis Plantar fasciitis- Primary Plantar fascial fibromatosis Gastrocnemius equinus of left lower extremity Gastrocnemius equinus of right lower extremity [facility] Diagnosis Encounter for gynecological examination with abnormal finding- Primary Vaginal odor Unspecified symptom associated with female genital organs Vaginal leukorrhea Abnormal urine odor Other nonspecific finding on examination of urine High risk sexual behavior, unspecified type [facility] N[facility]ative* Familia Knight [...] Past Medical History: Diagnosis Date Bipolar disorder ([facility]) Fibromyalgia Gestational diabetes Medications: No current [...] < 3 seconds Digits 1-5 bilateral NEURO: [place] Jeremy 5.07 monofilament was intact B/L. Vibratory [...] orthotic devices. BUCK Reynoso [facility] Narrative No data available for this section [facility] Discharge instructions No data available for this section [facility] Discharge instructions Additional Instructions Increase fluid intake. Empty bladder frequently.[facility] Work Phone: Progress note No data available for this section [facility] Consultation (Routine) - Authorized Specialty Diagnoses / Procedures Referred By Mike t Referred To Contact Primary Care Diagnoses Schizophrenia, unspecified type (CMS/HCC) Procedures Follow Up In Advanced Primary Care - PCP Orlando Pace MD [address] [address] Referral ID Status Reason Start Date Expiration Date V isits Requested Visits Authorized [id number] Authorized 01/10/2023 07/09/2023 1 1 * Consultation (Routine) - Authorized Specialty Diagnoses / Procedures Referred By Mike t Referred To Contact Psychology Diagnoses Schizophrenia, unspecified type (CMS/HCC) Procedures VA OFFICE/OUTPATIENT NEW HIGH MDM 60-74 MINUTES Orlando Pace MD [address] [address] Referral ID Status Reason Start Date Expiration Date Visits Requested Visits Authorized [id number] Authorized Specialty Services Required 01/10/2023 07/09/2023 1 1 * Consultation (Routine) - Authorized Specialty Diagnoses / Procedures Referred By Mike t Referred To Contact Psychiatry Diagnoses Schizophrenia, unspecified type (CMS/HCC) Procedures VA OFFICE/OUTPATIENT NEW HIGH MDM 60-74 MINUTES Orlando Pace MD [address] [address] Referral ID Status Reason Start Date Expiration Date Visits Requested Visits Authorized [id number] Authorized Specialty Services Required 01/10/2023 07/09/2023 1 1 [facility] Work Phone: Summary Purpose Family [...] FoundNo Family History Records Found Advance Directives Documents on File Type Date Recorded Patient Corrosion Technician Expl anation Advance Directives and Living Will Power of Civil Rights Representative Advance Directive Response Recorded Date/ Time Advance Directives No November 03 11:42pm Advance Directive Response Recorded Date/ Time Advance Directives No November 03 10:42pm Discharge Instructions * Attachments The following attachments cannot be sent through Care Everywhere. * Amy Dermatitis ([place]ayan) * UTI (Urinary Tract Infection): Female ([place]) documented in this encounter* Attachments The following attachments cannot be sent through Care Everywhere. * Trichomoniasis ([place]) * UTI (Urinary Tract Infection): Female ([place]) documented in this encounter* Attachments The following attachments cannot be sent through Care Everywhere. * Back Pain ([place]ayan) * Sciatica ([place]aguayan) * Dysuria ([place]ayan) * Constipation ([place]aguayan) * Abdominal Pain ([place]aguayan) * Nausea and Vomiting ([place]ayan) documented in this encounter Assessments Diagnosis Acute [...] Date Unknown October 16, 2024 11: 15am Chief Complaint Admit Date Unknown October 16, 2024 11: 15am Unknown November 07, 2024 4:3 5pm Additional Source Comments INFORMATION SOURCE (unrecogn ized section and content) DATE CREATED AUTHOR 01/20/2018 [facility] DATE CREATED AUTHOR AUTHOR'S ORGANIZ ATION 05/29/2018 [facility] DATE CREATED AUTHOR AUTHOR'S ORGANIZ ATION 09/28/2020 [facility] DATE CREATED AUTHOR AUTHOR'S ORGANIZ ATION 12/29/2020 [facility] DATE CREATED AUTHOR AUTHOR'S ORGANIZ ATION 12/13/2021 [facility] DATE CREATED AUTHOR AUTHOR'S ORGANIZ ATION 01/10/2022 [facility] DATE CREATED AUTHOR AUTHOR'S ORGANIZ ATION 09/04/2022 [employer] DATE CREATED AUTHOR AUTHOR'S ORGANIZ ATION 10/20/2022 [facility] DATE CREATED AUTHOR AUTHOR'S ORGANIZ ATION 01/14/2024 [facility] DATE CREATED AUTHOR AUTHOR'S ORGANIZ ATION 05/31/2024 [facility] DATE CREATED AUTHOR AUTHOR'S ORGANIZ ATION 06/01/2024 [facility] DATE CREATED AUTHOR AUTHOR'S ORGANIZ ATION 06/04/2024 [facility] DATE CREATED AUTHOR AUTHOR'S ORGANIZ ATION 09/11/2024 [facility] DATE CREATED AUTHOR AUTHOR'S ORGANIZ ATION 11/01/2024 [facility] DATE CREATED AUTHOR AUTHOR'S ORGANIZ ATION 11/05/2024 [facility] DATE CREATED AUTHOR AUTHOR'S ORGANIZ ATION 11/11/2024 [facility] DATE CREATED AUTHOR AUTHOR'S ORGANIZ ATION 12/09/2024 [facility] DATE CREATED AUTHOR AUTHOR'S ORGANIZ ATION 12/29/2024 [facility] EPIC Reason for Visit (unrecogniz ed section and [...] Team Status: Inactive Member Role Status Dates [facility] Primary Care Provider Active Gary Candelario PA-C Emergency Provider Active Team Status: Inactive Member Role Status Dates [facility] Primary Care Provider Active Evan Moore MD [...] NON STAFF Primary Care Provider Active Sanaz Mtahur DO Attending Provider Active Team Status: Inactive Member Role Status Dates NON STAFF Primary Care Provider Active Evan Moore MD Admit Provider, Attending Provider A ctive Operations Support Specialist Relationship Specialty Start Date End Date Mattie Lipscomb MD [address] [place] [address] PCP - [facility] PCP 01/25/22 Orlando Pace MD [address] [address] PCP - General 09/03/22 Operations Support Specialist Relationship Specialty Start Date End Date Unallocated, Annamarie Ambriz MD [facility] [place] [address] PCP - General 12/18/22 Operations Support Specialist Relationship Specialty Start Date End Date Unallocated, Annamarie Ambriz MD [facility] [place] [address] PCP - General 12/18/22 Operations Support Specialist Relationship Specialty Start Date End Date Unallocated, Annamarie Ambriz MD [facility] [place] [address] PCP - General 12/18/22 Operations Support Specialist Relationship Specialty Start Date End Date Unallocated, Annamarie Ambriz MD [facility] [place] [address] PCP - General 12/18/22 Operations Support Specialist Relationship Specialty Start Date End Date Unallocated, Annamarie Ambriz MD [address] [place], [place] [address] [address] PCP - General 12/18/22 Team Status: Inactive Member Role Status Dates Triny Ray MD Attending Provider Active Sta rt: October 16, 2024 End: October 16, 2024 Team Status: Inactive Member Role Status Dates Papi Portillo DO Attending Provider Active Start : November 07, 2024 End: November 07, 2024 Operations Support Specialist Relationship Specialty Start Date End Date Unallocated, Annamarie Ambriz MD [address] [place], [place] [address] [address] PCP - General 12/18/22 Goals (unrecognized section [...] BE BASED ON THE PRIMARY CLINICAL RECORDS. [facility] [employer] [facility]. provides no warranty or guarantee of the accuracy or completeness of information in this document.
--- NOTE | 2025-03-22 11:38 | ECG_ITS ---
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
--- NOTE | 2025-03-22 11:52 | XR_ITS ---
The [place] [id number] Patient Name: BRIAN LEÓN MRN: [id number] date: 2000 Sex: F Assigned Patient Location: ER Current Patient Location: ER Accession/Order Number: [id number] Exam Date: 03/22/2025 11:46 Report Date: 03/22/2025 12:01 At the request of: LEEANNE BRUNER DO Procedure: XR chest 2V PA AND LATERAL CHEST: CLINICAL HISTORY: Chest pain today and shortness of breath COMPARISON: None There is shallow inspiration. There is no focal parenchymal consolidation, effusion or pneumothorax. The cardiac, hilar and mediastinal silhouettes are within normal limits. There is no vascular congestion. The visualized bony thorax is intact. There is subtle scoliotic curvature. XR/XR chest 2V IMPRESSION: NO ACUTE CARDIOPULMONARY ABNORMALITY. Impression dictated by: Mago Cheung M.D. 03/22/2025 12:01 PM Dictation Location: [employer] Electronically authenticated by: [id number] Y Date: 03/22/2025 12:01
[2025-03-22] MEDS: IBUPROFEN 600 MG TABLET PO (11:58)
[2025-03-22] MEDS: LIDOCAINE 5% PATCH 1 PATCH TOPICAL (11:59)
--- NOTE | 2025-03-22 19:56 | ED_ITS ---
HPI HPI - General Adult General Chief complaint: Chest Pain Stated complaint: CHEST PAIN Time Seen by Provider: 03/22/25 11:18 Source: patient Mode of arrival: walk-in Limitations: no limitations History of Present Illness HPI narrative: Patient is a 25-year-old female presenting to the emergency department for evaluation of chest pain. Patient states that the pain is located on the left side of her chest. She states it feels sharp, and when she presses on it, makes it feel worse. She denies any injury to the area. She states the pain has been ongoing for the last 6 or so hours. She denies any associated nausea, vomiting, diaphoresis, or radiation to her arm/jaw. She has history of cardiac disease. No history of DVT/PE, no leg swelling, no hemoptysis, no recent immobilizations or surgeries. She denies being . She is not on control. Related Data Home Medications ?Medication ?Instructions ?Recorded ?Confirmed No Known Home Medications 03/22/2502/26 Allergies Allergy/AdvReac Type Severity Reaction Status Date / Time No Known Drug Allergies Allergy Verified 03/22/25 11:14 Opioid HPI Opioid Management Most Recent Opioid Data: Last Pain Scale 8 Today, 11:14 Review of Systems ROS Status of ROS 10 or more systems reviewed and unremark able except as noted in history and below PFSH PFSH Social History Little interest or pleasure in doing things: not at all Feeling down, depressed, or hopeless: not at all Exam Narrative Exam Narrative: CONSTITUTIONAL: Well-appearing, answering questions and following commands appropriately SKIN: Was warm and dry. EYES: No conjunctival pallor. EARS, NOSE, THROAT: No JVD. RESPIRATORY: Clear to auscultation bilaterally, no wheezes, crackles, or stridor, no use of accessory muscles CARDIOVASCULAR: Normal rate and regular rhythm. There is no S3, S4, murmur, rub. Radial pulses are 2+ and symmetrical. GASTROINTESTINAL: Abdomen was soft, non-tender, and non-distended. There is no guarding or rebound tenderness MUSCULOSKELETAL: There was no lower extremity edema, erythema, or tenderness. NEUROLOGIC: Patient is awake and alert. Equal strength in all extremities. Facies were symmetrical. Constitutional Vital Signs, click to edit/add: Last Vital Signs Temp 99.2 F 03/22/25 11:14 Pulse 70 03/22/25 12:15 Resp 19 03/22/25 12:15 BP 109/77 03/22/25 12:15 Pulse Ox 100 03/22/25 12:15 O2 Del Method Room Air 03/22/25 12:15 Course Vital Signs Vital signs: Vital Signs Temperature 99.2 F 03/22/25 11:14 Pulse Rate 72 03/22/25 11:14 Respiratory Rate 20 03/22/25 11:14 Blood Pressure 110/75 03/22/25 11:14 Pulse Oximetry 100 03/22/25 11:14 Oxygen Delivery Method Room Air 03/22/25 11:14 Temperature 99.2 F 03/22/25 11:14 Pulse Rate 70 03/22/25 12:15 Respiratory Rate 19 03/22/25 12:15 Blood Pressure 109/77 03/22/25 12:15 Pulse Oximetry 100 03/22/25 12:15 Oxygen Delivery Method Room Air 03/22/25 12:15 Medical Decision Making MDM Narrative Medical decision making narrative: Patient is a 25-year-old female presenting to the emergency department for 6- hour history of left-sided reproducible chest pain. Vital signs arrival are within normal limits. She is afebrile and hemodynamically stable. Clinically, the patient's chest pain appears to be musculoskeletal in nature given the reproducibility of her symptoms upon palpation of the chest wall. She has no injuries to suggest any fractures or pneumothorax. She is otherwise healthy with no cardiac risk factors, making ACS less likely. I did consider PE, however using the PERC criteria, this etiology can be ruled out. Screening chest x-ray and EKG were obtained. She was treated symptomatically with oral Motrin and Lidoderm patch. Chest x-ray independently reviewed/interpreted by myself demonstrated no acute cardiopulmonary process. 12 Lead EKG: Normal sinus rhythm at a normal rate. Normal axis. No ST segment elevations. QRS, RI, and QTc interval within normal limits. No S1Q3T3. Final impression: normal sinus rhythm without evidence of acute myocardial ischemia I do believe the patient is stable for discharge at this time. Patient feels improved upon reevaluation. Patient's presentation is most likely consistent with musculoskeletal chest pain. They were instructed to follow up with her PCP should her symptoms persist. Return precautions were given including any new or worsening symptoms. Patient understands and agrees to the plan. FINAL IMPRESSION: #Acute musculoskeletal chest pain DISPOSITION: Discharged home CONDITION: Good Differential Diagnosis Differential Diagnosis: Costochondritis, musculoskeletal chest pain, pneumothorax Imaging Data Chest x-ray: Attestation: I personally reviewed and interpreted this imaging study as follows: Radiologist's impression: ITS Impressions Chest X-Ray 03/22/25 11:52 IMPRESSION: NO ACUTE CARDIOPULMONARY ABNORMALITY. Impression dictated by: Mago Cheung M.D. 03/22/2025 12:01 PM [facility]ict[facility] Electron[facility] authenticated by: [id number] Y Date: 03/22/2025 12:01 ECG Data Attestation: I personally reviewed and interpreted this ECG as follows: Discharge Plan Discharge Chief Complaint: Chest Pain Clinical Impression: Atypical chest pain Patient Disposition: Home, Self-Care Time of Disposition Decision: 12:06 Condition: Good Mode of Transportation: Private Vehicle Prescriptions / Home Meds: No Action No Known Home Medications Print Language: Indian Instructions: Chest Wall Pain (ED) Referrals: KIMBERLEE HA [Primary Care Provider, Unknown] - 1 week Discharge Date/Time: 03/22/25 12:16
== END 2025-03-22 12:16 | disposition home or self-care (01) ==
PROVIDERS: Emergency Provider Student in an Organized Health Care Education/Training Program; PCP Nurse Practitioner Family
DX: R07.89 Other chest pain (principal)
CPT/HCPCS: 71046; 93005; 99284